=== PATIENT | female | born 1950 | race Caucasian/White ===

== ENCOUNTER 2023-02-25 09:53 | Outpatient (OUT) | payer MEDICARE, OTHER, SELFPAY ==
[2023-02-25 10:32] LABS: Basophils Absolute Auto 0.1 10^3/uL (0.0-0.1); Basophils Percent Auto 0.8 % (0.2-2.0); Eosinophils Absolute Auto 0.3 10^3/uL (0.0-0.7); Hematocrit 42.1 % (36.0-48.0); Hemoglobin 12.7 g/dL (12.0-16.0); Immature Granulocytes Abs Auto 0.02 10^3/uL (0.00-0.03); Immature Granulocytes Pct Auto 0.3 % (0.0-0.5); Lymphocytes Absolute Auto 2.3 10^3/uL (1.2-3.8); Lymphocytes Percent Auto 35.4 % (20.5-60.0); Mean Corpuscular HGB Conc 30.2 g/dL (29.9-35.2); Mean Corpuscular Hemoglobin 25.5 pg (26.7-34.0); Mean Corpuscular Volume 84.5 fL (81.0-99.0); Mean Platelet Volume 11.4 fL (9.5-13.5); Monocytes Absolute Auto 0.6 10^3/uL (0.3-0.8); Monocytes Percent Auto 9.3 % (1.7-12.0); Neutrophils Absolute Auto 3.1 10^3/uL (1.4-6.5); Neutrophils Percent Auto 49.2 % (43.0-75.0); Platelet Count 251 10^3/uL (150-450); Red Blood Count 4.98 10^6/uL (4.20-5.40); Red Cell Distribution Width 15.1 % (11.0-15.0); White Blood Count 6.4 10^3/uL (4.0-11.0)
[2023-02-25 11:15] LABS: Alanine Aminotransferase 22 U/L (14-59); Albumin Globulin Ratio 0.9; Albumin Level 3.5 g/dL (3.4-5.0); Alkaline Phosphatase 82 U/L (46-116); Anion Gap 10.2; Aspartate Amino Transferase 16 U/L (15-37); BUN Creatinine Ratio 13.9; Bilirubin Total 0.6 mg/dL (0.2-1.0); Calcium 8.6 mg/dL (8.5-10.1); Carbon Dioxide 31.9 mmol/L (21.0-32.0); Chloride 102 mmol/L (98-107); Chol HDL Ratio 3.2; Cholesterol 208 mg/dL (<=200); Estimated GFR (African America >60 (>=60); Estimated GFR (Non-African Ame >60 (>=60); Free T3 2.51 pg/mL (2.18-3.98); Globulin 3.7 g/dL; Glucose 104 mg/dL (74-106); HDL Cholesterol 65 mg/dL (40-60); Potassium 4.1 mmol/L (3.5-5.1); Sodium 140 mmol/L (136-145); Thyroid Stimulating Hormone 3.196 uIU/mL (0.358-3.740); Total Protein 7.2 g/dL (6.4-8.2); Triglycerides 79 mg/dL (<=150); Uric Acid 3.5 mg/dL (2.6-6.0); VLDL CHOLESTEROL 15.8 mg/dL
[2023-02-25 11:24] LABS: Estimated Average Glucose 123 mg/dL; Glycohemoglobin A1C 5.9 % (4.5-6.2)
[2023-02-26 14:09] LABS: Insulin 9.3 uIU/mL (2.6-24.9)
== END 2023-02-25 09:54 | disposition home or self-care (01) ==
LOC: LAB 09:59
PROVIDERS: PCP Family Medicine; Visit Provider Family Medicine
DX: R06.00 Dyspnea, unspecified (principal); I10 Essential (primary) hypertension; E55.9 Vitamin D deficiency, unspecified; S22.22XA Fracture of body of sternum, initial encounter for closed fracture; E78.5 Hyperlipidemia, unspecified; R73.09 Other abnormal glucose
CPT/HCPCS: 36415; 80053; 80061; 82306; 82607; 82746; 83036; 83525; 84436; 84443; 84481; 84550; 85025

== ENCOUNTER 2023-05-15 10:22 | Outpatient (OUT) | payer MEDICARE, OTHER, SELFPAY ==
--- NOTE | 2023-05-15 10:25 | MM_ITS ---
Patient Name: DARRYL ZAYAS MR#: [id number] : 1950 Exam Date: 05/15/2023 Ordering Doctor: DR VELMA WATKINS . RADIOLOGY REPORT PROCEDURE: MM TOMOSYNTHESIS SCREENING BI COMPARISON: MG MAMM SCREEN 3D ALLEN CAD, 05/14/2022. MG MAMM LT DIAG FU, 05/11/2021. MG MAMM SCREEN 3D ALLEN CAD, 04/26/2021. MG MAMM ALLEN SCRN W CAD DIG, 04/09/2013. INDICATIONS: screening Calculator Name NCI Breast Cancer Risk Assessment Tool 5 Year Breast Cancer Risk 3.50% Lifetime Breast Cancer Risk 8.00% Personal Breast Cancer No Personal Ovarian Cancer No Treatments None Family Cancers Mother with breast cancer at age 60; Aunt-maternal with liver cancer at age 67. LOCATION: [facility] BREAST COMPOSITION: Scattered areas fibroglandular density. FINDINGS: DIAGNOSTIC CATEGORY 2--BENIGN FINDING: RIGHT BREAST: No significant suspicious finding. Scattered benign-appearing calcifications are present. No significant change has occurred. LEFT BREAST: No significant suspicious finding. Scattered benign-appearing calcifications are present. Stable, chronic asymmetry within upper-outer quadrant, mid breast. No significant change has occurred. RECOMMENDATIONS: ROUTINE MAMMOGRAM AND CLINICAL EVALUATION IN 12 MONTHS. PLEASE NOTE: A NORMAL MAMMOGRAM DOES NOT EXCLUDE THE POSSIBILITY OF BREAST CANCER. A CLINICALLY SUSPICIOUS PALPABLE LUMP SHOULD BE BIOPSIED. Dictated by: Paul Prieto M.D. on 05/16/2023 at 07:45 Approved by: Paul Prieto M.D. on 05/16/2023 at 07:56
--- OUTSIDE RECORDS SUMMARY | 2023-05-15 10:27 | XMS_ITS | CCD ---
Author Name Unknown Address [address] [place] [address] Organization [facility] Care Team Providers Care Architectural Sales Consultant Name Role Phone HOY ., DR CARREON Admitting Unavailable HOY ., DR CARREON Attending Unavailable HOY ., DR CARREON Primary Care Unavailable HOY ., DR CARREON Consulting Unavailable HUNTER LAWRENCE Consulting Unavailable HOY ., DR CARREON Admitting Unavailable HOY ., DR CARREON Attending Unavailable HOY ., DR CARREON Primary Care Unavailable HOY ., DR CARREON Consulting Unavailable ZIEBER, DR PAUL Jarrett Consulting Unavailable HOY ., DR CARREON Admitting Unavailable HOY ., DR CARREON Attending Unavailable HOY ., DR CARREON Primary Care Unavailable HOY ., DR CARREON Consulting Unavailable NEFARIANNE MON Consulting Unavailable HOY ., DR CARREON Admitting Unavailable HOY ., DR CARREON Attending Unavailable HOY ., DR CARREON Primary Care Unavailable HOY ., DR CARREON Consulting Unavailable HOY ., DR CARREON Admitting Unavailable HOY ., DR CARREON Attending Unavailable HOY ., DR CARREON Primary Care Unavailable HOY ., DR CARREON Consulting Unavailable Allergies Allergy Classification Reported Allergen(s) Allergy Type Date of Onset Reaction(s) Facility (1 source) Aspirin Drug Allergy 4 [facility] (1 source) Codeine Drug Allergy 8 [facility] (1 source) Morphine Drug Allergy 9 [facility] (1 source) Propoxyphene Drug Allergy 3 [facility] (1 source) Sulfamethoxazole / Trimethoprim Drug Allergy 3 [facility] Problems Active Problems Problem Classification Problem Date Documented Date Episodic/Chronic Allergic reactions (1 source) Allergic bronchopulmonary aspergillosis; Translations: [ALLERG BRONCHOPULMNRY ASPERGILLOSIS] Onset: 02-10-2022 Chronic Chronic obstructive pulmonary disease and bronchiectasis (1 source) Bronchiectasis, uncomplicated; Translations: [BRONCHIECTASIS UNCOMPLICATED] Onset: 02-10-2022 Chronic Disorders of lipid metabolism (1 source) Hyperlipidemia, unspecified; Translations: [HYPERLIPIDEMIA UNSPECIFIED] Onset: 02-10-2022 Chronic Nutritional deficiencies (1 source) Vitamin D deficiency, unspecified; Translations: [VITAMIN D DEFICIENCY UNSPECIFIED] Onset: 02-10-2022 Chronic Other screening for suspected conditions (not mental disorders or infectious disease) (9 sources) Encounter for screening mammogram for malignant neoplasm of breast; Translations: [Encounter for screening for malignant neoplasm of rectum] Onset: 12-01-2021 Episodic Residual codes; unclassified (1 source) Family history of malignant neoplasm of breast; Translations: [FAMILY HX MALIG NEOPLASM OF BREAST] Onset: 05-18-2022 Episodic Residual codes; unclassified (1 source) Family history of malignant neoplasm of other organs or systems; Translations: [FAM HX MALIG NEOPLASM OTH ORGN/SYS] Onset: 05-18-2022 Episodic Past or Other Problems Problem Classification Problem Date Documented Da te Episodic/Chronic Deficiency and other anemia (1 source) Anemia, unspecified; Translations: [ANEMIA UNSPECIFIED] Onset: 02-10-2022 Episodic Diabetes mellitus without complication (1 source) Other abnormal glucose; Translations: [OTHER ABNORMAL GLUCOSE] Onset: 02-10-2022 Episodic Other infections; including parasitic (1 source) Unspecified infectious disease; Translations: [UNSPECIFIED INFECTIOUS DISEASE] Onset: 12-07-2021 Episodic Residual codes; unclassified (1 source) Insomnia, unspecified; Translations: [INSOMNIA UNSPECIFIED] Onset: 02-10-2022 Episodic Skin and subcutaneous tissue infections (4 sources) Cellulitis, unspecified; Translations: [CELLULITIS UNSPECIFIED] Onset: 11-29-2021 Episodic Superficial injury; contusion (4 sources) Contusion of right knee, initial encounter; Translations: [CONTUSION RIGHT KNEE INITIAL ENC] Onset: 02-07-2022 Episodic Results Test Name Value Interpretation Reference Range Facility MG MAMM SCREEN 3D ALLEN CADon 05-14-2022 MG MAMM SCREEN 3D ALLEN CAD Patient: DARRYL ZAYASAllison Exam Date: 05/14/2022 : 1950 Gender:F Ordering : DR VELMA WATKINS . Admission #: [id number] Family : Order #: [id number] CLICK HERE TO VIEW EXAM RADIOLOGY REPORT PROCEDURE: MAMMOGRAM SCREENING 3D BILATERAL CAD COMPARISON: MG MAMM LT DIAG FU, 05/11/2021. MG MAMM SCREEN 3D ALLEN CAD, 04/26/2021. MG MAMM SCREEN ALLEN W CAD, 04/25/2020. MG MAMM SCREEN ALLEN W CAD, 04/23/2019. INDICATIONS: Screening mammography Calculator Name NCI Breast Cancer Risk Assessment Tool 5 Year Breast Cancer Risk 3.50% Lifetime Breast Cancer Risk 8.50% Personal Breast Cancer No Personal Ovarian Cancer No Treatments None Family Cancers Mother with breast cancer at age 60; Aunt-maternal with liver cancer at age 67. LOCATION: [facility] BREAST COMPOSITION: Scattered areas fibroglandular density. FINDINGS: DIAGNOSTIC CATEGORY 2--BENIGN FINDING: RIGHT BREAST: No significant suspicious finding. Stable, chronic scattered asymmetries. No significant change has occurred. LEFT BREAST: No significant suspicious finding. Stable, chronic scattered asymmetries. No significant change has occurred. RECOMMENDATIONS: ROUTINE MAMMOGRAM AND CLINICAL EVALUATION IN 12 MONTHS. PLEASE NOTE: A NORMAL MAMMOGRAM DOES NOT EXCLUDE THE POSSIBILITY OF BREAST CANCER. A CLINICALLY SUSPICIOUS PALPABLE LUMP SHOULD BE BIOPSIED. Dictated by: Paul Prieto M.D. on 05/16/2022 at 13:10 Approved by: Paul Prieto M.D. on 05/16/2022 at 13:19 Normal [facility] INSULINon 02-08-2022 Insulin 6.6 uIU/mL Normal 2.6-24.9 [facility] Comment on above: Performed By: #### C BC #### [facility] [address] [address] [address] Lupe Evangelista CBC AUTO DIFFon 02-07-2022 BASO # 0.1 103/ul Normal 0.0-0.1 [facility] Comment on above: Performed By: #### C BC #### [facility] [address] [address] [address] Lupe Evangelista Basophils/100 WBC (Bld) 0.7 % Normal 0.2-2.0 [facility] Comment on above: Performed By: #### C BC #### [facility] [address] [place] [address] Dr. Lupe Evangelista EO # 0.4 103/ul Normal 0.0-0.7 [facility] Comment on above: Performed By: #### C BC #### [facility] [address] [place] [address] Dr. Lupe Evangelista Eosinophils/100 WBC (Bld) 5.4 % Normal 0.9-7.0 [facility] Comment on above: Performed By: #### C BC #### [facility] [address] [place] [address] Dr. Lupe Evangelista Erythrocyte distribution width (RBC) [Ratio] 15.9 % Critically high 11.0-15.0 [facility] Comment on above: Performed By: #### C BC #### [facility] [address] [place] [address] Dr. Lupe Evangelista Hematocrit (Bld) [Volume fraction] 39.8 % Normal 36.0-48.0 [facility] Comment on above: Performed By: #### C BC #### [facility] [address] [place] [address] Dr. Lupe Evangelista Hemoglobin (Bld) [Mass/Vol] 11.6 g/dL Critically low 12.0-16.0 [facility] Comment on above: Performed By: #### C BC #### [facility] [address] [place] [address] Dr. Lupe Evangelista IG # 0.02 10e3/ul Normal 0.00-0.03 [facility] Comment on above: Performed By: #### C BC #### [facility] [address] [place] [address] Dr. Lupe Evangelista IG % 0.2 % Normal 0.0-0.5 [facility] Comment on above: Performed By: #### C BC #### [facility] [address] [place] [address] Dr. Lupe Evangelista LYMPH # 2.9 103/ul Normal 1.2-3.8 [facility] Comment on above: Performed By: #### C BC #### [facility] [address] [place] [address] Dr. Lupe Evangelista Lymphocytes/100 WBC (Bld) 35.2 % Normal 20.5-60.0 [facility] Comment on above: Performed By: #### C BC #### [facility] [address] [place] [address] Dr. Lupe Evangelista MANUAL DIFF REQ NO Normal [facility] Comment on above: Performed By: #### C BC #### [facility] [address] [place] [address] Dr. Lupe Evangelista MCH (RBC) [Entitic mass] 23.4 pg Critically low 26.7-34.0 [facility] Comment on above: Performed By: #### C BC #### [facility] [address] [place] [address] Dr. Lupe Evangelista MCHC (RBC) [Mass/Vol] 29.1 g/dL Critically low 29.9-35.2 [facility] Comment on above: Performed By: #### C BC #### [facility] [address] [place] [address] Dr. Lupe Evangelista MCV (RBC) [Entitic vol] 80.4 fL Critically low 81.0-99.0 [facility] Comment on above: Performed By: #### C BC #### [facility] [address] [place] [address] Dr. Lupe Evangelista MONO # 0.8 103/ul Normal 0.3-0.8 [facility] Comment on above: Performed By: #### C BC #### [facility] [address] [place] [address] Dr. Lupe Evangelista Monocytes/100 WBC (Bld) 9.8 % Normal 1.7-12.0 [facility] Comment on above: Performed By: #### C BC #### [facility] [address] [place] [address] Dr. Lupe Evangelista NEUT # 4.0 103/ul Normal 1.4-6.5 [facility] Comment on above: Performed By: #### C BC #### [facility] [address] [place] [address] Dr. Lupe Evangelista Neutrophils/100 WBC (Bld) 48.7 % Normal 43.0-75.0 [facility] Comment on above: Performed By: #### C BC #### [facility] [address] [place] [address] Dr. Lupe Evangelista Platelet mean volume (Bld) [Entitic vol] 11.0 fL Normal 9.5-13.5 [facility] Comment on above: Performed By: #### C BC #### [facility] [address] [place] [address] Dr. Lupe Evangelista PLT 341 103/ul Normal 150-450 [facility] Comment on above: Performed By: #### C BC #### [facility] [address] [place] [address] Dr. Lupe Evangelista RBC 4.95 106/ul Normal 4.20-5.40 [facility] Comment on above: Performed By: #### C BC #### [facility] [address] [place] [address] Dr. Lupe Evangelista WBC 8.2 103/ul Normal 4.0-11.0 [facility] Comment on above: Performed By: #### C BC #### [facility] [address] [place] [address] Dr. Lupe Evangelista FREE THYROXINE INDEX T7on FTI 1.98 Normal 1.30-4.50 [facility] Comment on above: Performed By: #### C BC #### [facility] [address] [place] [address] Dr. Lupe Evangelista T3U 31.0 % Normal 30.0-39.0 [facility] Comment on above: Performed By: #### C BC #### [facility] [address] [place] [address] Dr. Lupe Evangelista T4 [Mass/Vol] 6.40 ug/dL Normal 4.80-13.90 [facility] Comment on above: Performed By: #### C BC #### [facility] [address] [place] [address] Dr. Lupe Evangelista GLYCOHEMOGLOBIN A1Con 2021 ADA RECOMMENDATION SEE BELOW Normal [facility] Comment on above: Result Comment: ADA RECOMMENDED LIMIT 4.0 - 6.0 ADA THERAPEUTIC TARGET < 7.0 ACTION SUGGESTED > 7.0 Performed By: #### C BC #### [facility] [address] [address] [address] Lupe Evangelista Glucose [Mass/Vol] 128 mg/dL Normal [facility] Comment on above: Performed By: #### C BC #### [facility] [address] [address] [address] Lupe Evangelista HbA1c (Bld) [Mass fraction] 6.1 % Normal 4.5-6.2 [facility] Comment on above: Performed By: #### C BC #### [facility] [address] [place] [address] Dr. Lupe Evangelista IRONon 02-07-2022 Iron [Mass/Vol] 44.0 ug/dL Critically low 50.0-170.0 [facility] Comment on above: Performed By: #### I DINO JACOBO #### [facility] [address] [place] [address] Dr. Lupe Evangelista LIPID PROFILEon 02-07-2022 CHOL-HDL RATIO NORM SEE BELOW Normal [facility] Comment on above: Result Comment: 3.3 - 4.4 LOW RISK 4.4 - 7.1 AVERAGE RISK 7.1 - 11.0 MODERATE RISK >11.0 HIGH RISK Performed By: #### C BC #### [facility] [address] [place] [address] Dr. Lupe Evangelista Cholesterol [Mass/Vol] 217 mg/dL Critically high <=200 [facility] Comment on above: Performed By: #### C BC #### [facility] [address] [place] [address] Dr. Lupe Evangelista Cholesterol in HDL [Mass/Vol] 60 mg/dL Normal 40-60 [facility] Comment on above: Performed By: #### C BC #### [facility] [address] [place] [address] Dr. Lupe Evangelista Cholesterol in LDL [Mass/Vol] 136.0 mg/dL Normal [facility] Comment on above: Performed By: #### C BC #### [facility] [address] [address] [address] Lupe Evangelista Cholesterol.total/Cho lesterol in HDL [Mass ratio] 3.6 {ratio} Normal [facility] Comment on above: Performed By: #### C BC #### [facility] [address] [address] [address] Lupe Evangelista HDL NORMAL > or = 60 mg/dl - LO W CARDIOVASCULAR RISK <40 mg/dl - HIGH CARDIOVASCULAR RISK Normal [facility] Comment on above: Performed By: #### C BC #### [facility] [address] [place] [address] Dr. Lupe Evangelista LDL CALC NORMAL SEE BELOW Normal [facility] Comment on above: Result Comment: <100 mg/dl OPTIMAL 100 - 129 mg/dl NEAR OR ABOVE OPTIMAL 130 - 159 mg/dl BORDERLINE HIGH 160 - 189 mg/dl HIGH >190 mg/dl VERY HIGH Performed By: #### C BC #### [facility] [address] [address] [address] Lupe Evangelista Triglyceride [Mass/Vol] 105 mg/dL Normal <=150 [facility] Comment on above: Performed By: #### C BC #### [facility] [address] [place] [address] Dr. Lupe Evangelista VLDL CALC 21.0 mg/dL Normal [facility] Comment on above: Performed By: #### C BC #### [facility] [address] [place] [address] Dr. Lupe Evangelista PROF 14(COMP METB)on 022 Albumin [Mass/Vol] 3.7 g/dL Normal 3.4-5.0 [facility] Comment on above: Performed By: #### C MP, LIPID, TSH, T7 #### [facility] [address] [address] [address] Lupe Evangelista Albumin/Globulin [Mass ratio] 1.0 {ratio} Normal [facility] Comment on above: Performed By: #### C MP, LIPID, TSH, T7 #### [facility] [address] [address] [address] Lupe Evangelista ALP [Catalytic activity/Vol] 86 U/L Normal 46-116 [facility] Comment on above: Performed By: #### C MP, LIPID, TSH, T7 #### [facility] [address] [place] [address] Dr. Lupe Evangelista ALT [Catalytic activity/Vol] 16 U/L Normal 14-59 [facility] Comment on above: Performed By: #### C MP, LIPID, TSH, T7 #### [facility] [address] [address] [address] Lupe Evangelista Anion gap [Moles/Vol] 7.0 mmol/L Normal [facility] Comment on above: Performed By: #### C MP, LIPID, TSH, T7 #### [facility] [address] [place] [address] Dr. Lupe Evangelista AST [Catalytic activity/Vol] 14 U/L Critically low 15-37 [facility] Comment on above: Performed By: #### C MP, LIPID, TSH, T7 #### [facility] [address] [place] [address] Dr. Lupe Evangelista Bilirubin [Mass/Vol] 0.4 mg/dL Normal 0.2-1.0 [facility] Comment on above: Performed By: #### C MP, LIPID, TSH, T7 #### [facility] [address] [place] [address] Dr. Lupe Evangelista Calcium [Mass/Vol] 8.9 mg/dL Normal 8.5-10.1 [facility] Comment on above: Performed By: #### C MP, LIPID, TSH, T7 #### [facility] [address] [place] [address] Dr. Lupe Evangelista Chloride [Moles/Vol] 102 mmol/L Normal 98-107 [facility] Comment on above: Performed By: #### C MP, LIPID, TSH, T7 #### [facility] [address] [place] [address] Dr. Lupe Evangelista CO2 [Moles/Vol] 34.3 mmol/L Critically high 21.0-32.0 [facility] Comment on above: Performed By: #### C MP, LIPID, TSH, T7 #### [facility] [address] [address] [address] Lupe Evangelista Creatinine [Mass/Vol] 0.73 mg/dL Normal 0.55-1.02 [facility] Comment on above: Performed By: #### C MP, LIPID, TSH, T7 #### [facility] [address] [address] [address] Lupe Evangelista EGFR-AF EQUATORIAL GUINEAN >60 Normal >=60 [facility] Comment on above: Performed By: #### C MP, LIPID, TSH, T7 #### [facility] [address] [place] [address] Dr. Lupe Evangelista EGFR-NON AF EQUATORIAL GUINEAN >60 Normal >=60 [facility] Comment on above: Performed By: #### C MP, LIPID, TSH, T7 #### [facility] [address] [place] [address] Dr. Lupe Evangelista Globulin (S) [Mass/Vol] 3.8 g/dL Normal [facility] Comment on above: Performed By: #### C MP, LIPID, TSH, T7 #### [facility] [address] [place] [address] Dr. Lupe Evangelista Glucose [Mass/Vol] 111 mg/dL Critically high 74-106 [facility] Comment on above: Performed By: #### C MP, LIPID, TSH, T7 #### [facility] [address] [address] [address] Lupe Evangelista Potassium [Moles/Vol] 4.3 mmol/L Normal 3.5-5.1 [facility] Comment on above: Performed By: #### C MP, LIPID, TSH, T7 #### [facility] [address] [address] [address] Lupe Evangelista Protein [Mass/Vol] 7.5 g/dL Normal 6.4-8.2 [facility] Comment on above: Performed By: #### C MP, LIPID, TSH, T7 #### [facility] [address] [address] [address] Lupe Evangelista Sodium [Moles/Vol] 139 mmol/L Normal 136-145 [facility] Comment on above: Performed By: #### C MP, LIPID, TSH, T7 #### [facility] [address] [place] [address] Dr. Lupe Evangelista Urea nitrogen [Mass/Vol] 11.0 mg/dL Normal 7.0-18.0 [facility] Comment on above: Performed By: #### C MP, LIPID, TSH, T7 #### [facility] [address] [place] [address] Dr. Lupe Evangelista Urea nitrogen/Creatinine [Mass ratio] 15.1 mg/mg Normal [facility] Comment on above: Performed By: #### C MP, LIPID, TSH, T7 #### [facility] [address] [place] [address] Dr. Lupe Evangelista TSHon 02-07-2022 TSH 2.224 uIU/mL Normal 0.358-3.740 [facility] Comment on above: Performed By: #### C BC #### [facility] [address] [place] [address] Dr. Lupe Evangelista VITAMIN D 25 OHon 02-07-2022 VIT D 25-OH 17.8 ng/mL Normal [facility] Comment on above: Performed By: #### I DONNELL VITAD #### [facility] [address] [place] [address] Dr. Lupe Evangelista VIT D RANGES SEE BELOW Normal [facility] Comment on above: Result Comment: <20 ng/mL Vit D deficient 20 - <30 ng/mL Vit D insufficient 30 - 100 ng/mL Vit D sufficient >100 ng/mL Potential Toxicity Performed By: #### I DONNELL VITAD #### [facility] [address] [place] [address] Dr. Lupe Evangelista XR CHEST 2 Von 02-07-2022 XR CHEST 2 V EXAM: XR CHEST 2 V HISTORY: Allergic bronchopulmonary aspergillosis . Follow-up study. COMPARISON: 03/09/2019 TECHNIQUE: Upright PA and lateral chest x-ray FINDINGS: The heart is not grossly enlarged and there is prominent elongation and suggested aneurysmal dilatation of the aorta. Opacity at the lung bases may be due to pleural and parenchymal scarring and are unchanged. The mid and upper lungs are clear. Diffuse osteopenia is noted with compression deformities in the thoracic spine. Surgical clips are seen in the upper abdomen. IMPRESSION: Opacity at the lung bases appear chronic in nature and may be related to pleural or parenchymal scarring. The upper lungs remain clear. The aorta is prominent in size. The overall appearance of the chest has not changed significantly. Further evaluation with a CT scan of the chest may be prudent at this time. Electronically authenticated by: ARIANNE BRAGA Date: 2022-02-07 17:56 Normal [facility] CBC AUTO DIFFon 12-01-2021 BASO # 0.1 103/ul Normal 0.0-0.1 [facility] Comment on above: Performed By: #### C BC #### [facility] [address] [place] [address] Dr. Lupe Evangelista Basophils/100 WBC (Bld) 0.8 % Normal 0.2-2.0 [facility] Comment on above: Performed By: #### C BC #### [facility] [address] [place] [address] Dr. Lupe Evangelista EO # 0.4 103/ul Normal 0.0-0.7 [facility] Comment on above: Performed By: #### C BC #### [facility] [address] [place] [address] Dr. Lupe Evangelista Eosinophils/100 WBC (Bld) 5.4 % Normal 0.9-7.0 [facility] Comment on above: Performed By: #### C BC #### [facility] [address] [place] [address] Dr. Lupe Evangelista Erythrocyte distribution width (RBC) [Ratio] 16.3 % Critically high 11.0-15.0 [facility] Comment on above: Performed By: #### C BC #### [facility] [address] [place] [address] Dr. Lupe Evangelista Hematocrit (Bld) [Volume fraction] 36.0 % Normal 36.0-48.0 [facility] Comment on above: Performed By: #### C BC #### [facility] [address] [place] [address] Dr. Lupe Evangelista Hemoglobin (Bld) [Mass/Vol] 10.4 g/dL Critically low 12.0-16.0 [facility] Comment on above: Performed By: #### C BC #### [facility] [address] [place] [address] Dr. Lupe Evangelista IG # 0.04 10e3/ul Critically high 0.00-0.03 [facility] Comment on above: Performed By: #### C BC #### [facility] [address] [place] [address] Dr. Lupe Evangelista IG % 0.6 % Critically high 0.0-0.5 [facility] Comment on above: Performed By: #### C BC #### [facility] [address] [place] [address] Dr. Lupe Evangelista LYMPH # 1.9 103/ul Normal 1.2-3.8 [facility] Comment on above: Performed By: #### C BC #### [facility] [address] [place] [address] Dr. Lupe Evangelista Lymphocytes/100 WBC (Bld) 29.1 % Normal 20.5-60.0 [facility] Comment on above: Performed By: #### C BC #### [facility] [address] [place] [address] Dr. Lupe Evangelista MANUAL DIFF REQ NO Normal [facility] Comment on above: Performed By: #### C BC #### [facility] Laboratory [address] [place] [address] Dr. Lupe Evangelista MCH (RBC) [Entitic mass] 24.9 pg Critically low 26.7-34.0 [facility] Comment on above: Performed By: #### C BC #### [facility] [address] [place] [address] Dr. Lupe Evangelista MCHC (RBC) [Mass/Vol] 28.9 g/dL Critically low 29.9-35.2 [facility] Comment on above: Performed By: #### C BC #### [facility] [address] [address] [address] Lupe Evangelista MCV (RBC) [Entitic vol] 86.1 fL Normal 81.0-99.0 [facility] Comment on above: Performed By: #### C BC #### [facility] [address] [address] [address] Lupe Evangelista MONO # 0.7 103/ul Normal 0.3-0.8 [facility] Comment on above: Performed By: #### C BC #### [facility] [address] [address] [address] Lupe Evangelista Monocytes/100 WBC (Bld) 10.7 % Normal 1.7-12.0 [facility] Comment on above: Performed By: #### C BC #### [facility] [address] [address] [address] Lupe Evangelista NEUT # 3.4 103/ul Normal 1.4-6.5 [facility] Comment on above: Performed By: #### C BC #### [facility] [address] [address] [address] Lupe Evangelista Neutrophils/100 WBC (Bld) 53.4 % Normal 43.0-75.0 [facility] Comment on above: Performed By: #### C BC #### [facility] [address] [address] [address] Lupe Evangelista Platelet mean volume (Bld) [Entitic vol] 10.6 fL Normal 9.5-13.5 [facility] Comment on above: Performed By: #### C BC #### [facility] [address] [address] [address] Lupe Evangelista PLT 320 103/ul Normal 150-450 [facility] Comment on above: Performed By: #### C BC #### [facility] [address] [address] [address] Lupe Evangelista RBC 4.18 106/ul Critically low 4.20-5.40 [facility] Comment on above: Performed By: #### C BC #### [facility] [address] [place] [address] Dr. Lupe Evangelista WBC 6.4 103/ul Normal 4.0-11.0 [facility] Comment on above: Performed By: #### C BC #### [facility] [address] [place] [address] Dr. Lupe Evangelista CRPon 12-01-2021 CRP 1.6 mg/dL Critically high <=1.0 [facility] Comment on above: Performed By: #### C RP #### [facility] [address] [place] [address] Dr. Lupe Evangelista CBC AUTO DIFFon 11-29-2021 BASO # 0.1 103/ul Normal 0.0-0.1 [facility] Comment on above: Performed By: #### C BC #### [facility] [address] [place] [address] Dr. Lupe Evangelista Basophils/100 WBC (Bld) 0.6 % Normal 0.2-2.0 [facility] Comment on above: Performed By: #### C BC #### [facility] [address] [place] [address] Dr. Lupe Evangelista EO # 0.4 103/ul Normal 0.0-0.7 [facility] Comment on above: Performed By: #### C BC #### [facility] [address] [place] [address] Dr. Lupe Evangelista Eosinophils/100 WBC (Bld) 5.4 % Normal 0.9-7.0 [facility] Comment on above: Performed By: #### C BC #### [facility] [address] [place] [address] Dr. Lupe Evangelista Erythrocyte distribution width (RBC) [Ratio] 16.5 % Critically high 11.0-15.0 [facility] Comment on above: Performed By: #### C BC #### [facility] [address] [place] [address] Dr. Lupe Evangelista Hematocrit (Bld) [Volume fraction] 36.1 % Normal 36.0-48.0 [facility] Comment on above: Performed By: #### C BC #### [facility] [address] [place] [address] Dr. Lupe Evangelista Hemoglobin (Bld) [Mass/Vol] 10.6 g/dL Critically low 12.0-16.0 [facility] Comment on above: Performed By: #### C BC #### [facility] [address] [place] [address] Dr. Lupe Evangelista IG # 0.03 10e3/ul Normal 0.00-0.03 [facility] Comment on above: Performed By: #### C BC #### [facility] [address] [place] [address] Dr. Lupe Evangelista IG % 0.4 % Normal 0.0-0.5 [facility] Comment on above: Performed By: #### C BC #### [facility] [address] [place] [address] Dr. Lupe Evangelista LYMPH # 2.3 103/ul Normal 1.2-3.8 [facility] Comment on above: Performed By: #### C BC #### [facility] [address] [place] [address] Dr. Lupe Evangelista Lymphocytes/100 WBC (Bld) 29.9 % Normal 20.5-60.0 [facility] Comment on above: Performed By: #### C BC #### [facility] [address] [place] [address] Dr. Lupe Evangelista MANUAL DIFF REQ NO Normal [facility] Comment on above: Performed By: #### C BC #### [facility] [address] [place] [address] Dr. Lupe Evangelista MCH (RBC) [Entitic mass] 25.4 pg Critically low 26.7-34.0 [facility] Comment on above: Performed By: #### C BC #### [facility] [address] [place] [address] Dr. Lupe Evangelista MCHC (RBC) [Mass/Vol] 29.4 g/dL Critically low 29.9-35.2 [facility] Comment on above: Performed By: #### C BC #### [facility] [address] [address] [address] Lupe Evangelista MCV (RBC) [Entitic vol] 86.4 fL Normal 81.0-99.0 [facility] Comment on above: Performed By: #### C BC #### [facility] [address] [address] [address] Lupe Evangelista MONO # 0.9 103/ul Critically high 0.3-0.8 [facility] Comment on above: Performed By: #### C BC #### [facility] [address] [address] [address] Lupe Evangelista Monocytes/100 WBC (Bld) 10.9 % Normal 1.7-12.0 [facility] Comment on above: Performed By: #### C BC #### [facility] [address] [place] [address] Dr. Lupe Evangelista NEUT # 4.1 103/ul Normal 1.4-6.5 [facility] Comment on above: Performed By: #### C BC #### [facility] [address] [address] [address] Lupe Evangelista Neutrophils/100 WBC (Bld) 52.8 % Normal 43.0-75.0 [facility] Comment on above: Performed By: #### C BC #### [facility] [address] [address] [address] Lupe Evangelista Platelet mean volume (Bld) [Entitic vol] 11.2 fL Normal 9.5-13.5 [facility] Comment on above: Performed By: #### C BC #### [facility] [address] [address] [address] Lupe Evangelista PLT 351 103/ul Normal 150-450 [facility] Comment on above: Performed By: #### C BC #### [facility] [address] [address] [address] Lupe Evangelista RBC 4.18 106/ul Critically low 4.20-5.40 [facility] Comment on above: Performed By: #### C BC #### [facility] [address] [place] [address] Dr. Lupe Evangelista WBC 7.8 103/ul Normal 4.0-11.0 [facility] Comment on above: Performed By: #### C BC #### [facility] [address] [place] [address] Dr. Lupe Evangelista CRPon 11-29-2021 CRP 1.7 mg/dL Critically high <=1.0 [facility] Comment on above: Performed By: #### C RP, CMP #### [facility] [address] [place] [address] Dr. Lupe Evangelista CULTURE BLOODon 11-29-2021 Microscopic examination of blood, culture Culture Observations: NO GROWTH AT 5 DAYS. Normal [facility] Comment on above: Performed By: #### C BC #### [facility] [address] [place] [address] Dr. Lupe Evangelista Microscopic examination of blood, culture Culture Observations: NO GROWTH AT 5 DAYS. Normal [facility] Comment on above: Performed By: #### C BC #### [facility] [address] [place] [address] Dr. Lupe Evangelista PROF 14(COMP METB)on 022 Albumin [Mass/Vol] 3.5 g/dL Normal 3.4-5.0 [facility] [place] Comment on above: Performed By: #### C RP, CMP #### [facility] [address] [place] [address] Dr. Lupe Evangelista Albumin/Globulin [Mass ratio] 0.9 {ratio} Normal [facility] Comment on above: Performed By: #### C RP, CMP #### [facility] [address] [place] [address] Dr. Lupe Evangelista ALP [Catalytic activity/Vol] 105 U/L Normal 46-116 [facility] Comment on above: Performed By: #### C RP, CMP #### [facility] [address] [place] [address] Dr. Lupe Evangelista ALT [Catalytic activity/Vol] 15 U/L Normal 14-59 [facility] Comment on above: Performed By: #### C RP, CMP #### [facility] [address] [address] [address] Lupe Evangelista Anion gap [Moles/Vol] 7.3 mmol/L Normal [facility] Comment on above: Performed By: #### C RP, CMP #### [facility] [address] [address] [address] Lupe Evangelista AST [Catalytic activity/Vol] 21 U/L Normal 15-37 [facility] Comment on above: Performed By: #### C RP, CMP #### [facility] [address] [address] [address] Lupe Evangelista Bilirubin [Mass/Vol] 0.4 mg/dL Normal 0.2-1.0 [facility] Comment on above: Performed By: #### C RP, CMP #### [facility] [address] [place] [address] Dr. Lupe Evangelista Calcium [Mass/Vol] 8.5 mg/dL Normal 8.5-10.1 [facility] [place] Comment on above: Performed By: #### C RP, CMP #### [facility] [address] [place] [address] Dr. Lupe Evangelista Chloride [Moles/Vol] 102 mmol/L Normal 98-107 [facility] Comment on above: Performed By: #### C RP, CMP #### [facility] [address] [place] [address] Dr. Lupe Evangelista CO2 [Moles/Vol] 31.9 mmol/L Normal 21.0-32.0 [facility] Comment on above: Performed By: #### C RP, CMP #### [facility] [address] [place] [address] Dr. Lupe Evangelista Creatinine [Mass/Vol] 0.76 mg/dL Normal 0.55-1.02 [facility] Comment on above: Performed By: #### C RP, CMP #### [facility] [address] [place] [address] Dr. Lupe Evangelista EGFR-AF EQUATORIAL GUINEAN >60 Normal >=60 [facility] Comment on above: Performed By: #### C RP, CMP #### [facility] [address] [address] [address] Lupe Evangelista EGFR-NON AF EQUATORIAL GUINEAN >60 Normal >=60 [facility] Comment on above: Performed By: #### C RP, CMP #### [facility] [address] [address] [address] Lupe Evangelista Globulin (S) [Mass/Vol] 3.9 g/dL Normal [facility] Comment on above: Performed By: #### C RP, CMP #### [facility] [address] [address] [address] Lupe Evangelista Glucose [Mass/Vol] 92 mg/dL Normal 74-106 [facility] Comment on above: Performed By: #### C RP, CMP #### [facility] [address] [address] [address] Lupe Evangelista Potassium [Moles/Vol] 4.2 mmol/L Normal 3.5-5.1 [facility] Comment on above: Performed By: #### C RP, CMP #### [facility] [address] [address] [address] Lupe Evangelista Protein [Mass/Vol] 7.4 g/dL Normal 6.4-8.2 [facility] Comment on above: Performed By: #### C RP, CMP #### [facility] [address] [address] [address] Lupe Evangelista Sodium [Moles/Vol] 137 mmol/L Normal 136-145 [facility] Comment on above: Performed By: #### C RP, CMP #### [facility] [address] [address] [address] Lupe Evangelista Urea nitrogen [Mass/Vol] 8.0 mg/dL Normal 7.0-18.0 [facility] Comment on above: Performed By: #### C RP, CMP #### [facility] [address] [address] [address] Lupe Evangelista Urea nitrogen/Creatinine [Mass ratio] 10.5 mg/mg Normal [facility] Comment on above: Performed By: #### C RP, CMP #### [facility] [address] [place], [place] [address] Dr. Lupe Evangelista [facility] SED [facility]ATE 27 mm/hr Normal <=30 [facility] Comment on above: Performed By: #### S EDR #### [facility] [address] [place], [place] [address] Dr. Lupe Evangelista XR KNEE RT 4V or >on 022 XR KNEE RT 4V or > EXAM: XR KNEE RT 4V or > HISTORY: . Contusion of right knee . COMPARISON: None. TECHNIQUE: 4 views FINDINGS: No fracture or dislocation of the knee is noted. There is slight narrowing of the knee joint. Early arthritic changes of the patellofemoral joint are noted. No suprapatellar effusion is noted. There appears to be soft tissue swelling anterior to the patella and tibia. No radiopaque foreign body is noted within the soft tissues. IMPRESSION: 1 early arthritic changes of the right knee. 2. No acute fracture. 3. Soft tissue swelling anteriorly. Electronically authenticated by: HUNTER LAWRENCE Date: 2021-11-15 21:55 Normal [facility] Encounters Encounter Date Encounter Type Care Provider Facility Start: 05-14-2022 End: 05-15-[address] VELMA WATKINS . Facility: Start: 02-07-2022 End: 02-08-[address] VELMA WATKINS . Facility: Start: 12-01-2021 End: 12-02-[address] VELMA WATKINS . Facility:[facility] Start: 11-29-2021 End: 11-30-[address] VELMA WATKINS . Facility: Start: 11-15-2021 End: 11-16-[address] VELMA WATKINS . Facility:[facility] Payers Date Payer Category Payer Medicare [id number] 1960 Unknown [id number] 1950 Unknown [id number] 2.16.84 [id number] 1950 Unknown [id number] [id number] [id number] 1950 Unknown [id number] 2.16.84 [id number] 1950 Unknown [id number] 2.16.84 [id number] 1950 Unknown [id number] 2.16.84 [id number] Summary Purpose Family History No Family History Records Found Advance Directives No Advanced Directives Records Found Additional Source Comments INFORMATION SOURCE (unrecogn ized section and content) DATE CREATED AUTHOR 05/19/2022 [facility] FOR RECORDS PERTAINING TO PATIENTS WHO ARE OR HAVE BEEN ENROLLED IN A CHEMICAL DEPENDENCY/SUBSTANCEABUSE PROGRAM, SOME INFORMATION MAY BE OMITTED. This clinical summary was aggregated from multiple sources. Caution should be exercised in using it in the provision of clinical care. This summary normalizes information from multiple sources, and as a consequence, information in this document may materially change the coding, format and clinical context of patient data. In addition, data may be omitted in some cases. CLINICAL DECISIONS SHOULD BE BASED ON THE PRIMARY CLINICAL RECORDS. [facility]. provides no warranty or guarantee of the accuracy or completeness of information in this document.
== END 2023-05-15 10:23 | disposition home or self-care (01) ==
LOC: MAMMO 10:22
PROVIDERS: PCP Family Medicine; Visit Provider Family Medicine
DX: Z12.31 Encounter for screening mammogram for malignant neoplasm of breast (principal); Z80.3 Family history of malignant neoplasm of breast; Z80.8 Family history of malignant neoplasm of other organs or systems
CPT/HCPCS: 77063; 77067

== ENCOUNTER 2023-08-14 13:26 | Outpatient (OUT) | payer MEDICARE, OTHER, SELFPAY | END 2023-08-14 13:27 | disposition home or self-care (01) | LOC: PST 13:26 | PROVIDERS: PCP Family Medicine; Visit Provider Surgery | DX: Z01.818 Encounter for other preprocedural examination (principal); D48.5 Neoplasm of uncertain behavior of skin ==

== ENCOUNTER 2023-09-18 14:01 | Day surgery (SDC) | payer MEDICARE, OTHER, SELFPAY ==
--- NOTE | 2023-09-18 | OP_ITS ---
OPERATION DATE: 09/18/2023 PREOPERATIVE DIAGNOSIS: Enlarging lesion of the right ear. POSTOPERATIVE DIAGNOSIS: Enlarging lesion of the right ear. PROCEDURE: Excisional biopsy enlarging lesion of the right ear, the anti- helix. Total size 1 cm. SURGEON: Galileo Cleary M.D. INDICATIONS AND CONSENT: Patient is a 73-year-old female with history of enlarging lesion of the right ear. It did have a scabbed area to it that came off, but still remains raised. There are no open areas or ulceration. It is painful at times. Indications, risks, benefits, alternatives of proceeding with excisional biopsy under local anesthesia were explained extensively to the patient, including risks of bleeding, infection, scarring, pain, recurrence or need for further surgery. All of her questions were answered. Informed consent was obtained. PROCEDURE: Patient brought to the procedure room, placed in the supine position. The area was prepped and draped in the usual sterile fashion. It was anesthetized with 0.5% Marcaine plain. It was excised in elliptical fashion down to subcutaneous tissue. Total length of the incision was 1 cm. It was sent off to Pathology. Incision was then closed with interrupted 5-0 nylon sutures. There was good hemostasis. A small amount of antibiotic ointment was applied. The patient was sent to recovery and then discharged to home in good condition, is to follow up in 7-10 days for suture removal. She is to call sooner with any problems or questions. She should take Tylenol or ibuprofen as needed for pain. CC: Jaime Crawford
[2023-09-18 14:05] VITALS: BP 173/86; PULSE 67; TEMP 36.2; O2SAT 98; BMI 24.1
--- OUTSIDE RECORDS SUMMARY | 2023-09-18 14:22 | XMS_ITS ---
Patient Summarization (C-CDA 2.1 CCD) Created on: September 18, 2023 DARRYL ZAYAS : 1950 Sex: Female Author Organization Sample organization Care Team Providers Care Manager Library Name Role Phone NAYY ., DR CARREON Admitting Unavailable HOY ., [...] Unavailable HOY ., DR CARREON Consulting Unavailable ARIANNE BRAGA Consulting Unavailable HOY ., DR CARREON Admitting Unavailable HOY ., DR CARREON Attending Unavailable HOY ., DR CARREON Primary Care Unavailable HOY ., DR CARREON Consulting Unavailable HOY ., DR CARREON Admitting Unavailable HOY ., DR CARREON Attending Unavailable HOY ., DR CARREON Primary Care Unavailable HOY ., DR CARREON Consulting Unavailable NayyAvinashVelma Primary Care Physician [phone] Galileo MONTE Attending Unavailable NayyAvinashVelma Referring Unavailable Allergies Allergy Classification Reported Allergen(s) Allergy Type Date of Onset Reaction(s) Facility (2 sources) Aspirin; Translations: [aspirin] Drug Allergy 4 [facility] Repository (2 sources) Codeine; Translations: [codeine] Drug Allergy 8 [facility] (2 sources) Morphine; Translations: [morphine] Drug Allergy 9 [facility] (2 sources) Propoxyphene; Translations: [Darvon] Drug Allergy 3 [facility] (1 source) Sulfamethoxazole / Trimethoprim Drug Allergy 3 [facility] (2 sources) Acetaminophen / HYDROcodone; Translations: [acetaminophen-hydro codone] Drug Allergy Dyspnea (finding) [facility] (1 source) Aspirin; Translations: [aspirin] Drug Allergy Dyspnea (finding) [facility] (1 source) Codeine; Translations: [codeine] Drug Allergy Dyspnea (finding) [facility] (1 source) Morphine; Translations: [morphine] Drug Allergy Dyspnea (finding) [facility] (1 source) Propoxyphene; Translations: [propoxyphene] Drug Allergy Dyspnea (finding) [facility] Encounters Encounter Date Encounter Type Care Provider Facility Start: 07-31-2023 End: 08-01-2023 ambulatory Galileo MONTE Facility:[facility] Start: 07-31-2023 End: 07-31-2023 Patient encounter procedure Galileo MONTE [facility] Start: 07-19-2023 ambulatory Galileo MONTE Facility:[facility] Start: 05-14-2022 End: 05-15-[address] VELMA MULLER . Facility:[facility] Start: 02-07-2022 End: 02-08-[address] VELMA MULLER . Facility:[facility] Start: 12-01-2021 End: 12-02-[address] VELMA MULLER . Facility:[facility] Start: 11-29-2021 End: 11-30-[address] VELMA MULLER . Facility:[facility] Start: 11-15-2021 End: 11-16-[address] VELMA MULLER . Facility:[facility] Immunizations Immunization Date Immunization Notes Care Provider Fa cility 12-07-2021 SARS-CoV-2 (COVID-19 ) [id number] Galileo MONTE [facility] 07-14-2021 SARS-CoV-2 mRNA (lxmguuyklge-fdmc-rkmlf se) vaccine Galileo MONTE [facility] 12-27-2020 SARS-CoV-2 (COVID-19 ) mRNA BNT-162b2 [employer]lin[employer] Galileo BomodaL [facility] 05-18-2020 SARS-CoV-2 (COVID-19 ) mRNA BNT-162b2 [employer] Galileo BomodaL [facility] Comment on above: Result Comment: 2023: [id number] 04-27-2020 SARS-CoV-2 (COVID-19 ) mRNA BNT-162b2 [employer]lin[employer] Galileo BomodaL [facility] Comment on above: Result Comment: 2023: [id number] Medications Current Medications Medication Drug Class(es) Dates Sig (Normalized) Sig (Original) albuterol 0.83 mg/ml inhalation solution (1 source) beta2-Adrenergic Agonist Start: 07-19-2023 take 2.5 mg by inhalation every six hours albuterol 0.083% Inh Marlene 3 mL 2.5 mg, 3 mL, NEB, q6hr Shortness of breath or wheezing, Refill(s) 0 Start Date: 07/19/23 Status: Ordered Breo Ellipta 200 mcg-25 mcg/inh inhalation powder (1 source) Start: 07-19-2023 take 1 puff(s) by inhalation once daily Breo Ellipta 200 mcg-25 mcg/inh inhalation powder 1 puff(s), Inhalation, Daily, Refill(s) 0 Start Date: 07/19/23 Status: Ordered colchicine 0.6 mg oral tablet (1 source) Start: 07-31-2023 take 1 tablet by mouth once daily colchicine 0.6 mg Tab 0.6 mg = 1 tab(s), Oral, Daily, Refills(s) 0 Start Date: 07/31/23 Status: Ordered lansoprazole 15 mg disintegrating oral tablet (1 source) Proton Pump Inhibitor Start: 07-19-2023 take 1 tablet by mouth once daily lansoprazole 15 mg Dis Tab 15 mg = 1 tab(s), Oral, Daily, Refills(s) 0 Start Date: 4/26/24 Status: Ordered oxyCODONE hydrochloride 5 mg oral tablet (1 source) Opioid Agonist Start: 07-19-2023 take 1 tablet by mouth once daily as needed for pain oxyCODONE 5 mg Tab 5 mg = 1 tab(s), Oral, Daily, PRN as needed for pain, Refills(s) 0 Start Date: 07/19/23 Status: Ordered Vitamin D2 2000 intl units oral capsule (1 source) Start: 07-19-2023 take 1 capsule by mouth once daily Vitamin D2 2000 intl units oral capsule 50 mcg = 1 cap(s), Oral, Daily, Refills(s) 0 Start Date: 07/19/23 Status: Ordered Payers Date Payer Category Payer Medicare [id number] 1960 Unknown [id number] 1950 Unknown [id number] 2.16.84 [id number] 1950 Unknown [id number] 2.16.84 [id number] 1950 Unknown [id number] 2.16.84 [id number] 1950 Unknown [id number] 2.16.84 [id number] 1950 Unknown [id number] 2.16.84 [id number] 1950 Unknown [id number] 2.16.8 [id number] Problems Active Problems Problem Classification Problem Date Documented Date Episodic/Chronic Allergic reactions (1 source) Allergic bronchopulmonary aspergillosis; Translations: [ALLERG BRONCHOPULMNRY ASPERGILLOSIS] Onset: 02-10-2022 Chronic Allergic reactions (1 source) Eczema 07-19-2023 Episodic Asthma (1 source) Asthma 07-19-2023 Chronic Chronic obstructive pulmonary disease and bronchiectasis (2 sources) Bronchiectasis, uncomplicated; Translations: [Chronic obstructive lung disease] Onset: 02-10-2022 07-19-2023 Chronic Disorders of lipid metabolism (1 source) Hyperlipidemia, unspecified; Translations: [HYPERLIPIDEMIA UNSPECIFIED] Onset: 02-10-2022 Chronic Esophageal disorders (1 source) Gastroesophageal reflux disease 07-19-2023 Chronic Essential hypertension (1 source) Hypertensive disorder 07-19-2023 Chronic Gout and other crystal arthropathies (1 source) Gout 07-19-2023 Chronic Neoplasms of unspecified nature or uncertain behavior (2 sources) Neoplasm of uncertain behavior of skin; Translations: [Neoplasm of uncertain behavior of skin] Onset: 07-31-2023 Episodic Nutritional deficiencies (2 sources) Vitamin D deficiency, unspecified; Translations: [Vitamin D deficiency] Onset: 02-10-2022 07-19-2023 Chronic Nutritional deficiencies (1 source) Vitamin B12 deficiency (non anemic) 07-19-2023 Episodic Osteoporosis (1 source) Osteoporosis 07-19-2023 Chronic Other screening for suspected conditions (not [...] MALIG NEOPLASM OTH ORGN/SYS] Onset: 05-18-2022 Episodic Residual codes; unclassified (1 source) Insomnia 07-19-2023 Episodic Past or Other Problems Problem Classification [...] RIGHT KNEE INITIAL ENC] Onset: 02-07-2022 Episodic Procedures Date Procedure Procedure Detail Performing Clinician Appendectomy Galileo CAMACHOL Cholecystectomy Galileo CAMACHOL Esophageal hiatus hernia repair Galileo CAMACHOL Extraction of cataract Prosper jonh MONTE History of operative procedure on hip Galileo CAMACHOL Lumpectomy of left breast Nidia CAMACHOMetropolist Repair of joint of right hip [facility] [employer] Results Test Name Value Interpretation Reference Range Facility Consent for Procedure/Surger yon 08-02-2023 Consent for Procedure/Surgery [id number]#1 .00TIFF [facility] Facesheeton 08-01-2023 Facesheet [id number]# 1.00TIFF [facility] Ambulatory Visit Summaryon 0 07-31-2023 Ambulatory Visit Summary DARRYL ZAYAS :1950 Visit Date:07/31/2023 Ambulatory Visit Instructions Your Care Team Attending Physician - Galileo MONTE MD Primary Care Physician - Velma Muller MD Referring Physician - Velma Muller MD This Is Your Medications List Contact prescribing physician if questions or concerns albuterol (albuterol 0.083% Inh Marlene 3 mL) colchicine (colchicine 0.6 mg Tab) ergocalciferol (Vitamin D2 2000 intl units oral capsule) fluticasone-vilantero l (Breo Ellipta 200 mcg-25 mcg/inh inhalation powder) lansoprazole (lansoprazole 15 mg Dis Tab) oxycodone (oxyCODONE 5 mg Tab) Procedures Performed Appendectomy, Arthroplasty of right hip, Cataract extraction, Cholecystectomy, History of hip surgery, Lumpectomy of left breast, Repair of diaphragmatic hiatal hernia. Discharge Vitals Heart Rate (Peripheral) 68 Respiratory Rate 16 Blood Pressure 120/62 Height 162.5 cm Height 64 in Weight 65.2 kg Weight 143.44 lb BMI 24.69 Medications What How Much When Instructions Unchanged albuterol (albuterol 0.083% Inh Marlene 3 mL) 3 Milliliter Nebulized inhalation (aerosol) Every 6 hours as needed for Shortness of breath or wheezing Contact prescribing physician if questions or concerns Unchanged colchicine (colchicine 0.6 mg Tab) 1 Tablets By Mouth Every day Contact prescribing physician if questions or concerns Unchanged ergocalciferol (Vitamin D2 2000 intl units oral capsule) 1 Capsules By Mouth Every day Contact prescribing physician if questions or concerns Unchanged fluticasone-vilantero l (Breo Ellipta 200 mcg-25 mcg/ inh inhalation powder) 1 Puffs Inhalation Every day Contact prescribing physician if questions or concerns Unchanged lansoprazole (lansoprazole 15 mg Dis Tab) 1 Tablets By Mouth Every day Contact prescribing physician if questions or concerns Unchanged oxycodone (oxyCODONE 5 mg Tab) 1 Tablets By Mouth Every day as needed for as needed for pain Contact prescribing physician if questions or concerns Allergies Darvon (SOB - Shortness of breath) Vicodin (SOB - Shortness of breath) aspirin (SOB - Shortness of breath) codeine (SOB - Shortness of breath) morphine (SOB - Shortness of breath) Problems Ongoing - Any problem that you are currently receiving treatment for. Asthma Chronic obstructive lung disease Eczema Gastroesophageal reflux disease Gout Hypertensive disorder Insomnia Osteoporosis Vitamin B12 deficiency (non anemic) Vitamin D deficiency Patient Survey You may receive a survey via text or e-mail asking about your office visit. Please share your experience with us by completing your survey. We appreciate your feedback and thank you for choosing us for your care. Normal [facility] MG MAMM SCREEN 3D ALLEN CADon 05-14-2022 MG MAMM SCREEN 3D ALLEN CAD Patient: DARRYL ZAYAS Exam Date: 05/14/2022 : 1950 Gender:F Ordering : DR VELMA MULLER . Admission #: [id number] Family : Order #: [id number] CLICK HERE TO VIEW EXAM RADIOLOGY REPORT [...] liver cancer at age 66. LOCATION: [facility] BREAST COMPOSITION: Scattered areas fibroglandular density. FINDINGS: [...] M.D. on 05/16/2022 at 13:19 Normal [facility] INSULINon 02-08-2022 Insulin 6.6 uIU/mL Normal 2.6-24.9 [facility] Comment on above: Performed By: #### C BC #### [facility] [address] [place] [address] Dr. Lupe Evangelista CBC AUTO DIFFon 02-07-2022 BASO # 0.1 103/ul Normal 0.0-0.1 [facility] Comment on above: Performed By: #### C BC #### [facility] [address] [place] [address] Dr. Lupe Evangelista Basophils/100 WBC (Bld) 0.7 % Normal 0.2-2.0 [facility] Comment on above: Performed By: #### C BC #### [facility] [address] [place] [address] Dr. Lupe Evangelista EO # 0.4 103/ul Normal 0.0-0.7 [facility] Comment on above: Performed By: #### C BC #### [facility] [address] [place] [address] Dr. Lupe Evangelista Eosinophils/100 WBC (Bld) 5.4 % Normal 0.9-7.0 [facility] Comment on above: Performed By: #### C BC #### [facility] [address] [place] [address] Dr. Lupe Evangelista Erythrocyte distribution width (RBC) [Ratio] 15.9 % Critically high 11.0-15.0 [facility] Comment on above: Performed By: #### C BC #### [facility] [address] [place] [address] Dr. Lupe Evangelista Hematocrit (Bld) [Volume fraction] 39.8 % Normal 36.0-48.0 [facility] Comment on above: Performed By: #### C BC #### [facility] [address] [place] [address] Dr. Lupe Evangelista Hemoglobin (Bld) [Mass/Vol] 11.6 g/dL Critically low 12.0-16.0 [facility] Comment on above: Performed By: #### C BC #### [facility] [address] [place] [address] Dr. Lupe Evangelista IG # 0.02 10e3/ul Normal 0.00-0.03 [facility] Comment on above: Performed By: #### C BC #### [facility] [address] [place] [address] Dr. Lupe Evangelista IG % 0.2 % Normal 0.0-0.5 [facility] Comment on above: Performed By: #### C BC #### [facility] [address] [place] [address] Dr. Lupe Evangelista LYMPH # 2.9 103/ul Normal 1.2-3.8 [facility] Comment on above: Performed By: #### C BC #### [facility] [address] [place] [address] Dr. Lupe Evangelista Lymphocytes/100 WBC (Bld) 35.2 % Normal 20.5-60.0 [facility] Comment on above: Performed By: #### C BC #### [facility] [address] [place] [address] Dr. Lupe Evangelista MANUAL DIFF REQ NO Normal [facility] Comment on above: Performed By: #### C BC #### [facility] [address] [place] [address] Dr. Lupe Evangelista MCH (RBC) [Entitic mass] 23.4 pg Critically low 26.7-34.0 [facility] Comment on above: Performed By: #### C BC #### [facility] [address] [place] [address] Dr. Lupe Evangelista MCHC (RBC) [Mass/Vol] 29.1 g/dL Critically low 29.9-35.2 [facility] Comment on above: Performed By: #### C BC #### [facility] [address] [place] [address] Dr. Lupe Evangelista MCV (RBC) [Entitic vol] 80.4 fL Critically low 81.0-99.0 [facility] Comment on above: Performed By: #### C BC #### [facility] [address] [place] [address] Dr. Lupe Evangelista MONO # 0.8 103/ul Normal 0.3-0.8 [facility] Comment on above: Performed By: #### C BC #### [facility] [address] [place] [address] Dr. Lupe Evangelista Monocytes/100 WBC (Bld) 9.8 % Normal 1.7-12.0 [facility] Comment on above: Performed By: #### C BC #### [facility] [address] [place] [address] Dr. Lupe Evangelista NEUT # 4.0 103/ul Normal 1.4-6.5 [facility] Comment on above: Performed By: #### C BC #### [facility] [address] [place] [address] Dr. Lupe Evangelista Neutrophils/100 WBC (Bld) 48.7 % Normal 43.0-75.0 [facility] Comment on above: Performed By: #### C BC #### [facility] [address] [place] [address] Dr. Lupe Evangelista Platelet mean volume (Bld) [Entitic vol] 11.0 fL Normal 9.5-13.5 [facility] Comment on above: Performed By: #### C BC #### [facility] [address] [place] [address] Dr. Lupe Evangelista PLT 341 103/ul Normal 150-450 [facility] Comment on above: Performed By: #### C BC #### [facility] [address] [place] [address] Dr. Lupe Evangelista RBC 4.95 106/ul Normal 4.20-5.40 [facility] Comment on above: Performed By: #### C BC #### [facility] [address] [place] [address] Dr. Lupe Evangelista WBC 8.2 103/ul Normal 4.0-11.0 [facility] Comment on above: Performed By: #### C BC #### [facility] [address] [place] [address] Dr. Lupe Evangelista FREE THYROXINE INDEX T7on FTI 1.98 Normal 1.30-4.50 [facility] Comment on above: Performed By: #### C BC #### [facility] [address] [place] [address] Dr. Lupe Evangelista T3U 31.0 % Normal 30.0-39.0 [facility] Comment on above: Performed By: #### C BC #### [facility] [address] [place] [address] Dr. Lupe Evangelista T4 [Mass/Vol] 6.40 ug/dL Normal 4.80-13.90 [facility] Comment on above: Performed By: #### C BC #### [facility] [address] [place] [address] Dr. Lupe Evangelista GLYCOHEMOGLOBIN A1Con 2021 ADA RECOMMENDATION SEE BELOW Normal [facility] Comment on above: Result Comment: ADA RECOMMENDED LIMIT 4.0 - 6.0 ADA THERAPEUTIC TARGET < 7.0 ACTION SUGGESTED > 7.0 Performed By: #### C BC #### [facility] [address] [place], [place] [id number] Dr. Lupe Evangelista Glucose [Mass/Vol] 128 mg/dL Normal [facility] Comment on above: Performed By: #### C BC #### [facility] [address] [address] [address] Lupe Evangelista HbA1c (Bld) [Mass fraction] 6.1 % Normal 4.5-6.2 [facility] Comment on above: Performed By: #### C BC #### [facility] [address] [address] [address] Lupe Evangelista IRONon 02-07-2022 Iron [Mass/Vol] 44.0 ug/dL Critically low 50.0-170.0 [facility] Comment on above: Performed By: #### I DINO JACOBO #### [facility] [address] [place] [address] Dr. Lupe Evangelista LIPID PROFILEon 02-07-2022 CHOL-HDL RATIO NORM SEE BELOW Normal [facility] Comment on above: Result Comment: 3.3 - 4.4 LOW RISK 4.4 - 7.1 AVERAGE RISK 7.1 - 11.0 MODERATE RISK >11.0 HIGH RISK Performed By: #### C BC #### [facility] [address] [place] [address] Dr. Lupe Evangelista Cholesterol [Mass/Vol] 217 mg/dL Critically high <=200 [facility] Comment on above: Performed By: #### C BC #### [facility] [address] [place] [address] Dr. Lupe Evangelista Cholesterol in HDL [Mass/Vol] 60 mg/dL Normal 40-60 [facility] Comment on above: Performed By: #### C BC #### [facility] [address] [address] [address] Lupe Evangelista Cholesterol in LDL [Mass/Vol] 136.0 mg/dL Normal [facility] Comment on above: Performed By: #### C BC #### [facility] [address] [place] [address] Dr. Lupe Evangelista Cholesterol.total/Cho lesterol in HDL [Mass ratio] 3.6 {ratio} Normal [facility] Comment on above: Performed By: #### C BC #### [facility] [address] [address] [address] Lupe Evangelista HDL NORMAL > or = 60 mg/dl - LO W CARDIOVASCULAR RISK <40 mg/dl - HIGH CARDIOVASCULAR RISK Normal [facility] Comment on above: Performed By: #### C BC #### [facility] [address] [place] [address] Dr. Lupe Evangelista LDL CALC NORMAL SEE BELOW Normal [facility] Comment on above: Result Comment: <100 mg/dl OPTIMAL 100 - 129 mg/dl NEAR OR ABOVE OPTIMAL 130 - 159 mg/dl BORDERLINE HIGH 160 - 189 mg/dl HIGH >190 mg/dl VERY HIGH Performed By: #### C BC #### [facility] [address] [place] [address] Dr. Lupe Evangelista Triglyceride [Mass/Vol] 105 mg/dL Normal <=150 [facility] Comment on above: Performed By: #### C BC #### [facility] [address] [place] [address] Dr. Lupe Evangelista VLDL CALC 21.0 mg/dL Normal [facility] Comment on above: Performed By: #### C BC #### [facility] [address] [place] [address] Dr. Lupe Evangelista PROF 14(COMP METB)on 022 Albumin [Mass/Vol] 3.7 g/dL Normal 3.4-5.0 [facility] Comment on above: Performed By: #### C MP, LIPID, TSH, T7 #### [facility] [address] [place] [address] Dr. Lupe Evangelista Albumin/Globulin [Mass ratio] 1.0 {ratio} Normal [facility] Comment on above: Performed By: #### C MP, LIPID, TSH, T7 #### [facility] [address] [place] [address] Dr. Lupe Evangelista ALP [Catalytic activity/Vol] 86 U/L Normal 46-116 [facility] Comment on above: Performed By: #### C MP, LIPID, TSH, T7 #### [facility] [address] [address] [address] Lupe Evangelista ALT [Catalytic activity/Vol] 16 U/L Normal 14-59 [facility] Comment on above: Performed By: #### C MP, LIPID, TSH, T7 #### [facility] [address] [address] [address] Lupe Evangelista Anion gap [Moles/Vol] 7.0 mmol/L Normal [facility] Comment on above: Performed By: #### C MP, LIPID, TSH, T7 #### [facility] [address] [address] [address] Lupe Evangelista AST [Catalytic activity/Vol] 14 U/L Critically low 15-37 [facility] Comment on above: Performed By: #### C MP, LIPID, TSH, T7 #### [facility] [address] [address] [address] Lupe Evangelista Bilirubin [Mass/Vol] 0.4 mg/dL Normal 0.2-1.0 [facility] Comment on above: Performed By: #### C MP, LIPID, TSH, T7 #### [facility] [address] [address] [address] Lupe Evangelista Calcium [Mass/Vol] 8.9 mg/dL Normal 8.5-10.1 [facility] Comment on above: Performed By: #### C MP, LIPID, TSH, T7 #### [facility] [address] [address] [address] Lupe Evangelista Chloride [Moles/Vol] 102 mmol/L Normal 98-107 [facility] Comment on above: Performed By: #### C MP, LIPID, TSH, T7 #### [facility] [address] [address] [address] Lupe Evangelista CO2 [Moles/Vol] 34.3 mmol/L Critically high 21.0-32.0 [facility] Comment on above: Performed By: #### C MP, LIPID, TSH, T7 #### [facility] [address] [address] [address] Lupe Evangelista Creatinine [Mass/Vol] 0.73 mg/dL Normal 0.55-1.02 [facility] Comment on above: Performed By: #### C MP, LIPID, TSH, T7 #### [facility] [address] [place] [address] Dr. Lupe Evangelista EGFR-AF BELGIAN >60 Normal >=60 [facility] Comment on above: Performed By: #### C MP, LIPID, TSH, T7 #### [facility] [address] [place] [address] Dr. Lupe Evangelista EGFR-NON AF BELGIAN >60 Normal >=60 [facility] Comment on above: Performed By: #### C MP, LIPID, TSH, T7 #### [facility] [address] [place] [address] Dr. Lupe Evangelista Globulin (S) [Mass/Vol] 3.8 g/dL Normal [facility] Comment on above: Performed By: #### C MP, LIPID, TSH, T7 #### [facility] [address] [place] [address] Dr. Lupe Evangelista Glucose [Mass/Vol] 111 mg/dL Critically high 74-106 [facility] Comment on above: Performed By: #### C MP, LIPID, TSH, T7 #### [facility] [address] [place] [address] Dr. Lupe Evangelista Potassium [Moles/Vol] 4.3 mmol/L Normal 3.5-5.1 [facility] Comment on above: Performed By: #### C MP, LIPID, TSH, T7 #### [facility] [address] [place] [address] Dr. Lupe Evangelista Protein [Mass/Vol] 7.5 g/dL Normal 6.4-8.2 [facility] Comment on above: Performed By: #### C MP, LIPID, TSH, T7 #### [facility] [address] [place] [address] Dr. Lupe Evangelista Sodium [Moles/Vol] 139 mmol/L Normal 136-145 [facility] Comment on above: Performed By: #### C MP, LIPID, TSH, T7 #### [facility] [address] [place] [address] Dr. Lupe Evangelista Urea nitrogen [Mass/Vol] 11.0 mg/dL Normal 7.0-18.0 [facility] Comment on above: Performed By: #### C MP, LIPID, TSH, T7 #### [facility] [address] [address] [address] Lupe Evangelista Urea nitrogen/Creatinine [Mass ratio] 15.1 mg/mg Normal [facility] Comment on above: Performed By: #### C MP, LIPID, TSH, T7 #### [facility] [address] [place] [address] Dr. Lupe Evangelista TSHon 02-07-2022 TSH 2.224 uIU/mL Normal 0.358-3.740 [facility] Comment on above: Performed By: #### C BC #### [facility] [address] [place] [address] Dr. Lupe Evangelista VITAMIN D 25 OHon 02-07-2022 VIT D 25-OH 17.8 ng/mL Normal [facility] Comment on above: Performed By: #### I DONNELL VITAD #### [facility] [address] [place] [address] Dr. Lupe Evangelista VIT D RANGES SEE BELOW Normal [facility] Comment on above: Result Comment: <20 ng/mL Vit D deficient 20 - <30 ng/mL Vit D insufficient 30 - 100 ng/mL Vit D sufficient >100 ng/mL Potential Toxicity Performed By: #### I DONNELL VITAD #### [facility] [address] [place] [address] Dr. Lupe Evangelista XR CHEST 2 Von [...] ARIANNE BRAGA Date: 2022-02-07 17:56 Normal [facility] CBC AUTO DIFFon 12-01-2021 BASO # 0.1 103/ul Normal 0.0-0.1 [facility] Comment on above: Performed By: #### C BC #### [facility] [address] [address] [address] Lupe Evangelista Basophils/100 WBC (Bld) 0.8 % Normal 0.2-2.0 [facility] Comment on above: Performed By: #### C BC #### [facility] [address] [place] [address] Dr. Lupe Evangelista EO # 0.4 103/ul Normal 0.0-0.7 [facility] Comment on above: Performed By: #### C BC #### [facility] [address] [address] [address] Lupe Evangelista Eosinophils/100 WBC (Bld) 5.4 % Normal 0.9-7.0 [facility] Comment on above: Performed By: #### C BC #### [facility] [address] [address] [address] Lupe Evangelista Erythrocyte distribution width (RBC) [Ratio] 16.3 % Critically high 11.0-15.0 [facility] Comment on above: Performed By: #### C BC #### [facility] [address] [place] [address] Dr. Lupe Evangelista Hematocrit (Bld) [Volume fraction] 36.0 % Normal 36.0-48.0 [facility] Comment on above: Performed By: #### C BC #### [facility] [address] [place] [address] Dr. Lupe Evangelista Hemoglobin (Bld) [Mass/Vol] 10.4 g/dL Critically low 12.0-16.0 [facility] Comment on above: Performed By: #### C BC #### [facility] [address] [place] [address] Dr. Lupe Evangelista IG # 0.04 10e3/ul Critically high 0.00-0.03 [facility] Comment on above: Performed By: #### C BC #### [facility] [address] [place] [address] Dr. Lupe Evangelista IG % 0.6 % Critically high 0.0-0.5 [facility] Comment on above: Performed By: #### C BC #### [facility] [address] [place] [address] Dr. Lupe Evangelista LYMPH # 1.9 103/ul Normal 1.2-3.8 [facility] Comment on above: Performed By: #### C BC #### [facility] [address] [place] [address] Dr. Lupe Evangelista Lymphocytes/100 WBC (Bld) 29.1 % Normal 20.5-60.0 [facility] Comment on above: Performed By: #### C BC #### [facility] [address] [place] [address] Dr. Lupe Evangelista MANUAL DIFF REQ NO Normal [facility] Comment on above: Performed By: #### C BC #### [facility] [address] [place] [address] Dr. Lupe Evangelista MCH (RBC) [Entitic mass] 24.9 pg Critically low 26.7-34.0 [facility] Comment on above: Performed By: #### C BC #### [facility] [address] [place] [address] Dr. Lupe Evangelista MCHC (RBC) [Mass/Vol] 28.9 g/dL Critically low 29.9-35.2 [facility] Comment on above: Performed By: #### C BC #### [facility] [address] [place] [address] Dr. Lupe Evangelista MCV (RBC) [Entitic vol] 86.1 fL Normal 81.0-99.0 [facility] Comment on above: Performed By: #### C BC #### [facility] [address] [place] [address] Dr. Lupe Evangelista MONO # 0.7 103/ul Normal 0.3-0.8 [facility] Comment on above: Performed By: #### C BC #### [facility] [address] [address] [address] Lupe Evangelista Monocytes/100 WBC (Bld) 10.7 % Normal 1.7-12.0 [facility] Comment on above: Performed By: #### C BC #### [facility] [address] [place] [address] Dr. Lupe Evangelista NEUT # 3.4 103/ul Normal 1.4-6.5 [facility] Comment on above: Performed By: #### C BC #### [facility] [address] [place] [address] Dr. Lupe Evangelista Neutrophils/100 WBC (Bld) 53.4 % Normal 43.0-75.0 [facility] Comment on above: Performed By: #### C BC #### [facility] [address] [place] [address] Dr. Lupe Evangelista Platelet mean volume (Bld) [Entitic vol] 10.6 fL Normal 9.5-13.5 [facility] Comment on above: Performed By: #### C BC #### [facility] [address] [place] [address] Dr. Lupe Evangelista PLT 320 103/ul Normal 150-450 [facility] Comment on above: Performed By: #### C BC #### [facility] [address] [place] [address] Dr. Lupe Evangelista RBC 4.18 106/ul Critically low 4.20-5.40 [facility] Comment on above: Performed By: #### C BC #### [facility] [address] [place] [address] Dr. Lupe Evangelista WBC 6.4 103/ul Normal 4.0-11.0 [facility] Comment on above: Performed By: #### C BC #### [facility] [address] [place] [address] Dr. Lupe Evangelista CRPon 12-01-2021 CRP 1.6 mg/dL Critically high <=1.0 [facility] Comment on above: Performed By: #### C RP #### [facility] [address] [place] [address] Dr. Lupe Evangelista CBC AUTO DIFFon 11-29-2021 BASO # 0.1 103/ul Normal 0.0-0.1 [facility] Comment on above: Performed By: #### C BC #### [facility] [address] [place] [address] Dr. Lupe Evangelista Basophils/100 WBC (Bld) 0.6 % Normal 0.2-2.0 [facility] Comment on above: Performed By: #### C BC #### [facility] [address] [place] [address] Dr. Lupe Evangelista EO # 0.4 103/ul Normal 0.0-0.7 [facility] Comment on above: Performed By: #### C BC #### [facility] [address] [place] [address] Dr. Lupe Evangelista Eosinophils/100 WBC (Bld) 5.4 % Normal 0.9-7.0 [facility] Comment on above: Performed By: #### C BC #### [facility] [address] [place] [address] Dr. Lupe Evangelista Erythrocyte distribution width (RBC) [Ratio] 16.5 % Critically high 11.0-15.0 [facility] Comment on above: Performed By: #### C BC #### [facility] [address] [place] [address] Dr. Lupe Evangelista Hematocrit (Bld) [Volume fraction] 36.1 % Normal 36.0-48.0 [facility] Comment on above: Performed By: #### C BC #### [facility] [address] [place] [address] Dr. Lupe Evangelista Hemoglobin (Bld) [Mass/Vol] 10.6 g/dL Critically low 12.0-16.0 [facility] Comment on above: Performed By: #### C BC #### [facility] [address] [place] [address] Dr. Lupe Evangelista IG # 0.03 10e3/ul Normal 0.00-0.03 [facility] Comment on above: Performed By: #### C BC #### [facility] [address] [place] [address] Dr. Lupe Evangelista IG % 0.4 % Normal 0.0-0.5 [facility] Comment on above: Performed By: #### C BC #### [facility] [address] [place] [address] Dr. Lupe Evangelista LYMPH # 2.3 103/ul Normal 1.2-3.8 [facility] Comment on above: Performed By: #### C BC #### [facility] [address] [place] [address] Dr. Lupe Evangelista Lymphocytes/100 WBC (Bld) 29.9 % Normal 20.5-60.0 [facility] Comment on above: Performed By: #### C BC #### [facility] [address] [place] [address] Dr. Lupe Evangelista MANUAL DIFF REQ NO Normal [facility] Comment on above: Performed By: #### C BC #### [facility] [address] [place] [address] Dr. Lupe Evangelista MCH (RBC) [Entitic mass] 25.4 pg Critically low 26.7-34.0 [facility] Comment on above: Performed By: #### C BC #### [facility] [address] [place] [address] Dr. Lupe Evangelista MCHC (RBC) [Mass/Vol] 29.4 g/dL Critically low 29.9-35.2 [facility] Comment on above: Performed By: #### C BC #### [facility] [address] [place] [address] Dr. Lupe Evangelista MCV (RBC) [Entitic vol] 86.4 fL Normal 81.0-99.0 [facility] Comment on above: Performed By: #### C BC #### [facility] [address] [place] [address] Dr. Lupe Evangelista MONO # 0.9 103/ul Critically high 0.3-0.8 [facility] Comment on above: Performed By: #### C BC #### [facility] [address] [place] [address] Dr. Lupe Evangelista Monocytes/100 WBC (Bld) 10.9 % Normal 1.7-12.0 [facility] Comment on above: Performed By: #### C BC #### [facility] [address] [place] [address] Dr. Lupe Evangelista NEUT # 4.1 103/ul Normal 1.4-6.5 [facility] Comment on above: Performed By: #### C BC #### [facility] [address] [place] [address] Dr. Lupe Evangelista Neutrophils/100 WBC (Bld) 52.8 % Normal 43.0-75.0 [facility] Comment on above: Performed By: #### C BC #### [facility] [address] [place] [address] Dr. Lupe Evangelista Platelet mean volume (Bld) [Entitic vol] 11.2 fL Normal 9.5-13.5 [facility] Comment on above: Performed By: #### C BC #### [facility] [address] [place] [address] Dr. Lupe Evangelista PLT 351 103/ul Normal 150-450 [facility] Comment on above: Performed By: #### C BC #### [facility] [address] [place] [address] Dr. Lupe Evangelista RBC 4.18 106/ul Critically low 4.20-5.40 [facility] Comment on above: Performed By: #### C BC #### [facility] [address] [place] [address] Dr. Lupe Evangelista WBC 7.8 103/ul Normal 4.0-11.0 [facility] Comment on above: Performed By: #### C BC #### [facility] [address] [place] [address] Dr. Lupe Evangelista CRPon 11-29-2021 CRP 1.7 mg/dL Critically high <=1.0 [facility] Comment on above: Performed By: #### C RP, CMP #### [facility] [address] [place] [address] Dr. Lupe Evangelista CULTURE BLOODon 11-29-2021 Microscopic examination of blood, culture Culture Observations: NO GROWTH AT 5 DAYS. Normal [facility] Comment on above: Performed By: #### C BC #### [facility] [address] [place] [address] Dr. Lupe Evangelista PROF 14(COMP METB)on 022 Albumin [Mass/Vol] 3.5 g/dL Normal 3.4-5.0 [facility] Comment on above: Performed By: #### C RP, CMP #### [facility] [address] [place] [address] Dr. Lupe Evangelista Albumin/Globulin [Mass ratio] 0.9 {ratio} Normal [facility] Comment on above: Performed By: #### C RP, CMP #### [facility] [address] [place] [address] Dr. Lupe Evangelista ALP [Catalytic activity/Vol] 105 U/L Normal 46-116 [facility] Comment on above: Performed By: #### C RP, CMP #### [facility] [address] [place] [address] Dr. Lupe Evangelista ALT [Catalytic activity/Vol] 15 U/L Normal 14-59 [facility] Comment on above: Performed By: #### C RP, CMP #### [facility] [address] [place] [address] Dr. Lupe Evangelista Anion gap [Moles/Vol] 7.3 mmol/L Normal [facility] Comment on above: Performed By: #### C RP, CMP #### [facility] [address] [place] [address] Dr. Lupe Evangelista AST [Catalytic activity/Vol] 21 U/L Normal 15-37 [facility] Comment on above: Performed By: #### C RP, CMP #### [facility] [address] [place] [address] Dr. Lupe Evangelista Bilirubin [Mass/Vol] 0.4 mg/dL Normal 0.2-1.0 [facility] Comment on above: Performed By: #### C RP, CMP #### [facility] [address] [place] [address] Dr. Lupe Evangelista Calcium [Mass/Vol] 8.5 mg/dL Normal 8.5-10.1 [facility] Comment on above: Performed By: #### C RP, CMP #### [facility] [address] [place] [address] Dr. Lupe Evangelista Chloride [Moles/Vol] 102 mmol/L Normal 98-107 [facility] Comment on above: Performed By: #### C RP, CMP #### [facility] [address] [place] [address] Dr. Lupe Evangelista CO2 [Moles/Vol] 31.9 mmol/L Normal 21.0-32.0 [facility] Comment on above: Performed By: #### C RP, CMP #### [facility] [address] [place] [address] Dr. Lupe Evangelista Creatinine [Mass/Vol] 0.76 mg/dL Normal 0.55-1.02 [facility] Comment on above: Performed By: #### C RP, CMP #### [facility] [address] [place] [address] Dr. Lupe Evangelista EGFR-AF BELGIAN >60 Normal >=60 [facility] Comment on above: Performed By: #### C RP, CMP #### [facility] [address] [place] [address] Dr. Lupe Evangelista EGFR-NON AF BELGIAN >60 Normal >=60 [facility] Comment on above: Performed By: #### C RP, CMP #### [facility] [address] [place] [address] Dr. Lupe Evangelista Globulin (S) [Mass/Vol] 3.9 g/dL Normal [facility] Comment on above: Performed By: #### C RP, CMP #### [facility] [address] [place] [address] Dr. Lupe Evangelista Glucose [Mass/Vol] 92 mg/dL Normal 74-106 [facility] Comment on above: Performed By: #### C RP, CMP #### [facility] [address] [address] [address] Lupe Evangelista Potassium [Moles/Vol] 4.2 mmol/L Normal 3.5-5.1 [facility] Comment on above: Performed By: #### C RP, CMP #### [facility] [address] [place] [address] Dr. Lupe Evangelista Protein [Mass/Vol] 7.4 g/dL Normal 6.4-8.2 [facility] Comment on above: Performed By: #### C RP, CMP #### [facility] [address] [place] [address] Dr. Lupe Evangelista Sodium [Moles/Vol] 137 mmol/L Normal 136-145 [facility] Comment on above: Performed By: #### C RP, CMP #### [facility] [address] [place] [address] Dr. Lupe Evangelista Urea nitrogen [Mass/Vol] 8.0 mg/dL Normal 7.0-18.0 [facility] Comment on above: Performed By: #### C RP, CMP #### [facility] [address] [place] [address] Dr. Lupe Evangelista Urea nitrogen/Creatinine [Mass ratio] 10.5 mg/mg Normal [facility] Comment on above: Performed By: #### C RP, CMP #### [facility] [address] [place] [address] Dr. Lupe Evangelista SED RATE [facility] 2021 SED RATE 27 mm/hr Normal <=30 [facility] Comment on above: Performed By: #### S EDR #### [facility] [address] [place] [address] Dr. Lupe Evangelista XR KNEE RT 4V [...] by: HUNTER LAWRENCE Date: 2021-11-15 21:55 Normal [facility] Social History Date Type Detail Facility Start: 07-31-2023 Tobacco smoking status Never s moked tobacco (finding) [facility] Tobacco smoking status Never [facility] Sex Assigned At Female [facility] Vital Signs Date Time Vital Sign Value Performing Clinician [place] 07-31-2023 14:30-0400 Blood Pressure Location [employer] [facility] 07-31-2023 14:30-0400 Diastolic blood pressure 62 mm[Hg] [employer] [facility] 07-31-2023 14:30-0400 Heart rate 68 /min [employer] [facility] 07-31-2023 14:30-0400 Respiratory rate 16 /min [employer] [facility] 07-31-2023 14:30-0400 Systolic blood pressure 120 mm[Hg] [employer] [facility] Functional Status Date Assessment Result Facility 07-31-2023 Functional Status N/A [facility] Clinical Note 07-31-2023 Note Date & Type Note Facility 07-31-2023 Note Chief Complaint consultation for skin lesion HPI Staff 73 year old female presents on consultation from Dr. Muller right ear skin lesion. Reports spouse noted lesion to ear approximately one month ago. Spouse verbalized this is changing but patient is unsure what has changed. Denies soreness, itching or drainage. 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 Review of Systems PHQ Score Initial Depression Screen Score: 0 SCORE ROS - Provider Constitutional: no fever, no sweats, no weight loss. Eyes: no glasses, no blurred vision, no visual loss. ENMT: no dentures, no hoarseness, no swallowing difficulties, no hearing loss, no ear infection(s), no nose bleeds. Cardiovascular: normal blood pressure, no chest pain, regular heartbeat, no heart murmur. Respiratory: no shortness of breath, no cough, no asthma, no wheezing. Gastrointestinal: no nausea, no vomiting, no diarrhea, no constipation, no blood in stool, no change in bowel habits, no abdominal pain, no hepatitis. Genitourinary: no kidney stones, no urine infection, no dysuria. Musculoskeletal: no pain, no weakness. Skin: yes changing moles, no rash, no skin lumps. Neurologic: no seizures, no epilepsy, no headache. Psychiatric: no emotional or psychiatric problem. Heme/Lymph: no bleeding problems, no anemia, no blood clots, no transfusions. Allergy/Immunologic: no swollen lymph nodes/glands, no IV drug abuse. Other: Additional ROS info: Except as noted in the above Review of Systems and in the History of Present Illness, all other systems have been reviewed and are negative or noncontributory. Physical Exam Vitals & Measurements HR: 68(Peripheral) RR: 16 BP: 120/62 HT: 64 in HT: 162.5 cm WT: 65.2 kg WT: 143.44 lb BMI: 24.69 HEENT: normal conjunctiva, sclera clear, no scleral icterus, EOM intact, PERRLA, oral mucosa moist without lesions. Neck: trachea midline, no mass, symmetric, no thyromegaly or nodules, no adenopathy Respiratory: lungs CTA, respirations non labored. Cardiovascular: regular rate and rhythm, no murmur, no pedal edema or varicosities. Musculoskeletal: normal gait, digits and nails without infection, nodes, cyanosis, clubbing. Skin: no rashes, no lesions, no ulcers, right ear with 1 cm oval raised, nonpigmented lesion with central scab/keratosis; no bleeding Psychiatric/Neuro: oriented to time, place, person, judgement normal, affect appropriate for age, insight intact, no focal deficits. Tests: , review of old records completed , Discussed surgical options, risks, and possible complications with patient. Assessment/Plan 1. 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 Medications albuterol 0.083% Inh Marlene 3 mL, 2.5 mg= 3 mL, NEB, q6hr, PRN Breo Ellipta 200 mcg-25 mcg/inh inhalation powder, 1 puff(s), Inhalation, Daily colchicine 0.6 mg Tab, 0.6 mg= 1 tab(s), Oral, Daily lansoprazole 15 mg Dis Tab, 15 mg= 1 tab(s), Oral, Daily oxyCODONE 5 mg Tab, 5 mg= 1 tab(s), Oral, Daily, PRN Vitamin D2 2000 intl units oral capsule, 50 mcg= 1 cap(s), Oral, Daily Allergies Darvon (SOB - Shortness of breath) Vicodin (SOB - Shortness of breath) aspirin (SOB - Shortness of breath) codeine (SOB - Shortness of breath) morphine (SOB - Shortness of breath) Social History Alcohol - Denies Alcohol Use, 07/31/2023 Substance Abuse - Denies Substance Abuse, 07/31/2023 Tobacco - Denies Tobacco Use, 07/31/2023 Never (less than 100 in lifetime) Tobacco Use:. Never Smokeless Tobacco Use:., 07/31/2023 Family History Dementia: Father. Heart disease: Father. Primary malignant neoplasm of female breast: Mother. Immunizations Vaccine Date Status Comments SARS-CoV-2 (COVID-19) [id number] 12/07/2021 Recorded SARSCoV2 mRNA(nrkrceyxv-cyiu-dhfsoa) vac 07/14/2021 Recorded SARS-CoV-2 (COVID-19) mRNA BNT-162b2 vax 12/27/2020 Recorded SARS-CoV-2 (COVID-19) mRNA BNT-162b2 vax 05/18/2020 Recorded 2023-07-19: [id number] SARS-CoV-2 (COVID-19) mRNA BNT-162b2 vax 04/27/2020 Recorded 2023-07-19: [id number] [facility] Comment on above: Result Comment: Elec tronically Signed By: MELL MONGE, Galile[employer] Roberst\Date and Time Signed: 07/31/23 15:12 EDT Evaluation + Plan note Note Date & Type Note Facility Evaluation + Plan note No data available for this section [facility] Discharge instructions Note Date & Type Note Facility Hospital Discharge instructions No data available for this section [facility] Progress note Note Date & Type Note Facility Progress note No data available for this section [facility] Summary Purpose Family History No Family History Records Found No data available for this section No Family History Records Found Advance Directives No Advanced Directives Records FoundNo Advanced Directives Records Found Additional Source Comments INFORMATION SOURCE (unrecogn ized section and content) DATE CREATED AUTHOR 05/19/2022 [facility] DATE CREATED AUTHOR AUTHOR'S ORGANIZ ATION 08/02/2023 [facility] Patient Care team informatio n (unrecognized section and content) Personnel Name: Velma Muller MD Address: Address: [address] [place] [address] FOR RECORDS PERTAINING TO PATIENTS WHO ARE [...] BE BASED ON THE PRIMARY CLINICAL RECORDS. [facility]. provides no warranty or guarantee of the accuracy or completeness of information in this document.
[2023-09-18 15:39] VITALS: BP 127/72; PULSE 85
[2023-09-18] MEDS: BUPIVACAINE HCL 0.5% PF 50 MG/10 ML VIAL INJ (15:42)
[2023-09-18 15:44] VITALS: O2SAT 96
[2023-09-18] MEDS: BACITRACIN OINTMENT 28.4 GM TUBE 1 APPLIC TOPICAL (15:53)
[2023-09-18 15:54] VITALS: PULSE 69; O2SAT 94
[2023-09-18 15:56] VITALS: BP 154/93
== END 2023-09-18 16:01 | disposition home or self-care (01) ==
PROVIDERS: PCP Family Medicine; Visit Provider Surgery
PROC: (CPT 11441; principal; 2023-09-18 13:20)
DX: L83 Acanthosis nigricans (principal); L57.0 Actinic keratosis; R52 Pain, unspecified; I10 Essential (primary) hypertension; J44.9 Chronic obstructive pulmonary disease, unspecified; K21.9 Gastro-esophageal reflux disease without esophagitis; Z90.49 Acquired absence of other specified parts of digestive tract; L08.9 Local infection of the skin and subcutaneous tissue, unspecified
CPT/HCPCS: 11441; 88305; J0665

== ENCOUNTER 2024-02-12 11:05 | Outpatient (OUT) | payer MEDICARE, OTHER, SELFPAY ==
--- OUTSIDE RECORDS SUMMARY | 2024-02-12 11:11 | XMS_ITS | CCD ---
Author Organization [facility] Care Team Providers Care Oxygen Tank Filler Name Role Phone NAYY ., DR CARREON [...] Unavailable HOY ., DR CARREON Consulting Unavailable NEFCYARIANNE Consulting Unavailable HOY ., DR CARREON Admitting Unavailable HOY ., DR CARREON Attending Unavailable HOY ., DR CARREON Primary Care Unavailable HOY ., DR CARREON Consulting Unavailable HOY ., DR CARREON Admitting Unavailable HOY ., DR CARREON Attending Unavailable HOY ., DR CARREON Primary Care Unavailable HOY ., DR CARREON Consulting Unavailable Nayy, Velma Primary Care Physician MD Galileo Cleary Attending Provider Galileo Cleary Attending Unavailable Nill, Galileo Jarrett Admitting Unavailable NILL, Galileo Jarrett Attending Unavailable NILL, Galileo Jarrett Attending Unavailable HoyVelma Referring Unavailable NILLGalileo Attending Unavailable Allergies Allergy Classification Reported Allergen(s) Allergy Type Date of Onset Reaction(s) Facility (3 sources) Aspirin; Translations: [aspirin] Drug Allergy 4 Difficulty Breathing [facility] (3 sources) Codeine; Translations: [codeine] Drug Allergy 8 Difficulty Breathing [facility] (3 sources) Morphine; Translations: [morphine] Drug Allergy 9 Difficulty Breathing [facility] (2 sources) Propoxyphene; Translations: [Darvon] Drug Allergy 3 [facility] (1 source) Sulfamethoxazole / Trimethoprim Drug Allergy 3 [facility] (3 sources) Acetaminophen / HYDROcodone; Translations: [acetaminophen-hydro codone] Drug Allergy Dyspnea (finding) [facility] (2 sources) Aspirin; Translations: [aspirin] Drug Allergy Dyspnea (finding) [facility] (2 sources) Codeine; Translations: [codeine] Drug Allergy Dyspnea (finding) [facility] (2 sources) Morphine; Translations: [morphine] Drug Allergy Dyspnea (finding) [facility] (3 sources) Propoxyphene; Translations: [propoxyphene] Drug Allergy 9 Dyspnea (finding) [facility] (2 sources) Sulfamethoxazole; Translations: [sulfamethoxazole] Drug Allergy 9 Difficulty Breathing [facility] (2 sources) Trimethoprim; Translations: [trimethoprim] Drug Allergy 9 Difficulty Breathing [facility] (1 source) Aspirin Drug Allergy 9 [facility] (1 source) Codeine Drug Allergy 9 [facility] (1 source) Morphine Drug Allergy 9 [facility] (1 source) Propoxyphene Drug Allergy 9 [facility] Medications Current Medications Medication Drug Class(es) Dates Sig (Normalized) Sig (Original) albuterol 0.83 mg/ml inhalation solution (3 sources) beta2-Adrenergic Agonist Start: 07-19-2023 take 2.5 mg by inhalation every six hours albuterol 0.083% Inh Marlene 3 mL 2.5 mg, 3 mL, NEB, q6hr Shortness of breath or wheezing, Refill(s) 0 Start Date: 07/19/23 Status: Ordered Start: 05-21-2018 End: 06-02-2018 Albuterol Sulfate Discontinu ed 2 PUFF Every 6 hours May 21, 2018 1:00am June 02, 2018 11:27am ascorbic acid 500 mg oral tablet (2 sources) Vitamin C Start: 05-26-2018 End: 06-02-2018 take 1 tablet by mouth once daily Ascorbic Acid (Vitamin C) (Vitamin C) 500 mg Tablet Active 500 MG PO Daily 30 June 02, 2018 12:00am Breo Ellipta 200 mcg-25 mcg/inh inhalation powder (2 sources) Start: 07-19-2023 take 1 puff(s) by inhalation once daily Breo Ellipta 200 mcg-25 mcg/inh inhalation powder 1 puff(s), Inhalation, Daily, Refill(s) 0 Start Date: 07/19/23 Status: Ordered cholecalciferol 0.025 mg oral tablet (2 sources) Vitamin D Start: 05-26-2018 End: 06-02-2018 take 2 tablets by mouth once daily Cholecalciferol (Vitamin D3) (Vitamin D3) 1,000 unit Tablet Active 2000 UNIT PO Daily 60 June 02, 2018 12:00am colchicine 0.6 mg oral tablet (4 sources) Start: 07-31-2023 take 1 tablet by mouth once daily colchicine 0.6 mg Tab 0.6 mg = 1 tab(s), Oral, Daily, Refills(s) 0 Start Date: 07/31/23 Status: Ordered Start: 05-26-2018 End: 07-02-2018 take 1 tablet by mouth once daily Colchicine (Colcrys) 0.6 mg Tablet Discontinued 0.6 MG PO DAILY@1530 30 June 02, 2018 12:00am July 02, 2018 12:16am Fluticasone Propion-Salmeterol (1 source) Corticosteroid, beta2-Adrenergic Agonist Start: 06-02-2018 take 1 puff(s) by inhalation twice daily Fluticasone Propion-Salmeterol (Advair Hfa) 115-21 mcg/actuation Hfa Aerosol Inhaler Active 2 PUFF INHALATION Twice daily 30 June 02, 2018 12:00am lansoprazole 15 mg disintegrating oral tablet (3 sources) Proton Pump Inhibitor Start: 07-19-2023 take 1 tablet by mouth once daily lansoprazole 15 mg Dis Tab 15 mg = 1 tab(s), Oral, Daily, Refills(s) 0 Start Date: 07/19/23 Status: Ordered Start: 05-21-2018 End: 06-02-2018 take 1 capsule by mouth once daily Lansoprazole (Prevacid) 15 mg Capsule,Delayed Release(Dr/Ec) Discontinued 15 MG PO Daily May 21, 2018 1:00am June 02, 2018 11:30am oxyCODONE hydrochloride 5 mg oral tablet (4 sources) Opioid Agonist Start: 07-19-2023 take 1 tablet by mouth once daily as needed for pain oxyCODONE 5 mg Tab 5 mg = 1 tab(s), Oral, Daily, PRN as needed for pain, Refills(s) 0 Start Date: 07/19/23 Status: Ordered Start: 06-03-2018 End: 06-08-2018 take 5 mg by mouth every four hours Oxycodone Discontinued 5 MG PO Every 4 hours 30 June 03, 2018 June 08, 2018 12:02am Start: 05-26-2018 End: 06-02-2018 take 5 mg by mouth every eight hours Oxycodone Discontinued 5 MG PO Every 8 hours May 26, 2018 1:00am June 02, 2018 11:30am salmon calcitonin 200 unt/actuat nasal spray (2 sources) Calcitonin Start: 05-26-2018 End: 06-02-2018 Calcitonin ([place]) Active 1 SPRAYS NASAL Daily 2.7 30 June 02, 2018 12:00am Vitamin D2 2000 intl units oral capsule (2 sources) Start: 07-19-2023 take 1 capsule by mouth once daily Vitamin D2 2000 intl units oral capsule 50 mcg = 1 cap(s), Oral, Daily, Refills(s) 0 Start Date: 07/19/23 Status: Ordered Completed/Discontinued Medications Medication Drug Class(es) Dates Sig (Normalized) Sig (Original) acetaminophen 325 mg oral tablet (1 source) Start: 05-26-2018 End: 06-02-2018 take 650 mg by mouth every six hours Acetaminophen Discontinued 650 MG PO Q6H May 26, 2018 1:00am June 02, 2018 11:27am amLODIPine 2.5 mg oral tablet (1 source) Dihydropyridine Calcium Channel Moises Start: 06-02-2018 End: 07-02-2018 take 2.5 mg by mouth once daily Amlodipine Discontinued 2.5 MG PO Daily 30 30 June 02, 2018 12:00am July 02, 2018 12:16am diclofenac sodium 0.01 mg/mg topical gel (1 source) Nonsteroidal Anti-inflammatory Drug Start: 05-26-2018 End: 06-02-2018 apply 2 g topically twice daily Diclofenac Sodium (Voltaren) 1 % Gel Discontinued 2 GM TOPICAL Twice daily 120 May 26, 2018 1:00am June 02, 2018 11:29am Apply to left wrist 30 actuat fluticasone furoate 0.1 mg/actuat / vilanterol 0.025 mg/actuat dry powder inhaler (1 source) Corticosteroid, beta2-Adrenergic Agonist Start: 05-21-2018 End: 06-02-2018 take 1 puff(s) by inhalation once daily Fluticasone Furoate-Vilanterol Discontinued 1 PUFF INHALATION Daily May 21, 2018 1:00am June 02, 2018 11:30am heparin sodium, porcine 5000 unt/ml injectable solution (1 source) Unfractionated Heparin, Anti-coagulant Start: 05-26-2018 End: 06-02-2018 inject 5000 [IU] by subcutaneous injection every twelve hours Heparin (Porcine) Discontinued 5000 UNIT SUBCUT Every 12 hours May 26, 2018 1:00am June 02, 2018 11:27am ibuprofen 800 mg oral tablet (1 source) Nonsteroidal Anti-inflammatory Drug Start: 05-26-2018 End: 06-02-2018 take 800 mg by mouth three times daily Ibuprofen Discontinued 800 MG PO Three times daily 0 May 26, 2018 1:00am June 02, 2018 11:30am omeprazole 20 mg delayed release oral capsule (1 source) Proton Pump Inhibitor Start: 06-02-2018 End: 07-02-2018 take 20 mg by mouth once daily Omeprazole Discontinued 20 MG PO Daily 30 June 02, 2018 12:00am July 02, 2018 12:16am 2 ml ondansetron 2 mg/ml injection (1 source) Serotonin-3 Receptor Antagonist Start: 05-26-2018 End: 06-02-2018 take 4 mg intravenously every six hours Ondansetron Hcl (Pf) Discontinued 4 MG IV-PUSH Q6H May 26, 2018 1:00am June 02, 2018 11:30am vitamin b12 0.5 mg oral tablet (1 source) Vitamin B12 Start: 05-26-2018 End: 06-02-2018 take 1 tablet by mouth once daily Cyanocobalamin (Vitamin B-12) (Vitamin B-12) 500 mcg Tablet Discontinued 500 MCG PO Daily May 26, 2018 1:00am June 02, 2018 11:27am zolpidem tartrate 5 mg oral tablet (1 source) gamma-Aminobutyric Acid-ergic Agonist Start: 06-02-2018 End: 06-12-2018 take 5 mg by mouth once daily at bedtime Zolpidem Discontinued 5 MG PO Daily at bedtime 10 June 02, 2018 12:00am June 12, 2018 12:02am Problems Active Problems Problem Classification Problem Date Documented Date Episodic/Chronic Administrative/socia l admission (1 source) Other reduced mobility; Translations: [Impaired mobility and activities of daily living] 03-06-2023 Episodic Allergic reactions (1 source) Allergic bronchopulmonary aspergillosis; Translations: [ALLERG BRONCHOPULMNRY ASPERGILLOSIS] Onset: 02-10-2022 Chronic Allergic reactions (2 sources) Eczema 07-19-2023 Episodic Asthma (2 sources) Asthma 07-19-2023 Chronic Chronic obstructive pulmonary disease and bronchiectasis (3 sources) Bronchiectasis, uncomplicated; Translations: [Chronic obstructive lung disease] Onset: 02-10-2022 07-19-2023 Chronic Disorders of lipid metabolism (1 source) Hyperlipidemia, unspecified; Translations: [HYPERLIPIDEMIA UNSPECIFIED] Onset: 02-10-2022 Chronic Esophageal disorders (2 sources) Gastroesophageal reflux disease 07-19-2023 Chronic Essential hypertension (2 sources) Hypertensive disorder 07-19-2023 Chronic Gout and other crystal arthropathies (3 sources) Gout; Translations: [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] 07-19-2023 Chronic Neoplasms of unspecified nature or uncertain behavior (3 sources) Neoplasm of uncertain behavior of skin; Translations: [Neoplasm of uncertain behavior of skin] Onset: 07-31-2023 Episodic Nonspecific chest pain (1 source) Pain of sternum; Translations: [Other chest pain] 03-06-2023 Episodic Nutritional deficiencies (4 sources) Vitamin D deficiency, unspecified; Translations: [Vitamin D deficiency] Onset: 02-10-2022 07-19-2023 Chronic Nutritional deficiencies (3 sources) Vitamin B12 deficiency (non anemic); Translations: [Cobalamin deficiency] 07-19-2023 Episodic Osteoporosis (2 sources) Osteoporosis 07-19-2023 Chronic Other connective tissue disease (1 source) Musculoskeletal pain; Translations: [Myalgia, other site] 03-06-2023 Episodic Other ear and sense organ disorders (1 source) Perichondritis; Translations: [Unspecified perichondritis of external ear, unspecified ear] Onset: 09-24-2023 Episodic Other ear and sense organ disorders (1 source) 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 Other fractures (1 source) Fracture of thoracic spine; Translations: [Closed fracture of thoracic spine at T1-T3 level] 03-06-2023 Episodic Other fractures (1 source) Fracture of sternum; Translations: [Unspecified fracture of sternum, initial encounter for closed fracture] 03-06-2023 Episodic Other injuries and conditions due to external causes (1 source) History of fall; Translations: [History of falling] 03-06-2023 Episodic Other lower respiratory disease (1 source) History of chronic obstructive airway disease; Translations: [Personal history of other diseases of the respiratory system] 03-06-2023 Episodic Other non-traumatic joint disorders (2 sources) Pain in wrist; Translations: [Pain in unspecified wrist] 03-06-2023 Episodic Other screening for suspected conditions (not mental [...] ORGN/SYS] Onset: 05-18-2022 Episodic Residual codes; unclassified (3 sources) Insomnia; Translations: [Insomnia, unspecified] 07-19-2023 Episodic Residual codes; unclassified (1 source) Patient encounter status; Translations: [Encounter for prophylactic measures, unspecified] 03-06-2023 Episodic Past or Other Problems Problem Classification [...] Test Name Value Interpretation Reference Range Facility Ambulatory Visit Summaryon 0 09-24-2023 Ambulatory Visit Summary Ambulatory Visit Summary ILANA MOORE :1950 Visit Date:09/24/2023 Ambulatory Visit Instructions Your Care Team Attending Physician - MELL MONGE, Galileo Jarrett Primary Care Physician - Velma Muller MD This Is Your Medications List albuterol (albuterol 0.083% Inh Marlene 3 mL) colchicine (colchicine 0.6 mg Tab) ergocalciferol (Vitamin D2 2000 intl units oral capsule) fluticasone-vilanterol (Breo Ellipta 200 mcg-25 mcg/inh inhalation powder) lansoprazole (lansoprazole 15 mg Dis Tab) oxycodone (oxyCODONE 5 mg Tab) Procedures Performed Excision of lesion of skin (09/18/2023), Appendectomy, Arthroplasty of right hip, Cataract extraction, Cholecystectomy, History of hip surgery, Lumpectomy of left breast, Repair of diaphragmatic hiatal hernia. Medications What How Much When Instructions Unchanged albuterol (albuterol 0.083% Inh Marlene 3 mL) 3 Milliliter Nebulized inhalation (aerosol) Every 6 hours as needed for Shortness of breath or wheezing Unchanged colchicine (colchicine 0.6 mg Tab) 1 Tablets By Mouth Every day Unchanged ergocalciferol (Vitamin D2 2000 intl units oral capsule) 1 Capsules By Mouth Every day Unchanged fluticasone-vilanterol (Breo Ellipta 200 mcg-25 mcg/ inh inhalation powder) 1 Puffs Inhalation Every day Unchanged lansoprazole (lansoprazole 15 mg Dis Tab) 1 Tablets By Mouth Every day Unchanged oxycodone (oxyCODONE 5 mg Tab) 1 Tablets By Mouth Every day as needed for as needed for pain Allergies Darvon (SOB - Shortness of breath) [...] you for choosing us for your care. Chelsea [facility] General Surgery Office/Clini c Noteon 09-24-2023 General Surgery Office/Clinic Note General Surgery Office/Clinic Note Chief Complaint post operative follow up HPI Staff 6 day post operative follow up post excisional biopsy right ear lesion. Denies discomfort, bleeding or drainage. Sutures intact. 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 Review of Systems ROS - Provider Constitutional: no fever, no [...] dysuria. Musculoskeletal: no pain, no weakness. Skin: no changing moles, no rash, no skin lumps. [...] and are negative or noncontributory. Physical Exam skin: incision healing well, no erythema or drainage, no hematoma. Assessment/Plan 1. 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 Follow-up No qualifying data available Problem List/Past Medical History Ongoing Asthma Chondrodermatitis nodularis helicis Chronic obstructive lung disease Eczema Gastroesophageal reflux disease Gout Hypertensive disorder Insomnia Neoplasm of uncertain behavior of skin of ear Osteoporosis Vitamin B12 deficiency (non anemic) Vitamin D deficiency Historical No qualifying data Procedure/Surgical History Excision of lesion of skin (09/18/2023), Appendectomy, Arthroplasty of right hip, Cataract extraction, [...] Immunizations Vaccine Date Status Comments SARS-CoV-2 (COVID-19) [id number] 12/07/2021 Recorded SARSCoV2 mRNA(fkaciyxgk-hvbt-xxsbd s) vac 07/14/2021 Recorded SARS-CoV-2 (COVID-19) mRNA BNT-162b2 vax 12/27/2020 Recorded SARS-CoV-2 (COVID-19) mRNA BNT-162b2 vax 05/18/2020 Recorded 2023-07-19: [id number] SARS-CoV-2 (COVID-19) mRNA BNT-162b2 vax 04/27/2020 Recorded 2023-07-19: TPV70 Normal [facility] Comment on above: Result Comment: Elec tronically Signed By: MELL MONGE, Galileo Agrawalbr\Date and Time Signed: 09/24/23 14:47 EDT Cruz 09-18-2023 L Specimen: [id number] Received: 09/19/23 Status: KISHAN Garnett Num: [id number] Spec Type: Surgical Subm Dr: Galileo Cleary MD FACS Tissues: A Soft Tissue/Surgical Margin-Other than Tumor,Mass,Lip or Angella (RT EAR) Procedures: HE/4, Gross/Micro L4 Age/ Patient Sex Location Account Attending Physician Ilana Moore 73/F [place] [id number] Galileo Cleary MD FACS SPEC NUM: [id number] RECD: 09/19/23 STATUS: INGRIDNicole GARNETT NUM: [id number] MARCO: 09/18/23-[address]: Galileo Cleary MD FACS ENTERED: 09/19/23-[address] [facility] [address]: Con Romero SPEC TYPE: Surgical DEPT: JESS ARIZA ORDERED: HE/4, Gross/Micro L4 ORDERED: HE/4, Gross/Micro L4 Pathological Diagnosis Skin, right ear, excisional biopsy: -Mild chronic ulceration with associated inflamed granulation tissue (moderate acute and chronic inflammation) in the dermis, and moderate reactive acanthosis of the epidermis with associated pseudoepitheliomatous hyperplasia, and overall may also suggest underlying chondrodermatitis nodularis helicis, in addition to the small adjacent foci of mild actinic keratosis also noticed -No evidence of malignancy, or any high-grade or significant squamous atypia Clinical Information Right ear neoplasm of uncertain behavior Gross Description Received in formalin labeled with the patient's name, date of and right ear lesion is a 0.6 x 0.5 x 0.2 cm portion of papular, scaly pale-mittal skin. The specimen is inked blue along its resection margin, bisected and entirely submitted in A1. Specimen: [id number] Received: 09/19/23 Status: KISHAN Tamir Num: [id number] Spec Type: Surgical Subm Dr: Galileo Cleary MD FACS Tissues: A Soft Tissue/Surgical Margin-Other than Tumor,Mass,Lip or Angella (RT EAR) Procedures: HE/Melissa, Gross/Micro L4 Patient: OscarIlana L [id number] (Continued) Specimen: [id number] Received: 09/19/23 (Continued) Signed (signature on file) Cookie Evangelista MD 09/23/23 1129 Specimen: [id number] Received: 09/19/23 Status: KISHAN Coxalisha Num: [id number] Spec Type: Surgical Subm Dr: Galileo Cleary MD FACS Tissues: A Soft Tissue/Surgical Margin-Other than Tumor,Mass,Lip or Angella (RT EAR) Procedures: CLAUDE/Melissa, Gross/Micro L4 Patient: Ilana Moore [id number] (Continued) Specimen: [id number] Received: 09/19/23 (Continued) CPT Codes 72082 Specimen: [id number] Received: 09/19/23 Status: KISHAN Garnett Num: [id number] Spec Type: Surgical Subm Dr: Galileo Cleary MD FACS Tissues: A Soft Tissue/Surgical Margin-Other than Tumor,Mass,Lip or Angella (RT EAR) Procedures: /Melissa, Gross/Micro L4 Patient: Ilana Moore [id number] (Continued) Signed (signature on file) Cookie Evangelista MD 09/23/23 1129 Normal [facility] Consent for Procedure/Surger yon 08-02-2023 Consent for Procedure/Surgery [id number] Normal [facility] Facesheeton 08-01-2023 Facesheet [id number] Chelsea [facility] Ambulatory Visit Summaryon 0 07-31-2023 Ambulatory Visit Summary ILANA MOORE :1950 Visit Date:07/31/2023 Ambulatory Visit Instructions Your Care Team Attending Physician - Galileo CLEARY MD Primary Care Physician - Velma Muller MD Referring Physician - Velma Muller MD This Is Your Medications List Contact prescribing physician if questions or concerns albuterol (albuterol 0.083% Inh Marlene 3 mL) colchicine (colchicine 0.6 mg Tab) ergocalciferol (Vitamin D2 2000 intl units oral capsule) fluticasone-vilanterol (Breo Ellipta 200 mcg-25 mcg/inh inhalation powder) [...] prescribing physician if questions or concerns Unchanged fluticasone-vilanterol (Breo Ellipta 200 mcg-25 mcg/ inh inhalation [...] for choosing us for your care. Normal [facility] MG MAMM SCREEN 3D ALLEN CADon 05-14-2022 MG MAMM SCREEN 3D ALLEN CAD Patient: ILANA MOORE Exam Date: 05/14/2022 : 1950 Gender:F Ordering : DR VELMA MULLER . Admission #: [id number] Family : Order #: [id number] CLICK HERE TO VIEW EXAM RADIOLOGY REPORT [...] liver cancer at age 66. LOCATION: [facility] BREAST COMPOSITION: Scattered areas fibroglandular density. FINDINGS: [...] M.D. on 05/16/2022 at 13:19 Normal [facility] INSULINon 02-08-2022 Insulin 6.6 uIU/mL Normal 2.6-24.9 [facility] Comment on above: Performed By: #### C BC #### [facility] [address] [place] [address] Dr. Lupe Evangelista CBC AUTO DIFFon 02-07-2022 BASO # 0.1 103/ul Normal 0.0-0.1 [facility] Comment on above: Performed By: #### C BC #### [facility] [address] [place] [address] Dr. Lupe Evangelista Basophils/100 WBC (Bld) 0.7 % Normal 0.2-2.0 [facility] Comment on above: Performed By: #### C BC #### [facility] [address] [place] [address] Dr. Lupe Evangelista EO # 0.4 103/ul Normal 0.0-0.7 [facility] Comment on above: Performed By: #### C BC #### [facility] [address] [place] [address] Dr. Lupe Evangelista Eosinophils/100 WBC (Bld) 5.4 % Normal 0.9-7.0 [facility] Comment on above: Performed By: #### C BC #### [facility] [address] [place] [address] Dr. Lupe Evangelista Erythrocyte distribution width (RBC) [Ratio] 15.9 % Critically high 11.0-15.0 [facility] Comment on above: Performed By: #### C BC #### [facility] [address] [place] [address] Dr. Lupe Evangelista Hematocrit (Bld) [Volume fraction] 39.8 % Normal 36.0-48.0 [facility] Comment on above: Performed By: #### C BC #### [facility] [address] [place] [address] Dr. Lupe Evangelista Hemoglobin (Bld) [Mass/Vol] 11.6 g/dL Critically low 12.0-16.0 [facility] Comment on above: Performed By: #### C BC #### [facility] [address] [address] [address] Lupe Evangelista IG # 0.02 10e3/ul Normal 0.00-0.03 [facility] Comment on above: Performed By: #### C BC #### [facility] [address] [address] [address] Lupe Evangelista IG % 0.2 % Normal 0.0-0.5 [facility] Comment on above: Performed By: #### C BC #### [facility] [address] [place] [address] Dr. Lupe Evangelista LYMPH # 2.9 103/ul Normal 1.2-3.8 [facility] Comment on above: Performed By: #### C BC #### [facility] [address] [place] [address] Dr. Lupe Evangelista Lymphocytes/100 WBC (Bld) 35.2 % Normal 20.5-60.0 [facility] Comment on above: Performed By: #### C BC #### [facility] [address] [place] [address] Dr. Lupe Evangelista MANUAL DIFF REQ NO Normal [facility] Comment on above: Performed By: #### C BC #### [facility] [address] [place] [address] Dr. Lupe Evangelista MCH (RBC) [Entitic mass] 23.4 pg Critically low 26.7-34.0 [facility] Comment on above: Performed By: #### C BC #### [facility] [address] [place] [address] Dr. Lupe Evangelista MCHC (RBC) [Mass/Vol] 29.1 g/dL Critically low 29.9-35.2 [facility] Comment on above: Performed By: #### C BC #### [facility] [address] [place] [address] Dr. Lupe Evangelista MCV (RBC) [Entitic vol] 80.4 fL Critically low 81.0-99.0 [facility] Comment on above: Performed By: #### C BC #### [facility] [address] [place] [address] Dr. Lupe Evangelista MONO # 0.8 103/ul Normal 0.3-0.8 [facility] Comment on above: Performed By: #### C BC #### [facility] [address] [place] [address] Dr. Lupe Evangelista Monocytes/100 WBC (Bld) 9.8 % Normal 1.7-12.0 [facility] Comment on above: Performed By: #### C BC #### [facility] [address] [place] [address] Dr. Lupe Evangelista NEUT # 4.0 103/ul Normal 1.4-6.5 [facility] Comment on above: Performed By: #### C BC #### [facility] [address] [place] [address] Dr. Lupe Evangelista Neutrophils/100 WBC (Bld) 48.7 % Normal 43.0-75.0 [facility] Comment on above: Performed By: #### C BC #### [facility] [address] [place] [address] Dr. Lupe Evangelista Platelet mean volume (Bld) [Entitic vol] 11.0 fL Normal 9.5-13.5 [facility] Comment on above: Performed By: #### C BC #### [facility] [address] [place] [address] Dr. Lupe Evangelista PLT 341 103/ul Normal 150-450 [facility] Comment on above: Performed By: #### C BC #### [facility] [address] [place] [address] Dr. Lupe Evangelista RBC 4.95 106/ul Normal 4.20-5.40 [facility] Comment on above: Performed By: #### C BC #### [facility] [address] [place] [address] Dr. Lupe Evangelista WBC 8.2 103/ul Normal 4.0-11.0 [facility] Comment on above: Performed By: #### C BC #### [facility] [address] [place] [address] Dr. Lupe Evangelista FREE THYROXINE INDEX T7on FTI 1.98 Normal 1.30-4.50 [facility] Comment on above: Performed By: #### C BC #### [facility] [address] [address] [address] Lupe Evangelista T3U 31.0 % Normal 30.0-39.0 [facility] Comment on above: Performed By: #### C BC #### [facility] [address] [address] [address] uLpe Evangelista T4 [Mass/Vol] 6.40 ug/dL Normal 4.80-13.90 [facility] Comment on above: Performed By: #### C BC #### [facility] [address] [place] [address] Dr. Lupe Evangelista GLYCOHEMOGLOBIN A1Con 2021 ADA RECOMMENDATION SEE BELOW Normal [facility] Comment on above: Result Comment: ADA RECOMMENDED LIMIT 4.0 - 6.0 ADA THERAPEUTIC TARGET < 7.0 ACTION SUGGESTED > 7.0 Performed By: #### C BC #### [facility] [address] [place] [address] Dr. Lupe Evangelista Glucose [Mass/Vol] 128 mg/dL Normal [facility] Comment on above: Performed By: #### C BC #### [facility] [address] [place] [address] Dr. Lupe Evangelista HbA1c (Bld) [Mass fraction] 6.1 % Normal 4.5-6.2 [facility] Comment on above: Performed By: #### C BC #### [facility] [address] [place] [address] Dr. Lupe Evangelista IRONon 02-07-2022 Iron [Mass/Vol] 44.0 ug/dL Critically low 50.0-170.0 [facility] Comment on above: Performed By: #### I DINO JACOBO #### [facility] [address] [place] [address] Dr. Lupe Evangelista LIPID PROFILEon 02-07-2022 CHOL-HDL RATIO NORM SEE BELOW Normal [facility] Comment on above: Result Comment: 3.3 - 4.4 LOW RISK 4.4 - 7.1 AVERAGE RISK 7.1 - 11.0 MODERATE RISK >11.0 HIGH RISK Performed By: #### C BC #### [facility] [address] [place] [address] Dr. Lupe Evangelista Cholesterol [Mass/Vol] 217 mg/dL Critically high <=200 [facility] Comment on above: Performed By: #### C BC #### [facility] [address] [place] [address] Dr. Lupe Evangelista Cholesterol in HDL [Mass/Vol] 60 mg/dL Normal 40-60 [facility] Comment on above: Performed By: #### C BC #### [facility] [address] [place] [address] Dr. Lupe Evangelista Cholesterol in LDL [Mass/Vol] 136.0 mg/dL Normal [facility] Comment on above: Performed By: #### C BC #### [facility] [address] [place] [address] Dr. Lupe Evangelista Cholesterol.total/C holesterol in HDL [Mass ratio] 3.6 {ratio} Normal [facility] Comment on above: Performed By: #### C BC #### [facility] [address] [place] [address] Dr. Lupe Evangelista HDL NORMAL > or = 60 mg/dl - LO W CARDIOVASCULAR RISK <40 mg/dl - HIGH CARDIOVASCULAR RISK Normal [facility] Comment on above: Performed By: #### C BC #### [facility] [address] [place] [address] Dr. Lupe Evangelista LDL CALC NORMAL SEE BELOW Normal [facility] Comment on above: Result Comment: <100 mg/dl OPTIMAL 100 - 129 mg/dl NEAR OR ABOVE OPTIMAL 130 - 159 mg/dl BORDERLINE HIGH 160 - 189 mg/dl HIGH >190 mg/dl VERY HIGH Performed By: #### C BC #### [facility] [address] [place] [address] Dr. Lupe Evangelista Triglyceride [Mass/Vol] 105 mg/dL Normal <=150 [facility] Comment on above: Performed By: #### C BC #### [facility] [address] [address] [address] Lupe Evangelista VLDL CALC 21.0 mg/dL Normal [facility] Comment on above: Performed By: #### C BC #### [facility] [address] [place] [address] Dr. Lupe Evangelista PROF 14(COMP METB)on 022 Albumin [Mass/Vol] 3.7 g/dL Normal 3.4-5.0 [facility] Comment on above: Performed By: #### C MP, LIPID, TSH, T7 #### [facility] [address] [place] [address] Dr. Lupe Evangelista Albumin/Globulin [Mass ratio] 1.0 {ratio} Normal [facility] Comment on above: Performed By: #### C MP, LIPID, TSH, T7 #### [facility] [address] [place] [address] Dr. Lupe Evangelista ALP [Catalytic activity/Vol] 86 U/L Normal 46-116 [facility] Comment on above: Performed By: #### C MP, LIPID, TSH, T7 #### [facility] [address] [place] [address] Dr. Lupe Evangelista ALT [Catalytic activity/Vol] 16 U/L Normal 14-59 [facility] Comment on above: Performed By: #### C MP, LIPID, TSH, T7 #### [facility] [address] [place] [address] Dr. Lupe Eavngelista Anion gap [Moles/Vol] 7.0 mmol/L Normal [facility] Comment on above: Performed By: #### C MP, LIPID, TSH, T7 #### [facility] [address] [place] [address] Dr. Lupe Evangelista AST [Catalytic activity/Vol] 14 U/L Critically low 15-37 [facility] Comment on above: Performed By: #### C MP, LIPID, TSH, T7 #### [facility] [address] [place] [address] Dr. Lupe Evangelista Bilirubin [Mass/Vol] 0.4 mg/dL Normal 0.2-1.0 [facility] Comment on above: Performed By: #### C MP, LIPID, TSH, T7 #### [facility] [address] [address] [address] Lupe Evangelista Calcium [Mass/Vol] 8.9 mg/dL Normal 8.5-10.1 [facility] Comment on above: Performed By: #### C MP, LIPID, TSH, T7 #### [facility] [address] [place] [address] Dr. Lupe Evangelista Chloride [Moles/Vol] 102 mmol/L Normal 98-107 [facility] Comment on above: Performed By: #### C MP, LIPID, TSH, T7 #### [facility] [address] [place] [address] Dr. Lupe Evangelista CO2 [Moles/Vol] 34.3 mmol/L Critically high 21.0-32.0 [facility] Comment on above: Performed By: #### C MP, LIPID, TSH, T7 #### [facility] [address] [place] [address] Dr. Lupe Evangelista Creatinine [Mass/Vol] 0.73 mg/dL Normal 0.55-1.02 [facility] Comment on above: Performed By: #### C MP, LIPID, TSH, T7 #### [facility] [address] [place] [address] Dr. Lupe Evangelista EGFR-AF CAMEROONIAN >60 Normal >=60 [facility] Comment on above: Performed By: #### C MP, LIPID, TSH, T7 #### [facility] [address] [place] [address] Dr. Lupe Evangelista EGFR-NON AF CAMEROONIAN >60 Normal >=60 [facility] Comment on above: Performed By: #### C MP, LIPID, TSH, T7 #### [facility] [address] [place] [address] Dr. Lupe Evangelista Globulin (S) [Mass/Vol] 3.8 g/dL Normal [facility] Comment on above: Performed By: #### C MP, LIPID, TSH, T7 #### [facility] [address] [place] [address] Dr. Lupe Evangelista Glucose [Mass/Vol] 111 mg/dL Critically high 74-106 T [facility] Comment on above: Performed By: #### C MP, LIPID, TSH, T7 #### [facility] [address] [address] [address] Lupe Evangelista Potassium [Moles/Vol] 4.3 mmol/L Normal 3.5-5.1 [facility] Comment on above: Performed By: #### C MP, LIPID, TSH, T7 #### [facility] [address] [address] [address] Lupe Evangelista Protein [Mass/Vol] 7.5 g/dL Normal 6.4-8.2 [facility] Comment on above: Performed By: #### C MP, LIPID, TSH, T7 #### [facility] [address] [place] [address] Dr. Lupe Evangelista Sodium [Moles/Vol] 139 mmol/L Normal 136-145 [facility] Comment on above: Performed By: #### C MP, LIPID, TSH, T7 #### [facility] [address] [place] [address] Dr. Lupe Evangelista Urea nitrogen [Mass/Vol] 11.0 mg/dL Normal 7.0-18.0 [facility] Comment on above: Performed By: #### C MP, LIPID, TSH, T7 #### [facility] [address] [place] [address] Dr. Lupe Evangelista Urea nitrogen/Creatinine [Mass ratio] 15.1 mg/mg Normal [facility] Comment on above: Performed By: #### C MP, LIPID, TSH, T7 #### [facility] [address] [place] [address] Dr. Lupe Evangelista TSHon 02-07-2022 TSH 2.224 uIU/mL Normal 0.358-3.740 [facility] Comment on above: Performed By: #### C BC #### [facility] [address] [place] [address] Dr. Lupe Evangelista VITAMIN D 25 OHon 02-07-2022 VIT D 25-OH 17.8 ng/mL Normal [facility] Comment on above: Performed By: #### I DONNELL VITAD #### [facility] [address] [address] [address] Lupe Evangelista VIT D RANGES SEE BELOW Normal [facility] Comment on above: Result Comment: <20 ng/mL Vit D deficient 20 - <30 ng/mL Vit D insufficient 30 - 100 ng/mL Vit D sufficient >100 ng/mL Potential Toxicity Performed By: #### I DONNELL VITAD #### [facility] [address] [address] [address] Lupe Evangelista XR CHEST 2 Von [...] ARIANNE BRAGA Date: 2022-02-07 17:56 Normal [facility] CBC AUTO DIFFon 12-01-2021 BASO # 0.1 103/ul Normal 0.0-0.1 [facility] Comment on above: Performed By: #### C BC #### [facility] [address] [place] [address] Dr. Lupe Evangelista Basophils/100 WBC (Bld) 0.8 % Normal 0.2-2.0 [facility] Comment on above: Performed By: #### C BC #### [facility] [address] [place] [address] Dr. Lupe Evangelista EO # 0.4 103/ul Normal 0.0-0.7 [facility] Comment on above: Performed By: #### C BC #### [facility] [address] [place] [address] Dr. Lupe Evangelista Eosinophils/100 WBC (Bld) 5.4 % Normal 0.9-7.0 [facility] Comment on above: Performed By: #### C BC #### [facility] [address] [place] [address] Dr. Lupe Evangelista Erythrocyte distribution width (RBC) [Ratio] 16.3 % Critically high 11.0-15.0 [facility] Comment on above: Performed By: #### C BC #### [facility] [address] [place] [address] Dr. Lupe Evangelista Hematocrit (Bld) [Volume fraction] 36.0 % Normal 36.0-48.0 [facility] Comment on above: Performed By: #### C BC #### [facility] [address] [place] [address] Dr. Lupe Evangelista Hemoglobin (Bld) [Mass/Vol] 10.4 g/dL Critically low 12.0-16.0 [facility] Comment on above: Performed By: #### C BC #### [facility] [address] [place] [address] Dr. Lupe Evangelista IG # 0.04 10e3/ul Critically high 0.00-0.03 [facility] Comment on above: Performed By: #### C BC #### [facility] [address] [place] [address] Dr. Lupe Evangelista IG % 0.6 % Critically high 0.0-0.5 [facility] Comment on above: Performed By: #### C BC #### [facility] [address] [place] [address] Dr. Lupe Evangelista LYMPH # 1.9 103/ul Normal 1.2-3.8 [facility] Comment on above: Performed By: #### C BC #### [facility] [address] [place] [address] Dr. Lupe Evangelista Lymphocytes/100 WBC (Bld) 29.1 % Normal 20.5-60.0 [facility] Comment on above: Performed By: #### C BC #### [facility] [address] [place] [address] Dr. Lupe Evangelista MANUAL DIFF REQ NO Normal [facility] Comment on above: Performed By: #### C BC #### [facility] [address] [place] [address] Dr. Lupe Evangelista MCH (RBC) [Entitic mass] 24.9 pg Critically low 26.7-34.0 [facility] Comment on above: Performed By: #### C BC #### [facility] [address] [place] [address] Dr. Lupe Evangelista MCHC (RBC) [Mass/Vol] 28.9 g/dL Critically low 29.9-35.2 [facility] Comment on above: Performed By: #### C BC #### [facility] [address] [place] [address] Dr. Lupe Evangelista MCV (RBC) [Entitic vol] 86.1 fL Normal 81.0-99.0 [facility] Comment on above: Performed By: #### C BC #### [facility] [address] [place] [address] Dr. Lupe Evangelista MONO # 0.7 103/ul Normal 0.3-0.8 [facility] Comment on above: Performed By: #### C BC #### [facility] [address] [place] [address] Dr. Lupe Evangelista Monocytes/100 WBC (Bld) 10.7 % Normal 1.7-12.0 [facility] Comment on above: Performed By: #### C BC #### [facility] [address] [place] [address] Dr. Lupe Evangelista NEUT # 3.4 103/ul Normal 1.4-6.5 [facility] Comment on above: Performed By: #### C BC #### [facility] [address] [place] [address] Dr. Lupe Evangelista Neutrophils/100 WBC (Bld) 53.4 % Normal 43.0-75.0 [facility] Comment on above: Performed By: #### C BC #### [facility] [address] [place] [address] Dr. Lupe Evangelista Platelet mean volume (Bld) [Entitic vol] 10.6 fL Normal 9.5-13.5 [facility] Comment on above: Performed By: #### C BC #### [facility] [address] [address] [address] Lupe Evangelista PLT 320 103/ul Normal 150-450 [facility] Comment on above: Performed By: #### C BC #### [facility] [address] [place] [address] Dr. Lupe Evangelista RBC 4.18 106/ul Critically low 4.20-5.40 [facility] Comment on above: Performed By: #### C BC #### [facility] [address] [place] [address] Dr. Lupe Evangelista WBC 6.4 103/ul Normal 4.0-11.0 [facility] Comment on above: Performed By: #### C BC #### [facility] [address] [place] [address] Dr. Lupe Evangelista CRPon 12-01-2021 CRP 1.6 mg/dL Critically high <=1.0 [facility] Comment on above: Performed By: #### C RP #### [facility] [address] [place] [address] Dr. Lupe Evangelista CBC AUTO DIFFon 11-29-2021 BASO # 0.1 103/ul Normal 0.0-0.1 [facility] Comment on above: Performed By: #### C BC #### [facility] [address] [place] [address] Dr. Lupe Evangelista Basophils/100 WBC (Bld) 0.6 % Normal 0.2-2.0 [facility] Comment on above: Performed By: #### C BC #### [facility] [address] [place] [address] Dr. Lupe Evangelista EO # 0.4 103/ul Normal 0.0-0.7 [facility] Comment on above: Performed By: #### C BC #### [facility] [address] [place] [address] Dr. Lupe Evangelista Eosinophils/100 WBC (Bld) 5.4 % Normal 0.9-7.0 [facility] Comment on above: Performed By: #### C BC #### [facility] [address] [place] [address] Dr. Lupe Evangelista Erythrocyte distribution width (RBC) [Ratio] 16.5 % Critically high 11.0-15.0 [facility] Comment on above: Performed By: #### C BC #### [facility] [address] [place] [address] Dr. Lupe Evangelista Hematocrit (Bld) [Volume fraction] 36.1 % Normal 36.0-48.0 [facility] Comment on above: Performed By: #### C BC #### [facility] [address] [place] [address] Dr. Lupe Evangelista Hemoglobin (Bld) [Mass/Vol] 10.6 g/dL Critically low 12.0-16.0 [facility] Comment on above: Performed By: #### C BC #### [facility] [address] [place] [address] Dr. Lupe Evangelista IG # 0.03 10e3/ul Normal 0.00-0.03 [facility] Comment on above: Performed By: #### C BC #### [facility] [address] [place] [address] Dr. Lupe Evangelista IG % 0.4 % Normal 0.0-0.5 [facility] Comment on above: Performed By: #### C BC #### [facility] [address] [place] [address] Dr. Lupe Evangelista LYMPH # 2.3 103/ul Normal 1.2-3.8 [facility] Comment on above: Performed By: #### C BC #### [facility] [address] [place] [address] Dr. Lupe Evangelista Lymphocytes/100 WBC (Bld) 29.9 % Normal 20.5-60.0 [facility] Comment on above: Performed By: #### C BC #### [facility] [address] [place] [address] Dr. Lupe Evangelista MANUAL DIFF REQ NO Normal [facility] Comment on above: Performed By: #### C BC #### [facility] [address] [place] [address] Dr. Lupe Evangelista MCH (RBC) [Entitic mass] 25.4 pg Critically low 26.7-34.0 [facility] Comment on above: Performed By: #### C BC #### [facility] [address] [place] [address] Dr. Lupe Evangelista MCHC (RBC) [Mass/Vol] 29.4 g/dL Critically low 29.9-35.2 [facility] Comment on above: Performed By: #### C BC #### [facility] [address] [place] [address] Dr. Lupe Evangelista MCV (RBC) [Entitic vol] 86.4 fL Normal 81.0-99.0 [facility] Comment on above: Performed By: #### C BC #### [facility] [address] [place] [address] Dr. Lupe Evangelista MONO # 0.9 103/ul Critically high 0.3-0.8 [facility] Comment on above: Performed By: #### C BC #### [facility] [address] [place] [address] Dr. Lupe Evangelista Monocytes/100 WBC (Bld) 10.9 % Normal 1.7-12.0 [facility] Comment on above: Performed By: #### C BC #### [facility] [address] [place] [address] Dr. Lupe Evangelista NEUT # 4.1 103/ul Normal 1.4-6.5 [facility] Comment on above: Performed By: #### C BC #### [facility] [address] [place] [address] Dr. Lupe Evangelista Neutrophils/100 WBC (Bld) 52.8 % Normal 43.0-75.0 [facility] Comment on above: Performed By: #### C BC #### [facility] [address] [place] [address] Dr. Lupe Evangelista Platelet mean volume (Bld) [Entitic vol] 11.2 fL Normal 9.5-13.5 [facility] Comment on above: Performed By: #### C BC #### [facility] [address] [place] [address] Dr. Lupe Evangelista PLT 351 103/ul Normal 150-450 [facility] Comment on above: Performed By: #### C BC #### [facility] [address] [address] [address] Lupe Evangelista RBC 4.18 106/ul Critically low 4.20-5.40 [facility] Comment on above: Performed By: #### C BC #### [facility] [address] [place] [address] Dr. Lupe Evangelista WBC 7.8 103/ul Normal 4.0-11.0 [facility] Comment on above: Performed By: #### C BC #### [facility] [address] [place] [address] Dr. Lupe Evangelista CRPon 11-29-2021 CRP 1.7 mg/dL Critically high <=1.0 [facility] Comment on above: Performed By: #### C RP, CMP #### [facility] [address] [place] [address] Dr. Lupe Evangelitsa CULTURE BLOODon 11-29-2021 Microscopic examination of blood, culture Culture Observations: NO GROWTH AT [address] [facility] Comment on above: Performed By: #### C BC #### [facility] [address] [place] [address] Dr. Lupe Evangelista Microscopic examination of blood, culture Culture Observations: NO GROWTH AT [address] [facility] Comment on above: Performed By: #### C BC #### [facility] [address] [place] [address] Dr. Lupe Evangelista PROF 14(COMP METB)on 022 Albumin [Mass/Vol] 3.5 g/dL Normal 3.4-5.0 [facility] Comment on above: Performed By: #### C RP, CMP #### [facility] [address] [place] [address] Dr. Lupe Evangelista Albumin/Globulin [Mass ratio] 0.9 {ratio} Normal [facility] Comment on above: Performed By: #### C RP, CMP #### [facility] [address] [address] [address] Lupe Evangelista ALP [Catalytic activity/Vol] 105 U/L Normal 46-116 [facility] Comment on above: Performed By: #### C RP, CMP #### [facility] [address] [place] [address] Dr. Lupe Evangelista ALT [Catalytic activity/Vol] 15 U/L Normal 14-59 [facility] Comment on above: Performed By: #### C RP, CMP #### [facility] [address] [place] [address] Dr. Lupe Evangelista Anion gap [Moles/Vol] 7.3 mmol/L Normal [facility] Comment on above: Performed By: #### C RP, CMP #### [facility] [address] [place] [address] Dr. Lupe Evangelista AST [Catalytic activity/Vol] 21 U/L Normal 15-37 [facility] Comment on above: Performed By: #### C RP, CMP #### [facility] [address] [place] [address] Dr. Lupe Evangelista Bilirubin [Mass/Vol] 0.4 mg/dL Normal 0.2-1.0 [facility] Comment on above: Performed By: #### C RP, CMP #### [facility] [address] [place] [address] Dr. Lupe Evangelista Calcium [Mass/Vol] 8.5 mg/dL Normal 8.5-10.1 [facility] Comment on above: Performed By: #### C RP, CMP #### [facility] [address] [place] [address] Dr. Lupe Evangelista Chloride [Moles/Vol] 102 mmol/L Normal 98-107 [facility] Comment on above: Performed By: #### C RP, CMP #### [facility] [address] [address] [address] Lupe Evangelista CO2 [Moles/Vol] 31.9 mmol/L Normal 21.0-32.0 [facility] Comment on above: Performed By: #### C RP, CMP #### [facility] [address] [place] [address] Dr. Lupe Evangelista Creatinine [Mass/Vol] 0.76 mg/dL Normal 0.55-1.02 [facility] Comment on above: Performed By: #### C RP, CMP #### [facility] [address] [place] [address] Dr. Lupe Evangelista EGFR-AF CAMEROONIAN >60 Normal >=60 [facility] Comment on above: Performed By: #### C RP, CMP #### [facility] [address] [place] [address] Dr. Lupe Evangelista EGFR-NON AF CAMEROONIAN >60 Normal >=60 [facility] Comment on above: Performed By: #### C RP, CMP #### [facility] [address] [place] [address] Dr. Lupe Evangelista Globulin (S) [Mass/Vol] 3.9 g/dL Normal [facility] Comment on above: Performed By: #### C RP, CMP #### [facility] [address] [place] [address] Dr. Lupe Evangelista Glucose [Mass/Vol] 92 mg/dL Normal 74-106 [facility] Comment on above: Performed By: #### C RP, CMP #### [facility] [address] [place] [address] Dr. Lupe Evangelista Potassium [Moles/Vol] 4.2 mmol/L Normal 3.5-5.1 [facility] Comment on above: Performed By: #### C RP, CMP #### [facility] [address] [place] [address] Dr. Lupe Evangelista Protein [Mass/Vol] 7.4 g/dL Normal 6.4-8.2 [facility] Comment on above: Performed By: #### C RP, CMP #### [facility] [address] [place] [address] Dr. Lupe Evangelista Sodium [Moles/Vol] 137 mmol/L Normal 136-145 [facility] Comment on above: Performed By: #### C RP, CMP #### [facility] [address] [address] [address] Lupe Evangelista Urea nitrogen [Mass/Vol] 8.0 mg/dL Normal 7.0-18.0 [facility] Comment on above: Performed By: #### C RP, CMP #### [facility] [address] [address] [address] Lupe Evangelista Urea nitrogen/Creatinine [Mass ratio] 10.5 mg/mg Normal [facility] Comment on above: Performed By: #### C RP, CMP #### [facility] [address] [place] [address] Dr. Lupe Evangelista SED RATE [facility] 2021 SED RATE 27 mm/hr Normal <=30 [facility] Comment on above: Performed By: #### S EDR #### [facility] [address] [place] [address] Dr. Lupe Evangelista XR KNEE RT 4V [...] by: HUNTER LAWRENCE Date: 2021-11-15 21:[address] [facility] Vital Signs Date Time Vital Sign Value Performing Clinician [place] 07-31-2023 14:30-0400 Blood Pressure Location Galileo Mcnamara [facility] General Surgery [place] 07-31-2023 14:30-0400 Diastolic blood pressure 62 mm[Hg] Galileo Mcnamara [facility] 07-31-2023 14:30-0400 Heart rate 68 /min Galileo CAMACHOL [facility] 07-31-2023 14:30-0400 Respiratory rate 16 /min Galileo CAMACHOL [facility] 07-31-2023 14:30-0400 Systolic blood pressure 120 mm[Hg] [facility] En[facility] Encounter Date Encounter Type Care Provider Facility Start: 09-24-2023 End: 09-24-2023 ambulatory Galileo R MELL Facility: [facility] Start: 09-24-2023 End: 09-24-2023 Patient encounter procedure [facility] Start: 09-18-2023 End: 09-18-2023 ambulatory Galileo Cleary [facility] Work Phone: Start: 09-18-2023 End: 09-18-2023 Departed Referred MD Galileo Cleary Work Phone: [facility] [place] [facility] Start: 09-18-2023 End: 09-18-2023 ambulatory Galileo CLEARY Facility:[id number] Start: 07-31-2023 End: 07-31-2023 ambulatory Galileo R NILRenu Facility: [facility] Start: 07-31-2023 End: 07-31-2023 Patient encounter [facility] Start: 07-19-2023 ambulatory Galileo CLEARY Facility:[facility]io Romero Start: 05-14-2022 End: 05-15-[address] VELMA MULLER . Facility: Start: 02-07-2022 End: 02-08-[address] VELMA MULLER . Facility:[facility] Start: 12-01-2021 End: 12-02-[address] VELMA MULLER . Facility:[facility] Start: 11-29-2021 End: 11-30-[address] VELMA MULLER . Facility:[facility] Start: 11-15-2021 End: 11-16-[address] VELMA MULLER . Facility: Procedures Date Procedure Procedure Detail Performing Clinician Start: 09-18-2023 Excision of lesion of skin Galileo NILL Comment on above: right ear Appendectomy Galileo NILL Cholecystectomy Galileo NILL Esophageal hiatus he rnia repair Galileo NILL Extraction of cataract Prosper jonh NILL History of operative procedure on hip Galileo NILL Lumpectomy of left breast Mi chael NILL Repair of joint of right hip Galileo NILL Immunizations Immunization Date Immunization Notes Care Provider Fa cility 12-07-2021 SARS-CoV-2 (COVID-19 ) [id number] Galileo NILL [facility] 07-14-2021 SARS-CoV-2 mRNA (qxrluznrpku-kyzm-tapcs se) vaccine Galileo NILL [facility] 12-27-2020 SARS-CoV-2 (COVID-19 ) mRNA BNT-162b2 vax Galileo NILL [facility] 05-18-2020 SARS-CoV-2 (COVID-19 ) mRNA BNT-162b2 vax Galileo NILL [facility] Comment on above: Result Comment: 2023: [id number] 04-27-2020 SARS-CoV-2 (COVID-19 ) mRNA BNT-162b2 vax Galileo CLEARY [facility] Comment on above: Result Comment: 2023: [id number] Payers Date Payer Category Payer Self-pay [id number] 1959 Medicare [id number] 1960 Unknown [id number] 1950 Unknown [id number] 1950 Unknown [id number] 1950 Unknown [id number] 1949 Unknown [id number] 1949 Unknown [id number] 1949 Unknown [id number] 1950 Unknown [id number] 1950 Unknown [id number] Unknown Regular Insurance [id number] Unknown [id number] Worker's Compensation [employer] [facility] [id number] Social History Date Type Detail Facility Start: 07-31-2023 Tobacco smoking status Never s moked tobacco (finding) [facility] status [facility] Sex Assigned At Female [facility] Start: 1950 Sex Assigned At Female F [facility] Functional Status Date Assessment Result Facility 07-31-2023 [facility] [place] Clinical Note 07-31-2023 Note Date & Type [...] plan excisional biopsy under local anesthesia at [facility], for definitive diagnosis and treatment; informed consent [...] Immunizations Vaccine Date Status Comments SARS-CoV-2 (COVID-19) [id number].[id number] 12/07/2021 Recorded SARSCoV2 mRNA(ylruxaboq-olsn-dlujes) vac 07/14/2021 Recorded SARS-CoV-2 (COVID-19) mRNA BNT-162b2 vax 12/27/2020 Recorded SARS-CoV-2 (COVID-19) mRNA BNT-162b2 vax 05/18/2020 Recorded 2023-07-19: [id number] SARS-CoV-2 (COVID-19) mRNA BNT-162b2 vax 04/27/2020 Recorded 2023-07-19: [id number] [facility] Comment on above: Result Comment: Elec tronically Signed By: MELL MONGE, Galileo Roberts\Date and Time Signed: 07/31/23 15:12 EDT Evaluation + Plan note Note Date & Type Note Facility Evaluation + Plan note No data available for this section [facility] Evaluation note Note Date & Type Note Facility [facility] Discharge instructions Note Date & Type Note Facility Hospital Discharge instructions No data available for this section [facility] Progress note Note Date & Type Note Facility Progress note No data available for this section [facility] Summary Purpose Family History No Family History Records Found No data available for this section No Family History Records Found No data available for this section No Family History Records Found Advance Directives No Advanced Directives Records Found Advance Directive Response Recorded Date/ Time Advance Directives No July 10, 018 6:52am Additional Source Comments INFORMATION SOURCE (unrecogn ized section and content) DATE CREATED AUTHOR 05/19/2022 [facility] DATE CREATED AUTHOR AUTHOR'S ORGANIZ ATION 09/24/2023 [facility] DATE CREATED AUTHOR AUTHOR'S ORGANIZ ATION 09/26/2023 [facility] Patient Care team informatio n (unrecognized section and content) Team Status: Inactive Member Role Status Dates Galileo Cleary MD FACS Attending Provider Active Start: September 18, 2023 End: September 18, 2023 Goals (unrecognized section and content) Goals may be documented in a n alternate section FOR RECORDS PERTAINING TO PATIENTS WHO ARE [...] BE BASED ON THE PRIMARY CLINICAL RECORDS. [employer] provides no warranty or guarantee of the accuracy or completeness of information in this document.
--- NOTE | 2024-02-12 11:26 | XR_ITS ---
The [address] [address] Patient Name: DARRYL ZAYAS MRN: [id number] date: 1950 Sex: F Assigned Patient Location: LAB Current Patient Location: MS Accession/Order Number: [id number] Exam Date: 02/12/2024 11:35 Report Date: 02/14/2024 06:53 At the request of: VELMA WATKINS Procedure: XR chest 2V EXAMINATION: XR chest 2V HISTORY: Chronic Obstructive Pulmonary Disease COMPARISON: XR chest 02/07/2022 FINDINGS: LUNGS: Hyperexpanded lungs compatible with COPD. Stable mild opacities within right lung base partially obscuring the diaphragm margin. Prominent pericardial fat pad within left lung base. VASCULATURE: No increased pulmonary vasculature. PLEURA: No pneumothorax, effusion, or pleural thickening. CARDIAC: No cardiomegaly or cardiac silhouette abnormality. MEDIASTINUM: No visible mass or adenopathy. BONES: No fracture or visible bone lesion. OTHER: Enlarged appearance of the aortic arch, approximately 5.3 cm. XR/XR chest 2V IMPRESSION: 1. Hyperexpanded lungs compatible with COPD. 2. Mild right basilar infiltrates versus atelectasis; slightly <seen on prior study. 3. 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 Electronically authenticated by: MARYBETH MORALES Date: 02/14/2024 06:53
[2024-02-12 11:28] LABS: Basophils Percent Auto 0.2 % (0.2-2.0); Eosinophils Percent Auto 0.2 % (0.9-7.0); Hematocrit 39.8 % (36.0-48.0); Hemoglobin 12.8 g/dL (12.0-16.0); Immature Granulocytes Abs Auto 0.19 10^3/uL (0.00-0.03); Immature Granulocytes Pct Auto 1.3 % (0.0-0.5); Lymphocytes Absolute Auto 2.2 10^3/uL (1.2-3.8); Lymphocytes Percent Auto 15.4 % (20.5-60.0); Mean Corpuscular HGB Conc 32.2 g/dL (29.9-35.2); Mean Corpuscular Hemoglobin 25.8 pg (26.7-34.0); Mean Corpuscular Volume 80.2 fL (81.0-99.0); Monocytes Absolute Auto 1.2 10^3/uL (0.3-0.8); Monocytes Percent Auto 8.1 % (1.7-12.0); Neutrophils Absolute Auto 10.7 10^3/uL (1.4-6.5); Neutrophils Percent Auto 74.8 % (43.0-75.0); Platelet Count 197 10^3/uL (150-450); Red Blood Count 4.96 10^6/uL (4.20-5.40); Red Cell Distribution Width 16.1 % (11.0-15.0); White Blood Count 14.3 10^3/uL (4.0-11.0)
[2024-02-12 11:59] LABS: Alanine Aminotransferase 23 U/L (14-59); Albumin Globulin Ratio 1.2; Albumin Level 3.5 g/dL (3.4-5.0); Alkaline Phosphatase 76 U/L (46-116); Anion Gap 16.8; Aspartate Amino Transferase 16 U/L (15-37); BUN Creatinine Ratio 13.7; Bilirubin Total 0.9 mg/dL (0.2-1.0); Calcium 8.5 mg/dL (8.5-10.1); Carbon Dioxide 26.3 mmol/L (21.0-32.0); Chloride 97 mmol/L (98-107); Estimated GFR (African America 15 (>=60 mL/min/1.73m^2); Estimated GFR (Non-African Ame 13 (>=60 mL/min/1.73m^2); Glucose 132 mg/dL (74-106); Magnesium 1.6 mg/dL (1.8-2.4); Potassium 3.1 mmol/L (3.5-5.1); Sodium 137 mmol/L (136-145); Thyroid Stimulating Hormone 3.746 uIU/mL (0.358-3.740); Total Protein 6.5 g/dL (6.4-8.2); Troponin I High Sensitivity 44.7 pg/mL (4.0-51.3)
== END 2024-02-12 11:06 | disposition home or self-care (01) ==
LOC: LAB 11:07
PROVIDERS: PCP Family Medicine; Visit Provider Family Medicine
DX: J44.9 Chronic obstructive pulmonary disease, unspecified (principal); M54.9 Dorsalgia, unspecified; R53.83 Other fatigue; D64.9 Anemia, unspecified; E03.9 Hypothyroidism, unspecified; I50.30 Unspecified diastolic (congestive) heart failure; I11.0 Hypertensive heart disease with heart failure
CPT/HCPCS: 36415; 71046; 80053; 83540; 83735; 83880; 84436; 84443; 84481; 84484; 85025

== ENCOUNTER 2024-02-13 10:37 | Inpatient (IN) | payer MEDICARE, OTHER, SELFPAY ==
[2024-02-13] VITALS (16 sets, daily range): BP systolic 108–185; BP diastolic 58–84; PULSE 69–97; TEMP 36.3–36.8; O2SAT 93–99; BMI 22.3; BMI 22.4
--- NOTE | 2024-02-13 10:41 | XR_ITS ---
The [address] [address] Patient Name: DARRYL ZAYAS MRN: [id number] date: 1950 Sex: F Assigned Patient Location: ER Current Patient Location: ER Accession/Order Number: [id number] Exam Date: 02/13/2024 11:25 Report Date: 02/13/2024 12:02 At the request of: FLORENCE ALFREDO Procedure: XR chest 1V EXAMINATION: XR chest 1V HISTORY: weak COMPARISON: XR chest 02/12/2024 FINDINGS: LUNGS: Opacities within right lung base obscuring the diaphragm margin. Chronic interstitial changes suggestive of COPD. VASCULATURE: No increased pulmonary vasculature. PLEURA: No pneumothorax, effusion, or pleural thickening. CARDIAC: Suspect mild cardiomegaly. MEDIASTINUM: No visible mass or adenopathy. BONES: No fracture or visible bone lesion. OTHER: Negative. XR/XR chest 1V IMPRESSION: 1. Opacities within right lung base obscuring the diaphragm; mild infiltrates versus atelectasis. Possible small pleural effusion. Electronically authenticated by: MARYBETH MORALES Date: 02/13/2024 12:02
--- NOTE | 2024-02-13 10:41 | ECG_ITS ---
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
--- NOTE | 2024-02-13 11:02 | CT_ITS ---
[address] [address] Patient Name: DARRYL ZAYAS MRN: [id number] date: 1950 Sex: F Assigned Patient Location: ER Current Patient Location: ER Accession/Order Number: [id number] Exam Date: 02/13/2024 11:36 Report Date: 02/13/2024 12:20 At the request of: FLORENCE ALFREDO Procedure: CT abdomen pelvis wo con EXAMINATION: CT abdomen pelvis wo con HISTORY: vomiting, pain COMPARISON: No relevant comparison available. TECHNIQUE: Axial, Coronal, and Sagittal images were obtained without and/or with IV contrast as indicated by examination type. Dose reduction techniques were achieved by using automated exposure control and/or adjustment of mA and/or kV according to patient size and/or use of iterative reconstruction technique. FINDINGS: LUNG BASES: Prominent bronchiectasis within right lung base. Trace amount of atelectasis or infiltrates. No pleural effusion. Prominent pericardial fat pad likely accounting for appearance on today's chest x-ray. LIVER: No enlargement, atrophy, suspicious density, or significant focal lesion. BILIARY: Cholecystectomy. Prominent dilation of the common bile duct and proximal intrahepatic ducts. Gentle tapering to the ampulla of Vater. No appreciable stones or mass. PANCREAS: Marked fatty replacement/atrophy. No abnormal dilation of the pancreatic duct. No mass or fluid collection. SPLEEN: No enlargement or focal lesion. ADRENALS: No mass or enlargement. KIDNEYS: No mass, obstruction, or calcification. BOWEL/MESENTERY: No visible mass, obstruction, or bowel wall thickening. Normal appendix. AORTA/VASCULAR: No aneurysm or dissection. RETROPERITONEUM: No mass or adenopathy. LYMPH NODES: No adenopathy. URINARY BLADDER: No visible focal wall thickening, lesion, or calculus. PELVIC ORGANS: 3.0 cm oval fluid collection within lower left pelvis, likely ovarian cyst. ABDOMINAL WALL: Remote left pubic rami fractures and healing. Prior left femoral neck repair. Right hip replacement. T12 moderate-marked compression fracture without increased trabecular density. BONES: No bony lesion or fracture. OTHER: Negative. CT/CT abdomen pelvis wo con IMPRESSION: 1. Prominent chronic bronchiectasis within right lung base. No convincing infiltrates or pleural effusion. 2. Abnormally dilated common bile duct and intrahepatic ducts, but no appreciable mass or stone to cause obstruction. No pancreatic mass or abnormal dilation of the pancreatic duct. 3. Lower left pelvis 3.0 cm cyst suspected to be an ovarian cyst. This is abnormal in a patient of this age. Consider nonemergent follow-up ultrasound evaluation. 4. Age-indeterminate moderate compression fracture of T12, but suspected to be chronic. Old healed fractures of the pelvis and bilateral hip repair. Electronically authenticated by: MARYBETH MORALES Date: 02/13/2024 12:20
--- NOTE | 2024-02-13 11:04 | ED_ITS ---
HPI HPI - General Adult General Chief complaint: Recheck/Abnormal Lab/Rx Stated complaint: GENERAL WEAKNESS Time Seen by Provider: 02/13/24 10:41 Source: patient Mode of arrival: Wheelchair Limitations: no limitations History of Present Illness HPI narrative: Patient presents to ED complaining of abnormal labs. She was sent over by Dr. Muller for recent blood work that came back abnormal. She had labs done yesterday and her BUN and creatinine were elevated as well as her BNP was elevated. Patient states she has had some issues recently where she cannot really eat or drink anything, she said even soup she will drink it down and then it comes right back up for the past 3 to 4 weeks. She says she does not really have abdominal pain she just cannot really keep any food down and she has had a decreased appetite. She is also been more short of breath with exertion and she is retaining fluid in her lower extremities. She has more swelling in the right lower extremity, but it is bilateral. Family is concerned because she has not really been able to eat or drink much. A year ago her creatinine was normal and yesterday her creatinine was 3.5. Patient denies any flank pain or UTI symptoms. She does still report that she is making urine. She is alert and oriented. Denies chest pain. She denies shortness of breath right now but states that that has been coming and going recently. Related Data Home Medications ?Medication ?Instructions ?Recorded ?Confirmed colchicine 0.6 mg capsule 0.6 mg PO DAILY 08/13/23 02/13/24 fluticasone furoate 200 1 inh inhalation DAILY 08/13/23 02/13/24 mcg-vilanterol 25 mcg/dose inhalation powder (Breo Ellipta) lansoprazole 15 mg capsule,delayed 15 mg PO DAILY 08/13/23 02/13/24 release oxycodone 5 mg tablet 5 mg PO DAILY PRN pain (scale 08/13/23 02/13/24 score 4-6) albuterol sulfate 2.5 mg/3 mL 2.5 mg inhalation Q6H PRN 09/17/23 02/13/24 (0.083 %) solution for nebulization shortness of breath or wheezing calcitonin (salmon) 200 1 spray intranasal DAILY 02/13/24 02/13/24 unit/actuation nasal spray Allergies Allergy/AdvReac Type Severity Reaction Status Date / Time acetaminophen (From Vicodin) AdvReac Severe shortness Verified 02/13/24 10:46 of breath aspirin AdvReac Severe shortness Verified 02/13/24 10:46 of breath codeine AdvReac Severe shortness Verified 02/13/24 10:46 of breath hydrocodone (From Vicodin) AdvReac Severe shortness Verified 02/13/24 10:46 of breath morphine AdvReac Severe shortness Verified 02/13/24 10:46 of breath propoxyphene (From Darvon) AdvReac Mild shortness Verified 02/13/24 10:46 of breath Opioid HPI Opioid Management Most Recent Opioid Data: No Data to Display Review of Systems ROS Status of ROS 10 or more systems reviewed and unremark able except as noted in history and below PFSH [facility] Medical History Vitamin D deficiency ?E55.9 - Vitamin D deficiency, unspecified (ICD-10) Vitamin B deficiency ?E53.9 - Vitamin B deficiency, unspecified (ICD-10) Osteoporosis ?M81.0 - Age-related osteoporosis without current pathological fracture (ICD- 10) Benign neoplasm of ear ?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.20 - Other benign neoplasm of skin of unspecified ear and external auricular canal (ICD-10) Insomnia ?G47.00 - Insomnia, unspecified (ICD-10) Gout ?M10.9 - Gout, unspecified (ICD-10) GERD (gastroesophageal reflux disease) ?K21.9 - Gastro-esophageal reflux disease without esophagitis (ICD-10) Eczema ?L30.9 - Dermatitis, unspecified (ICD-10) COPD (chronic obstructive pulmonary disease) ?J44.9 - Chronic obstructive pulmonary disease, unspecified (ICD-10) Asthma ?J45.909 - Unspecified asthma, uncomplicated (ICD-10) Surgical History History of bronchoscopy ?Z98.890 - Other specified postprocedural states (ICD-10) 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.2 - Acquired absence of lung [part of] (ICD-10) History of repair of hiatal hernia ?Z98.890 - Other specified postprocedural states (ICD-10) ?Z87.19 - Personal history of other diseases of the digestive system (ICD-10) History of lumpectomy of left breast ?Z98.890 - Other specified postprocedural states (ICD-10) History of hip surgery ?Z98.890 - Other specified postprocedural states (ICD-10) Hx of cholecystectomy ?Z90.49 - Acquired absence of other specified parts of digestive tract (ICD- 10) H/O cataract extraction ?Z98.49 - Cataract extraction status, unspecified eye (ICD-10) History of arthroplasty of right hip ?Z96.641 - Presence of right artificial hip joint (ICD-10) History of laparoscopic appendectomy ?Z90.49 - Acquired absence of other specified parts of digestive tract (ICD- 10) Family History Other Breast cancer Dementia Heart disease Social History Within the past year, how often did you have a drink containing alcohol: never Within the past year, how often did you have six or more drinks on one occasion: never Score interpretation: A score less than 3 is consistent with normal alcohol consumption. Smoking status: Never smoker Non-prescribed substance use: denies use Previous occupational history: [employer], [employer] Highest level of school completed/degree received: high school graduate Little interest or pleasure in doing things: not at all Feeling down, depressed, or hopeless: not at all Exam Narrative Exam Narrative: Time Seen: [] Vital Signs: [Per nurse's notes.] General: [Alert] Skin: [Warm, dry, no rash.] Head: [Normocephalic, atraumatic.] Neck: [Supple, trachea midline.] Eye: [Pupils are equal, round and reactive to light, extraocular movements are intact, normal conjunctiva.] Ears, nose, mouth and throat: oral mucosa moist. Cardiovascular: [Regular rate and rhythm, no murmur.] Respiratory: [Patient has crackles in bilateral bases, no respiratory distress Chest wall: [No tenderness, no deformity.] Gastrointestinal: [Soft, nontender, mildly distended on palpation, normal bowel sounds.] MSK: 5 out of 5 muscle strength x 4 extremities no calf pain or edema Lymphatics: [No lymphadenopathy.] Psychiatric: [Cooperative, appropriate mood & affect.] Neurological: [Alert and oriented to person, place, time, and situation, no focal neurological deficit observed.] Constitutional Vital Signs, click to edit/add: Last Vital Signs Temp 97.8 F 02/13/24 10:42 Pulse 71 02/13/24 12:15 Resp 18 02/13/24 12:15 BP 137/66 02/13/24 12:15 Pulse Ox 97 02/13/24 12:15 O2 Del Method Room Air 02/13/24 10:42 Course Vital Signs Vital signs: Vital Signs Temperature 97.8 F 02/13/24 10:42 Pulse Rate 89 02/13/24 10:42 Respiratory Rate 20 02/13/24 10:42 Blood Pressure 185/84 H 02/13/24 10:42 Pulse Oximetry 95 02/13/24 10:42 Oxygen Delivery Method Room Air 02/13/24 10:42 Temperature 97.8 F 02/13/24 10:42 Pulse Rate 71 02/13/24 12:15 Respiratory Rate 18 02/13/24 12:15 Blood Pressure 137/66 02/13/24 12:15 Pulse Oximetry 97 02/13/24 12:15 Oxygen Delivery Method Room Air 02/13/24 10:42 Medical Decision Making MDM Narrative Medical decision making narrative: Patient potassium came back low at 2.9. IV potassium was ordered since the pa tient states she has had a lot of vomiting and cannot really keep anything down. Patient's BNP and creatinine are actually slightly better than yesterday however still elevated. Patient does have dilated pancreatic duct but no discernible mass or stone. This may be accounting for some of her vomiting. Patient will be admitted to Dr. Muller. Dr. Muller is comfortable with care plan for admission. Patient is stable down here in ED. Differential Diagnosis Differential Diagnosis: Abdominal mass, bowel obstruction, WHITNEY, elevated BNP, heart failure Lab Data Lab results reviewed: Yes I reviewed the patient's lab results Labs: Lab Results 02/13/24 Range/Units 11:01 WBC 11.4 H (4.0-11.0) 10^3/uL RBC 4.89 (4.20-5.40) 10^6/uL Hgb 12.5 (12.0-16.0) g/dL Hct 38.8 (36.0-48.0) % MCV 79.3 L (81.0-99.0) fL MCH 25.6 L (26.7-34.0) pg MCHC 32.2 (29.9-35.2) g/dL RDW 16.5 H (11.0-15.0) % Plt Count 191 (150-450) 10^3/uL MPV 13.8 H (9.5-13.5) fL Neut % (Auto) 72.2 (43.0-75.0) % Lymph % (Auto) 17.3 L (20.5-60.0) % [place] % (Auto) 8.0 (1.7-12.0) % Eos % (Auto) 0.2 L (0.9-7.0) % Baso % (Auto) 0.4 (0.2-2.0) % Neut # (Auto) 8.2 H (1.4-6.5) 10^3/uL Lymph # (Auto) 2.0 (1.2-3.8) 10^3/uL [place] # (Auto) 0.9 H (0.3-0.8) 10^3/uL Eos # (Auto) 0.0 (0.0-0.7) 10^3/uL Baso # (Auto) 0.1 (0.0-0.1) 10^3/uL Abs Immat Gran (auto) 0.22 H (0.00-0.03) 10^3/uL Imm/Tot Granulo (auto) 1.9 H (0.0-0.5) % PT 11.4 (9.0-11.6) sec INR 1.08 Sodium 138 (136-145) mmol/L Potassium 2.9 L* (3.5-5.1) mmol/L Chloride 98 (98-107) mmol/L Carbon Dioxide 28.5 (21.0-32.0) mmol/L Anion Gap 14.4 BUN 48.0 H (7.0-18.0) mg/dL Creatinine 2.73 H (0.55-1.02) mg/dL Est GFR ( Amer) 21 L (>=60 mL/min/1.73m^2) Est GFR (Non-Af Amer) 17 L (>=60 mL/min/1.73m^2) BUN/Creatinine Ratio 17.6 Glucose 116 H (74-106) mg/dL Calcium 8.5 (8.5-10.1) mg/dL Total Bilirubin 0.8 (0.2-1.0) mg/dL AST 17 (15-37) U/L ALT 23 (14-59) U/L Alkaline Phosphatase 76 (46-116) U/L Troponin I High Sens 35.5 (4.0-51.3) pg/mL NT-Pro-B Natriuret Pep 831.0 (<=900.0) pg/mL Total Protein 6.4 (6.4-8.2) g/dL Albumin 3.3 L (3.4-5.0) g/dL Globulin 3.1 g/dL Albumin/Globulin Ratio 1.[address] scan - abdomen: Radiologist's impression: ITS Impressions Chest X-Ray 02/13/24 10:41 IMPRESSION: 1. Opacities within right lung base obscuring the diaphragm; mild infiltrates versus atelectasis. Possible small pleural effusion. Electronically authenticated by: MARYBETH MORALES Date: 02/13/2024 12:02 Abdomen/Pelvis CT 02/13/24 11:02 IMPRESSION: 1. Prominent chronic bronchiectasis within right lung base. No convincing infiltrates or pleural effusion. 2. Abnormally dilated common bile duct and intrahepatic ducts, but no appreciable mass or stone to cause obstruction. No pancreatic mass or abnormal dilation of the pancreatic duct. 3. Lower left pelvis 3.0 cm cyst suspected to be an ovarian cyst. This is abnormal in a patient of this age. Consider nonemergent follow-up ultrasound evaluation. 4. Age-indeterminate moderate compression fracture of T12, but suspected to be chronic. Old healed fractures of the pelvis and bilateral hip repair. Electronically authenticated by: MARYBETH MORALES Date: 02/13/2024 12:20 ECG Data Attestation: I personally reviewed and interpreted this ECG as follows: Interpretation: EKG INTERPRETATION Time: [] 1048 Rate: [] 85 Rhythm: _ [] Normal sinus rhythm ST segments: _ [] No acute ST elevation or depression T waves: _ [] Ectopy: _ [] P wave/ME interval: _ [] QRS interval: _ [] QT interval: _ [] Comparison: _ [] Comparison EKG date: [] Performed by: [self] Discharge Plan Discharge Chief Complaint: Recheck/Abnormal Lab/Rx Time of Disposition Decision: 12:58 Prescriptions / Home Meds: No Action calcitonin (salmon) 200 unit/actuation spray,non-aerosol 1 spray intranasal DAILY fluticasone furoate-vilanterol [Breo Ellipta] 200-25 mcg/dose blister with device 1 inh inhalation DAILY colchicine 0.6 mg capsule 0.6 mg PO DAILY lansoprazole 15 mg capsule,delayed release(DR/EC) 15 mg PO DAILY oxycodone 5 mg tablet 5 mg PO DAILY PRN (Reason: pain (scale score 4-6)) albuterol sulfate 2.5 mg /3 mL (0.083 %) solution for nebulization 2.5 mg inhalation Q6H PRN (Reason: shortness of breath or wheezing) Print Language: Rw[place]
[2024-02-13 11:13] LABS: Basophils Absolute Auto 0.1 10^3/uL (0.0-0.1); Basophils Percent Auto 0.4 % (0.2-2.0); Eosinophils Percent Auto 0.2 % (0.9-7.0); Hematocrit 38.8 % (36.0-48.0); Hemoglobin 12.5 g/dL (12.0-16.0); Immature Granulocytes Abs Auto 0.22 10^3/uL (0.00-0.03); Immature Granulocytes Pct Auto 1.9 % (0.0-0.5); Lymphocytes Percent Auto 17.3 % (20.5-60.0); Mean Corpuscular HGB Conc 32.2 g/dL (29.9-35.2); Mean Corpuscular Hemoglobin 25.6 pg (26.7-34.0); Mean Corpuscular Volume 79.3 fL (81.0-99.0); Mean Platelet Volume 13.8 fL (9.5-13.5); Monocytes Absolute Auto 0.9 10^3/uL (0.3-0.8); Neutrophils Absolute Auto 8.2 10^3/uL (1.4-6.5); Neutrophils Percent Auto 72.2 % (43.0-75.0); Platelet Count 191 10^3/uL (150-450); Red Blood Count 4.89 10^6/uL (4.20-5.40); Red Cell Distribution Width 16.5 % (11.0-15.0); White Blood Count 11.4 10^3/uL (4.0-11.0)
[2024-02-13] MEDS: 0.9 % SODIUM CHLORIDE 1,000 ML 75 ML IV (11:14)
[2024-02-13 11:23] LABS: INR 1.08; Prothrombin Time 11.4 sec (9.0-11.6)
[2024-02-13 12:10] LABS: Alanine Aminotransferase 23 U/L (14-59); Albumin Globulin Ratio 1.1; Albumin Level 3.3 g/dL (3.4-5.0); Alkaline Phosphatase 76 U/L (46-116); Anion Gap 14.4; Aspartate Amino Transferase 17 U/L (15-37); BUN Creatinine Ratio 17.6; Bilirubin Total 0.8 mg/dL (0.2-1.0); Calcium 8.5 mg/dL (8.5-10.1); Carbon Dioxide 28.5 mmol/L (21.0-32.0); Chloride 98 mmol/L (98-107); Estimated GFR (African America 21 (>=60 mL/min/1.73m^2); Estimated GFR (Non-African Ame 17 (>=60 mL/min/1.73m^2); Globulin 3.1 g/dL; Glucose 116 mg/dL (74-106); Sodium 138 mmol/L (136-145); Total Protein 6.4 g/dL (6.4-8.2); Troponin I High Sensitivity 35.5 pg/mL (4.0-51.3)
[2024-02-13 12:12] LABS: Potassium 2.9 mmol/L (3.5-5.1)
--- OUTSIDE RECORDS SUMMARY | 2024-02-13 12:35 | XMS_ITS | CCD ---
Author Organization [facility] Care Team Providers Care Blue Leather Setter Name Role Phone NAYY ., DR CARREON [...] Care Physician MD Galileo Cleary Attending Provider [phone] Galileo Cleary Attending Unavailable Nill, Galileo Jarrett Admitting Unavailable NILL, Galileo Jarrett Attending Unavailable NILL, Galileo Jarrett Attending Unavailable HoyVelma Referring Unavailable NILLGalileo Attending Unavailable Allergies Allergy Classification Reported Allergen(s) Allergy Type Date of Onset Reaction(s) Facility (3 sources) Aspirin; Translations: [aspirin] Drug Allergy 4 Difficulty Breathing [facility] Repository (3 sources) Codeine; Translations: [codeine] Drug Allergy 8 Difficulty Breathing [facility] Repository (3 sources) Morphine; Translations: [morphine] Drug Allergy 9 Difficulty Breathing [facility] Repository (2 sources) Propoxyphene; Translations: [Darvon] Drug Allergy 3 [facility] Repository (1 source) Sulfamethoxazole / Trimethoprim Drug Allergy 3 [facility] Repository (3 sources) Acetaminophen / HYDROcodone; Translations: [acetaminophen-hydro codone] Drug Allergy Dyspnea (finding) [facility] (2 sources) Aspirin; Translations: [aspirin] Drug Allergy Dyspnea (finding) [facility] (2 sources) Codeine; Translations: [codeine] Drug Allergy Dyspnea (finding) [facility] (2 sources) Morphine; Translations: [morphine] Drug Allergy Dyspnea (finding) [facility] (3 sources) Propoxyphene; Translations: [propoxyphene] Drug Allergy 9 Dyspnea (finding) [facility] (2 sources) Sulfamethoxazole; Translations: [sulfamethoxazole] Drug Allergy 9 Difficulty Breathing [facility] (2 sources) Trimethoprim; Translations: [trimethoprim] Drug Allergy 9 Difficulty Breathing [facility] (1 source) Aspirin Drug Allergy 9 [facility] Repository (1 source) Codeine Drug Allergy 9 [facility] Repository (1 source) Morphine Drug Allergy 9 [facility] Repository (1 source) Propoxyphene Drug Allergy 9 [facility] Repository Medications Current Medications Medication Drug Class(es) [...] sources) Calcitonin Start: 05-26-2018 End: 06-02-2018 Calcitonin ([place]) Active 1 SPRAYS NASAL Daily 2.7 30 [...] for choosing us for your care. Chelsea [facility] General Surgery Office/Clini c Noteon 09-24-2023 General [...] Immunizations Vaccine Date Status Comments SARS-CoV-2 (COVID-19) mRNAMUL.ORD![id number] 12/07/2021 Recorded SARSCoV2 mRNA(rtwqgnggw-bgou-unlqp s) vac 07/14/2021 Recorded SARS-CoV-2 (COVID-19) mRNA BNT-162b2 vax 12/27/2020 Recorded SARS-CoV-2 (COVID-19) mRNA BNT-162b2 vax 05/18/2020 Recorded 2023-07-19: TPV70 SARS-CoV-2 (COVID-19) mRNA BNT-162b2 vax 04/27/2020 Recorded 2023-07-19: TPV70 Normal [facility] Comment on above: Result Comment: Elec tronically Signed By: MELL MONGE, Galileo Agrawalbr\Date and Time Signed: 09/24/23 14:47 EDT Cruz 09-18-2023 L Specimen: [id number] Received: 09/19/23 Status: KISHAN Garnett Num: [id number] Spec Type: Surgical Subm Dr: Galileo Cleary MD FACS Tissues: A Soft Tissue/Surgical Margin-Other than Tumor,Mass,Lip or Angella (RT EAR) Procedures: HE/4, Gross/Micro L4 Age/ Patient Sex Location Account Attending Physician Ilana Moore 73/F LABELL [id number] Galileo Cleary MD FACS SPEC NUM: [id number] RECD: 09/19/23 STATUS: INGRIDNicole GARNETT NUM: [id number] MARCO: 09/18/23-[address]: Galileo Cleary MD FACS ENTERED: 09/19/23-[address] [facility] [address]: Con Romero SPEC TYPE: Surgical [...] bisected and entirely submitted in A1. Specimen: [id number] Received: 09/19/23 Status: KISHAN Tamir Num: [id number] Spec Type: Surgical Subm Dr: Galileo Cleary MD FACS Tissues: A Soft Tissue/Surgical Margin-Other than Tumor,Mass,Lip or Angella (RT EAR) Procedures: HE/Melissa, Gross/Micro L4 Patient: OscarIlana L [id number] (Continued) Specimen: [id number] Received: 09/19/23 (Continued) Signed (signature on file) Cookie Evangelista MD 09/23/23 1129 Specimen: [id number] Received: 09/19/23 Status: KISHAN Coxalisha Num: [id number] Spec Type: Surgical Subm Dr: Galileo Cleary MD FACS Tissues: A Soft Tissue/Surgical Margin-Other than Tumor,Mass,Lip or Angella (RT EAR) Procedures: CLAUDE/Melissa, Gross/Micro L4 Patient: Ilana Moore [id number] (Continued) Specimen: [id number] Received: 09/19/23 (Continued) CPT Codes 80662 Specimen: [id number] Received: 09/19/23 Status: KISHAN Garnett Num: [id number] Spec Type: Surgical Subm Dr: Galileo Cleary MD FACS Tissues: A Soft Tissue/Surgical Margin-Other than Tumor,Mass,Lip or Angella (RT EAR) Procedures: /Melissa, Gross/Micro L4 Patient: Ilnaa Moore [id number] (Continued) Signed (signature on file) Cookie Evangelista MD 09/23/23 1129 Normal [facility] Consent for Procedure/Surger yon 08-02-2023 Consent for Procedure/Surgery [id number]#1.00TIFF Normal [facility] Facesheeton 08-01-2023 Facesheet [id number]#1.00TIFF [facility] Ambulatory Visit Summaryon 0 07-31-2023 Ambulatory Visit [...] for choosing us for your care. Normal [facility] MG MAMM SCREEN 3D ALLEN CADon 05-14-2022 MG MAMM SCREEN 3D ALLEN CAD Patient: ILANA MOORE Exam Date: 05/14/2022 : 1950 Gender:F Ordering : DR VELMA MULLER . Admission #: [id number] Family : Order #: [id number] CLICK HERE TO VIEW EXAM RADIOLOGY REPORT [...] liver cancer at age 66. LOCATION: [facility] BREAST COMPOSITION: Scattered areas fibroglandular density. [...] M.D. on 05/16/2022 at 13:19 Normal [facility] INSULINon 02-08-2022 Insulin 6.6 uIU/mL Normal 2.6-24.9 [facility] Comment on above: Performed By: #### C BC #### [facility] [address] [place] [address] Dr. Lupe Evangelista CBC AUTO DIFFon 02-07-2022 BASO # 0.1 103/ul Normal 0.0-0.1 [facility] Comment on above: Performed By: #### C BC #### [facility] [address] [place] [address] Dr. Lupe Evangelista Basophils/100 WBC (Bld) 0.7 % Normal 0.2-2.0 [facility] Comment on above: Performed By: #### C BC #### [facility] [address] [place] [address] Dr. Lupe Evangelista EO # 0.4 103/ul Normal 0.0-0.7 [facility] Comment on above: Performed By: #### C BC #### [facility] [address] [place] [address] Dr. Lupe Evangelista Eosinophils/100 WBC (Bld) 5.4 % Normal 0.9-7.0 [facility] Comment on above: Performed By: #### C BC #### [facility] [address] [place] [address] Dr. Lupe Evangelista Erythrocyte distribution width (RBC) [Ratio] 15.9 % Critically high 11.0-15.0 [facility] Comment on above: Performed By: #### C BC #### [facility] [address] [place] [address] Dr. Lupe Evangelista Hematocrit (Bld) [Volume fraction] 39.8 % Normal 36.0-48.0 [facility] Comment on above: Performed By: #### C BC #### [facility] [address] [place] [address] Dr. Lupe Evangelista Hemoglobin (Bld) [Mass/Vol] 11.6 g/dL Critically low 12.0-16.0 [facility] Comment on above: Performed By: #### C BC #### [facility] [address] [address] [address] Lupe Evangelista IG # 0.02 10e3/ul Normal 0.00-0.03 [facility] Comment on above: Performed By: #### C BC #### [facility] [address] [address] [address] Lupe Evangelista IG % 0.2 % Normal 0.0-0.5 [facility] Comment on above: Performed By: #### C BC #### [facility] [address] [place] [address] Dr. Lupe Evangelista LYMPH # 2.9 103/ul Normal 1.2-3.8 [facility] Comment on above: Performed By: #### C BC #### [facility] [address] [place] [address] Dr. Lupe Evangelista Lymphocytes/100 WBC (Bld) 35.2 % Normal 20.5-60.0 [facility] Comment on above: Performed By: #### C BC #### [facility] [address] [place] [address] Dr. Lupe Evangelista MANUAL DIFF REQ NO Normal [facility] Comment on above: Performed By: #### C BC #### [facility] [address] [place] [address] Dr. Lupe Evangelista MCH (RBC) [Entitic mass] 23.4 pg Critically low 26.7-34.0 [facility] Comment on above: Performed By: #### C BC #### [facility] [address] [place] [address] Dr. Lupe Evangelista MCHC (RBC) [Mass/Vol] 29.1 g/dL Critically low 29.9-35.2 [facility] Comment on above: Performed By: #### C BC #### [facility] [address] [place] [address] Dr. Lupe Evangelista MCV (RBC) [Entitic vol] 80.4 fL Critically low 81.0-99.0 [facility] Comment on above: Performed By: #### C BC #### [facility] [address] [place] [address] Dr. Lupe Evangelista MONO # 0.8 103/ul Normal 0.3-0.8 [facility] Comment on above: Performed By: #### C BC #### [facility] [address] [place] [address] Dr. Lupe Evangelista Monocytes/100 WBC (Bld) 9.8 % Normal 1.7-12.0 [facility] Comment on above: Performed By: #### C BC #### [facility] [address] [place] [address] Dr. Lupe Evangelista NEUT # 4.0 103/ul Normal 1.4-6.5 [facility] Comment on above: Performed By: #### C BC #### [facility] [address] [place] [address] Dr. Lupe Evangelista Neutrophils/100 WBC (Bld) 48.7 % Normal 43.0-75.0 [facility] Comment on above: Performed By: #### C BC #### [facility] [address] [place] [address] Dr. Lupe Evangelista Platelet mean volume (Bld) [Entitic vol] 11.0 fL Normal 9.5-13.5 [facility] Comment on above: Performed By: #### C BC #### [facility] [address] [place] [address] Dr. Lupe Evangelista PLT 341 103/ul Normal 150-450 [facility] Comment on above: Performed By: #### C BC #### [facility] [address] [place] [address] Dr. Lupe Evangelista RBC 4.95 106/ul Normal 4.20-5.40 [facility] Comment on above: Performed By: #### C BC #### [facility] [address] [place] [address] Dr. Lupe Evangelista WBC 8.2 103/ul Normal 4.0-11.0 [facility] Comment on above: Performed By: #### C BC #### [facility] [address] [place] [address] Dr. Lupe Evangelista FREE THYROXINE INDEX T7on FTI 1.98 Normal 1.30-4.50 [facility] Comment on above: Performed By: #### C BC #### [facility] [address] [address] [address] Lupe Evangelista T3U 31.0 % Normal 30.0-39.0 [facility] Comment on above: Performed By: #### C BC #### [facility] [address] [address] [address] Lupe Evangelista T4 [Mass/Vol] 6.40 ug/dL Normal 4.80-13.90 [facility] Comment on above: Performed By: #### C BC #### [facility] [address] [place] [address] Dr. Lupe Evangelista GLYCOHEMOGLOBIN A1Con 2021 ADA RECOMMENDATION SEE BELOW Normal [facility] Comment on above: Result Comment: ADA RECOMMENDED LIMIT 4.0 - 6.0 ADA THERAPEUTIC TARGET < 7.0 ACTION SUGGESTED > 7.0 Performed By: #### C BC #### [facility] [address] [place] [address] Dr. Lupe Evangelista Glucose [Mass/Vol] 128 mg/dL Normal [facility] Comment on above: Performed By: #### C BC #### [facility] [address] [place] [address] Dr. Lupe Evangelista HbA1c (Bld) [Mass fraction] 6.1 % Normal 4.5-6.2 [facility] Comment on above: Performed By: #### C BC #### [facility] [address] [place] [address] Dr. Lupe Evangelista IRONon 02-07-2022 Iron [Mass/Vol] 44.0 ug/dL Critically low 50.0-170.0 [facility] Comment on above: Performed By: #### I DINO JACOBO #### [facility] [address] [place] [address] Dr. Lupe Evangelista LIPID PROFILEon 02-07-2022 CHOL-HDL RATIO NORM SEE BELOW Normal [facility] Comment on above: Result Comment: 3.3 - 4.4 LOW RISK 4.4 - 7.1 AVERAGE RISK 7.1 - 11.0 MODERATE RISK >11.0 HIGH RISK Performed By: #### C BC #### [facility] [address] [place] [address] Dr. Lupe Evangelista Cholesterol [Mass/Vol] 217 mg/dL Critically high <=200 [facility] Comment on above: Performed By: #### C BC #### [facility] [address] [place] [address] Dr. Lupe Evangelista Cholesterol in HDL [Mass/Vol] 60 mg/dL Normal 40-60 [facility] Comment on above: Performed By: #### C BC #### [facility] [address] [place] [address] Dr. Lupe Evangelista Cholesterol in LDL [Mass/Vol] 136.0 mg/dL Normal [facility] Comment on above: Performed By: #### C BC #### [facility] [address] [place] [address] Dr. Lupe Evangelista Cholesterol.total/C holesterol in HDL [Mass ratio] 3.6 {ratio} Normal [facility] Comment on above: Performed By: #### C BC #### [facility] [address] [place] [address] Dr. Lupe Evangelista HDL NORMAL > or = 60 mg/dl - LO W CARDIOVASCULAR RISK <40 mg/dl - HIGH CARDIOVASCULAR RISK Normal [facility] Comment on above: Performed By: #### C BC #### [facility] [address] [place] [address] Dr. Lupe Eavngelista LDL CALC NORMAL SEE BELOW Normal [facility] Comment on above: Result Comment: <100 mg/dl OPTIMAL 100 - 129 mg/dl NEAR OR ABOVE OPTIMAL 130 - 159 mg/dl BORDERLINE HIGH 160 - 189 mg/dl HIGH >190 mg/dl VERY HIGH Performed By: #### C BC #### [facility] [address] [place] [address] Dr. Lupe Evangelista Triglyceride [Mass/Vol] 105 mg/dL Normal <=150 [facility] Comment on above: Performed By: #### C BC #### [facility] [address] [address] [address] Lupe Evangelista VLDL CALC 21.0 mg/dL Normal [facility] Comment on above: Performed By: #### C BC #### [facility] [address] [place] [address] Dr. Lupe Evangelista PROF 14(COMP METB)on 022 Albumin [Mass/Vol] 3.7 g/dL Normal 3.4-5.0 [facility] Comment on above: Performed By: #### C MP, LIPID, TSH, T7 #### [facility] [address] [place] [address] Dr. Lupe Evangelista Albumin/Globulin [Mass ratio] 1.0 {ratio} Normal [facility] Comment on above: Performed By: #### C MP, LIPID, TSH, T7 #### [facility] [address] [place] [address] Dr. Lupe Evangelista ALP [Catalytic activity/Vol] 86 U/L Normal 46-116 [facility] Comment on above: Performed By: #### C MP, LIPID, TSH, T7 #### [facility] [address] [place] [address] Dr. Lupe Evangelista ALT [Catalytic activity/Vol] 16 U/L Normal 14-59 [facility] Comment on above: Performed By: #### C MP, LIPID, TSH, T7 #### [facility] [address] [place] [address] Dr. Lupe Evangelista Anion gap [Moles/Vol] 7.0 mmol/L Normal [facility] Comment on above: Performed By: #### C MP, LIPID, TSH, T7 #### [facility] [address] [place] [address] Dr. Lupe Evangelista AST [Catalytic activity/Vol] 14 U/L Critically low 15-37 [facility] Comment on above: Performed By: #### C MP, LIPID, TSH, T7 #### [facility] [address] [place] [address] Dr. Lupe Evangelista Bilirubin [Mass/Vol] 0.4 mg/dL Normal 0.2-1.0 [facility] Comment on above: Performed By: #### C MP, LIPID, TSH, T7 #### [facility] [address] [address] [address] Lupe Evangelista Calcium [Mass/Vol] 8.9 mg/dL Normal 8.5-10.1 [facility] Comment on above: Performed By: #### C MP, LIPID, TSH, T7 #### [facility] [address] [place] [address] Dr. Lupe Evangelista Chloride [Moles/Vol] 102 mmol/L Normal 98-107 [facility] Comment on above: Performed By: #### C MP, LIPID, TSH, T7 #### [facility] [address] [place] [address] Dr. Lupe Evangelista CO2 [Moles/Vol] 34.3 mmol/L Critically high 21.0-32.0 [facility] Comment on above: Performed By: #### C MP, LIPID, TSH, T7 #### [facility] [address] [place] [address] Dr. Lupe Evangelista Creatinine [Mass/Vol] 0.73 mg/dL Normal 0.55-1.02 [facility] Comment on above: Performed By: #### C MP, LIPID, TSH, T7 #### [facility] [address] [place] [address] Dr. Lupe Evangelista EGFR-AF SWAZI >60 Normal >=60 [facility] Comment on above: Performed By: #### C MP, LIPID, TSH, T7 #### [facility] [address] [place] [address] Dr. Lupe Evangelista EGFR-NON AF SWAZI >60 Normal >=60 [facility] Comment on above: Performed By: #### C MP, LIPID, TSH, T7 #### [facility] [address] [place] [address] Dr. Lupe Evangelista Globulin (S) [Mass/Vol] 3.8 g/dL Normal [facility] Comment on above: Performed By: #### C MP, LIPID, TSH, T7 #### [facility] [address] [place] [address] Dr. Lupe Evangelista Glucose [Mass/Vol] 111 mg/dL Critically high 74-106 [facility] Comment on above: Performed By: #### C MP, LIPID, TSH, T7 #### [facility] [address] [address] [address] Lupe Evangelista Potassium [Moles/Vol] 4.3 mmol/L Normal 3.5-5.1 [facility] Comment on above: Performed By: #### C MP, LIPID, TSH, T7 #### [facility] [address] [address] [address] Lupe Evangelista Protein [Mass/Vol] 7.5 g/dL Normal 6.4-8.2 [facility] Comment on above: Performed By: #### C MP, LIPID, TSH, T7 #### [facility] [address] [place] [address] Dr. Lupe Evangelista Sodium [Moles/Vol] 139 mmol/L Normal 136-145 [facility] Comment on above: Performed By: #### C MP, LIPID, TSH, T7 #### [facility] [address] [place] [address] Dr. Lupe Evangelista Urea nitrogen [Mass/Vol] 11.0 mg/dL Normal 7.0-18.0 [facility] Comment on above: Performed By: #### C MP, LIPID, TSH, T7 #### [facility] [address] [place] [address] Dr. Lupe Evangelista Urea nitrogen/Creatinine [Mass ratio] 15.1 mg/mg Normal [facility] Comment on above: Performed By: #### C MP, LIPID, TSH, T7 #### [facility] [address] [place] [address] Dr. Lupe Evangelista TSHon 02-07-2022 TSH 2.224 uIU/mL Normal 0.358-3.740 [facility] Comment on above: Performed By: #### C BC #### [facility] [address] [place] [address] Dr. Lupe Evangelista VITAMIN D 25 OHon 02-07-2022 VIT D 25-OH 17.8 ng/mL Normal [facility] Comment on above: Performed By: #### I DONNELL VITAD #### [facility] [address] [address] [address] Lupe Evangelista VIT D RANGES SEE BELOW Normal [facility] Comment on above: Result Comment: <20 ng/mL Vit D deficient 20 - <30 ng/mL Vit D insufficient 30 - 100 ng/mL Vit D sufficient >100 ng/mL Potential Toxicity Performed By: #### I DONNELL VITAD #### [facility] [address] [address] [address] Lupe Evangelista XR CHEST 2 Von [...] ARIANNE BRAGA Date: 2022-02-07 17:56 Normal [facility] CBC AUTO DIFFon 12-01-2021 BASO # 0.1 103/ul Normal 0.0-0.1 [facility] Comment on above: Performed By: #### C BC #### [facility] [address] [place] [address] Dr. Lupe Evangelista Basophils/100 WBC (Bld) 0.8 % Normal 0.2-2.0 [facility] Comment on above: Performed By: #### C BC #### [facility] [address] [place] [address] Dr. Lupe Evangelista EO # 0.4 103/ul Normal 0.0-0.7 [facility] Comment on above: Performed By: #### C BC #### [facility] [address] [place] [address] Dr. Lupe Evangelista Eosinophils/100 WBC (Bld) 5.4 % Normal 0.9-7.0 [facility] Comment on above: Performed By: #### C BC #### [facility] [address] [place] [address] Dr. Lupe Evangelista Erythrocyte distribution width (RBC) [Ratio] 16.3 % Critically high 11.0-15.0 [facility] Comment on above: Performed By: #### C BC #### [facility] [address] [place] [address] Dr. Lupe Evangelista Hematocrit (Bld) [Volume fraction] 36.0 % Normal 36.0-48.0 [facility] Comment on above: Performed By: #### C BC #### [facility] [address] [place] [address] Dr. Lupe Evangelista Hemoglobin (Bld) [Mass/Vol] 10.4 g/dL Critically low 12.0-16.0 [facility] Comment on above: Performed By: #### C BC #### [facility] [address] [place] [address] Dr. Lupe Evangelista IG # 0.04 10e3/ul Critically high 0.00-0.03 [facility] Comment on above: Performed By: #### C BC #### [facility] [address] [place] [address] Dr. Lupe Evangelista IG % 0.6 % Critically high 0.0-0.5 [facility] Comment on above: Performed By: #### C BC #### [facility] [address] [place] [address] Dr. Lupe Evangelista LYMPH # 1.9 103/ul Normal 1.2-3.8 [facility] Comment on above: Performed By: #### C BC #### [facility] [address] [place] [address] Dr. Lupe Evangelista Lymphocytes/100 WBC (Bld) 29.1 % Normal 20.5-60.0 [facility] Comment on above: Performed By: #### C BC #### [facility] [address] [place] [address] Dr. Lupe Evangelista MANUAL DIFF REQ NO Normal [facility] [facility] Comment on above: Performed By: #### C BC #### [facility] [address] [place] [address] Dr. Lupe Evangelista MCH (RBC) [Entitic mass] 24.9 pg Critically low 26.7-34.0 [facility] Comment on above: Performed By: #### C BC #### [facility] [address] [place] [address] Dr. Lupe Evangelista MCHC (RBC) [Mass/Vol] 28.9 g/dL Critically low 29.9-35.2 [facility] Comment on above: Performed By: #### C BC #### [facility] [address] [place] [address] Dr. Lupe Evangelista MCV (RBC) [Entitic vol] 86.1 fL Normal 81.0-99.0 [facility] Comment on above: Performed By: #### C BC #### [facility] [address] [place] [address] Dr. Lupe Evangelista MONO # 0.7 103/ul Normal 0.3-0.8 [facility] Comment on above: Performed By: #### C BC #### [facility] [address] [place] [address] Dr. Lupe Evangelista Monocytes/100 WBC (Bld) 10.7 % Normal 1.7-12.0 [facility] Comment on above: Performed By: #### C BC #### [facility] [address] [place] [address] Dr. Lupe Evangelista NEUT # 3.4 103/ul Normal 1.4-6.5 [facility] Comment on above: Performed By: #### C BC #### [facility] [address] [place] [address] Dr. Lupe Evangelista Neutrophils/100 WBC (Bld) 53.4 % Normal 43.0-75.0 [facility] Comment on above: Performed By: #### C BC #### [facility] [address] [place] [address] Dr. Lupe Evangelista Platelet mean volume (Bld) [Entitic vol] 10.6 fL Normal 9.5-13.5 [facility] Comment on above: Performed By: #### C BC #### [facility] [address] [address] [address] Lupe Evangelista PLT 320 103/ul Normal 150-450 [facility] Comment on above: Performed By: #### C BC #### [facility] [address] [place] [address] Dr. Lupe Evangelista RBC 4.18 106/ul Critically low 4.20-5.40 [facility] Comment on above: Performed By: #### C BC #### [facility] [address] [place] [address] Dr. Lupe Evangelista WBC 6.4 103/ul Normal 4.0-11.0 [facility] Comment on above: Performed By: #### C BC #### [facility] [address] [place] [address] Dr. Lupe Evangelista CRPon 12-01-2021 CRP 1.6 mg/dL Critically high <=1.0 [facility] Comment on above: Performed By: #### C RP #### [facility] [address] [place] [address] Dr. Lupe Evangelista CBC AUTO DIFFon 11-29-2021 BASO # 0.1 103/ul Normal 0.0-0.1 [facility] Comment on above: Performed By: #### C BC #### [facility] [address] [place] [address] Dr. Lupe Evangelista Basophils/100 WBC (Bld) 0.6 % Normal 0.2-2.0 [facility] Comment on above: Performed By: #### C BC #### [facility] [address] [place] [address] Dr. Lupe Evangelista EO # 0.4 103/ul Normal 0.0-0.7 [facility] Comment on above: Performed By: #### C BC #### [facility] [address] [place] [address] Dr. Lupe Evangelista Eosinophils/100 WBC (Bld) 5.4 % Normal 0.9-7.0 [facility] Comment on above: Performed By: #### C BC #### [facility] [address] [place] [address] Dr. Lupe Evangelista Erythrocyte distribution width (RBC) [Ratio] 16.5 % Critically high 11.0-15.0 [facility] Comment on above: Performed By: #### C BC #### [facility] [address] [place] [address] Dr. Lupe Evangelista Hematocrit (Bld) [Volume fraction] 36.1 % Normal 36.0-48.0 [facility] Comment on above: Performed By: #### C BC #### [facility] [address] [place] [address] Dr. Lupe Evangelista Hemoglobin (Bld) [Mass/Vol] 10.6 g/dL Critically low 12.0-16.0 [facility] Comment on above: Performed By: #### C BC #### [facility] [address] [place] [address] Dr. Lupe Evangelista IG # 0.03 10e3/ul Normal 0.00-0.03 [facility] Comment on above: Performed By: #### C BC #### [facility] [address] [place] [address] Dr. Lupe Evangelista IG % 0.4 % Normal 0.0-0.5 [facility] Comment on above: Performed By: #### C BC #### [facility] [address] [place] [address] Dr. Lupe Evangelista LYMPH # 2.3 103/ul Normal 1.2-3.8 [facility] Comment on above: Performed By: #### C BC #### [facility] [address] [place] [address] Dr. Lupe Evangelista Lymphocytes/100 WBC (Bld) 29.9 % Normal 20.5-60.0 [facility] Comment on above: Performed By: #### C BC #### [facility] [address] [place] [address] Dr. Lupe Evangelista MANUAL DIFF REQ NO Normal [facility] Comment on above: Performed By: #### C BC #### [facility] [address] [place] [address] Dr. Lupe Evangelista MCH (RBC) [Entitic mass] 25.4 pg Critically low 26.7-34.0 [facility] Comment on above: Performed By: #### C BC #### [facility] [address] [place] [address] Dr. Lupe Evangelista MCHC (RBC) [Mass/Vol] 29.4 g/dL Critically low 29.9-35.2 [facility] Comment on above: Performed By: #### C BC #### [facility] [address] [place] [address] Dr. Lupe Evangelista MCV (RBC) [Entitic vol] 86.4 fL Normal 81.0-99.0 [facility] Comment on above: Performed By: #### C BC #### [facility] [address] [place] [address] Dr. Lupe Evangelista MONO # 0.9 103/ul Critically high 0.3-0.8 [facility] Comment on above: Performed By: #### C BC #### [facility] [address] [place] [address] Dr. Lupe Evangelista Monocytes/100 WBC (Bld) 10.9 % Normal 1.7-12.0 [facility] Comment on above: Performed By: #### C BC #### [facility] [address] [place] [address] Dr. Lupe Evangelista NEUT # 4.1 103/ul Normal 1.4-6.5 [facility] Comment on above: Performed By: #### C BC #### [facility] [address] [place] [address] Dr. Lupe Evangelista Neutrophils/100 WBC (Bld) 52.8 % Normal 43.0-75.0 [facility] Comment on above: Performed By: #### C BC #### [facility] [address] [place] [address] Dr. Lupe Evangelista Platelet mean volume (Bld) [Entitic vol] 11.2 fL Normal 9.5-13.5 [facility] Comment on above: Performed By: #### C BC #### [facility] [address] [place] [address] Dr. Lupe Evangelista PLT 351 103/ul Normal 150-450 [facility] Comment on above: Performed By: #### C BC #### [facility] [address] [address] [address] Lupe Evangelista RBC 4.18 106/ul Critically low 4.20-5.40 [facility] Comment on above: Performed By: #### C BC #### [facility] [address] [place] [address] Dr. Lupe Evangelista WBC 7.8 103/ul Normal 4.0-11.0 [facility] Comment on above: Performed By: #### C BC #### [facility] [address] [place] [address] Dr. Lupe Evangelista CRPon 11-29-2021 CRP 1.7 mg/dL Critically high <=1.0 [facility] Comment on above: Performed By: #### C RP, CMP #### [facility] [address] [place] [address] Dr. Lupe Evangelista CULTURE BLOODon 11-29-2021 Microscopic examination of blood, culture Culture Observations: NO GROWTH AT 5 DAYS. Normal [facility] Comment on above: Performed By: #### C BC #### [facility] [address] [place] [address] Dr. Lupe Evangelista Microscopic examination of blood, culture Culture Observations: NO GROWTH AT 5 DAYS. Normal [facility] Comment on above: Performed By: #### C BC #### [facility] [address] [place] [address] Dr. Lupe Evangelista PROF 14(COMP METB)on 022 Albumin [Mass/Vol] 3.5 g/dL Normal 3.4-5.0 [facility] Comment on above: Performed By: #### C RP, CMP #### [facility] [address] [place] [address] Dr. Lupe Evangelista Albumin/Globulin [Mass ratio] 0.9 {ratio} Normal [facility] Comment on above: Performed By: #### C RP, CMP #### [facility] [address] [address] [address] Lupe Evangelista ALP [Catalytic activity/Vol] 105 U/L Normal 46-116 [facility] Comment on above: Performed By: #### C RP, CMP #### [facility] [address] [place] [address] Dr. Lupe Evangelista ALT [Catalytic activity/Vol] 15 U/L Normal 14-59 [facility] Comment on above: Performed By: #### C RP, CMP #### [facility] [address] [place] [address] Dr. Lupe Evangelista Anion gap [Moles/Vol] 7.3 mmol/L Normal [facility] Comment on above: Performed By: #### C RP, CMP #### [facility] [address] [place] [address] Dr. Lupe Evangelista AST [Catalytic activity/Vol] 21 U/L Normal 15-37 [facility] Comment on above: Performed By: #### C RP, CMP #### [facility] [address] [place] [address] Dr. Lupe Evangelista Bilirubin [Mass/Vol] 0.4 mg/dL Normal 0.2-1.0 [facility] Comment on above: Performed By: #### C RP, CMP #### [facility] [address] [place] [address] Dr. Lupe Evangelista Calcium [Mass/Vol] 8.5 mg/dL Normal 8.5-10.1 [facility] Comment on above: Performed By: #### C RP, CMP #### [facility] [address] [place] [address] Dr. Lupe Evangelista Chloride [Moles/Vol] 102 mmol/L Normal 98-107 [facility] Comment on above: Performed By: #### C RP, CMP #### [facility] [address] [address] [address] Lupe Evangelista CO2 [Moles/Vol] 31.9 mmol/L Normal 21.0-32.0 [facility] Comment on above: Performed By: #### C RP, CMP #### [facility] [address] [place] [address] Dr. Lupe Evangelista Creatinine [Mass/Vol] 0.76 mg/dL Normal 0.55-1.02 [facility] Comment on above: Performed By: #### C RP, CMP #### [facility] [address] [place] [address] Dr. Lupe Evangelista EGFR-AF SWAZI >60 Normal >=60 [facility] Comment on above: Performed By: #### C RP, CMP #### [facility] [address] [place] [address] Dr. Lupe Evangelista EGFR-NON AF SWAZI >60 Normal >=60 [facility] Comment on above: Performed By: #### C RP, CMP #### [facility] [address] [place] [address] Dr. Lupe Evangelista Globulin (S) [Mass/Vol] 3.9 g/dL Normal [facility] Comment on above: Performed By: #### C RP, CMP #### [facility] [address] [place] [address] Dr. Lupe Evangelista Glucose [Mass/Vol] 92 mg/dL Normal 74-106 [facility] Comment on above: Performed By: #### C RP, CMP #### [facility] [address] [place] [address] Dr. Lupe Evangelista Potassium [Moles/Vol] 4.2 mmol/L Normal 3.5-5.1 [facility] Comment on above: Performed By: #### C RP, CMP #### [facility] [address] [place] [address] Dr. Lupe Evangelista Protein [Mass/Vol] 7.4 g/dL Normal 6.4-8.2 [facility] Comment on above: Performed By: #### C RP, CMP #### [facility] [address] [place] [address] Dr. Lupe Evangelista Sodium [Moles/Vol] 137 mmol/L Normal 136-145 [facility] Comment on above: Performed By: #### C RP, CMP #### [facility] [address] [address] [address] Lupe Evangelista Urea nitrogen [Mass/Vol] 8.0 mg/dL Normal 7.0-18.0 [facility] Comment on above: Performed By: #### C RP, CMP #### [facility] [address] [address] [address] Lupe Evangelista Urea nitrogen/Creatinine [Mass ratio] 10.5 mg/mg Normal [facility] Comment on above: Performed By: #### C RP, CMP #### [facility] [address] [place] [address] Dr. Lupe Evangelista SED RATE [facility] 2021 SED RATE 27 mm/hr Normal <=30 [facility] Comment on above: Performed By: #### S EDR #### [facility] [address] [place] [address] Dr. Lupe Evangelista XR KNEE RT 4V [...] by: HUNTER LAWRENCE Date: 2021-11-15 21:55 Normal [facility] Vital Signs Date Time Vital Sign Value Performing Clinician [place] 07-31-2023 14:30-0400 Blood Pressure Location Galileo Mcnamara [facility] 07-31-2023 14:30-0400 Diastolic blood pressure 62 mm[Hg] Galileo Mcnamara [facility] 07-31-2023 14:30-0400 Heart rate 68 /min Galileo CAMACHOL [facility] 07-31-2023 14:30-0400 Respiratory rate 16 /min Galileo CAMACHOL [facility] 07-31-2023 14:30-0400 Systolic blood pressure 120 mm[Hg] [facility] Encounter Date Encounter Type Care Provider Facility Start: 09-24-2023 End: 09-24-2023 ambulatory Galileo R MELL Facility: [facility] Start: 09-24-2023 End: 09-24-2023 Patient encounter procedure [facility] Start: 09-18-2023 End: 09-18-2023 ambulatory Galileo Cleary [facility] Work Phone: Start: 09-18-2023 End: 09-18-2023 Departed Referred MD Galileo Cleary Work Phone: [facility] Start: 09-18-2023 End: 09-18-2023 ambulatory Galileo CLEARY Facility:[id number] Start: 07-31-2023 End: 07-31-2023 ambulatory Galileo R NILRenu Facility: [facility] Start: 07-31-2023 End: 07-31-2023 Patient encounter procedure Galileo CAMACHOL [facility] Start: 07-19-2023 ambulatory Galileo CLEARY Facility:Fabricio Romero [...] Provider Fa cility 12-07-2021 SARS-CoV-2 (COVID-19 ) mRNAMUL.[id number] Galileo NILL [facility] 07-14-2021 SARS-CoV-2 mRNA (xpmrqforefi-ybpn-qalvw se) vaccine Galileo NILL [facility] 12-27-2020 SARS-CoV-2 (COVID-19 ) mRNA BNT-162b2 vax Galileo NILL [facility] 05-18-2020 SARS-CoV-2 (COVID-19 ) mRNA BNT-162b2 vax Galileo NILL [facility] Comment on above: Result Comment: 2023: [id number] 04-27-2020 SARS-CoV-2 (COVID-19 ) mRNA BNT-162b2 vax Galileo CLEARY [facility] Comment on above: Result Comment: 2023: [id number] Payers Date Payer Category Payer Self-pay [id number] Medicare [id number] 1960 Unknown [id number] 1950 Unknown [id number] 1949 Unknown [id number] 1949 Unknown [id number] 1949 Unknown [id number] 1949 Unknown [id number] 1949 Unknown [id number] 1949 Unknown [id number] 1949 Unknown [id number] Unknown Regular Insurance [id number] Unknown [id number] Worker's Compensation [employer] [facility] [id number] Social History Date Type Detail Facility Start: 07-31-2023 Tobacco smoking status Never s moked tobacco (finding) [facility] Tobacco [facility] At Female [facility] Start: 1950 Sex Assigned At Female [facility] Functional Status Date Assessment Result Facility 07-31-2023 [facility] Clinical Note 07-31-2023 Note Date & Type [...] plan excisional biopsy under local anesthesia at [facility], for definitive diagnosis and treatment; informed [...] Immunizations Vaccine Date Status Comments SARS-CoV-2 (COVID-19) mRNAMUL.[id number] 12/07/2021 Recorded SARSCoV2 mRNA(orplugheh-gnow-fqrtov) vac 07/14/2021 Recorded SARS-CoV-2 (COVID-19) mRNA BNT-162b2 vax 12/27/2020 Recorded SARS-CoV-2 (COVID-19) mRNA BNT-162b2 vax 05/18/2020 Recorded 2023-07-19: [id number] SARS-CoV-2 (COVID-19) mRNA BNT-162b2 vax 04/27/2020 Recorded 2023-07-19: [id number] [facility] Comment on above: Result Comment: Elec tronically Signed By: MELL MONGE, Galileo Roberts\Date and Time Signed: 07/31/23 15:12 EDT Evaluation + Plan note Note Date & Type Note Facility Evaluation + Plan note No data available for this section [facility] Evaluation note Note Date & Type Note Facility Evaluation note No [facility] Phone: Hospital Discharge instructions Note Date & Type Note Facility Hospital Discharge instructions No data available for this section [facility] Progress note Note Date & Type Note Facility Progress note No data available for this section [facility] Summary Purpose Family History No Family History [...] CREATED AUTHOR AUTHOR'S ORGANIZ ATION 09/24/2023 [facility] DATE CREATED AUTHOR AUTHOR'S ORGANIZ ATION 09/26/2023 [facility] Patient Care team informatio n (unrecognized [...] BE BASED ON THE PRIMARY CLINICAL RECORDS. [employer] provides no warranty or guarantee of the accuracy or completeness of information in this document.
[2024-02-13] MEDS: POTASSIUM CHLORIDE 40 MEQ in 0.9 % SODIUM CHLORIDE 250 ML 67.5 MEQ IV (13:04)
[2024-02-13 13:28] LABS: Lactate/Lactic Acid 1.4 mmol/L (0.4-2.0)
--- NOTE | 2024-02-13 14:37 | SWNOTE1 ---
Important Message from Medicare reviewed and discussed with patient. Pt. verbalized understanding and signed the form. Original given to patient and copy placed in patient?s chart.
--- NOTE | 2024-02-13 14:37 | SWNOTE1 ---
SW met with pt to discuss dc needs. Pt's son and daughter in room during assessment as well. Pt lives at home with her . Pt just returned on Saturday from visiting family in [place]. She did admit to having a fall 2 days ago, but stated the doctor was aware of her falling and hitting head. Her daughter did get her a walker and has been recommending she use it at home. Pt lives in 2 story home, but her and stay on the first floor. There is a bathroom down there and she has been sleeping in a recliner. Pt's does the driving or her daughter takes her to [employer], store, etc. Pt stated she spoke with Dr. Muller yesterday about outpt therapy. SW to check to see if it was ordered yet. Pt's plan is to return home and do outpt therapy. SW and family encouraged pt to stay active while at home. Pt voices that she does walk laps in her home (daughter and son feel otherwise), but she was in agreement to stay active and wants to do outpt therapy. SW to follow up with doctor in regards to outpt. Family did ask about test results. Advised that SW is not aware of any test results but will follow up with nursing.
[2024-02-13] MEDS: DEXAMETHASONE SOD PHOS 10 MG/ML VIAL IV (15:37)
[2024-02-13] MEDS: ONDANSETRON PF 4 MG/2 ML VIAL IV (15:44)
--- NOTE | 2024-02-13 16:03 | SWNOTE1 ---
SW reviewed therapy notes and outpt PT is recommended.
[2024-02-13] MEDS: IPRATROPIUM/ALBUTEROL SULFATE 3 ML AMPUL.NEB IH ×2 (16:38→22:15)
[2024-02-13] MEDS: LEVOFLOXACIN IN DEXTROSE 5 % 750 MG/150 ML PREMIX 100 MG IV (17:32)
[2024-02-13] MEDS: PANTOPRAZOLE SODIUM 40 MG VIAL IV (17:32)
--- NOTE | 2024-02-13 18:16 | P.HP_ITS ---
HPI H&P: HPI History of Present Illness Chief complaint: GENERAL WEAKNESS, WHITNEY, VOMITING, ELEVATED BNP Narrative: Patient seen and evaluated in the office yesterday, increasing cough and weakness. Obtain labs that came back late in the day show acute renal failure with a creatinine greater than 3 baseline creatinine of 0.79, white blood cell count also significantly elevated. With acute changes recommend patient present to the emergency room. Also had elevated BNP but I suspect this is more on the basis of the renal failure as this was a true heart failure. Negative troponin. In the ER today her creatinine is actually somewhat better at 2.73 but that still represents 345.6% above baseline. CT scan and x-ray consistent with acute bronchiectasis. With the leukocytosis she is admitted for workup and treatment of the acute renal failure as well as the acute treatment of bronchiectasis Opioid HPI Opioid Management Most Recent Pain and Opioid Data: Last Pain Scale 2 02/13/24 15:17 02/13/24 Last Pain Intensity 2 02/13/24 15:17 02/13/24 Last Pain Assessment 02/13/24 17:00 Last ORT Total Score 0 02/13/24 13:52 02/13/24 Last ORT Risk Category Low Risk 02/13/24 13:52 02/13/24 Review of Systems ROS Status of ROS 10 or more systems reviewed and unremark able except as noted in history and below [facility] Medical History Vitamin D deficiency ?E55.9 - Vitamin D deficiency, unspecified (ICD-10) Vitamin B deficiency ?E53.9 - Vitamin B deficiency, unspecified (ICD-10) Osteoporosis ?M81.0 - Age-related osteoporosis without current pathological fracture (ICD- 10) Benign neoplasm of ear ?D23.20 - Other benign neoplasm of skin of unspecified ear and external auricular canal (ICD-10) Insomnia ?G47.00 - Insomnia, unspecified (ICD-10) Gout ?M10.9 - Gout, unspecified (ICD-10) GERD (gastroesophageal reflux disease) ?K21.9 - Gastro-esophageal reflux disease without esophagitis (ICD-10) Eczema ?L30.9 - Dermatitis, unspecified (ICD-10) COPD (chronic obstructive pulmonary disease) ?J44.9 - Chronic obstructive pulmonary disease, unspecified (ICD-10) Asthma ?J45.909 - Unspecified asthma, uncomplicated (ICD-10) Surgical History History of bronchoscopy ?Z98.890 - Other specified postprocedural states (ICD-10) 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.2 - Acquired absence of lung [part of] (ICD-10) History of repair of hiatal hernia ?Z98.890 - Other specified postprocedural states (ICD-10) ?Z87.19 - Personal history of other diseases of the digestive system (ICD-10) History of lumpectomy of left breast ?Z98.890 - Other specified postprocedural states (ICD-10) History of hip surgery ?Z98.890 - Other specified postprocedural states (ICD-10) Hx of cholecystectomy ?Z90.49 - Acquired absence of other specified parts of digestive tract (ICD- 10) H/O cataract extraction ?Z98.49 - Cataract extraction status, unspecified eye (ICD-10) History of arthroplasty of right hip ?Z96.641 - Presence of right artificial hip joint (ICD-10) History of laparoscopic appendectomy ?Z90.49 - Acquired absence of other specified parts of digestive tract (ICD- 10) Family History Other Breast cancer Dementia Heart disease Social History Within the past year, how often did you have a drink containing alcohol: never Within the past year, how often did you have six or more drinks on one occasion: never Score interpretation: A score less than 3 is consistent with normal alcohol consumption. 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 Highest level of school completed/degree received: high school graduate Little interest or pleasure in doing things: not at all Feeling down, depressed, or hopeless: not at all Meds Home Medications and Allergies Home Medications ?Medication ?Instructions ?Recorded ?Confirmed ?Type colchicine 0.6 mg capsule 0.6 mg PO DAILY 08/13/23 02/13/24 History fluticasone furoate 200 1 inh inhalation DAILY 08/13/23 02/13/24 History mcg-vilanterol 25 mcg/dose inhalation powder (Breo Ellipta) lansoprazole 15 mg capsule,delayed 15 mg PO DAILY 08/13/23 02/13/24 History release oxycodone 5 mg tablet 5 mg PO DAILY PRN pain (scale 08/13/23 02/13/24 History score 4-6) albuterol sulfate 2.5 mg/3 mL 2.5 mg inhalation Q6H PRN 09/17/23 02/13/24 History (0.083 %) solution for nebulization shortness of breath or wheezing calcitonin (salmon) 200 1 spray intranasal DAILY 02/13/24 02/13/24 History unit/actuation nasal spray Allergies Allergy/AdvReac Type Severity Reaction Status Date / Time acetaminophen (From Vicodin) AdvReac Severe shortness Verified 02/13/24 10:46 of breath aspirin AdvReac Severe shortness Verified 02/13/24 10:46 of breath codeine AdvReac Severe shortness Verified 02/13/24 10:46 of breath hydrocodone (From Vicodin) AdvReac Severe shortness Verified 02/13/24 10:46 of breath morphine AdvReac Severe shortness Verified 02/13/24 10:46 of breath propoxyphene (From Darvon) AdvReac Mild shortness Verified 02/13/24 10:46 of breath Exam Constitutional Vital Signs, click to edit/add: Last Vital Signs Temp 97.4 F L 02/13/24 17:00 Pulse 85 02/13/24 18:00 Resp 15 02/13/24 17:00 BP 112/70 02/13/24 17:00 Pulse Ox 94 L 02/13/24 17:00 O2 Del Method Room Air 02/13/24 17:00 Documenting provider has reviewed patient's vital signs: yes Common normals: apparent distress (Mild conversational dyspnea that does appear, sl better than in the office ) Respiratory Common normals: abnormal respiratory effort (Mild conversational dyspnea) Effort & inspection: able to speak in complete sentences Auscultation: rhonchi and egophony Cardio Common normals: regular rate and regular rhythm GI Common normals: Normal to inspection, nondistended, normoactive bowel sounds present Results Labs Labs: Short CBC 02/13/24 Range/Units 11:01 WBC 11.4 H (4.0-11.0) 10^3/uL Hgb 12.5 (12.0-16.0) g/dL Hct 38.8 (36.0-48.0) % Plt Count 191 (150-450) 10^3/uL BMP 02/13/24 11:01 Sodium 138 Potassium 2.9 L* Chloride 98 Carbon Dioxide 28.5 BUN 48.0 H Creatinine 2.73 H Glucose 116 H Calcium 8.5 Liver Function 02/13/24 Range/Units 11:01 Total Bilirubin 0.8 (0.2-1.0) mg/dL AST 17 (15-37) U/L ALT 23 (14-59) U/L Alkaline Phosphatase 76 (46-116) U/L Albumin 3.3 L (3.4-5.0) g/dL Assessment and Plan Assessment and Plan (1) Vomiting: (2) Elevated brain natriuretic peptide (BNP) level: (3) Acute renal failure: (4) GERD (gastroesophageal reflux disease): (5) COPD (chronic obstructive pulmonary disease): (6) Asthma: Plan Admission findings: Patient with shortness of breath and weakness consistent with her acute exacerbation of her bronchiectasis and comfortably acute renal failure with a creatinine that is 100 345.6% above baseline. Acute renal failure (baseline creatinine of 0.79, admission creatinine of 2.73 which is 345.6% above baseline)-slow hydration secondary to elevated BNP although I still suspect this is not related to heart failure based on chest x- ray no peripheral edema as opposed to the acute renal failure. Still need to progress slowly. Likely take 2 to 3 days of hydration so as not to put her in heart failure of which she has a history Acute bronchiectasis with leukocytosis with a left shift consistent with a bacterial process-steroids, antibiotics, aerosol treatments and vest therapy, try to obtain sputum culture she has a history of pulmonary fungal infection as well. She could possibly benefit from bronchoscopy, but had complications with last bronchoscopy and was told to never have on again the loss is a major emergency Uncontrolled hypertension likely secondary to the above-continue with home medications and follow closely with as needed hydralazine Common bile duct dilation-no stone seen. May need MRCP, will see if eating improves with increased dose of IV Protonix Low back pain secondary to T12 compression fracture secondary to osteoporosis appears old Ovarian cyst-unusual for her age-will follow-up as an outpatient Hypokalemia-supplement IV and repeat labs in a.m. GERD-increasing dose of the Protonix to twice daily will see if that benefits her overall pain. Admission status: Acute bronchiectasis and patient with acute renal failure with baseline creatinine of 0.79, admission creatinine of 2.73 which is 345.6% above baseline, elevated BNP and history of heart failure so unable to give aggressive fluid management, medically necessary treatment will span 2 midnights. Inpatient status.
[2024-02-13] MEDS: MAGNESIUM OXIDE 400 MG TABLET PO (21:32)
[2024-02-13] MEDS: BUDESONIDE 0.5 MG/2 ML AMPULE NEB IH (22:15)
[2024-02-14] VITALS (22 sets, daily range): BP systolic 119–146; BP diastolic 60–73; PULSE 78–95; TEMP 36.4–36.8; O2SAT 93–97
[2024-02-14] MEDS: 0.9 % SODIUM CHLORIDE 1,000 ML 75 ML IV ×2 (02:43→19:25)
[2024-02-14] MEDS: IPRATROPIUM/ALBUTEROL SULFATE 3 ML AMPUL.NEB IH ×4 (04:40→22:33)
[2024-02-14 06:12] LABS: Basophils Percent Auto 0.4 % (0.2-2.0); Hemoglobin 10.7 g/dL (12.0-16.0); Immature Granulocytes Abs Auto 0.44 10^3/uL (0.00-0.03); Immature Granulocytes Pct Auto 4.6 % (0.0-0.5); Lymphocytes Absolute Auto 0.7 10^3/uL (1.2-3.8); Mean Corpuscular HGB Conc 32.4 g/dL (29.9-35.2); Mean Corpuscular Hemoglobin 25.8 pg (26.7-34.0); Mean Corpuscular Volume 79.7 fL (81.0-99.0); Monocytes Absolute Auto 0.5 10^3/uL (0.3-0.8); Monocytes Percent Auto 4.8 % (1.7-12.0); Neutrophils Percent Auto 83.2 % (43.0-75.0); Platelet Count 158 10^3/uL (150-450); Red Blood Count 4.14 10^6/uL (4.20-5.40); Red Cell Distribution Width 16.8 % (11.0-15.0); White Blood Count 9.6 10^3/uL (4.0-11.0)
[2024-02-14 06:32] LABS: Alanine Aminotransferase 19 U/L (14-59); Albumin Globulin Ratio 1.1; Albumin Level 2.7 g/dL (3.4-5.0); Alkaline Phosphatase 55 U/L (46-116); Anion Gap 13.7; Aspartate Amino Transferase 14 U/L (15-37); BUN Creatinine Ratio 18.4; Bilirubin Total 0.7 mg/dL (0.2-1.0); Carbon Dioxide 23.7 mmol/L (21.0-32.0); Chloride 106 mmol/L (98-107); Estimated GFR (African America 34 (>=60 mL/min/1.73m^2); Estimated GFR (Non-African Ame 28 (>=60 mL/min/1.73m^2); Globulin 2.4 g/dL; Glucose 170 mg/dL (74-106); Magnesium 1.4 mg/dL (1.8-2.4); Potassium 3.4 mmol/L (3.5-5.1); Sodium 140 mmol/L (136-145); Total Protein 5.1 g/dL (6.4-8.2)
--- NOTE | 2024-02-14 08:05 | P.PN_ITS ---
Progress Note: Subjective Subjective Interval history: Significant cough persisting. Nausea is improved. Exam Constitutional Vital Signs, click to edit/add: Last Vital Signs Temp 98.0 F 02/14/24 07:52 Pulse 87 02/14/24 07:52 Resp 14 02/14/24 07:52 BP 128/72 02/14/24 07:52 Pulse Ox 94 L 02/14/24 07:52 O2 Del Method Room Air 02/14/24 07:52 Documenting provider has reviewed patient's vital signs: yes Common normals: apparent distress (Mild conversational dyspnea that does appear, sl better than in the office ) Respiratory Common normals: abnormal respiratory effort (Mild conversational dyspnea) Effort & inspection: able to speak in complete sentences Auscultation: rhonchi (Unchanged) and egophony (Unchanged) Cardio Common normals: regular rate and regular rhythm GI Common normals: Normal to inspection, nondistended, normoactive bowel sounds present and soft to palpation; tender Palpation: tender Details: epigastric Progress Note: Objective Labs Labs: Short CBC 02/13/24 02/14/24 Range/Units 11:01 05:32 WBC 11.4 H 9.6 (4.0-11.0) 10^3/uL Hgb 12.5 10.7 L (12.0-16.0) g/dL Hct 38.8 33.0 L (36.0-48.0) % Plt Count 191 158 (150-450) 10^3/uL BMP 02/13/24 02/14/24 11:01 05:32 Sodium 138 140 Potassium 2.9 L* 3.4 L Chloride 98 106 Carbon Dioxide 28.5 23.7 BUN 48.0 H 33.0 H Creatinine 2.73 H 1.79 H Glucose 116 H 170 H Calcium 8.5 8.0 L Liver Function 02/13/24 02/14/24 Range/Units 11:01 05:32 Total Bilirubin 0.8 0.7 (0.2-1.0) mg/dL AST 17 14 L (15-37) U/L ALT 23 19 (14-59) U/L Alkaline Phosphatase 76 55 (46-116) U/L Albumin 3.3 L 2.7 L (3.4-5.0) g/dL Progress Note: A&P Assessment and Plan (1) Vomiting: (2) Elevated brain natriuretic peptide (BNP) level: (3) Acute renal failure: (4) GERD (gastroesophageal reflux disease): (5) COPD (chronic obstructive pulmonary disease): (6) Asthma: Plan Admission findings: Patient with shortness of breath and weakness consistent with her acute exacerbation of her bronchiectasis and comfortably acute renal failure with a creatinine that is 100 345.6% above baseline. Acute renal failure (baseline creatinine of 0.79, admission creatinine of 2.73 which is 345.6% above baseline)-slow hydration secondary to elevated BNP although I still suspect this is not related to heart failure based on chest x- ray no peripheral edema as a true heart failure. Still need to slow IV hydration secondary to the history of heart failure in the past. Creatinine is improved but still greater than 200% above baseline L Acute bronchiectasis with leukocytosis with a left shift consistent with a bacterial process-steroids, antibiotics, aerosol treatments and vest therapy, try to obtain sputum culture she has a history of pulmonary fungal infection as well. Overall somewhat improved. Continue with current treatment plan Uncontrolled hypertension likely secondary to the above-improved Common bile duct dilation-no stone seen. Abdominal pain improving Low back pain secondary to T12 compression fracture secondary to osteoporosis appears old-maintain current treatment plan Ovarian cyst-unusual for her age-will follow-up as an outpatient Hypokalemia-supplement IV and repeat labs in a.m.-improved today, oral agents to supplement EMEA-continue supplementation Anemia-possibly acute blood loss anemia, her baseline is 12, she is down to 10 today, check occult blood GERD-increasing dose of the Protonix to twice daily will see if that benefits her overall pain. Admission status: Acute bronchiectasis and patient with acute renal failure with baseline creatinine of 0.79, admission creatinine of 2.73 which is 345.6% above baseline, elevated BNP and history of heart failure so unable to give aggressive fluid management, medically necessary treatment will span 2 midnights. Inpatient status.
[2024-02-14] MEDS: DEXAMETHASONE SOD PHOS 10 MG/ML VIAL IV (09:57)
[2024-02-14] MEDS: COLCHICINE 0.6 MG TABLET PO (09:57)
[2024-02-14] MEDS: MAGNESIUM OXIDE 400 MG TABLET PO ×2 (09:58→21:28)
[2024-02-14] MEDS: PANTOPRAZOLE SODIUM 40 MG VIAL IV ×2 (09:58→21:28)
[2024-02-14] MEDS: POTASSIUM CHLORIDE 10 MEQ ER TABLET PO ×2 (09:58→21:28)
[2024-02-14] MEDS: MAGNESIUM SULFATE IN WATER 4 GM/100 ML PIGGYBACK IV (10:00)
[2024-02-14] MEDS: ONDANSETRON PF 4 MG/2 ML VIAL IV (10:08)
[2024-02-14] MEDS: BUDESONIDE 0.5 MG/2 ML AMPULE NEB IH ×2 (11:04→22:33)
[2024-02-14 11:08] LABS: Internal Control Within Normal Limits; Occult Blood Negative
--- NOTE | 2024-02-14 11:13 | RESP.RT ---
patient states chest vest is painful & wanted to do the PEP instead
--- NOTE | 2024-02-14 11:56 | PT.DAILY ---
Physical Therapy Daily Note PT Daily Note/Assess Start: 02/13/24 15:16 Freq: Status: Active Protocol: Document 02/14/24 11:53 CONSTANCE (Rec: 02/14/24 11:56 CONSTANCE [id number]) Physical Therapy Daily Note/Assessment Time In/Time Out Time In 11:40 Time Out 11:50 Pain In Pain N/A Pain Out Pain N/A Subjective Subjective Pt sitting in BS chair upon arrival. Reports she just ordered lunch but agrees to a walk and needs to use restroom . Therapeutic Activity Time Therapeutic Activity Minutes (minutes) 9 Therapeutic Activity Units 1 Therapeutic Activity Treatment Chair Transfer Ability Moderate Assist Therapeutic Activity Comments Sit>stand ModA from low bedside chair. Vc need to scoot to edge and push from armrest. Pt amb with RW 90' CGA and assist for IV pole. Pt enters restroom. Able to pull pants down then descend to toilet using grab bar - SBA. Completes pericare without assistance. Sit>stand ModA. Pts lunch arrives while using restroom. Pt static stand at sink to wash hands without LOB amb 20' to BS chair. Call light in reach and needs met. Total Physical Therapy Time Total Therapy Minutes 9 Total Physical Therapy Units 1 Summary Daily Note Summary Improved gait endurance. no LOB with static or dynamic standing today
--- NOTE | 2024-02-14 12:10 | SWNOTE1 ---
ARDIANA reached out to Dr. Muller about pt getting outpt therapy. Doctor in agreement. ADRIANA sent order for doctor to sign.
--- NOTE | 2024-02-14 14:09 | SWNOTE1 ---
SW received the signed order for outpt therapy from doctor. SW faxed the order to outpt rehab services. SW provided pt with the order and advised her to call outpt services if she does not hear anything by Saturday or Saturday. Pt voiced understanding. SW provided her with number for outpt therapy.
[2024-02-14] MEDS: LEVOFLOXACIN IN DEXTROSE 5 % 750 MG/150 ML PREMIX 100 MG IV (16:57)
--- NOTE | 2024-02-14 17:07 | RESP.RT ---
chest vest not done due to it being painful to patient
--- NOTE | 2024-02-14 19:25 | NUTR.NU ---
Pt was admitted to [facility] w/dx AKF, WHITNEY, and N/V (now resolved). Renal function appears to be improving per labs; will monitor need for Renal diet. Pt currently has regular diet order w/fair PO intakes. She refuses Ensure d/t dislike. BLE edema continues. Provided diet education including handouts: Planning healthy meals and reducing sodium. Recommend small, frequent meals and snacks throughout the day to reduce GI distress. Encouraged pt to reach out to Dietitian with questions or concerns. Will continue to follow PRN.
[2024-02-14 20:03] LABS: Bilirubin Urine NEGATIVE (NEGATIVE); Blood Urine NEGATIVE (NEGATIVE); Clarity Urine CLEAR (CLEAR); Color Urine LT. YELLOW (YELLOW); Glucose Urine UA 250 mg/dL (NEGATIVE); Ketones Urine NEGATIVE (NEGATIVE); Leukocyte Esterase Urine NEGATIVE (NEGATIVE); Nitrite Urine NEGATIVE (NEGATIVE); Protein Urine NEGATIVE (NEG/TRACE); Urobilinogen Urine 0.2 EU/dL (0.2-1.0); pH Urine 5.5 (5.0-9.0)
[2024-02-14 20:08] LABS: Urine Microscopic Indicated NO
[2024-02-15] VITALS (8 sets, daily range): BP systolic 121–137; BP diastolic 69–72; PULSE 75–88; TEMP 36.6–36.7; O2SAT 96
[2024-02-15 06:04] LABS: Hematocrit 29.3 % (36.0-48.0); Hemoglobin 9.5 g/dL (12.0-16.0); Mean Corpuscular HGB Conc 32.4 g/dL (29.9-35.2); Mean Corpuscular Volume 80.3 fL (81.0-99.0); Mean Platelet Volume 13.8 fL (9.5-13.5); Platelet Count 150 10^3/uL (150-450); Red Blood Count 3.65 10^6/uL (4.20-5.40); Red Cell Distribution Width 17.2 % (11.0-15.0); White Blood Count 10.2 10^3/uL (4.0-11.0)
[2024-02-15 06:23] LABS: Alanine Aminotransferase 20 U/L (14-59); Albumin Level 2.2 g/dL (3.4-5.0); Alkaline Phosphatase 70 U/L (46-116); Anion Gap 12.1; Aspartate Amino Transferase 13 U/L (15-37); BUN Creatinine Ratio 15.7; Bilirubin Total 0.4 mg/dL (0.2-1.0); Calcium 7.9 mg/dL (8.5-10.1); Carbon Dioxide 24.8 mmol/L (21.0-32.0); Chloride 109 mmol/L (98-107); Estimated GFR (African America 53 (>=60 mL/min/1.73m^2); Estimated GFR (Non-African Ame 43 (>=60 mL/min/1.73m^2); Globulin 2.3 g/dL; Glucose 137 mg/dL (74-106); Magnesium 2.3 mg/dL (1.8-2.4); Potassium 3.9 mmol/L (3.5-5.1); Sodium 142 mmol/L (136-145); Total Protein 4.5 g/dL (6.4-8.2)
[2024-02-15 06:45] LABS: Band Neutrophils Absolute 0.1 10^3/uL (0.0-0.3); Lymphocytes Absolute Manual 1.12 10^3/uL (1.20-3.80); Monocytes Absolute Manual 1.22 10^3/uL (0.30-0.80); Segmented Neut Absolute Manual 7.75 10^3/uL (1.4-6.5)
--- NOTE | 2024-02-15 07:50 | P.DS_ITS ---
DS: Providers Provider Date of admission: 02/13/24 13:25 Primary care physician: Zack Muller MD Consults: 02/13/24 Consult to Dietitian Routine Reason for consultation: Loss of appetite and unintentional weightloss Has provider been notified: No 02/13/24 12:45 Occupational Therapy Eval and Treat Routine Reason for consultation: Only if needed for Rehab Has provider been notified: No Physical Therapy Eval and Treat Routine Reason for consultation: Eval and Treat Has provider been notified: No DS: Diagnosis Discharge Diagnosis (1) Vomiting: (2) Elevated brain natriuretic peptide (BNP) level: (3) Acute renal failure: (4) GERD (gastroesophageal reflux disease): (5) COPD (chronic obstructive pulmonary disease): (6) Asthma: Plan Admission findings: Patient with shortness of breath and weakness consistent with her acute exacerbation of her bronchiectasis and comfortably acute renal failure with a creatinine that is 100 345.6% above baseline. Acute renal failure (baseline creatinine of 0.79, admission creatinine of 2.73 which is 345.6% above baseline)-slow hydration secondary to elevated BNP although I still suspect this is not related to heart failure based on chest x- ray no peripheral edema as a true heart failure. Still need to slow IV hydration secondary to the history of heart failure in the past. Creatinine is improved but still greater than 200% above baseline Acute bronchiectasis with leukocytosis with a left shift consistent with a bacterial process-steroids, antibiotics, aerosol treatments and vest therapy, try to obtain sputum culture she has a history of pulmonary fungal infection as well. Overall somewhat improved. Continue with current treatment plan Uncontrolled hypertension likely secondary to the above-improved Common bile duct dilation-no stone seen. Abdominal pain improving Low back pain secondary to T12 compression fracture secondary to osteoporosis appears old-maintain current treatment plan Ovarian cyst-unusual for her age-will follow-up as an outpatient Hypokalemia-supplement IV and repeat labs in a.m.-improved today, oral agents to supplement EMEA-continue supplementation Anemia-possibly acute blood loss anemia, her baseline is 12, she is down to 10 today, check occult blood GERD-increasing dose of the Protonix to twice daily will see if that benefits her overall pain. Admission status: Acute bronchiectasis and patient with acute renal failure with baseline creatinine of 0.79, admission creatinine of 2.73 which is 345.6% above baseline, elevated BNP and history of heart failure so unable to give aggressive fluid management, medically necessary treatment will span 2 midnights. Inpatient status. ? DS: Summary Hospital Course Hospital Course: Seen and evaluated in the office with nausea vomiting. Labwork obtained as an outpatient showed elevated BNP but also significantly elevated creatinine that was almost 400% above baseline. Patient was referred to ER for admission. In ER creatinine was still over 300% above baseline, because of her history of heart failure and the elevated BNP although she showed no overt signs of heart failure, she was given slow IV hydration. She also was found to have acute exacerbation of her chronic bronchiectasis. She was treated with IV antibiotics, IV steroids. Still trying to obtain sputum culture. She is able to eat this morning. With the creatinine 50% still above baseline but patient feel improved and able to tolerate diet will be discharged to home in improving condition. Medications see list. Follow-up with me in the office in 2 days. Time Spent with Patient Time attestation: Total time spent providing and/or coordinating discharge services: Exam Constitutional Vital Signs, click to edit/add: Last Vital Signs Temp 98.1 F 02/15/24 05:31 Pulse 77 02/15/24 06:00 Resp 18 02/15/24 05:31 BP 121/69 02/15/24 05:31 Pulse Ox 96 02/15/24 05:31 O2 Del Method Room Air 02/15/24 05:31 Documenting provider has reviewed patient's vital signs: yes Common normals: apparent distress (Mild conversational dyspnea that does appear, sl better than in the office ) Respiratory Common normals: abnormal respiratory effort (Mild conversational dyspnea) Effort & inspection: able to speak in complete sentences Auscultation: rhonchi (Unchanged) and egophony (Unchanged) Cardio Common normals: regular rate and regular rhythm GI Common normals: Normal to inspection, nondistended, normoactive bowel sounds present and soft to palpation; tender Palpation: tender Details: epigastric DS: Data Data Completed and Pending Labs on day of discharge: Labs from last 24 hours 02/15/24 02/14/24 02/14/24 05:44 19:30 10:43 WBC 10.2 RBC 3.65 L Hgb 9.5 L Hct 29.3 L MCV 80.3 L MCH 26.0 L MCHC 32.4 RDW 17.2 H Plt Count 150 MPV 13.8 H Seg Neuts % (Manual) 76.0 H Band Neutrophils % 1.0 Lymphocytes % (Manual) 11.0 L Monocytes % (Manual) 12.0 Eosinophils % (Manual) 0.0 L Basophils % (Manual) 0.0 L Neutrophils # (Manual) 7.75 H Band Neutrophils # 0.1 Lymphocytes # (Manual) 1.12 L Monocytes # (Manual) 1.22 H Eosinophils # (Manual) 0.00 Basophils # (Manual) 0.00 Sodium 142 Potassium 3.9 Chloride 109 H Carbon Dioxide 24.8 Anion Gap 12.1 BUN 19.0 H Creatinine 1.21 H Est GFR ( Amer) 53 L Est GFR (Non-Af Amer) 43 L BUN/Creatinine Ratio 15.7 Glucose 137 H Calcium 7.9 L Magnesium 2.3 Total Bilirubin 0.4 AST 13 L ALT 20 Alkaline Phosphatase 70 Total Protein 4.5 L Albumin 2.2 L Globulin 2.3 Albumin/Globulin Ratio 1.0 Urine Color Lt. yellow Urine Clarity Clear Urine pH 5.5 Ur Specific Hammond 1.020 Urine Protein Negative Urine Glucose (UA) 250 A Urine Ketones Negative Urine Occult Blood Negative Urine Nitrite Negative Urine Bilirubin Negative Urine Urobilinogen 0.2 Ur Leukocyte Esterase Negative Stool Occult Blood Negative Discharge Plan Discharge Disposition: Home, Self-Care Condition: Fair Discharge Medications: New prednisone 10 mg tablet 50 mg PO DAILY Qty: 47 0RF Rx Instructions: 5/day for 3 days. 4/day for 3 days, 3/day for 3 days, 2/day for 3 days, 1/day for 3 days, 1/2 /day for 4 days ciprofloxacin HCl [Cipro] 500 mg tablet 500 mg PO BID Qty: 14 0RF pantoprazole [Protonix] 40 mg tablet,delayed release (DR/EC) 40 mg PO BID Qty: 60 11RF Continued calcitonin (salmon) 200 unit/actuation spray,non-aerosol 1 spray intranasal DAILY fluticasone furoate-vilanterol [Breo Ellipta] 200-25 mcg/dose blister with device 1 inh inhalation DAILY colchicine 0.6 mg capsule 0.6 mg PO DAILY oxycodone 5 mg tablet 5 mg PO DAILY PRN (Reason: pain (scale score 4-6)) albuterol sulfate 2.5 mg /3 mL (0.083 %) solution for nebulization 2.5 mg inhalation Q6H PRN (Reason: shortness of breath or wheezing) Discontinued lansoprazole 15 mg capsule,delayed release(DR/EC) 15 mg PO DAILY Print Language: Israeli Forms: Portal Instructions
[2024-02-15] MEDS: COLCHICINE 0.6 MG TABLET PO (09:29)
[2024-02-15] MEDS: POTASSIUM CHLORIDE 10 MEQ ER TABLET PO (09:29)
[2024-02-15] MEDS: MAGNESIUM OXIDE 400 MG TABLET PO (09:29)
[2024-02-15] MEDS: PANTOPRAZOLE SODIUM 40 MG VIAL IV (09:32)
[2024-02-15] MEDS: DEXAMETHASONE SOD PHOS 10 MG/ML VIAL IV (09:32)
--- NOTE | 2024-02-17 13:39 | CM.DCFOLLOWU ---
Person spoke with:patient How are you feeling?well, legs are swollen, but goes to PCP today How is your pain?none Did you understand your discharge instructions?yes Do you have any questions about your discharge instructions?no Were you given any prescriptions at discharge?yes Were you able to get your prescriptions filled?yes Do you understand how to take your medications as ordered?yes Do you have any questions about your follow up appointment and do you plan to keep your follow up appointment? no questions, has follow up today with PCP Is there anything else that you would like to discuss?no Questions/Comments/Concerns/Other:none
== END 2024-02-15 10:46 | disposition home or self-care (01) | DRG 683 ==
LOC: ER 13:01 → MS 13:31
PROVIDERS: Admitting Provider Family Medicine; Emergency Provider Emergency Medicine; PCP Family Medicine; Visit Provider Family Medicine
DX: N17.9 Acute kidney failure, unspecified (principal); J47.1 Bronchiectasis with (acute) exacerbation; M80.08XA Age-related osteoporosis with current pathological fracture, vertebra(e), initial encounter for fracture; E87.6 Hypokalemia; K21.9 Gastro-esophageal reflux disease without esophagitis; N83.202 Unspecified ovarian cyst, left side; R53.83 Other fatigue; D64.9 Anemia, unspecified; E03.9 Hypothyroidism, unspecified; J45.909 Unspecified asthma, uncomplicated; R53.1 Weakness; I11.0 Hypertensive heart disease with heart failure; D72.829 Elevated white blood cell count, unspecified; I50.9 Heart failure, unspecified; Z98.890 Other specified postprocedural states; E44.0 Moderate protein-calorie malnutrition; Z68.22 Body mass index [BMI] 22.0-22.9, adult; Z90.2 Acquired absence of lung [part of]; Z90.49 Acquired absence of other specified parts of digestive tract; Z96.641 Presence of right artificial hip joint
CPT/HCPCS: 36415; 71045; 71046; 74176; 80053; 81003; 83540; 83605; 83690; 83735; 83880; 84436; 84443; 84481; 84484; 85007; 85025; 85027; 85610; 93005; 94640; 94667; 94668; 94761; 96365; 97161; 97165; 97530; 97535; 99285; G0328; J1100; J1956; J2405; J3475; J3480

== ENCOUNTER 2024-02-24 10:07 | Outpatient (OUT) | payer MEDICARE, OTHER, SELFPAY ==
--- NOTE | 2024-02-24 | US_ITS ---
The [address] [address] Patient Name: DARRYL ZAYAS MRN: [id number] date: 1950 Sex: F Assigned Patient Location: [facility] Current Patient Location: Accession/Order Number: [id number] Exam Date: 02/24/2024 11:30 Report Date: 02/25/2024 04:46 At the request of: VELMA WATKINS Procedure: US venous doppler LE BI EXAMINATION: US venous doppler LE BI HISTORY: EDEMA COMPARISON: No relevant comparison available. FINDINGS: REGION: Bilateral lower extremities THROMBI: None. COMPRESSIBILITY: Normal compressibility. FLOW: Normal waveform and antegrade flow between 5 and 20 cm/s. OTHER: Subcutaneous edema. US/US venous doppler LE BI IMPRESSION: 1. No deep vein thrombus within the right or left lower extremity. 2. Evaluation of calf veins is slightly limited due to prominent subcutaneous edema. Electronically authenticated by: MARYBETH MORALES Date: 02/25/2024 04:46
--- OUTSIDE RECORDS SUMMARY | 2024-02-24 10:26 | XMS_ITS | CCD ---
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 Name Role Phone NAYY ., DR CARREON [...] Care Physician MD Galileo Cleary Attending Provider [phone] Galileo Cleary Attending Unavailable Nill, Galileo Jarrett Admitting Unavailable NILL, Galileo Jarrett Attending Unavailable NILL, Galileo Jarrett Attending Unavailable HoyVelma Referring Unavailable NILLGalileo Attending Unavailable Allergies Allergy Classification Reported Allergen(s) Allergy Type Date of Onset Reaction(s) Facility (3 sources) Aspirin; Translations: [aspirin] Drug Allergy 4 Difficulty Breathing [facility] Repository (3 sources) Codeine; Translations: [codeine] Drug Allergy 8 Difficulty Breathing [facility] Repository (3 sources) Morphine; Translations: [morphine] Drug Allergy 9 Difficulty Breathing [facility] Repository (2 sources) Propoxyphene; Translations: [Darvon] Drug Allergy 3 [facility] Repository (1 source) Sulfamethoxazole / Trimethoprim Drug Allergy 3 [facility] (3 sources) Acetaminophen / HYDROcodone; Translations: [acetaminophen-hydro codone] Drug Allergy Dyspnea (finding) [facility] (2 sources) Aspirin; Translations: [aspirin] Drug Allergy Dyspnea (finding) [facility] (2 sources) Codeine; Translations: [codeine] Drug Allergy Dyspnea (finding) [facility] (2 sources) Morphine; Translations: [morphine] Drug Allergy Dyspnea (finding) [facility] (3 sources) Propoxyphene; Translations: [propoxyphene] Drug Allergy 9 Dyspnea (finding) [facility] (2 sources) Sulfamethoxazole; Translations: [sulfamethoxazole] Drug Allergy 9 Difficulty Breathing [facility] (2 sources) Trimethoprim; Translations: [trimethoprim] Drug Allergy 9 Difficulty Breathing [facility] (1 source) Aspirin Drug Allergy 9 [facility] (1 source) Codeine Drug Allergy 9 [facility] (1 source) Morphine Drug Allergy 9 [facility] (1 source) Propoxyphene Drug Allergy 9 [facility] Medications Current Medications Medication Drug [...] sources) Calcitonin Start: 05-26-2018 End: 06-02-2018 Calcitonin (Tobyhanna) Active 1 SPRAYS NASAL Daily 2.7 30 [...] for choosing us for your care. [facility] General Surgery Office/Clini c Noteon 09-24-2023 General [...] Immunizations Vaccine Date Status Comments SARS-CoV-2 (COVID-19) mRNAMUL.[id number] 12/07/2021 Recorded SARSCoV2 mRNA(ckxciriji-kapg-inwmq s) vac 07/14/2021 Recorded SARS-CoV-2 (COVID-19) mRNA BNT-162b2 vax 12/27/2020 Recorded SARS-CoV-2 (COVID-19) mRNA BNT-162b2 vax 05/18/2020 Recorded 2023-07-19: TPV70 SARS-CoV-2 (COVID-19) mRNA BNT-162b2 vax 04/27/2020 Recorded 2023-07-19: TPV70 [facility] Comment on above: Result Comment: Elec tronically Signed By: MELL MONGE, Galileo Agrawalbr\Date and Time Signed: 09/24/23 14:47 EDT Cruz 09-18-2023 L Specimen: [id number] Received: 09/19/23 Status: KISHAN Garnett Num: [id number] Spec Type: Surgical Subm Dr: Galileo Cleary MD FACS Tissues: A Soft Tissue/Surgical Margin-Other than Tumor,Mass,Lip or Angella (RT EAR) Procedures: HE/4, Gross/Micro L4 Age/ Patient Sex Location Account Attending Physician Ilana Moore 73/F [place] [id number] Galileo Cleary MD FACS SPEC NUM: [id number] RECD: 09/19/23 STATUS: INGRIDNicole GARNETT NUM: [id number] MARCO: 09/18/23-[address]: Galileo Cleary MD FACS ENTERED: 09/19/23-12[address] [facility] DR: Con Romero SPEC TYPE: Surgical DEPT: [...] bisected and entirely submitted in A1. Specimen: [id number] Received: 09/19/23 Status: KISHAN Tamir Num: [id number] Spec Type: Surgical Subm Dr: Galileo Cleary MD FACS Tissues: A Soft Tissue/Surgical Margin-Other than Tumor,Mass,Lip or Angella (RT EAR) Procedures: HE/Melissa, Gross/Micro L4 Patient: OscarIlana L [id number] (Continued) Specimen: [id number] Received: 09/19/23 (Continued) Signed (signature on file) Cookie Evangelista MD 09/23/23 1129 Specimen: [id number] Received: 09/19/23 Status: KISHAN Coxalisha Num: [id number] Spec Type: Surgical Subm Dr: Galileo Cleary MD FACS Tissues: A Soft Tissue/Surgical Margin-Other than Tumor,Mass,Lip or Angella (RT EAR) Procedures: CLAUDE/Melissa, Gross/Micro L4 Patient: Ilana Moore [id number] (Continued) Specimen: [id number] Received: 09/19/23 (Continued) CPT Codes 52440 Specimen: [id number] Received: 09/19/23 Status: KISHAN Garnett Num: [id number] Spec Type: Surgical Subm Dr: Galileo Cleary MD FACS Tissues: A Soft Tissue/Surgical Margin-Other than Tumor,Mass,Lip or Angella (RT EAR) Procedures: /Melissa, Gross/Micro L4 Patient: Ilana Moore [id number] (Continued) Signed (signature on file) Cookie Evangelista MD 09/23/23 1129 Normal [facility] Consent for Procedure/Surger yon 08-02-2023 Consent for Procedure/Surgery [id number]#1.00TIFF [facility] Facesheeton 08-01-2023 Facesheet [id number] [facility] Ambulatory Visit Summaryon 0 07-31-2023 Ambulatory [...] for choosing us for your care. [facility] MG MAMM SCREEN 3D ALLEN CADon 05-14-2022 MG MAMM SCREEN 3D ALLEN CAD Patient: ILANA MOORE Exam Date: 05/14/2022 : 1950 Gender:F Ordering : DR VELMA MULLER . Admission #: [id number] Family : Order #: [id number] CLICK HERE TO VIEW EXAM RADIOLOGY REPORT [...] liver cancer at age 66. LOCATION: [facility] BREAST COMPOSITION: Scattered areas fibroglandular [...] M.D. on 05/16/2022 at 13:19 Normal [facility] INSULINon 02-08-2022 Insulin 6.6 uIU/mL Normal 2.6-24.9 [facility] Comment on above: Performed By: #### C BC #### [facility] [address] [place] [address] Dr. Lupe Evangelista CBC AUTO DIFFon 02-07-2022 BASO # 0.1 103/ul Normal 0.0-0.1 [facility] Comment on above: Performed By: #### C BC #### [facility] [address] [place] [address] Dr. Lupe Evangelista Basophils/100 WBC (Bld) 0.7 % Normal 0.2-2.0 [facility] Comment on above: Performed By: #### C BC #### [facility] [address] [place] [address] Dr. Lupe Evangelista EO # 0.4 103/ul Normal 0.0-0.7 [facility] Comment on above: Performed By: #### C BC #### [facility] [address] [place] [address] Dr. Lupe Evangelista Eosinophils/100 WBC (Bld) 5.4 % Normal 0.9-7.0 [facility] Comment on above: Performed By: #### C BC #### [facility] [address] [place] [address] Dr. Lupe Evangelista Erythrocyte distribution width (RBC) [Ratio] 15.9 % Critically high 11.0-15.0 [facility] Comment on above: Performed By: #### C BC #### [facility] [address] [place] [address] Dr. Lupe Evangelista Hematocrit (Bld) [Volume fraction] 39.8 % Normal 36.0-48.0 [facility] Comment on above: Performed By: #### C BC #### [facility] [address] [place] [address] Dr. Lupe Evangelista Hemoglobin (Bld) [Mass/Vol] 11.6 g/dL Critically low 12.0-16.0 [facility] Comment on above: Performed By: #### C BC #### [facility] [address] [address] [address] Lupe Evangelista IG # 0.02 10e3/ul Normal 0.00-0.03 [facility] Comment on above: Performed By: #### C BC #### [facility] [address] [address] [address] Lupe Evangelista IG % 0.2 % Normal 0.0-0.5 [facility] Comment on above: Performed By: #### C BC #### [facility] [address] [place] [address] Dr. Lupe Evangelista LYMPH # 2.9 103/ul Normal 1.2-3.8 [facility] Comment on above: Performed By: #### C BC #### [facility] [address] [place] [address] Dr. Lupe Evangelista Lymphocytes/100 WBC (Bld) 35.2 % Normal 20.5-60.0 [facility] Comment on above: Performed By: #### C BC #### [facility] [address] [place] [address] Dr. Lupe Evangelista MANUAL DIFF REQ NO Normal [facility] Comment on above: Performed By: #### C BC #### [facility] [address] [place] [address] Dr. Lupe Evangelista MCH (RBC) [Entitic mass] 23.4 pg Critically low 26.7-34.0 [facility] Comment on above: Performed By: #### C BC #### [facility] [address] [place] [address] Dr. Lupe Evangelista MCHC (RBC) [Mass/Vol] 29.1 g/dL Critically low 29.9-35.2 [facility] Comment on above: Performed By: #### C BC #### [facility] [address] [place] [address] Dr. Lupe Evangelista MCV (RBC) [Entitic vol] 80.4 fL Critically low 81.0-99.0 [facility] Comment on above: Performed By: #### C BC #### [facility] [address] [place] [address] Dr. Lupe Evangelista MONO # 0.8 103/ul Normal 0.3-0.8 [facility] Comment on above: Performed By: #### C BC #### [facility] [address] [place] [address] Dr. Lupe Evangelista Monocytes/100 WBC (Bld) 9.8 % Normal 1.7-12.0 [facility] Comment on above: Performed By: #### C BC #### [facility] [address] [place] [address] Dr. Lupe Evangelista NEUT # 4.0 103/ul Normal 1.4-6.5 [facility] Comment on above: Performed By: #### C BC #### [facility] [address] [place] [address] Dr. Lupe Evangelista Neutrophils/100 WBC (Bld) 48.7 % Normal 43.0-75.0 [facility] Comment on above: Performed By: #### C BC #### [facility] [address] [place] [address] Dr. Lupe Evangelista Platelet mean volume (Bld) [Entitic vol] 11.0 fL Normal 9.5-13.5 [facility] Comment on above: Performed By: #### C BC #### [facility] [address] [place] [address] Dr. Lupe Evangelista PLT 341 103/ul Normal 150-450 [facility] Comment on above: Performed By: #### C BC #### [facility] [address] [place] [address] Dr. Lupe Evangelista RBC 4.95 106/ul Normal 4.20-5.40 [facility] Comment on above: Performed By: #### C BC #### [facility] [address] [place] [address] Dr. Lupe Evangelista WBC 8.2 103/ul Normal 4.0-11.0 [facility] Comment on above: Performed By: #### C BC #### [facility] [address] [place] [address] Dr. Lupe Evangelista FREE THYROXINE INDEX T7on FTI 1.98 Normal 1.30-4.50 [facility] Comment on above: Performed By: #### C BC #### [facility] [address] [address] [address] Lupe Evangelista T3U 31.0 % Normal 30.0-39.0 [facility] Comment on above: Performed By: #### C BC #### [facility] [address] [address] [address] Lupe Evangelista T4 [Mass/Vol] 6.40 ug/dL Normal 4.80-13.90 [facility] Comment on above: Performed By: #### C BC #### [facility] [address] [place] [address] Dr. Lupe Evangelista GLYCOHEMOGLOBIN A1Con 2021 ADA RECOMMENDATION SEE BELOW Normal [facility] Comment on above: Result Comment: ADA RECOMMENDED LIMIT 4.0 - 6.0 ADA THERAPEUTIC TARGET < 7.0 ACTION SUGGESTED > 7.0 Performed By: #### C BC #### [facility] [address] [place] [address] Dr. Lupe Evangelista Glucose [Mass/Vol] 128 mg/dL Normal [facility] Comment on above: Performed By: #### C BC #### [facility] [address] [place] [address] Dr. Lupe Evangelista HbA1c (Bld) [Mass fraction] 6.1 % Normal 4.5-6.2 [facility] Comment on above: Performed By: #### C BC #### [facility] [address] [place] [address] Dr. Lupe Evangelista IRONon 02-07-2022 Iron [Mass/Vol] 44.0 ug/dL Critically low 50.0-170.0 [facility] Comment on above: Performed By: #### I DINO JACOBO #### [facility] [address] [place] [address] Dr. Lupe Evangelista LIPID PROFILEon 02-07-2022 CHOL-HDL RATIO NORM SEE BELOW Normal [facility] Comment on above: Result Comment: 3.3 - 4.4 LOW RISK 4.4 - 7.1 AVERAGE RISK 7.1 - 11.0 MODERATE RISK >11.0 HIGH RISK Performed By: #### C BC #### [facility] [address] [place] [address] Dr. Lupe Evangelista Cholesterol [Mass/Vol] 217 mg/dL Critically high <=200 [facility] Comment on above: Performed By: #### C BC #### [facility] [address] [place] [address] Dr. Lupe Evangelista Cholesterol in HDL [Mass/Vol] 60 mg/dL Normal 40-60 [facility] Comment on above: Performed By: #### C BC #### [facility] [address] [place] [address] Dr. Lupe Evangelista Cholesterol in LDL [Mass/Vol] 136.0 mg/dL Normal [facility] Comment on above: Performed By: #### C BC #### [facility] [address] [place] [address] Dr. Lupe Evangelista Cholesterol.total/C holesterol in HDL [Mass ratio] 3.6 {ratio} Normal [facility] Comment on above: Performed By: #### C BC #### [facility] [address] [place] [address] Dr. Lupe Evangelista HDL NORMAL > or = 60 mg/dl - LO W CARDIOVASCULAR RISK <40 mg/dl - HIGH CARDIOVASCULAR RISK Normal [facility] Comment on above: Performed By: #### C BC #### [facility] [address] [place] [address] Dr. Lupe Evangelista LDL CALC NORMAL SEE BELOW Normal [facility] Comment on above: Result Comment: <100 mg/dl OPTIMAL 100 - 129 mg/dl NEAR OR ABOVE OPTIMAL 130 - 159 mg/dl BORDERLINE HIGH 160 - 189 mg/dl HIGH >190 mg/dl VERY HIGH Performed By: #### C BC #### [facility] [address] [place] [address] Dr. Lupe Evangelista Triglyceride [Mass/Vol] 105 mg/dL Normal <=150 [facility] Comment on above: Performed By: #### C BC #### [facility] [address] [address] [address] Lupe Evangelista VLDL CALC 21.0 mg/dL Normal [facility] Comment on above: Performed By: #### C BC #### [facility] [address] [place] [address] Dr. Lupe Evangelista PROF 14(COMP METB)on 022 Albumin [Mass/Vol] 3.7 g/dL Normal 3.4-5.0 [facility] Comment on above: Performed By: #### C MP, LIPID, TSH, T7 #### [facility] [address] [place] [address] Dr. Lupe Evangelista Albumin/Globulin [Mass ratio] 1.0 {ratio} Normal [facility] Comment on above: Performed By: #### C MP, LIPID, TSH, T7 #### [facility] [address] [place] [address] Dr. Lupe Evangelista ALP [Catalytic activity/Vol] 86 U/L Normal 46-116 [facility] Comment on above: Performed By: #### C MP, LIPID, TSH, T7 #### [facility] [address] [place] [address] Dr. Lupe Evangelista ALT [Catalytic activity/Vol] 16 U/L Normal 14-59 [facility] Comment on above: Performed By: #### C MP, LIPID, TSH, T7 #### [facility] [address] [place] [address] Dr. Lupe Evangelista Anion gap [Moles/Vol] 7.0 mmol/L Normal [facility] Comment on above: Performed By: #### C MP, LIPID, TSH, T7 #### [facility] [address] [place] [address] Dr. Lupe Evangelista AST [Catalytic activity/Vol] 14 U/L Critically low 15-37 [facility] Comment on above: Performed By: #### C MP, LIPID, TSH, T7 #### [facility] [address] [place] [address] Dr. Lupe Evangelista Bilirubin [Mass/Vol] 0.4 mg/dL Normal 0.2-1.0 [facility] Comment on above: Performed By: #### C MP, LIPID, TSH, T7 #### [facility] [address] [address] [address] Lupe Evangelista Calcium [Mass/Vol] 8.9 mg/dL Normal 8.5-10.1 [facility] Comment on above: Performed By: #### C MP, LIPID, TSH, T7 #### [facility] [address] [place] [address] Dr. Lupe Evangelista Chloride [Moles/Vol] 102 mmol/L Normal 98-107 [facility] Comment on above: Performed By: #### C MP, LIPID, TSH, T7 #### [facility] [address] [place] [address] Dr. Lupe Evangelista CO2 [Moles/Vol] 34.3 mmol/L Critically high 21.0-32.0 [facility] Comment on above: Performed By: #### C MP, LIPID, TSH, T7 #### [facility] [address] [place] [address] Dr. Lupe Evangelista Creatinine [Mass/Vol] 0.73 mg/dL Normal 0.55-1.02 [facility] Comment on above: Performed By: #### C MP, LIPID, TSH, T7 #### [facility] [address] [place] [address] Dr. Lupe Evangelista EGFR-AF SYRIAN >60 Normal >=60 [facility] Comment on above: Performed By: #### C MP, LIPID, TSH, T7 #### [facility] [address] [place] [address] Dr. Lupe Evangelista EGFR-NON AF SYRIAN >60 Normal >=60 [facility] Comment on above: Performed By: #### C MP, LIPID, TSH, T7 #### [facility] [address] [place] [address] Dr. Lupe Evangelista Globulin (S) [Mass/Vol] 3.8 g/dL Normal [facility] Comment on above: Performed By: #### C MP, LIPID, TSH, T7 #### [facility] [address] [place] [address] Dr. Lupe Evangelista Glucose [Mass/Vol] 111 mg/dL Critically high 74-106 [facility] Comment on above: Performed By: #### C MP, LIPID, TSH, T7 #### [facility] [address] [address] [address] Lupe Evangelista Potassium [Moles/Vol] 4.3 mmol/L Normal 3.5-5.1 [facility] Comment on above: Performed By: #### C MP, LIPID, TSH, T7 #### [facility] [address] [address] [address] Lupe Evangelista Protein [Mass/Vol] 7.5 g/dL Normal 6.4-8.2 [facility] Comment on above: Performed By: #### C MP, LIPID, TSH, T7 #### [facility] [address] [place] [address] Dr. Lupe Evangelista Sodium [Moles/Vol] 139 mmol/L Normal 136-145 [facility] Comment on above: Performed By: #### C MP, LIPID, TSH, T7 #### [facility] [address] [place] [address] Dr. Lupe Evangelista Urea nitrogen [Mass/Vol] 11.0 mg/dL Normal 7.0-18.0 [facility] Comment on above: Performed By: #### C MP, LIPID, TSH, T7 #### [facility] [address] [place] [address] Dr. Lupe Evangelista Urea nitrogen/Creatinine [Mass ratio] 15.1 mg/mg Normal [facility] Comment on above: Performed By: #### C MP, LIPID, TSH, T7 #### [facility] [address] [place] [address] Dr. Lupe Evangelista TSHon 02-07-2022 TSH 2.224 uIU/mL Normal 0.358-3.740 [facility] Comment on above: Performed By: #### C BC #### [facility] [address] [place] [address] Dr. Lupe Evangelista VITAMIN D 25 OHon 02-07-2022 VIT D 25-OH 17.8 ng/mL Normal [facility] Comment on above: Performed By: #### I DONNELL VITAD #### [facility] [address] [address] [address] Lupe Evangelista VIT D RANGES SEE BELOW Normal [facility] Comment on above: Result Comment: <20 ng/mL Vit D deficient 20 - <30 ng/mL Vit D insufficient 30 - 100 ng/mL Vit D sufficient >100 ng/mL Potential Toxicity Performed By: #### I DONNELL VITAD #### [facility] [address] [address] [address] Lupe Evangelista XR CHEST 2 Von [...] ARIANNE BRAGA Date: 2022-02-07 17:56 Normal [facility] CBC AUTO DIFFon 12-01-2021 BASO # 0.1 103/ul Normal 0.0-0.1 [facility] Comment on above: Performed By: #### C BC #### [facility] [address] [place] [address] Dr. Lupe Evangelista Basophils/100 WBC (Bld) 0.8 % Normal 0.2-2.0 [facility] Comment on above: Performed By: #### C BC #### [facility] [address] [place] [address] Dr. Lupe Evangelista EO # 0.4 103/ul Normal 0.0-0.7 [facility] Comment on above: Performed By: #### C BC #### [facility] [address] [place] [address] Dr. Lupe Evangelista Eosinophils/100 WBC (Bld) 5.4 % Normal 0.9-7.0 [facility] Comment on above: Performed By: #### C BC #### [facility] [address] [place] [address] Dr. Lupe Evangelista Erythrocyte distribution width (RBC) [Ratio] 16.3 % Critically high 11.0-15.0 [facility] Comment on above: Performed By: #### C BC #### [facility] [address] [place] [address] Dr. Lupe Evangelista Hematocrit (Bld) [Volume fraction] 36.0 % Normal 36.0-48.0 [facility] Comment on above: Performed By: #### C BC #### [facility] [facility] [address] [place] [address] Dr. Lupe Evangelista Hemoglobin (Bld) [Mass/Vol] 10.4 g/dL Critically low 12.0-16.0 [facility] Comment on above: Performed By: #### C BC #### [facility] [address] [place] [address] Dr. Lupe Evangelista IG # 0.04 10e3/ul Critically high 0.00-0.03 [facility] Comment on above: Performed By: #### C BC #### [facility] [address] [place] [address] Dr. Lupe Evangelista IG % 0.6 % Critically high 0.0-0.5 [facility] Comment on above: Performed By: #### C BC #### [facility] [address] [place] [address] Dr. Lupe Evangelista LYMPH # 1.9 103/ul Normal 1.2-3.8 [facility] Comment on above: Performed By: #### C BC #### [facility] [address] [place] [address] Dr. Lupe Evangelista Lymphocytes/100 WBC (Bld) 29.1 % Normal 20.5-60.0 [facility] Comment on above: Performed By: #### C BC #### [facility] [address] [place] [address] Dr. Lupe Evangelista MANUAL DIFF REQ NO Normal [facility] Comment on above: Performed By: #### C BC #### [facility] [address] [place] [address] Dr. Lupe Evangelista MCH (RBC) [Entitic mass] 24.9 pg Critically low 26.7-34.0 [facility] Comment on above: Performed By: #### C BC #### [facility] [address] [place] [address] Dr. Lupe Evangelista MCHC (RBC) [Mass/Vol] 28.9 g/dL Critically low 29.9-35.2 [facility] Comment on above: Performed By: #### C BC #### [facility] [address] [place] [address] Dr. Lupe Evangelista MCV (RBC) [Entitic vol] 86.1 fL Normal 81.0-99.0 [facility] Comment on above: Performed By: #### C BC #### [facility] [address] [place] [address] Dr. Lupe Evangelista MONO # 0.7 103/ul Normal 0.3-0.8 [facility] Comment on above: Performed By: #### C BC #### [facility] [address] [place] [address] Dr. Lupe Evangelista Monocytes/100 WBC (Bld) 10.7 % Normal 1.7-12.0 [facility] Comment on above: Performed By: #### C BC #### [facility] [address] [place] [address] Dr. Lupe Evangelista NEUT # 3.4 103/ul Normal 1.4-6.5 [facility] Comment on above: Performed By: #### C BC #### [facility] [address] [place] [address] Dr. Lupe Evangelista Neutrophils/100 WBC (Bld) 53.4 % Normal 43.0-75.0 [facility] Comment on above: Performed By: #### C BC #### [facility] [address] [place] [address] Dr. Lupe Evangelista Platelet mean volume (Bld) [Entitic vol] 10.6 fL Normal 9.5-13.5 [facility] Comment on above: Performed By: #### C BC #### [facility] [address] [address] [address] Lupe Evangelista PLT 320 103/ul Normal 150-450 [facility] Comment on above: Performed By: #### C BC #### [facility] [address] [place] [address] Dr. Lupe Evangelista RBC 4.18 106/ul Critically low 4.20-5.40 [facility] Comment on above: Performed By: #### C BC #### [facility] [address] [place] [address] Dr. Lupe Evangelista WBC 6.4 103/ul Normal 4.0-11.0 [facility] Comment on above: Performed By: #### C BC #### [facility] [address] [place] [address] Dr. Lupe Evangelista CRPon 12-01-2021 CRP 1.6 mg/dL Critically high <=1.0 [facility] Comment on above: Performed By: #### C RP #### [facility] [address] [place] [address] Dr. Lupe Evangelista CBC AUTO DIFFon 11-29-2021 BASO # 0.1 103/ul Normal 0.0-0.1 [facility] Comment on above: Performed By: #### C BC #### [facility] [address] [place] [address] Dr. Lupe Evangelista Basophils/100 WBC (Bld) 0.6 % Normal 0.2-2.0 [facility] Comment on above: Performed By: #### C BC #### [facility] [address] [place] [address] Dr. Lupe Evangelista EO # 0.4 103/ul Normal 0.0-0.7 [facility] Comment on above: Performed By: #### C BC #### [facility] [address] [place] [address] Dr. Lupe Evangelista Eosinophils/100 WBC (Bld) 5.4 % Normal 0.9-7.0 [facility] Comment on above: Performed By: #### C BC #### [facility] [address] [place] [address] Dr. Lupe Evangelista Erythrocyte distribution width (RBC) [Ratio] 16.5 % Critically high 11.0-15.0 [facility] Comment on above: Performed By: #### C BC #### [facility] [address] [place] [address] Dr. Lupe Evangelista Hematocrit (Bld) [Volume fraction] 36.1 % Normal 36.0-48.0 [facility] Comment on above: Performed By: #### C BC #### [facility] [address] [place] [address] Dr. Lupe Evangelista Hemoglobin (Bld) [Mass/Vol] 10.6 g/dL Critically low 12.0-16.0 [facility] Comment on above: Performed By: #### C BC #### [facility] [address] [place] [address] Dr. Lupe Evangelista IG # 0.03 10e3/ul Normal 0.00-0.03 [facility] Comment on above: Performed By: #### C BC #### [facility] [address] [place] [address] Dr. Lupe Evangelista IG % 0.4 % Normal 0.0-0.5 [facility] Comment on above: Performed By: #### C BC #### [facility] [address] [place] [address] Dr. Lupe Evangelista LYMPH # 2.3 103/ul Normal 1.2-3.8 [facility] Comment on above: Performed By: #### C BC #### [facility] [address] [place] [address] Dr. Lupe Evangelista Lymphocytes/100 WBC (Bld) 29.9 % Normal 20.5-60.0 [facility] Comment on above: Performed By: #### C BC #### [facility] [address] [place] [address] Dr. Lupe Evangelista MANUAL DIFF REQ NO Normal [facility] Comment on above: Performed By: #### C BC #### [facility] [address] [place] [address] Dr. Lupe Evangelista MCH (RBC) [Entitic mass] 25.4 pg Critically low 26.7-34.0 [facility] Comment on above: Performed By: #### C BC #### [facility] [address] [place] [address] Dr. Lupe Evangelista MCHC (RBC) [Mass/Vol] 29.4 g/dL Critically low 29.9-35.2 [facility] Comment on above: Performed By: #### C BC #### [facility] [address] [place] [address] Dr. Lupe Evangelista MCV (RBC) [Entitic vol] 86.4 fL Normal 81.0-99.0 [facility] Comment on above: Performed By: #### C BC #### [facility] [address] [place] [address] Dr. Lupe Evangelista MONO # 0.9 103/ul Critically high 0.3-0.8 [facility] Comment on above: Performed By: #### C BC #### [facility] [address] [place] [address] Dr. Lupe Evangelista Monocytes/100 WBC (Bld) 10.9 % Normal 1.7-12.0 [facility] Comment on above: Performed By: #### C BC #### [facility] [address] [place] [address] Dr. Lupe Evangelista NEUT # 4.1 103/ul Normal 1.4-6.5 [facility] Comment on above: Performed By: #### C BC #### [facility] [address] [place] [address] Dr. Lupe Evangelista Neutrophils/100 WBC (Bld) 52.8 % Normal 43.0-75.0 [facility] Comment on above: Performed By: #### C BC #### [facility] [address] [place] [address] Dr. Lupe Evangelista Platelet mean volume (Bld) [Entitic vol] 11.2 fL Normal 9.5-13.5 [facility] Comment on above: Performed By: #### C BC #### [facility] [address] [place] [address] Dr. Lupe Evangelista PLT 351 103/ul Normal 150-450 [facility] Comment on above: Performed By: #### C BC #### [facility] [address] [address] [address] Lupe Evangelista RBC 4.18 106/ul Critically low 4.20-5.40 [facility] Comment on above: Performed By: #### C BC #### [facility] [address] [place] [address] Dr. Lupe Evangelista WBC 7.8 103/ul Normal 4.0-11.0 [facility] Comment on above: Performed By: #### C BC #### [facility] [address] [place] [address] Dr. Lupe Evangelista CRPon 11-29-2021 CRP 1.7 mg/dL Critically high <=1.0 [facility] Comment on above: Performed By: #### C RP, CMP #### [facility] [address] [place] [address] Dr. Lupe Evangelista CULTURE BLOODon 11-29-2021 Microscopic examination of blood, culture Culture Observations: NO GROWTH AT 5 DAYS. Normal [facility] Comment on above: Performed By: #### C BC #### [facility] [address] [place] [address] Dr. Lupe Evangelista Microscopic examination of blood, culture Culture Observations: NO GROWTH AT 5 DAYS. Normal [facility] Comment on above: Performed By: #### C BC #### [facility] [address] [place] [address] Dr. Lupe Evangelista PROF 14(COMP METB)on 022 Albumin [Mass/Vol] 3.5 g/dL Normal 3.4-5.0 [facility] Comment on above: Performed By: #### C RP, CMP #### [facility] [address] [place] [address] Dr. Lupe Evangelista Albumin/Globulin [Mass ratio] 0.9 {ratio} Normal [facility] Comment on above: Performed By: #### C RP, CMP #### [facility] [address] [address] [address] Lupe Evangelista ALP [Catalytic activity/Vol] 105 U/L Normal 46-116 [facility] Comment on above: Performed By: #### C RP, CMP #### [facility] [address] [place] [address] Dr. Lupe Evangelista ALT [Catalytic activity/Vol] 15 U/L Normal 14-59 [facility] Comment on above: Performed By: #### C RP, CMP #### [facility] [address] [place] [address] Dr. Lupe Evangelista Anion gap [Moles/Vol] 7.3 mmol/L Normal [facility] Comment on above: Performed By: #### C RP, CMP #### [facility] [address] [place] [address] Dr. Lupe Evangelista AST [Catalytic activity/Vol] 21 U/L Normal 15-37 [facility] Comment on above: Performed By: #### C RP, CMP #### [facility] [address] [place] [address] Dr. Lupe Evangelista Bilirubin [Mass/Vol] 0.4 mg/dL Normal 0.2-1.0 [facility] Comment on above: Performed By: #### C RP, CMP #### [facility] [address] [place] [address] Dr. Lupe Evangelista Calcium [Mass/Vol] 8.5 mg/dL Normal 8.5-10.1 [facility] Comment on above: Performed By: #### C RP, CMP #### [facility] [address] [place] [address] Dr. Lupe Evangelista Chloride [Moles/Vol] 102 mmol/L Normal 98-107 [facility] Comment on above: Performed By: #### C RP, CMP #### [facility] [address] [address] [address] Lupe Evangelista CO2 [Moles/Vol] 31.9 mmol/L Normal 21.0-32.0 [facility] Comment on above: Performed By: #### C RP, CMP #### [facility] [address] [place] [address] Dr. Lupe Evangelista Creatinine [Mass/Vol] 0.76 mg/dL Normal 0.55-1.02 [facility] Comment on above: Performed By: #### C RP, CMP #### [facility] [address] [place] [address] Dr. Lupe Evangelista EGFR-AF SYRIAN >60 Normal >=60 [facility] Comment on above: Performed By: #### C RP, CMP #### [facility] [address] [place] [address] Dr. Lupe Evangelista EGFR-NON AF SYRIAN >60 Normal >=60 [facility] Comment on above: Performed By: #### C RP, CMP #### [facility] [address] [place] [address] Dr. Lupe Evangelista Globulin (S) [Mass/Vol] 3.9 g/dL Normal [facility] Comment on above: Performed By: #### C RP, CMP #### [facility] [address] [place] [address] Dr. Lupe Evangelista Glucose [Mass/Vol] 92 mg/dL Normal 74-106 [facility] Comment on above: Performed By: #### C RP, CMP #### [facility] [address] [place] [address] Dr. Lupe Evangelista Potassium [Moles/Vol] 4.2 mmol/L Normal 3.5-5.1 [facility] Comment on above: Performed By: #### C RP, CMP #### [facility] [address] [place] [address] Dr. Lupe Evangelista Protein [Mass/Vol] 7.4 g/dL Normal 6.4-8.2 [facility] Comment on above: Performed By: #### C RP, CMP #### [facility] [address] [place] [address] Dr. Lupe Evangelista Sodium [Moles/Vol] 137 mmol/L Normal 136-145 [facility] Comment on above: Performed By: #### C RP, CMP #### [facility] [address] [address] [address] Lupe Evangelista Urea nitrogen [Mass/Vol] 8.0 mg/dL Normal 7.0-18.0 [facility] Comment on above: Performed By: #### C RP, CMP #### [facility] [address] [address] [address] Lupe Evangelista Urea nitrogen/Creatinine [Mass ratio] 10.5 mg/mg Normal [facility] Comment on above: Performed By: #### C RP, CMP #### [facility] [address] [place] [address] Dr. Lupe Evangelista SED RATE [facility] 2021 SED RATE 27 mm/hr Normal <=30 [facility] Comment on above: Performed By: #### S EDR #### [facility] [address] [place] [address] Dr. Lupe Evangelista XR KNEE RT 4V [...] by: HUNTER LAWRENCE Date: 2021-11-15 21:55 Normal [facility] Vital Signs Date Time Vital Sign Value Performing Clinician [place] 07-31-2023 14:30-0400 Blood Pressure Location Galileo Mcnamara [facility] [place] 07-31-2023 14:30-0400 Diastolic blood pressure 62 mm[Hg] Galileo Mcnamara [facility] 07-31-2023 14:30-0400 Heart rate 68 /min Galileo CAMACHOL [facility] 07-31-2023 14:30-0400 Respiratory rate 16 /min Galileo CAMACHOL [facility] 07-31-2023 14:30-0400 Systolic blood pressure 120 mm[Hg] [facility] En[facility] Encounter Date Encounter Type Care Provider Facility Start: 09-24-2023 End: 09-24-2023 ambulatory Galileo R MELL Facility: [facility] Start: 09-24-2023 End: 09-24-2023 Patient encounter procedure [facility] Start: 09-18-2023 End: 09-18-2023 ambulatory Galileo Cleary [facility] Work Phone: Start: 09-18-2023 End: 09-18-2023 Departed Referred MD Galileo Cleary Work Phone: [facility] [place] [facility] Start: 09-18-2023 End: 09-18-2023 ambulatory Galileo CLEARY Facility:[id number] Start: 07-31-2023 End: 07-31-2023 ambulatory Galileo R NILRenu Facility: [facility] Start: 07-31-2023 End: 07-31-2023 Patient encounter procedure [facility] Start: 07-19-2023 ambulatory Galileo CLEARY Facility:Fabricio [...] Provider Fa cility 12-07-2021 SARS-CoV-2 (COVID-19 ) mRNAMUL.[id number] Galileo NILL [facility] 07-14-2021 SARS-CoV-2 mRNA (twfzugaoyqv-xstf-gxubk se) vaccine Galileo NILL [facility] 12-27-2020 SARS-CoV-2 (COVID-19 ) mRNA BNT-162b2 vax Galileo NILL [facility] 05-18-2020 SARS-CoV-2 (COVID-19 ) mRNA BNT-162b2 vax Galileo NILL [facility] Comment on above: Result Comment: 2023: [id number] 04-27-2020 SARS-CoV-2 (COVID-19 ) mRNA BNT-162b2 vax Galileo CLEARY [facility] Comment on above: Result Comment: 2023: [id number] Payers Date Payer Category Payer Self-pay [id number] 1960 Medicare [id number] 1960 Unknown [id number] 1950 Unknown [id number] 1950 Unknown [id number] 1950 Unknown [id number] 1950 Unknown [id number] 1949 Unknown [id number] 1949 Unknown [id number] 1950 Unknown [id number] 1950 Unknown [id number] Unknown Regular Insurance [id number] Unknown [id number] Worker's Compensation [employer] [facility] [id number] Social History Date Type Detail Facility Start: 07-31-2023 Tobacco smoking status Never s moked tobacco (finding) [facility] Sex [facility]igned At Female [facility] Start: 1950 Sex Assigned At Female F [facility] Functional Status Date Assessment Result Facility 07-31-2023 [facility] [place] Clinical Note 07-31-2023 Note Date & Type [...] plan excisional biopsy under local anesthesia at [facility], for definitive diagnosis and treatment; informed [...] Immunizations Vaccine Date Status Comments SARS-CoV-2 (COVID-19) mRNAMUL.[id number] 12/07/2021 Recorded SARSCoV2 mRNA(jrezplaol-xxid-dtecnz) vac 07/14/2021 Recorded SARS-CoV-2 (COVID-19) mRNA BNT-162b2 vax 12/27/2020 Recorded SARS-CoV-2 (COVID-19) mRNA BNT-162b2 vax 05/18/2020 Recorded 2023-07-19: [id number] SARS-CoV-2 (COVID-19) mRNA BNT-162b2 vax 04/27/2020 Recorded 2023-07-19: [id number] [facility] Comment on above: Result Comment: Elec tronically Signed By: MELL MONGE, Galileo Roberts\Date and Time Signed: 07/31/23 15:12 EDT Evaluation + Plan note Note Date & Type Note Facility Evaluation + Plan note No data available for this section [facility] Evaluation note Note Date & Type Note Facility [facility] Discharge instructions Note Date & Type Note Facility Hospital Discharge instructions No data available for this section [facility] Progress note Note Date & Type Note Facility Progress note No data available for this section [facility] Summary Purpose Family History No Family History [...] CREATED AUTHOR AUTHOR'S ORGANIZ ATION 09/24/2023 [facility] DATE CREATED AUTHOR AUTHOR'S ORGANIZ ATION 09/26/2023 [facility] Patient Care team informatio n (unrecognized [...] BE BASED ON THE PRIMARY CLINICAL RECORDS. [employer] provides no warranty or guarantee of the accuracy or completeness of information in this document.
== END 2024-02-24 10:08 | disposition home or self-care (01) ==
LOC: RAD 10:08
PROVIDERS: PCP Family Medicine; Visit Provider Family Medicine
DX: R60.0 Localized edema (principal); M79.661 Pain in right lower leg
CPT/HCPCS: 93970

== ENCOUNTER 2024-02-24 15:10 | Outpatient (RCR) | payer MEDICARE, OTHER, SELFPAY | END 2024-02-25 11:53 | disposition home or self-care (01) | LOC: PT 15:10 | PROVIDERS: PCP Family Medicine; Visit Provider Family Medicine | DX: R53.1 Weakness (principal) | CPT/HCPCS: 97110; 97162 ==

== ENCOUNTER 2024-02-28 10:04 | Inpatient (IN) | payer MEDICARE, OTHER, SELFPAY ==
[2024-02-28] VITALS (18 sets, daily range): BP systolic 90–160; BP diastolic 53–93; PULSE 78–117; TEMP 36.4–36.8; O2SAT 93–98; BMI 24.8; BMI 22.7
--- NOTE | 2024-02-28 10:24 | XR_ITS ---
The [address] [address] Patient Name: DARRYL ZAYAS MRN: [id number] date: 1950 Sex: F Assigned Patient Location: ER Current Patient Location: ER Accession/Order Number: [id number] Exam Date: 02/28/2024 10:46 Report Date: 02/28/2024 11:21 At the request of: JANE MCKINLEY Procedure: XR chest 1V EXAMINATION: XR chest 1V HISTORY: Peripheral edema COMPARISON: XR chest 02/13/2024 FINDINGS: LUNGS: Opacities within the right lung base obscuring the diaphragm margin and costophrenic angle. VASCULATURE: No increased pulmonary vasculature. PLEURA: No pneumothorax, effusion, or pleural thickening. CARDIAC: No cardiomegaly or cardiac silhouette abnormality. MEDIASTINUM: No visible mass or adenopathy. BONES: No fracture or visible bone lesion. OTHER: Negative. XR/XR chest 1V IMPRESSION: 1. Mild opacities obscuring the right lung base; similar to prior study. Suspect mild atelectasis/infiltrates or possibly a small pleural effusion. Electronically authenticated by: MARYBETH MORALES Date: 02/28/2024 11:21
--- NOTE | 2024-02-28 10:24 | ECG_ITS ---
[facility] Test Date: 2024-02-28 Pat Name: DARRYL ZAYAS Department: Room: - Gender: Female [employer]: : 1950 Requested By: VELMA WATKINS Order Number: [id number] Reading MD: VELMA WATKINS Measurements Intervals Hosmer Rate: 88 P: 49 WV: 200 QRS: 11 QRSD: 86 T: 66 QT: 340 QTc: 386 Interpretive Statements 1100 Sinus rhythm 4068 Poor Baseline Nonspecific Twave abnormality 9130 borderline ECG Compared to ECG 02/13/2024 10:48:33 T-wave abnormality no longer present Electronically Signed On 02-29-2024 6:28:32 EST by VELMA WATKINS
--- NOTE | 2024-02-28 10:28 | ED_ITS ---
HPI HPI - General Adult General Chief complaint: Extremity Problem, Nontraumatic Stated complaint: FEET ARE SWOLLEN Time Seen by Provider: 02/28/24 10:08 Source: patient and family Mode of arrival: Wheelchair Limitations: physical limitation History of Present Illness HPI narrative: 74-year-old female presents for foot and lower leg swelling. She has been having this for a few weeks and saw her doctor yesterday. Attempts been made at outpatient management with various diuretics but it is not helping. She is not complaining to me of shortness of breath or chest pain. She tells me she had a negative venous Doppler earlier this week. She was seen by her doctor yesterday who told her to go to the emergency department but she did not come until today. Related Data Home Medications ?Medication ?Instructions ?Recorded ?Confirmed colchicine 0.6 mg capsule 0.6 mg PO DAILY 08/13/23 02/28/24 fluticasone furoate 200 1 inh inhalation DAILY 08/13/23 02/28/24 mcg-vilanterol 25 mcg/dose inhalation powder (Breo Ellipta) oxycodone 5 mg tablet 5 mg PO DAILY PRN pain (scale 08/13/23 02/28/24 score 4-6) albuterol sulfate 2.5 mg/3 mL 2.5 mg inhalation Q6H PRN 09/17/23 02/28/24 (0.083 %) solution for nebulization shortness of breath or wheezing calcitonin (salmon) 200 1 spray intranasal DAILY 02/13/24 02/28/24 unit/actuation nasal spray albuterol sulfate 90 mcg/actuation 2 inh inhalation Q4H PRN shortness 02/28/24 02/28/24 aerosol inhaler (Ventolin HFA) of breath or wheezing bumetanide 1 mg tablet 1 mg PO DAILY 02/28/24 02/28/24 furosemide 40 mg tablet mg 02/28/24 spironolactone 50 mg tablet 50 mg PO DAILY 02/28/24 02/28/24 tramadol 50 mg tablet 50 mg PO Q8H PRN pain 02/28/24 02/28/24 Previous Rx's ?Medication ?Instructions ?Recorded pantoprazole 40 mg tablet,delayed 40 mg PO BID #60 tabs 02/15/24 release (Protonix) Allergies Allergy/AdvReac Type Severity Reaction Status Date / Time acetaminophen (From Vicodin) AdvReac Severe shortness Verified 02/13/24 10:46 of breath aspirin AdvReac Severe shortness Verified 02/13/24 10:46 of breath codeine AdvReac Severe shortness Verified 02/13/24 10:46 of breath hydrocodone (From Vicodin) AdvReac Severe shortness Verified 02/13/24 10:46 of breath morphine AdvReac Severe shortness Verified 02/13/24 10:46 of breath propoxyphene (From Darvon) AdvReac Mild shortness Verified 02/13/24 10:46 of breath Opioid HPI Opioid Management Most Recent Opioid Data: Last Pain Scale 0 02/15/24 07:43 02/15/24 Last Pain Intensity 2 02/13/24 15:17 02/13/24 Last ORT Total Score 0 02/13/24 13:52 02/13/24 Last ORT Risk Category Low Risk 02/13/24 13:52 02/13/24 Review of Systems ROS Narrative A ten point review of systems is negative except as noted above. PFSH PFSH Medical History Vitamin D deficiency ?E55.9 - Vitamin D deficiency, unspecified (ICD-10) Vitamin B deficiency ?E53.9 - Vitamin B deficiency, unspecified (ICD-10) Osteoporosis ?M81.0 - Age-related osteoporosis without current pathological fracture (ICD- 10) Benign neoplasm of ear ?D23.20 - Other benign neoplasm of skin of unspecified ear and external auricular canal (ICD-10) Insomnia ?G47.00 - Insomnia, unspecified (ICD-10) Gout ?M10.9 - Gout, unspecified (ICD-10) GERD (gastroesophageal reflux disease) ?K21.9 - Gastro-esophageal reflux disease without esophagitis (ICD-10) Eczema ?L30.9 - Dermatitis, unspecified (ICD-10) COPD (chronic obstructive pulmonary disease) ?J44.9 - Chronic obstructive pulmonary disease, unspecified (ICD-10) Asthma ?J45.909 - Unspecified asthma, uncomplicated (ICD-10) Surgical History History of bronchoscopy ?Z98.890 - Other specified postprocedural states (ICD-10) 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.2 - Acquired absence of lung [part of] (ICD-10) History of repair of hiatal hernia ?Z98.890 - Other specified postprocedural states (ICD-10) ?Z87.19 - Personal history of other diseases of the digestive system (ICD-10) History of lumpectomy of left breast ?Z98.890 - Other specified postprocedural states (ICD-10) History of hip surgery ?Z98.890 - Other specified postprocedural states (ICD-10) Hx of cholecystectomy ?Z90.49 - Acquired absence of other specified parts of digestive tract (ICD- 10) H/O cataract extraction ?Z98.49 - Cataract extraction status, unspecified eye (ICD-10) History of arthroplasty of right hip ?Z96.641 - Presence of right artificial hip joint (ICD-10) History of laparoscopic appendectomy ?Z90.49 - Acquired absence of other specified parts of digestive tract (ICD- 10) Family History Other Breast cancer Dementia Heart disease Social History Within the past year, how often did you have a drink containing alcohol: never Within the past year, how often did you have six or more drinks on one occasion: never Score interpretation: A score less than 3 is consistent with normal alcohol consumption. Smoking status: Never smoker Non-prescribed substance use: denies use Previous occupational history: [employer], [employer] Highest level of school completed/degree received: high school graduate Little interest or pleasure in doing things: not at all Feeling down, depressed, or hopeless: not at all Exam Narrative Exam Narrative: Nurses note and vital signs reviewed and patient is not hypoxic. General: The patient appears well and in no apparent distress. Patient is resting comfortably on cart. Skin: Warm, dry, no pallor noted. There is no rash noted. Head: Normocephalic, atraumatic Eye: Normal conjunctiva, no drainage Ears, Nose, Mouth, and Throat: oral mucosa is moist. Nares patent. Cardiovascular: Regular Rate and Rhythm Respiratory: Patient is in no distress, no accessory muscle use, lungs are clear to auscultation, no wheezing, rales or rhonchi Back: non-tender GI: Soft and nontender Musculoskeletal: Quite significant bilateral foot edema is present extending into the distal part of the lower legs. She has some loss of skin on the distal dorsum of her left foot in particular. No purulent drainage. Neurological: A&O, normal speech Psychiatric: Cooperative Constitutional Vital Signs, click to edit/add: Last Vital Signs Temp 97.7 F 02/28/24 10:14 Pulse 94 H 02/28/24 10:14 Resp 18 02/28/24 10:14 BP 147/93 H 02/28/24 10:14 Pulse Ox 96 02/28/24 10:14 O2 Del Method Room Air 02/28/24 10:14 Course Vital Signs Vital signs: Vital Signs Temperature 97.7 F 02/28/24 10:14 Pulse Rate 94 H 02/28/24 10:14 Respiratory Rate 18 02/28/24 10:14 Blood Pressure 147/93 H 02/28/24 10:14 Pulse Oximetry 96 02/28/24 10:14 Oxygen Delivery Method Room Air 02/28/24 10:14 Temperature 97.7 F 02/28/24 10:14 Pulse Rate 94 H 02/28/24 10:14 Respiratory Rate 18 02/28/24 10:14 Blood Pressure 147/93 H 02/28/24 10:14 Pulse Oximetry 96 02/28/24 10:14 Oxygen Delivery Method Room Air 02/28/24 10:14 Medical Decision Making [facility] Narrative Medical decision making narrative: The patient has significant peripheral edema. She had a negative lower extremity Doppler a few days ago and I do not feel that this needs to be repeated. Kidney function is at her baseline. I have spoken to Dr. Muller and the patient will be admitted and the plan is to place her on a Bumex drip. Findings are discussed with the patient. Differential Diagnosis Differential Diagnosis: Peripheral edema, heart failure Lab Data Lab results reviewed: Yes I reviewed the patient's lab results Labs: Lab Results 02/28/24 Range/Units 10:33 WBC 15.8 H (4.0-11.0) 10^3/uL RBC 4.92 (4.20-5.40) 10^6/uL Hgb 12.7 (12.0-16.0) g/dL Hct 39.7 (36.0-48.0) % MCV 80.7 L (81.0-99.0) fL MCH 25.8 L (26.7-34.0) pg MCHC 32.0 (29.9-35.2) g/dL RDW 17.3 H (11.0-15.0) % Plt Count 238 (150-450) 10^3/uL MPV 13.1 (9.5-13.5) fL Neut % (Auto) 69.8 (43.0-75.0) % Lymph % (Auto) 16.6 L (20.5-60.0) % [place] % (Auto) 6.7 (1.7-12.0) % Eos % (Auto) 0.1 L (0.9-7.0) % Baso % (Auto) 0.1 L (0.2-2.0) % Neut # (Auto) 11.0 H (1.4-6.5) 10^3/uL Lymph # (Auto) 2.6 (1.2-3.8) 10^3/uL [place] # (Auto) 1.1 H (0.3-0.8) 10^3/uL Eos # (Auto) 0.0 (0.0-0.7) 10^3/uL Baso # (Auto) 0.0 (0.0-0.1) 10^3/uL Abs Immat Gran (auto) 1.06 H (0.00-0.03) 10^3/uL Imm/Tot Granulo (auto) 6.7 H (0.0-0.5) % D-Dimer 0.88 H* (<=0.59) mg/L FEU Sodium 136 (136-145) mmol/L Potassium 3.7 (3.5-5.1) mmol/L Chloride 96 L (98-107) mmol/L Carbon Dioxide 27.8 (21.0-32.0) mmol/L Anion Gap 15.9 BUN 33.0 H (7.0-18.0) mg/dL Creatinine 1.56 H (0.55-1.02) mg/dL Est GFR ( Amer) 39 L (>=60 mL/min/1.73m^2) Est GFR (Non-Af Amer) 32 L (>=60 mL/min/1.73m^2) BUN/Creatinine Ratio 21.2 Glucose 164 H (74-106) mg/dL Calcium 8.7 (8.5-10.1) mg/dL Troponin I High Sens 44.5 (4.0-51.3) pg/mL Imaging Data Chest x-ray: Radiologist's impression: ITS Impressions Chest X-Ray 02/28/24 10:24 IMPRESSION: 1. Mild opacities obscuring the right lung base; similar to prior study. Suspect mild atelectasis/infiltrates or possibly a small pleural effusion. Electronically authenticated by: MARYBETH MORALES Date: 02/28/2024 11:21 ECG Data Attestation: I personally reviewed and interpreted this ECG as follows: (EKG on my interpretation shows sinus rhythm with rate of 88 no acute change) Discharge Plan Discharge Chief Complaint: Extremity Problem, Nontraumatic Clinical Impression: Edema, peripheral Patient Disposition: Admitted as Observation Time of Disposition Decision: 11:36 Condition: Fair
[2024-02-28 10:59] LABS: Basophils Percent Auto 0.1 % (0.2-2.0); Eosinophils Percent Auto 0.1 % (0.9-7.0); Hematocrit 39.7 % (36.0-48.0); Hemoglobin 12.7 g/dL (12.0-16.0); Immature Granulocytes Abs Auto 1.06 10^3/uL (0.00-0.03); Immature Granulocytes Pct Auto 6.7 % (0.0-0.5); Lymphocytes Absolute Auto 2.6 10^3/uL (1.2-3.8); Lymphocytes Percent Auto 16.6 % (20.5-60.0); Mean Corpuscular Hemoglobin 25.8 pg (26.7-34.0); Mean Corpuscular Volume 80.7 fL (81.0-99.0); Mean Platelet Volume 13.1 fL (9.5-13.5); Monocytes Absolute Auto 1.1 10^3/uL (0.3-0.8); Monocytes Percent Auto 6.7 % (1.7-12.0); Neutrophils Percent Auto 69.8 % (43.0-75.0); Platelet Count 238 10^3/uL (150-450); Red Blood Count 4.92 10^6/uL (4.20-5.40); Red Cell Distribution Width 17.3 % (11.0-15.0); White Blood Count 15.8 10^3/uL (4.0-11.0)
[2024-02-28 11:00] LABS: Anion Gap 15.9; BUN Creatinine Ratio 21.2; Calcium 8.7 mg/dL (8.5-10.1); Carbon Dioxide 27.8 mmol/L (21.0-32.0); Chloride 96 mmol/L (98-107); Estimated GFR (African America 39 (>=60 mL/min/1.73m^2); Estimated GFR (Non-African Ame 32 (>=60 mL/min/1.73m^2); Glucose 164 mg/dL (74-106); Potassium 3.7 mmol/L (3.5-5.1); Sodium 136 mmol/L (136-145)
[2024-02-28 11:10] LABS: Troponin I High Sensitivity 44.5 pg/mL (4.0-51.3)
[2024-02-28 11:16] LABS: D Dimer 0.88 mg/L FEU (<=0.59)
--- NOTE | 2024-02-28 13:01 | P.HP_ITS ---
HPI H&P: HPI History of Present Illness Chief complaint: FEET ARE SWOLLEN EDEMA PERIPHERAL Narrative: Patient was seen in the office earlier in the week with significant edema in her lower extremities, repeat evaluation yesterday as edema was worse, ultrasound of legs done as an outpatient was negative for DVT. This is likely just fluid mobilization from her last hospitalization. Patient unable to ambulate today secondary to pain and swelling. Patient will be admitted for workup and treatment of same. Only other significant finding on admission is an elevated white blood cell count Opioid HPI Opioid Management Most Recent Pain and Opioid Data: Last Pain Scale 0 02/15/24 07:43 02/15/24 Last Pain Intensity 2 02/13/24 15:17 02/13/24 Last ORT Total Score 0 02/28/24 12:41 02/28/24 Last ORT Risk Category Low Risk 02/28/24 12:41 02/28/24 Review of Systems ROS0 Status of ROS 10 or more systems reviewed and unremark able except as noted in history and below [facility] Medical History Acute renal failure ?N17.9 - Acute kidney failure, unspecified (ICD-10) Vomiting ?R11.10 - Vomiting, unspecified (ICD-10) 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) Elevated brain natriuretic peptide (BNP) level ?R79.89 - Other specified abnormal findings of blood chemistry (ICD-10) WHITNEY (acute kidney injury) ?N17.9 - Acute kidney failure, unspecified (ICD-10) Vitamin D deficiency ?E55.9 - Vitamin D deficiency, unspecified (ICD-10) Vitamin B deficiency ?E53.9 - Vitamin B deficiency, unspecified (ICD-10) Osteoporosis ?M81.0 - Age-related osteoporosis without current pathological fracture (ICD- 10) Benign neoplasm of ear ?D23.20 - Other benign neoplasm of skin of unspecified ear and external auricular canal (ICD-10) Insomnia ?G47.00 - Insomnia, unspecified (ICD-10) Gout ?M10.9 - Gout, unspecified (ICD-10) GERD (gastroesophageal reflux disease) ?K21.9 - Gastro-esophageal reflux disease without esophagitis (ICD-10) Eczema ?L30.9 - Dermatitis, unspecified (ICD-10) COPD (chronic obstructive pulmonary disease) ?J44.9 - Chronic obstructive pulmonary disease, unspecified (ICD-10) Asthma ?J45.909 - Unspecified asthma, uncomplicated (ICD-10) Surgical History (Updated 02/28/24 @ 11:48 by Lizzeth Vivar RN) Hx of cardiac cath ?Z98.890 - Other specified postprocedural states (ICD-10) History of bronchoscopy ?Z98.890 - Other specified postprocedural states (ICD-10) 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.2 - Acquired absence of lung [part of] (ICD-10) History of repair of hiatal hernia ?Z98.890 - Other specified postprocedural states (ICD-10) ?Z87.19 - Personal history of other diseases of the digestive system (ICD-10) History of lumpectomy of left breast ?Z98.890 - Other specified postprocedural states (ICD-10) History of hip surgery ?Z98.890 - Other specified postprocedural states (ICD-10) Hx of cholecystectomy ?Z90.49 - Acquired absence of other specified parts of digestive tract (ICD- 10) H/O cataract extraction ?Z98.49 - Cataract extraction status, unspecified eye (ICD-10) History of arthroplasty of right hip ?Z96.641 - Presence of right artificial hip joint (ICD-10) History of laparoscopic appendectomy ?Z90.49 - Acquired absence of other specified parts of digestive tract (ICD- 10) Family History (Updated 02/28/24 @ 11:48 by Lizzeth Vivar RN) Other Breast cancer Dementia Heart disease Stroke Social History Within the past year, how often did you have a drink containing alcohol: never Within the past year, how often did you have six or more drinks on one occasion: never Score interpretation: A score less than 3 is consistent with normal alcohol consumption. 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, [employer] Highest level of school completed/degree received: high school graduate Little interest or pleasure in doing things: not at all Feeling down, depressed, or hopeless: not at all Meds Home Medications and Allergies Home Medications ?Medication ?Instructions ?Recorded ?Confirmed ?Type colchicine 0.6 mg capsule 0.6 mg PO DAILY 08/13/23 02/28/24 History fluticasone furoate 200 1 inh inhalation DAILY 08/13/23 02/28/24 History mcg-vilanterol 25 mcg/dose inhalation powder (Breo Ellipta) oxycodone 5 mg tablet 5 mg PO DAILY PRN pain (scale 08/13/23 02/28/24 History score 4-6) albuterol sulfate 2.5 mg/3 mL 2.5 mg inhalation Q6H PRN 09/17/23 02/28/24 History (0.083 %) solution for nebulization shortness of breath or wheezing calcitonin (salmon) 200 1 spray intranasal DAILY 02/13/24 02/28/24 History unit/actuation nasal spray pantoprazole 40 mg tablet,delayed 40 mg PO BID #60 tabs 02/15/24 02/28/24 Rx release (Protonix) albuterol sulfate 90 mcg/actuation 2 inh inhalation Q4H PRN shortness 02/28/24 02/28/24 History aerosol inhaler (Ventolin HFA) of breath or wheezing bumetanide 1 mg tablet 1 mg PO DAILY 02/28/24 02/28/24 History furosemide 40 mg tablet mg 02/28/24 History spironolactone 50 mg tablet 50 mg PO DAILY 02/28/24 02/28/24 History tramadol 50 mg tablet 50 mg PO Q8H PRN pain 02/28/24 02/28/24 History Allergies Allergy/AdvReac Type Severity Reaction Status Date / Time acetaminophen (From Vicodin) AdvReac Severe shortness Verified 02/13/24 10:46 of breath aspirin AdvReac Severe shortness Verified 02/13/24 10:46 of breath codeine AdvReac Severe shortness Verified 02/13/24 10:46 of breath hydrocodone (From Vicodin) AdvReac Severe shortness Verified 02/13/24 10:46 of breath morphine AdvReac Severe shortness Verified 02/13/24 10:46 of breath propoxyphene (From Darvon) AdvReac Mild shortness Verified 02/13/24 10:46 of breath Exam Constitutional Vital Signs, click to edit/add: Last Vital Signs Temp 97.6 F 02/28/24 12:41 Pulse 84 02/28/24 12:41 Resp 16 02/28/24 12:41 BP 160/89 H 02/28/24 12:41 Pulse Ox 96 02/28/24 12:41 O2 Del Method Room Air 02/28/24 12:41 Documenting provider has reviewed patient's vital signs: yes Common normals: no apparent distress Chest Common normals: inspection of chest normal Respiratory Common normals: normal respiratory effort, no retractions and no use of accessory muscles; not clear to ascultation bilaterally (Chronic bronchiectasis sounds in the right lower lobe) Cardio Common normals: regular rate and regular rhythm Extremity Common normals: abnormal to inspection (4+ edema bilateral lower extremities, with blister ration) Results Labs Labs: Short CBC 02/28/24 Range/Units 10:33 WBC 15.8 H (4.0-11.0) 10^3/uL Hgb 12.7 (12.0-16.0) g/dL Hct 39.7 (36.0-48.0) % Plt Count 238 (150-450) 10^3/uL BMP 02/28/24 10:33 Sodium 136 Potassium 3.7 Chloride 96 L Carbon Dioxide 27.8 BUN 33.0 H Creatinine 1.56 H Glucose 164 H Calcium 8.7 Assessment and Plan Assessment and Plan (1) Edema, peripheral: (2) COPD (chronic obstructive pulmonary disease): (3) Asthma: Plan Admissions findings: Tachycardia, respiratory distress, leukocytosis secondary to bilateral lower extremity edema likely secondary to fluid overload, no signs of heart failure, some possible cellulitis with leukocytosis Fluid overload-severe peripheral edema-Bumex drip Cellulitis-IV antibiotics, serial labs, consult to wound Chronic bronchiectasis-routine home medicines Hypertension-continue with home medications GERD-continue with home medicatio status-patient will be placed in observation status, plan is for aggressive diuresis overnight, if improved tomorrow possible discharge to home tomorrow, feeling that she will need nsurther IV diuretics and medically necessary treatment will then span 2 midnights. Sheryl change patient to inpatient status at that time
--- NOTE | 2024-02-28 13:55 | W.PM.WC ---
Wound Consult Note Assessment and Plan (1) Edema, peripheral: (2) COPD (chronic obstructive pulmonary disease): (3) Asthma: Plan Consult: Bilateral lower leg/foot blisters Patient with open blisters to bilateral feet. See wound assessment below. Recommendations: Adaptic/calcium alginate to bilateral foot open blisters. Cover with gauze/kerlix/dieudonne wrap. Change daily Elevate legs Float heels off bed Orders in chart. Photos to be taken by staff nurse at next change. Please call [phone] with any changes, questions or concerns. Thomas Rios RN, CWON Wound Assessment Patient Status Premedicated Prior to Dressing Change: No Wound Left Dorsal Foot: Wound Type: Blister (open blister to left dorsal foot. ) Is This a Chronic Wound: No Length: 7.3 Width: 6 Depth: 0.1 Wound Bed Appearance: Beefy Red (partial thickness, no granulation, no slough) Surrounding Tissue Appearance: Edematous and Edematous-pitting Surrounding Tissue Temperature: cool Drainage Description: Serous Drainage Amount: Large Drainage Odor: No Odor Dressing Status: Changed Wound Topical Solution/Irrigant: warm water Primary Dressing: xeroform/calcium alginate Secondary Dressing: Gauze Roll/Wrap (dieudonne wrap over top gauze for light compression) Dressing Change Patient Tolerance: Tolerated Well Right Lateral Foot: Wound Type: Blister (scattered open, draining blisters) Is This a Chronic Wound: No Length: 15.3 Width: 3.1 Wound Margins Description: scattered area of weeping skin/blisters Surrounding Tissue Temperature: cool Drainage Description: Serous Drainage Amount: Moderate Drainage Odor: No Odor Wound Topical Solution/Irrigant: warm water Primary Dressing: xeroform/calcium alginate Secondary Dressinx4s, kerlix, dieudonne wrap Were photos of the wound(s) taken and uploaded to the chart?: No Dressing Change Patient Tolerance: Tolerated Well
[2024-02-28] MEDS: BUMETANIDE 10 MG in 0.9 % SODIUM CHLORIDE 160 ML IV (14:01)
[2024-02-28] MEDS: JUVEN PACKET 1 PACKET PO (14:12)
[2024-02-28] MEDS: CEFTRIAXONE 1,000 MG in 0.9 % SODIUM CHLORIDE 50 ML 100 MG IV (14:12)
[2024-02-28] MEDS: ENSURE HP 237 ML LIQUID PO ×2 (14:12→20:17)
[2024-02-28 14:34] LABS: Bilirubin Urine NEGATIVE (NEGATIVE); Blood Urine NEGATIVE (NEGATIVE); Clarity Urine CLEAR (CLEAR); Color Urine LT. YELLOW (YELLOW); Glucose Urine UA NEGATIVE (NEGATIVE); Ketones Urine NEGATIVE (NEGATIVE); Leukocyte Esterase Urine SMALL (NEGATIVE); Nitrite Urine NEGATIVE (NEGATIVE); Protein Urine NEGATIVE (NEG/TRACE); Specific Gravity Urine >=1.030 (1.005-1.025); Urobilinogen Urine 0.2 EU/dL (0.2-1.0)
[2024-02-28 14:52] LABS: Bacteria Urine SMALL #/HPF (NONE SEEN); RBC Urine NONE SEEN #/HPF (0-2)
[2024-02-28 14:53] LABS: Mucus Urine NONE SEEN (NONE SEEN); Squamous Epithelial Cell Urine FEW #/LPF (NONE/RARE)
[2024-02-28 14:54] LABS: Cast Seen? SEEN #/LPF (NONE SEEN)
[2024-02-28 14:55] LABS: Hyaline Casts Urine MODERATE
[2024-02-28] MEDS: ALBUTEROL SULFATE 2.5 MG/3 ML VIAL NEB IH ×2 (15:26→20:25)
[2024-02-28] MEDS: OMEPRAZOLE 40 MG CAPSULE.DR PO (15:39)
--- NOTE | 2024-02-28 15:59 | SWNOTE1 ---
Medicare Outpatient Observation Notice reviewed and discussed with patient. Pt. verbalized understanding and signed the form. Original given to patient and copy placed in patient?s chart.
--- NOTE | 2024-02-28 16:04 | SWNOTE1 ---
SW had a call from therapy and recommendations of HH. SW spoke with pt and she voiced she had been doing well at home, but her feet became swollen and she had some sores on bottom of feet. Pt was doing outpt therapy, but at this time is agreeable to HH so she does not have to go out and can have a nurse for HH as well. Pt lives at home with her and has a walker if needed. Pt stays on the first floor. Pt does not have a preference on companies at this time. Referral sent to [facility]. Referral included face sheet, ED note, H&P, provider notes, case management report, wound consult, , and PT/OT notes.
[2024-02-28] MEDS: TRAMADOL HCL 50 MG TABLET PO (19:21)
[2024-02-28] MEDS: BUDESONIDE 0.5 MG/2 ML AMPULE NEB IH (20:24)
[2024-02-28] MEDS: OXYCODONE HCL 5 MG TABLET PO (21:45)
[2024-02-29] VITALS (9 sets, daily range): BP systolic 95–133; BP diastolic 63–78; PULSE 80–100; TEMP 36.6–36.9; O2SAT 94–96
[2024-02-29] MEDS: TRAMADOL HCL 50 MG TABLET PO ×2 (03:51→21:54)
[2024-02-29 06:55] LABS: Anion Gap 10.6; BUN Creatinine Ratio 26.7; Calcium 8.5 mg/dL (8.5-10.1); Chloride 100 mmol/L (98-107); Estimated GFR (African America 46 (>=60 mL/min/1.73m^2); Estimated GFR (Non-African Ame 38 (>=60 mL/min/1.73m^2); Glucose 119 mg/dL (74-106); Potassium 3.6 mmol/L (3.5-5.1); Sodium 143 mmol/L (136-145)
[2024-02-29 07:43] LABS: Hematocrit 41.2 % (36.0-48.0); Hemoglobin 13.1 g/dL (12.0-16.0); Mean Corpuscular HGB Conc 31.8 g/dL (29.9-35.2); Mean Corpuscular Hemoglobin 25.6 pg (26.7-34.0); Mean Corpuscular Volume 80.5 fL (81.0-99.0); Mean Platelet Volume 12.6 fL (9.5-13.5); Platelet Count 224 10^3/uL (150-450); Red Blood Count 5.12 10^6/uL (4.20-5.40); Red Cell Distribution Width 17.8 % (11.0-15.0); White Blood Count 15.1 10^3/uL (4.0-11.0)
[2024-02-29 08:06] LABS: Anisocytosis 1+; Band Neutrophils Absolute 0.2 10^3/uL (0.0-0.3); Lymphocytes Absolute Manual 3.17 10^3/uL (1.20-3.80); Monocytes Absolute Manual 1.51 10^3/uL (0.30-0.80); Myelocytes Absolute Manual 0.15; Segmented Neut Absolute Manual 10.11 10^3/uL (1.4-6.5)
[2024-02-29] MEDS: OMEPRAZOLE 40 MG CAPSULE.DR PO ×2 (09:09→15:51)
[2024-02-29] MEDS: COLCHICINE 0.6 MG TABLET PO (09:09)
[2024-02-29] MEDS: JUVEN PACKET 1 PACKET PO (09:10)
[2024-02-29] MEDS: ENSURE HP 237 ML LIQUID PO (09:10)
[2024-02-29] MEDS: SPIRONOLACTONE 25 MG TABLET 50 MG PO (09:10)
[2024-02-29] MEDS: CALCITONIN,SALMON,SYNTHETIC 30 SPRAY/3.7 ML BOTTLE NS (09:10)
[2024-02-29] MEDS: CEFTRIAXONE 1,000 MG in 0.9 % SODIUM CHLORIDE 50 ML 100 MG IV (09:10)
--- NOTE | 2024-02-29 10:26 | P.PN_ITS ---
Progress Note: Subjective Subjective Interval history: Patient still has significant pain and pressure in her lower extremities. Bumex drip was then that being held last night. And not reinstituted despite improvement in blood pressure. Exam Constitutional Vital Signs, click to edit/add: Last Vital Signs Temp 98.1 F 02/29/24 08:45 Pulse 80 02/29/24 08:45 Resp 16 02/29/24 08:45 BP 95/63 02/29/24 08:45 Pulse Ox 95 02/29/24 08:45 O2 Del Method Room Air 02/29/24 08:45 Documenting provider has reviewed patient's vital signs: yes Common normals: no apparent distress Chest Common normals: inspection of chest normal Respiratory Common normals: normal respiratory effort, no retractions and no use of accessory muscles; not clear to ascultation bilaterally (Chronic bronchiectasis sounds in the right lower lobe) Cardio Common normals: regular rate and regular rhythm Extremity Common normals: abnormal to inspection (3+ edema bilateral lower extremities, with blister ration) Progress Note: Objective Labs Labs: Short CBC 02/28/24 02/29/24 Range/Units 10:33 05:54 WBC 15.8 H 15.1 H (4.0-11.0) 10^3/uL Hgb 12.7 13.1 (12.0-16.0) g/dL Hct 39.7 41.2 (36.0-48.0) % Plt Count 238 224 (150-450) 10^3/uL BMP 02/28/24 02/29/24 10:33 05:54 Sodium 136 143 Potassium 3.7 3.6 Chloride 96 L 100 Carbon Dioxide 27.8 36.0 H BUN 33.0 H 36.0 H Creatinine 1.56 H 1.35 H Glucose 164 H 119 H Calcium 8.7 8.5 Urine 02/28/24 Range/Units 13:00 Urine Color Lt. yellow (YELLOW) Urine Clarity Clear (CLEAR) Urine pH 5.0 (5.0-9.0) Ur Specific [place] >=1.030 A (1.005-1.025) Urine Protein Negative (NEG/TRACE) mg/dL Urine Glucose (UA) Negative (NEGATIVE) mg/dL Progress Note: A&P Assessment and Plan (1) Edema, peripheral: (2) COPD (chronic obstructive pulmonary disease): (3) Asthma: Plan Admissions findings: Tachycardia, respiratory distress, leukocytosis secondary to bilateral lower extremity edema likely secondary to fluid overload, no signs of heart failure, some possible cellulitis with leukocytosis Fluid overload-severe peripheral edema-Bumex drip -reinstitute today. Will only hold if blood pressure goes less than 90 systolic or patient symptomatic Leukocytosis with Cellulitis-IV antibiotics, serial labs, consult to wound- continue with current treatment plan, white blood cell count is still elevated Acute UTI on urinalysis-culture pending. Chronic bronchiectasis-routine home medicines Chronic kidney disease stage III-creatinine slightly better despite diuretics yesterday. Continue to monitor Hypertension-continue with home medications GERD-continue with home medicatio status-patient will be placed in observation status, plan is for aggressive diuresis overnight, if improved tomorrow possible discharge to home tomorrow, feeling that she will need nsurther IV diuretics and medically necessary treatment will then span 2 midnights. Patient failed initial observational time. Medically necessary treatment will span 2 midnights. Inpatient status.
[2024-02-29] MEDS: ALBUTEROL SULFATE 2.5 MG/3 ML VIAL NEB IH ×3 (11:02→21:59)
[2024-02-29] MEDS: BUDESONIDE 0.5 MG/2 ML AMPULE NEB IH ×2 (11:02→21:59)
--- NOTE | 2024-02-29 11:27 | PT.DAILY ---
Physical Therapy Daily Note PT Daily Note/Assess Start: 02/28/24 15:06 Freq: Status: Active Protocol: Document 02/29/24 11:17 [id number] (Rec: 02/29/24 11:27 [id number]) Physical Therapy Daily Note/Assessment Time In/Time Out Time In 09:28 Time Out 09:53 Pain In Pain Level 6 Pain Out Pain Level 6 Subjective Subjective Patient states her legs and feet are painful. Patient agreeable to participate with PT. States she will do the best she is able to. Therapeutic Activity Time Therapeutic Activity 25 Minutes (minutes) Therapeutic Activity 2 Units Therapeutic Activity Treatment Bed Mobility Ability Contact Guard Assist Chair Transfer Contact Guard Assist,Minimum Assist Ability Therapeutic Activity Patient requires MAX A to diane non-slip socks to ALLEN Comments feet. Does verbalizes increase discomfort with touch to feet. Bed mobility: supine to R side log rolling, VC's for use of UE and the use of handrail for support. Patient is able to slowly move ALLEN LE to EOB without A. Patient is MIN A to help scoot to EOB. Sitting balance good without UE support. Transfer: STS to 2WW, CGA to MIN A +1 w/ use of 1 hand on bed. VC's for safe hand placement. Patient ambulated ~16 feet x 1 with 2WW and gait belt. Step length and height decreased, pace is slow. Patient returned to EOB and performed STS x1 with use of R hand on bed. Patient transferred into bed with MIN A +1 for R LE management to place on bed due to weakness/pain. Bed rails up and CBWR. Nursing notified of patient placement and acknowledged information. Total Physical Therapy Time Total Therapy 25 Minutes Total Physical 2 Therapy Units Summary Daily Note Summary Patient demonstrates improved bed mobility this date with ability to move LE to EOB. Pain is limiting at times, requires MIN A to place R LE into bed when transferring back into bed. Patient would benefit from potential HH to address functional deficits and then OP PT.
[2024-02-29] MEDS: BUMETANIDE 10 MG in 0.9 % SODIUM CHLORIDE 160 ML IV (12:03)
[2024-02-29] MEDS: OXYCODONE HCL 5 MG TABLET PO ×2 (14:02→20:17)
[2024-03-01] VITALS (7 sets, daily range): BP systolic 111–138; BP diastolic 75–83; PULSE 87–110; TEMP 36.3–36.8; O2SAT 94–98
[2024-03-01] MEDS: OXYCODONE HCL 5 MG TABLET PO ×3 (06:12→23:01)
[2024-03-01] MEDS: OMEPRAZOLE 40 MG CAPSULE.DR PO (06:12)
[2024-03-01 06:27] LABS: Hemoglobin 12.8 g/dL (12.0-16.0); Mean Corpuscular Hemoglobin 25.7 pg (26.7-34.0); Mean Corpuscular Volume 80.2 fL (81.0-99.0); Mean Platelet Volume 12.3 fL (9.5-13.5); Platelet Count 215 10^3/uL (150-450); Red Blood Count 4.99 10^6/uL (4.20-5.40); White Blood Count 14.7 10^3/uL (4.0-11.0)
[2024-03-01 06:37] LABS: Anion Gap 11.3; BUN Creatinine Ratio 27.5; Calcium 8.1 mg/dL (8.5-10.1); Carbon Dioxide 36.1 mmol/L (21.0-32.0); Chloride 97 mmol/L (98-107); Estimated GFR (African America 48 (>=60 mL/min/1.73m^2); Estimated GFR (Non-African Ame 40 (>=60 mL/min/1.73m^2); Glucose 138 mg/dL (74-106); Potassium 3.4 mmol/L (3.5-5.1); Sodium 141 mmol/L (136-145)
[2024-03-01 07:05] LABS: Anisocytosis 1+; Band Neutrophils Absolute 0.4 10^3/uL (0.0-0.3); Eosinophils Absolute Manual 0.14 10^3/uL (0.00-0.70); Lymphocytes Absolute Manual 2.94 10^3/uL (1.20-3.80); Metamyelocytes Absolute Manual 0.14; Monocytes Absolute Manual 1.32 10^3/uL (0.30-0.80)
[2024-03-01] MEDS: CEFTRIAXONE 1,000 MG in 0.9 % SODIUM CHLORIDE 50 ML 100 MG IV (08:57)
[2024-03-01] MEDS: ENSURE HP 237 ML LIQUID PO ×2 (08:58→20:57)
[2024-03-01] MEDS: CALCITONIN,SALMON,SYNTHETIC 30 SPRAY/3.7 ML BOTTLE NS (08:58)
[2024-03-01] MEDS: SPIRONOLACTONE 25 MG TABLET 50 MG PO (08:58)
[2024-03-01] MEDS: COLCHICINE 0.6 MG TABLET PO (08:58)
--- NOTE | 2024-03-01 09:08 | P.DS_ITS ---
DS: Providers Provider Date of admission: 02/28/24 12:21 Primary care physician: Zack Muller MD Consults: 02/28/24 12:52 Consult to Pharmacy Routine Consulting Provider: Reason for consultation: Please [place] me when Med Rec is Updated Has provider been notified: No Occupational Therapy Eval and Treat Routine Reason for consultation: Only if needed for Rehab Has provider been notified: No Physical Therapy Eval and Treat Routine Reason for consultation: Eval and Treat Has provider been notified: No DS: Diagnosis Discharge Diagnosis (1) Edema, peripheral: (2) COPD (chronic obstructive pulmonary disease): (3) Asthma: Plan Admissions findings: Tachycardia, respiratory distress, leukocytosis secondary to bilateral lower extremity edema likely secondary to fluid overload, no signs of heart failure, some possible cellulitis with leukocytosis Fluid overload-severe peripheral edema-Bumex drip -reinstitute today. Will only hold if blood pressure goes less than 90 systolic or patient symptomatic Leukocytosis with Cellulitis-IV antibiotics, serial labs, consult to wound- continue with current treatment plan, white blood cell count is still elevated Acute UTI on urinalysis-culture pending. Chronic bronchiectasis-routine home medicines Chronic kidney disease stage III-creatinine slightly better despite diuretics y . Continue to monitor Hypertension-continue with home medications GERD-continue with home medicatio status-patient will be placed in observation status, plan is for aggressive diuresis overnight, if improved tomorrow possible discharge to home tomorrow, feeling that she will need nsurther IV diuretics and medically necessary treatment will then span 2 midnights. Patient failed initial observational time. Medically necessary treatment will span 2 midnights. Inpatient status. ? DS: Summary Hospital Course Hospital Course: Patient was seen and evaluated in the office 3 times prior to admission, fluid overload from previous admission. Significant dehydration on that admission and then now the fluid is mobilized and settled in her feet. We tried oral medications without success. She was admitted for fluid overload. Cellulitis of her foot as well. As well as acute UTI. She received 2 doses of IV Bumex over 10 at 20 hours each. Swelling persisted yesterday, excellent diuresis between yesterday and today however. Blood pressure stabilized, white blood cell count is improving, at this point she has no edema in her feet. Much improved from admission. At this point she be discharged to home in improving condition. Medications see list. Follow-up with me in the office tomorrow. Time Spent with Patient Time attestation: Total time spent providing and/or coordinating discharge services: Exam Constitutional Vital Signs, click to edit/add: Last Vital Signs Temp 98.2 F 03/01/24 00:32 Pulse 87 03/01/24 06:15 Resp 18 03/01/24 06:15 BP 138/83 03/01/24 06:15 Pulse Ox 94 L 03/01/24 06:15 O2 Del Method Room Air 03/01/24 06:15 Documenting provider has reviewed patient's vital signs: yes Common normals: no apparent distress Chest Common normals: inspection of chest normal Respiratory Common normals: normal respiratory effort, no retractions and no use of accessory muscles; not clear to ascultation bilaterally (Chronic bronchiectasis sounds in the right lower lobe) Cardio Common normals: regular rate and regular rhythm Extremity Common normals: abnormal to inspection (no edema bilateral lower extremities, wound from ruptured blister) DS: Data Data Completed and Pending Labs on day of discharge: Labs from last 24 hours 03/01/24 06:03 WBC 14.7 H RBC 4.99 Hgb 12.8 Hct 40.0 MCV 80.2 L MCH 25.7 L MCHC 32.0 RDW 18.0 H Plt Count 215 MPV 12.3 Seg Neuts % (Manual) 66.0 Band Neutrophils % 3.0 Lymphocytes % (Manual) 20.0 L Monocytes % (Manual) 9.0 Eosinophils % (Manual) 1.0 Basophils % (Manual) 0.0 L Metamyelocytes % 1.0 Neutrophils # (Manual) 9.70 H Band Neutrophils # 0.4 H Lymphocytes # (Manual) 2.94 Monocytes # (Manual) 1.32 H Eosinophils # (Manual) 0.14 Basophils # (Manual) 0.00 Metamyelocytes # 0.14 Anisocytosis 1+ Sodium 141 Potassium 3.4 L Chloride 97 L Carbon Dioxide 36.1 H Anion Gap 11.3 BUN 36.0 H Creatinine 1.31 H Est GFR ( Amer) 48 L Est GFR (Non-Af Amer) 40 L BUN/Creatinine Ratio 27.5 Glucose 138 H Calcium 8.1 L Discharge Plan Discharge Disposition: Home, Self-Care Condition: Fair Discharge Medications: New cefdinir 300 mg capsule 600 mg PO DAILY Qty: 20 0RF Continued calcitonin (salmon) 200 unit/actuation spray,non-aerosol 1 spray intranasal DAILY pantoprazole [Protonix] 40 mg tablet,delayed release (DR/EC) 40 mg PO BID Qty: 60 11RF fluticasone furoate-vilanterol [Breo Ellipta] 200-25 mcg/dose blister with device 1 inh inhalation DAILY colchicine 0.6 mg capsule 0.6 mg PO DAILY oxycodone 5 mg tablet 5 mg PO DAILY PRN (Reason: pain (scale score 4-6)) albuterol sulfate 2.5 mg /3 mL (0.083 %) solution for nebulization 2.5 mg inhalation Q6H PRN (Reason: shortness of breath or wheezing) albuterol sulfate [Ventolin HFA] 90 mcg/actuation HFA aerosol inhaler 2 inh INHALATION Q4H PRN (Reason: shortness of breath or wheezing) bumetanide 1 mg tablet 1 mg PO DAILY tramadol 50 mg tablet 50 mg PO Q8H PRN (Reason: pain) Discontinued furosemide 40 mg tablet 40 mg PO .qd spironolactone 50 mg tablet 50 mg PO DAILY Print Language: Canadian Forms: Portal Instructions
[2024-03-01] MEDS: BUMETANIDE 1 MG/4 ML VIAL IVP (09:49)
[2024-03-01] MEDS: BUDESONIDE 0.5 MG/2 ML AMPULE NEB IH ×2 (10:25→20:22)
[2024-03-01] MEDS: ALBUTEROL SULFATE 2.5 MG/3 ML VIAL NEB IH ×3 (10:25→20:22)
[2024-03-01] MEDS: JUVEN PACKET 1 PACKET PO (20:57)
[2024-03-01] MEDS: TRAMADOL HCL 50 MG TABLET PO (20:57)
[2024-03-02 01:00] VITALS: BP 125/79; PULSE 96; TEMP 36.7; O2SAT 95
[2024-03-02 05:58] LABS: Anion Gap 6.4; BUN Creatinine Ratio 28.3; Calcium 8.5 mg/dL (8.5-10.1); Chloride 99 mmol/L (98-107); Estimated GFR (African America 50 (>=60 mL/min/1.73m^2); Estimated GFR (Non-African Ame 41 (>=60 mL/min/1.73m^2); Glucose 138 mg/dL (74-106); Potassium 3.4 mmol/L (3.5-5.1); Sodium 139 mmol/L (136-145)
[2024-03-02 06:10] LABS: Hematocrit 37.9 % (36.0-48.0); Hemoglobin 12.2 g/dL (12.0-16.0); Mean Corpuscular HGB Conc 32.2 g/dL (29.9-35.2); Mean Corpuscular Hemoglobin 26.1 pg (26.7-34.0); Mean Platelet Volume 12.7 fL (9.5-13.5); Platelet Count 194 10^3/uL (150-450); Red Blood Count 4.68 10^6/uL (4.20-5.40); Red Cell Distribution Width 17.8 % (11.0-15.0); White Blood Count 14.1 10^3/uL (4.0-11.0)
[2024-03-02 06:29] LABS: Band Neutrophils Absolute 0.4 10^3/uL (0.0-0.3); Lymphocytes Absolute Manual 2.39 10^3/uL (1.20-3.80); Metamyelocytes Absolute Manual 0.28; Monocytes Absolute Manual 0.42 10^3/uL (0.30-0.80); Segmented Neut Absolute Manual 10.57 10^3/uL (1.4-6.5)
[2024-03-02 06:30] LABS: Anisocytosis 2+; Ovalocytes 2+
--- NOTE | 2024-03-02 06:57 | P.DS_ITS ---
DS: Providers Provider Date of admission: 02/29/24 12:30 Primary care physician: Zack Muller MD Consults: 02/28/24 12:52 Consult to Pharmacy Routine Consulting Provider: Reason for consultation: Please [place] me when Med Rec is Updated Has provider been notified: No Occupational Therapy Eval and Treat Routine Reason for consultation: Only if needed for Rehab Has provider been notified: No Physical Therapy Eval and Treat Routine Reason for consultation: Eval and Treat Has provider been notified: No DS: Diagnosis Discharge Diagnosis (1) Edema, peripheral: (2) COPD (chronic obstructive pulmonary disease): (3) Asthma: Plan Admissions findings: Tachycardia, respiratory distress, leukocytosis secondary to bilateral lower extremity edema likely secondary to fluid overload, no signs of heart failure, some possible cellulitis with leukocytosis Fluid overload-severe peripheral edema-resolved at the time of discharge Leukocytosis with Cellulitis-improving at the time of discharge Acute UTI on urinalysis-culture pending. Chronic bronchiectasis-routine home medicines Chronic kidney disease stage III-creatinine slightly better despite diuretics yesterday. Continue to monitor Hypertension-continue with home medications GERD-continue with home medicatio status-patient will be placed in observation status, plan is for aggressive diuresis overnight, if improved tomorrow possible discharge to home tomorrow, feeling that she will need nsurther IV diuretics and medically necessary treatment will then span 2 midnights. Patient failed initial observational time. Medically necessary treatment will span 2 midnights . Inpatient status. DS: Summary Hospital Course Hospital Course: Patient was seen and evaluated in the office 3 times prior to admission, fluid overload from previous admission. Significant dehydration on that admission and then now the fluid is mobilized and settled in her feet. We tried oral medications without success. She was admitted for fluid overload. Cellulitis of her foot as well. As well as acute UTI. She received 2 doses of IV Bumex over 10 at 20 hours each. Swelling persisted yesterday, excellent diuresis between yesterday and today however. Blood pressure stabilized, white blood cell count is improving, at this point she has no edema in her feet. She is improved today, she was better yesterday but still with significant weakness and near syncopal episodes on 3 occasions with ambulating. Likely secondary to fluid shifting. She does feel much better this morning. Plan is to have her ambulate after breakfast, if walking safely discharged home in improving condition. Medications see list. See me in the office later this week. Status at Discharge Overall status at discharge: patient is back to baseline Time Spent with Patient Time attestation: Total time spent providing and/or coordinating discharge services: Time spent: greater than 30 minutes Exam Constitutional Vital Signs, click to edit/add: Last Vital Signs Temp 98.0 F 03/02/24 01:00 Pulse 96 H 03/02/24 01:00 Resp 18 03/02/24 01:00 BP 125/79 03/02/24 01:00 Pulse Ox 95 03/02/24 01:00 O2 Del Method Room Air 03/02/24 01:00 Documenting provider has reviewed patient's vital signs: yes Common normals: no apparent distress HENWY Common normals: normocephalic and head/scalp atraumatic Chest Common normals: inspection of chest normal Respiratory Common normals: normal respiratory effort, no retractions and no use of access ory muscles; not clear to ascultation bilaterally (Chronic bronchiectasis sounds in the right lower lobe unchanged) Cardio Common normals: regular rate, regular rhythm and no murmurs Extremity Common normals: abnormal to inspection (no edema bilateral lower extremities, wound from ruptured blister) DS: Data Data Completed and Pending Labs on day of discharge: Labs from last 24 hours 03/02/24 03/01/24 05:10 06:03 WBC 14.1 H RBC 4.68 Hgb 12.2 Hct 37.9 MCV 81.0 MCH 26.1 L MCHC 32.2 RDW 17.8 H Plt Count 194 MPV 12.7 Seg Neuts % (Manual) 75.0 66.0 Band Neutrophils % 3.0 3.0 Lymphocytes % (Manual) 17.0 L 20.0 L Monocytes % (Manual) 3.0 9.0 Eosinophils % (Manual) 0.0 L 1.0 Basophils % (Manual) 0.0 L 0.0 L Metamyelocytes % 2.0 1.0 Neutrophils # (Manual) 10.57 H 9.70 H Band Neutrophils # 0.4 H 0.4 H Lymphocytes # (Manual) 2.39 2.94 Monocytes # (Manual) 0.42 1.32 H Eosinophils # (Manual) 0.00 0.14 Basophils # (Manual) 0.00 0.00 Metamyelocytes # 0.28 0.14 Anisocytosis 2+ 1+ Ovalocytes 2+ Sodium 139 Potassium 3.4 L Chloride 99 Carbon Dioxide 37.0 H Anion Gap 6.4 BUN 36.0 H Creatinine 1.27 H Est GFR ( Amer) 50 L Est GFR (Non-Af Amer) 41 L BUN/Creatinine Ratio 28.3 Glucose 138 H Calcium 8.5 Discharge Plan Discharge Disposition: Home Health Service Discharge Medications: New cefdinir 300 mg capsule 600 mg PO DAILY Qty: 20 0RF Continued calcitonin (salmon) 200 unit/actuation spray,non-aerosol 1 spray intranasal DAILY pantoprazole [Protonix] 40 mg tablet,delayed release (DR/EC) 40 mg PO BID Qty: 60 11RF fluticasone furoate-vilanterol [Breo Ellipta] 200-25 mcg/dose blister with device 1 inh inhalation DAILY colchicine 0.6 mg capsule 0.6 mg PO DAILY oxycodone 5 mg tablet 5 mg PO DAILY PRN (Reason: pain (scale score 4-6)) albuterol sulfate 2.5 mg /3 mL (0.083 %) solution for nebulization 2.5 mg inhalation Q6H PRN (Reason: shortness of breath or wheezing) albuterol sulfate [Ventolin HFA] 90 mcg/actuation HFA aerosol inhaler 2 inh INHALATION Q4H PRN (Reason: shortness of breath or wheezing) bumetanide 1 mg tablet 1 mg PO DAILY tramadol 50 mg tablet 50 mg PO Q8H PRN (Reason: pain) Discontinued furosemide 40 mg tablet 40 mg PO .qd spironolactone 50 mg tablet 50 mg PO DAILY Activity: ambulate only with your walker Diet: advance to your usual diet Print Language: Montenegrin Patient Instructions: Cefdinir (By mouth) (Omnicef), Edema (GEN) Forms: Portal Instructions Follow Up Appointments: Call Dr Muller office on Saturday to make follow up appointment. [phone]
--- NOTE | 2024-03-02 08:24 | CM.NOTE ---
Rounds made with Dr. Muller, pt will discharge to home today. Pt was set up last discharge for outpatient PT, will discuss with pt about HH services prior to discharge.
[2024-03-02 08:41] VITALS: BP 112/75; PULSE 90; TEMP 36.5; O2SAT 95
[2024-03-02] MEDS: CALCITONIN,SALMON,SYNTHETIC 30 SPRAY/3.7 ML BOTTLE NS (08:46)
[2024-03-02] MEDS: COLCHICINE 0.6 MG TABLET PO (08:46)
[2024-03-02] MEDS: POTASSIUM CHLORIDE 10 MEQ ER TABLET PO (08:46)
[2024-03-02] MEDS: SPIRONOLACTONE 25 MG TABLET 50 MG PO (08:46)
[2024-03-02] MEDS: OMEPRAZOLE 40 MG CAPSULE.DR PO (08:46)
--- NOTE | 2024-03-02 09:09 | SWNOTE1 ---
[facility] is able to accept pt.
--- NOTE | 2024-03-02 09:56 | CM.NOTE ---
Important Message From Medicare discussed with pt, pt verbalizes understanding and signs paper. Original given to pt and copy placed in pt's chart.
--- NOTE | 2024-03-02 10:02 | SWNOTE1 ---
Pt is discharging today. SW sent dc med rec, dc summary, CRF, and physician notes from the weekend to [facility].
--- NOTE | 2024-03-02 10:30 | PT.DAILY ---
Physical Therapy Daily Note PT Daily Note/Assess Start: 02/28/24 15:06 Freq: Status: Active Protocol: Document 03/02/24 10:26 CONSTANCE (Rec: 03/02/24 10:30 CONSTANCE [id number]) Physical Therapy Daily Note/Assessment Time In/Time Out Time In 10:10 Time Out 10:24 Pain In Pain N/A Pain Out Pain N/A Subjective Subjective Pt supine upon arrival. Agrees to PT. Planned dc today - home with home health care. Therapeutic Activity Time Therapeutic Activity 10 Minutes (minutes) Therapeutic Activity 1 Units Therapeutic Activity Treatment Bed Mobility Ability Standby Assistance Chair Transfer Minimum Assist Ability Therapeutic Activity Supine>sit SBA with increased time needed to advance LE Comments 's. Using handrail pt is able to advance upper body without any outside assistance. Pt sits EOB unsupported without LOB. Good static seated balance. Pt performs sit>stand with Swetha to RW. Pt amb 100' with RW, SBA with slow kiya. Needs to use restroom. Descends to toilet using grab bar. Sit>stand using grab bar SBA - able to perform pericare herself. Pt then amb 5' with RW to sink to wash hands. Then to BS chair. Pt remains in BS chair - denies any further needs at this time. remains in BS chair with present awaiting DC. Total Physical Therapy Time Total Therapy 10 Minutes Total Physical 1 Therapy Units Summary Daily Note Summary Improved gait endurance. COnt to need Swetha for sit> stand transfer from low surface. Planned dc with [facility].
== END 2024-03-02 11:17 | disposition home health service (06) | DRG 641 ==
LOC: ER 11:36 → MS 12:27
PROVIDERS: Admitting Provider Family Medicine; Emergency Provider Emergency Medicine; PCP Family Medicine; Visit Provider Family Medicine
DX: E87.70 Fluid overload, unspecified (principal); N39.0 Urinary tract infection, site not specified; L03.116 Cellulitis of left lower limb; L03.115 Cellulitis of right lower limb; R60.0 Localized edema; R00.0 Tachycardia, unspecified; R06.03 Acute respiratory distress; J47.9 Bronchiectasis, uncomplicated; N18.30 Chronic kidney disease, stage 3 unspecified; I12.9 Hypertensive chronic kidney disease with stage 1 through stage 4 chronic kidney disease, or unspecified chronic kidney disease; K21.9 Gastro-esophageal reflux disease without esophagitis; S90.822A Blister (nonthermal), left foot, initial encounter; S90.821A Blister (nonthermal), right foot, initial encounter; D72.829 Elevated white blood cell count, unspecified; R55 Syncope and collapse; Z90.49 Acquired absence of other specified parts of digestive tract; Z96.641 Presence of right artificial hip joint
CPT/HCPCS: 36415; 71045; 80048; 81001; 83880; 84484; 85007; 85025; 85027; 85378; 93005; 94640; 94667; 94668; 94761; 97161; 97165; 97530; 99285; G0378; J0696

== ENCOUNTER 2024-03-11 12:30 | Inpatient (IN) | payer MEDICARE, OTHER, SELFPAY ==
[2024-03-11] VITALS (28 sets, daily range): BP systolic 106–148; BP diastolic 66–106; PULSE 58–117; TEMP 36.4–37.1; O2SAT 93–100; BMI 21.8; BMI 22.0
--- NOTE | 2024-03-11 12:54 | ECG_ITS ---
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
--- NOTE | 2024-03-11 12:54 | XR_ITS ---
The [address] [address] Patient Name: DARRYL ZAYAS MRN: [id number] date: 1950 Sex: F Assigned Patient Location: ER Current Patient Location: ER Accession/Order Number: [id number] Exam Date: 03/11/2024 13:45 Report Date: 03/11/2024 14:03 At the request of: FLORENCE ALFREDO Procedure: XR chest 1V EXAMINATION: XR chest 1V HISTORY: weak COMPARISON: XR chest 02/28/2024 FINDINGS: LUNGS: Mild opacities within right lung base obscuring the diaphragm margin and lateral costophrenic angle. Suspect prominent kyphoscoliosis. Hyperexpanded lungs from COPD. Left lung base opacity likely represents a prominent pericardial fat pad. VASCULATURE: No increased pulmonary vasculature. PLEURA: No pneumothorax, effusion, or pleural thickening. CARDIAC: No cardiomegaly or cardiac silhouette abnormality. MEDIASTINUM: No visible mass or adenopathy. BONES: No fracture or visible bone lesion. OTHER: Negative. XR/XR chest 1V IMPRESSION: 1. Limited examination due to patient positioning. 2. Chronic changes of COPD. 3. Mild acute infiltrates versus atelectasis within right lung base and likely small right pleural effusion. Electronically authenticated by: MARYBETH MORALES Date: 03/11/2024 14:03
--- NOTE | 2024-03-11 12:58 | ED_ITS ---
HPI - Weakness General Chief complaint: Weakness Stated complaint: SWOLLEN LEGS Time Seen by Provider: 03/11/24 12:32 Source: patient Mode of arrival: Wheelchair History of Present Illness HPI Narrative: Patient presents to ED complaining of weakness and swelling. She had a home health nurse come over today who evaluated her and was concerned about her swelling as well as her blood sugar being elevated. They contacted her doctor who is Dr. Muller and he instructed them to send her to the emergency room. Patient was recently in the hospital for swelling and not feeling well. She said her legs did get better while she was in the hospital and they have been wrapping them however the swelling has now increased again. The states her medication is still at the pharmacy and they have been unable to restart her home medication. The swelling has increased and she is feeling more weak than her normal. They said they checked her blood sugar and it was 220. She said she is not a diabetic. She said she was on steroids when she was in the hospital but has not been on them in about a week. Patient states her legs are painful due to the swelling. She denies any chest pain or abdominal pain. Related Data Home Medications ?Medication ?Instructions ?Recorded ?Confirmed colchicine 0.6 mg capsule 0.6 mg PO DAILY 08/13/23 03/11/24 fluticasone furoate 200 1 inh inhalation DAILY 08/13/23 03/11/24 mcg-vilanterol 25 mcg/dose inhalation powder (Breo Ellipta) oxycodone 5 mg tablet 5 mg PO DAILY PRN pain (scale 08/13/23 03/11/24 score 4-6) albuterol sulfate 2.5 mg/3 mL 2.5 mg inhalation Q6H PRN 09/17/23 03/11/24 (0.083 %) solution for nebulization shortness of breath or wheezing calcitonin (salmon) 200 1 spray intranasal DAILY 02/13/24 03/11/24 unit/actuation nasal spray albuterol sulfate 90 mcg/actuation 2 inh inhalation Q4H PRN shortness 02/28/24 03/11/24 aerosol inhaler (Ventolin HFA) of breath or wheezing bumetanide 1 mg tablet 1 mg PO DAILY 02/28/24 03/11/24 tramadol 50 mg tablet 50 mg PO Q8H PRN pain 02/28/24 03/11/24 Previous Rx's ?Medication ?Instructions ?Recorded pantoprazole 40 mg tablet,delayed 40 mg PO BID #60 tabs 02/15/24 release (Protonix) Allergies Allergy/AdvReac Type Severity Reaction Status Date / Time aspirin AdvReac Severe shortness Verified 03/11/24 12:41 of breath codeine AdvReac Severe shortness Verified 03/11/24 12:41 of breath morphine AdvReac Severe shortness Verified 03/11/24 12:41 of breath propoxyphene (From Darvon) AdvReac Mild shortness Verified 03/11/24 12:41 of breath Review of Systems ROS Status of ROS 10 or more systems reviewed and unremark able except as noted in history and below [facility] Medical History (Updated 03/11/24 @ 16:26 by Neda Bills DO) Edema, peripheral ?R60.0 - Localized edema (ICD-10) Acute renal failure ?N17.9 - Acute kidney failure, unspecified (ICD-10) Vomiting ?R11.10 - Vomiting, unspecified (ICD-10) 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) Elevated brain natriuretic peptide (BNP) level ?R79.89 - Other specified abnormal findings of blood chemistry (ICD-10) WHITNEY (acute kidney injury) ?N17.9 - Acute kidney failure, unspecified (ICD-10) Vitamin D deficiency ?E55.9 - Vitamin D deficiency, unspecified (ICD-10) Vitamin B deficiency ?E53.9 - Vitamin B deficiency, unspecified (ICD-10) Osteoporosis ?M81.0 - Age-related osteoporosis without current pathological fracture (ICD- 10) Benign neoplasm of ear ?D23.20 - Other benign neoplasm of skin of unspecified ear and external auricular canal (ICD-10) Insomnia ?G47.00 - Insomnia, unspecified (ICD-10) Gout ?M10.9 - Gout, unspecified (ICD-10) GERD (gastroesophageal reflux disease) ?K21.9 - Gastro-esophageal reflux disease without esophagitis (ICD-10) Eczema ?L30.9 - Dermatitis, unspecified (ICD-10) COPD (chronic obstructive pulmonary disease) ?J44.9 - Chronic obstructive pulmonary disease, unspecified (ICD-10) Asthma ?J45.909 - Unspecified asthma, uncomplicated (ICD-10) Surgical History (Updated 02/28/24 @ 11:48 by Lizzeth Vivar, LILLY) Hx of cardiac cath ?Z98.890 - Other specified postprocedural states (ICD-10) History of bronchoscopy ?Z98.890 - Other specified postprocedural states (ICD-10) 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.2 - Acquired absence of lung [part of] (ICD-10) History of repair of hiatal hernia ?Z98.890 - Other specified postprocedural states (ICD-10) ?Z87.19 - Personal history of other diseases of the digestive system (ICD-10) History of lumpectomy of left breast ?Z98.890 - Other specified postprocedural states (ICD-10) History of hip surgery ?Z98.890 - Other specified postprocedural states (ICD-10) Hx of cholecystectomy ?Z90.49 - Acquired absence of other specified parts of digestive tract (ICD- 10) H/O cataract extraction ?Z98.49 - Cataract extraction status, unspecified eye (ICD-10) History of arthroplasty of right hip ?Z96.641 - Presence of right artificial hip joint (ICD-10) History of laparoscopic appendectomy ?Z90.49 - Acquired absence of other specified parts of digestive tract (ICD- 10) Family History (Updated 02/28/24 @ 11:48 by Lizzeth Vivar, LILLY) Other Breast cancer Dementia Heart disease Stroke Social History Within the past year, how often did you have a drink containing alcohol: never Within the past year, how often did you have six or more drinks on one occasion: never Score interpretation: A score less than 3 is consistent with normal alcohol consumption. 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 Cardiovascular: Sinus tachycardia, no murmur.] Respiratory: Diminished breath sounds bilateral bases, respirations are non- labored, breath sounds are equal.] Chest wall: [No tenderness, no deformity.] Gastrointestinal: [Soft, nontender, non distended, normal bowel sounds.] MSK: 5 out of 5 muscle strength x 4 extremities patient has 4+ edema bilateral lower extremities with generalized tenderness in the lower extremities. She does have normal distal pulses and sensation and motor Psychiatric: [Cooperative, appropriate mood & affect.] Neurological: [Alert and oriented to person, place, time, and situation, no focal neurological deficit observed.] Constitutional Vital Signs, click to edit/add: Last Vital Signs Temp 98.7 F 03/11/24 12:41 Pulse 94 H 03/11/24 15:30 Resp 17 03/11/24 15:30 BP 107/87 03/11/24 15:30 Pulse Ox 100 03/11/24 14:10 O2 Del Method Room Air 03/11/24 12:41 Course Vital Signs Vital signs: Vital Signs Temperature 98.7 F 03/11/24 12:41 Pulse Rate 58 L 03/11/24 12:41 Respiratory Rate 18 03/11/24 12:41 Blood Pressure 148/82 H 03/11/24 12:41 Pulse Oximetry 100 03/11/24 12:41 Oxygen Delivery Method Room Air 03/11/24 12:41 Temperature 98.7 F 03/11/24 12:41 Pulse Rate 94 H 03/11/24 15:30 Respiratory Rate 17 03/11/24 15:30 Blood Pressure 107/87 03/11/24 15:30 Pulse Oximetry 100 03/11/24 14:10 Oxygen Delivery Method Room Air 03/11/24 12:41 MDM - Weakness MDM Narrative Medical decision making narrative: Patient will be admitted to the hospital for further care. Patient has an elevated white blood cell count at 21. She also has an elevated BNP and peripheral edema. She will need diuresis. I spoke to Dr. Muller who will admit the patient as long as her troponin on the second check does not elevate. Troponin actually went down slightly on the second lab draw. Patient is chronically elevated on her troponin. Patient will be mated here for care. COVID is negative. UA does not show any infection. Chest x-ray clear. Unknown source of infection or reason for the elevated white blood cell count. Patient is, care plan for admission Differential Diagnosis Differential diagnosis: Likely hypoglycemia, sepsis, dehydration and other (Viral syndrome, CHF, NSTEMI, hyperglycemia) Medical Records Attestation: I reviewed the patient's medical records. Lab Data Attestation: I reviewed the patient's lab results. Labs: Lab Results 03/11/24 03/11/24 03/11/24 Range/Units 13:05 14:20 14:25 WBC 21.7 H (4.0-11.0) 10^3/uL RBC 4.71 (4.20-5.40) 10^6/uL Hgb 12.3 (12.0-16.0) g/dL Hct 38.6 (36.0-48.0) % MCV 82.0 (81.0-99.0) fL MCH 26.1 L (26.7-34.0) pg MCHC 31.9 (29.9-35.2) g/dL RDW 18.5 H (11.0-15.0) % Plt Count 261 (150-450) 10^3/uL MPV 12.4 (9.5-13.5) fL Seg Neuts % (Manual) 75.0 (43.0-75.0) Band Neutrophils % 6.0 H (0-5) % Lymphocytes % (Manual) 6.0 L (20.5-60.0) % Monocytes % (Manual) 7.0 (1.7-12.0) % Eosinophils % (Manual) 0.0 L (0.9-7.0) % Basophils % (Manual) 0.0 L (0.2-2.0) % Metamyelocytes % 5.0 Myelocytes % 1.0 Neutrophils # (Manual) 16.27 H (1.4-6.5) 10^3/uL Band Neutrophils # 1.3 H (0.0-0.3) 10^3/uL Lymphocytes # (Manual) 1.30 (1.20-3.80) 10^3/uL Monocytes # (Manual) 1.51 H (0.30-0.80) 10^3/uL Eosinophils # (Manual) 0.00 (0.00-0.70) 10^3/uL Basophils # (Manual) 0.00 (0.00-0.10) 10^3/uL Metamyelocytes # 1.08 Myelocytes # 0.21 PT 11.0 (9.0-11.6) sec INR 1.04 Sodium 131 L (136-145) mmol/L Potassium 4.7 (3.5-5.1) mmol/L Chloride 96 L (98-107) mmol/L Carbon Dioxide 27.2 (21.0-32.0) mmol/L Anion Gap 12.5 BUN 50.0 H (7.0-18.0) mg/dL Creatinine 2.31 H (0.55-1.02) mg/dL Est GFR ( Amer) 25 L (>=60 mL/min/1.73m^2) Est GFR (Non-Af Amer) 21 L (>=60 mL/min/1.73m^2) BUN/Creatinine Ratio 21.6 Glucose 144 H (74-106) mg/dL Lactate 1.9 (0.4-2.0) mmol/L Calcium 9.1 (8.5-10.1) mg/dL Total Bilirubin 1.0 (0.2-1.0) mg/dL AST 21 (15-37) U/L ALT 47 (14-59) U/L Alkaline Phosphatase 83 (46-116) U/L Troponin I High Sens 56.5 H* (4.0-51.3) pg/mL NT-Pro-B Natriuret Pep 1719.0 (<=1800.0) pg/mL Total Protein 6.3 L (6.4-8.2) g/dL Albumin 3.2 L (3.4-5.0) g/dL Globulin 3.1 g/dL Albumin/Globulin Ratio 1.0 Urine Color Yellow (YELLOW) Urine Clarity Sl cloudy (CLEAR) Urine pH 5.5 (5.0-9.0) Ur Specific [place] >=1.030 A (1.005-1.025) Urine Protein Trace (NEG/TRACE) mg/dL Urine Glucose (UA) Negative (NEGATIVE) mg/dL Urine Ketones Negative (NEGATIVE) mg/dL Urine Occult Blood Negative (NEGATIVE) Urine Nitrite Negative (NEGATIVE) Urine Bilirubin Small A (NEGATIVE) Urine Urobilinogen 0.2 (0.2-1.0) EU/dL Ur Leukocyte Esterase Negative (NEGATIVE) SARS-CoV-2 Ag (CV2AG) Negative (NEGATIVE) 03/11/24 Range/Units 15:34 WBC (4.0-11.0) 10^3/uL RBC (4.20-5.40) 10^6/uL Hgb (12.0-16.0) g/dL Hct (36.0-48.0) % MCV (81.0-99.0) fL MCH (26.7-34.0) pg MCHC (29.9-35.2) g/dL RDW (11.0-15.0) % Plt Count (150-450) 10^3/uL MPV (9.5-13.5) fL Seg Neuts % (Manual) (43.0-75.0) Band Neutrophils % (0-5) % Lymphocytes % (Manual) (20.5-60.0) % Monocytes % (Manual) (1.7-12.0) % Eosinophils % (Manual) (0.9-7.0) % Basophils % (Manual) (0.2-2.0) % Metamyelocytes % Myelocytes % Neutrophils # (Manual) (1.4-6.5) 10^3/uL Band Neutrophils # (0.0-0.3) 10^3/uL Lymphocytes # (Manual) (1.20-3.80) 10^3/uL Monocytes # (Manual) (0.30-0.80) 10^3/uL Eosinophils # (Manual) (0.00-0.70) 10^3/uL Basophils # (Manual) (0.00-0.10) 10^3/uL Metamyelocytes # Myelocytes # PT (9.0-11.6) sec INR Sodium (136-145) mmol/L Potassium (3.5-5.1) mmol/L Chloride (98-107) mmol/L Carbon Dioxide (21.0-32.0) mmol/L Anion Gap BUN (7.0-18.0) mg/dL Creatinine (0.55-1.02) mg/dL Est GFR ( Amer) (>=60 mL/min/1.73m^2) Est GFR (Non-Af Amer) (>=60 mL/min/1.73m^2) BUN/Creatinine Ratio Glucose (74-106) mg/dL Lactate (0.4-2.0) mmol/L Calcium (8.5-10.1) mg/dL Total Bilirubin (0.2-1.0) mg/dL AST (15-37) U/L ALT (14-59) U/L Alkaline Phosphatase (46-116) U/L Troponin I High Sens 53.6 H* (4.0-51.3) pg/mL NT-Pro-B Natriuret Pep (<=1800.0) pg/mL Total Protein (6.4-8.2) g/dL Albumin (3.4-5.0) g/dL Globulin g/dL Albumin/Globulin Ratio Urine Color (YELLOW) Urine Clarity (CLEAR) Urine pH (5.0-9.0) Ur Specific [place] (1.005-1.025) Urine Protein (NEG/TRACE) mg/dL Urine Glucose (UA) (NEGATIVE) mg/dL Urine Ketones (NEGATIVE) mg/dL Urine Occult Blood (NEGATIVE) Urine Nitrite (NEGATIVE) Urine Bilirubin (NEGATIVE) Urine Urobilinogen (0.2-1.0) EU/dL Ur Leukocyte Esterase (NEGATIVE) SARS-CoV-2 Ag (CV2AG) (NEGATIVE) ECG Data Attestation: I personally reviewed and interpreted this ECG as follows: Interpretation: EKG INTERPRETATION Time: [] 1251 Rate: [] 100 Rhythm: _ [] Sinus tachycardia ST segments: _ [] No acute ST elevation or depression T waves: _ [] Ectopy: _ [] P wave/AL interval: _ [] QRS interval: _ [] QT interval: _ [] Comparison: _ [] Comparison EKG date: [] Performed by: [self] Discharge Plan Discharge Chief Complaint: Weakness Clinical Impression: CHF (congestive heart failure), Edema, Weakness Patient Disposition: Admitted As Inpatient Time of Disposition Decision: 16:26 Condition: Fair Prescriptions / Home Meds: No Action calcitonin (salmon) 200 unit/actuation spray,non-aerosol 1 spray intranasal DAILY pantoprazole [Protonix] 40 mg tablet,delayed release (DR/EC) 40 mg PO BID Qty: 60 11RF fluticasone furoate-vilanterol [Breo Ellipta] 200-25 mcg/dose blister with device 1 inh inhalation DAILY colchicine 0.6 mg capsule 0.6 mg PO DAILY oxycodone 5 mg tablet 5 mg PO DAILY PRN (Reason: pain (scale score 4-6)) albuterol sulfate 2.5 mg /3 mL (0.083 %) solution for nebulization 2.5 mg inhalation Q6H PRN (Reason: shortness of breath or wheezing) albuterol sulfate [Ventolin HFA] 90 mcg/actuation HFA aerosol inhaler 2 inh INHALATION Q4H PRN (Reason: shortness of breath or wheezing) bumetanide 1 mg tablet 1 mg PO DAILY tramadol 50 mg tablet 50 mg PO Q8H PRN (Reason: pain) Print Language: Martiniquais Referrals: Zack Muller MD [Primary Care Provider] - 1 week
[2024-03-11 13:22] LABS: Hematocrit 38.6 % (36.0-48.0); Hemoglobin 12.3 g/dL (12.0-16.0); Mean Corpuscular HGB Conc 31.9 g/dL (29.9-35.2); Mean Corpuscular Hemoglobin 26.1 pg (26.7-34.0); Mean Platelet Volume 12.4 fL (9.5-13.5); Platelet Count 261 10^3/uL (150-450); Red Blood Count 4.71 10^6/uL (4.20-5.40); Red Cell Distribution Width 18.5 % (11.0-15.0); White Blood Count 21.7 10^3/uL (4.0-11.0)
[2024-03-11 13:33] LABS: INR 1.04
[2024-03-11 13:35] LABS: Alanine Aminotransferase 47 U/L (14-59); Albumin Level 3.2 g/dL (3.4-5.0); Alkaline Phosphatase 83 U/L (46-116); Anion Gap 12.5; Aspartate Amino Transferase 21 U/L (15-37); BUN Creatinine Ratio 21.6; Calcium 9.1 mg/dL (8.5-10.1); Carbon Dioxide 27.2 mmol/L (21.0-32.0); Chloride 96 mmol/L (98-107); Estimated GFR (African America 25 (>=60 mL/min/1.73m^2); Estimated GFR (Non-African Ame 21 (>=60 mL/min/1.73m^2); Globulin 3.1 g/dL; Glucose 144 mg/dL (74-106); Potassium 4.7 mmol/L (3.5-5.1); Sodium 131 mmol/L (136-145); Total Protein 6.3 g/dL (6.4-8.2)
[2024-03-11 13:37] LABS: Lactate/Lactic Acid 1.9 mmol/L (0.4-2.0)
[2024-03-11 13:46] LABS: Troponin I High Sensitivity 56.5 pg/mL (4.0-51.3)
[2024-03-11 13:48] LABS: Band Neutrophils Absolute 1.3 10^3/uL (0.0-0.3); Segmented Neut Absolute Manual 16.27 10^3/uL (1.4-6.5)
[2024-03-11 13:49] LABS: Metamyelocytes Absolute Manual 1.08; Monocytes Absolute Manual 1.51 10^3/uL (0.30-0.80); Myelocytes Absolute Manual 0.21
[2024-03-11 14:44] LABS: Bilirubin Urine SMALL (NEGATIVE); Blood Urine NEGATIVE (NEGATIVE); Clarity Urine SL CLOUDY (CLEAR); Color Urine YELLOW (YELLOW); Glucose Urine UA NEGATIVE (NEGATIVE); Ketones Urine NEGATIVE (NEGATIVE); Leukocyte Esterase Urine NEGATIVE (NEGATIVE); Nitrite Urine NEGATIVE (NEGATIVE); Protein Urine TRACE mg/dL (NEG/TRACE); Specific Gravity Urine >=1.030 (1.005-1.025); Urobilinogen Urine 0.2 EU/dL (0.2-1.0); pH Urine 5.5 (5.0-9.0)
[2024-03-11 14:47] LABS: Urine Microscopic Indicated NO
[2024-03-11 14:52] LABS: Internal Control Within Normal Limits; SARS-CoV-2 Ag NEGATIVE (NEGATIVE)
[2024-03-11 16:00] LABS: Troponin I High Sensitivity 53.6 pg/mL (4.0-51.3)
--- OUTSIDE RECORDS SUMMARY | 2024-03-11 17:09 | XMS_ITS | CCD ---
Author Organization [facility] Care Team Providers Care Traveling Secretary Name Role Phone NAYY ., DR CARREON [...] Consulting Unavailable Nayy, Velma Primary Care Physician [phone] MD Galileo Cleary Attending Provider [phone] Galileo Cleary Attending Unavailable Nill, Galileo Jarrett Admitting Unavailable NILL, Galileo Jarrett Attending Unavailable NILL, Galileo Jarrett Attending Unavailable HoyVelma Referring Unavailable NILLGalileo Attending Unavailable Allergies Allergy Classification Reported Allergen(s) Allergy Type Date of Onset Reaction(s) Facility (3 sources) Aspirin; Translations: [aspirin] Drug Allergy [address] [facility] Repository (3 sources) Codeine; Translations: [codeine] Drug Allergy [address] [facility] Repository (3 sources) Morphine; Translations: [morphine] Drug Allergy [address] [facility] Repository (2 sources) Propoxyphene; Translations: [Darvon] Drug Allergy [address] [facility] Repository (1 source) Sulfamethoxazole / Trimethoprim Drug Allergy [address] [facility] Repository (3 sources) Acetaminophen / HYDROcodone; Translations: [acetaminophen-hydro codone] Drug Allergy Dyspnea (finding) [facility] (2 sources) Aspirin; Translations: [aspirin] Drug Allergy Dyspnea (finding) [facility] (2 sources) Codeine; Translations: [codeine] Drug Allergy Dyspnea (finding) [facility] (2 sources) Morphine; Translations: [morphine] Drug Allergy Dyspnea (finding) [facility] (3 sources) Propoxyphene; Translations: [propoxyphene] Drug Allergy 9 Dyspnea (finding) [facility] (2 sources) Sulfamethoxazole; Translations: [sulfamethoxazole] Drug Allergy 9 Difficulty Breathing [facility] (2 sources) Trimethoprim; Translations: [trimethoprim] Drug Allergy 9 Difficulty Breathing [facility] (1 source) Aspirin Drug Allergy 9 [facility] (1 source) Codeine Drug Allergy 9 [facility] (1 source) Morphine Drug Allergy 9 [facility] (1 source) Propoxyphene Drug Allergy 9 [facility] Repository Medications Current Medications Medication Drug [...] sources) Calcitonin Start: 05-26-2018 End: 06-02-2018 Calcitonin ([place]) Active 1 SPRAYS NASAL Daily 2.7 30 [...] for choosing us for your care. Chelsea [facility] General Surgery Office/Clini c Noteon [...] Immunizations Vaccine Date Status Comments SARS-CoV-2 (COVID-19) mRNAMUL.ORD![id number] 12/07/2021 Recorded SARSCoV2 mRNA(wbcseikjp-mmwx-ockbc s) vac 07/14/2021 Recorded SARS-CoV-2 (COVID-19) mRNA BNT-162b2 vax 12/27/2020 Recorded SARS-CoV-2 (COVID-19) mRNA BNT-162b2 vax 05/18/2020 Recorded 2023-07-19: TPV70 SARS-CoV-2 (COVID-19) mRNA BNT-162b2 vax 04/27/2020 Recorded 2023-07-19: TPV70 Normal [facility] Comment on above: Result Comment: Elec tronically Signed By: MELL MONGE, Galileo Agrawalbr\Date and Time Signed: 09/24/23 14:47 EDT Cruz 09-18-2023 L Specimen: [id number] Received: 09/19/23 Status: KISHAN Garnett Num: [id number] Spec Type: Surgical Subm Dr: Galileo Cleary MD FACS Tissues: A Soft Tissue/Surgical Margin-Other than Tumor,Mass,Lip or Angella (RT EAR) Procedures: HE/4, Gross/Micro L4 Age/ Patient Sex Location Account Attending Physician Ilana Moore 73/F [place] [id number] Galileo Cleary MD FACS SPEC NUM: [id number] RECD: 09/19/23 STATUS: INGRIDNicole GARNETT NUM: [id number] MARCO: 09/18/23-[address]: Galileo Cleary MD FACS ENTERED: 09/19/23-[address] [facility] [address]: Con Romero SPEC TYPE: Surgical [...] bisected and entirely submitted in A1. Specimen: [id number] Received: 09/19/23 Status: KISHAN Tamir Num: [id number] Spec Type: Surgical Subm Dr: Galileo Cleary MD FACS Tissues: A Soft Tissue/Surgical Margin-Other than Tumor,Mass,Lip or Angella (RT EAR) Procedures: HE/Melissa, Gross/Micro L4 Patient: OscarIlana L [id number] (Continued) Specimen: [id number] Received: 09/19/23 (Continued) Signed (signature on file) Cookie Evangelista MD 09/23/23 1129 Specimen: [id number] Received: 09/19/23 Status: KISHAN Coxalisha Num: [id number] Spec Type: Surgical Subm Dr: Galileo Cleary MD FACS Tissues: A Soft Tissue/Surgical Margin-Other than Tumor,Mass,Lip or Angella (RT EAR) Procedures: CLAUDE/Melissa, Gross/Micro L4 Patient: Ilana Moore [id number] (Continued) Specimen: [id number] Received: 09/19/23 (Continued) CPT Codes 87184 Specimen: [id number] Received: 09/19/23 Status: KISHAN Garnett Num: [id number] Spec Type: Surgical Subm Dr: Galileo Cleary MD FACS Tissues: A Soft Tissue/Surgical Margin-Other than Tumor,Mass,Lip or Angella (RT EAR) Procedures: /Melissa, Gross/Micro L4 Patient: Ilana Moore [id number] (Continued) Signed (signature on file) Cookie Evangelista MD 09/23/23 1129 Normal [facility] Consent for Procedure/Surger yon 08-02-2023 Consent for Procedure/Surgery [id number] Normal [facility] Facesheeton 08-01-2023 Facesheet [id number] Chelsea [facility] Ambulatory Visit Summaryon 0 07-31-2023 Ambulatory [...] for choosing us for your care. Normal [facility] MG MAMM SCREEN 3D ALLEN CADon 05-14-2022 MG MAMM SCREEN 3D ALLEN CAD Patient: ILANA MOORE Exam Date: 05/14/2022 : 1950 Gender:F Ordering : DR VELMA MULLER . Admission #: [id number] Family : Order #: [id number] CLICK HERE TO VIEW EXAM RADIOLOGY REPORT [...] liver cancer at age 66. LOCATION: [facility] BREAST COMPOSITION: Scattered areas fibroglandular density. FINDINGS: [...] M.D. on 05/16/2022 at 13:[address] [facility] INSULINon 02-08-2022 Insulin 6.6 uIU/mL Normal 2.6-24.[address] [facility] Comment on above: Performed By: #### C BC #### [facility] [address] [place] [address] Dr. Lupe Evangelista CBC AUTO DIFFon 02-07-2022 BASO # 0.1 103/ul Normal 0.0-0.1 [facility] Comment on above: Performed By: #### C BC #### [facility] [address] [place] [address] Dr. Lupe Evangelista Basophils/100 WBC (Bld) 0.7 % Normal 0.2-2.0 [facility] Comment on above: Performed By: #### C BC #### [facility] [address] [place] [address] Dr. Lupe Evangelista EO # 0.4 103/ul Normal 0.0-0.7 [facility] Comment on above: Performed By: #### C BC #### [facility] [address] [place] [address] Dr. Lupe Evangelista Eosinophils/100 WBC (Bld) 5.4 % Normal 0.9-7.0 [facility] Comment on above: Performed By: #### C BC #### [facility] [address] [place] [address] Dr. Lupe Evangelista Erythrocyte distribution width (RBC) [Ratio] 15.9 % Critically high 11.0-15.0 [facility] Comment on above: Performed By: #### C BC #### [facility] [address] [place] [address] Dr. Lupe Evangelista Hematocrit (Bld) [Volume fraction] 39.8 % Normal 36.0-48.[address] [facility] Comment on above: Performed By: #### C BC #### [facility] [address] [place] [address] Dr. Lupe Evangelista Hemoglobin (Bld) [Mass/Vol] 11.6 g/dL Critically low 12.0-16.[address] [facility] Comment on above: Performed By: #### C BC #### [facility] [address] [address] [address] Lupe Evangelista IG # 0.02 10e3/ul Normal 0.00-0.03 [facility] Comment on above: Performed By: #### C BC #### [facility] [address] [address] [address] Lupe Evangelista IG % 0.2 % Normal 0.0-0.5 [facility] Comment on above: Performed By: #### C BC #### [facility] [address] [place] [address] Dr. Lupe Evangelista LYMPH # 2.9 103/ul Normal 1.2-3.8 [facility] Comment on above: Performed By: #### C BC #### [facility] [address] [place] [address] Dr. Lupe Evangelista Lymphocytes/100 WBC (Bld) 35.2 % Normal 20.5-60.0 [facility] Comment on above: Performed By: #### C BC #### [facility] [address] [place] [address] Dr. Lupe Evangelista MANUAL DIFF REQ NO Normal [facility] Comment on above: Performed By: #### C BC #### [facility] [address] [place] [address] Dr. Lupe Evangelista MCH (RBC) [Entitic mass] 23.4 pg Critically low 26.7-34.0 [facility] Comment on above: Performed By: #### C BC #### [facility] [address] [place] [address] Dr. Lupe Evangelista MCHC (RBC) [Mass/Vol] 29.1 g/dL Critically low 29.9-35.2 [facility] Comment on above: Performed By: #### C BC #### [facility] [address] [place] [address] Dr. Lupe Evangelista MCV (RBC) [Entitic vol] 80.4 fL Critically low 81.0-99.0 [facility] Comment on above: Performed By: #### C BC #### [facility] [address] [place] [address] Dr. Lupe Evangelista MONO # 0.8 103/ul Normal 0.3-0.[address] [facility] Comment on above: Performed By: #### C BC #### [facility] [address] [place] [address] Dr. Lupe Evangelista Monocytes/100 WBC (Bld) 9.8 % Normal 1.7-12.[address] [facility] Comment on above: Performed By: #### C BC #### [facility] [address] [place] [address] Dr. Lupe Evangelista NEUT # 4.0 103/ul Normal 1.4-6.[address] [facility] Comment on above: Performed By: #### C BC #### [facility] [address] [place] [address] Dr. Lupe Evangelista Neutrophils/100 WBC (Bld) 48.7 % Normal 43.0-75.0 [facility] Comment on above: Performed By: #### C BC #### [facility] [address] [place] [address] Dr. Lupe Evangelista Platelet mean volume (Bld) [Entitic vol] 11.0 fL Normal 9.5-13.[address] [facility] Comment on above: Performed By: #### C BC #### [facility] [address] [place] [address] Dr. Lupe Evangelista PLT 341 103/ul Normal 150-[address] [facility] Comment on above: Performed By: #### C BC #### [facility] [address] [place] [address] Dr. Lupe Evangelista RBC 4.95 106/ul Normal 4.20-5.[address] [facility] Comment on above: Performed By: #### C BC #### [facility] [address] [place] [address] Dr. Lupe Evangelista WBC 8.2 103/ul Normal 4.0-11.[address] [facility] Comment on above: Performed By: #### C BC #### [facility] [address] [place] [address] Dr. Lupe Evangelista FREE THYROXINE INDEX T7on FTI 1.98 Normal 1.30-4.50 [facility] Comment on above: Performed By: #### C BC #### [facility] [address] [address] [address] Lupe Evangelista T3U 31.0 % Normal 30.0-39.0 [facility] Comment on above: Performed By: #### C BC #### [facility] [address] [address] [address] Lupe Evangelista T4 [Mass/Vol] 6.40 ug/dL Normal 4.80-13.90 [facility] Comment on above: Performed By: #### C BC #### [facility] [address] [place] [address] Dr. Lupe Evangelista GLYCOHEMOGLOBIN A1Con 2021 ADA RECOMMENDATION SEE BELOW Normal [facility] Comment on above: Result Comment: ADA RECOMMENDED LIMIT 4.0 - 6.0 ADA THERAPEUTIC TARGET < 7.0 ACTION SUGGESTED > 7.0 Performed By: #### C BC #### [facility] [address] [place] [address] Dr. Lupe Evangelista Glucose [Mass/Vol] 128 mg/dL Normal [facility] Comment on above: Performed By: #### C BC #### [facility] [address] [place] [address] Dr. Lupe Evangelista HbA1c (Bld) [Mass fraction] 6.1 % Normal 4.5-6.2 [facility] Comment on above: Performed By: #### C BC #### [facility] [address] [place] [address] Dr. Lupe Evangelista IRONon 02-07-2022 Iron [Mass/Vol] 44.0 ug/dL Critically low 50.0-170.0 [facility] Comment on above: Performed By: #### I DINO JACOBO #### [facility] [address] [place] [address] Dr. Lupe Evangelista LIPID PROFILEon 02-07-2022 CHOL-HDL RATIO NORM SEE BELOW Normal [facility] Comment on above: Result Comment: 3.3 - 4.4 LOW RISK 4.4 - 7.1 AVERAGE RISK 7.1 - 11.0 MODERATE RISK >11.0 HIGH RISK Performed By: #### C BC #### [facility] [address] [place] [address] Dr. Lupe Evangelista Cholesterol [Mass/Vol] 217 mg/dL Critically high <=200 [facility] Comment on above: Performed By: #### C BC #### [facility] [address] [place] [address] Dr. Lupe Evangelista Cholesterol in HDL [Mass/Vol] 60 mg/dL Normal 40-60 [facility] Comment on above: Performed By: #### C BC #### [facility] [address] [place] [address] Dr. Lupe Evangelista Cholesterol in LDL [Mass/Vol] 136.0 mg/dL Normal [facility] Comment on above: Performed By: #### C BC #### [facility] [address] [place] [address] Dr. Lupe Evangelista Cholesterol.total/C holesterol in HDL [Mass ratio] 3.6 {ratio} Normal [facility] Comment on above: Performed By: #### C BC #### [facility] [address] [place] [address] Dr. Lupe Evangelista HDL NORMAL > or = 60 mg/dl - LO W CARDIOVASCULAR RISK <40 mg/dl - HIGH CARDIOVASCULAR RISK Normal [facility] Comment on above: Performed By: #### C BC #### [facility] [address] [place] [address] Dr. Lupe Evangelista LDL CALC NORMAL SEE BELOW Normal [facility] Comment on above: Result Comment: <100 mg/dl OPTIMAL 100 - 129 mg/dl NEAR OR ABOVE OPTIMAL 130 - 159 mg/dl BORDERLINE HIGH 160 - 189 mg/dl HIGH >190 mg/dl VERY HIGH Performed By: #### C BC #### [facility] [address] [place] [address] Dr. Lupe Evangelista Triglyceride [Mass/Vol] 105 mg/dL Normal <=150 [facility] Comment on above: Performed By: #### C BC #### [facility] [address] [address] [address] Lupe Evangelista VLDL CALC 21.0 mg/dL Normal [facility] Comment on above: Performed By: #### C BC #### [facility] [address] [place] [address] Dr. Lupe Evangelista PROF 14(COMP METB)on 022 Albumin [Mass/Vol] 3.7 g/dL Normal 3.4-5.0 [facility] Comment on above: Performed By: #### C MP, LIPID, TSH, T7 #### [facility] [address] [place] [address] Dr. Lupe Evangelista Albumin/Globulin [Mass ratio] 1.0 {ratio} Normal [facility] Comment on above: Performed By: #### C MP, LIPID, TSH, T7 #### [facility] [address] [place] [address] Dr. Lupe Evangelista ALP [Catalytic activity/Vol] 86 U/L Normal 46-116 [facility] Comment on above: Performed By: #### C MP, LIPID, TSH, T7 #### [facility] [address] [place] [address] Dr. Lupe Evangelista ALT [Catalytic activity/Vol] 16 U/L Normal 14-59 [facility] Comment on above: Performed By: #### C MP, LIPID, TSH, T7 #### [facility] [address] [place] [address] Dr. Lupe Evangelista Anion gap [Moles/Vol] 7.0 mmol/L Normal [facility] Comment on above: Performed By: #### C MP, LIPID, TSH, T7 #### [facility] [address] [place] [address] Dr. Lupe Evangelista AST [Catalytic activity/Vol] 14 U/L Critically low 15-37 [facility] Comment on above: Performed By: #### C MP, LIPID, TSH, T7 #### [facility] [address] [place] [address] Dr. Lupe Evangelista Bilirubin [Mass/Vol] 0.4 mg/dL Normal 0.2-1.0 [facility] Comment on above: Performed By: #### C MP, LIPID, TSH, T7 #### [facility] [address] [address] [address] Lupe Evangelista Calcium [Mass/Vol] 8.9 mg/dL Normal 8.5-10.1 [facility] Comment on above: Performed By: #### C MP, LIPID, TSH, T7 #### [facility] [address] [place] [address] Dr. Lupe Evangelista Chloride [Moles/Vol] 102 mmol/L Normal 98-107 [facility] Comment on above: Performed By: #### C MP, LIPID, TSH, T7 #### [facility] [address] [place] [address] Dr. Lupe Evangelista CO2 [Moles/Vol] 34.3 mmol/L Critically high 21.0-32.0 [facility] Comment on above: Performed By: #### C MP, LIPID, TSH, T7 #### [facility] [address] [place] [address] Dr. Lupe Evangelista Creatinine [Mass/Vol] 0.73 mg/dL Normal 0.55-1.02 [facility] Comment on above: Performed By: #### C MP, LIPID, TSH, T7 #### [facility] [address] [place] [address] Dr. Lupe Evangelista EGFR-AF GUAMANIAN >60 Normal >=60 [facility] Comment on above: Performed By: #### C MP, LIPID, TSH, T7 #### [facility] [address] [place] [address] Dr. Lupe Evangelista EGFR-NON AF GUAMANIAN >60 Normal >=60 [facility] Comment on above: Performed By: #### C MP, LIPID, TSH, T7 #### [facility] [address] [place] [address] Dr. Lupe Evangelista Globulin (S) [Mass/Vol] 3.8 g/dL Normal [facility] Comment on above: Performed By: #### C MP, LIPID, TSH, T7 #### [facility] [address] [place] [address] Dr. Lupe Evangelista Glucose [Mass/Vol] 111 mg/dL Critically high 74-[address] [facility] Comment on above: Performed By: #### C MP, LIPID, TSH, T7 #### [facility] [address] [address] [address] Lupe Evangelista Potassium [Moles/Vol] 4.3 mmol/L Normal 3.5-5.1 [facility] Comment on above: Performed By: #### C MP, LIPID, TSH, T7 #### [facility] [address] [address] [address] Lupe Evangelista Protein [Mass/Vol] 7.5 g/dL Normal 6.4-8.2 [facility] Comment on above: Performed By: #### C MP, LIPID, TSH, T7 #### [facility] [address] [place] [address] Dr. Lupe Evangelista Sodium [Moles/Vol] 139 mmol/L Normal 136-145 [facility] Comment on above: Performed By: #### C MP, LIPID, TSH, T7 #### [facility] [address] [place] [address] Dr. Lupe Evangelista Urea nitrogen [Mass/Vol] 11.0 mg/dL Normal 7.0-18.0 [facility] Comment on above: Performed By: #### C MP, LIPID, TSH, T7 #### [facility] [address] [place] [address] Dr. Lupe Evangelista Urea nitrogen/Creatinine [Mass ratio] 15.1 mg/mg Normal [facility] Comment on above: Performed By: #### C MP, LIPID, TSH, T7 #### [facility] [address] [place] [address] Dr. Lupe Evangelista TSHon 02-07-2022 TSH 2.224 uIU/mL Normal 0.358-3.740 [facility] Comment on above: Performed By: #### C BC #### [facility] [address] [place] [address] Dr. Lupe Evangelista VITAMIN D 25 OHon 02-07-2022 VIT D 25-OH 17.8 ng/mL Normal [facility] Comment on above: Performed By: #### I DONNELL VITAD #### [facility] [address] [address] [address] Lupe Evangelista VIT D RANGES SEE BELOW Normal [facility] Comment on above: Result Comment: <20 ng/mL Vit D deficient 20 - <30 ng/mL Vit D insufficient 30 - 100 ng/mL Vit D sufficient >100 ng/mL Potential Toxicity Performed By: #### I DONNELL VITAD #### [facility] [address] [address] [address] Lupe Evangelista XR CHEST 2 Von [...] ARIANNE BRAGA Date: 2022-02-07 17:[address] [facility] CBC AUTO DIFFon 12-01-2021 BASO # 0.1 103/ul Normal 0.0-0.1 [facility] Comment on above: Performed By: #### C BC #### [facility] [address] [place] [address] Dr. Lupe Evangelista Basophils/100 WBC (Bld) 0.8 % Normal 0.2-2.0 [facility] Comment on above: Performed By: #### C BC #### [facility] [address] [place] [address] Dr. Lupe Evangelista EO # 0.4 103/ul Normal 0.0-0.7 [facility] Comment on above: Performed By: #### C BC #### [facility] [address] [place] [address] Dr. Lupe Evangelista Eosinophils/100 WBC (Bld) 5.4 % Normal 0.9-7.0 [facility] Comment on above: Performed By: #### C BC #### [facility] [address] [place] [address] Dr. Lupe Evangelista Erythrocyte distribution width (RBC) [Ratio] 16.3 % Critically high 11.0-15.0 [facility] Comment on above: Performed By: #### C BC #### [facility] [address] [place] [address] Dr. Lupe Evangelista Hematocrit (Bld) [Volume fraction] 36.0 % Normal 36.0-48.0 [facility] Comment on above: Performed By: #### C BC #### [facility] [address] [place] [address] Dr. Lupe Evangelista Hemoglobin (Bld) [Mass/Vol] 10.4 g/dL Critically low 12.0-16.0 [facility] Comment on above: Performed By: #### C BC #### [facility] [address] [place] [address] Dr. Lupe Evangelista IG # 0.04 10e3/ul Critically high 0.00-0.03 [facility] Comment on above: Performed By: #### C BC #### [facility] [address] [place] [address] Dr. Lupe Evangelista IG % 0.6 % Critically high 0.0-0.5 [facility] Comment on above: Performed By: #### C BC #### [facility] [address] [place] [address] Dr. Lupe Evangelista LYMPH # 1.9 103/ul Normal 1.2-3.8 [facility] Comment on above: Performed By: #### C BC #### [facility] [address] [place] [address] Dr. Lupe Evangelista Lymphocytes/100 WBC (Bld) 29.1 % Normal 20.5-60.0 [facility] Comment on above: Performed By: #### C BC #### [facility] [address] [place] [address] Dr. Lupe Evangelista MANUAL DIFF REQ NO Normal [facility] Comment on above: Performed By: #### C BC #### [facility] [address] [place] [address] Dr. Lupe Evangelista MCH (RBC) [Entitic mass] 24.9 pg Critically low 26.7-34.0 [facility] Comment on above: Performed By: #### C BC #### [facility] [address] [place] [address] Dr. Lupe Evangelista MCHC (RBC) [Mass/Vol] 28.9 g/dL Critically low 29.9-35.2 [facility] Comment on above: Performed By: #### C BC #### [facility] [address] [place] [address] Dr. Lupe Evangelista MCV (RBC) [Entitic vol] 86.1 fL Normal 81.0-99.0 [facility] Comment on above: Performed By: #### C BC #### [facility] [address] [place] [address] Dr. Lupe Evangelista MONO # 0.7 103/ul Normal 0.3-0.8 [facility] Comment on above: Performed By: #### C BC #### [facility] [address] [place] [address] Dr. Lupe Evangelista Monocytes/100 WBC (Bld) 10.7 % Normal 1.7-12.0 [facility] Comment on above: Performed By: #### C BC #### [facility] [address] [place] [address] Dr. Lupe Evangelista NEUT # 3.4 103/ul Normal 1.4-6.[address] [facility] Comment on above: Performed By: #### C BC #### [facility] [address] [place] [address] Dr. Lupe Evangelista Neutrophils/100 WBC (Bld) 53.4 % Normal 43.0-75.0 [facility] Comment on above: Performed By: #### C BC #### [facility] [address] [place] [address] Dr. Lupe Evangelista Platelet mean volume (Bld) [Entitic vol] 10.6 fL Normal 9.5-13.5 [facility] Comment on above: Performed By: #### C BC #### [facility] [address] [address] [address] Lupe Evangelista PLT 320 103/ul Normal 150-[address] [facility] Comment on above: Performed By: #### C BC #### [facility] [address] [place] [address] Dr. Lupe Evangelista RBC 4.18 106/ul Critically low 4.20-5.40 [facility] Comment on above: Performed By: #### C BC #### [facility] [address] [place] [address] Dr. Lupe Evangelista WBC 6.4 103/ul Normal 4.0-11.[address] [facility] Comment on above: Performed By: #### C BC #### [facility] [address] [place] [address] Dr. Lupe Evangelista CRPon 12-01-2021 CRP 1.6 mg/dL Critically high <=1.0 [facility] Comment on above: Performed By: #### C RP #### [facility] [address] [place] [address] Dr. Lupe Evangelista CBC AUTO DIFFon 11-29-2021 BASO # 0.1 103/ul Normal 0.0-0.[address] [facility] Comment on above: Performed By: #### C BC #### [facility] [address] [place] [address] Dr. Lupe Evangelista Basophils/100 WBC (Bld) 0.6 % Normal 0.2-2.[address] [facility] Comment on above: Performed By: #### C BC #### [facility] [address] [place] [address] Dr. Lupe Evangelista EO # 0.4 103/ul Normal 0.0-0.[address] [facility] Comment on above: Performed By: #### C BC #### [facility] [address] [place] [address] Dr. Lupe Evangelista Eosinophils/100 WBC (Bld) 5.4 % Normal 0.9-7.0 [facility] Comment on above: Performed By: #### C BC #### [facility] [address] [place] [address] Dr. Lupe Evangelista Erythrocyte distribution width (RBC) [Ratio] 16.5 % Critically high 11.0-15.[address] [facility] Comment on above: Performed By: #### C BC #### [facility] [address] [place] [address] Dr. Lupe Evangelista Hematocrit (Bld) [Volume fraction] 36.1 % Normal 36.0-48.0 [facility] Comment on above: Performed By: #### C BC #### [facility] [address] [place] [address] Dr. Lupe Evangelista Hemoglobin (Bld) [Mass/Vol] 10.6 g/dL Critically low 12.0-16.0 [facility] Comment on above: Performed By: #### C BC #### [facility] [address] [place] [address] Dr. Lupe Evangelista IG # 0.03 10e3/ul Normal 0.00-0.03 [facility] Comment on above: Performed By: #### C BC #### [facility] [address] [place] [address] Dr. Lupe Evangelista IG % 0.4 % Normal 0.0-0.[address] [facility] Comment on above: Performed By: #### C BC #### [facility] [address] [place] [address] Dr. Lupe Evangelista LYMPH # 2.3 103/ul Normal 1.2-3.[address] [facility] Comment on above: Performed By: #### C BC #### [facility] [address] [place] [address] Dr. Lupe Evangelista Lymphocytes/100 WBC (Bld) 29.9 % Normal 20.5-60.[address] [facility] Comment on above: Performed By: #### C BC #### [facility] [address] [place] [address] Dr. Lupe Evangelista MANUAL DIFF REQ NO Normal [facility] Comment on above: Performed By: #### C BC #### [facility] [address] [place] [address] Dr. Lupe Evangelista MCH (RBC) [Entitic mass] 25.4 pg Critically low 26.7-34.0 [facility] Comment on above: Performed By: #### C BC #### [facility] [address] [place] [address] Dr. Lupe Evangelista MCHC (RBC) [Mass/Vol] 29.4 g/dL Critically low 29.9-35.[address] [facility] Comment on above: Performed By: #### C BC #### [facility] [address] [place] [address] Dr. Lupe Evangelista MCV (RBC) [Entitic vol] 86.4 fL Normal 81.0-99.0 [facility] Comment on above: Performed By: #### C BC #### [facility] [address] [place] [address] Dr. Lupe Evangelista MONO # 0.9 103/ul Critically high 0.3-0.8 [facility] Comment on above: Performed By: #### C BC #### [facility] [address] [place] [address] Dr. Lupe Evangelista Monocytes/100 WBC (Bld) 10.9 % Normal 1.7-12.[address] [facility] Comment on above: Performed By: #### C BC #### [facility] [address] [place] [address] Dr. Lupe Evangelista NEUT # 4.1 103/ul Normal 1.4-6.[address] [facility] Comment on above: Performed By: #### C BC #### [facility] [address] [place] [address] Dr. Lupe Evangelista Neutrophils/100 WBC (Bld) 52.8 % Normal 43.0-75.[address] [facility] Comment on above: Performed By: #### C BC #### [facility] [address] [place] [address] Dr. Lupe Evangelista Platelet mean volume (Bld) [Entitic vol] 11.2 fL Normal 9.5-13.5 [facility] Comment on above: Performed By: #### C BC #### [facility] [address] [place] [address] Dr. Lupe Evangelista PLT 351 103/ul Normal 150-[address] [facility] Comment on above: Performed By: #### C BC #### [facility] [address] [address] [address] Lupe Evangelista RBC 4.18 106/ul Critically low 4.20-5.40 [facility] Comment on above: Performed By: #### C BC #### [facility] [address] [place] [address] Dr. Lupe Evangelista WBC 7.8 103/ul Normal 4.0-11.0 [facility] Comment on above: Performed By: #### C BC #### [facility] [address] [place] [address] Dr. Lupe Evangelista CRPon 11-29-2021 CRP 1.7 mg/dL Critically high <=1.0 [facility] Comment on above: Performed By: #### C RP, CMP #### [facility] [address] [place] [address] Dr. Lupe Evangelista CULTURE BLOODon 11-29-2021 Microscopic examination of blood, culture Culture Observations: NO GROWTH AT 5 DAYS. Normal [facility] Comment on above: Performed By: #### C BC #### [facility] [address] [place] [address] Dr. Lupe Evangelista Microscopic examination of blood, culture Culture Observations: NO GROWTH AT 5 DAYS. Normal [facility] Comment on above: Performed By: #### C BC #### [facility] [address] [place] [address] Dr. Lupe Evangelista PROF 14(COMP METB)on 022 Albumin [Mass/Vol] 3.5 g/dL Normal 3.4-5.0 [facility] Comment on above: Performed By: #### C RP, CMP #### [facility] [address] [place] [address] Dr. Lupe Evangelista Albumin/Globulin [Mass ratio] 0.9 {ratio} Normal [facility] Comment on above: Performed By: #### C RP, CMP #### [facility] [address] [address] [address] Lupe Evangelista ALP [Catalytic activity/Vol] 105 U/L Normal 46-116 [facility] Comment on above: Performed By: #### C RP, CMP #### [facility] [address] [place] [address] Dr. Lupe Evangelista ALT [Catalytic activity/Vol] 15 U/L Normal 14-59 [facility] Comment on above: Performed By: #### C RP, CMP #### [facility] [address] [place] [address] Dr. Lupe Evangelista Anion gap [Moles/Vol] 7.3 mmol/L Normal [facility] Comment on above: Performed By: #### C RP, CMP #### [facility] [address] [place] [address] Dr. Lupe Evangelista AST [Catalytic activity/Vol] 21 U/L Normal 15-37 [facility] Comment on above: Performed By: #### C RP, CMP #### [facility] [address] [place] [address] Dr. Lupe Evangelista Bilirubin [Mass/Vol] 0.4 mg/dL Normal 0.2-1.0 [facility] Comment on above: Performed By: #### C RP, CMP #### [facility] [address] [place] [address] Dr. Lupe Evangelista Calcium [Mass/Vol] 8.5 mg/dL Normal 8.5-10.1 [facility] Comment on above: Performed By: #### C RP, CMP #### [facility] [address] [place] [address] Dr. Lupe Evangelista Chloride [Moles/Vol] 102 mmol/L Normal 98-[address] [facility] Comment on above: Performed By: #### C RP, CMP #### [facility] [address] [address] [address] Lupe Evangelista CO2 [Moles/Vol] 31.9 mmol/L Normal 21.0-32.0 [facility] Comment on above: Performed By: #### C RP, CMP #### [facility] [address] [place] [address] Dr. Lupe Evangelista Creatinine [Mass/Vol] 0.76 mg/dL Normal 0.55-1.[address] [facility] Comment on above: Performed By: #### C RP, CMP #### [facility] [address] [place] [address] Dr. Lupe Evangelista EGFR-AF GUAMANIAN >60 Normal >=60 [facility] Comment on above: Performed By: #### C RP, CMP #### [facility] [address] [place] [address] Dr. Lupe Evangelista EGFR-NON AF GUAMANIAN >60 Normal >=[address] [facility] Comment on above: Performed By: #### C RP, CMP #### [facility] [address] [place] [address] Dr. Lupe Evangelista Globulin (S) [Mass/Vol] 3.9 g/dL Normal [facility] Comment on above: Performed By: #### C RP, CMP #### [facility] [address] [place] [address] Dr. Lupe Evangelista Glucose [Mass/Vol] 92 mg/dL Normal 74-106 [facility] Comment on above: Performed By: #### C RP, CMP #### [facility] [address] [place] [address] Dr. Lupe Evangelista Potassium [Moles/Vol] 4.2 mmol/L Normal 3.5-5.[address] [facility] Comment on above: Performed By: #### C RP, CMP #### [facility] [address] [place] [address] Dr. Lupe Evangelista Protein [Mass/Vol] 7.4 g/dL Normal 6.4-8.2 [facility] Comment on above: Performed By: #### C RP, CMP #### [facility] [address] [place] [address] Dr. Lupe Evangelista Sodium [Moles/Vol] 137 mmol/L Normal 136-145 [facility] Comment on above: Performed By: #### C RP, CMP #### [facility] [address] [address] [address] Lupe Evangelista Urea nitrogen [Mass/Vol] 8.0 mg/dL Normal 7.0-18.0 [facility] Comment on above: Performed By: #### C RP, CMP #### [facility] [address] [address] [address] Lupe Evangelista Urea nitrogen/Creatinine [Mass ratio] 10.5 mg/mg Normal [facility] Comment on above: Performed By: #### C RP, CMP #### [facility] [address] [place] [address] Dr. Lupe Evangelista SED RATE [facility] 2021 SED RATE 27 mm/hr Normal <=30 [facility] Comment on above: Performed By: #### S EDR #### [facility] [address] [place] [address] Dr. Lupe Evangelista XR KNEE RT 4V [...] by: HUNTER LAWRENCE Date: 2021-11-15 21:55 Normal [facility] Vital Signs Date Time Vital Sign Value Performing Clinician [place] 07-31-2023 14:30-0400 Blood Pressure Location Galileo Mcnamara [facility] [place] 07-31-2023 14:30-0400 Diastolic blood pressure 62 mm[Hg] Galileo Mcnamara [facility] 07-31-2023 14:30-0400 Heart rate 68 /min Galileo CAMACHOL [facility] 07-31-2023 14:30-0400 Respiratory rate 16 /min Galileo CAMACHOL [facility] 07-31-2023 14:30-0400 Systolic blood pressure 120 mm[Hg] [facility] Encounter Date Encounter Type Care Provider Facility Start: 09-24-2023 End: 09-24-2023 ambulatory Galileo R MELL Facility: [facility] Start: 09-24-2023 End: 09-24-2023 Patient encounter procedure [facility] Start: 09-18-2023 End: 09-18-2023 ambulatory Galileo Cleary [facility] Work Phone: Start: 09-18-2023 End: 09-18-2023 Departed Referred MD Galileo Cleary Work Phone: [facility] [place] [facility] Start: 09-18-2023 End: 09-18-2023 ambulatory Galileo CLEARY Facility:[id number] Start: 07-31-2023 End: 07-31-2023 ambulatory Galileo R NILRenu Facility: [facility] Start: 07-31-2023 End: 07-31-2023 Patient encounter [facility] Start: 07-19-2023 ambulatory Galileo CLEARY Facility:Fabricio [...] Provider Fa cility 12-07-2021 SARS-CoV-2 (COVID-19 ) [id number].[id number] Galileo NILL [facility] 07-14-2021 SARS-CoV-2 mRNA (megyervaibm-dsjs-bnetb se) vaccine Galileo NILL [facility] 12-27-2020 SARS-CoV-2 (COVID-19 ) mRNA BNT-162b2 vax Galileo NILL [facility] 05-18-2020 SARS-CoV-2 (COVID-19 ) mRNA BNT-162b2 vax Galileo NILL [facility] Comment on above: Result Comment: 2023: [id number] 04-27-2020 SARS-CoV-2 (COVID-19 ) mRNA BNT-162b2 vax Galileo CLEARY [facility] Comment on above: Result Comment: 2023: [id number] Payers Date Payer Category Payer Self-pay [id number] 1960 Medicare [id number] 1960 Unknown [id number] 1950 Unknown [id number] 1950 Unknown [id number] 1949 Unknown [id number] 1949 Unknown [id number] 1949 Unknown [id number] 1949 Unknown [id number] 1949 Unknown [id number] 1949 Unknown [id number] Unknown Regular Insurance [id number] Unknown [id number] Worker's Compensation [employer] [facility] [id number] Social History Date Type Detail Facility Start: 07-31-2023 Tobacco smoking status Never s moked tobacco (finding) [facility] At Female [facility] Start: 1950 Sex Assigned At Female F [facility] Functional Status Date Assessment Result Facility 07-31-2023 [facility] [place] Clinical Note 07-31-2023 Note Date & Type [...] plan excisional biopsy under local anesthesia at [facility], for definitive diagnosis and treatment; informed [...] Immunizations Vaccine Date Status Comments SARS-CoV-2 (COVID-19) [id number].[id number] 12/07/2021 Recorded SARSCoV2 mRNA(hylgkybhz-nifs-swjrkp) vac 07/14/2021 Recorded SARS-CoV-2 (COVID-19) mRNA BNT-162b2 vax 12/27/2020 Recorded SARS-CoV-2 (COVID-19) mRNA BNT-162b2 vax 05/18/2020 Recorded 2023-07-19: [id number] SARS-CoV-2 (COVID-19) mRNA BNT-162b2 vax 04/27/2020 Recorded 2023-07-19: [id number] [facility] Comment on above: Result Comment: Elec tronically Signed By: MELL MONGE, Galileo Roberts\Date and Time Signed: 07/31/23 15:12 EDT Evaluation + Plan note Note Date & Type Note Facility Evaluation + Plan note No data available for this section [facility] Evaluation note Note Date & Type Note Facility [facility] Hospital Discharge instructions Note Date & Type Note Facility Hospital Discharge instructions No data available for this section [facility] Progress note Note Date & Type Note Facility Progress note No data available for this section [facility] Summary Purpose Family History No Family [...] CREATED AUTHOR AUTHOR'S ORGANIZ ATION 09/24/2023 [facility] DATE CREATED AUTHOR AUTHOR'S ORGANIZ ATION 09/26/2023 [facility] Patient Care team informatio n (unrecognized [...] BE BASED ON THE PRIMARY CLINICAL RECORDS. [employer] provides no warranty or guarantee of the accuracy or completeness of information in this document.
--- NOTE | 2024-03-11 17:14 | PHOTOS ---
left foot and lower leg
--- NOTE | 2024-03-11 17:26 | P.HP_ITS ---
HPI H&P: HPI History of Present Illness Chief complaint: EDEMA, CHF, LEUKOCYTOSIS, WEEKNESS, Narrative: Received a phone call from the home health nurse, patient with increasing weakness and some peripheral edema. Recommend with increasing weakness she present to the emergency room for evaluation. In the emergency room found to have significant respiratory distress, tachycardia, leukocytosis with bandemia, hyponatremia and acute renal failure secondary to sepsis --repeat lactate, if lactate positive would meet criteria for severe sepsis. Unable to give aggressive fluid resuscitation secondary to her history of acute combined congestive heart failure which was recently treated When I saw patient up on the medical surgical floor, resting comfortably in bed, having some pain with nurse doing dressing changes Opioid HPI Opioid Management Most Recent Pain and Opioid Data: Last Pain Scale 6 03/11/24 17:41 03/11/24 Last Pain Intensity 6 02/29/24 11:17 02/29/24 Last Pain Assessment 03/11/24 17:41 Last ED Pain Assessment 03/11/24 13:20 Last ORT Total Score 0 03/11/24 17:08 03/11/24 Last ORT Risk Category Low Risk 03/11/24 17:08 03/11/24 Review of Systems ROS Status of ROS 10 or more systems reviewed and unremark able except as noted in history and below [facility] Medical History (Updated 03/11/24 @ 16:26 by Neda Bills DO) Edema, peripheral ?R60.0 - Localized edema (ICD-10) Acute renal failure ?N17.9 - Acute kidney failure, unspecified (ICD-10) Vomiting ?R11.10 - Vomiting, unspecified (ICD-10) 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) Elevated brain natriuretic peptide (BNP) level ?R79.89 - Other specified abnormal findings of blood chemistry (ICD-10) WHITNEY (acute kidney injury) ?N17.9 - Acute kidney failure, unspecified (ICD-10) Vitamin D deficiency ?E55.9 - Vitamin D deficiency, unspecified (ICD-10) Vitamin B deficiency ?E53.9 - Vitamin B deficiency, unspecified (ICD-10) Osteoporosis ?M81.0 - Age-related osteoporosis without current pathological fracture (ICD- 10) Benign neoplasm of ear ?D23.20 - Other benign neoplasm of skin of unspecified ear and external auricular canal (ICD-10) Insomnia ?G47.00 - Insomnia, unspecified (ICD-10) Gout ?M10.9 - Gout, unspecified (ICD-10) GERD (gastroesophageal reflux disease) ?K21.9 - Gastro-esophageal reflux disease without esophagitis (ICD-10) Eczema ?L30.9 - Dermatitis, unspecified (ICD-10) COPD (chronic obstructive pulmonary disease) ?J44.9 - Chronic obstructive pulmonary disease, unspecified (ICD-10) Asthma ?J45.909 - Unspecified asthma, uncomplicated (ICD-10) Surgical History (Updated 02/28/24 @ 11:48 by Lizzeth Vivar RN) Hx of cardiac cath ?Z98.890 - Other specified postprocedural states (ICD-10) History of bronchoscopy ?Z98.890 - Other specified postprocedural states (ICD-10) 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.2 - Acquired absence of lung [part of] (ICD-10) History of repair of hiatal hernia ?Z98.890 - Other specified postprocedural states (ICD-10) ?Z87.19 - Personal history of other diseases of the digestive system (ICD-10) History of lumpectomy of left breast ?Z98.890 - Other specified postprocedural states (ICD-10) History of hip surgery ?Z98.890 - Other specified postprocedural states (ICD-10) Hx of cholecystectomy ?Z90.49 - Acquired absence of other specified parts of digestive tract (ICD- 10) H/O cataract extraction ?Z98.49 - Cataract extraction status, unspecified eye (ICD-10) History of arthroplasty of right hip ?Z96.641 - Presence of right artificial hip joint (ICD-10) History of laparoscopic appendectomy ?Z90.49 - Acquired absence of other specified parts of digestive tract (ICD- 10) Family History (Updated 02/28/24 @ 11:48 by Lizzeth Vivar RN) Other Breast cancer Dementia Heart disease Stroke Social History Within the past year, how often did you have a drink containing alcohol: never Within the past year, how often did you have six or more drinks on one occasion: never Score interpretation: A score less than 3 is consistent with normal alcohol consumption. 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 Highest level of school completed/degree received: high school graduate Little interest or pleasure in doing things: not at all Feeling down, depressed, or hopeless: not at all Meds Home Medications and Allergies Home Medications ?Medication ?Instructions ?Recorded ?Confirmed ?Type colchicine 0.6 mg capsule 0.6 mg PO DAILY 08/13/23 03/11/24 History fluticasone furoate 200 1 inh inhalation DAILY 08/13/23 03/11/24 History mcg-vilanterol 25 mcg/dose inhalation powder (Breo Ellipta) oxycodone 5 mg tablet 5 mg PO DAILY PRN pain (scale 08/13/23 03/11/24 History score 4-6) albuterol sulfate 2.5 mg/3 mL 2.5 mg inhalation Q6H PRN 09/17/23 03/11/24 History (0.083 %) solution for nebulization shortness of breath or wheezing calcitonin (salmon) 200 1 spray intranasal DAILY 02/13/24 03/11/24 History unit/actuation nasal spray pantoprazole 40 mg tablet,delayed 40 mg PO BID #60 tabs 02/15/24 03/11/24 Rx release (Protonix) albuterol sulfate 90 mcg/actuation 2 inh inhalation Q4H PRN shortness 02/28/24 03/11/24 History aerosol inhaler (Ventolin HFA) of breath or wheezing bumetanide 1 mg tablet 1 mg PO DAILY 02/28/24 03/11/24 History tramadol 50 mg tablet 50 mg PO Q8H PRN pain 02/28/24 03/11/24 History Allergies Allergy/AdvReac Type Severity Reaction Status Date / Time aspirin AdvReac Severe shortness Verified 03/11/24 12:41 of breath codeine AdvReac Severe shortness Verified 03/11/24 12:41 of breath morphine AdvReac Severe shortness Verified 03/11/24 12:41 of breath propoxyphene (From Darvon) AdvReac Mild shortness Verified 03/11/24 12:41 of breath Exam Constitutional Vital Signs, click to edit/add: Last Vital Signs Temp 98.7 F 12/18/24 12:41 Pulse 94 H 03/11/24 15:30 Resp 17 03/11/24 15:30 BP 107/87 03/11/24 15:30 Pulse Ox 100 03/11/24 14:10 O2 Del Method Room Air 03/11/24 12:41 Documenting provider has reviewed patient's vital signs: yes Common normals: no apparent distress Respiratory Common normals: normal respiratory effort Effort & inspection: tachypneic (Minimal) Auscultation: rhonchi; no rales Cardio Common normals: regular rate, regular rhythm and no murmurs Extremity Common normals: abnormal to inspection (Erythema outside the area of the blister, tender to touch, mild edema) Results Labs Labs: Short CBC 03/11/24 Range/Units 13:05 WBC 21.7 H (4.0-11.0) 10^3/uL Hgb 12.3 (12.0-16.0) g/dL Hct 38.6 (36.0-48.0) % Plt Count 261 (150-450) 10^3/uL BMP 03/11/24 13:05 Sodium 131 L Potassium 4.7 Chloride 96 L Carbon Dioxide 27.2 BUN 50.0 H Creatinine 2.31 H Glucose 144 H Calcium 9.1 Liver Function 03/11/24 Range/Units 13:05 Total Bilirubin 1.0 (0.2-1.0) mg/dL AST 21 (15-37) U/L ALT 47 (14-59) U/L Alkaline Phosphatase 83 (46-116) U/L Albumin 3.2 L (3.4-5.0) g/dL Urine 03/11/24 Range/Units 14:25 Urine Color Yellow (YELLOW) Urine Clarity Sl cloudy (CLEAR) Urine pH 5.5 (5.0-9.0) Ur Specific Thornton >=1.030 A (1.005-1.025) Urine Protein Trace (NEG/TRACE) mg/dL Urine Glucose (UA) Negative (NEGATIVE) mg/dL Assessment and Plan Assessment and Plan (1) Weakness: (2) Edema: (3) CHF (congestive heart failure): (4) Acute renal failure: (5) Edema, peripheral: Plan Admission findings: Sinus tachycardia, respiratory distress, leukocytosis with bandemia, hyponatremia with acute kidney injury (baseline creatinine established at last visit of 1.27, admission creatinine of 2.31, this is 181.9% above baseline, with decreased urine output over the last 6 hours, though put her at stage I acute kidney injury), this is likely secondary to infection of her lower extremities. Blood culture urine culture pending Sepsis with bandemia based on criteria as outlined above-IV antibiotics, with recent hospitalization need to be concerned about nosocomial so we will do Zosyn and linezolid for MRSA coverage. With acute kidney injury we will hold off on vancomycin. Consult to wound. Leukocytosis with bandemia-repeat labs in a.m., blood culture pending, urinalysis unremarkable, try treating sputum culture but lung exam is consistent with her history of bronchiectasis Acute kidney injury is stage I-as outlined above, gentle hydration secondary to her history of acute combined congestive heart failure Bronchiectasis-try vest therapy as well as aerosol treatments. Try to obtain sputum culture. GERD-continue with home medications Admission status: Failed outpatient treatment of cellulitis of lower extremities-requiring IV antibiotics, now with significant leukocytosis and bandemia, acute kidney injury as outlined above with need for slow hydration secondary to acute combined congestive heart failure. Medically necessary treatment for all of these things will span 2 midnights. Inpatient status. Urinary Catheter Management Urinary Catheter Management Straight: Cath placed during this visit: yes Urethral indwelling: No Insertion date: 03/11/24 Insertion time: 14:30
[2024-03-11] MEDS: ACETAMINOPHEN 500 MG TABLET 1000 MG PO (18:05)
[2024-03-11] MEDS: 0.9 % SODIUM CHLORIDE 1,000 ML 60 ML IV (18:05)
[2024-03-11] MEDS: TRAMADOL HCL 50 MG TABLET PO (19:18)
[2024-03-11] MEDS: LINEZOLID IN DEXTROSE 5% 600 MG/300 ML PIGGYBACK 300 MG IV (19:19)
[2024-03-11 19:37] LABS: Free T3 2.64 pg/mL (2.18-3.98); Magnesium 2.3 mg/dL (1.8-2.4); Thyroid Stimulating Hormone 7.186 uIU/mL (0.358-3.740)
[2024-03-11 20:17] LABS: Lactate/Lactic Acid 1.8 mmol/L (0.4-2.0)
[2024-03-11] MEDS: OMEPRAZOLE 40 MG CAPSULE.DR PO (21:11)
[2024-03-11] MEDS: PROSTAT 15 GM PROTEIN/100 CAL 30 ML LIQUID PACKET PO (21:11)
[2024-03-11] MEDS: JUVEN PACKET 1 PACKET PO (21:12)
[2024-03-11] MEDS: ENSURE HP 237 ML LIQUID PO (21:12)
[2024-03-11] MEDS: PIPERACILLIN SODIUM/TAZOBACTAM 3.375 GM in 0.9 % SODIUM CHLORIDE 50 ML IV (21:16)
--- NOTE | 2024-03-11 21:49 | PC.NURSE ---
soft loose stool
[2024-03-11] MEDS: OXYCODONE HCL 5 MG TABLET PO (22:25)
[2024-03-11] MEDS: BUDESONIDE 0.5 MG/2 ML AMPULE NEB IH (23:12)
[2024-03-11] MEDS: IPRATROPIUM/ALBUTEROL SULFATE 3 ML AMPUL.NEB IH (23:12)
--- NOTE | 2024-03-11 23:57 | RESP.RT ---
PATIENT REFUSED VEST. SAID IT HURTS AND SHE DIDN'T WANT IT IN THE ROOM. PATIENT AGREED TO DO PEP THERAPY
[2024-03-12] VITALS (9 sets, daily range): BP systolic 113–134; BP diastolic 65–84; PULSE 85–118; TEMP 36.3–36.8; O2SAT 94–98
[2024-03-12] MEDS: ACETAMINOPHEN 500 MG TABLET 1000 MG PO (00:30)
[2024-03-12] MEDS: OXYCODONE HCL 5 MG TABLET 10 MG PO ×3 (01:10→22:48)
[2024-03-12] MEDS: TRAMADOL HCL 50 MG TABLET PO ×2 (04:33→19:36)
[2024-03-12] MEDS: PIPERACILLIN SODIUM/TAZOBACTAM 3.375 GM in 0.9 % SODIUM CHLORIDE 50 ML IV ×2 (04:34→21:04)
[2024-03-12 06:02] LABS: Hematocrit 31.3 % (36.0-48.0); Hemoglobin 10.2 g/dL (12.0-16.0); Mean Corpuscular HGB Conc 32.6 g/dL (29.9-35.2); Mean Corpuscular Hemoglobin 26.4 pg (26.7-34.0); Mean Corpuscular Volume 81.1 fL (81.0-99.0); Platelet Count 225 10^3/uL (150-450); Red Blood Count 3.86 10^6/uL (4.20-5.40); Red Cell Distribution Width 18.7 % (11.0-15.0); White Blood Count 17.5 10^3/uL (4.0-11.0)
[2024-03-12 06:30] LABS: Alanine Aminotransferase 34 U/L (14-59); Albumin Globulin Ratio 0.9; Albumin Level 2.2 g/dL (3.4-5.0); Alkaline Phosphatase 61 U/L (46-116); Anion Gap 7.7; Aspartate Amino Transferase 21 U/L (15-37); BUN Creatinine Ratio 24.6; Bilirubin Total 0.9 mg/dL (0.2-1.0); Carbon Dioxide 29.6 mmol/L (21.0-32.0); Chloride 101 mmol/L (98-107); Estimated GFR (African America 33 (>=60 mL/min/1.73m^2); Estimated GFR (Non-African Ame 28 (>=60 mL/min/1.73m^2); Globulin 2.5 g/dL; Glucose 126 mg/dL (74-106); Potassium 4.3 mmol/L (3.5-5.1); Sodium 134 mmol/L (136-145); Total Protein 4.7 g/dL (6.4-8.2); Troponin I High Sensitivity 46.5 pg/mL (4.0-51.3)
[2024-03-12 06:47] LABS: Band Neutrophils Absolute 0.5 10^3/uL (0.0-0.3); Monocytes Absolute Manual 0.87 10^3/uL (0.30-0.80)
[2024-03-12 06:50] LABS: Hypochromasia 1+
[2024-03-12 06:51] LABS: Ovalocytes 1+
[2024-03-12 06:52] LABS: Anisocytosis 1+
--- NOTE | 2024-03-12 08:11 | P.PN_ITS ---
Progress Note: Subjective Subjective Interval history: Creased pain persisting, somewhat better on her pain scores overall but still feels pain with ambulation. Cellulitis is likely source of her infection. As her persisting nonproductive cough from her bronchiectasis, no increasing shortness of breath and a goal to lay flat Exam Constitutional Vital Signs, click to edit/add: Last Vital Signs Temp 97.6 F 03/12/24 04:00 Pulse 86 03/12/24 04:00 Resp 18 03/12/24 04:00 BP 113/70 03/12/24 04:00 Pulse Ox 97 03/12/24 04:00 O2 Del Method Room Air 03/12/24 04:00 Documenting provider has reviewed patient's vital signs: yes Common normals: no apparent distress Chest Common normals: inspection of chest normal Respiratory Common normals: normal respiratory effort and no retractions; not clear to ascultation bilaterally Auscultation: rhonchi Cardio Common normals: no JVD, regular rate, regular rhythm and no murmurs Extremity Common normals: abnormal to inspection (Feels like some of the swelling is coming back, dressings in place) Progress Note: Objective Labs Labs: Short CBC 03/11/24 03/12/24 Range/Units 13:05 05:47 WBC 21.7 H 17.5 H (4.0-11.0) 10^3/uL Hgb 12.3 10.2 L (12.0-16.0) g/dL Hct 38.6 31.3 L (36.0-48.0) % Plt Count 261 225 (150-450) 10^3/uL BMP 03/11/24 03/12/24 13:05 05:47 Sodium 131 L 134 L Potassium 4.7 4.3 Chloride 96 L 101 Carbon Dioxide 27.2 29.6 BUN 50.0 H 44.0 H Creatinine 2.31 H 1.79 H Glucose 144 H 126 H Calcium 9.1 8.0 L Liver Function 03/11/24 03/12/24 Range/Units 13:05 05:47 Total Bilirubin 1.0 0.9 (0.2-1.0) mg/dL AST 21 21 (15-37) U/L ALT 47 34 (14-59) U/L Alkaline Phosphatase 83 61 (46-116) U/L Albumin 3.2 L 2.2 L (3.4-5.0) g/dL Urine /18/24 Range/Units 14:25 Urine Color Yellow (YELLOW) Urine Clarity Sl cloudy (CLEAR) Urine pH 5.5 (5.0-9.0) Ur Specific Phen[place] >=1.030 A (1.005-1.025) Urine Protein Trace (NEG/TRACE) mg/dL Urine Glucose (UA) Negative (NEGATIVE) mg/dL Progress Note: A&P Assessment and Plan (1) Weakness: (2) Edema: (3) CHF (congestive heart failure): (4) Acute renal failure: (5) Edema, peripheral: Plan Admission findings: Sinus tachycardia, respiratory distress, leukocytosis with bandemia, hyponatremia with acute kidney injury (baseline creatinine established at last visit of 1.27, admission creatinine of 2.31, this is 181.9% above baseline, with decreased urine output over the last 6 hours, though put her at stage I acute kidney injury), this is likely secondary to infection of her lower extremities. Blood culture, pending, trying to obtain sputum Sepsis with bandemia based on criteria as outlined above-still with significant leukocytosis and left shift, bandemia is improved, so maintain current antibiotics Leukocytosis with bandemia-as above Acute kidney injury is stage I-decreased IV fluid resuscitation, creatinine is better but not to baseline, edema is starting to come back, maintain wraps, will reevaluate dressing change later today Bronchiectasis-try vest therapy as well as aerosol treatments. Try to obtain sputum culture. GERD-continue with home medications Hypothyroidism-will start patient on Synthroid, TSH has been increasing last 2 months Admission status: Failed outpatient treatment of cellulitis of lower extremities-requiring IV antibiotics, now with significant leukocytosis and bandemia, acute kidney injury as outlined above with need for slow hydration secondary to acute combined congestive heart failure. Medically necessary treatment for all of these things will span 2 midnights. Inpatient status. Urinary Catheter Management Urinary Catheter Management Straight: Cath placed during this visit: yes Urethral indwelling: No Insertion date: 03/11/24 Insertion time: 14:30 ? Urinary Catheter Management Urinary Catheter Management Straight: Cath placed during this visit: yes Urethral indwelling: No Insertion date: 03/11/24 Insertion time: 14:30
[2024-03-12] MEDS: COLCHICINE 0.6 MG TABLET PO (08:12)
[2024-03-12] MEDS: LINEZOLID IN DEXTROSE 5% 600 MG/300 ML PIGGYBACK 300 MG IV ×2 (08:12→19:36)
[2024-03-12] MEDS: PROSTAT 15 GM PROTEIN/100 CAL 30 ML LIQUID PACKET PO (08:12)
[2024-03-12] MEDS: ENSURE HP 237 ML LIQUID PO ×2 (08:12→21:03)
[2024-03-12] MEDS: JUVEN PACKET 1 PACKET PO (08:12)
[2024-03-12] MEDS: BUMETANIDE 1 MG TABLET 0.5 MG PO (08:13)
[2024-03-12] MEDS: CALCITONIN,SALMON,SYNTHETIC 30 SPRAY/3.7 ML BOTTLE NS (08:13)
[2024-03-12] MEDS: OMEPRAZOLE 40 MG CAPSULE.DR PO ×2 (08:13→21:03)
--- NOTE | 2024-03-12 09:20 | SWNOTE1 ---
Pt is current with [facility].
--- NOTE | 2024-03-12 09:57 | CM.NOTE ---
Important Message From Medicare discussed with pt, pt verbalizes understanding and signs paper. Original given to pt and copy placed on pt's chart
--- NOTE | 2024-03-12 10:01 | SWNOTE1 ---
SW spoke to case management and pt is still current with [facility]. Pt had voiced that physical therapy from the [employer] has not been in yet, but nursing has. SW to call [facility]. SW spoke to [facility] and they could see nursing was in 3x, but PT had not been in. The coordinator apologized and will make sure physical therapy is out to see pt yariel after discharge. SW to let pt know. Pt also voiced to case management that she is going home no matter what and she does not want to go to rehab even if recommended. ADRIANA sent demographic sheet, ED note, H&P, and progress note to [facility].
[2024-03-12] MEDS: BUDESONIDE 0.5 MG/2 ML AMPULE NEB IH ×2 (11:10→22:38)
[2024-03-12] MEDS: IPRATROPIUM/ALBUTEROL SULFATE 3 ML AMPUL.NEB IH ×2 (11:10→22:38)
[2024-03-12] MEDS: 0.9 % SODIUM CHLORIDE 1,000 ML 40 ML IV (16:24)
--- NOTE | 2024-03-12 19:12 | PC.NURSE ---
soft loose stool
--- NOTE | 2024-03-12 23:14 | PC.NURSE ---
soft loose stool
[2024-03-13 04:00] VITALS: BP 121/72; PULSE 89; TEMP 36.8; O2SAT 95
[2024-03-13] MEDS: PIPERACILLIN SODIUM/TAZOBACTAM 3.375 GM in 0.9 % SODIUM CHLORIDE 50 ML IV ×3 (05:42→21:47)
[2024-03-13] MEDS: LEVOTHYROXINE SODIUM 75 MCG TABLET PO (05:42)
[2024-03-13] MEDS: TRAMADOL HCL 50 MG TABLET PO (05:43)
[2024-03-13 06:04] LABS: Hematocrit 33.4 % (36.0-48.0); Hemoglobin 10.7 g/dL (12.0-16.0); Mean Corpuscular Hemoglobin 26.2 pg (26.7-34.0); Mean Corpuscular Volume 81.9 fL (81.0-99.0); Mean Platelet Volume 12.5 fL (9.5-13.5); Platelet Count 228 10^3/uL (150-450); Red Blood Count 4.08 10^6/uL (4.20-5.40); White Blood Count 16.5 10^3/uL (4.0-11.0)
--- NOTE | 2024-03-13 06:07 | PC.NURSE ---
soft loose stool
[2024-03-13 06:21] LABS: Band Neutrophils Absolute 0.8 10^3/uL (0.0-0.3); Lymphocytes Absolute Manual 1.15 10^3/uL (1.20-3.80); Monocytes Absolute Manual 0.99 10^3/uL (0.30-0.80)
[2024-03-13 06:22] LABS: Metamyelocytes Absolute Manual 0.33
[2024-03-13 06:32] LABS: Alanine Aminotransferase 27 U/L (14-59); Albumin Globulin Ratio 0.8; Albumin Level 1.9 g/dL (3.4-5.0); Alkaline Phosphatase 61 U/L (46-116); Anion Gap 7.7; Aspartate Amino Transferase 16 U/L (15-37); BUN Creatinine Ratio 25.6; Bilirubin Total 0.6 mg/dL (0.2-1.0); Calcium 7.9 mg/dL (8.5-10.1); Carbon Dioxide 28.2 mmol/L (21.0-32.0); Chloride 103 mmol/L (98-107); Estimated GFR (African America 47 (>=60 mL/min/1.73m^2); Estimated GFR (Non-African Ame 39 (>=60 mL/min/1.73m^2); Globulin 2.5 g/dL; Glucose 120 mg/dL (74-106); Potassium 3.9 mmol/L (3.5-5.1); Sodium 135 mmol/L (136-145); Total Protein 4.4 g/dL (6.4-8.2); Troponin I High Sensitivity 37.6 pg/mL (4.0-51.3)
--- NOTE | 2024-03-13 08:19 | P.PN_ITS ---
Progress Note: Subjective Subjective Interval history: Still with significant pain with ambulation. Sounds like she needed an assist yesterday with ambulation. White blood cell count still elevated today. Patient anxious to go home so not certain her answers will be perfectly correct Exam Constitutional Vital Signs, click to edit/add: Last Vital Signs Temp 98.2 F 03/13/24 04:00 Pulse 89 03/13/24 04:00 Resp 18 03/13/24 04:00 BP 121/72 03/13/24 04:00 Pulse Ox 95 03/13/24 04:00 O2 Del Method Room Air 03/13/24 04:00 Documenting provider has reviewed patient's vital signs: yes Common normals: no apparent distress Chest Common normals: inspection of chest normal Respiratory Common normals: normal respiratory effort and no retractions; not clear to ascultation bilaterally Auscultation: rhonchi Cardio Common normals: no JVD, regular rate, regular rhythm and no murmurs Extremity Common normals: abnormal to inspection (Dressings in place, pictures from yesterday showed edema controlled) Progress Note: Objective Labs Labs: Short CBC 03/13/24 Range/Units 05:40 WBC 16.5 H (4.0-11.0) 10^3/uL Hgb 10.7 L (12.0-16.0) g/dL Hct 33.4 L (36.0-48.0) % Plt Count 228 (150-450) 10^3/uL BMP 03/13/24 05:40 Sodium 135 L Potassium 3.9 Chloride 103 Carbon Dioxide 28.2 BUN 34.0 H Creatinine 1.33 H Glucose 120 H Calcium 7.9 L Liver Function 03/13/24 Range/Units 05:40 Total Bilirubin 0.6 (0.2-1.0) mg/dL AST 16 (15-37) U/L ALT 27 (14-59) U/L Alkaline Phosphatase 61 (46-116) U/L Albumin 1.9 L (3.4-5.0) g/dL Progress Note: A&P Assessment and Plan (1) Weakness: (2) Edema: (3) CHF (congestive heart failure): (4) Acute renal failure: (5) Edema, peripheral: Plan Admission findings: Sinus tachycardia, respiratory distress, leukocytosis with bandemia, hyponatremia with acute kidney injury (baseline creatinine established at last visit of 1.27, admission creatinine of 2.31, this is 181.9% above baseline, with decreased urine output over the last 6 hours, though put her at stage I acute kidney injury), this is likely secondary to infection of her lower extremities. Blood culture, pending, trying to obtain sputum Sepsis with bandemia based on criteria as outlined above-leuk cytosis slowly improving, bandemia has resolved, continue with current antibiotics Leukocytosis with bandemia-as above Acute kidney injury is stage I-resolved today, back at baseline, continue low- dose Bumex and saline lock Bronchiectasis-try vest therapy as well as aerosol treatments. Try to obtain sputum culture.-Still unable GERD-continue with home medications Hypothyroidism-will start patient on Synthroid, TSH has been increasing last 2 months Admission status: Failed outpatient treatment of cellulitis of lower extremities-requiring IV antibiotics, now with significant leukocytosis and bandemia, acute kidney injury as outlined above with need for slow hydration secondary to acute combined congestive heart failure. Medically necessary treatment for all of these things will span 2 midnights. Inpatient status. Likely needs 2 more days of IV antibiotics his white blood count is slowly improving Urinary Catheter Management Urinary Catheter Management Straight: Cath placed during this visit: yes Urethral indwelling: No Insertion date: 03/11/24 Insertion time: 14:30 ? Urinary Catheter Management Urinary Catheter Management Straight: Cath placed during this visit: yes Urethral indwelling: No Insertion date: 03/11/24 Insertion time: 14:30
[2024-03-13 08:20] VITALS: BP 126/72; PULSE 88; TEMP 36.6; O2SAT 95
[2024-03-13] MEDS: COLCHICINE 0.6 MG TABLET PO (08:23)
[2024-03-13] MEDS: OMEPRAZOLE 40 MG CAPSULE.DR PO ×2 (08:23→20:16)
[2024-03-13] MEDS: OXYCODONE HCL 5 MG TABLET 10 MG PO ×3 (08:23→20:16)
[2024-03-13] MEDS: BUMETANIDE 1 MG TABLET 0.5 MG PO (08:23)
[2024-03-13] MEDS: ENSURE HP 237 ML LIQUID PO (08:23)
[2024-03-13] MEDS: LINEZOLID IN DEXTROSE 5% 600 MG/300 ML PIGGYBACK 300 MG IV ×2 (08:24→20:20)
[2024-03-13] MEDS: CALCITONIN,SALMON,SYNTHETIC 30 SPRAY/3.7 ML BOTTLE NS (08:28)
[2024-03-13] MEDS: BUDESONIDE 0.5 MG/2 ML AMPULE NEB IH ×2 (10:23→22:02)
[2024-03-13] MEDS: IPRATROPIUM/ALBUTEROL SULFATE 3 ML AMPUL.NEB IH ×3 (10:23→22:02)
--- NOTE | 2024-03-13 10:25 | PT.DAILY ---
Physical Therapy Daily Note PT Daily Note/Assess Start: 03/13/24 10:21 Freq: Status: Active Protocol: Document 03/13/24 10:21 CONSTANCE (Rec: 03/13/24 10:25 CONSTANCE [id number]) Physical Therapy Daily Note/Assessment Time In/Time Out Time In 10:00 Time Out 10:15 Pain In Pain N/A Pain Out Pain N/A Subjective Subjective Pt standing in front of commode upon arrival with nursing. Agrees to PT. Therapeutic Exercise Time Therapeutic Exercise 5 Minutes (minutes) Therapeutic Exercise 0 Units Therapeutic Exercise Treatment Therapeutic Exercise Seated bilat LE strengthening ex complete 10x ea while Treatment sitting unsupported at EOB. Therapeutic Activity Time Therapeutic Activity 8 Minutes (minutes) Therapeutic Activity 1 Units Therapeutic Activity Treatment Chair Transfer Standby Assistance Ability Therapeutic Activity Sit>stand from EOB SBA to RW. Pt amb 36' in room with Comments RW, CGA for safety. Short step length with decreased kiya. Pt to BS chair upon completion with call light in reach and needs met. pt reports feeling nauseous/ stomach rolling. Declines any further activity at this time. Family enters room as I am departing. Total Physical Therapy Time Total Therapy 13 Minutes Total Physical 1 Therapy Units Summary Daily Note Summary Improved transfer ability from EOB to RW. Pt demonstrates short step length. Encouraged pt to amb to restroom vs commode next time as she was able to walk lap in room.
[2024-03-13 10:40] VITALS: PULSE 96; O2SAT 95
--- NOTE | 2024-03-13 10:41 | SWNOTE1 ---
SW received message from Dr. Muller and pt is now agreeable to go to rehab. SW to talk to pt. SW met with pt and in room. Pts voiced that he has been helping her more at home and that she really needs to go to therapy to get stronger. He voiced for her safety. Pt expressed that if it wasn't for [facility] she would go. SW explained that many facilities allow them to sign out for the day and return by midnight the same day. Pt would like SW to check about this. Pt's stated they would like the [facility]. SW to call SW called and spoke to Thomas at [facility], she stated that is fine and many people do that, they just need a heads up. SW let pt and know. Pt stated she is not happy about this, but is agreeable. SW explained Medicare rules to pt and and let them know it is possible pt could go tomorrow if medically stable. They voiced understanding. Referral sent to [facility]. Referral included face sheet, ED note, H&P, provider notes, case management report, wound consult, nursing notes, diagnostic imaging, med list, and PT/OT notes.
--- NOTE | 2024-03-13 11:51 | SWNOTE1 ---
[facility] is able to accept at discharge. SW let pt and know. Pt's asked about transport. SW advised over the weekend transport is limited, always have the option of paying out of pocket for ambulance. Pt's voiced he can transport her over in private vehicle. SW let him know that nursing here and at [facility] will assist in getting her in and out of car. SW updated nurse. Plan is for [facility] skilled once medically stable.
--- NOTE | 2024-03-13 11:53 | SWNOTE1 ---
SW completed HENS online.
--- NOTE | 2024-03-13 13:39 | SWNOTE1 ---
ADRIANA had technical issues with HENS. ADRIANA CALLED [facility] and spoke with Norm. She advised that ADRIANA will have to contact the state and provided ADRIANA with email. ADRIANA sent an email to the state in regards to the HENS update SW not being able to complete a HENS, waiting to hear back. ADRIANA notified Thomas patel [place] who notified Urvashi the social insurance specialist.
[2024-03-13 15:35] VITALS: BMI 21.3
[2024-03-13 16:40] VITALS: PULSE 91; O2SAT 95
[2024-03-13 16:57] VITALS: BP 125/79; PULSE 92; TEMP 36.5; O2SAT 97
[2024-03-13 22:02] VITALS: PULSE 94; O2SAT 95
[2024-03-14] VITALS: BP 123/70; PULSE 101; TEMP 36.6; O2SAT 94
[2024-03-14] MEDS: OXYCODONE HCL 5 MG TABLET 10 MG PO ×2 (03:35→11:00)
[2024-03-14 04:00] VITALS: BP 143/68; PULSE 93; TEMP 36.5; O2SAT 93
[2024-03-14] MEDS: LEVOTHYROXINE SODIUM 75 MCG TABLET PO (06:02)
[2024-03-14] MEDS: PIPERACILLIN SODIUM/TAZOBACTAM 3.375 GM in 0.9 % SODIUM CHLORIDE 50 ML IV (06:19)
[2024-03-14 06:20] LABS: Hematocrit 35.1 % (36.0-48.0); Hemoglobin 11.3 g/dL (12.0-16.0); Mean Corpuscular HGB Conc 32.2 g/dL (29.9-35.2); Mean Corpuscular Hemoglobin 26.3 pg (26.7-34.0); Mean Corpuscular Volume 81.6 fL (81.0-99.0); Mean Platelet Volume 11.9 fL (9.5-13.5); Platelet Count 274 10^3/uL (150-450); Red Cell Distribution Width 19.2 % (11.0-15.0); White Blood Count 18.8 10^3/uL (4.0-11.0)
[2024-03-14 07:15] LABS: Band Neutrophils Absolute 0.4 10^3/uL (0.0-0.3); Lymphocytes Absolute Manual 3.57 10^3/uL (1.20-3.80); Monocytes Absolute Manual 0.94 10^3/uL (0.30-0.80); Poikilocytosis 1+; Segmented Neut Absolute Manual 13.91 10^3/uL (1.4-6.5)
[2024-03-14 07:16] LABS: Ovalocytes 1+; Tear Drop Cells 1+
[2024-03-14 08:23] LABS: Alanine Aminotransferase 26 U/L (14-59); Albumin Globulin Ratio 0.8; Albumin Level 1.9 g/dL (3.4-5.0); Alkaline Phosphatase 74 U/L (46-116); Anion Gap 11.7; Aspartate Amino Transferase 21 U/L (15-37); BUN Creatinine Ratio 17.7; Bilirubin Total 0.4 mg/dL (0.2-1.0); Calcium 7.8 mg/dL (8.5-10.1); Carbon Dioxide 27.2 mmol/L (21.0-32.0); Chloride 100 mmol/L (98-107); Estimated GFR (African America 51 (>=60 mL/min/1.73m^2); Estimated GFR (Non-African Ame 42 (>=60 mL/min/1.73m^2); Globulin 2.4 g/dL; Glucose 117 mg/dL (74-106); Potassium 3.9 mmol/L (3.5-5.1); Sodium 135 mmol/L (136-145); Total Protein 4.3 g/dL (6.4-8.2); Troponin I High Sensitivity 33.2 pg/mL (4.0-51.3)
--- NOTE | 2024-03-14 08:56 | P.DS_ITS ---
DS: Providers Provider Date of admission: 03/11/24 16:54 Primary care physician: Zack Muller MD Consults: 03/11/24 17:27 Consult to Pharmacy Routine Consulting Provider: Reason for consultation: Please [place] me when Med Rec is Updated Has provider been notified: No Occupational Therapy Eval and Treat Routine Reason for consultation: Only if needed for Rehab Has provider been notified: No Physical Therapy Eval and Treat Routine Reason for consultation: Eval and Treat Has provider been notified: No DS: Diagnosis Discharge Diagnosis (1) Weakness: (2) Edema: (3) CHF (congestive heart failure): (4) Acute renal failure: (5) Edema, peripheral: Plan Admission findings: Sinus tachycardia, respiratory distress, leukocytosis with bandemia, hyponatremia with acute kidney injury (baseline creatinine established at last visit of 1.27, admission creatinine of 2.31, this is 181.9% above baseline, with decreased urine output over the last 6 hours, though put her at stage I acute kidney injury), this is likely secondary to infection of her lower extremities. Blood culture, pending, trying to obtain sputum Sepsis with bandemia based on criteria as outlined above-leuk cytosis slowly improving, bandemia has resolved, continue with current antibiotics Leukocytosis with bandemia-as above Acute kidney injury is stage I-resolved today, back at baseline, continue low- dose Bumex and saline lock Bronchiectasis-try vest therapy as well as aerosol treatments. Try to obtain sputum culture.-Still unable GERD-continue with home medications Hypothyroidism-will start patient on Synthroid, TSH has been increasing last 2 months Admission status: Failed outpatient treatment of cellulitis of lower extremities-requiring IV antibiotics, now with significant leukocytosis and bandemia, acute kidney injury as outlined above with need for slow hydration secondary to acute combined congestive heart failure. Medically necessary treatment for all of these things will span 2 midnights. Inpatient status. Likely needs 2 more days of IV antibiotics his white blood count is slowly improving Urinary Catheter Management Urinary Catheter Management Straight: Cath placed during this visit: yes Urethral indwelling: No Insertion date: 03/11/24 Insertion time: 14:30 ? Urinary Catheter Management Urinary Catheter Management Straight: Cath placed during this visit: yes Urethral indwelling: No Insertion date: 03/11/24 Insertion time: 14:30 ? DS: Summary Hospital Course Hospital Course: Patient was seen and evaluated in the office with increasing erythema bilateral lower extremities, treated as an outpatient for cellulitis. Saw wound and they felt the cellulitis had progressed and the family felt her edema was coming back, so referred to ER, on my evaluation she did have some edema but not consistent with fluid overload. She still is more dry with elevated specific gravity and elevated BUN and creatinine. She was given gentle hydration, held Bumex for 2 days, restarted Bumex yesterday, edema is maintaining with wraps, white blood cell count is still elevated but erythema legs is improving. At this point her best plan would be to get into rehab soon as possible to get stronger, she will need continued antibiotics. Prescriptions are written. I will follow patient at rehab. She will see me after discharge from rehab as well. Time Spent with Patient Time attestation: Total time spent providing and/or coordinating discharge services: Exam Constitutional Vital Signs, click to edit/add: Last Vital Signs Temp 97.7 F 03/14/24 04:00 Pulse 93 H 03/14/24 04:00 Resp 18 03/14/24 04:00 BP 143/68 H 03/14/24 04:00 Pulse Ox 93 L 03/14/24 04:00 O2 Del Method Room Air 03/14/24 04:00 Documenting provider has reviewed patient's vital signs: yes Common normals: no apparent distress Chest Common normals: inspection of chest normal Respiratory Common normals: normal respiratory effort and no retractions; not clear to ascultation bilaterally Auscultation: rhonchi Cardio Common normals: no JVD, regular rate, regular rhythm and no murmurs Extremity Common normals: abnormal to inspection (Dressings in place, pictures from yesterday showed edema controlled) DS: Data Data Completed and Pending Labs on day of discharge: Labs from last 24 hours 03/14/24 06:05 WBC 18.8 H RBC 4.30 Hgb 11.3 L Hct 35.1 L MCV 81.6 MCH 26.3 L MCHC 32.2 RDW 19.2 H Plt Count 274 MPV 11.9 Seg Neuts % (Manual) 74.0 Band Neutrophils % 2.0 Lymphocytes % (Manual) 19.0 L Monocytes % (Manual) 5.0 Eosinophils % (Manual) 0.0 L Basophils % (Manual) 0.0 L Neutrophils # (Manual) 13.91 H Band Neutrophils # 0.4 H Lymphocytes # (Manual) 3.57 Monocytes # (Manual) 0.94 H Eosinophils # (Manual) 0.00 Basophils # (Manual) 0.00 Poikilocytosis 1+ Tear Drop Cells 1+ Ovalocytes 1+ Sodium 135 L Potassium 3.9 Chloride 100 Carbon Dioxide 27.2 Anion Gap 11.7 BUN 22.0 H Creatinine 1.24 H Est GFR ( Amer) 51 L Est GFR (Non-Af Amer) 42 L BUN/Creatinine Ratio 17.7 Glucose 117 H Calcium 7.8 L Total Bilirubin 0.4 AST 21 ALT 26 Alkaline Phosphatase 74 Troponin I High Sens 33.2 NT-Pro-B Natriuret Pep 801.0 Total Protein 4.3 L Albumin 1.9 L Globulin 2.4 Albumin/Globulin Ratio 0.8 Discharge Plan Discharge Disposition: Xfer SNF Condition: Fair Discharge Medications: New oxycodone 5 mg Tablet 10 mg PO Q6H MDD 8 tabs PRN (Reason: Pain Scale 7-10) Qty: 240 0RF doxycycline monohydrate 100 mg capsule 100 mg PO BID 14 Days Qty: 28 0RF cefdinir 300 mg capsule 600 mg PO DAILY Qty: 28 0RF Continued calcitonin (salmon) 200 unit/actuation spray,non-aerosol 1 spray intranasal DAILY pantoprazole [Protonix] 40 mg tablet,delayed release (DR/EC) 40 mg PO BID Qty: 60 11RF fluticasone furoate-vilanterol [Breo Ellipta] 200-25 mcg/dose blister with device 1 inh inhalation DAILY colchicine 0.6 mg capsule 0.6 mg PO DAILY albuterol sulfate 2.5 mg /3 mL (0.083 %) solution for nebulization 2.5 mg inhalation Q6H PRN (Reason: shortness of breath or wheezing) albuterol sulfate [Ventolin HFA] 90 mcg/actuation HFA aerosol inhaler 2 inh INHALATION Q4H PRN (Reason: shortness of breath or wheezing) bumetanide 1 mg tablet 1 mg PO DAILY Discontinued oxycodone 5 mg tablet 5 mg PO DAILY PRN (Reason: pain (scale score 4-6)) tramadol 50 mg tablet 50 mg PO Q8H PRN (Reason: pain) Print Language: Tamazight Registered Nurse Practitioner/Citizen Participation Specialist Instructions: James skilled Forms: Portal Instructions
[2024-03-14] MEDS: ONDANSETRON PF 4 MG/2 ML VIAL IV (09:23)
[2024-03-14] MEDS: OMEPRAZOLE 40 MG CAPSULE.DR PO (09:23)
[2024-03-14] MEDS: BUMETANIDE 1 MG TABLET 0.5 MG PO (09:23)
[2024-03-14 09:24] VITALS: BP 144/85; PULSE 93; TEMP 36.4; O2SAT 96
[2024-03-14] MEDS: TRAMADOL HCL 50 MG TABLET PO (09:24)
[2024-03-14] MEDS: ACETAMINOPHEN 500 MG TABLET 1000 MG PO (09:24)
[2024-03-14] MEDS: COLCHICINE 0.6 MG TABLET PO (09:24)
[2024-03-14] MEDS: CALCITONIN,SALMON,SYNTHETIC 30 SPRAY/3.7 ML BOTTLE NS (09:24)
[2024-03-14] MEDS: LINEZOLID IN DEXTROSE 5% 600 MG/300 ML PIGGYBACK 300 MG IV (09:26)
--- NOTE | 2024-03-14 10:02 | PT.DAILY ---
Physical Therapy Daily Note PT Daily Note/Assess Start: 03/13/24 10:21 Freq: Status: Active Protocol: Document 03/14/24 09:47 [id number] (Rec: 03/14/24 10:02 [id number]) Physical Therapy Daily Note/Assessment Time In/Time Out Time In 08:47 Time Out 09:06 Pain In Pain Level 8 Pain Out Pain Level 8 Subjective Subjective Patient received in bed, reports pain to ALLEN LE at 8/10 . Patient agreeable to participate with PT and requests to use toilet. Therapeutic Activity Time Therapeutic Activity 19 Minutes (minutes) Therapeutic Activity 1 Units Therapeutic Activity Treatment Bed Mobility Ability Contact Guard Assist Therapeutic Activity Bed mobility: supine to R sit w/ use of R bed rail is Comments CGA +1. Patient able to sit EOB without UE support, kyphotic posture. Donned gait belt for safety. Transfer: sit to stand to 2WW CGA to MIN A +1. Patient ambulated ~12 feet with 2WW to bathroom with decreased step length and height. Patient required MAX A +1 to draw down pants and MIN A +1 to lower to commode and with use of L hand on hand rail and R hand on toilet seat. Patient states she has stool in her brief. Patient requires MOD to MAX A+1 to for pawan-care. Patient C/O of fatigue, nausea and requests to return to bed immediately. Patient ambulated ~12 feet with 2WW to bed. Stand to sit EOB MIN A+1 with poor control on descent to bed. Patient sat EOC for ~2 minutes with basin, but unproductive. Bed mobility: sit to supine is CGA+1 for upper body and MIN A+1 for ALLEN LE management. Call olguin placed beside patient. Total Physical Therapy Time Total Therapy 19 Minutes Total Physical 1 Therapy Units Summary Daily Note Summary Patient demonstrates ability to ambulate to bathroom with 2WW vs BSC this date. Patient with functional weakness the ADL's and mobility. Would benefit from SNF to address functional issues.
== END 2024-03-14 11:40 | DRG 871 ==
LOC: ER 16:26 → MS 17:02
PROVIDERS: Admitting Provider Family Medicine; Emergency Provider Emergency Medicine; PCP Family Medicine; Visit Provider Family Medicine
DX: A41.9 Sepsis, unspecified organism (principal); I50.41 Acute combined systolic (congestive) and diastolic (congestive) heart failure; L03.116 Cellulitis of left lower limb; L03.115 Cellulitis of right lower limb; N17.9 Acute kidney failure, unspecified; E87.1 Hypo-osmolality and hyponatremia; E03.9 Hypothyroidism, unspecified; J47.9 Bronchiectasis, uncomplicated; K21.9 Gastro-esophageal reflux disease without esophagitis; R06.03 Acute respiratory distress; Z96.641 Presence of right artificial hip joint; Z90.49 Acquired absence of other specified parts of digestive tract; Z79.51 Long term (current) use of inhaled steroids; Z79.899 Other long term (current) drug therapy; Z88.5 Allergy status to narcotic agent; Z88.6 Allergy status to analgesic agent
CPT/HCPCS: 36410; 36415; 71045; 80053; 81003; 83605; 83735; 83880; 84436; 84443; 84481; 84484; 85007; 85027; 85610; 87040; 87045; 87046; 87070; 87427; 87811; 93005; 94640; 94667; 94668; 94761; 97110; 97161; 97165; 97530; 99285; C1887; J2020; J2405; J2543

== ENCOUNTER 2024-07-28 10:10 | Outpatient (OUT) | payer MEDICARE, OTHER, SELFPAY ==
[2024-07-28 11:01] LABS: Basophils Absolute Auto 0.1 10^3/uL (0.0-0.1); Basophils Percent Auto 0.8 % (0.2-2.0); Eosinophils Absolute Auto 0.2 10^3/uL (0.0-0.7); Eosinophils Percent Auto 2.6 % (0.9-7.0); Hematocrit 39.5 % (36.0-48.0); Hemoglobin 11.9 g/dL (12.0-16.0); Immature Granulocytes Abs Auto 0.04 10^3/uL (0.00-0.03); Immature Granulocytes Pct Auto 0.5 % (0.0-0.5); Lymphocytes Absolute Auto 3.2 10^3/uL (1.2-3.8); Lymphocytes Percent Auto 42.4 % (20.5-60.0); Mean Corpuscular HGB Conc 30.1 g/dL (29.9-35.2); Mean Corpuscular Volume 89.6 fL (81.0-99.0); Mean Platelet Volume 11.2 fL (9.5-13.5); Monocytes Absolute Auto 0.6 10^3/uL (0.3-0.8); Monocytes Percent Auto 8.3 % (1.7-12.0); Neutrophils Absolute Auto 3.5 10^3/uL (1.4-6.5); Neutrophils Percent Auto 45.4 % (43.0-75.0); Platelet Count 300 10^3/uL (150-450); Red Blood Count 4.41 10^6/uL (4.20-5.40); Red Cell Distribution Width 13.6 % (11.0-15.0); White Blood Count 7.6 10^3/uL (4.0-11.0)
[2024-07-28 12:05] LABS: Alanine Aminotransferase 12 U/L (14-59); Albumin Globulin Ratio 0.9; Albumin Level 3.1 g/dL (3.4-5.0); Alkaline Phosphatase 59 U/L (46-116); Anion Gap 8.9; Aspartate Amino Transferase 10 U/L (15-37); BUN Creatinine Ratio 14.7; Bilirubin Total 0.5 mg/dL (0.2-1.0); Calcium 8.8 mg/dL (8.5-10.1); Chloride 104 mmol/L (98-107); Chol HDL Ratio 3.3; Cholesterol 193 mg/dL (<=200); Estimated GFR (African America >60 (>=60 mL/min/1.73m^2); Estimated GFR (Non-African Ame >60 (>=60 mL/min/1.73m^2); Free T3 2.38 pg/mL (2.18-3.98); Globulin 3.4 g/dL; Glucose 94 mg/dL (74-106); HDL Cholesterol 59 mg/dL (40-60); LDL Cholesterol Calculated 118.6 mg/dL; Potassium 3.9 mmol/L (3.5-5.1); Sodium 143 mmol/L (136-145); Thyroid Stimulating Hormone 2.721 uIU/mL (0.358-3.740); Total Protein 6.5 g/dL (6.4-8.2); Triglycerides 77 mg/dL (<=150); Uric Acid 3.9 mg/dL (2.6-6.0); VLDL CHOLESTEROL 15.4 mg/dL
[2024-07-28 12:50] LABS: Estimated Average Glucose 128 mg/dL; Glycohemoglobin A1C 6.1 % (4.5-6.2)
== END 2024-07-28 10:11 | disposition home or self-care (01) ==
LOC: LAB 10:13
PROVIDERS: PCP Family Medicine; Visit Provider Family Medicine
DX: E78.5 Hyperlipidemia, unspecified (principal); S32.020S Wedge compression fracture of second lumbar vertebra, sequela; J45.909 Unspecified asthma, uncomplicated; B44.81 Allergic bronchopulmonary aspergillosis; N18.30 Chronic kidney disease, stage 3 unspecified; R73.09 Other abnormal glucose; I50.30 Unspecified diastolic (congestive) heart failure; I11.0 Hypertensive heart disease with heart failure
CPT/HCPCS: 36415; 80053; 80061; 83036; 83880; 84436; 84443; 84481; 84550; 85025

== ENCOUNTER 2024-08-03 10:47 | Outpatient (OUT) | payer MEDICARE, OTHER, SELFPAY ==
--- NOTE | 2024-08-03 10:49 | MM_ITS ---
Patient Name: DARRYL ZAYAS MR#: [id number] : 1950 Exam Date: 08/03/2024 Ordering Doctor: DR VELMA WATKINS . RADIOLOGY REPORT PROCEDURE: MM TOMOSYNTHESIS SCREENING BI COMPARISON: MM TOMOSYNTHESIS SCREENING BI, 05/15/2023. MG MAMM SCREEN 3D ALLEN CAD, 05/14/2022. MG MAMM ALLEN SCRN W CAD DIG, 04/09/2013. INDICATIONS: Screening Calculator Name NCI Breast Cancer Risk Assessment Tool 5 Year Breast Cancer Risk 3.50% Lifetime Breast Cancer Risk 7.50% Personal Breast Cancer No Personal Ovarian Cancer No Treatments None Family Cancers Mother with breast cancer at age 60; Aunt-maternal with liver cancer at age 67. LOCATION: [facility] BREAST COMPOSITION: There are scattered areas of fibroglandular density. FINDINGS: DIAGNOSTIC CATEGORY 1--NEGATIVE. RIGHT BREAST: No significant suspicious finding. LEFT BREAST: No significant suspicious finding. RECOMMENDATIONS: ROUTINE MAMMOGRAM AND CLINICAL EVALUATION IN 12 MONTHS. PLEASE NOTE: A NORMAL MAMMOGRAM DOES NOT EXCLUDE THE POSSIBILITY OF BREAST CANCER. A CLINICALLY SUSPICIOUS PALPABLE LUMP SHOULD BE BIOPSIED. Dictated by: Slava Fry DO on 08/03/2024 at 15:50 Approved by: Slava Fry DO on 08/03/2024 at 15:52
--- OUTSIDE RECORDS SUMMARY | 2024-08-03 11:08 | XMS_ITS | CCD ---
Author Organization [facility] Care Team Providers Care Wire Bound Box Machine Helper Name Role Phone NAYY ., DR CARREON [...] Physician MD Galileo Cleary Attending Provider Galileo CLEARY Attending Unavailable NILL, Galileo Jarrett Attending Unavailable NayyVelma Referring Unavailable NILLGalileo Attending Unavailable Nill, Galileo Jarrett Attending Unavailable Nill, Galileo Jarrett Admitting Unavailable Allergies Allergy Classification Reported Allergen(s) Allergy Type Date of Onset Reaction(s) Facility (3 sources) Aspirin; Translations: [aspirin] Drug Allergy 4 Difficulty Breathing [facility] Repository (3 sources) Codeine; Translations: [codeine] Drug Allergy 8 Difficulty Breathing [facility] Repository (3 sources) Morphine; Translations: [morphine] Drug Allergy 9 Difficulty Breathing [facility] Repository (2 sources) Propoxyphene; Translations: [Darvon] Drug Allergy 3 [facility]ository (1 source) Sulfamethoxazole / Trimethoprim Drug Allergy 3 [facility]ository (3 sources) Acetaminophen / HYDROcodone; Translations: [acetaminophen-hydro codone] Drug Allergy Dyspnea (finding) [facility] (2 sources) Aspirin; Translations: [aspirin] Drug Allergy Dyspnea (finding) [facility] (2 sources) Codeine; Translations: [codeine] Drug Allergy Dyspnea (finding) [facility] (2 sources) Morphine; Translations: [morphine] Drug Allergy Dyspnea (finding) [facility] (3 sources) Propoxyphene; Translations: [propoxyphene] Drug Allergy 9 Dyspnea (finding) [facility] (2 sources) Sulfamethoxazole; Translations: [sulfamethoxazole] Drug Allergy 9 Difficulty Breathing [facility] (2 sources) Trimethoprim; Translations: [trimethoprim] Drug Allergy 9 Difficulty Breathing [facility] (1 source) Aspirin Drug Allergy 9 [facility] (1 source) Codeine Drug Allergy 9 [facility] (1 source) Morphine Drug Allergy 9 [facility] (1 source) Propoxyphene Drug Allergy 9 [facility] Repository Medications Current Medications Medication [...] sources) Calcitonin Start: 05-26-2018 End: 06-02-2018 Calcitonin (Cherokee) Active 1 SPRAYS NASAL Daily 2.7 30 [...] for choosing us for your care. [place] [facility] General Surgery Office/Clini c [...] Immunizations Vaccine Date Status Comments SARS-CoV-2 (COVID-19) mRNAMUL.ORD![id number] 12/07/2021 Recorded SARSCoV2 mRNA(yafvzjmuw-uklw-foqpi s) vac 07/14/2021 Recorded SARS-CoV-2 (COVID-19) mRNA BNT-162b2 vax 12/27/2020 Recorded SARS-CoV-2 (COVID-19) mRNA BNT-162b2 vax 05/18/2020 Recorded 2023-07-19: TPV70 SARS-CoV-2 (COVID-19) mRNA BNT-162b2 vax 04/27/2020 Recorded 2023-07-19: TPV70 Normal [facility] Comment on above: Result Comment: Elec tronically Signed By: MELL MONGE, Galileo Agrawalbr\Date and Time Signed: 09/24/23 14:47 EDT Cruz 09-18-2023 L Specimen: [id number] Received: 09/19/23 Status: KISHAN Garnett Num: [id number] Spec Type: Surgical Subm Dr: Galileo Cleary MD FACS Tissues: A Soft Tissue/Surgical Margin-Other than Tumor,Mass,Lip or Angella (RT EAR) Procedures: HE/4, Gross/Micro L4 Age/ Patient Sex Location Account Attending Physician Ilana Moore 73/F [place] [id number] Galileo Cleary MD FACS SPEC NUM: [id number] RECD: 09/19/23 STATUS: INGRIDNicole GARNETT NUM: [id number] MARCO: 09/18/23-[address]: Galileo Cleary MD FACS ENTERED: 09/19/23-[address] [facility] [address]: Con Romero SPEC TYPE: Surgical [...] bisected and entirely submitted in A1. Specimen: [id number] Received: 09/19/23 Status: KISHAN Tamir Num: [id number] Spec Type: Surgical Subm Dr: Galileo Cleary MD FACS Tissues: A Soft Tissue/Surgical Margin-Other than Tumor,Mass,Lip or Angella (RT EAR) Procedures: HE/Melissa, Gross/Micro L4 Patient: OscarIlana L [id number] (Continued) Specimen: [id number] Received: 09/19/23 (Continued) Signed (signature on file) Cookie Evangelista MD 09/23/23 1129 Specimen: [id number] Received: 09/19/23 Status: KISHAN Coxalisha Num: [id number] Spec Type: Surgical Subm Dr: Galileo Cleary MD FACS Tissues: A Soft Tissue/Surgical Margin-Other than Tumor,Mass,Lip or Angella (RT EAR) Procedures: CLAUDE/Melissa, Gross/Micro L4 Patient: Ilana Moore [id number] (Continued) Specimen: [id number] Received: 09/19/23 (Continued) CPT Codes 43408 Specimen: [id number] Received: 09/19/23 Status: KISHAN Garnett Num: [id number] Spec Type: Surgical Subm Dr: Galileo Cleary MD FACS Tissues: A Soft Tissue/Surgical Margin-Other than Tumor,Mass,Lip or Angella (RT EAR) Procedures: /Melissa, Gross/Micro L4 Patient: Ilana Moore [id number] (Continued) Signed (signature on file) Cookie Evangelista MD 09/23/23 1129 Normal [facility] Consent for Procedure/Surger yon 08-02-2023 Consent for Procedure/Surgery [id number]#1.00TIFF Normal [facility] Facesheeton 08-01-2023 Facesheet [id number]#1.00TIFF [place] [facility] Ambulatory Visit Summaryon 0 07-31-2023 Ambulatory Visit [...] for choosing us for your care. Normal [facility] MG MAMM SCREEN 3D ALLEN CADon 05-14-2022 MG MAMM SCREEN 3D ALLEN CAD Patient: ILANA MOORE Exam Date: 05/14/2022 : 1950 Gender:F Ordering : DR VELMA MULLER . Admission #: [id number] Family : Order #: [id number] CLICK HERE TO VIEW EXAM RADIOLOGY REPORT [...] liver cancer at age 66. LOCATION: [facility] BREAST COMPOSITION: Scattered areas fibroglandular density. [...] M.D. on 05/16/2022 at 13:19 Normal [facility] INSULINon 02-08-2022 Insulin 6.6 uIU/mL Normal 2.6-24.9 [facility] Comment on above: Performed By: #### C BC #### [facility] [address] [place] [address] Dr. Lupe Evangelista CBC AUTO DIFFon 02-07-2022 BASO # 0.1 103/ul Normal 0.0-0.1 [facility] Comment on above: Performed By: #### C BC #### [facility] [address] [place] [address] Dr. Lupe Evangelista Basophils/100 WBC (Bld) 0.7 % Normal 0.2-2.0 [facility] Comment on above: Performed By: #### C BC #### [facility] [address] [place] [address] Dr. Lupe Evangelista EO # 0.4 103/ul Normal 0.0-0.7 [facility] Comment on above: Performed By: #### C BC #### [facility] [address] [place] [address] Dr. Lupe Evangelista Eosinophils/100 WBC (Bld) 5.4 % Normal 0.9-7.0 [facility] Comment on above: Performed By: #### C BC #### [facility] [address] [place] [address] Dr. Lupe Evangelista Erythrocyte distribution width (RBC) [Ratio] 15.9 % Critically high 11.0-15.0 [facility] Comment on above: Performed By: #### C BC #### [facility] [address] [place] [address] Dr. Lupe Evangelista Hematocrit (Bld) [Volume fraction] 39.8 % Normal 36.0-48.0 [facility] Comment on above: Performed By: #### C BC #### [facility] [address] [place] [address] Dr. Lupe Evangelista Hemoglobin (Bld) [Mass/Vol] 11.6 g/dL Critically low 12.0-16.0 [facility] Comment on above: Performed By: #### C BC #### [facility] [address] [address] [address] Lupe Evangelista IG # 0.02 10e3/ul Normal 0.00-0.03 [facility] Comment on above: Performed By: #### C BC #### [facility] [address] [address] [address] Lupe Evangelista IG % 0.2 % Normal 0.0-0.5 [facility] Comment on above: Performed By: #### C BC #### [facility] [address] [place] [address] Dr. Lupe Evangelista LYMPH # 2.9 103/ul Normal 1.2-3.8 [facility] Comment on above: Performed By: #### C BC #### [facility] [address] [place] [address] Dr. Lupe Evangelista Lymphocytes/100 WBC (Bld) 35.2 % Normal 20.5-60.0 [facility] Comment on above: Performed By: #### C BC #### [facility] [address] [place] [address] Dr. Lupe Evangelista MANUAL DIFF REQ NO Normal [facility] Comment on above: Performed By: #### C BC #### [facility] [address] [place] [address] Dr. Lupe Evangelista MCH (RBC) [Entitic mass] 23.4 pg Critically low 26.7-34.0 [facility] Comment on above: Performed By: #### C BC #### [facility] [address] [place] [address] Dr. Lupe Evangelista MCHC (RBC) [Mass/Vol] 29.1 g/dL Critically low 29.9-35.2 [facility] Comment on above: Performed By: #### C BC #### [facility] [address] [place] [address] Dr. Lupe Evangelista MCV (RBC) [Entitic vol] 80.4 fL Critically low 81.0-99.0 [facility] Comment on above: Performed By: #### C BC #### [facility] [address] [place] [address] Dr. Lupe Evangelista MONO # 0.8 103/ul Normal 0.3-0.8 [facility] Comment on above: Performed By: #### C BC #### [facility] [address] [place] [address] Dr. Lupe Evangelista Monocytes/100 WBC (Bld) 9.8 % Normal 1.7-12.0 [facility] Comment on above: Performed By: #### C BC #### [facility] [address] [place] [address] Dr. Lupe Evangelista NEUT # 4.0 103/ul Normal 1.4-6.5 [facility] Comment on above: Performed By: #### C BC #### [facility] [address] [place] [address] Dr. Lupe Evangelista Neutrophils/100 WBC (Bld) 48.7 % Normal 43.0-75.0 [facility] Comment on above: Performed By: #### C BC #### [facility] [address] [place] [address] Dr. Lupe Evangelista Platelet mean volume (Bld) [Entitic vol] 11.0 fL Normal 9.5-13.5 [facility] Comment on above: Performed By: #### C BC #### [facility] [address] [place] [address] Dr. Lupe Evangelista PLT 341 103/ul Normal 150-450 [facility] Comment on above: Performed By: #### C BC #### [facility] [address] [place] [address] Dr. Lupe Evangelista RBC 4.95 106/ul Normal 4.20-5.40 [facility] Comment on above: Performed By: #### C BC #### [facility] [address] [place] [address] Dr. Lupe Evangelista WBC 8.2 103/ul Normal 4.0-11.0 [facility] Comment on above: Performed By: #### C BC #### [facility] [address] [place] [address] Dr. Lupe Evangelista FREE THYROXINE INDEX T7on FTI 1.98 Normal 1.30-4.50 [facility] Comment on above: Performed By: #### C BC #### [facility] [address] [address] [address] Lupe Evangelista T3U 31.0 % Normal 30.0-39.0 [facility] Comment on above: Performed By: #### C BC #### [facility] [address] [address] [address] Lupe Evangelista T4 [Mass/Vol] 6.40 ug/dL Normal 4.80-13.90 [facility] Comment on above: Performed By: #### C BC #### [facility] [address] [place] [address] Dr. Lupe Evangelista GLYCOHEMOGLOBIN A1Con 2021 ADA RECOMMENDATION SEE BELOW Normal [facility] Comment on above: Result Comment: ADA RECOMMENDED LIMIT 4.0 - 6.0 ADA THERAPEUTIC TARGET < 7.0 ACTION SUGGESTED > 7.0 Performed By: #### C BC #### [facility] [address] [place] [address] Dr. Lupe Evangelista Glucose [Mass/Vol] 128 mg/dL Normal [facility] Comment on above: Performed By: #### C BC #### [facility] [address] [place] [address] Dr. Lupe Evangelista HbA1c (Bld) [Mass fraction] 6.1 % Normal 4.5-6.2 [facility] Comment on above: Performed By: #### C BC #### [facility] [address] [place] [address] Dr. Lupe Evangelista IRONon 02-07-2022 Iron [Mass/Vol] 44.0 ug/dL Critically low 50.0-170.0 [facility] Comment on above: Performed By: #### I DINO JACOBO #### [facility] [address] [place] [address] Dr. Lupe Evangelista LIPID PROFILEon 02-07-2022 CHOL-HDL RATIO NORM SEE BELOW Normal [facility] Comment on above: Result Comment: 3.3 - 4.4 LOW RISK 4.4 - 7.1 AVERAGE RISK 7.1 - 11.0 MODERATE RISK >11.0 HIGH RISK Performed By: #### C BC #### [facility] [address] [place] [address] Dr. Lupe Evangelista Cholesterol [Mass/Vol] 217 mg/dL Critically high <=200 [facility] Comment on above: Performed By: #### C BC #### [facility] [address] [place] [address] Dr. Lupe Evangelista Cholesterol in HDL [Mass/Vol] 60 mg/dL Normal 40-60 [facility] Comment on above: Performed By: #### C BC #### [facility] [address] [place] [address] Dr. Lupe Evangelista Cholesterol in LDL [Mass/Vol] 136.0 mg/dL Normal [facility] Comment on above: Performed By: #### C BC #### [facility] [address] [place] [address] Dr. Lupe Evangelista Cholesterol.total/C holesterol in HDL [Mass ratio] 3.6 {ratio} Normal [facility] Comment on above: Performed By: #### C BC #### [facility] [address] [place] [address] Dr. Lupe Evangelista HDL NORMAL > or = 60 mg/dl - LO W CARDIOVASCULAR RISK <40 mg/dl - HIGH CARDIOVASCULAR RISK Normal [facility] Comment on above: Performed By: #### C BC #### [facility] [address] [place] [address] Dr. Lupe Evangelista LDL CALC NORMAL SEE BELOW Normal [facility] Comment on above: Result Comment: <100 mg/dl OPTIMAL 100 - 129 mg/dl NEAR OR ABOVE OPTIMAL 130 - 159 mg/dl BORDERLINE HIGH 160 - 189 mg/dl HIGH >190 mg/dl VERY HIGH Performed By: #### C BC #### [facility] [address] [place] [address] Dr. Lupe Evangelista Triglyceride [Mass/Vol] 105 mg/dL Normal <=150 [facility] Comment on above: Performed By: #### C BC #### [facility] [address] [address] [address] Lupe Evangelista VLDL CALC 21.0 mg/dL Normal [facility] Comment on above: Performed By: #### C BC #### [facility] [address] [place] [address] Dr. Lupe Evangelista PROF 14(COMP METB)on 022 Albumin [Mass/Vol] 3.7 g/dL Normal 3.4-5.0 [facility] Comment on above: Performed By: #### C MP, LIPID, TSH, T7 #### [facility] [address] [place] [address] Dr. Lupe Evangelista Albumin/Globulin [Mass ratio] 1.0 {ratio} Normal [facility] Comment on above: Performed By: #### C MP, LIPID, TSH, T7 #### [facility] [address] [place] [address] Dr. Lupe Evangelista ALP [Catalytic activity/Vol] 86 U/L Normal 46-116 [facility] Comment on above: Performed By: #### C MP, LIPID, TSH, T7 #### [facility] [address] [place] [address] Dr. Lupe Evangelista ALT [Catalytic activity/Vol] 16 U/L Normal 14-59 [facility] Comment on above: Performed By: #### C MP, LIPID, TSH, T7 #### [facility] [address] [place] [address] Dr. Lupe Evangelista Anion gap [Moles/Vol] 7.0 mmol/L Normal [facility] Comment on above: Performed By: #### C MP, LIPID, TSH, T7 #### [facility] [address] [place] [address] Dr. Lupe Evangelista AST [Catalytic activity/Vol] 14 U/L Critically low 15-37 [facility] Comment on above: Performed By: #### C MP, LIPID, TSH, T7 #### [facility] [address] [place] [address] Dr. Lupe Evangelista Bilirubin [Mass/Vol] 0.4 mg/dL Normal 0.2-1.0 [facility] Comment on above: Performed By: #### C MP, LIPID, TSH, T7 #### [facility] [address] [address] [address] Lupe Evangelista Calcium [Mass/Vol] 8.9 mg/dL Normal 8.5-10.1 [facility] Comment on above: Performed By: #### C MP, LIPID, TSH, T7 #### [facility] [address] [place] [address] Dr. Lupe Evangelista Chloride [Moles/Vol] 102 mmol/L Normal 98-107 [facility] Comment on above: Performed By: #### C MP, LIPID, TSH, T7 #### [facility] [address] [place] [address] Dr. Lupe Evangelista CO2 [Moles/Vol] 34.3 mmol/L Critically high 21.0-32.0 [facility] Comment on above: Performed By: #### C MP, LIPID, TSH, T7 #### [facility] [address] [place] [address] Dr. Lupe Evangelista Creatinine [Mass/Vol] 0.73 mg/dL Normal 0.55-1.02 [facility] Comment on above: Performed By: #### C MP, LIPID, TSH, T7 #### [facility] [address] [place] [address] Dr. Lupe Evangelsita EGFR-AF SENEGALESE >60 Normal >=60 [facility] Comment on above: Performed By: #### C MP, LIPID, TSH, T7 #### [facility] [address] [place] [address] Dr. Lupe Evangelista EGFR-NON AF SENEGALESE >60 Normal >=60 [facility] Comment on above: Performed By: #### C MP, LIPID, TSH, T7 #### [facility] [address] [place] [address] Dr. Lupe Evangelista Globulin (S) [Mass/Vol] 3.8 g/dL Normal [facility] Comment on above: Performed By: #### C MP, LIPID, TSH, T7 #### [facility] [address] [place] [address] Dr. Lupe Evangelista Glucose [Mass/Vol] 111 mg/dL Critically high 74-106 [facility] Comment on above: Performed By: #### C MP, LIPID, TSH, T7 #### [facility] [address] [address] [address] Lupe Evangelista Potassium [Moles/Vol] 4.3 mmol/L Normal 3.5-5.1 [facility] Comment on above: Performed By: #### C MP, LIPID, TSH, T7 #### [facility] [address] [address] [address] Lupe Evangelista Protein [Mass/Vol] 7.5 g/dL Normal 6.4-8.2 [facility] Comment on above: Performed By: #### C MP, LIPID, TSH, T7 #### [facility] [address] [place] [address] Dr. Lupe Evangelista Sodium [Moles/Vol] 139 mmol/L Normal 136-145 [facility] Comment on above: Performed By: #### C MP, LIPID, TSH, T7 #### [facility] [address] [place] [address] Dr. Lupe Evangelista Urea nitrogen [Mass/Vol] 11.0 mg/dL Normal 7.0-18.0 [facility] Comment on above: Performed By: #### C MP, LIPID, TSH, T7 #### [facility] [address] [place] [address] Dr. Lupe Evangelista Urea nitrogen/Creatinine [Mass ratio] 15.1 mg/mg Normal [facility] Comment on above: Performed By: #### C MP, LIPID, TSH, T7 #### [facility] [address] [place] [address] Dr. Lupe Evangelista TSHon 02-07-2022 TSH 2.224 uIU/mL Normal 0.358-3.740 [facility] Comment on above: Performed By: #### C BC #### [facility] [address] [place] [address] Dr. Lupe Evangelista VITAMIN D 25 OHon 02-07-2022 VIT D 25-OH 17.8 ng/mL Normal [facility] Comment on above: Performed By: #### I DONNELL VITAD #### [facility] [address] [address] [address] Lupe Evangelista VIT D RANGES SEE BELOW Normal [facility] Comment on above: Result Comment: <20 ng/mL Vit D deficient 20 - <30 ng/mL Vit D insufficient 30 - 100 ng/mL Vit D sufficient >100 ng/mL Potential Toxicity Performed By: #### I DONNELL VITAD #### [facility] [address] [address] [address] Lupe Evangelista XR CHEST 2 Von [...] ARIANNE BRAGA Date: 2022-02-07 17:56 Normal [facility] CBC AUTO DIFFon 12-01-2021 BASO # 0.1 103/ul Normal 0.0-0.1 [facility] Comment on above: Performed By: #### C BC #### [facility] [address] [place] [address] Dr. Lupe Evangelista Basophils/100 WBC (Bld) 0.8 % Normal 0.2-2.0 [facility] Comment on above: Performed By: #### C BC #### [facility] [address] [place] [address] Dr. Lupe Evangelista EO # 0.4 103/ul Normal 0.0-0.7 [facility] Comment on above: Performed By: #### C BC #### [facility] [address] [place] [address] Dr. Lupe Evangelista Eosinophils/100 WBC (Bld) 5.4 % Normal 0.9-7.0 [facility] Comment on above: Performed By: #### C BC #### [facility] [address] [place] [address] Dr. Lupe Evangelista Erythrocyte distribution width (RBC) [Ratio] 16.3 % Critically high 11.0-15.0 [facility] Comment on above: Performed By: #### C BC #### [facility] [address] [place] [address] Dr. Lupe Evangelista Hematocrit (Bld) [Volume fraction] 36.0 % Normal 36.0-48.0 [facility] Comment on above: Performed By: #### C BC #### [facility] [address] [place] [address] Dr. Lupe Evangelista Hemoglobin (Bld) [Mass/Vol] 10.4 g/dL Critically low 12.0-16.0 [facility] Comment on above: Performed By: #### C BC #### [facility] [address] [place] [address] Dr. Lupe Evangelista IG # 0.04 10e3/ul Critically high 0.00-0.03 [facility] Comment on above: Performed By: #### C BC #### [facility] [address] [place] [address] Dr. Lupe Evangelista IG % 0.6 % Critically high 0.0-0.5 [facility] Comment on above: Performed By: #### C BC #### [facility] [address] [place] [address] Dr. Lupe Evangelista LYMPH # 1.9 103/ul Normal 1.2-3.8 [facility] Comment on above: Performed By: #### C BC #### [facility] [address] [place] [address] Dr. Lupe Evangelista Lymphocytes/100 WBC (Bld) 29.1 % Normal 20.5-60.0 [facility] Comment on above: Performed By: #### C BC #### [facility] [address] [place] [address] Dr. Lupe Evangelista MANUAL DIFF REQ NO Normal [facility] Comment on above: Performed By: #### C BC #### [facility] [address] [place] [address] Dr. Lupe Evangelista MCH (RBC) [Entitic mass] 24.9 pg Critically low 26.7-34.0 [facility] Comment on above: Performed By: #### C BC #### [facility] [address] [place] [address] Dr. Lupe Evangelista MCHC (RBC) [Mass/Vol] 28.9 g/dL Critically low 29.9-35.2 [facility] Comment on above: Performed By: #### C BC #### [facility] [address] [place] [address] Dr. Lupe Evangelista MCV (RBC) [Entitic vol] 86.1 fL Normal 81.0-99.0 [facility] Comment on above: Performed By: #### C BC #### [facility] [address] [place] [address] Dr. Lupe Evangelista MONO # 0.7 103/ul Normal 0.3-0.8 [facility] Comment on above: Performed By: #### C BC #### [facility] [address] [place] [address] Dr. Lupe Evangelista Monocytes/100 WBC (Bld) 10.7 % Normal 1.7-12.0 [facility] Comment on above: Performed By: #### C BC #### [facility] [address] [place] [address] Dr. Lupe Evangelista NEUT # 3.4 103/ul Normal 1.4-6.5 [facility] Comment on above: Performed By: #### C BC #### [facility] [address] [place] [address] Dr. Lupe Evangelista Neutrophils/100 WBC (Bld) 53.4 % Normal 43.0-75.0 [facility] Comment on above: Performed By: #### C BC #### [facility] [address] [place] [address] Dr. Lupe Evangelista Platelet mean volume (Bld) [Entitic vol] 10.6 fL Normal 9.5-13.5 [facility] Comment on above: Performed By: #### C BC #### [facility] [address] [address] Dr. Lupe Evangelista PLT 320 103/ul Normal 150-450 [facility] Comment on above: Performed By: #### C BC #### [facility] [address] [place] [address] Dr. Lupe Evangelista RBC 4.18 106/ul Critically low 4.20-5.40 [facility] Comment on above: Performed By: #### C BC #### [facility] [address] [place] [address] Dr. Lupe Evangelista WBC 6.4 103/ul Normal 4.0-11.0 [facility] Comment on above: Performed By: #### C BC #### [facility] [address] [place] [address] Dr. Lupe Evangelista CRPon 12-01-2021 CRP 1.6 mg/dL Critically high <=1.0 [facility] Comment on above: Performed By: #### C RP #### [facility] [address] [place] [address] Dr. Lupe Evangelista CBC AUTO DIFFon 11-29-2021 BASO # 0.1 103/ul Normal 0.0-0.1 [facility] Comment on above: Performed By: #### C BC #### [facility] [address] [place] [address] Dr. Lupe Evangelista Basophils/100 WBC (Bld) 0.6 % Normal 0.2-2.0 [facility] Comment on above: Performed By: #### C BC #### [facility] [address] [place] [address] Dr. Lupe Evangelista EO # 0.4 103/ul Normal 0.0-0.7 [facility] Comment on above: Performed By: #### C BC #### [facility] [address] [place] [address] Dr. Lupe Evangelista Eosinophils/100 WBC (Bld) 5.4 % Normal 0.9-7.0 [facility] Comment on above: Performed By: #### C BC #### [facility] [address] [place] [address] Dr. Lupe Evangelista Erythrocyte distribution width (RBC) [Ratio] 16.5 % Critically high 11.0-15.0 [facility] Comment on above: Performed By: #### C BC #### [facility] [address] [place] [address] Dr. Lupe Evangelista Hematocrit (Bld) [Volume fraction] 36.1 % Normal 36.0-48.0 [facility] Comment on above: Performed By: #### C BC #### [facility] [address] [place] [address] Dr. Lupe Evangelista Hemoglobin (Bld) [Mass/Vol] 10.6 g/dL Critically low 12.0-16.0 [facility] Comment on above: Performed By: #### C BC #### [facility] [address] [place] [address] Dr. Lupe Evangelista IG # 0.03 10e3/ul Normal 0.00-0.03 [facility] Comment on above: Performed By: #### C BC #### [facility] [address] [place] [address] Dr. Lupe Evangelista IG % 0.4 % Normal 0.0-0.5 [facility] Comment on above: Performed By: #### C BC #### [facility] [address] [place] [address] Dr. Lupe Evangelista LYMPH # 2.3 103/ul Normal 1.2-3.8 [facility] Comment on above: Performed By: #### C BC #### [facility] [address] [place] [address] Dr. Lupe Evangelista Lymphocytes/100 WBC (Bld) 29.9 % Normal 20.5-60.0 [facility] Comment on above: Performed By: #### C BC #### [facility] [address] [place] [address] Dr. Lupe Evangelista MANUAL DIFF REQ NO Normal [facility] Comment on above: Performed By: #### C BC #### [facility] [address] [place] [address] Dr. Lupe Evangelista MCH (RBC) [Entitic mass] 25.4 pg Critically low 26.7-34.0 [facility] Comment on above: Performed By: #### C BC #### [facility] [address] [place] [address] Dr. Lupe Evangelista MCHC (RBC) [Mass/Vol] 29.4 g/dL Critically low 29.9-35.2 [facility] Comment on above: Performed By: #### C BC #### [facility] [address] [place] [address] Dr. Lupe Evangelista MCV (RBC) [Entitic vol] 86.4 fL Normal 81.0-99.0 [facility] Comment on above: Performed By: #### C BC #### [facility] [address] [place] [address] Dr. Lupe Evangelista MONO # 0.9 103/ul Critically high 0.3-0.8 [facility] Comment on above: Performed By: #### C BC #### [facility] [address] [place] [address] Dr. Lupe Evangelista Monocytes/100 WBC (Bld) 10.9 % Normal 1.7-12.0 [facility] Comment on above: Performed By: #### C BC #### [facility] [address] [place] [address] Dr. Lupe Evangelista NEUT # 4.1 103/ul Normal 1.4-6.5 [facility] Comment on above: Performed By: #### C BC #### [facility] [address] [place] [address] Dr. Lupe Evangelista Neutrophils/100 WBC (Bld) 52.8 % Normal 43.0-75.0 [facility] Comment on above: Performed By: #### C BC #### [facility] [address] [place] [address] Dr. Lupe Evangelista Platelet mean volume (Bld) [Entitic vol] 11.2 fL Normal 9.5-13.5 [facility] Comment on above: Performed By: #### C BC #### [facility] [address] [place] [address] Dr. Lupe Evangelista PLT 351 103/ul Normal 150-450 [facility] Comment on above: Performed By: #### C BC #### [facility] [address] [address] [address] Lupe Evangelista RBC 4.18 106/ul Critically low 4.20-5.40 [facility] Comment on above: Performed By: #### C BC #### [facility] [address] [place] [address] Dr. Lupe Evangelista WBC 7.8 103/ul Normal 4.0-11.0 [facility] Comment on above: Performed By: #### C BC #### [facility] [address] [place] [address] Dr. Lupe Evangelista CRPon 11-29-2021 CRP 1.7 mg/dL Critically high <=1.0 [facility] Comment on above: Performed By: #### C RP, CMP #### [facility] [address] [place] [address] Dr. Lupe Evangelista CULTURE BLOODon 11-29-2021 Microscopic examination of blood, culture Culture Observations: NO GROWTH AT 5 DAYS. Normal [facility] Comment on above: Performed By: #### C BC #### [facility] [address] [place] [address] Dr. Lupe Evangelista Microscopic examination of blood, culture Culture Observations: NO GROWTH AT 5 DAYS. Normal [facility] Comment on above: Performed By: #### C BC #### [facility] [address] [place] [address] Dr. Lupe Evangelista PROF 14(COMP METB)on 022 Albumin [Mass/Vol] 3.5 g/dL Normal 3.4-5.0 [facility] Comment on above: Performed By: #### C RP, CMP #### [facility] [address] [place] [address] Dr. Lupe Evangelista Albumin/Globulin [Mass ratio] 0.9 {ratio} Normal [facility] Comment on above: Performed By: #### C RP, CMP #### [facility] [address] [address] [address] Lupe Evangelista ALP [Catalytic activity/Vol] 105 U/L Normal 46-116 [facility] Comment on above: Performed By: #### C RP, CMP #### [facility] [address] [place] [address] Dr. Lupe Evangelista ALT [Catalytic activity/Vol] 15 U/L Normal 14-59 [facility] Comment on above: Performed By: #### C RP, CMP #### [facility] [address] [place] [address] Dr. Lupe Evangelista Anion gap [Moles/Vol] 7.3 mmol/L Normal [facility] Comment on above: Performed By: #### C RP, CMP #### [facility] [address] [place] [address] Dr. Lupe Evangelista AST [Catalytic activity/Vol] 21 U/L Normal 15-37 [facility] Comment on above: Performed By: #### C RP, CMP #### [facility] [address] [place] [address] Dr. Lupe Evangelista Bilirubin [Mass/Vol] 0.4 mg/dL Normal 0.2-1.0 [facility] Comment on above: Performed By: #### C RP, CMP #### [facility] [address] [place] [address] Dr. Lupe Evangelista Calcium [Mass/Vol] 8.5 mg/dL Normal 8.5-10.1 [facility] Comment on above: Performed By: #### C RP, CMP #### [facility] [address] [place] [address] Dr. Lupe vEangelista Chloride [Moles/Vol] 102 mmol/L Normal 98-107 [facility] Comment on above: Performed By: #### C RP, CMP #### [facility] [address] [address] [address] Lupe Evangelista CO2 [Moles/Vol] 31.9 mmol/L Normal 21.0-32.0 [facility] Comment on above: Performed By: #### C RP, CMP #### [facility] [address] [place] [address] Dr. Lupe Evangelista Creatinine [Mass/Vol] 0.76 mg/dL Normal 0.55-1.02 [facility] Comment on above: Performed By: #### C RP, CMP #### [facility] [address] [place] [address] Dr. Lupe Evangelista EGFR-AF SENEGALESE >60 Normal >=60 [facility] Comment on above: Performed By: #### C RP, CMP #### [facility] [address] [place] [address] Dr. Lupe Evangelista EGFR-NON AF SENEGALESE >60 Normal >=60 [facility] Comment on above: Performed By: #### C RP, CMP #### [facility] [address] [place] [address] Dr. Lupe Evangelista Globulin (S) [Mass/Vol] 3.9 g/dL Normal [facility] Comment on above: Performed By: #### C RP, CMP #### [facility] [address] [place] [address] Dr. Lpue Evangelista Glucose [Mass/Vol] 92 mg/dL Normal 74-106 [facility] Comment on above: Performed By: #### C RP, CMP #### [facility] [address] [place] [address] Dr. Lupe Evangelista Potassium [Moles/Vol] 4.2 mmol/L Normal 3.5-5.1 [facility] Comment on above: Performed By: #### C RP, CMP #### [facility] [address] [place] [address] Dr. Lupe Evangelista Protein [Mass/Vol] 7.4 g/dL Normal 6.4-8.2 [facility] Comment on above: Performed By: #### C RP, CMP #### [facility] [address] [place] [address] Dr. Lupe Evangelitsa Sodium [Moles/Vol] 137 mmol/L Normal 136-145 [facility] Comment on above: Performed By: #### C RP, CMP #### [facility] [address] [address] [address] Lupe Evangelista Urea nitrogen [Mass/Vol] 8.0 mg/dL Normal 7.0-18.0 [facility] Comment on above: Performed By: #### C RP, CMP #### [facility] [address] [address] [address] Lupe Evangelista Urea nitrogen/Creatinine [Mass ratio] 10.5 mg/mg Normal [facility] Comment on above: Performed By: #### C RP, CMP #### [facility] [address] [place] [address] Dr. Lupe Evangelista SED RATE [facility] 2021 SED RATE 27 mm/hr Normal <=30 [facility] Comment on above: Performed By: #### S EDR #### [facility] [address] [place] [address] Dr. Lupe Evangelista XR KNEE RT 4V [...] Soft tissue swelling anteriorly. Electronically authenticated by: HNUTER LAWRENCE Date: 2021-11-15 21:55 Normal [facility] Vital Signs Date Time Vital Sign Value Performing Clinician [place] 07-31-2023 14:30-0400 Blood Pressure Location Galileo Mcnamara [facility] [place] 07-31-2023 14:30-0400 Diastolic blood pressure 62 mm[Hg] Galileo Mcnamara [facility] 07-31-2023 14:30-0400 Heart rate 68 /min Galileo CAMACHOL [facility] 07-31-2023 14:30-0400 Respiratory rate 16 /min Galileo CAMACHOL [facility] 07-31-2023 14:30-0400 Systolic blood pressure 120 mm[Hg] [facility] En[facility] Date Encounter Type Care Provider Facility Start: 09-24-2023 End: 09-24-2023 ambulatory Galileo R MELL Facility: [facility] Start: 09-24-2023 End: 09-24-2023 Patient encounter procedure [facility] Start: 09-18-2023 End: 09-18-2023 ambulatory Galileo Cleary [facility] Work Phone: Start: 09-18-2023 End: 09-18-2023 Departed Referred MD Galileo Cleary Work Phone: [facility] Start: 09-18-2023 End: 09-18-2023 ambulatory Galileo CLEARY Facility:[id number] Start: 07-31-2023 End: 07-31-2023 ambulatory Galileo R NILRenu Facility: [facility] Start: 07-31-2023 End: 07-31-2023 Patient encounter [facility] Start: 07-19-2023 ambulatory Galileo CLEARY Facility:Fabricio Romero [...] Provider Fa cility 12-07-2021 SARS-CoV-2 (COVID-19 ) mRNAMUL.[id number] Galileo NILL [facility] 07-14-2021 SARS-CoV-2 mRNA (krweftrsanu-axth-wtknf se) vaccine Galileo NILL [facility] 12-27-2020 SARS-CoV-2 (COVID-19 ) mRNA BNT-162b2 vax Galileo NILL [facility] 05-18-2020 SARS-CoV-2 (COVID-19 ) mRNA BNT-162b2 vax Galileo NILL [facility] Comment on above: Result Comment: 2023: [id number] 04-27-2020 SARS-CoV-2 (COVID-19 ) mRNA BNT-162b2 vax Galileo CLEARY [facility] Comment on above: Result Comment: 2023: [id number] Payers Date Payer Category Payer Self-pay [id number] Medicare [id number] 1960 Unknown [id number] 1950 Unknown [id number] 1950 Unknown [id number] 1949 Unknown [id number] 1949 Unknown [id number] 1949 Unknown [id number] 1949 Unknown [id number] 1949 Unknown [id number] 1949 Unknown [id number] Unknown Regular Insurance [id number] Unknown [id number] Worker's Compensation [employer] [facility] [id number] Social History Date Type Detail Facility Start: 07-31-2023 Tobacco smoking status Never s moked tobacco (finding) [facility] Start: 1950 Sex Assigned At Female F [facility] Functional Status Date Assessment Result Facility 07-31[facility]23 [facility] [place] Clinical [facility] 07-31-2023 Note Date & Type [...] plan excisional biopsy under local anesthesia at [facility], for definitive diagnosis and treatment; informed [...] Immunizations Vaccine Date Status Comments SARS-CoV-2 (COVID-19) mRNAMUL.[id number] 12/07/2021 Recorded SARSCoV2 mRNA(oxwxqnqdl-cjpv-zfzzaz) vac 07/14/2021 Recorded SARS-CoV-2 (COVID-19) mRNA BNT-162b2 vax 12/27/2020 Recorded SARS-CoV-2 (COVID-19) mRNA BNT-162b2 vax 05/18/2020 Recorded 2023-07-19: [id number] SARS-CoV-2 (COVID-19) mRNA BNT-162b2 vax 04/27/2020 Recorded 2023-07-19: [id number] [facility] Comment on above: Result Comment: Elec tronically Signed By: MELL MONGE, Galileo Roberts\Date and Time Signed: 07/31/23 15:12 EDT Evaluation + Plan note Note Date & Type Note Facility Evaluation + Plan note No data available for this section [facility] Evaluation note Note Date & Type Note Facility [facility] Discharge instructions Note Date & Type Note Facility Hospital Discharge instructions No data available for this section [facility] Progress note Note Date & Type Note Facility Progress note No data available for this section [facility] Summary Purpose Family History No Family History Records Found No data available for this section No data available for this section No Family History Records FoundNo Family History Records Found Advance Directives No Advanced Directives Records Found Advance Directive Response Recorded Date/ Time Advance Directives No July 10, 018 6:52am Additional Source Comments INFORMATION SOURCE (unrecogn ized section and content) DATE CREATED AUTHOR 05/19/2022 [facility] DATE CREATED AUTHOR AUTHOR'S ORGANIZ ATION 09/26/2023 [facility] DATE CREATED AUTHOR AUTHOR'S ORGANIZ ATION 03/18/2024 [facility] Patient Care team informatio n (unrecognized section [...] BE BASED ON THE PRIMARY CLINICAL RECORDS. [employer] provides no warranty or guarantee of the accuracy or completeness of information in this document.
== END 2024-08-03 10:48 | disposition home or self-care (01) ==
LOC: MAMMO 10:47
PROVIDERS: PCP Family Medicine; Visit Provider Family Medicine
DX: Z12.31 Encounter for screening mammogram for malignant neoplasm of breast (principal); Z80.3 Family history of malignant neoplasm of breast; Z80.8 Family history of malignant neoplasm of other organs or systems
CPT/HCPCS: 77063; 77067

== ENCOUNTER 2025-01-03 12:38 | Inpatient (IN) | payer MEDICARE, OTHER, SELFPAY ==
[2025-01-03] VITALS (30 sets, daily range): BP systolic 105–138; BP diastolic 60–86; PULSE 77–155; TEMP 36.4–36.7; O2SAT 94–97; BMI 15.4; BMI 21.3
--- OUTSIDE RECORDS SUMMARY | 2025-01-03 12:55 | XMS_ITS | CCD ---
Author Organization [facility] Care Team Providers Care Lumber Tallier Name Role Phone NAYY ., DR CARREON [...] [aspirin] Drug Allergy 4 Difficulty Breathing [facility] Repository (3 sources) Codeine; Translations: [codeine] Drug Allergy 8 Difficulty Breathing [facility] Repository (3 sources) Morphine; Translations: [morphine] Drug Allergy 9 Difficulty Breathing [facility] Repository (2 sources) Propoxyphene; Translations: [Darvon] Drug Allergy 3 [facility] Repository (1 source) Sulfamethoxazole / Trimethoprim Drug Allergy 3 [facility] Repository (3 sources) Acetaminophen / HYDROcodone; Translations: [acetaminophen-hydro codone] Drug Allergy Dyspnea (finding) [facility] (2 sources) Aspirin; Translations: [aspirin] Drug Allergy Dyspnea (finding) [facility] (2 sources) Codeine; Translations: [codeine] Drug Allergy Dyspnea (finding) [facility] (2 sources) Morphine; Translations: [morphine] Drug Allergy Dyspnea (finding) [facility] (3 sources) Propoxyphene; Translations: [propoxyphene] Drug Allergy 9 Dyspnea (finding) [facility] (2 sources) Sulfamethoxazole; Translations: [sulfamethoxazole] Drug Allergy 9 Difficulty Breathing [facility] (2 sources) Trimethoprim; Translations: [trimethoprim] Drug Allergy 9 Difficulty Breathing [facility] (1 source) Aspirin Drug Allergy 9 [facility] Repository (1 source) Codeine Drug Allergy 9 [facility] Repository (1 source) Morphine Drug Allergy 9 [facility] Repository (1 source) Propoxyphene Drug Allergy 9 [facility] Repository Medications Current Medications Medication Drug [...] sources) Calcitonin Start: 05-26-2018 End: 06-02-2018 Calcitonin ([place]) Active 1 SPRAYS NASAL Daily 2.7 [...] oral tablet (1 source) Dihydropyridine Calcium [employer] [facility] Start: 06-02-2018 End: 07-02-2018 take 2.5 mg [...] for choosing us for your care. [facility] General Surgery Office/Clini c Noteon 09-24-2023 [...] Immunizations Vaccine Date Status Comments SARS-CoV-2 (COVID-19) mRNAMUL.[id number] 12/07/2021 Recorded SARSCoV2 mRNA(wxpehrktz-ummd-srdda s) vac 07/14/2021 Recorded SARS-CoV-2 (COVID-19) mRNA BNT-162b2 vax 12/27/2020 Recorded SARS-CoV-2 (COVID-19) mRNA BNT-162b2 vax 05/18/2020 Recorded 2023-07-19: TPV70 SARS-CoV-2 (COVID-19) mRNA BNT-162b2 vax 04/27/2020 Recorded 2023-07-19: TPV70 Normal [facility] Comment on above: Result Comment: Elec tronically Signed By: MELL MONGE, Galileo Agrawalbr\Date and Time Signed: 09/24/23 14:47 EDT Cruz 09-18-2023 L Specimen: [id number] Received: 09/19/23 Status: KISHAN Garnett Num: [id number] Spec Type: Surgical Subm Dr: Galileo Cleary MD FACS Tissues: A Soft Tissue/Surgical Margin-Other than Tumor,Mass,Lip or Angella (RT EAR) Procedures: HE/4, Gross/Micro L4 Age/ Patient Sex Location Account Attending Physician Ilana Moore 73/F [place] [id number] Galileo Cleary MD FACS SPEC NUM: [id number] RECD: 09/19/23 STATUS: INGRIDNicole GARNETT NUM: [id number] MARCO: 09/18/23-[address]: Galileo Cleary MD FACS ENTERED: 09/19/23-[address] [facility] [address]: Con Romero SPEC TYPE: Surgical [...] bisected and entirely submitted in A1. Specimen: [id number] Received: 09/19/23 Status: KISHAN Tamir Num: [id number] Spec Type: Surgical Subm Dr: Galileo Cleary MD FACS Tissues: A Soft Tissue/Surgical Margin-Other than Tumor,Mass,Lip or Angella (RT EAR) Procedures: HE/Melissa, Gross/Micro L4 Patient: OscarIlana L [id number] (Continued) Specimen: [id number] Received: 09/19/23 (Continued) Signed (signature on file) Cookie Evangelista MD 09/23/23 1129 Specimen: [id number] Received: 09/19/23 Status: KISHAN Coxalisha Num: [id number] Spec Type: Surgical Subm Dr: Galileo Cleary MD FACS Tissues: A Soft Tissue/Surgical Margin-Other than Tumor,Mass,Lip or Angella (RT EAR) Procedures: CLAUDE/Melissa, Gross/Micro L4 Patient: Ilana Moore [id number] (Continued) Specimen: [id number] Received: 09/19/23 (Continued) CPT Codes 64917 Specimen: [id number] Received: 09/19/23 Status: KISHAN Garnett Num: [id number] Spec Type: Surgical Subm Dr: Galileo Cleary MD FACS Tissues: A Soft Tissue/Surgical Margin-Other than Tumor,Mass,Lip or Angella (RT EAR) Procedures: /Melissa, Gross/Micro L4 Patient: Ilana Moore [id number] (Continued) Signed (signature on file) Cookie Evangelista MD 09/23/23 1129 Normal [facility] Consent for Procedure/Surger yon 08-02-2023 Consent for Procedure/Surgery [id number] Normal [facility] Facesheeton 08-01-2023 Facesheet [id number] [facility] Ambulatory Visit Summaryon 0 07-31-2023 Ambulatory Visit Summary ILANA MOORE :1950 Visit Date:07/31/2023 Ambulatory Visit Instructions Your Care Team Attending Physician - Gallieo CLEARY MD Primary Care Physician - Velma [...] for choosing us for your care. Normal [facility] MG MAMM SCREEN 3D ALLEN CADon 05-14-2022 MG MAMM SCREEN 3D ALLEN CAD Patient: ILANA MOORE Exam Date: 05/14/2022 : 1950 Gender:F Ordering : DR VELMA MULLER . Admission #: [id number] Family : Order #: [id number] CLICK HERE TO VIEW EXAM RADIOLOGY REPORT [...] liver cancer at age 66. LOCATION: [facility] BREAST COMPOSITION: Scattered areas fibroglandular density. [...] M.D. on 05/16/2022 at 13:19 Normal [facility] INSULINon 02-08-2022 Insulin 6.6 uIU/mL Normal 2.6-24.9 [facility] Comment on above: Performed By: #### C BC #### [facility] [address] [place] [address] Dr. Lupe Evangelista CBC AUTO DIFFon 02-07-2022 BASO # 0.1 103/ul Normal 0.0-0.1 [facility] Comment on above: Performed By: #### C BC #### [facility] [address] [place] [address] Dr. Lupe Evangelista Basophils/100 WBC (Bld) 0.7 % Normal 0.2-2.0 [facility] Comment on above: Performed By: #### C BC #### [facility] [address] [place] [address] Dr. Lupe Evangelista EO # 0.4 103/ul Normal 0.0-0.7 [facility] Comment on above: Performed By: #### C BC #### [facility] [address] [place] [address] Dr. Lupe Evangelista Eosinophils/100 WBC (Bld) 5.4 % Normal 0.9-7.0 [facility] Comment on above: Performed By: #### C BC #### [facility] [address] [place] [address] Dr. Lupe Evangelista Erythrocyte distribution width (RBC) [Ratio] 15.9 % Critically high 11.0-15.0 [facility] Comment on above: Performed By: #### C BC #### [facility] [address] [place] [address] Dr. Lupe Evangelista Hematocrit (Bld) [Volume fraction] 39.8 % Normal 36.0-48.0 [facility] Comment on above: Performed By: #### C BC #### [facility] [address] [place] [address] Dr. Lupe Evangelista Hemoglobin (Bld) [Mass/Vol] 11.6 g/dL Critically low 12.0-16.0 [facility] Comment on above: Performed By: #### C BC #### [facility] [address] [address] [address] Lupe Evangelista IG # 0.02 10e3/ul Normal 0.00-0.03 [facility] Comment on above: Performed By: #### C BC #### [facility] [address] [address] [address] Lupe Evangelista IG % 0.2 % Normal 0.0-0.5 [facility] Comment on above: Performed By: #### C BC #### [facility] [address] [place] [address] Dr. Lupe Evangelista LYMPH # 2.9 103/ul Normal 1.2-3.8 [facility] Comment on above: Performed By: #### C BC #### [facility] [address] [place] [address] Dr. Lupe Evangelista Lymphocytes/100 WBC (Bld) 35.2 % Normal 20.5-60.0 [facility] Comment on above: Performed By: #### C BC #### [facility] [address] [place] [address] Dr. Lupe Evangelista MANUAL DIFF REQ NO Normal [facility] Comment on above: Performed By: #### C BC #### [facility] [address] [place] [address] Dr. Lupe Evangelista MCH (RBC) [Entitic mass] 23.4 pg Critically low 26.7-34.0 [facility] Comment on above: Performed By: #### C BC #### [facility] [address] [place] [address] Dr. Lupe Evangelista MCHC (RBC) [Mass/Vol] 29.1 g/dL Critically low 29.9-35.2 [facility] Comment on above: Performed By: #### C BC #### [facility] [address] [place] [address] Dr. Lupe Evangelista MCV (RBC) [Entitic vol] 80.4 fL Critically low 81.0-99.0 [facility] Comment on above: Performed By: #### C BC #### [facility] [address] [place] [address] Dr. Lupe Evangelista MONO # 0.8 103/ul Normal 0.3-0.8 [facility] Comment on above: Performed By: #### C BC #### [facility] [address] [place] [address] Dr. Lupe Evangelista Monocytes/100 WBC (Bld) 9.8 % Normal 1.7-12.0 [facility] Comment on above: Performed By: #### C BC #### [facility] [address] [place] [address] Dr. Lupe Evangelista NEUT # 4.0 103/ul Normal 1.4-6.5 [facility] Comment on above: Performed By: #### C BC #### [facility] [address] [place] [address] Dr. Lupe Evangelista Neutrophils/100 WBC (Bld) 48.7 % Normal 43.0-75.0 [facility] Comment on above: Performed By: #### C BC #### [facility] [address] [place] [address] Dr. Lupe Evangelista Platelet mean volume (Bld) [Entitic vol] 11.0 fL Normal 9.5-13.5 [facility] Comment on above: Performed By: #### C BC #### [facility] [address] [place] [address] Dr. Lupe Evangelista PLT 341 103/ul Normal 150-450 [facility] Comment on above: Performed By: #### C BC #### [facility] [address] [place] [address] Dr. Lupe Evangelista RBC 4.95 106/ul Normal 4.20-5.40 [facility] Comment on above: Performed By: #### C BC #### [facility] [address] [place] [address] Dr. Lupe Evangelista WBC 8.2 103/ul Normal 4.0-11.0 [facility] Comment on above: Performed By: #### C BC #### [facility] [address] [place] [address] Dr. Lupe Evangelista FREE THYROXINE INDEX T7on FTI 1.98 Normal 1.30-4.50 [facility] Comment on above: Performed By: #### C BC #### [facility] [address] [address] [address] Lupe Evangelista T3U 31.0 % Normal 30.0-39.0 [facility] Comment on above: Performed By: #### C BC #### [facility] [address] [address] [address] Lupe Evangelista T4 [Mass/Vol] 6.40 ug/dL Normal 4.80-13.90 [facility] Comment on above: Performed By: #### C BC #### [facility] [address] [place] [address] Dr. Lupe Evangelista GLYCOHEMOGLOBIN A1Con 2021 ADA RECOMMENDATION SEE BELOW Normal [facility] Comment on above: Result Comment: ADA RECOMMENDED LIMIT 4.0 - 6.0 ADA THERAPEUTIC TARGET < 7.0 ACTION SUGGESTED > 7.0 Performed By: #### C BC #### [facility] [address] [place] [address] Dr. Lupe Evangelista Glucose [Mass/Vol] 128 mg/dL Normal [facility] Comment on above: Performed By: #### C BC #### [facility] [address] [place] [address] Dr. Lupe Evangelista HbA1c (Bld) [Mass fraction] 6.1 % Normal 4.5-6.2 [facility] Comment on above: Performed By: #### C BC #### [facility] [address] [place] [address] Dr. Lupe Evangelista IRONon 02-07-2022 Iron [Mass/Vol] 44.0 ug/dL Critically low 50.0-170.0 [facility] Comment on above: Performed By: #### I DINO JACOBO #### [facility] [address] [place] [address] Dr. Lupe Evangelista LIPID PROFILEon 02-07-2022 CHOL-HDL RATIO NORM SEE BELOW Normal [facility] Comment on above: Result Comment: 3.3 - 4.4 LOW RISK 4.4 - 7.1 AVERAGE RISK 7.1 - 11.0 MODERATE RISK >11.0 HIGH RISK Performed By: #### C BC #### [facility] [address] [place] [address] Dr. Lupe Evangelista Cholesterol [Mass/Vol] 217 mg/dL Critically high <=200 [facility] Comment on above: Performed By: #### C BC #### [facility] [address] [place] [address] Dr. Lupe Evangelista Cholesterol in HDL [Mass/Vol] 60 mg/dL Normal 40-60 [facility] Comment on above: Performed By: #### C BC #### [facility] [address] [place] [address] Dr. Lupe Evangelista Cholesterol in LDL [Mass/Vol] 136.0 mg/dL Normal [facility] Comment on above: Performed By: #### C BC #### [facility] [address] [place] [address] Dr. Lupe Evangelista Cholesterol.total/C holesterol in HDL [Mass ratio] 3.6 {ratio} Normal [facility] Comment on above: Performed By: #### C BC #### [facility] [address] [place] [address] Dr. Lupe Evangelista HDL NORMAL > or = 60 mg/dl - LO W CARDIOVASCULAR RISK <40 mg/dl - HIGH CARDIOVASCULAR RISK Normal [facility] Comment on above: Performed By: #### C BC #### [facility] [address] [place] [address] Dr. Lupe Evangelista LDL CALC NORMAL SEE BELOW Normal [facility] Comment on above: Result Comment: <100 mg/dl OPTIMAL 100 - 129 mg/dl NEAR OR ABOVE OPTIMAL 130 - 159 mg/dl BORDERLINE HIGH 160 - 189 mg/dl HIGH >190 mg/dl VERY HIGH Performed By: #### C BC #### [facility] [address] [place] [address] Dr. Lupe Evangelista Triglyceride [Mass/Vol] 105 mg/dL Normal <=150 [facility] Comment on above: Performed By: #### C BC #### [facility] [address] [address] [address] Lupe Evangelista VLDL CALC 21.0 mg/dL Normal [facility] Comment on above: Performed By: #### C BC #### [facility] [address] [place] [address] Dr. Lupe Evangelista PROF 14(COMP METB)on 022 Albumin [Mass/Vol] 3.7 g/dL Normal 3.4-5.0 [facility] Comment on above: Performed By: #### C MP, LIPID, TSH, T7 #### [facility] [address] [place] [address] Dr. Lupe Evangelista Albumin/Globulin [Mass ratio] 1.0 {ratio} Normal [facility] Comment on above: Performed By: #### C MP, LIPID, TSH, T7 #### [facility] [address] [place] [address] Dr. Lupe Evangelista ALP [Catalytic activity/Vol] 86 U/L Normal 46-116 [facility] Comment on above: Performed By: #### C MP, LIPID, TSH, T7 #### [facility] [address] [place] [address] Dr. Lupe Evangelista ALT [Catalytic activity/Vol] 16 U/L Normal 14-59 [facility] Comment on above: Performed By: #### C MP, LIPID, TSH, T7 #### [facility] [address] [place] [address] Dr. Lupe Evangelista Anion gap [Moles/Vol] 7.0 mmol/L Normal [facility] Comment on above: Performed By: #### C MP, LIPID, TSH, T7 #### [facility] [address] [place] [address] Dr. Lupe Evangelista AST [Catalytic activity/Vol] 14 U/L Critically low 15-37 [facility] Comment on above: Performed By: #### C MP, LIPID, TSH, T7 #### [facility] [address] [place] [address] Dr. Lupe Evangelista Bilirubin [Mass/Vol] 0.4 mg/dL Normal 0.2-1.0 [facility] Comment on above: Performed By: #### C MP, LIPID, TSH, T7 #### [facility] [address] [address] [address] Lupe Evangelista Calcium [Mass/Vol] 8.9 mg/dL Normal 8.5-10.1 [facility] Comment on above: Performed By: #### C MP, LIPID, TSH, T7 #### [facility] [address] [place] [address] Dr. Lupe Evangelista Chloride [Moles/Vol] 102 mmol/L Normal 98-107 [facility] Comment on above: Performed By: #### C MP, LIPID, TSH, T7 #### [facility] [address] [place] [address] Dr. Lupe Evangelista CO2 [Moles/Vol] 34.3 mmol/L Critically high 21.0-32.0 [facility] Comment on above: Performed By: #### C MP, LIPID, TSH, T7 #### [facility] [address] [place] [address] Dr. Lupe Evangelista Creatinine [Mass/Vol] 0.73 mg/dL Normal 0.55-1.02 [facility] Comment on above: Performed By: #### C MP, LIPID, TSH, T7 #### [facility] [address] [place] [address] Dr. Lupe Evangelista EGFR-AF COLOMBIAN >60 Normal >=60 [facility] Comment on above: Performed By: #### C MP, LIPID, TSH, T7 #### [facility] [address] [place] [address] Dr. Lupe Evangelista EGFR-NON AF COLOMBIAN >60 Normal >=60 [facility] Comment on above: Performed By: #### C MP, LIPID, TSH, T7 #### [facility] [address] [place] [address] Dr. Lupe Evangelista Globulin (S) [Mass/Vol] 3.8 g/dL Normal [facility] Comment on above: Performed By: #### C MP, LIPID, TSH, T7 #### [facility] [address] [place] [address] Dr. Lupe Evangelista Glucose [Mass/Vol] 111 mg/dL Critically high 74-106 [facility] Comment on above: Performed By: #### C MP, LIPID, TSH, T7 #### [facility] [address] [address] [address] Lupe Evangelista Potassium [Moles/Vol] 4.3 mmol/L Normal 3.5-5.1 [facility] Comment on above: Performed By: #### C MP, LIPID, TSH, T7 #### [facility] [address] [address] [address] Lupe Evangelista Protein [Mass/Vol] 7.5 g/dL Normal 6.4-8.2 [facility] Comment on above: Performed By: #### C MP, LIPID, TSH, T7 #### [facility] [address] [place] [address] Dr. Lupe Evangelista Sodium [Moles/Vol] 139 mmol/L Normal 136-145 [facility] Comment on above: Performed By: #### C MP, LIPID, TSH, T7 #### [facility] [address] [place] [address] Dr. Lupe Evangelista Urea nitrogen [Mass/Vol] 11.0 mg/dL Normal 7.0-18.0 [facility] Comment on above: Performed By: #### C MP, LIPID, TSH, T7 #### [facility] [address] [place] [address] Dr. Lupe Evangelista Urea nitrogen/Creatinine [Mass ratio] 15.1 mg/mg Normal [facility] Comment on above: Performed By: #### C MP, LIPID, TSH, T7 #### [facility] [address] [place] [address] Dr. Lupe Evangelista TSHon 02-07-2022 TSH 2.224 uIU/mL Normal 0.358-3.[address] [facility] Comment on above: Performed By: #### C BC #### [facility] [address] [place] [address] Dr. Lupe Evangelista VITAMIN D 25 OHon 02-07-2022 VIT D 25-OH 17.8 ng/mL Normal [facility] Comment on above: Performed By: #### I DONNELL VITAD #### [facility] [address] [address] [address] Lupe Evangelista VIT D RANGES SEE BELOW Normal [facility] Comment on above: Result Comment: <20 ng/mL Vit D deficient 20 - <30 ng/mL Vit D insufficient 30 - 100 ng/mL Vit D sufficient >100 ng/mL Potential Toxicity Performed By: #### I DONNELL VITAD #### [facility] [address] [address] [address] Lupe Evangelista XR CHEST 2 Von [...] ARIANNE BRAGA Date: 2022-02-07 17:56 Normal [facility] CBC AUTO DIFFon 12-01-2021 BASO # 0.1 103/ul Normal 0.0-0.1 [facility] Comment on above: Performed By: #### C BC #### [facility] [address] [place] [address] Dr. Lupe Evangelista Basophils/100 WBC (Bld) 0.8 % Normal 0.2-2.0 [facility] Comment on above: Performed By: #### C BC #### [facility] [address] [place] [address] Dr. Lupe Evangelista EO # 0.4 103/ul Normal 0.0-0.7 [facility] Comment on above: Performed By: #### C BC #### [facility] [address] [place] [address] Dr. Lupe Evangelista Eosinophils/100 WBC (Bld) 5.4 % Normal 0.9-7.0 [facility] Comment on above: Performed By: #### C BC #### [facility] [address] [place] [address] Dr. Lupe Evangelista Erythrocyte distribution width (RBC) [Ratio] 16.3 % Critically high 11.0-15.0 [facility] Comment on above: Performed By: #### C BC #### [facility] Laboratory [address] [place] [address] Dr. Lupe Evangelista Hematocrit (Bld) [Volume fraction] 36.0 % Normal 36.0-48.0 [facility] Comment on above: Performed By: #### C BC #### [facility] [address] [place] [address] Dr. Lupe Evangelista Hemoglobin (Bld) [Mass/Vol] 10.4 g/dL Critically low 12.0-16.0 [facility] Comment on above: Performed By: #### C BC #### [facility] [address] [place] [address] Dr. Lupe Evangelista IG # 0.04 10e3/ul Critically high 0.00-0.03 [facility] Comment on above: Performed By: #### C BC #### [facility] [address] [place] [address] Dr. Lupe Evangelista IG % 0.6 % Critically high 0.0-0.5 [facility] Comment on above: Performed By: #### C BC #### [facility] [address] [place] [address] Dr. Lupe Evangelista LYMPH # 1.9 103/ul Normal 1.2-3.8 [facility] Comment on above: Performed By: #### C BC #### [facility] [address] [place] [address] Dr. Lupe Evangelista Lymphocytes/100 WBC (Bld) 29.1 % Normal 20.5-60.0 [facility] Comment on above: Performed By: #### C BC #### [facility] [address] [place] [address] Dr. Lupe Evangelista MANUAL DIFF REQ NO Normal [facility] Comment on above: Performed By: #### C BC #### [facility] [address] [place] [address] Dr. Lupe Evangelista MCH (RBC) [Entitic mass] 24.9 pg Critically low 26.7-34.0 [facility] Comment on above: Performed By: #### C BC #### [facility] [address] [place] [address] Dr. Lupe Evangelista MCHC (RBC) [Mass/Vol] 28.9 g/dL Critically low 29.9-35.2 [facility] Comment on above: Performed By: #### C BC #### [facility] [address] [place] [address] Dr. Lupe Evangelista MCV (RBC) [Entitic vol] 86.1 fL Normal 81.0-99.0 [facility] Comment on above: Performed By: #### C BC #### [facility] [address] [place] [address] Dr. Lupe Evangelista MONO # 0.7 103/ul Normal 0.3-0.8 [facility] Comment on above: Performed By: #### C BC #### [facility] [address] [place] [address] Dr. Lupe Evangelista Monocytes/100 WBC (Bld) 10.7 % Normal 1.7-12.0 [facility] Comment on above: Performed By: #### C BC #### [facility] [address] [place] [address] Dr. Lupe Evangelista NEUT # 3.4 103/ul Normal 1.4-6.5 [facility] Comment on above: Performed By: #### C BC #### [facility] [address] [place] [address] Dr. Lupe Evangelista Neutrophils/100 WBC (Bld) 53.4 % Normal 43.0-75.0 [facility] Comment on above: Performed By: #### C BC #### [facility] [address] [place] [address] Dr. Lupe Evangelista Platelet mean volume (Bld) [Entitic vol] 10.6 fL Normal 9.5-13.5 [facility] Comment on above: Performed By: #### C BC #### [facility] Laboratory [address] [address] [address] Lupe Evangelista PLT 320 103/ul Normal 150-450 [facility] Comment on above: Performed By: #### C BC #### [facility] [address] [place] [address] Dr. uLpe Evangelista RBC 4.18 106/ul Critically low 4.20-5.40 [facility] Comment on above: Performed By: #### C BC #### [facility] [address] [place] [address] Dr. Lupe Evangelista WBC 6.4 103/ul Normal 4.0-11.0 [facility] Comment on above: Performed By: #### C BC #### [facility] [address] [place] [address] Dr. Lupe Evangelista CRPon 12-01-2021 CRP 1.6 mg/dL Critically high <=1.0 [facility] Comment on above: Performed By: #### C RP #### [facility] [address] [place] [address] Dr. Lupe Evangelista CBC AUTO DIFFon 11-29-2021 BASO # 0.1 103/ul Normal 0.0-0.1 [facility] Comment on above: Performed By: #### C BC #### [facility] [address] [place] [address] Dr. Lupe Evangelista Basophils/100 WBC (Bld) 0.6 % Normal 0.2-2.0 [facility] Comment on above: Performed By: #### C BC #### [facility] [address] [place] [address] Dr. Lupe Evangelista EO # 0.4 103/ul Normal 0.0-0.7 [facility] Comment on above: Performed By: #### C BC #### [facility] [address] [place] [address] Dr. Lupe Evangelista Eosinophils/100 WBC (Bld) 5.4 % Normal 0.9-7.0 [facility] Comment on above: Performed By: #### C BC #### [facility] [address] [place] [address] Dr. Lupe Evangelista Erythrocyte distribution width (RBC) [Ratio] 16.5 % Critically high 11.0-15.0 [facility] Comment on above: Performed By: #### C BC #### [facility] [address] [place] [address] Dr. Lupe Evangelista Hematocrit (Bld) [Volume fraction] 36.1 % Normal 36.0-48.0 [facility] Comment on above: Performed By: #### C BC #### [facility] [address] [place] [address] Dr. Lupe Evangelista Hemoglobin (Bld) [Mass/Vol] 10.6 g/dL Critically low 12.0-16.0 [facility] Comment on above: Performed By: #### C BC #### [facility] [address] [place] [address] Dr. Lupe Evangelista IG # 0.03 10e3/ul Normal 0.00-0.03 [facility] Comment on above: Performed By: #### C BC #### [facility] [address] [place] [address] Dr. Lupe Evangelista IG % 0.4 % Normal 0.0-0.5 [facility] Comment on above: Performed By: #### C BC #### [facility] [address] [place] [address] Dr. Lupe Evangelista LYMPH # 2.3 103/ul Normal 1.2-3.8 [facility] Comment on above: Performed By: #### C BC #### [facility] [address] [place] [address] Dr. Lupe Evangelista Lymphocytes/100 WBC (Bld) 29.9 % Normal 20.5-60.0 [facility] Comment on above: Performed By: #### C BC #### [facility] [address] [place] [address] Dr. Lupe Evangelista MANUAL DIFF REQ NO Normal [facility] Comment on above: Performed By: #### C BC #### [facility] [address] [place] [address] Dr. Lupe Evangelista MCH (RBC) [Entitic mass] 25.4 pg Critically low 26.7-34.0 [facility] Comment on above: Performed By: #### C BC #### [facility] [address] [place] [address] Dr. Lupe Evangelista MCHC (RBC) [Mass/Vol] 29.4 g/dL Critically low 29.9-35.2 [facility] Comment on above: Performed By: #### C BC #### [facility] [address] [place] [address] Dr. Lupe Evangelista MCV (RBC) [Entitic vol] 86.4 fL Normal 81.0-99.0 [facility] Comment on above: Performed By: #### C BC #### [facility] [address] [place] [address] Dr. Lupe Evangelista MONO # 0.9 103/ul Critically high 0.3-0.8 [facility] Comment on above: Performed By: #### C BC #### [facility] [address] [place] [address] Dr. Lupe Evangelista Monocytes/100 WBC (Bld) 10.9 % Normal 1.7-12.0 [facility] Comment on above: Performed By: #### C BC #### [facility] [address] [place] [address] Dr. Lupe Evangelista NEUT # 4.1 103/ul Normal 1.4-6.5 [facility] Comment on above: Performed By: #### C BC #### [facility] [address] [place] [address] Dr. Lupe Evangelista Neutrophils/100 WBC (Bld) 52.8 % Normal 43.0-75.0 [facility] Comment on above: Performed By: #### C BC #### [facility] [address] [place] [address] Dr. Lupe Evangelista Platelet mean volume (Bld) [Entitic vol] 11.2 fL Normal 9.5-13.5 [facility] Comment on above: Performed By: #### C BC #### [facility] [address] [place] [address] Dr. Lupe Evangelista PLT 351 103/ul Normal 150-450 [facility] Comment on above: Performed By: #### C BC #### [facility] [address] [address] [address] Lupe Evangelista RBC 4.18 106/ul Critically low 4.20-5.40 [facility] Comment on above: Performed By: #### C BC #### [facility] [address] [place] [address] Dr. Lupe Evangelista WBC 7.8 103/ul Normal 4.0-11.0 [facility] Comment on above: Performed By: #### C BC #### [facility] [address] [place] [address] Dr. Lupe Evangelista CRPon 11-29-2021 CRP 1.7 mg/dL Critically high <=1.0 [facility] Comment on above: Performed By: #### C RP, CMP #### [facility] [address] [place] [address] Dr. Lupe Evangelista CULTURE BLOODon 11-29-2021 Microscopic examination of blood, culture Culture Observations: NO GROWTH AT 5 DAYS. Normal [facility] Comment on above: Performed By: #### C BC #### [facility] [address] [place] [address] Dr. Lupe Evangelista Microscopic examination of blood, culture Culture Observations: NO GROWTH AT 5 DAYS. Normal [facility] Comment on above: Performed By: #### C BC #### [facility] [address] [place] [address] Dr. Lupe Evangelista PROF 14(COMP METB)on 022 Albumin [Mass/Vol] 3.5 g/dL Normal 3.4-5.0 [facility] Comment on above: Performed By: #### C RP, CMP #### [facility] [address] [place] [address] Dr. Lupe Evangelista Albumin/Globulin [Mass ratio] 0.9 {ratio} Normal [facility] Comment on above: Performed By: #### C RP, CMP #### [facility] [address] [address] [address] Lupe Evangelista ALP [Catalytic activity/Vol] 105 U/L Normal 46-116 [facility] Comment on above: Performed By: #### C RP, CMP #### [facility] [address] [place] [address] Dr. Lupe Evangelista ALT [Catalytic activity/Vol] 15 U/L Normal 14-59 [facility] Comment on above: Performed By: #### C RP, CMP #### [facility] [address] [place] [address] Dr. Lupe Evangelista Anion gap [Moles/Vol] 7.3 mmol/L Normal [facility] Comment on above: Performed By: #### C RP, CMP #### [facility] [address] [place] [address] Dr. Lupe Evangelista AST [Catalytic activity/Vol] 21 U/L Normal 15-37 [facility] Comment on above: Performed By: #### C RP, CMP #### [facility] [address] [place] [address] Dr. Lupe Evangelista Bilirubin [Mass/Vol] 0.4 mg/dL Normal 0.2-1.0 [facility] Comment on above: Performed By: #### C RP, CMP #### [facility] [address] [place] [address] Dr. Lupe Evangelista Calcium [Mass/Vol] 8.5 mg/dL Normal 8.5-10.1 [facility] Comment on above: Performed By: #### C RP, CMP #### [facility] [address] [place] [address] Dr. Lupe Evangelista Chloride [Moles/Vol] 102 mmol/L Normal 98-107 [facility] Comment on above: Performed By: #### C RP, CMP #### [facility] [address] [address] [address] Lupe Evangelista CO2 [Moles/Vol] 31.9 mmol/L Normal 21.0-32.0 [facility] Comment on above: Performed By: #### C RP, CMP #### [facility] [address] [place] [address] Dr. Lupe Evangelista Creatinine [Mass/Vol] 0.76 mg/dL Normal 0.55-1.02 [facility] Comment on above: Performed By: #### C RP, CMP #### [facility] [address] [place] [address] Dr. Lupe Evangelista EGFR-AF COLOMBIAN >60 Normal >=60 [facility] Comment on above: Performed By: #### C RP, CMP #### [facility] [address] [place] [address] Dr. Lupe Evangelista EGFR-NON AF COLOMBIAN >60 Normal >=60 [facility] Comment on above: Performed By: #### C RP, CMP #### [facility] [address] [place] [address] Dr. Lupe Evangelista Globulin (S) [Mass/Vol] 3.9 g/dL Normal [facility] Comment on above: Performed By: #### C RP, CMP #### [facility] [address] [place] [address] Dr. Lupe Evangelista Glucose [Mass/Vol] 92 mg/dL Normal 74-106 [facility] Comment on above: Performed By: #### C RP, CMP #### [facility] [address] [place] [address] Dr. Lupe Evangelista Potassium [Moles/Vol] 4.2 mmol/L Normal 3.5-5.1 [facility] Comment on above: Performed By: #### C RP, CMP #### [facility] [address] [place] [address] Dr. Lupe Evangelista Protein [Mass/Vol] 7.4 g/dL Normal 6.4-8.2 [facility] Comment on above: Performed By: #### C RP, CMP #### [facility] [address] [place] [address] Dr. Lupe Evangelista Sodium [Moles/Vol] 137 mmol/L Normal 136-145 [facility] Comment on above: Performed By: #### C RP, CMP #### [facility] [address] [address] [address] Lupe Evangelista Urea nitrogen [Mass/Vol] 8.0 mg/dL Normal 7.0-18.0 [facility] Comment on above: Performed By: #### C RP, CMP #### [facility] [address] [address] [address] Lupe Evangelista Urea nitrogen/Creatinine [Mass ratio] 10.5 mg/mg Normal [facility] Comment on above: Performed By: #### C RP, CMP #### [facility] [address] [place] [address] Dr. Lupe Evangelista SED RATE [facility] 2021 SED RATE 27 mm/hr Normal <=30 [facility] Comment on above: Performed By: #### S EDR #### [facility] [address] [place] [address] Dr. Lupe Evangelista XR KNEE RT 4V [...] LAWRENCE Date: 2021-11-15 21:55 Normal [facility] Vital Signs Date Time Vital Sign Value Performing Clinician [place] 07-31-2023 14:30-0400 Blood Pressure Location Galileo Mcnamara [facility] 07-31-2023 14:30-0400 Diastolic blood pressure 62 mm[Hg] Galileo Mcnamara [facility] 07-31-2023 14:30-0400 Heart rate 68 /min Galileo CAMACHOL [facility] 07-31-2023 14:30-0400 Respiratory rate 16 /min Galileo CAMACHOL [facility] 07-31-2023 14:30-0400 Systolic blood pressure 120 mm[Hg] [facility]OL [facility] En[facility] Encounter Date Encounter Type Care Provider Facility Start: 09-24-2023 End: 09-24-2023 ambulatory Galileo R MELL Facility: [facility] Start: 09-24-2023 End: 09-24-2023 Patient encounter procedure Galileo CAMACHOL [facility] Start: 09-18-2023 End: 09-18-2023 ambulatory Galileo Cleary [facility] Work Phone: Start: 09-18-2023 End: 09-18-2023 Departed Referred MD Galileo Cleary Work Phone: [facility] Start: 09-18-2023 End: 09-18-2023 ambulatory Galileo CLEARY Facility:[id number] Start: 07-31-2023 End: 07-31-2023 ambulatory Galileo R NILRenu Facility: [facility] Start: 07-31-2023 End: 07-31-2023 [facility] Start: 07-19-2023 ambulatory Galileo CLEARY Facility:Fabricio [...] Provider Fa cility 12-07-2021 SARS-CoV-2 (COVID-19 ) [id number] Galileo NILL [facility] 07-14-2021 SARS-CoV-2 mRNA (iwmfhkpchbg-uqaq-sbpum se) vaccine Galileo NILL [facility] 12-27-2020 SARS-CoV-2 (COVID-19 ) mRNA BNT-162b2 vax Galileo NILL [facility] 05-18-2020 SARS-CoV-2 (COVID-19 ) mRNA BNT-162b2 vax Galileo NILL [facility] Comment on above: Result Comment: 2023: [id number] 04-27-2020 SARS-CoV-2 (COVID-19 ) mRNA BNT-162b2 vax Galileo CLEARY [facility] Comment on above: Result Comment: 2023: [id number] Payers Date Payer Category Payer Self-pay [id number] 1960 Medicare [id number] 1960 Unknown [id number] 1950 Unknown [id number] 1950 Unknown [id number] 1950 Unknown [id number] 1949 Unknown [id number] 1949 Unknown [id number] 1949 Unknown [id number] 1950 Unknown [id number] 1950 Unknown [id number] Unknown Regular Insurance [id number] Unknown [id number] Worker's Compensation [employer] [facility] [id number] Social History Date Type Detail Facility Start: 07-31-2023 Tobacco smoking status Never s moked tobacco (finding) [facility] Female [facility] Start: 1950 Sex Assigned At Female F [facility] Functional Status Date Assessment Result Facility 07-31-2023 [facility] Clinical Note 07-31-2023 Note Date & Type [...] plan excisional biopsy under local anesthesia at [facility], for definitive diagnosis and treatment; informed consent [...] Immunizations Vaccine Date Status Comments SARS-CoV-2 (COVID-19) [id number].[id number] 12/07/2021 Recorded SARSCoV2 mRNA(drivvbyaz-twuq-zatxpf) vac 07/14/2021 Recorded SARS-CoV-2 (COVID-19) mRNA BNT-162b2 vax 12/27/2020 Recorded SARS-CoV-2 (COVID-19) mRNA BNT-162b2 vax 05/18/2020 Recorded 2023-07-19: [id number] SARS-CoV-2 (COVID-19) mRNA BNT-162b2 vax 04/27/2020 Recorded 2023-07-19: [id number] [facility] Comment on above: Result Comment: Elec tronically Signed By: MELL MONGE, Galileo Roberts\Date and Time Signed: 07/31/23 15:12 EDT Evaluation + Plan note Note Date & Type Note Facility Evaluation + Plan note No data available for this section [facility] Evaluation note Note Date & Type Note Facility [facility] note [facility] Discharge instructions Note Date & Type Note Facility Hospital Discharge instructions No data available for this section [facility] Progress note Note Date & Type Note Facility Progress note No data available for this section [facility] Summary Purpose Family History No [...] CREATED AUTHOR AUTHOR'S ORGANIZ ATION 09/26/2023 [facility] DATE CREATED AUTHOR AUTHOR'S ORGANIZ ATION 03/18/2024 [facility] Patient Care team informatio [...] BE BASED ON THE PRIMARY CLINICAL RECORDS. [employer] provides no warranty or guarantee of the accuracy or completeness of information in this document.
--- NOTE | 2025-01-03 13:01 | ECG_ITS ---
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 Measurements Intervals [place] Rate: 146 P: -[id number] TN: -[id number] QRS: 58 QRSD: 78 T: 43 QT: 290 QTc: 374 Interpretive Statements [id number] Atrial fibrillation with rapid ventricular response [id number] depression, probably digitalis effect 9150 abnormal ECG Compared to ECG 03/11/2024 12:51:24 ST (T wave) deviation now present Sinus tachycardia no longer present Myocardial infarct finding no longer present Electronically Signed On 01-03-2025 14:32:53 EDT by CARRIE BRADY M.D.
--- NOTE | 2025-01-03 13:01 | XR_ITS ---
The [address] [address] Patient Name: DARRYL ZAYAS MRN: [id number] date: 1950 Sex: F Assigned Patient Location: ER Current Patient Location: ER Accession/Order Number: [id number] Exam Date: 01/03/2025 13:30 Report Date: 01/03/2025 14:00 At the request of: JANE MCKINLEY MD Procedure: XR chest 1V PA CHEST: CLINICAL HISTORY: SOB COMPARISON: 03/11/2024 Enlarged cardiomediastinal silhouette. Similar appearance of the mediastinal contours. Hazy bibasilar opacities trace blunting costophrenic angles. XR/XR chest 1V IMPRESSION: STABLE CHRONIC FINDINGS INCLUDING CARDIOMEGALY AND LIKELY UNDERLYING EMPHYSEMA. TRACE BLUNTING BOTH COSTOPHRENIC ANGLES WITH LIKELY MILD BIBASILAR ATELECTASIS. Impression dictated by: Jignesh Jaime M.D. 01/03/2025 2:00 PM Dictation Location: [place] [address] Electronically authenticated by: [id number] Y Date: 01/03/2025 14:00
--- NOTE | 2025-01-03 13:04 | ED.GENADUL1 ---
HPI HPI - General Adult General Chief complaint: Weakness Stated complaint: CHEST CONGESTION, URINARY ISSUES Time Seen by Provider: 01/03/25 12:57 Source: patient and family Mode of arrival: Wheelchair Limitations: no limitations History of Present Illness HPI narrative: 74-year-old female presents from home for generalized weakness. She has been urinating frequently and has not had a good appetite for few days. She does not have palpitations or chest pain. No syncope. She has no personal history of atrial fibrillation. Related Data Home Medications ?Medication ?Instructions ?Recorded ?Confirmed fluticasone furoate 200 1 inh inhalation DAILY 08/13/23 01/03/25 mcg-vilanterol 25 mcg/dose inhalation powder (Breo Ellipta) albuterol sulfate 2.5 mg/3 mL 2.5 mg inhalation Q6H PRN 09/17/23 01/03/25 (0.083 %) solution for nebulization shortness of breath or wheezing calcitonin (salmon) 200 1 spray intranasal DAILY 02/13/24 01/03/25 unit/actuation nasal spray albuterol sulfate 90 mcg/actuation 2 inh inhalation Q4H PRN shortness 02/28/24 01/03/25 aerosol inhaler (Ventolin HFA) of breath or wheezing voriconazole 200 mg tablet 200 mg PO Q12H 01/03/25 01/03/25 Allergies Allergy/AdvReac Type Severity Reaction Status Date / Time aspirin AdvReac Severe shortness Verified 01/03/25 12:57 of breath codeine AdvReac Severe shortness Verified 01/03/25 12:57 of breath morphine AdvReac Severe shortness Verified 01/03/25 12:57 of breath propoxyphene (From Darvon) AdvReac Mild shortness Verified 01/03/25 12:57 of breath Opioid HPI Opioid Management Most Recent Opioid Data: Last Pain Scale 7 03/14/24, 11:00 Last Pain Intensity 8 03/14/24, 09:47 Last ORT Total Score 0 03/11/24, 17:08 Last ORT Risk Category Low Risk 03/11/24, 17:08 Review of Systems ROS Narrative A ten point review of systems is negative except as noted above. 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) Elevated brain natriuretic peptide (BNP) level ?R79.89 - Other specified abnormal findings of blood chemistry (ICD-10) WHITNEY (acute kidney injury) ?N17.9 - Acute kidney failure, unspecified (ICD-10) Vitamin D deficiency ?E55.9 - Vitamin D deficiency, unspecified (ICD-10) Vitamin B deficiency ?E53.9 - Vitamin B deficiency, unspecified (ICD-10) Osteoporosis ?M81.0 - Age-related osteoporosis without current pathological fracture (ICD-10) Benign neoplasm of ear ?D23.20 - Other benign neoplasm of skin of unspecified ear and external auricular canal (ICD-10) Insomnia ?G47.00 - Insomnia, unspecified (ICD-10) Gout ?M10.9 - Gout, unspecified (ICD-10) GERD (gastroesophageal reflux disease) ?K21.9 - Gastro-esophageal reflux disease without esophagitis (ICD-10) Eczema ?L30.9 - Dermatitis, unspecified (ICD-10) COPD (chronic obstructive pulmonary disease) ?J44.9 - Chronic obstructive pulmonary disease, unspecified (ICD-10) Asthma ?J45.909 - Unspecified asthma, uncomplicated (ICD-10) Surgical History (Updated 02/28/24 @ 11:48 by Lizzeth Vivar RN) Hx of cardiac cath ?Z98.890 - Other specified postprocedural states (ICD-10) History of bronchoscopy ?Z98.890 - Other specified postprocedural states (ICD-10) 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.2 - Acquired absence of lung [part of] (ICD-10) History of repair of hiatal hernia ?Z98.890 - Other specified postprocedural states (ICD-10) ?Z87.19 - Personal history of other diseases of the digestive system (ICD-10) History of lumpectomy of left breast ?Z98.890 - Other specified postprocedural states (ICD-10) History of hip surgery ?Z98.890 - Other specified postprocedural states (ICD-10) Hx of cholecystectomy ?Z90.49 - Acquired absence of other specified parts of digestive tract (ICD-10) H/O cataract extraction ?Z98.49 - Cataract extraction status, unspecified eye (ICD-10) History of arthroplasty of right hip ?Z96.641 - Presence of right artificial hip joint (ICD-10) History of laparoscopic appendectomy ?Z90.49 - Acquired absence of other specified parts of digestive tract (ICD-10) Family History (Updated 02/28/24 @ 11:48 by Lizzeth Vivar RN) Other Breast cancer Dementia Heart disease Stroke Social History Within the past year, how often did you have a drink containing alcohol: never Within the past year, how often did you have six or more drinks on one occasion: never Score interpretation: A score less than 3 is consistent with normal alcohol consumption. 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 Highest level of school completed/degree received: high school graduate Little interest or pleasure in doing things: not at all Feeling down, depressed, or hopeless: not at all Exam Narrative Exam Narrative: Nurses note and vital signs reviewed and patient is not hypoxic. General:The patient appears in no acute respiratory distress. She appears fatigued. Skin:Warm, dry, no pallor noted.There is no rash noted. Head:Normocephalic, atraumatic Eye: Normal conjunctiva, no drainage Ears, Nose, Mouth, and Throat: oral mucosa is moist. Nares patent. Cardiovascular: Irregularly irregular and tachycardic Respiratory: Clear to auscultation with equal breath sounds Back:non-tender GI: Soft and nontender Musculoskeletal: The patient has no evidence of calf tenderness, no pitting edema, symmetrical pulses noted bilaterally Neurological: Awake and alert, normal speech Psychiatric:Cooperative Constitutional Vital Signs, click to edit/add: Last Vital Signs Temp 98.1 F 01/03/25 12:41 Pulse 95 H 01/03/25 15:40 Resp 27 H 01/03/25 15:40 BP 121/77 01/03/25 15:30 Pulse Ox 96 01/03/25 12:41 O2 Del Method Room Air 01/03/25 12:41 Course Vital Signs Vital signs: Vital Signs Temperature 98.1 F 01/03/25 12:41 Pulse Rate 155 H 01/03/25 12:41 Respiratory Rate 20 01/03/25 12:41 Blood Pressure 133/86 01/03/25 12:41 Pulse Oximetry 96 01/03/25 12:41 Oxygen Delivery Method Room Air 01/03/25 12:41 Temperature 98.1 F 01/03/25 12:41 Pulse Rate 95 H 01/03/25 15:40 Respiratory Rate 27 H 01/03/25 15:40 Blood Pressure 121/77 01/03/25 15:30 Pulse Oximetry 96 01/03/25 12:41 Oxygen Delivery Method Room Air 01/03/25 12:41 Medical Decision Making MDM Narrative Medical decision making narrative: The patient presents with new onset atrial fibrillation with RVR. WBC is 19,000 and blood cultures were ordered. She does not seem to have any infectious type symptoms. Chest x-ray does not show infiltrate and urinalysis is negative. She was given to 10 mg boluses of IV Cardizem and then placed on a Cardizem drip at 5 mg/h. Her heart rate has come down to the low 100s and she is being admitted. Treatment diagnosis and disposition were discussed with the patient and her . Differential Diagnosis Differential Diagnosis: Atrial fibrillation, NSTEMI, dehydration, acute kidney injury Medical Records Medical records reviewed: Yes I reviewed the patient's medical records Medical records narrative: Only previous EKG showed sinus rhythm in February of last year. Lab Data Lab results reviewed: Yes I reviewed the patient's lab results Labs: Lab Results 01/03/25 01/03/25 01/03/25 Range/Units 12:58 13:25 14:07 WBC 19.8 H (4.0-11.0) 10^3/uL RBC 5.35 (4.20-5.40) 10^6/uL Hgb 14.0 (12.0-16.0) g/dL Hct 44.6 (36.0-48.0) % MCV 83.4 (81.0-99.0) fL MCH 26.2 L (26.7-34.0) pg MCHC 31.4 (29.9-35.2) g/dL RDW 15.2 H (11.0-15.0) % Plt Count 304 (150-450) 10^3/uL MPV 13.0 (9.5-13.5) fL Seg Neuts % (Manual) 72.0 (43.0-75.0) Lymphocytes % (Manual) 20.0 L (20.5-60.0) % Monocytes % (Manual) 8.0 (1.7-12.0) % Eosinophils % (Manual) 0.0 L (0.9-7.0) % Basophils % (Manual) 0.0 L (0.2-2.0) % Neutrophils # (Manual) 14.25 H (1.4-6.5) 10^3/uL Lymphocytes # (Manual) 3.96 H (1.20-3.80) 10^3/uL Monocytes # (Manual) 1.58 H (0.30-0.80) 10^3/uL Eosinophils # (Manual) 0.00 (0.00-0.70) 10^3/uL Basophils # (Manual) 0.00 (0.00-0.10) 10^3/uL Sodium 138 (136-145) mmol/L Potassium 3.7 (3.5-5.1) mmol/L Chloride 96 L (98-107) mmol/L Carbon Dioxide 28.6 (21.0-32.0) mmol/L Anion Gap 17.1 BUN 17.0 (7.0-18.0) mg/dL Creatinine 0.98 (0.55-1.02) mg/dL Est GFR ( Amer) >60 (>=60 mL/min/1.73m^2) Est GFR (Non-Af Amer) 55 L (>=60 mL/min/1.73m^2) BUN/Creatinine Ratio 17.3 Glucose 150 H (74-106) mg/dL Calcium 9.3 (8.5-10.1) mg/dL Troponin I High Sens 34.3 36.6 (4.0-51.3) pg/mL Urine Color (YELLOW) Urine Clarity (CLEAR) Urine pH (5.0-9.0) Ur Specific Hancock (1.005-1.025) Urine Protein (NEG/TRACE) mg/dL Urine Glucose (UA) (NEGATIVE) mg/dL Urine Ketones (NEGATIVE) mg/dL Urine Occult Blood (NEGATIVE) Urine Nitrite (NEGATIVE) Urine Bilirubin (NEGATIVE) Urine Urobilinogen (0.2-1.0) EU/dL Ur Leukocyte Esterase (NEGATIVE) Urine RBC (0-2) #/HPF Urine WBC (NONE SEEN) #/HPF Ur Squamous Epith Cells (NONE/RARE) #/LPF Urine Crystals (None Seen) #/HPF Urine Bacteria (NONE SEEN) #/HPF Urine Casts (NONE SEEN) #/LPF Hyaline Casts Urine Mucus (NONE SEEN) Ur Culture Indicated? 01/03/25 Range/Units 15:17 WBC (4.0-11.0) 10^3/uL RBC (4.20-5.40) 10^6/uL Hgb (12.0-16.0) g/dL Hct (36.0-48.0) % MCV (81.0-99.0) fL MCH (26.7-34.0) pg MCHC (29.9-35.2) g/dL RDW (11.0-15.0) % Plt Count (150-450) 10^3/uL MPV (9.5-13.5) fL Seg Neuts % (Manual) (43.0-75.0) Lymphocytes % (Manual) (20.5-60.0) % Monocytes % (Manual) (1.7-12.0) % Eosinophils % (Manual) (0.9-7.0) % Basophils % (Manual) (0.2-2.0) % Neutrophils # (Manual) (1.4-6.5) 10^3/uL Lymphocytes # (Manual) (1.20-3.80) 10^3/uL Monocytes # (Manual) (0.30-0.80) 10^3/uL Eosinophils # (Manual) (0.00-0.70) 10^3/uL Basophils # (Manual) (0.00-0.10) 10^3/uL Sodium (136-145) mmol/L Potassium (3.5-5.1) mmol/L Chloride (98-107) mmol/L Carbon Dioxide (21.0-32.0) mmol/L Anion Gap BUN (7.0-18.0) mg/dL Creatinine (0.55-1.02) mg/dL Est GFR ( Amer) (>=60 mL/min/1.73m^2) Est GFR (Non-Af Amer) (>=60 mL/min/1.73m^2) BUN/Creatinine Ratio Glucose (74-106) mg/dL Calcium (8.5-10.1) mg/dL Troponin I High Sens (4.0-51.3) pg/mL Urine Color Yellow (YELLOW) Urine Clarity Clear (CLEAR) Urine pH 5.5 (5.0-9.0) Ur Specific Hancock >=1.030 A (1.005-1.025) Urine Protein 30 A (NEG/TRACE) mg/dL Urine Glucose (UA) Negative (NEGATIVE) mg/dL Urine Ketones >=80 A (NEGATIVE) mg/dL Urine Occult Blood Small A (NEGATIVE) Urine Nitrite Negative (NEGATIVE) Urine Bilirubin Moderate A (NEGATIVE) Urine Urobilinogen 1.0 (0.2-1.0) EU/dL Ur Leukocyte Esterase Negative (NEGATIVE) Urine RBC 2-5 A (0-2) #/HPF Urine WBC 0-2 A (NONE SEEN) #/HPF Ur Squamous Epith Cells Few A (NONE/RARE) #/LPF Urine Crystals None seen (None Seen) #/HPF Urine Bacteria Trace A (NONE SEEN) #/HPF Urine Casts Seen A (NONE SEEN) #/LPF Hyaline Casts Rare Urine Mucus Small A (NONE SEEN) Ur Culture Indicated? No Imaging Data Chest x-ray: Radiologist's impression: ITS Impressions Chest X-Ray 01/03/25 13:01 IMPRESSION: STABLE CHRONIC FINDINGS INCLUDING CARDIOMEGALY AND LIKELY UNDERLYING EMPHYSEMA. TRACE BLUNTING BOTH COSTOPHRENIC ANGLES WITH LIKELY MILD BIBASILAR ATELECTASIS. Impression dictated by: Jignesh Jaime M.D. 01/03/2025 2:00 PM Dictation Location: [place] [id number] Electronically authenticated by: [id number] Y Date: 01/03/2025 14:00 ECG Data Attestation: I personally reviewed and interpreted this ECG as follows: (EKG on my interpretation shows atrial fibrillation with RVR, rate 146) Critical Care Time Critical Care Time Critical Care Time: Yes Total Critical Care Time: 40 Attestation: Due to the high probability of sudden and clinically significant deterioration in the patient's condition he/she required the highest level of my preparedness to intervene urgently I provided critical care time including documentation time, medication orders and management, reevaluation, vital sign assessment, ordering and reviewing of lab tests, ordering and reviewing of x-ray studies, and admission orders. Aggregate critical care time is 40 minutes including only time during which I was engaged in work directly related to his/her care and did not include time spent treating other patients simultaneously. Discharge Plan Discharge Chief Complaint: Weakness Clinical Impression: Atrial fibrillation with rapid ventricular response Patient Disposition: Admitted As Inpatient Time of Disposition Decision: 15:53 Condition: Fair
[2025-01-03 13:10] LABS: Hematocrit 44.6 % (36.0-48.0); Hemoglobin 14.0 g/dL (12.0-16.0); Mean Corpuscular HGB Conc 31.4 g/dL (29.9-35.2); Mean Corpuscular Hemoglobin 26.2 pg (26.7-34.0); Mean Corpuscular Volume 83.4 fL (81.0-99.0); Platelet Count 304 10^3/uL (150-450); Red Blood Count 5.35 10^6/uL (4.20-5.40); White Blood Count 19.8 10^3/uL (4.0-11.0)
[2025-01-03] MEDS: DILTIAZEM HCL 25 MG/5 ML VIAL 10 MG IV ×2 (13:13→13:59)
[2025-01-03 13:32] LABS: Basophils Abs Manual 0.00 10^3/uL (0.00-0.10); Basophils Percent Manual 0.0 % (0.2-2.0); Eosinophils Absolute Manual 0.00 10^3/uL (0.00-0.70); Eosinophils Percent Manual 0.0 % (0.9-7.0); Lymphocytes Absolute Manual 3.96 10^3/uL (1.20-3.80); Lymphocytes Percent Manual 20.0 % (20.5-60.0); Monocytes Absolute Manual 1.58 10^3/uL (0.30-0.80); Monocytes Percent Manual 8.0 % (1.7-12.0); Segmented Neut Absolute Manual 14.25 10^3/uL (1.4-6.5); Segmented Neutrophils % Manual 72.0 (43.0-75.0)
[2025-01-03 13:38] LABS: Anion Gap 17.1; Blood Urea Nitrogen 17.0 mg/dL (7.0-18.0); Calcium 9.3 mg/dL (8.5-10.1); Carbon Dioxide 28.6 mmol/L (21.0-32.0); Chloride 96 mmol/L (98-107); Estimated GFR (African America >60 (>=60 mL/min/1.73m^2); Estimated GFR (Non-African Ame 55 (>=60 mL/min/1.73m^2); Glucose 150 mg/dL (74-106); Potassium 3.7 mmol/L (3.5-5.1); Sodium 138 mmol/L (136-145)
[2025-01-03 15:30] LABS: Glucose Urine UA NEGATIVE (NEGATIVE)
[2025-01-03 15:36] LABS: Crystals Seen? None Seen #/HPF (None Seen); Urine Culture Indicated NO
[2025-01-03 15:37] LABS: Cast Seen? SEEN #/LPF (NONE SEEN)
--- OUTSIDE RECORDS SUMMARY | 2025-01-03 16:34 | XMS_ITS | CCD ---
Author Organization [facility] Care Team Providers Care Mandrel Press Hand Name Role Phone NAYY ., DR CARREON [...] Care Physician MD Galileo Cleary Attending Provider [phone] Galileo CLEARY Attending Unavailable NILL, Galileo Jarrett Attending Unavailable NayyVelma Referring Unavailable NILLGalileo Attending Unavailable Nill, Galileo Jarrett Attending Unavailable Nill, Galileo Jarrett Admitting Unavailable Allergies Allergy Classification Reported Allergen(s) Allergy Type Date of Onset Reaction(s) Facility (3 sources) Aspirin; Translations: [aspirin] Drug Allergy 4 Difficulty Breathing [facility] Repository (3 sources) Codeine; Translations: [codeine] Drug Allergy 8 Difficulty Breathing [facility] (3 sources) Morphine; Translations: [morphine] Drug Allergy 9 Difficulty Breathing [facility] (2 sources) Propoxyphene; Translations: [Darvon] Drug Allergy 3 [facility] (1 source) Sulfamethoxazole / Trimethoprim Drug Allergy 3 [facility] (3 sources) Acetaminophen / HYDROcodone; Translations: [acetaminophen-hydro codone] Drug Allergy Dyspnea (finding) [facility] (2 sources) Aspirin; Translations: [aspirin] Drug Allergy Dyspnea (finding) [facility] (2 sources) Codeine; Translations: [codeine] Drug Allergy Dyspnea (finding) [facility] (2 sources) Morphine; Translations: [morphine] Drug Allergy Dyspnea (finding) [facility] (3 sources) Propoxyphene; Translations: [propoxyphene] Drug Allergy 9 Dyspnea (finding) [facility] (2 sources) Sulfamethoxazole; Translations: [sulfamethoxazole] Drug Allergy 9 Difficulty Breathing [facility] (2 sources) Trimethoprim; Translations: [trimethoprim] Drug Allergy 9 Difficulty Breathing [facility] (1 source) Aspirin Drug Allergy 9 [facility] (1 source) Codeine Drug Allergy 9 [facility] (1 source) Morphine Drug Allergy 9 [facility] (1 source) Propoxyphene Drug Allergy 9 [facility] Rep[facility] Medications Current Medications Medication Drug Class(es) [...] sources) Calcitonin Start: 05-26-2018 End: 06-02-2018 Calcitonin ([place]) Active 1 SPRAYS NASAL Daily 2.7 30 [...] us for your care. Chelsea [facility] General Surgery Office/Clini c Noteon 09-24-2023 [...] Immunizations Vaccine Date Status Comments SARS-CoV-2 (COVID-19) mRNAMUL.ORD![id number] 12/07/2021 Recorded SARSCoV2 mRNA(arszrliez-srih-eqlgr s) vac 07/14/2021 Recorded SARS-CoV-2 (COVID-19) mRNA BNT-162b2 vax 12/27/2020 Recorded SARS-CoV-2 (COVID-19) mRNA BNT-162b2 vax 05/18/2020 Recorded 2023-07-19: TPV70 SARS-CoV-2 (COVID-19) mRNA BNT-162b2 vax 04/27/2020 Recorded 2023-07-19: TPV70 Normal [facility] Comment on above: Result Comment: Elec tronically Signed By: MELL MONGE, Galileo Agrawalbr\Date and Time Signed: 09/24/23 14:47 EDT Cruz 09-18-2023 L Specimen: [id number] Received: 09/19/23 Status: KISHAN Garnett Num: [id number] Spec Type: Surgical Subm Dr: Galileo Cleary MD FACS Tissues: A Soft Tissue/Surgical Margin-Other than Tumor,Mass,Lip or Angella (RT EAR) Procedures: HE/4, Gross/Micro L4 Age/ Patient Sex Location Account Attending Physician Ilana Moore 73/F [place] [id number] Galileo Cleary MD FACS SPEC NUM: [id number] RECD: 09/19/23 STATUS: INGRIDNicole GARNETT NUM: [id number] MARCO: 09/18/23-[address]: Galileo Cleary MD FACS ENTERED: 09/19/23-[address] [facility] [address]: Con Romero SPEC TYPE: Surgical [...] bisected and entirely submitted in A1. Specimen: [id number] Received: 09/19/23 Status: KISHAN Tamir Num: [id number] Spec Type: Surgical Subm Dr: Galileo Cleary MD FACS Tissues: A Soft Tissue/Surgical Margin-Other than Tumor,Mass,Lip or Angella (RT EAR) Procedures: HE/Melissa, Gross/Micro L4 Patient: OscarIlana L [id number] (Continued) Specimen: [id number] Received: 09/19/23 (Continued) Signed (signature on file) Cookie Evangelista MD 09/23/23 1129 Specimen: [id number] Received: 09/19/23 Status: KISHAN Coxalisha Num: [id number] Spec Type: Surgical Subm Dr: Galileo Cleary MD FACS Tissues: A Soft Tissue/Surgical Margin-Other than Tumor,Mass,Lip or Angella (RT EAR) Procedures: CLAUDE/Melissa, Gross/Micro L4 Patient: Ilana Moore [id number] (Continued) Specimen: [id number] Received: 09/19/23 (Continued) CPT Codes 81162 Specimen: [id number] Received: 09/19/23 Status: KISHAN Garnett Num: [id number] Spec Type: Surgical Subm Dr: Galileo Cleary MD FACS Tissues: A Soft Tissue/Surgical Margin-Other than Tumor,Mass,Lip or Angella (RT EAR) Procedures: /Melissa, Gross/Micro L4 Patient: Ilana Moore [id number] (Continued) Signed (signature on file) Cookie Evangelista MD 09/23/23 1129 Normal [facility] Consent for Procedure/Surger yon 08-02-2023 Consent for Procedure/Surgery [id number]#1.00TIFF Normal [facility] Facesheeton 08-01-2023 Facesheet [id number] Chelsea Elliott [facility] Ambulatory Visit Summaryon 0 07-31-2023 Ambulatory [...] us for your care. Normal [facility] MG MAMM SCREEN 3D ALLEN CADon 05-14-2022 MG MAMM SCREEN 3D ALLEN CAD Patient: ILANA MOORE Exam Date: 05/14/2022 : 1950 Gender:F Ordering : DR VELMA MULLER . Admission #: [id number] Family : Order #: [id number] CLICK HERE TO VIEW EXAM RADIOLOGY REPORT [...] liver cancer at age 66. LOCATION: [facility] BREAST COMPOSITION: Scattered areas fibroglandular density. [...] M.D. on 05/16/2022 at 13:19 Normal [facility] INSULINon 02-08-2022 Insulin 6.6 uIU/mL Normal 2.6-24.9 [facility] Comment on above: Performed By: #### C BC #### [facility] [address] [place] [address] Dr. Lupe Evangelista CBC AUTO DIFFon 02-07-2022 BASO # 0.1 103/ul Normal 0.0-0.1 [facility] Comment on above: Performed By: #### C BC #### [facility] [address] [place] [address] Dr. Lupe Evangelista Basophils/100 WBC (Bld) 0.7 % Normal 0.2-2.0 [facility] Comment on above: Performed By: #### C BC #### [facility] [address] [place] [address] Dr. Lupe Evangelista EO # 0.4 103/ul Normal 0.0-0.7 [facility] Comment on above: Performed By: #### C BC #### [facility] [address] [place] [address] Dr. Lupe Evangelista Eosinophils/100 WBC (Bld) 5.4 % Normal 0.9-7.0 [facility] Comment on above: Performed By: #### C BC #### [facility] [address] [place] [address] Dr. Lupe Evangelista Erythrocyte distribution width (RBC) [Ratio] 15.9 % Critically high 11.0-15.0 [facility] Comment on above: Performed By: #### C BC #### [facility] [address] [place] [address] Dr. Lupe Evangelista Hematocrit (Bld) [Volume fraction] 39.8 % Normal 36.0-48.0 [facility] Comment on above: Performed By: #### C BC #### [facility] [address] [place] [address] Dr. Lupe Evangelista Hemoglobin (Bld) [Mass/Vol] 11.6 g/dL Critically low 12.0-16.0 [facility] Comment on above: Performed By: #### C BC #### [facility] [address] [address] [address] Lupe Evangelista IG # 0.02 10e3/ul Normal 0.00-0.03 [facility] Comment on above: Performed By: #### C BC #### [facility] [address] [address] [address] Lupe Evangelista IG % 0.2 % Normal 0.0-0.5 [facility] Comment on above: Performed By: #### C BC #### [facility] [address] [place] [address] Dr. Lupe Evangelista LYMPH # 2.9 103/ul Normal 1.2-3.8 [facility] Comment on above: Performed By: #### C BC #### [facility] [address] [place] [address] Dr. Lupe Evangelista Lymphocytes/100 WBC (Bld) 35.2 % Normal 20.5-60.0 [facility] Comment on above: Performed By: #### C BC #### [facility] [address] [place] [address] Dr. Lupe Evangelista MANUAL DIFF REQ NO Normal [facility] Comment on above: Performed By: #### C BC #### [facility] [address] [place] [address] Dr. Lupe Evangelista MCH (RBC) [Entitic mass] 23.4 pg Critically low 26.7-34.0 [facility] Comment on above: Performed By: #### C BC #### [facility] [address] [place] [address] Dr. Lupe Evangelista MCHC (RBC) [Mass/Vol] 29.1 g/dL Critically low 29.9-35.2 [facility] Comment on above: Performed By: #### C BC #### [facility] [address] [place] [address] Dr. Lupe Evangelista MCV (RBC) [Entitic vol] 80.4 fL Critically low 81.0-99.0 [facility] Comment on above: Performed By: #### C BC #### [facility] [address] [place] [address] Dr. Lupe Evangelista MONO # 0.8 103/ul Normal 0.3-0.8 [facility] Comment on above: Performed By: #### C BC #### [facility] [address] [place] [address] Dr. Lupe Evangelista Monocytes/100 WBC (Bld) 9.8 % Normal 1.7-12.0 [facility] Comment on above: Performed By: #### C BC #### [facility] [address] [place] [address] Dr. Lupe Evangelista NEUT # 4.0 103/ul Normal 1.4-6.5 [facility] Comment on above: Performed By: #### C BC #### [facility] [address] [place] [address] Dr. Lupe Evangelista Neutrophils/100 WBC (Bld) 48.7 % Normal 43.0-75.0 [facility] Comment on above: Performed By: #### C BC #### [facility] [address] [place] [address] Dr. Lupe Evangelista Platelet mean volume (Bld) [Entitic vol] 11.0 fL Normal 9.5-13.5 [facility] Comment on above: Performed By: #### C BC #### [facility] [address] [place] [address] Dr. Lupe Evangelista PLT 341 103/ul Normal 150-450 [facility] Comment on above: Performed By: #### C BC #### [facility] [address] [place] [address] Dr. Lupe Evangelista RBC 4.95 106/ul Normal 4.20-5.40 [facility] Comment on above: Performed By: #### C BC #### [facility] [address] [place] [address] Dr. Lupe Evangelista WBC 8.2 103/ul Normal 4.0-11.0 [facility] Comment on above: Performed By: #### C BC #### [facility] [address] [place] [address] Dr. Lupe Evangelista FREE THYROXINE INDEX T7on FTI 1.98 Normal 1.30-4.50 [facility] Comment on above: Performed By: #### C BC #### [facility] [address] [address] [address] Lupe Evangelista T3U 31.0 % Normal 30.0-39.0 [facility] Comment on above: Performed By: #### C BC #### [facility] [address] [address] [address] Lupe Evangelista T4 [Mass/Vol] 6.40 ug/dL Normal 4.80-13.90 [facility] Comment on above: Performed By: #### C BC #### [facility] [address] [place] [address] Dr. Lupe Evangelista GLYCOHEMOGLOBIN A1Con 2021 ADA RECOMMENDATION SEE BELOW Normal [facility] Comment on above: Result Comment: ADA RECOMMENDED LIMIT 4.0 - 6.0 ADA THERAPEUTIC TARGET < 7.0 ACTION SUGGESTED > 7.0 Performed By: #### C BC #### [facility] [address] [place] [address] Dr. Lupe Evangelista Glucose [Mass/Vol] 128 mg/dL Normal [facility] Comment on above: Performed By: #### C BC #### [facility] [address] [place] [address] Dr. Lupe Evangelista HbA1c (Bld) [Mass fraction] 6.1 % Normal 4.5-6.2 [facility] Comment on above: Performed By: #### C BC #### [facility] [address] [place] [address] Dr. Lupe Evangelista IRONon 02-07-2022 Iron [Mass/Vol] 44.0 ug/dL Critically low 50.0-170.0 [facility] Comment on above: Performed By: #### I DINO JACOBO #### [facility] [address] [place] [address] Dr. Lupe Evangelista LIPID PROFILEon 02-07-2022 CHOL-HDL RATIO NORM SEE BELOW Normal [facility] Comment on above: Result Comment: 3.3 - 4.4 LOW RISK 4.4 - 7.1 AVERAGE RISK 7.1 - 11.0 MODERATE RISK >11.0 HIGH RISK Performed By: #### C BC #### [facility] [address] [place] [address] Dr. Lupe Evangelista Cholesterol [Mass/Vol] 217 mg/dL Critically high <=200 [facility] Comment on above: Performed By: #### C BC #### [facility] [address] [place] [address] Dr. Lupe Evangelista Cholesterol in HDL [Mass/Vol] 60 mg/dL Normal 40-60 [facility] Comment on above: Performed By: #### C BC #### [facility] [address] [place] [address] Dr. Lupe Evangelista Cholesterol in LDL [Mass/Vol] 136.0 mg/dL Normal [facility] Comment on above: Performed By: #### C BC #### [facility] [address] [place] [address] Dr. Lupe Evangelista Cholesterol.total/C holesterol in HDL [Mass ratio] 3.6 {ratio} Normal [facility] Comment on above: Performed By: #### C BC #### [facility] [address] [place] [address] Dr. Lupe Evangelista HDL NORMAL > or = 60 mg/dl - LO W CARDIOVASCULAR RISK <40 mg/dl - HIGH CARDIOVASCULAR RISK Normal [facility] Comment on above: Performed By: #### C BC #### [facility] [address] [place] [address] Dr. Lupe Evangelista LDL CALC NORMAL SEE BELOW Normal [facility] Comment on above: Result Comment: <100 mg/dl OPTIMAL 100 - 129 mg/dl NEAR OR ABOVE OPTIMAL 130 - 159 mg/dl BORDERLINE HIGH 160 - 189 mg/dl HIGH >190 mg/dl VERY HIGH Performed By: #### C BC #### [facility] [address] [place] [address] Dr. Lupe Evangelista Triglyceride [Mass/Vol] 105 mg/dL Normal <=150 [facility] Comment on above: Performed By: #### C BC #### [facility] [address] [address] [address] Lupe Evangelista VLDL CALC 21.0 mg/dL Normal [facility] Comment on above: Performed By: #### C BC #### [facility] [address] [place] [address] Dr. Lupe Evangelista PROF 14(COMP METB)on 022 Albumin [Mass/Vol] 3.7 g/dL Normal 3.4-5.0 [facility] Comment on above: Performed By: #### C MP, LIPID, TSH, T7 #### [facility] [address] [place] [address] Dr. Lupe Evangelista Albumin/Globulin [Mass ratio] 1.0 {ratio} Normal [facility] Comment on above: Performed By: #### C MP, LIPID, TSH, T7 #### [facility] [address] [place] [address] Dr. Lupe Evangelista ALP [Catalytic activity/Vol] 86 U/L Normal 46-116 [facility] Comment on above: Performed By: #### C MP, LIPID, TSH, T7 #### [facility] [address] [place] [address] Dr. Lupe Evangelista ALT [Catalytic activity/Vol] 16 U/L Normal 14-59 [facility] Comment on above: Performed By: #### C MP, LIPID, TSH, T7 #### [facility] [address] [place] [address] Dr. Lupe Evangelista Anion gap [Moles/Vol] 7.0 mmol/L Normal [facility] Comment on above: Performed By: #### C MP, LIPID, TSH, T7 #### [facility] [address] [place] [address] Dr. Lupe Evangelista AST [Catalytic activity/Vol] 14 U/L Critically low 15-37 [facility] Comment on above: Performed By: #### C MP, LIPID, TSH, T7 #### [facility] [address] [place] [address] Dr. Lupe Evangelista Bilirubin [Mass/Vol] 0.4 mg/dL Normal 0.2-1.0 [facility] Comment on above: Performed By: #### C MP, LIPID, TSH, T7 #### [facility] [address] [address] [address] Lupe Evangelista Calcium [Mass/Vol] 8.9 mg/dL Normal 8.5-10.1 [facility] Comment on above: Performed By: #### C MP, LIPID, TSH, T7 #### [facility] [address] [place] [address] Dr. Lupe Evangelista Chloride [Moles/Vol] 102 mmol/L Normal 98-107 [facility] Comment on above: Performed By: #### C MP, LIPID, TSH, T7 #### [facility] [address] [place] [address] Dr. Lupe Evangelista CO2 [Moles/Vol] 34.3 mmol/L Critically high 21.0-32.0 [facility] Comment on above: Performed By: #### C MP, LIPID, TSH, T7 #### [facility] [address] [place] [address] Dr. Lupe Evangelista Creatinine [Mass/Vol] 0.73 mg/dL Normal 0.55-1.02 [facility] Comment on above: Performed By: #### C MP, LIPID, TSH, T7 #### [facility] [address] [place] [address] Dr. Lupe Evangelista EGFR-AF GREEK >60 Normal >=60 [facility] Comment on above: Performed By: #### C MP, LIPID, TSH, T7 #### [facility] [address] [place] [address] Dr. Lupe Evangelista EGFR-NON AF GREEK >60 Normal >=60 [facility] Comment on above: Performed By: #### C MP, LIPID, TSH, T7 #### [facility] [address] [place] [address] Dr. Lupe Evangelista Globulin (S) [Mass/Vol] 3.8 g/dL Normal [facility] Comment on above: Performed By: #### C MP, LIPID, TSH, T7 #### [facility] [address] [place] [address] Dr. Lupe Evangelista Glucose [Mass/Vol] 111 mg/dL Critically high 74-106 [facility] Comment on above: Performed By: #### C MP, LIPID, TSH, T7 #### [facility] [address] [address] [address] Lupe Evangelista Potassium [Moles/Vol] 4.3 mmol/L Normal 3.5-5.1 [facility] Comment on above: Performed By: #### C MP, LIPID, TSH, T7 #### [facility] [address] [address] [address] Lupe Evangelista Protein [Mass/Vol] 7.5 g/dL Normal 6.4-8.2 [facility] Comment on above: Performed By: #### C MP, LIPID, TSH, T7 #### [facility] [address] [place] [address] Dr. Lupe Evangelista Sodium [Moles/Vol] 139 mmol/L Normal 136-145 [facility] Comment on above: Performed By: #### C MP, LIPID, TSH, T7 #### [facility] [address] [place] [address] Dr. Lupe Evangelista Urea nitrogen [Mass/Vol] 11.0 mg/dL Normal 7.0-18.0 [facility] Comment on above: Performed By: #### C MP, LIPID, TSH, T7 #### [facility] [address] [place] [address] Dr. Lupe Evangelista Urea nitrogen/Creatinine [Mass ratio] 15.1 mg/mg Normal [facility] Comment on above: Performed By: #### C MP, LIPID, TSH, T7 #### [facility] [address] [place] [address] Dr. Lupe Evangelista TSHon 02-07-2022 TSH 2.224 uIU/mL Normal 0.358-3.740 [facility] Comment on above: Performed By: #### C BC #### [facility] [address] [place] [address] Dr. Lupe Evangelista VITAMIN D 25 OHon 02-07-2022 VIT D 25-OH 17.8 ng/mL Normal [facility] Comment on above: Performed By: #### I DONNELL VITAD #### [facility] [address] [address] [address] Lupe Evangelista VIT D RANGES SEE BELOW Normal [facility] Comment on above: Result Comment: <20 ng/mL Vit D deficient 20 - <30 ng/mL Vit D insufficient 30 - 100 ng/mL Vit D sufficient >100 ng/mL Potential Toxicity Performed By: #### I DONNELL VITAD #### [facility] [address] [address] [address] Lupe Evangelista XR CHEST 2 Von [...] ARIANNE BRAGA Date: 2022-02-07 17:56 Normal [facility] CBC AUTO DIFFon 12-01-2021 BASO # 0.1 103/ul Normal 0.0-0.1 [facility] Comment on above: Performed By: #### C BC #### [facility] [address] [place] [address] Dr. Lupe Evangelista Basophils/100 WBC (Bld) 0.8 % Normal 0.2-2.0 [facility] Comment on above: Performed By: #### C BC #### [facility] [address] [place] [address] Dr. Lupe Evangelista EO # 0.4 103/ul Normal 0.0-0.7 [facility] Comment on above: Performed By: #### C BC #### [facility] [address] [place] [address] Dr. Lupe Evangelista Eosinophils/100 WBC (Bld) 5.4 % Normal 0.9-7.0 [facility] Comment on above: Performed By: #### C BC #### [facility] [address] [place] [address] Dr. Lupe Evangelista Erythrocyte distribution width (RBC) [Ratio] 16.3 % Critically high 11.0-15.0 [facility] Comment on above: Performed By: #### C BC #### [facility] [address] [place] [address] Dr. Lupe Evangelista Hematocrit (Bld) [Volume fraction] 36.0 % Normal 36.0-48.0 [facility] Comment on above: Performed By: #### C BC #### [facility] [address] [place] [address] Dr. Lupe Evangelista Hemoglobin (Bld) [Mass/Vol] 10.4 g/dL Critically low 12.0-16.0 [facility] Comment on above: Performed By: #### C BC #### [facility] [address] [place] [address] Dr. Lupe Evangelista IG # 0.04 10e3/ul Critically high 0.00-0.03 [facility] Comment on above: Performed By: #### C BC #### [facility] [address] [place] [address] Dr. Lupe Evangelista IG % 0.6 % Critically high 0.0-0.5 [facility] Comment on above: Performed By: #### C BC #### [facility] [address] [place] [address] Dr. Lupe Evangelista LYMPH # 1.9 103/ul Normal 1.2-3.8 [facility] Comment on above: Performed By: #### C BC #### [facility] [address] [place] [address] Dr. Lupe Evangelista Lymphocytes/100 WBC (Bld) 29.1 % Normal 20.5-60.0 [facility] Comment on above: Performed By: #### C BC #### [facility] [address] [place] [address] Dr. Lupe Evangelista MANUAL DIFF REQ NO Normal [facility] Comment on above: Performed By: #### C BC #### [facility] [address] [place] [address] Dr. Lupe Evangelista MCH (RBC) [Entitic mass] 24.9 pg Critically low 26.7-34.0 [facility] Comment on above: Performed By: #### C BC #### [facility] [address] [place] [address] Dr. Lupe Evangelista MCHC (RBC) [Mass/Vol] 28.9 g/dL Critically low 29.9-35.2 [facility] Comment on above: Performed By: #### C BC #### [facility] [address] [place] [address] Dr. Lupe Evangelista MCV (RBC) [Entitic vol] 86.1 fL Normal 81.0-99.0 [facility] Comment on above: Performed By: #### C BC #### [facility] [address] [place] [address] Dr. Lupe Evangelista MONO # 0.7 103/ul Normal 0.3-0.8 [facility] Comment on above: Performed By: #### C BC #### [facility] [address] [place] [address] Dr. Lupe Evangelista Monocytes/100 WBC (Bld) 10.7 % Normal 1.7-12.0 [facility] Comment on above: Performed By: #### C BC #### [facility] [address] [place] [address] Dr. Lupe Evangelista NEUT # 3.4 103/ul Normal 1.4-6.5 [facility] Comment on above: Performed By: #### C BC #### [facility] [address] [place] [address] Dr. Lupe Evangelista Neutrophils/100 WBC (Bld) 53.4 % Normal 43.0-75.0 [facility] Comment on above: Performed By: #### C BC #### [facility] [address] [place] [address] Dr. Lupe Evangelista Platelet mean volume (Bld) [Entitic vol] 10.6 fL Normal 9.5-13.5 [facility] Comment on above: Performed By: #### C BC #### [facility] [address] [address] [address] Lupe Evangelista PLT 320 103/ul Normal 150-450 [facility] Comment on above: Performed By: #### C BC #### [facility] [address] [place] [address] Dr. Lupe Evangelista RBC 4.18 106/ul Critically low 4.20-5.40 [facility] Comment on above: Performed By: #### C BC #### [facility] [address] [place] [address] Dr. Lupe Evangelista WBC 6.4 103/ul Normal 4.0-11.0 [facility] Comment on above: Performed By: #### C BC #### [facility] [address] [place] [address] Dr. Lupe Evangelista CRPon 12-01-2021 CRP 1.6 mg/dL Critically high <=1.0 [facility] Comment on above: Performed By: #### C RP #### [facility] [address] [place] [address] Dr. Lupe Evangelista CBC AUTO DIFFon 11-29-2021 BASO # 0.1 103/ul Normal 0.0-0.1 [facility] Comment on above: Performed By: #### C BC #### [facility] [address] [place] [address] Dr. Lupe Evangelista Basophils/100 WBC (Bld) 0.6 % Normal 0.2-2.0 [facility] Comment on above: Performed By: #### C BC #### [facility] [address] [place] [address] Dr. Lupe Evangelista EO # 0.4 103/ul Normal 0.0-0.7 [facility] Comment on above: Performed By: #### C BC #### [facility] [address] [place] [address] Dr. Lupe Evangelista Eosinophils/100 WBC (Bld) 5.4 % Normal 0.9-7.0 [facility] Comment on above: Performed By: #### C BC #### [facility] [address] [place] [address] Dr. Lupe Evangelista Erythrocyte distribution width (RBC) [Ratio] 16.5 % Critically high 11.0-15.0 [facility] Comment on above: Performed By: #### C BC #### [facility] [address] [place] [address] Dr. Lupe Evangelista Hematocrit (Bld) [Volume fraction] 36.1 % Normal 36.0-48.0 [facility] Comment on above: Performed By: #### C BC #### [facility] [address] [place] [address] Dr. Lupe Evangelista Hemoglobin (Bld) [Mass/Vol] 10.6 g/dL Critically low 12.0-16.0 [facility] Comment on above: Performed By: #### C BC #### [facility] [address] [place] [address] Dr. Lupe Evangelista IG # 0.03 10e3/ul Normal 0.00-0.03 [facility] Comment on above: Performed By: #### C BC #### [facility] [address] [place] [address] Dr. Lupe Evangelista IG % 0.4 % Normal 0.0-0.5 [facility] Comment on above: Performed By: #### C BC #### [facility] [address] [place] [address] Dr. Lupe Evangelista LYMPH # 2.3 103/ul Normal 1.2-3.8 [facility] Comment on above: Performed By: #### C BC #### [facility] [address] [place] [address] Dr. Lupe Evangelista Lymphocytes/100 WBC (Bld) 29.9 % Normal 20.5-60.0 [facility] Comment on above: Performed By: #### C BC #### [facility] [address] [place] [address] Dr. Lupe Evangelista MANUAL DIFF REQ NO Normal [facility] Comment on above: Performed By: #### C BC #### [facility] [address] [place] [address] Dr. Lupe Evangelista MCH (RBC) [Entitic mass] 25.4 pg Critically low 26.7-34.0 [facility] Comment on above: Performed By: #### C BC #### [facility] [address] [place] [address] Dr. Lupe Evangelista MCHC (RBC) [Mass/Vol] 29.4 g/dL Critically low 29.9-35.2 [facility] Comment on above: Performed By: #### C BC #### [facility] [address] [place] [address] Dr. Lupe Evangelista MCV (RBC) [Entitic vol] 86.4 fL Normal 81.0-99.0 [facility] Comment on above: Performed By: #### C BC #### [facility] [address] [place] [address] Dr. Lupe Evangelista MONO # 0.9 103/ul Critically high 0.3-0.8 [facility] Comment on above: Performed By: #### C BC #### [facility] [address] [place] [address] Dr. Lupe Evangelista Monocytes/100 WBC (Bld) 10.9 % Normal 1.7-12.0 [facility] Comment on above: Performed By: #### C BC #### [facility] [address] [place] [address] Dr. Lupe Evangelista NEUT # 4.1 103/ul Normal 1.4-6.5 [facility] Comment on above: Performed By: #### C BC #### [facility] [address] [place] [address] Dr. Lupe Evangelista Neutrophils/100 WBC (Bld) 52.8 % Normal 43.0-75.0 [facility] Comment on above: Performed By: #### C BC #### [facility] [address] [place] [address] Dr. Lupe Evangelista Platelet mean volume (Bld) [Entitic vol] 11.2 fL Normal 9.5-13.5 [facility] Comment on above: Performed By: #### C BC #### [facility] [address] [place] [address] Dr. Lupe Evangelista PLT 351 103/ul Normal 150-450 [facility] Comment on above: Performed By: #### C BC #### [facility] [address] [address] [address] Lupe Evangelista RBC 4.18 106/ul Critically low 4.20-5.40 [facility] Comment on above: Performed By: #### C BC #### [facility] [address] [place] [address] Dr. Lupe Evangelista WBC 7.8 103/ul Normal 4.0-11.0 [facility] Comment on above: Performed By: #### C BC #### [facility] [address] [place] [address] Dr. Lupe Evangelista CRPon 11-29-2021 CRP 1.7 mg/dL Critically high <=1.0 [facility] Comment on above: Performed By: #### C RP, CMP #### [facility] [address] [place] [address] Dr. Lupe Evangelista CULTURE BLOODon 11-29-2021 Microscopic examination of blood, culture Culture Observations: NO GROWTH AT 5 DAYS. Normal [facility] Comment on above: Performed By: #### C BC #### [facility] [address] [place] [address] Dr. uLpe Evangelista Microscopic examination of blood, culture Culture Observations: NO GROWTH AT 5 DAYS. Normal [facility] Comment on above: Performed By: #### C BC #### [facility] [address] [place] [address] Dr. Lupe Evangelista PROF 14(COMP METB)on 022 Albumin [Mass/Vol] 3.5 g/dL Normal 3.4-5.0 [facility] Comment on above: Performed By: #### C RP, CMP #### [facility] [address] [place] [address] Dr. Lupe Evangelista Albumin/Globulin [Mass ratio] 0.9 {ratio} Normal [facility] Comment on above: Performed By: #### C RP, CMP #### [facility] [address] [address] [address] Lupe Evangelista ALP [Catalytic activity/Vol] 105 U/L Normal 46-116 [facility] Comment on above: Performed By: #### C RP, CMP #### [facility] [address] [place] [address] Dr. Lupe Evangelista ALT [Catalytic activity/Vol] 15 U/L Normal 14-59 [facility] Comment on above: Performed By: #### C RP, CMP #### [facility] [address] [place] [address] Dr. Lupe Evangelista Anion gap [Moles/Vol] 7.3 mmol/L Normal [facility] Comment on above: Performed By: #### C RP, CMP #### [facility] [address] [place] [address] Dr. Lupe Evangelista AST [Catalytic activity/Vol] 21 U/L Normal 15-37 [facility] Comment on above: Performed By: #### C RP, CMP #### [facility] [address] [place] [address] Dr. Lupe Evangelista Bilirubin [Mass/Vol] 0.4 mg/dL Normal 0.2-1.0 [facility] Comment on above: Performed By: #### C RP, CMP #### [facility] [address] [place] [address] Dr. Lupe Evangelista Calcium [Mass/Vol] 8.5 mg/dL Normal 8.5-10.1 [facility] Comment on above: Performed By: #### C RP, CMP #### [facility] [address] [place] [address] Dr. Lupe Evangelista Chloride [Moles/Vol] 102 mmol/L Normal 98-107 [facility] Comment on above: Performed By: #### C RP, CMP #### [facility] [address] [address] [address] Lupe Evangelista CO2 [Moles/Vol] 31.9 mmol/L Normal 21.0-32.0 [facility] Comment on above: Performed By: #### C RP, CMP #### [facility] [address] [place] [address] Dr. Lupe Evangelista Creatinine [Mass/Vol] 0.76 mg/dL Normal 0.55-1.02 [facility] Comment on above: Performed By: #### C RP, CMP #### [facility] [address] [place] [address] Dr. Lupe Evangelista EGFR-AF GREEK >60 Normal >=60 [facility] Comment on above: Performed By: #### C RP, CMP #### [facility] [address] [place] [address] Dr. Lupe Evangelista EGFR-NON AF GREEK >60 Normal >=60 [facility] Comment on above: Performed By: #### C RP, CMP #### [facility] [address] [place] [address] Dr. Lupe Evangelista Globulin (S) [Mass/Vol] 3.9 g/dL Normal [facility] Comment on above: Performed By: #### C RP, CMP #### [facility] [address] [place] [address] Dr. Lupe Evangelista Glucose [Mass/Vol] 92 mg/dL Normal 74-106 [facility] Comment on above: Performed By: #### C RP, CMP #### [facility] [address] [place] [address] Dr. Lupe Evangelista Potassium [Moles/Vol] 4.2 mmol/L Normal 3.5-5.1 [facility] Comment on above: Performed By: #### C RP, CMP #### [facility] [address] [place] [address] Dr. Lupe Evangelista Protein [Mass/Vol] 7.4 g/dL Normal 6.4-8.2 [facility] Comment on above: Performed By: #### C RP, CMP #### [facility] [address] [place] [address] Dr. Lupe Evangelista Sodium [Moles/Vol] 137 mmol/L Normal 136-145 [facility] Comment on above: Performed By: #### C RP, CMP #### [facility] [address] [address] [address] Lupe Evangelista Urea nitrogen [Mass/Vol] 8.0 mg/dL Normal 7.0-18.0 [facility] Comment on above: Performed By: #### C RP, CMP #### [facility] [address] [address] [address] uLpe Evangelista Urea nitrogen/Creatinine [Mass ratio] 10.5 mg/mg Normal [facility] Comment on above: Performed By: #### C RP, CMP #### [facility] [address] [place] [address] Dr. Lupe Evangelista SED RATE [facility] 2021 SED RATE 27 mm/hr Normal <=30 [facility] Comment on above: Performed By: #### S EDR #### [facility] [address] [place] [address] Dr. Lupe Evangelista XR KNEE RT 4V [...] by: HUNTER LAWRENCE Date: 2021-11-15 21:55 Normal [facility] Vital Signs Date Time Vital Sign Value Performing Clinician [place] 07-31-2023 14:30-0400 Blood Pressure Location Galileo Mcnamara [facility] [place] 07-31-2023 14:30-0400 Diastolic blood pressure 62 mm[Hg] Galileo Mcnamara [facility] 07-31-2023 14:30-0400 Heart rate 68 /min Galileo CAMACHOL [facility] 07-31-2023 14:30-0400 Respiratory rate 16 /min Galileo CAMACHOL [facility] 07-31-2023 14:30-0400 Systolic blood pressure 120 mm[Hg] [facility] En[facility] Encounter Date Encounter Type Care Provider Facility Start: 09-24-2023 End: 09-24-2023 ambulatory Galileo R MELL Facility: [facility] Start: 09-24-2023 End: 09-24-2023 Patient encounter procedure [facility] Start: 09-18-2023 End: 09-18-2023 ambulatory Galileo Cleary [facility] Work Phone: Start: 09-18-2023 End: 09-18-2023 Departed Referred MD Galileo Cleary Work Phone: [facility] [place] [facility] Start: 09-18-2023 End: 09-18-2023 ambulatory Galileo CLEARY Facility:[id number] Start: 07-31-2023 End: 07-31-2023 ambulatory Galileo R NILRenu Facility: [facility] Start: 07-31-2023 End: 07-31-2023 Patient encounter [facility] Start: 07-19-2023 ambulatory Galileo CLEARY Facility:Fabricio Romero [...] Provider Fa cility 12-07-2021 SARS-CoV-2 (COVID-19 ) [id number] Galileo NILL [facility] 07-14-2021 SARS-CoV-2 mRNA (qmjkxlrkfno-atiy-yyglq se) vaccine Galileo NILL [facility] 12-27-2020 SARS-CoV-2 (COVID-19 ) mRNA BNT-162b2 vax Galileo NILL [facility] 05-18-2020 SARS-CoV-2 (COVID-19 ) mRNA BNT-162b2 vax Galileo NILL [facility] Comment on above: Result Comment: 2023: [id number] 04-27-2020 SARS-CoV-2 (COVID-19 ) mRNA BNT-162b2 vax Galileo CLEARY [facility] Comment on above: Result Comment: 2023: [id number] Payers Date Payer Category Payer Self-pay [id number] 1960 Medicare [id number] 1960 Unknown [id number] 1950 Unknown [id number] 1950 Unknown [id number] 1950 Unknown [id number] 1949 Unknown [id number] 1949 Unknown [id number] 1949 Unknown [id number] 1950 Unknown [id number] 1950 Unknown [id number] Unknown Regular Insurance [id number] Unknown [id number] Worker's Compensation [employer] [facility] [id number] Social History Date Type Detail Facility Start: 07-31-2023 Tobacco smoking status Never s moked tobacco (finding) [facility] Tobacco [facility] status [facility]igned At Female [facility] Start: 1950 Sex Assigned At Female [facility] Functional Status Date Assessment Result Facility 07-31-2023 [facility] [place] Clinical Note 07-31-2023 Note Date & Type [...] plan excisional biopsy under local anesthesia at [facility], for definitive diagnosis and treatment; [...] Immunizations Vaccine Date Status Comments SARS-CoV-2 (COVID-19) [id number] 12/07/2021 Recorded SARSCoV2 mRNA(dnzlwcnje-quot-cgfaml) vac 07/14/2021 Recorded SARS-CoV-2 (COVID-19) mRNA BNT-162b2 vax 12/27/2020 Recorded SARS-CoV-2 (COVID-19) mRNA BNT-162b2 vax 05/18/2020 Recorded 2023-07-19: [id number] SARS-CoV-2 (COVID-19) mRNA BNT-162b2 vax 04/27/2020 Recorded 2023-07-19: [id number] [facility] Comment on above: Result Comment: Elec tronically Signed By: MELL MONGE, Galileo Roberts\Date and Time Signed: 07/31/23 15:12 EDT Evaluation + Plan note Note Date & Type Note Facility Evaluation + Plan note No data available for this section [facility] Evaluation note Note Date & Type Note Facility Evaluation note [facility] Discharge instructions Note Date & Type Note Facility Hospital Discharge instructions No data available for this section [facility] Progress note Note Date & Type Note Facility Progress note No data available for this section [facility] Summary Purpose Family History No [...] CREATED AUTHOR AUTHOR'S ORGANIZ ATION 09/26/2023 Earl Calhoun [facility] DATE CREATED AUTHOR AUTHOR'S ORGANIZ ATION 03/18/2024 [facility] Patient Care team informatio n [...] BE BASED ON THE PRIMARY CLINICAL RECORDS. [employer] provides no warranty or guarantee of the accuracy or completeness of information in this document.
--- NOTE | 2025-01-03 17:20 | ECG_ITS ---
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 Measurements Intervals Alexander Rate: 85 P: 50 ME: 132 QRS: 42 QRSD: 82 T: 60 QT: 348 QTc: 390 Interpretive Statements 1100 Sinus rhythm 9110 normal ECG Compared to ECG 01/03/2025 13:20:11 Atrial fibrillation no longer present Electronically Signed On 01-03-2025 19:37:46 EDT by CARRIE BRADY M.D.
--- NOTE | 2025-01-03 17:24 | ECG_ITS ---
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 Measurements Intervals Theodore Rate: 104 P: -88943 OR: -64970 QRS: 56 QRSD: 80 T: 56 QT: 316 QTc: 376 Interpretive Statements 34997 Atrial fibrillation with rapid ventricular response 9140 abnormal rhythm ECG Compared to ECG 01/03/2025 12:53:03 ST (T wave) deviation no longer present Electronically Signed On 01-03-2025 19:37:13 EDT by CARRIE BRADY M.D.
[2025-01-03] MEDS: POTASSIUM CHLORIDE 10 MEQ ER TABLET 20 MEQ PO (18:00)
[2025-01-03] MEDS: RIVAROXABAN 10 MG TABLET 20 MG PO (18:00)
[2025-01-03] MEDS: METOPROLOL TARTRATE 25 MG TABLET PO (18:00)
[2025-01-04] VITALS (22 sets, daily range): BP systolic 126–151; BP diastolic 61–73; PULSE 66–90; TEMP 36.6–38.2; O2SAT 94–98
[2025-01-04 06:02] LABS: Hematocrit 40.3 % (36.0-48.0); Hemoglobin 12.7 g/dL (12.0-16.0); Immature Granulocytes Abs Auto 0.22 10^3/uL (0.00-0.03); Immature Granulocytes Pct Auto 1.1 % (0.0-0.5); Lymphocytes Absolute Auto 2.0 10^3/uL (1.2-3.8); Mean Corpuscular HGB Conc 31.5 g/dL (29.9-35.2); Mean Corpuscular Hemoglobin 26.1 pg (26.7-34.0); Mean Corpuscular Volume 82.9 fL (81.0-99.0); Platelet Count 307 10^3/uL (150-450); Red Blood Count 4.86 10^6/uL (4.20-5.40); White Blood Count 20.5 10^3/uL (4.0-11.0)
[2025-01-04] MEDS: ACETAMINOPHEN 325 MG TABLET 650 MG PO ×3 (06:15→18:05)
[2025-01-04 06:21] LABS: Alanine Aminotransferase 18 U/L (14-59); Albumin Globulin Ratio 0.5; Albumin Level 2.5 g/dL (3.4-5.0); Alkaline Phosphatase 81 U/L (46-116); Anion Gap 15.8; Aspartate Amino Transferase 15 U/L (15-37); Blood Urea Nitrogen 31.0 mg/dL (7.0-18.0); Calcium 8.8 mg/dL (8.5-10.1); Carbon Dioxide 25.3 mmol/L (21.0-32.0); Chloride 98 mmol/L (98-107); Cholesterol 182 mg/dL (<=200); Estimated GFR (African America >60 (>=60 mL/min/1.73m^2); Estimated GFR (Non-African Ame >60 (>=60 mL/min/1.73m^2); Globulin 5.0 g/dL; Glucose 112 mg/dL (74-106); HDL Cholesterol 53 mg/dL (40-60); Magnesium 2.2 mg/dL (1.8-2.4); Potassium 4.1 mmol/L (3.5-5.1); Sodium 135 mmol/L (136-145); Total Protein 7.5 g/dL (6.4-8.2); Triglycerides 102 mg/dL (<=150); VLDL CHOLESTEROL 20.4 mg/dL
--- NOTE | 2025-01-04 07:00 | CA_ITS ---
Patient Name: DARRYL ZAYAS MR#: [id number] : 1950 Exam Date: 01/04/2025 Ordering Doctor: GUERITA ANGUIANO ECHOCARDIOGRAM REPORT PROCEDURE: CA ECHO DOPPLER COMPLETE INDICATIONS: A fib COMPARISON: None. DESCRIPTION: COMPLETE ECHOCARDIOGRAM Real-time transthoracic echocardiography with 2D, M-mode, spectral and color flow Doppler performed. QUALITY: Technical quality was adequate. LEFT VENTRICLE: Normal chamber size. Mild concentric left ventricular hypertrophy. Global left ventricular systolic function is normal. LV EF: Estimated left ventricular ejection fraction is 60%. DIASTOLIC: Diastolic function is indeterminate. ATRIAL SEPTUM: LEFT ATRIUM: Normal chamber size. RIGHT ATRIUM: Normal chamber size. RIGHT VENTRICLE: Normal chamber size. Normal right ventricular systolic function. TRICUSPID VALVE: Normal mobility and thickness. No stenosis with mild regurgitation. Mild pulmonary hypertension. RVSP 37 mmHg. MITRAL VALVE: Mildly thickened with normal mobility. No evidence of mitral valve stenosis. Mild mitral annular calcification. Trivial mitral regurgitation. AORTIC VALVE: Normal trileaflet appearance. Thickened aortic valve. Normal leaflet mobility. No evidence of aortic valve stenosis. No aortic regurgitation. AORTIC ROOT: Normal diameter and appearance, measuring 2.8 cm. PULMONIC VALVE: Normal thickness and mobility. No stenosis. Trivial regurgitation. PERICARDIUM: No evidence of pericardial effusion. IVC: Collapses with inspiration. Normal size. PLEURA: CONCLUSION: 1. Mild concentric left ventricular hypertrophy with normal systolic function. Estimated LVEF is 60%. 2. Normal right ventricular size and systolic function. 3. Mild tricuspid regurgitation. 4. Mildly elevated right-sided pressures. Adult Echocardiography Procedure Report Left Ventricle LVEDD (3.7 - 5.6 cm): 4.05 cm LVESD (2.2 - 4.0 cm): 2.56 cm LVIVS thickness (0.6 - 1.2 cm): 1.28 cm LVPW thickness (0.5 - 1.0 cm): 1.06 cm e': 0.06 m/s E - e': 8.88 LVOT Max Gradient: 4.54 mm[Hg] LVOT Area (cm2): 1.07 m/s Peak Velocity (LVOT): 1.07 m/s Mean Velocity (LVOT): 0.69 m/s LVOT Diameter 1.74 cm Left Ventricular Ejection Fraction: 60 % Left Atrium LA Volume Index (2D A2C): 27.80 ml/m2 Left Atrium Systolic Dimension: 2.75 cm Mitral Valve MV E to A Ratio: 0.80 Mitral Valve A-Wave Peak Velocity: 0.68 m/s Mitral Valve E-Wave Peak Velocity: 0.54 m/s Right Ventricle RV Internal Diastolic Dimension: 3.62 cm Aorta AO Root Diam: 2.83 cm Aortic Valve AoV Area (Peak Brandt): 1.82 cm2, 1.82 cm2 AoV Area (VTI): 2.17 cm2, 2.17 cm2 Peak Velocity(Antegrade Flow): 1.39 m/s Peak Gradient(Antegrade Flow): 7.70 mm[Hg] Mean Velocity(Antegrade Flow): 0.88 m/s Mean Gradient(Antegrade Flow): 3.79 mm[Hg] Velocity Time Integral: 23.34 cm Tricuspid Valve Peak Velocity (Regurgitant Flow): 2.93 m/s, 2.84 m/s Pulmonic Valve Peak Velocity: 0.88 m/s Peak Gradient: 2.79 mm[Hg], 3.42 mm[Hg] Right Atrium Right Atrium Systolic Pressure: 36.29 ml, 36.29 ml Dictated by: Cristóbal López M.D. on 01/04/2025 at 16:03 Approved by: Cristóbal López M.D. on 01/04/2025 at 16:06
--- NOTE | 2025-01-04 08:00 | ECG_ITS ---
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 Measurements Intervals [place] Rate: 85 P: 47 OR: 132 QRS: 22 QRSD: 84 T: 54 QT: 344 QTc: 387 Interpretive Statements 1100 Sinus rhythm 9110 normal ECG Compared to ECG 01/03/2025 17:02:01 No significant changes Electronically Signed On 01-04-2025 6:10:33 EDT by CARRIE BRADY M.D.
[2025-01-04] MEDS: METOPROLOL TARTRATE 25 MG TABLET PO ×2 (08:28→21:45)
--- NOTE | 2025-01-04 10:34 | SWNOTE1 ---
Important Message from Medicare reviewed and discussed with patient's . Pt's verbalized understanding and signed the form. Original given to patient's and copy placed in patient?s chart.
--- NOTE | 2025-01-04 10:36 | SWNOTE1 ---
SW met with pt's in room. Pt was sleeping during conversation. Pt's is hard of hearing. Pt does have a walker and cane at home that she does use if needed. He voiced she has been a little weaker this past week, but no fall, per . Pt does not have any services coming in at this time. At this time pt's is waiting to speak with physician. SW to follow as needed during hospital stay.
--- NOTE | 2025-01-04 11:00 | CM.NOTE ---
Rounds made with Dr. Reinoso, pt will have cardiac echo and cardiology consult today. Possible discharge to home today, PT and OT will evaluate pt for discharge planning. Pt will need to f/u with PCP and cardiology.
[2025-01-04 12:48] LABS: SARS-CoV-2 Ag NEGATIVE (NEGATIVE)
[2025-01-04 12:50] LABS: Thyroid Stimulating Hormone 1.176 uIU/mL (0.358-3.740)
--- NOTE | 2025-01-04 12:54 | P.HP_ITS ---
HPI H&P: HPI History of Present Illness Chief complaint: Afib RVR Narrative: Patient is a 74 year old female with medical hx as listed in PMH presented to ER 01/03/25 due to generalized weakness and fatigue noticed by her . Patient denies nausea, vomiting, diarrhea or constipation. denies cough, fevers or chills at home. She does have weight loss due to poor oral intake as reported per her . denies any chest pain or palpitations. She presented here with Afib with RVR as noted on arrival here. She was given cardizem bolus followed by cardizem drip 5 mg/hr. HR was coming down and rate was improving. Decision was made to admit her for further evaluation and management. During hospital course, patient remained hemodynamically stable, converted to normal sinus rhythm, off Cardizem drip today, has been started on metoprolol by my colleague hospitalist. Also been started on Xarelto by my colleague hospitalist for AC. She seems AOx3 today, at bedside, reports she was tired at home more than usual. she denies any active complaints today. Quality: Safe Use of Opioids Is the patient undergoing opioid medication assisted treatment that includes methadone, buprenorphine, and/or naltrexone: No Opioid HPI Opioid Management Most Recent Pain and Opioid Data: Last Pain Scale 8 Today, 11:59 Last Pain Intensity 8 03/14/24, 09:47 Last Pain Assessment 01/03/25, 18:00 Last MAR Pain Assessment Today, 06:15 Last ORT Total Score 0 01/03/25, 16:44 Last ORT Risk Category Low Risk 01/03/25, 16:44 Review of Systems ROS Status of ROS 10 or more systems reviewed and unremark able except as noted in history and below [facility] Medical History Weakness ?R53.1 - Weakness (ICD-10) Edema ?R60.9 - Edema, unspecified (ICD-10) CHF (congestive heart failure) ?I50.9 - Heart failure, unspecified (ICD-10) Edema, peripheral ?R60.0 - Localized edema (ICD-10) Acute renal failure ?N17.9 - Acute kidney failure, unspecified (ICD-10) Vomiting ?R11.10 - Vomiting, unspecified (ICD-10) 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) Elevated brain natriuretic peptide (BNP) level ?R79.89 - Other specified abnormal findings of blood chemistry (ICD-10) WHITNEY (acute kidney injury) ?N17.9 - Acute kidney failure, unspecified (ICD-10) Vitamin D deficiency ?E55.9 - Vitamin D deficiency, unspecified (ICD-10) Vitamin B deficiency ?E53.9 - Vitamin B deficiency, unspecified (ICD-10) Osteoporosis ?M81.0 - Age-related osteoporosis without current pathological fracture (ICD- 10) Benign neoplasm of ear ?D23.20 - Other benign neoplasm of skin of unspecified ear and external auricular canal (ICD-10) Insomnia ?G47.00 - Insomnia, unspecified (ICD-10) Gout ?M10.9 - Gout, unspecified (ICD-10) GERD (gastroesophageal reflux disease) ?K21.9 - Gastro-esophageal reflux disease without esophagitis (ICD-10) Eczema ?L30.9 - Dermatitis, unspecified (ICD-10) COPD (chronic obstructive pulmonary disease) ?J44.9 - Chronic obstructive pulmonary disease, unspecified (ICD-10) Asthma ?J45.909 - Unspecified asthma, uncomplicated (ICD-10) Surgical History Hx of cardiac cath ?Z98.890 - Other specified postprocedural states (ICD-10) History of bronchoscopy ?Z98.890 - Other specified postprocedural states (ICD-10) 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.2 - Acquired absence of lung [part of] (ICD-10) History of repair of hiatal hernia ?Z98.890 - Other specified postprocedural states (ICD-10) ?Z87.19 - Personal history of other diseases of the digestive system (ICD-10) History of lumpectomy of left breast ?Z98.890 - Other specified postprocedural states (ICD-10) History of hip surgery ?Z98.890 - Other specified postprocedural states (ICD-10) Hx of cholecystectomy ?Z90.49 - Acquired absence of other specified parts of digestive tract (ICD- 10) H/O cataract extraction ?Z98.49 - Cataract extraction status, unspecified eye (ICD-10) History of arthroplasty of right hip ?Z96.641 - Presence of right artificial hip joint (ICD-10) History of laparoscopic appendectomy ?Z90.49 - Acquired absence of other specified parts of digestive tract (ICD- 10) Family History Other Breast cancer Dementia Heart disease Stroke Social History Within the past year, how often did you have a drink containing alcohol: never Within the past year, how often did you have six or more drinks on one occasion: never Score interpretation: A score less than 3 is consistent with normal alcohol consumption. Smoking status: Never smoker Non-prescribed substance use: denies use Previous occupational history: [employer], [place] Highest level of school completed/degree received: high school graduate Little interest or pleasure in doing things: not at all Feeling down, depressed, or hopeless: not at all Meds Home Medications and Allergies Home Medications ?Medication ?Instructions ?Recorded ?Confirmed ?Type fluticasone furoate 200 1 inh inhalation DAILY 08/1201/03/25 History mcg-vilanterol 25 mcg/dose inhalation powder (Breo Ellipta) albuterol sulfate 2.5 mg/3 mL 2.5 mg inhalation Q6H NC N 09/17/23 01/03/25 History (0.083 %) solution for nebulization shortness of breat h or wheezing calcitonin (salmon) 200 1 spray intranasal DAILY 01/03/25 History unit/actuation nasal spray albuterol sulfate 90 mcg/actuation 2 inh inhalation Q4 H PRN shortness 02/28/24 01/03/25 History aerosol inhaler (Ventolin HFA) of breath or wheezing voriconazole 200 mg tablet 200 mg PO Q12H 01/03/2503/18 History colchicine 0.6 mg capsule 0.6 mg PO .QD 01/04/2501/04 History Allergies Allergy/AdvReac Type Severity Reaction Status Date / Time aspirin AdvReac Severe shortness Verified 01/03/25 12:57 of breath codeine AdvReac Severe shortness Verified 01/03/25 12:57 of breath morphine AdvReac Severe shortness Verified 01/03/25 12:57 of breath propoxyphene (From Darvon) AdvReac Mild shortness Verified 01/03/25 12:57 of breath Exam Narrative Exam Narrative: General:The patient appears in no acute respiratory distress. more comfortable today. Skin:Warm, dry, no pallor noted.There is no rash noted. Head:Normocephalic, atraumatic Eye: Normal conjunctiva, no drainage Ears, Nose, Mouth, and Throat: oral mucosa is moist. Nares patent. Cardiovascular: normal rate and rhythm Respiratory: Clear to auscultation with equal breath sounds Back:non-tender GI: Soft and nontender Musculoskeletal: The patient has no evidence of calf tenderness, no pitting edema, symmetrical pulses noted bilaterally Neurological: Awake and alert, normal speech Psychiatric:Cooperative Constitutional Vital Signs, click to edit/add: Last Vital Signs Temp 97.8 F 01/04/25 11:18 Pulse 73 01/04/25 11:58 Resp 20 01/04/25 11:18 BP 126/61 01/04/25 11:18 Pulse Ox 97 01/04/25 11:18 O2 Del Method Room Air 01/04/25 11:18 Results Labs Labs: Short CBC 01/03/25 01/04/25 Range/Units 12:58 05:49 WBC 19.8 H 20.5 H (4.0-11.0) 10^3/uL Hgb 14.0 12.7 (12.0-16.0) g/dL Hct 44.6 40.3 (36.0-48.0) % Plt Count 304 307 (150-450) 10^3/uL BMP 01/03/25 01/04/25 13:25 05:49 Sodium 138 135 L Potassium 3.7 4.1 Chloride 96 L 98 Carbon Dioxide 28.6 25.3 BUN 17.0 31.0 H Creatinine 0.98 0.91 Glucose 150 H 112 H Calcium 9.3 8.8 Liver Function 01/04/25 Range/Units 05:49 Total Bilirubin 0.7 (0.2-1.0) mg/dL AST 15 (15-37) U/L ALT 18 (14-59) U/L Alkaline Phosphatase 81 (46-116) U/L Albumin 2.5 L (3.4-5.0) g/dL Urine 01/03/25 Range/Units 15:17 Urine Color Yellow (YELLOW) Urine Clarity Clear (CLEAR) Urine pH 5.5 (5.0-9.0) Ur Specific [place] >=1.030 A (1.005-1.025) Urine Protein 30 A (NEG/TRACE) mg/dL Urine Glucose (UA) Negative (NEGATIVE) mg/dL ECG Attestation: I personally reviewed and interpreted this ECG as follows: (Normal sinus rhythm, no obvious acute ischemic changes ) Assessment and Plan Assessment and Plan (1) Atrial fibrillation with rapid ventricular response: (2) New onset a-fib: Plan New onset Afib with RVR -Required Cardizem bolus followed by drip, converted to NSR. started on Metoprolol for rate control 25 mg BID. -Started on Xarelto 20 mg daily for AC -Echo ordered -Cardiology consulted Leukocytosis UTI -Seems she has had chronic elevated WBC in the past as well. -She did have fever 100.7F on admission, afebrile today. denies any active complaints today -UA mildly positive for infection, pt started on IV Rocephin here -Pending urine and blood cultures -We checked her Flu/RSV/Covid> negative Cachexia/frailty/intentional weight loss due to poor oral intake -Will defer further work up and screening for malignancy to outpatient settings. Pt states she declined colonoscopies in the past, does not seem interested at this time. Asthma: controlled with home inhaler Trelegy DVT ppx: Xarelto Discussed with patient and her at bedside, all questions answered
--- OUTSIDE RECORDS SUMMARY | 2025-01-04 16:19 | XMS_ITS | Clinical Summary ---
Author Organization [facility] Address [address] [place] [id number] Care Team Providers Care Whale Fisherman Name Role Phone Zack Muller MD Primary Care Provider [phone] Allergies Active Allergy Reactions Criticality Noted Date Comments Aspirin Shortness of Breath 11/20/2010 Codeine And Related Dyspnea 09/11/2010 Propoxyphene N-Apap Shortness of Breath 011 Propoxyphene Compound Shortness of Breath 09/11 Morphine Dyspnea 09/11/2010 Medications Voriconazole (VFEND PO)Indications:N eoplasm of unspecified nature of bone, soft tissue, and skin take 3 Tabs by mouth daily. Active montelukast (SINGULAIR) 10 MG PO TABSIndications: Neoplasm of unspecified nature of bone, soft tissue, and skin take 10 mg by mouth daily. Active fluticasone-salm eterol (ADVAIR DISKUS) 500-50 MCG/DOSE IN AEPBIndications: Neoplasm of unspecified nature of bone, soft tissue, and skin take 1 Puff by inhalation every 12 hours. Active raloxifene (EVISTA) 60 MG PO TABSIndications: Neoplasm of unspecified nature of bone, soft tissue, and skin take 60 mg by mouth daily. Active lansoprazole (PREVACID) 30 MG PO cap DRIndications:Ne oplasm of unspecified nature of bone, soft tissue, and skin take 30 mg by mouth daily. Active tiotropium (SPIRIVA HANDIHALER) 18 MCG IN inhalation capsuleIndicatio ns:Neoplasm of unspecified nature of bone, soft tissue, and skin take 18 mcg by inhalation daily. Active albuterol 90 MCG/ACT IN AERSIndications: Neoplasm of unspecified nature of bone, soft tissue, and skin take 1 Puff by inhalation every 6 hours as needed. Active naproxen (NAPROSYN) 500 MG PO TABSIndications: Pathologic fracture of neck of femur take 1 Tab by mouth 2 times daily with meals. 60 Tab 1 1 Active Glucos-Chondroit -Hyaluron-D3 (TRIGOSAMINE MAX ST PO) take by mouth. Activ e hydrocodone-acet aminophen (VICODIN) 5-500 MG PO TABS take 1-2 Tabs by mouth every 8 hours as needed. 60 Tab 0 1 Active Active Problems Problem Noted Date Diagnosed Date Left knee pain 11/20/2010 Aftercare for healing pathologic fracture of hip 11/17/2010 Overview (11/17/2010): Left Biopsy and [facility] left femoral neck fracture (733.14) 09/20/2010 Resolved Problems Problem Noted Date Diagnosed Date Resolved Date Pathologic fracture 09/28/2010 09/29/19 11 Chronic intractable pain 09/18/2010 Neoplasm of unspecified natu re of bone, soft tissue, and skin 09/05/2010 11/17/2010 Overview (09/05/2010): Left femoral head / neck lesion. Family History Medical History Relation Name Comments Heart Disease - Other Father 85 yrs Other - Specify Father 85 yrs dementia Breast Cancer Mother 59 yrs Relation Name Status Comments Daughter Alive Father 85 yrs Mother 59 yrs Son Alive Social History Tobacco Use Types Packs/Day Years Used Date Smoking Tobacco: Never Alcohol Use Standard Drinks/Week Comments No 0 (1 standard drink = 0.6 oz pur e alcohol) Comments No Sex and Gender Information Value Date Recorded Sex Assigned at Not on file Legal Sex Female 6:50 PM EST Gender Identity Not on file Sexual Orientation Not on file Last Filed Vital Signs Vital Sign Reading Time Taken Comments Blood Pressure 164/69 12/18/2010 10:37 AM EDT Pulse 79 12/18/2010 10:37 AM EDT Temperature 36.8 C (98.2 F) 12/18/2010 10:37 AM EDT Respiratory Rate 16 12/18/2010 10:37 AM EDT Oxygen Saturation 99% 12/18/2010 10:37 AM EDT Inhaled Oxygen Concentration - - Weight 73 kg (160 lb 14.4 oz) 12/18/2010 10:37 A M EDT Height 160 cm (5' 3 ) 09/11/2010 1:42 PM EDT Body Mass Index 28.5 09/11/2010 1:42 PM EDT Plan of Treatment Health Maintenance Due Date Last Done Comments DEXA SCAN DISCUSSION 1949 HEPATITIS C VIRUS SCREENING 1949 TETANUS 1949 TDAP (ADULT) 02/23/1968 CERVICAL CANCER SCREENING DISCUSSION 1970 LIPID SCREENING 1989 MAMMOGRAM SCREENING DISCUSSION 1989 COLORECTAL CANCER SCREENING DISCUSSION 1994 PNEUMOCOCCAL VACCINE SERIES (1 of 1 - PCV) 1999 ZOSTER (SHINGLES) VACCINE (1 of 2) 1999 RSV VACCINE (1 - 1-dose 75+ series) 02/23/2024 COVID-19 VACCINE ( - 2023-2 5 season) 2024 INFLUENZA VACCINE (#1) 2024 HEP B VACCINE Aged Out No longer elig ible based on patient's age to complete this topic Care Teams Whale Fisherman Relationship Specialty Start Date End Date Zack Muller MD PCP - General 09/11/10
--- OUTSIDE RECORDS SUMMARY | 2025-01-04 16:19 | XMS_ITS | Patient Health Record ---
Author Organization [facility] in [place] Address [address] [place] [address] Care Team Providers Care Product Management Analyst Name Role Phone Avinash Muller Primary Care Provider [phone] Marilynn Bueno Unavailable [phone] Allergies Allergen (clinical drug ingredient) Drug/Non Drug Allergy documented on EMR Reaction Allergy Type Onset Date Status Darvon Unknown Drug Allergy Active Vicodin Unknown Drug Allergy Active aspirin Aspirin Unknown Drug Allergy Active codeine Codeine Unknown Drug Allergy Active morphine Morphine Unknown Drug Allergy Active Results Component Value Reference Range Notes COVID-19, Flu A+B IH Reviewed date:02/12/2024 12:25:15 PM Interpretation: Performing Lab: Notes/Report: COVID neg FLU A neg FLU B neg Control present BNP Reviewed date:07/28/2024 12:51:29 PM Interpretation: Performing Lab: Notes/Report: [facility] , NT Pro B Type Natriuretic Pept 437.0 <=1800.0 pg/mL Performing Lab: see note ML - [facility] LB CBC AUTO DIFF Reviewed date:02/12/2024 12:25:15 PM Interpretation: Performing Lab: Notes/Report: [facility] , White Blood Count 14.3 4.0-11.0 10 3/uL Red Blood Count 4.96 4.20-5.40 10 6/uL Hemoglobin 12.8 12.0-16.0 g/dL Hematocrit 39.8 36.0-48.0 % Mean Corpuscular Volume 80.2 81.0-99.0 fL Mean Corpuscular Hemoglobin 25.8 26.7-34.0 pg Mean Corpuscular HGB Conc 32.2 29.9-35.2 g/dL Red Cell Distribution Width 16.1 11.0-15.0 % Platelet Count 197 150-450 10 3/uL Neutrophils Percent Auto 74.8 43.0-75.0 % Lymphocytes Percent Auto 15.4 20.5-60.0 % Monocytes Percent Auto 8.1 1.7-12.0 % Eosinophils Percent Auto 0.2 0.9-7.0 % Basophils Percent Auto 0.2 0.2-2.0 % Immature Granulocytes Pct Auto 1.3 0.0-0.5 % Neutrophils Absolute Auto 10.7 1.4-6.5 10 3/uL Lymphocytes Absolute Auto 2.2 1.2-3.8 10 3/uL Monocytes Absolute Auto 1.2 0.3-0.8 10 3/uL Eosinophils Absolute Auto 0.0 0.0-0.7 10 3/uL Basophils Absolute Auto 0.0 0.0-0.1 10 3/uL Immature Granulocytes Abs Auto 0.19 0.00-0.03 10 3/uL Performing Lab: see note ML - [facility] LB IRON Reviewed date:02/12/2024 08:26:46 PM Interpretation: Performing Lab: Notes/Report: [facility] , Iron 97.0 50.0-170.0 ug/dL Performing Lab: see note ML - [facility] LB BNP Reviewed date:02/13/2024 01:32:17 PM Interpretation: Performing Lab: Notes/Report: [facility] , NT Pro B Type Natriuretic Pept 831.0 <=900.0 pg/mL Performing Lab: see note ML - [facility] LB CBC AUTO DIFF Reviewed date:02/13/2024 01:32:17 PM Interpretation: Performing Lab: Notes/Report: [facility] , White Blood Count 11.4 4.0-11.0 10 3/uL Red Blood Count 4.89 4.20-5.40 10 6/uL Hemoglobin 12.5 12.0-16.0 g/dL Hematocrit 38.8 36.0-48.0 % Mean Corpuscular Volume 79.3 81.0-99.0 fL Mean Corpuscular Hemoglobin 25.6 26.7-34.0 pg Mean Corpuscular HGB Conc 32.2 29.9-35.2 g/dL Red Cell Distribution Width 16.5 11.0-15.0 % Platelet Count 191 150-450 10 3/uL Mean Platelet Volume 13.8 9.5-13.5 fL Neutrophils Percent Auto 72.2 43.0-75.0 % Lymphocytes Percent Auto 17.3 20.5-60.0 % Monocytes Percent Auto 8.0 1.7-12.0 % Eosinophils Percent Auto 0.2 0.9-7.0 % Basophils Percent Auto 0.4 0.2-2.0 % Immature Granulocytes Pct Auto 1.9 0.0-0.5 % Neutrophils Absolute Auto 8.2 1.4-6.5 10 3/uL Lymphocytes Absolute Auto 2.0 1.2-3.8 10 3/uL Monocytes Absolute Auto 0.9 0.3-0.8 10 3/uL Eosinophils Absolute Auto 0.0 0.0-0.7 10 3/uL Basophils Absolute Auto 0.1 0.0-0.1 10 3/uL Immature Granulocytes Abs Auto 0.22 0.00-0.03 10 3/uL Performing Lab: see note ML - [facility] LB LIPASE Reviewed date:02/13/2024 01:32:17 PM Interpretation: Performing Lab: Notes/Report: [facility] , Lipase 12.0 16.0-77.0 U/L Performing Lab: see note ML - [facility] LB PROF 14(COMP METB) Reviewed date:02/13/2024 01:32:17 PM Interpretation: Performing Lab: Notes/Report: [facility] , Sodium 138 136-145 mmol/L Potassium 2.9 3.5-5.1 mmol/L RESULTS NEDA BELLE D.O. Chloride 98 98-107 mmol/L Carbon Dioxide 28.5 21.0-32.0 mmol/L Anion Gap 14.4 Glucose 116 74-106 mg/dL Blood Urea Nitrogen 48.0 7.0-18.0 mg/dL Creatinine 2.73 0.55-1.02 mg/dL Estimated GFR ( Lety 21 >=60 mL/min/1.73m 2 Estimated GFR (Non- Nadira 17 >=60 mL/min/1.73m 2 BUN Creatinine Ratio 17.6 Calcium 8.5 8.5-10.1 mg/dL Bilirubin Total 0.8 0.2-1.0 mg/dL Aspartate Amino Transferase 17 15-37 U/L Alanine Aminotransferase 23 14-59 U/L Alkaline Phosphatase 76 46-116 U/L Total Protein 6.4 6.4-8.2 g/dL Albumin Level 3.3 3.4-5.0 g/dL Globulin 3.1 Albumin Globulin Ratio 1.1 Performing Lab: see note ML - [facility] LB Troponin I High Sensitivity Reviewed date:02/13/2024 01:32:17 PM Interpretation: Performing Lab: Notes/Report: [facility] , Troponin I High Sensitivity 35.5 4.0-51.3 pg/m L CUT-OFF POINTS HAVE BEEN ESTABLISHED BASED ON THE FOURTH UNIVERSAL DEFINITION OF MYOCARDIAL INFARCTION. THE UPPER REFERENCE LIMIT (URL) OF TROPONIN, DEFINED THE 99TH PERCENTILE OF cTnI DISTRIBUTION IN A REFERENCE POPULATION, HAS BEEN CONFIRMED THE DECISION THRESHOLD FOR ND DIAGNOSIS. 99TH PERCENTILE = 51.4 PG/ML NOTE: HIGH-SENSITIVITY TROPONIN ASSAY IS NOT INTENDED TO BE USED IN ISOLATION BUT SHOULD BE INTERPRETED IN CONJUNCTION WITH OTHER DIAGNOSTIC AND CLINICAL INFORMATION. Performing Lab: see note ML - [facility] LB CT abdomen pelvis wo con Reviewed date:02/13/2024 01:32:17 PM Interpretation: Performing Lab: Notes/Report: Source Facility: [place] [address] CT Scan Report Signed Patient: ILANA MOORE MR#: [id number] : 1950 Acct:[id number] Age/Sex: 73 / F ADM Date: Loc: ER Attending Dr: Ordering Physician: Neda Bills D.O. Date of Service: 02/13/24 Procedure(s): CT abdomen pelvis wo con Accession Number(s): [id number] cc: Velma Muller M.D. [place] [address] Patient Name: ILANA MOORE MRN: [facility]:[id number] date: 1950 Sex: F Assigned Patient Location: ER Current Patient Location: ER Accession/Order Number: [id number] Exam Date: 02/13/2024 11:36 Report Date: 02/13/2024 12:20 At the request of: NEDA BILLS Procedure: CT abdomen pelvis wo con EXAMINATION: CT abdomen pelvis wo con HISTORY: vomiting, pain COMPARISON: No relevant comparison available. TECHNIQUE: Axial, Coronal, and Sagittal images were obtained without and/or with IV contrast as indicated by examination type. Dose reduction techniques were achieved by using automated exposure control and/or adjustment of mA and/or kV according to patient size and/or use of iterative reconstruction technique. FINDINGS: LUNG BASES: Prominent bronchiectasis within right lung base. Trace amount of atelectasis or infiltrates. No pleural effusion. Prominent pericardial fat pad likely accounting for appearance on today's chest x-ray. LIVER: No enlargement, atrophy, suspicious density, or significant focal lesion. BILIARY: Cholecystectomy. Prominent dilation of the common bile duct and proximal intrahepatic ducts. Gentle tapering to the ampulla of Vater. No appreciable stones or mass. PANCREAS: Marked fatty replacement/atrophy. No abnormal dilation of the pancreatic duct. No mass or fluid collection. SPLEEN: No enlargement or focal lesion. ADRENALS: No mass or enlargement. KIDNEYS: No mass, obstruction, or calcification. BOWEL/MESENTERY: No visible mass, obstruction, or bowel wall thickening. Normal appendix. AORTA/VASCULAR: No aneurysm or dissection. RETROPERITONEUM: No mass or adenopathy. LYMPH NODES: No adenopathy. URINARY BLADDER: No visible focal wall thickening, lesion, or calculus. PELVIC ORGANS: 3.0 cm oval fluid collection within lower left pelvis, likely ovarian cyst. ABDOMINAL WALL: Remote left pubic rami fractures and healing. Prior left femoral neck repair. Right hip replacement. T12 moderate-marked compression fracture without increased trabecular density. BONES: No bony lesion or fracture. OTHER: Negative. CT/CT abdomen pelvis wo con IMPRESSION: 1. Prominent chronic bronchiectasis within right lung base. No convincing infiltrates or pleural effusion. 2. Abnormally dilated common bile duct and intrahepatic ducts, but no appreciable mass or stone to cause obstruction. No pancreatic mass or abnormal dilation of the pancreatic duct. 3. Lower left pelvis 3.0 cm cyst suspected to be an ovarian cyst. This is abnormal in a patient of this age. Consider nonemergent follow-up ultrasound evaluation. 4. Age-indeterminate moderate compression fracture of T12, but suspected to be chronic. Old healed fractures of the pelvis and bilateral hip repair. Electronically authenticated by: PAUL PRIETO Date: 02/13/2024 12:20 Dictated By: Paul Prieto M.D. Signed By: 02/13/24 1223 DD/ 1220 TD/TT: Candlemaking Laborer: XR chest 1V Reviewed date:02/13/2024 01:32:17 PM Interpretation: Performing Lab: Notes/Report: Source Facility: [place] [address] XRay Report Signed Patient: ILANA MOORE MR#: [id number] : 1950 Acct:[id number] Age/Sex: 73 / F ADM Date: Loc: ER Attending Dr: Ordering Physician: Neda Bills D.O. Date of Service: 02/13/24 Procedure(s): XR chest 1V Accession Number(s): [id number] cc: Velma Muller M.D.; Neda Bills D.O. [place] [address] Patient Name: ILANA MOORE MRN: [facility]:[id number] date: 1950 Sex: F Assigned Patient Location: ER Current Patient Location: ER Accession/Order Number: [id number] Exam Date: 02/13/2024 11:25 Report Date: 02/13/2024 12:02 At the request of: NEDA BILLS Procedure: XR chest 1V EXAMINATION: XR chest 1V HISTORY: weak COMPARISON: XR chest 02/12/2024 FINDINGS: LUNGS: Opacities within right lung base obscuring the diaphragm margin. Chronic interstitial changes suggestive of COPD. VASCULATURE: No increased pulmonary vasculature. PLEURA: No pneumothorax, effusion, or pleural thickening. CARDIAC: Suspect mild cardiomegaly. MEDIASTINUM: No visible mass or adenopathy. BONES: No fracture or visible bone lesion. OTHER: Negative. XR/XR chest 1V IMPRESSION: 1. Opacities within right lung base obscuring the diaphragm; mild infiltrates versus atelectasis. Possible small pleural effusion. Electronically authenticated by: PAUL PRIETO Date: 02/13/2024 12:02 Dictated By: Paul Prieto M.D. Signed By: 02/13/241203 DD/ 01 TD/TT: Candlemaking Laborer: CBC AUTO DIFF Reviewed date:02/15/2024 09:20:04 AM Interpretation: Performing Lab: Notes/Report: [facility] , White Blood Count 9.6 4.0-11.0 10 3/uL Red Blood Count 4.14 4.20-5.40 10 6/uL Hemoglobin 10.7 12.0-16.0 g/dL Hematocrit 33.0 36.0-48.0 % Mean Corpuscular Volume 79.7 81.0-99.0 fL Mean Corpuscular Hemoglobin 25.8 26.7-34.0 pg Mean Corpuscular HGB Conc 32.4 29.9-35.2 g/dL Red Cell Distribution Width 16.8 11.0-15.0 % Platelet Count 158 150-450 10 3/uL Neutrophils Percent Auto 83.2 43.0-75.0 % Lymphocytes Percent Auto 7.0 20.5-60.0 % Monocytes Percent Auto 4.8 1.7-12.0 % Eosinophils Percent Auto 0.0 0.9-7.0 % Basophils Percent Auto 0.4 0.2-2.0 % Immature Granulocytes Pct Auto 4.6 0.0-0.5 % Neutrophils Absolute Auto 8.0 1.4-6.5 10 3/uL Lymphocytes Absolute Auto 0.7 1.2-3.8 10 3/uL Monocytes Absolute Auto 0.5 0.3-0.8 10 3/uL Eosinophils Absolute Auto 0.0 0.0-0.7 10 3/uL Basophils Absolute Auto 0.0 0.0-0.1 10 3/uL Immature Granulocytes Abs Auto 0.44 0.00-0.03 10 3/uL Performing Lab: see note ML - [facility] LB MAGNESIUM Reviewed date:02/15/2024 09:20:04 AM Interpretation: Performing Lab: Notes/Report: [facility] , Magnesium 1.4 1.8-2.4 mg/dL Performing Lab: see note ML - [facility] LB PROF 14(COMP METB) Reviewed date:02/15/2024 09:20:04 AM Interpretation: Performing Lab: Notes/Report: [facility] , Sodium 140 136-145 mmol/L Potassium 3.4 3.5-5.1 mmol/L Chloride 106 98-107 mmol/L Carbon Dioxide 23.7 21.0-32.0 mmol/L Anion Gap 13.7 Glucose 170 74-106 mg/dL Blood Urea Nitrogen 33.0 7.0-18.0 mg/dL Creatinine 1.79 0.55-1.02 mg/dL Estimated GFR ( Lety 34 >=60 mL/min/1.73m 2 Estimated GFR (Non- Nadira 28 >=60 mL/min/1.73m 2 BUN Creatinine Ratio 18.4 Calcium 8.0 8.5-10.1 mg/dL Bilirubin Total 0.7 0.2-1.0 mg/dL Aspartate Amino Transferase 14 15-37 U/L Alanine Aminotransferase 19 14-59 U/L Alkaline Phosphatase 55 46-116 U/L Total Protein 5.1 6.4-8.2 g/dL Albumin Level 2.7 3.4-5.0 g/dL Globulin 2.4 Albumin Globulin Ratio 1.1 Performing Lab: see note ML - [facility] LB UA (CLEAN or CATCH) BILINGUAL CUSTOMER SERVICE or M ICRO IF IND. Reviewed date:02/15/2024 09:20:04 AM Interpretation: Performing Lab: Notes/Report: [facility] , Color Urine LT. YELLOW YELLOW Clarity Urine CLEAR CLEAR Specific Orient Urine 1.020 1.005-1.025 pH Urine 5.5 5.0-9.0 Protein Urine NEGATIVE NEG/TRACE mg/dL Glucose Urine UA 250 NEGATIVE mg/dL Bilirubin Urine NEGATIVE NEGATIVE Ketones Urine NEGATIVE NEGATIVE mg/dL Blood Urine NEGATIVE NEGATIVE Nitrite Urine NEGATIVE NEGATIVE Urobilinogen Urine 0.2 0.2-1.0 EU/dL Leukocyte Esterase Urine NEGATIVE NEGATIVE Urine Microscopic Indicated NO Performing Lab: see note ML - [facility] LB Occult Blood* Reviewed date:02/15/2024 09:20:04 AM Interpretation: Performing Lab: Notes/Report: [facility] , Occult Blood Negative Performing Lab: see note ML - [facility] LB XR chest 2V Reviewed date:02/15/2024 09:20:04 AM Interpretation: Performing Lab: Notes/Report: Source Facility: [address] [address] XRay Report Signed Patient: ILANA MOORE MR#: [id number] : 1950 Acct:[id number] Age/Sex: 73 / F ADM Date: 02/12/24 Loc: LAB Attending Dr: Velma Muller M.D. Ordering Physician: Velma Muller M.D. Date of Service: 02/12/24 Procedure(s): XR chest 2V Accession Number(s): [id number] cc: Velma Muller M.D. [place] [address] Patient Name: ILANA MOORE MRN: [id number]:[id number] date: 1950 Sex: F Assigned Patient Location: LAB Current Patient Location: MS Accession/Order Number: [id number] Exam Date: 02/12/2024 11:35 Report Date: 02/14/2024 06:53 At the request of: VELMA MULLER Procedure: XR chest 2V EXAMINATION: XR chest 2V HISTORY: Chronic Obstructive Pulmonary Disease COMPARISON: XR chest 02/07/2022 FINDINGS: LUNGS: Hyperexpanded lungs compatible with COPD. Stable mild opacities within right lung base partially obscuring the diaphragm margin. Prominent pericardial fat pad within left lung base. VASCULATURE: No increased pulmonary vasculature. PLEURA: No pneumothorax, effusion, or pleural thickening. CARDIAC: No cardiomegaly or cardiac silhouette abnormality. MEDIASTINUM: No visible mass or adenopathy. BONES: No fracture or visible bone lesion. OTHER: Enlarged appearance of the aortic arch, approximately 5.3 cm. XR/XR chest 2V IMPRESSION: 1. Hyperexpanded lungs compatible with COPD. 2. Mild right basilar infiltrates versus atelectasis; slightly <seen on prior study. 3. 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 Electronically authenticated by: PAUL PRIETO Date: 02/14/2024 06:53 Dictated By: Paul Prieto M.D. Signed By: 02/14/24 0655 DD/ 0653 TD/TT: Candlemaking Laborer: BNP Reviewed date:03/01/2024 06:07:27 PM Interpretation: Performing Lab: Notes/Report: [facility] , NT Pro B Type Natriuretic Pept 892.0 <=1800.0 pg/mL Performing Lab: see note - [facility] LB CBC AUTO DIFF Reviewed date:03/01/2024 06:07:27 PM Interpretation: Performing Lab: Notes/Report: [facility] , White Blood Count 15.8 4.0-11.0 10 3/uL Red Blood Count 4.92 4.20-5.40 10 6/uL Hemoglobin 12.7 12.0-16.0 g/dL Hematocrit 39.7 36.0-48.0 % Mean Corpuscular Volume 80.7 81.0-99.0 fL Mean Corpuscular Hemoglobin 25.8 26.7-34.0 pg Mean Corpuscular HGB Conc 32.0 29.9-35.2 g/dL Red Cell Distribution Width 17.3 11.0-15.0 % Platelet Count 238 150-450 10 3/uL Mean Platelet Volume 13.1 9.5-13.5 fL Neutrophils Percent Auto 69.8 43.0-75.0 % Lymphocytes Percent Auto 16.6 20.5-60.0 % Monocytes Percent Auto 6.7 1.7-12.0 % Eosinophils Percent Auto 0.1 0.9-7.0 % Basophils Percent Auto 0.1 0.2-2.0 % Immature Granulocytes Pct Auto 6.7 0.0-0.5 % Neutrophils Absolute Auto 11.0 1.4-6.5 10 3/uL Lymphocytes Absolute Auto 2.6 1.2-3.8 10 3/uL Monocytes Absolute Auto 1.1 0.3-0.8 10 3/uL Eosinophils Absolute Auto 0.0 0.0-0.7 10 3/uL Basophils Absolute Auto 0.0 0.0-0.1 10 3/uL Immature Granulocytes Abs Auto 1.06 0.00-0.03 10 3/uL Performing Lab: see note ML - [facility] LB D-DIMER Reviewed date:03/01/2024 06:07:27 PM Interpretation: Performing Lab: Notes/Report: [facility] , D Dimer 0.88 <=0.59 mg/L FEU RESULTS CALLED TO HUNTER MADISON RN IN ER BY Val Au at 1112 Increases in D-Dimer concentration observed with thromboembolic events can be variable due to localization, size, and age of the thrombus. Therefore, a thromboembolic event cannot be diagnosed with certainty on the basis of the reference range. D-Dimers may also be elevated for a variety of disorders including advanced age, , coronary disease, cancer, liver disease, infection, inflammation, hematoma, DIC, trauma, post-surgery, diabetes, thrombolytic or anticoagulant therapy, stress, and generalized hospitalization. Performing Lab: see note ML - [facility] LB PROF CHEM 8 (BRIGITTE FLAHERTY) Reviewed date:03/01/2024 06:07:27 PM Interpretation: Performing Lab: Notes/Report: [facility] , Sodium 136 136-145 mmol/L Potassium 3.7 3.5-5.1 mmol/L Chloride 96 98-107 mmol/L Carbon Dioxide 27.8 21.0-32.0 mmol/L Anion Gap 15.9 Glucose 164 74-106 mg/dL Blood Urea Nitrogen 33.0 7.0-18.0 mg/dL Creatinine 1.56 0.55-1.02 mg/dL Estimated GFR ( Lety 39 >=60 mL/min/1.73m 2 Estimated GFR (Non- Nadira 32 >=60 mL/min/1.73m 2 BUN Creatinine Ratio 21.2 Calcium 8.7 8.5-10.1 mg/dL Performing Lab: see note - [facility] LB UA RANDOM W or MICROSCOPIC Reviewed date:03/01/2024 06:07:27 PM Interpretation: Performing Lab: Notes/Report: [facility] , Color Urine LT. YELLOW YELLOW Clarity Urine CLEAR CLEAR Specific Orient Urine >=1.030 1.005-1.025 pH Urine 5.0 5.0-9.0 Protein Urine NEGATIVE NEG/TRACE mg/dL Glucose Urine UA NEGATIVE NEGATIVE mg/dL Bilirubin Urine NEGATIVE NEGATIVE Ketones Urine NEGATIVE NEGATIVE mg/dL Blood Urine NEGATIVE NEGATIVE Nitrite Urine NEGATIVE NEGATIVE Urobilinogen Urine 0.2 0.2-1.0 EU/dL Leukocyte Esterase Urine SMALL NEGATIVE WBC Urine 10-20 NONE SEEN #/HPF RBC Urine NONE SEEN 0-2 #/HPF Bacteria Urine SMALL NONE SEEN #/HPF Mucus Urine NONE SEEN NONE SEEN Squamous Epithelial Cell Urine FEW NONE/RARE #/LPF Cast Seen? SEEN NONE SEEN #/LPF Hyaline Casts Urine MODERATE Performing Lab: see note ML - [facility] LB ECG 12 lead Reviewed date:03/01/2024 06:07:27 PM Interpretation: Performing Lab: Notes/Report: Source Facility: [place] [address] Electrocardiograph Report Signed Patient: ILANA MOORE MR#: [id number] : 1950 Acct:[id number] Age/Sex: 74 / F ADM Date: 02/28/24 Loc: [place] 214-[address]: Velma Muller M.D. Ordering Physician: Jane Mckinley M.D. 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 Signed By: 02/29/24 0628 DD/ 1028 TD/TT: Candlemaking Laborer: TERRY chest 1V Reviewed date:03/01/2024 06:07:27 PM Interpretation: Performing Lab: Notes/Report: Source Facility: [place] [address] XRay Report Signed Patient: ILANA MOORE MR#: [id number] : 1950 Acct:[id number] Age/Sex: 74 / F ADM Date: 02/28/24 Loc: ER Attending Dr: Ordering Physician: Jane Mckinley M.D. Date of Service: 02/28/24 Procedure(s): XR chest 1V Accession Number(s): [id number] cc: Velma Muller M.D.; Jane Mckinley M.D. [address] [address] Patient Name: ILANA MOORE MRN: [id number] date: 1950 Sex: F Assigned Patient Location: ER Current Patient Location: ER Accession/Order Number: [id number] Exam Date: 02/28/2024 10:46 Report Date: 02/28/2024 11:21 At the request of: JANE MCKINLEY Procedure: XR chest 1V EXAMINATION: XR chest 1V HISTORY: Peripheral edema COMPARISON: XR chest 02/13/2024 FINDINGS: LUNGS: Opacities within the right lung base obscuring the diaphragm margin and costophrenic angle. VASCULATURE: No increased pulmonary vasculature. PLEURA: No pneumothorax, effusion, or pleural thickening. CARDIAC: No cardiomegaly or cardiac silhouette abnormality. MEDIASTINUM: No visible mass or adenopathy. BONES: No fracture or visible bone lesion. OTHER: Negative. XR/XR chest 1V IMPRESSION: 1. Mild opacities obscuring the right lung base; similar to prior study. Suspect mild atelectasis/infiltrates or possibly a small pleural effusion. Electronically authenticated by: PAUL PRIETO Date: 02/28/2024 11:21 Dictated By: Paul Prieto M.D. Signed By: 02/28/24 1124 DD/ 1121 TD/TT: Candlemaking Laborer: CBC AUTO DIFF Reviewed date:03/01/2024 06:07:27 PM Interpretation: Performing Lab: Notes/Report: [facility] , White Blood Count 15.1 4.0-11.0 10 3/uL Red Blood Count 5.12 4.20-5.40 10 6/uL Hemoglobin 13.1 12.0-16.0 g/dL Hematocrit 41.2 36.0-48.0 % Mean Corpuscular Volume 80.5 81.0-99.0 fL Mean Corpuscular Hemoglobin 25.6 26.7-34.0 pg Mean Corpuscular HGB Conc 31.8 29.9-35.2 g/dL Red Cell Distribution Width 17.8 11.0-15.0 % Platelet Count 224 150-450 10 3/uL Mean Platelet Volume 12.6 9.5-13.5 fL Performing Lab: see note - [facility] LB PROF CHEM 8 (BAS METB) Reviewed date:03/01/2024 06:07:27 PM Interpretation: Performing Lab: Notes/Report: [facility] , Sodium 143 136-145 mmol/L Potassium 3.6 3.5-5.1 mmol/L Chloride 100 98-107 mmol/L Carbon Dioxide 36.0 21.0-32.0 mmol/L Anion Gap 10.6 Glucose 119 74-106 mg/dL Blood Urea Nitrogen 36.0 7.0-18.0 mg/dL Creatinine 1.35 0.55-1.02 mg/dL Estimated GFR ( Lety 46 >=60 mL/min/1.73m 2 Estimated GFR (Non- Nadira 38 >=60 mL/min/1.73m 2 BUN Creatinine Ratio 26.7 Calcium 8.5 8.5-10.1 mg/dL Performing Lab: see note - [facility] LB Manual Differential Reviewed date:03/01/2024 06:07:27 PM Interpretation: Performing Lab: Notes/Report: [facility] , Segmented Neutrophils % Manual 67.0 43.0-75.0 Band Neutrophils % 1.0 0-5 % Lymphocytes Percent Manual 21.0 20.5-60.0 % Monocytes Percent Manual 10.0 1.7-12.0 % Eosinophils Percent Manual 0.0 0.9-7.0 % Basophils Percent Manual 0.0 0.2-2.0 % Myelocytes % Manual 1.0 Segmented Neut Absolute Manual 10.11 1.4-6.5 10 3/uL Band Neutrophils Absolute 0.2 0.0-0.3 10 3/uL Lymphocytes Absolute Manual 3.17 1.20-3.80 10 3/uL Monocytes Absolute Manual 1.51 0.30-0.80 10 3/ uL Eosinophils Absolute Manual 0.00 0.00-0.70 10 3/uL Basophils Abs Manual 0.00 0.00-0.10 10 3/uL Myelocytes Absolute Manual 0.15 Anisocytosis 1+ Performing Lab: see note ML - [facility] LB CBC AUTO DIFF Reviewed date:03/01/2024 06:07:27 PM Interpretation: Performing Lab: Notes/Report: [facility] , White Blood Count 14.7 4.0-11.0 10 3/uL Red Blood Count 4.99 4.20-5.40 10 6/uL Hemoglobin 12.8 12.0-16.0 g/dL Hematocrit 40.0 36.0-48.0 % Mean Corpuscular Volume 80.2 81.0-99.0 fL Mean Corpuscular Hemoglobin 25.7 26.7-34.0 pg Mean Corpuscular HGB Conc 32.0 29.9-35.2 g/dL Red Cell Distribution Width 18.0 11.0-15.0 % Platelet Count 215 150-450 10 3/uL Mean Platelet Volume 12.3 9.5-13.5 fL Performing Lab: see note - [facility] LB PROF CHEM 8 (BAS METB) Reviewed date:03/01/2024 06:07:27 PM Interpretation: Performing Lab: Notes/Report: [facility] , Sodium 141 136-145 mmol/L Potassium 3.4 3.5-5.1 mmol/L Chloride 97 98-107 mmol/L Carbon Dioxide 36.1 21.0-32.0 mmol/L Anion Gap 11.3 Glucose 138 74-106 mg/dL Blood Urea Nitrogen 36.0 7.0-18.0 mg/dL Creatinine 1.31 0.55-1.02 mg/dL Estimated GFR ( Lety 48 >=60 mL/min/1.73m 2 Estimated GFR (Non- Nadira 40 >=60 mL/min/1.73m 2 BUN Creatinine Ratio 27.5 Calcium 8.1 8.5-10.1 mg/dL Performing Lab: see note ML - [facility] LB Manual Differential Reviewed date:03/01/2024 06:07:27 PM Interpretation: Performing Lab: Notes/Report: [facility] , Segmented Neutrophils % Manual 66.0 43.0-75.0 Band Neutrophils % 3.0 0-5 % Lymphocytes Percent Manual 20.0 20.5-60.0 % Monocytes Percent Manual 9.0 1.7-12.0 % Eosinophils Percent Manual 1.0 0.9-7.0 % Basophils Percent Manual 0.0 0.2-2.0 % Metamyelocytes % 1.0 Segmented Neut Absolute Manual 9.70 1.4-6.5 10 3/uL Band Neutrophils Absolute 0.4 0.0-0.3 10 3/uL Lymphocytes Absolute Manual 2.94 1.20-3.80 10 3/uL Monocytes Absolute Manual 1.32 0.30-0.80 10 3/ uL Eosinophils Absolute Manual 0.14 0.00-0.70 10 3/uL Basophils Abs Manual 0.00 0.00-0.10 10 3/uL Metamyelocytes Absolute Manual 0.14 Anisocytosis 1+ Performing Lab: see note ML - [facility] LB CBC AUTO DIFF Reviewed date:03/02/2024 10:14:06 AM Interpretation: Performing Lab: Notes/Report: [facility] , White Blood Count 14.1 4.0-11.0 10 3/uL Red Blood Count 4.68 4.20-5.40 10 6/uL Hemoglobin 12.2 12.0-16.0 g/dL Hematocrit 37.9 36.0-48.0 % Mean Corpuscular Volume 81.0 81.0-99.0 fL Mean Corpuscular Hemoglobin 26.1 26.7-34.0 pg Mean Corpuscular HGB Conc 32.2 29.9-35.2 g/dL Red Cell Distribution Width 17.8 11.0-15.0 % Platelet Count 194 150-450 10 3/uL Mean Platelet Volume 12.7 9.5-13.5 fL Performing Lab: see note - [facility] LB PROF CHEM 8 (BAS METB) Reviewed date:03/02/2024 10:14:06 AM Interpretation: Performing Lab: Notes/Report: [facility] , Sodium 139 136-145 mmol/L Potassium 3.4 3.5-5.1 mmol/L Chloride 99 98-107 mmol/L Carbon Dioxide 37.0 21.0-32.0 mmol/L Anion Gap 6.4 Glucose 138 74-106 mg/dL Blood Urea Nitrogen 36.0 7.0-18.0 mg/dL Creatinine 1.27 0.55-1.02 mg/dL Estimated GFR ( Lety 50 >=60 mL/min/1.73m 2 Estimated GFR (Non- Nadira 41 >=60 mL/min/1.73m 2 BUN Creatinine Ratio 28.3 Calcium 8.5 8.5-10.1 mg/dL Performing Lab: see note ML - [facility] LB Manual Differential Reviewed date:03/02/2024 10:14:06 AM Interpretation: Performing Lab: Notes/Report: [facility] , Segmented Neutrophils % Manual 75.0 43.0-75.0 Band Neutrophils % 3.0 0-5 % Lymphocytes Percent Manual 17.0 20.5-60.0 % Monocytes Percent Manual 3.0 1.7-12.0 % Eosinophils Percent Manual 0.0 0.9-7.0 % Basophils Percent Manual 0.0 0.2-2.0 % Metamyelocytes % 2.0 Segmented Neut Absolute Manual 10.57 1.4-6.5 10 3/uL Band Neutrophils Absolute 0.4 0.0-0.3 10 3/uL Lymphocytes Absolute Manual 2.39 1.20-3.80 10 3/uL Monocytes Absolute Manual 0.42 0.30-0.80 10 3/ uL Eosinophils Absolute Manual 0.00 0.00-0.70 10 3/uL Basophils Abs Manual 0.00 0.00-0.10 10 3/uL Metamyelocytes Absolute Manual 0.28 Anisocytosis 2+ Ovalocytes 2+ Performing Lab: see note ML - [facility] LB CBC AUTO DIFF Reviewed date:03/11/2024 03:53:35 PM Interpretation: Performing Lab: Notes/Report: [facility] , White Blood Count 21.7 4.0-11.0 10 3/uL Red Blood Count 4.71 4.20-5.40 10 6/uL Hemoglobin 12.3 12.0-16.0 g/dL Hematocrit 38.6 36.0-48.0 % Mean Corpuscular Volume 82.0 81.0-99.0 fL Mean Corpuscular Hemoglobin 26.1 26.7-34.0 pg Mean Corpuscular HGB Conc 31.9 29.9-35.2 g/dL Red Cell Distribution Width 18.5 11.0-15.0 % Platelet Count 261 150-450 10 3/uL Mean Platelet Volume 12.4 9.5-13.5 fL Performing Lab: see note ML - [facility] LB UA (CLEAN or CATCH) BILINGUAL CUSTOMER SERVICE or M ICRO IF IND. Reviewed date:03/11/2024 03:53:35 PM Interpretation: Performing Lab: Notes/Report: [facility] , Color Urine YELLOW YELLOW Clarity Urine SL CLOUDY CLEAR Specific Orient Urine >=1.030 1.005-1.025 pH Urine 5.5 5.0-9.0 Protein Urine TRACE NEG/TRACE mg/dL Glucose Urine UA NEGATIVE NEGATIVE mg/dL Bilirubin Urine SMALL NEGATIVE Ketones Urine NEGATIVE NEGATIVE mg/dL Blood Urine NEGATIVE NEGATIVE Nitrite Urine NEGATIVE NEGATIVE Urobilinogen Urine 0.2 0.2-1.0 EU/dL Leukocyte Esterase Urine NEGATIVE NEGATIVE Urine Microscopic Indicated NO Performing Lab: see note ML - [facility] LB Blood Culture 1 Reviewed date:03/19/2024 05:50:10 PM Interpretation: Performing Lab: Notes/Report: [facility] , Blood Culture 1 See Below For Report Blood Culture 1 NG5D NO GROWTH AT 5 DAYS. Performing Lab: see note - [facility] LB Blood Culture 2 Reviewed date:03/19/2024 05:50:10 PM Interpretation: Performing Lab: Notes/Report: LT HAND [facility] , Blood Culture 2 See Below For Report Blood Culture 2 NG5D NO GROWTH AT 5 DAYS. Performing Lab: see note - [facility] LB XR chest 1V Reviewed date:03/11/2024 03:53:36 PM Interpretation: Performing Lab: Notes/Report: Source Facility: [facility] [place] [address] [place] [address] XRay Report Signed Patient: ILANA MOORE MR#: [id number] : 1950 Acct:[id number] Age/Sex: 74 / F ADM Date: 03/11/24 Loc: ER Attending Dr: Ordering Physician: Neda Bills D.O. Date of Service: 03/11/24 Procedure(s): XR chest 1V Accession Number(s): [id number] cc: Velma Muller M.D.; Neda Bills D.O. [address] [address] Patient Name: ILANA MOORE MRN: [facility]:[id number] date: 1950 Sex: F Assigned Patient Location: ER Current Patient Location: ER Accession/Order Number: [id number] Exam Date: 03/11/2024 13:45 Report Date: 03/11/2024 14:03 At the request of: NEDA BILLS Procedure: XR chest 1V EXAMINATION: XR chest 1V HISTORY: weak COMPARISON: XR chest 02/28/2024 FINDINGS: LUNGS: Mild opacities within right lung base obscuring the diaphragm margin and lateral costophrenic angle. Suspect prominent kyphoscoliosis. Hyperexpanded lungs from COPD. Left lung base opacity likely represents a prominent pericardial fat pad. VASCULATURE: No increased pulmonary vasculature. PLEURA: No pneumothorax, effusion, or pleural thickening. CARDIAC: No cardiomegaly or cardiac silhouette abnormality. MEDIASTINUM: No visible mass or adenopathy. BONES: No fracture or visible bone lesion. OTHER: Negative. XR/XR chest 1V IMPRESSION: 1. Limited examination due to patient positioning. 2. Chronic changes of COPD. 3. Mild acute infiltrates versus atelectasis within right lung base and likely small right pleural effusion. Electronically authenticated by: PAUL PRIETO Date: 03/11/2024 14:03 Dictated By: Paul Prieto M.D. Signed By: 03/11/24 1406 DD/ 1403 TD/TT: Candlemaking Laborer: LACTATE or LACTIC ACID Reviewed date:03/12/2024 02:48:32 PM Interpretation: Performing Lab: Notes/Report: [facility] , Lactate/Lactic Acid 1.8 0.4-2.0 mmol/L Performing Lab: see note ML - [facility] LB BNP Reviewed date:03/12/2024 02:48:32 PM Interpretation: Performing Lab: Notes/Report: [facility] , NT Pro B Type Natriuretic Pept 1213.0 <=1800.0 pg/mL Performing Lab: see note - [facility] LB CBC AUTO DIFF Reviewed date:03/12/2024 02:48:32 PM Interpretation: Performing Lab: Notes/Report: [facility] , White Blood Count 17.5 4.0-11.0 10 3/uL Red Blood Count 3.86 4.20-5.40 10 6/uL Hemoglobin 10.2 12.0-16.0 g/dL Hematocrit 31.3 36.0-48.0 % Mean Corpuscular Volume 81.1 81.0-99.0 fL Mean Corpuscular Hemoglobin 26.4 26.7-34.0 pg Mean Corpuscular HGB Conc 32.6 29.9-35.2 g/dL Red Cell Distribution Width 18.7 11.0-15.0 % Platelet Count 225 150-450 10 3/uL Mean Platelet Volume 12.0 9.5-13.5 fL Performing Lab: see note ML - [facility] LB PROF 14(COMP METB) Reviewed date:03/12/2024 02:48:32 PM Interpretation: Performing Lab: Notes/Report: [facility] , Sodium 134 136-145 mmol/L Potassium 4.3 3.5-5.1 mmol/L Chloride 101 98-107 mmol/L Carbon Dioxide 29.6 21.0-32.0 mmol/L Anion Gap 7.7 Glucose 126 74-106 mg/dL Blood Urea Nitrogen 44.0 7.0-18.0 mg/dL Creatinine 1.79 0.55-1.02 mg/dL Estimated GFR ( Lety 33 >=60 mL/min/1.73m 2 Estimated GFR (Non- Nadira 28 >=60 mL/min/1.73m 2 BUN Creatinine Ratio 24.6 Calcium 8.0 8.5-10.1 mg/dL Bilirubin Total 0.9 0.2-1.0 mg/dL Aspartate Amino Transferase 21 15-37 U/L Alanine Aminotransferase 34 14-59 U/L Alkaline Phosphatase 61 46-116 U/L Total Protein 4.7 6.4-8.2 g/dL Albumin Level 2.2 3.4-5.0 g/dL Globulin 2.5 Albumin Globulin Ratio 0.9 Performing Lab: see note ML - [facility] LB Manual Differential Reviewed date:03/12/2024 02:48:32 PM Interpretation: Performing Lab: Notes/Report: [facility] , Segmented Neutrophils % Manual 88.0 43.0-75.0 Band Neutrophils % 3.0 0-5 % Lymphocytes Percent Manual 4.0 20.5-60.0 % Monocytes Percent Manual 5.0 1.7-12.0 % Eosinophils Percent Manual 0.0 0.9-7.0 % Basophils Percent Manual 0.0 0.2-2.0 % Segmented Neut Absolute Manual 15.40 1.4-6.5 10 3/uL Band Neutrophils Absolute 0.5 0.0-0.3 10 3/uL Lymphocytes Absolute Manual 0.70 1.20-3.80 10 3/uL Monocytes Absolute Manual 0.87 0.30-0.80 10 3/ uL Eosinophils Absolute Manual 0.00 0.00-0.70 10 3/uL Basophils Abs Manual 0.00 0.00-0.10 10 3/uL Hypochromasia 1+ Anisocytosis 1+ Ovalocytes 1+ Performing Lab: see note ML - [facility] LB Troponin I High Sensitivity Reviewed date:03/12/2024 02:48:32 PM Interpretation: Performing Lab: Notes/Report: [facility] , Troponin I High Sensitivity 46.5 4.0-51.3 pg/m L CUT-OFF POINTS HAVE BEEN ESTABLISHED BASED ON THE FOURTH UNIVERSAL DEFINITION OF MYOCARDIAL INFARCTION. THE UPPER REFERENCE LIMIT (URL) OF TROPONIN, DEFINED THE 99TH PERCENTILE OF cTnI DISTRIBUTION IN A REFERENCE POPULATION, HAS BEEN CONFIRMED THE DECISION THRESHOLD FOR ND DIAGNOSIS. 99TH PERCENTILE = 51.4 PG/ML NOTE: HIGH-SENSITIVITY TROPONIN ASSAY IS NOT INTENDED TO BE USED IN ISOLATION BUT SHOULD BE INTERPRETED IN CONJUNCTION WITH OTHER DIAGNOSTIC AND CLINICAL INFORMATION. Performing Lab: see note ML - [facility] LB BNP Reviewed date:03/15/2024 02:11:23 PM Interpretation: Performing Lab: Notes/Report: [facility] , NT Pro B Type Natriuretic Pept 801.0 <=1800.0 pg/mL Performing Lab: see note ML - [facility] LB CBC AUTO DIFF Reviewed date:03/15/2024 02:11:23 PM Interpretation: Performing Lab: Notes/Report: [facility] , White Blood Count 18.8 4.0-11.0 10 3/uL Red Blood Count 4.30 4.20-5.40 10 6/uL Hemoglobin 11.3 12.0-16.0 g/dL Hematocrit 35.1 36.0-48.0 % Mean Corpuscular Volume 81.6 81.0-99.0 fL Mean Corpuscular Hemoglobin 26.3 26.7-34.0 pg Mean Corpuscular HGB Conc 32.2 29.9-35.2 g/dL Red Cell Distribution Width 19.2 11.0-15.0 % Platelet Count 274 150-450 10 3/uL Mean Platelet Volume 11.9 9.5-13.5 fL Performing Lab: see note ML - [facility] LB PROF 14(COMP METB) Reviewed date:03/15/2024 02:11:23 PM Interpretation: Performing Lab: Notes/Report: [facility] , Sodium 135 136-145 mmol/L Potassium 3.9 3.5-5.1 mmol/L Chloride 100 98-107 mmol/L Carbon Dioxide 27.2 21.0-32.0 mmol/L Anion Gap 11.7 Glucose 117 74-106 mg/dL Blood Urea Nitrogen 22.0 7.0-18.0 mg/dL Creatinine 1.24 0.55-1.02 mg/dL Estimated GFR ( Lety 51 >=60 mL/min/1.73m 2 Estimated GFR (Non- Nadira 42 >=60 mL/min/1.73m 2 BUN Creatinine Ratio 17.7 Calcium 7.8 8.5-10.1 mg/dL Bilirubin Total 0.4 0.2-1.0 mg/dL Aspartate Amino Transferase 21 15-37 U/L Alanine Aminotransferase 26 14-59 U/L Alkaline Phosphatase 74 46-116 U/L Total Protein 4.3 6.4-8.2 g/dL Albumin Level 1.9 3.4-5.0 g/dL Globulin 2.4 Albumin Globulin Ratio 0.8 Performing Lab: see note ML - [facility] LB Manual Differential Reviewed date:03/15/2024 02:11:23 PM Interpretation: Performing Lab: Notes/Report: [facility] , Segmented Neutrophils % Manual 74.0 43.0-75.0 Band Neutrophils % 2.0 0-5 % Lymphocytes Percent Manual 19.0 20.5-60.0 % Monocytes Percent Manual 5.0 1.7-12.0 % Eosinophils Percent Manual 0.0 0.9-7.0 % Basophils Percent Manual 0.0 0.2-2.0 % Segmented Neut Absolute Manual 13.91 1.4-6.5 10 3/uL Band Neutrophils Absolute 0.4 0.0-0.3 10 3/uL Lymphocytes Absolute Manual 3.57 1.20-3.80 10 3/uL Monocytes Absolute Manual 0.94 0.30-0.80 10 3/ uL Eosinophils Absolute Manual 0.00 0.00-0.70 10 3/uL Basophils Abs Manual 0.00 0.00-0.10 10 3/uL Poikilocytosis 1+ Tear Drop Cells 1+ Ovalocytes 1+ Performing Lab: see note ML - [facility] LB Troponin I High Sensitivity Reviewed date:03/15/2024 02:11:23 PM Interpretation: Performing Lab: Notes/Report: [facility] , Troponin I High Sensitivity 33.2 4.0-51.3 pg/m L CUT-OFF POINTS HAVE BEEN ESTABLISHED BASED ON THE FOURTH UNIVERSAL DEFINITION OF MYOCARDIAL INFARCTION. THE UPPER REFERENCE LIMIT (URL) OF TROPONIN, DEFINED THE 99TH PERCENTILE OF cTnI DISTRIBUTION IN A REFERENCE POPULATION, HAS BEEN CONFIRMED THE DECISION THRESHOLD FOR ND DIAGNOSIS. 99TH PERCENTILE = 51.4 PG/ML NOTE: HIGH-SENSITIVITY TROPONIN ASSAY IS NOT INTENDED TO BE USED IN ISOLATION BUT SHOULD BE INTERPRETED IN CONJUNCTION WITH OTHER DIAGNOSTIC AND CLINICAL INFORMATION. Performing Lab: see note ML - [facility] LB CBC AUTO DIFF Reviewed date:07/28/2024 12:51:29 PM Interpretation: Performing Lab: Notes/Report: [facility] , White Blood Count 7.6 4.0-11.0 10 3/uL Red Blood Count 4.41 4.20-5.40 10 6/uL Hemoglobin 11.9 12.0-16.0 g/dL Hematocrit 39.5 36.0-48.0 % Mean Corpuscular Volume 89.6 81.0-99.0 fL Mean Corpuscular Hemoglobin 27.0 26.7-34.0 pg Mean Corpuscular HGB Conc 30.1 29.9-35.2 g/dL Red Cell Distribution Width 13.6 11.0-15.0 % Platelet Count 300 150-450 10 3/uL Mean Platelet Volume 11.2 9.5-13.5 fL Neutrophils Percent Auto 45.4 43.0-75.0 % Lymphocytes Percent Auto 42.4 20.5-60.0 % Monocytes Percent Auto 8.3 1.7-12.0 % Eosinophils Percent Auto 2.6 0.9-7.0 % Basophils Percent Auto 0.8 0.2-2.0 % Immature Granulocytes Pct Auto 0.5 0.0-0.5 % Neutrophils Absolute Auto 3.5 1.4-6.5 10 3/uL Lymphocytes Absolute Auto 3.2 1.2-3.8 10 3/uL Monocytes Absolute Auto 0.6 0.3-0.8 10 3/uL Eosinophils Absolute Auto 0.2 0.0-0.7 10 3/uL Basophils Absolute Auto 0.1 0.0-0.1 10 3/uL Immature Granulocytes Abs Auto 0.04 0.00-0.03 10 3/uL Performing Lab: see note ML - [facility] FREE T3 Reviewed date:07/28/2024 12:51:29 PM Interpretation: Performing Lab: Notes/Report: [facility] , Free T3 2.38 2.18-3.98 pg/mL Performing Lab: see note ML - [facility] LB LIPID PROFILE Reviewed date:07/28/2024 12:51:29 PM Interpretation: Performing Lab: Notes/Report: [facility] , Triglycerides 77 <=150 mg/dL Cholesterol 193 <=200 mg/dL HDL Cholesterol 59 40-60 mg/dL > or =60 mg/dl - LOW CARDIOVASCULAR RISK <40 mg/dl - HIGH CARDIOVASCULAR RISK LDL Cholesterol Calculated 118.6 <100 mg/dl OPTIMAL 100-129 mg/dl NEAR OR ABOVE OPTIMAL 130-159 mg/dl BORDERLINE HIGH 160-189 mg/dl HIGH >190 mg/dl VERY HIGH VLDL CHOLESTEROL 15.4 Chol HDL Ratio 3.3 3.3 - 4.4 LOW RISK 4.4 - 7.1 AVERAGE RISK 7.1 - 11.0 MODERATE RISK >11.0 HIGH RISK Performing Lab: see note ML - [facility] LB PROF 14(COMP METB) Reviewed date:07/28/2024 12:51:29 PM Interpretation: Performing Lab: Notes/Report: [facility] , Sodium 143 136-145 mmol/L Potassium 3.9 3.5-5.1 mmol/L Chloride 104 98-107 mmol/L Carbon Dioxide 34.0 21.0-32.0 mmol/L Anion Gap 8.9 Glucose 94 74-106 mg/dL Blood Urea Nitrogen 11.0 7.0-18.0 mg/dL Creatinine 0.75 0.55-1.02 mg/dL Estimated GFR ( Lety >60 >=60 mL/min/1.73m 2 Estimated GFR (Non- Nadira >60 >=60 mL/min/1.73m 2 BUN Creatinine Ratio 14.7 Calcium 8.8 8.5-10.1 mg/dL Bilirubin Total 0.5 0.2-1.0 mg/dL Aspartate Amino Transferase 10 15-37 U/L Alanine Aminotransferase 12 14-59 U/L Alkaline Phosphatase 59 46-116 U/L Total Protein 6.5 6.4-8.2 g/dL Albumin Level 3.1 3.4-5.0 g/dL Globulin 3.4 Albumin Globulin Ratio 0.9 Performing Lab: see note ML - [facility] LB T4 Reviewed date:07/28/2024 12:51:29 PM Interpretation: Performing Lab: Notes/Report: [facility] , T4 Thyroxine 7.30 4.80-13.90 ug/dL Performing Lab: see note ML - [facility] LB TSH Reviewed date:07/28/2024 12:51:29 PM Interpretation: Performing Lab: Notes/Report: [facility] , Thyroid Stimulating Hormone 2.721 0.358-3.740 u IU/mL Performing Lab: see note ML - [facility] LB URIC ACID SERUM Reviewed date:07/28/2024 12:51:29 PM Interpretation: Performing Lab: Notes/Report: [facility] , Uric Acid 3.9 2.6-6.0 mg/dL Performing Lab: see note ML - [facility] LB MM tomosynthesis screening B I Reviewed date:08/03/2024 08:40:05 PM Interpretation: Performing Lab: Notes/Report: Source Facility: [facility] [place] [id number] Mammography Report Signed Patient: ILANA MOORE MR#: [id number] : 1950 Acct:[id number] Age/Sex: 74 / F ADM Date: 08/03/24 Loc: MAMMO Attending Dr: Velma Muller M.D. Ordering Physician: Velma Muller M.D. Results: Date of Service: 08/03/24 Follow Up: Procedure(s): MM tomosynthesis screening BI Accession Number(s): [id number] cc: Velma Muller M.D. Patient Name: ILANA MOORE MR#: [id number] : 1950 Exam Date: 08/03/2024 Ordering Doctor: DR VELMA MULLER . RADIOLOGY REPORT PROCEDURE: MM TOMOSYNTHESIS SCREENING BI COMPARISON: MM TOMOSYNTHESIS SCREENING BI, 05/15/2023. MG MAMM SCREEN 3D ALLEN CAD, 05/14/2022. MG MAMM ALLEN SCRN W CAD DIG, 04/09/2013. INDICATIONS: Screening Calculator Name NCI Breast Cancer Risk Assessment Tool 5 Year Breast Cancer Risk 3.50% Lifetime Breast Cancer Risk 7.50% Personal Breast Cancer No Personal Ovarian Cancer No Treatments None Family Cancers Mother with breast cancer at age 60; Aunt-maternal with liver cancer at age 67. LOCATION: [facility] BREAST COMPOSITION: There are scattered areas of fibroglandular density. FINDINGS: DIAGNOSTIC CATEGORY 1--NEGATIVE. RIGHT BREAST: No significant suspicious finding. LEFT BREAST: No significant suspicious finding. RECOMMENDATIONS: ROUTINE MAMMOGRAM AND CLINICAL EVALUATION IN 12 MONTHS. PLEASE NOTE: A NORMAL MAMMOGRAM DOES NOT EXCLUDE THE POSSIBILITY OF BREAST CANCER. A CLINICALLY SUSPICIOUS PALPABLE LUMP SHOULD BE BIOPSIED. Dictated by: Slava Fry DO on 08/03/2024 at 15:50 Approved by: Slava Fry DO on 08/03/2024 at 15:52 Dictated By: Slava Fry M.D. Signed By: 08/03/24 1553 DD/ 1552 TD/TT: Candlemaking Laborer: RENETTA CHU Reviewed date:01/03/2025 08:32:50 PM Interpretation: Performing Lab: Notes/Report: [facility] , White Blood Count 19.8 4.0-11.0 10 3/uL Red Blood Count 5.35 4.20-5.40 10 6/uL Hemoglobin 14.0 12.0-16.0 g/dL Hematocrit 44.6 36.0-48.0 % Mean Corpuscular Volume 83.4 81.0-99.0 fL Mean Corpuscular Hemoglobin 26.2 26.7-34.0 pg Mean Corpuscular HGB Conc 31.4 29.9-35.2 g/dL Red Cell Distribution Width 15.2 11.0-15.0 % Platelet Count 304 150-450 10 3/uL Mean Platelet Volume 13.0 9.5-13.5 fL Performing Lab: see note - [facility] LB PROF CHEM 8 (BAS METB) Reviewed date:01/03/2025 08:32:50 PM Interpretation: Performing Lab: Notes/Report: [facility] , Sodium 138 136-145 mmol/L Potassium 3.7 3.5-5.1 mmol/L Chloride 96 98-107 mmol/L Carbon Dioxide 28.6 21.0-32.0 mmol/L Anion Gap 17.1 Glucose 150 74-106 mg/dL Blood Urea Nitrogen 17.0 7.0-18.0 mg/dL Creatinine 0.98 0.55-1.02 mg/dL Estimated GFR ( Lety >60 >=60 mL/min/1.73m 2 Estimated GFR (Non- Nadira 55 >=60 mL/min/1.73m 2 BUN Creatinine Ratio 17.3 Calcium 9.3 8.5-10.1 mg/dL Performing Lab: see note ML - [facility] LB UA RANDOM W or MICROSCOPIC Reviewed date:01/03/2025 08:32:50 PM Interpretation: Performing Lab: Notes/Report: [facility] , Color Urine YELLOW YELLOW Clarity Urine CLEAR CLEAR Specific Orient Urine >=1.030 1.005-1.025 pH Urine 5.5 5.0-9.0 Protein Urine 30 NEG/TRACE mg/dL Glucose Urine UA NEGATIVE NEGATIVE mg/dL Bilirubin Urine MODERATE NEGATIVE Ketones Urine >=80 NEGATIVE mg/dL Blood Urine SMALL NEGATIVE Nitrite Urine NEGATIVE NEGATIVE Urobilinogen Urine 1.0 0.2-1.0 EU/dL Leukocyte Esterase Urine NEGATIVE NEGATIVE WBC Urine 0-2 NONE SEEN #/HPF RBC Urine 2-5 0-2 #/HPF Bacteria Urine TRACE NONE SEEN #/HPF Mucus Urine SMALL NONE SEEN Squamous Epithelial Cell Urine FEW NONE/RARE #/LPF Crystals Seen? None Seen None Seen #/HPF Cast Seen? SEEN NONE SEEN #/LPF Hyaline Casts Urine RARE Urine Culture Indicated NO Performing Lab: see note ML - [facility] Manual Differential Reviewed date:01/03/2025 08:32:50 PM Interpretation: Performing Lab: Notes/Report: [facility] , Segmented Neutrophils % Manual 72.0 43.0-75.0 Lymphocytes Percent Manual 20.0 20.5-60.0 % Monocytes Percent Manual 8.0 1.7-12.0 % Eosinophils Percent Manual 0.0 0.9-7.0 % Basophils Percent Manual 0.0 0.2-2.0 % Segmented Neut Absolute Manual 14.25 1.4-6.5 10 3/uL Lymphocytes Absolute Manual 3.96 1.20-3.80 10 3/uL Monocytes Absolute Manual 1.58 0.30-0.80 10 3/ uL Eosinophils Absolute Manual 0.00 0.00-0.70 10 3/uL Basophils Abs Manual 0.00 0.00-0.10 10 3/uL Performing Lab: see note ML - [facility] Troponin I High Sensitivity Reviewed date:01/03/2025 08:32:50 PM Interpretation: Performing Lab: Notes/Report: [facility] , Troponin I High Sensitivity 34.3 4.0-51.3 pg/m L CUT-OFF POINTS HAVE BEEN ESTABLISHED BASED ON THE FOURTH UNIVERSAL DEFINITION OF MYOCARDIAL INFARCTION. THE UPPER REFERENCE LIMIT (URL) OF TROPONIN, DEFINED THE 99TH PERCENTILE OF cTnI DISTRIBUTION IN A REFERENCE POPULATION, HAS BEEN CONFIRMED THE DECISION THRESHOLD FOR ND DIAGNOSIS. 99TH PERCENTILE = 51.4 PG/ML NOTE: HIGH-SENSITIVITY TROPONIN ASSAY IS NOT INTENDED TO BE USED IN ISOLATION BUT SHOULD BE INTERPRETED IN CONJUNCTION WITH OTHER DIAGNOSTIC AND CLINICAL INFORMATION. Performing Lab: see note ML - [facility] Urine Culture - [facility] [place] Reviewed date:01/03/2025 08:32:51 PM Interpretation: Performing Lab: Notes/Report: [facility] , Urine Culture - [facility] [place] See Below For Report Urine Culture - [facility] [place] PEND Pending - Specimen sent to [facility]^Pending - Specimen sent to [facility] Performing Lab: see note ML - [facility] LB ECG 12 lead Reviewed date:01/03/2025 08:32:51 PM Interpretation: Performing Lab: Notes/Report: Source Facility: [place] [address] [place] [address] Electrocardiograph Report Signed Patient: ILANA MOORE MR#: [id number] : 1950 Acct:[id number] Age/Sex: 74 / F ADM Date: 01/03/25 Loc: ER Attending Dr: Ordering Physician: Jane Mckinley M.D. 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 Measurements Intervals [place] Rate: 146 P: -20033 IL: -04390 QRS: 58 QRSD: 78 T: 43 QT: 290 QTc: 374 Interpretive Statements 96683 Atrial fibrillation with rapid ventricular response [address] depression, probably digitalis effect 9150 abnormal ECG Compared to ECG 03/11/2024 12:51:24 ST (T wave) deviation now present Sinus tachycardia no longer present Myocardial infarct finding no longer present Electronically Signed On 01-03-2025 14:32:53 EDT by CARRIE BRADY M.D. Dictated By: CARRIE BRADY Signed By: 01/03/25 1433 DD/ 1253 TD/TT: Candlemaking Laborer: TERRY bryant 1V Reviewed date:01/03/2025 08:32:51 PM Interpretation: Performing Lab: Notes/Report: Source Facility: [facility]-[address] [place] [address] [place] [address] XRay Report Signed Patient: ILANA MOORE MR#: [id number] : 1950 Acct:[id number] Age/Sex: 74 / F ADM Date: 01/03/25 Loc: ER Attending Dr: Ordering Physician: Jane Mckinley M.D. Date of Service: 01/03/25 Procedure(s): XR chest 1V Accession Number(s): [id number] cc: Velma Muller M.D.; Jane Mckinley M.D. The [address] [address] Patient Name: ILANA MOORE MRN: [id number] date: 1950 Sex: F Assigned Patient Location: ER Current Patient Location: ER Accession/Order Number: [id number] Exam Date: 01/03/2025 13:30 Report Date: 01/03/2025 14:00 At the request of: JANE MCKINLEY MD Procedure: XR chest 1V PA CHEST: CLINICAL HISTORY: SOB COMPARISON: 03/11/2024 Enlarged cardiomediastinal silhouette. Similar appearance of the mediastinal contours. Hazy bibasilar opacities trace blunting costophrenic angles. XR/XR chest 1V IMPRESSION: STABLE CHRONIC FINDINGS INCLUDING CARDIOMEGALY AND LIKELY UNDERLYING EMPHYSEMA. TRACE BLUNTING BOTH COSTOPHRENIC ANGLES WITH LIKELY MILD BIBASILAR ATELECTASIS. Impression dictated by: Jignesh Jaime M.D. 01/03/2025 2:00 PM Dictation Location: [place] [address] Electronically authenticated by: [id number] Y Date: 01/03/2025 14:00 Dictated By: Jignesh Jaime M.D. Signed By: 01/03/25 1403 DD/ 99 TD/TT: Candlemaking Laborer: Troponin I High Sensitivity Reviewed date:01/03/2025 08:32:50 PM Interpretation: Performing Lab: Notes/Report: [facility] , Troponin I High Sensitivity 36.6 4.0-51.3 pg/m L CUT-OFF POINTS HAVE BEEN ESTABLISHED BASED ON THE FOURTH UNIVERSAL DEFINITION OF MYOCARDIAL INFARCTION. THE UPPER REFERENCE LIMIT (URL) OF TROPONIN, DEFINED THE 99TH PERCENTILE OF cTnI DISTRIBUTION IN A REFERENCE POPULATION, HAS BEEN CONFIRMED THE DECISION THRESHOLD FOR ND DIAGNOSIS. 99TH PERCENTILE = 51.4 PG/ML NOTE: HIGH-SENSITIVITY TROPONIN ASSAY IS NOT INTENDED TO BE USED IN ISOLATION BUT SHOULD BE INTERPRETED IN CONJUNCTION WITH OTHER DIAGNOSTIC AND CLINICAL INFORMATION. Performing Lab: see note ML - [facility] LB ECG 12 lead Reviewed date:01/03/2025 08:32:50 PM Interpretation: Performing Lab: Notes/Report: Source Facility: [place] [address] Electrocardiograph Report Signed Patient: ILANA MOORE MR#: [id number] : 1950 Acct:[id number] Age/Sex: 74 / F ADM Date: 01/03/25 Loc: [place] [address]: LUIS FELIPE DIAZ M.D. Ordering Physician: Selvin Anguiano M.D. 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 Measurements Intervals [place] Rate: 104 P: -41494 IL: -52451 QRS: 56 QRSD: 80 T: 56 QT: 316 QTc: 376 Interpretive Statements 66994 Atrial fibrillation with rapid ventricular response 9140 abnormal rhythm ECG Compared to ECG 01/03/2025 12:53:03 ST (T wave) deviation no longer present Electronically Signed On 01-03-2025 19:37:13 EDT by CARRIE BRADY M.D. Dictated By: CARRIE BRADY Signed By: 01/03/251936 DD/ 1320 TD/TT: Candlemaking Laborer: ECG 12 lead Reviewed date:01/03/2025 08:32:50 PM Interpretation: Performing Lab: Notes/Report: Source Facility: [facility] [place] [address] [place] [address] Electrocardiograph Report Signed Patient: ILANA MOORE MR#: [id number] : 1950 Acct:[id number] Age/Sex: 74 / F ADM Date: 01/03/25 Loc: [place] 221- Attending Dr: LUIS FELIPE DIAZ M.D. Ordering Physician: Selvin Anguiano M.D. 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 Measurements Intervals [place] Rate: 85 P: 50 IL: 132 QRS: 42 QRSD: 82 T: 60 QT: 348 QTc: 390 Interpretive Statements 1100 Sinus rhythm 9110 normal ECG Compared to ECG 01/03/2025 13:20:11 Atrial fibrillation no longer present Electronically Signed On 01-03-2025 19:37:46 EDT by CARRIE BRADY M.D. Dictated By: CARRIE BRADY Signed By: 01/03/251937 DD/ 01 TD/TT: Candlemaking Laborer: CBC AUTO DIFF Reviewed date:01/04/2025 12:38:26 PM Interpretation: Performing Lab: Notes/Report: [facility] , White Blood Count 20.5 4.0-11.0 10 3/uL Red Blood Count 4.86 4.20-5.40 10 6/uL Hemoglobin 12.7 12.0-16.0 g/dL Hematocrit 40.3 36.0-48.0 % Mean Corpuscular Volume 82.9 81.0-99.0 fL Mean Corpuscular Hemoglobin 26.1 26.7-34.0 pg Mean Corpuscular HGB Conc 31.5 29.9-35.2 g/dL Red Cell Distribution Width 15.3 11.0-15.0 % Platelet Count 307 150-450 10 3/uL Mean Platelet Volume 12.0 9.5-13.5 fL Neutrophils Percent Auto 79.4 43.0-75.0 % Lymphocytes Percent Auto 9.6 20.5-60.0 % Monocytes Percent Auto 9.5 1.7-12.0 % Eosinophils Percent Auto 0.0 0.9-7.0 % Basophils Percent Auto 0.4 0.2-2.0 % Immature Granulocytes Pct Auto 1.1 0.0-0.5 % Neutrophils Absolute Auto 16.3 1.4-6.5 10 3/uL Lymphocytes Absolute Auto 2.0 1.2-3.8 10 3/uL Monocytes Absolute Auto 1.9 0.3-0.8 10 3/uL Eosinophils Absolute Auto 0.0 0.0-0.7 10 3/uL Basophils Absolute Auto 0.1 0.0-0.1 10 3/uL Immature Granulocytes Abs Auto 0.22 0.00-0.03 10 3/uL Performing Lab: see note ML - [facility] LB INFLUENZA A AND B AG Reviewed date:01/04/2025 12:57:36 PM Interpretation: Performing Lab: Notes/Report: [facility] , Influenza Virus A Antigen Negative Negative for Flu A protein antigen. Infection due to Flu A cannot be ruled out. Flu A antigen in the sample may be below the detection limit of the test. Influenza Virus B Antigen Negative Negative for Flu B protein antigen. Infection due to Flu B cannot be ruled out. Flu B antigen in the sample may be below the detection limit of the test. Performing Lab: see note ML - The [facility] LB LIPID PROFILE Reviewed date:01/04/2025 12:38:27 PM Interpretation: Performing Lab: Notes/Report: [facility] , Triglycerides 102 <=150 mg/dL Cholesterol 182 <=200 mg/dL HDL Cholesterol 53 40-60 mg/dL > or =60 mg/dl - LOW CARDIOVASCULAR RISK <40 mg/dl - HIGH CARDIOVASCULAR RISK LDL Cholesterol Calculated 108.6 <100 mg/dl OPTIMAL 100-129 mg/dl NEAR OR ABOVE OPTIMAL 130-159 mg/dl BORDERLINE HIGH 160-189 mg/dl HIGH >190 mg/dl VERY HIGH VLDL CHOLESTEROL 20.4 Chol HDL Ratio 3.4 3.3 - 4.4 LOW RISK 4.4 - 7.1 AVERAGE RISK 7.1 - 11.0 MODERATE RISK >11.0 HIGH RISK Performing Lab: see note ML - [facility] LB MAGNESIUM Reviewed date:01/04/2025 12:38:27 PM Interpretation: Performing Lab: Notes/Report: [facility] , Magnesium 2.2 1.8-2.4 mg/dL Performing Lab: see note - [facility] PROF 14(COMP METB) Reviewed date:01/04/2025 12:38:27 PM Interpretation: Performing Lab: Notes/Report: [facility] , Sodium 135 136-145 mmol/L Potassium 4.1 3.5-5.1 mmol/L Chloride 98 98-107 mmol/L Carbon Dioxide 25.3 21.0-32.0 mmol/L Anion Gap 15.8 Glucose 112 74-106 mg/dL Blood Urea Nitrogen 31.0 7.0-18.0 mg/dL Creatinine 0.91 0.55-1.02 mg/dL Estimated GFR ( Lety >60 >=60 mL/min/1.73m 2 Estimated GFR (Non- Nadira >60 >=60 mL/min/1.73m 2 BUN Creatinine Ratio 34.1 Calcium 8.8 8.5-10.1 mg/dL Bilirubin Total 0.7 0.2-1.0 mg/dL Aspartate Amino Transferase 15 15-37 U/L Alanine Aminotransferase 18 14-59 U/L Alkaline Phosphatase 81 46-116 U/L Total Protein 7.5 6.4-8.2 g/dL Albumin Level 2.5 3.4-5.0 g/dL Globulin 5.0 Albumin Globulin Ratio 0.5 Performing Lab: see note ML - The [facility] LB RSV Reviewed date:01/04/2025 12:57:36 PM Interpretation: Performing Lab: Notes/Report: [facility] , Respiratory Syncytial Virus Not Detected NOT DETECTE Performing Lab: see note - [facility] LB TSH Reviewed date:01/04/2025 02:03:11 PM Interpretation: Performing Lab: Notes/Report: Comment add on to morning labs [facility] , Thyroid Stimulating Hormone 1.176 0.358-3.740 u IU/mL Performing Lab: see note ML - The [facility] LB SARS-CoV-2 Ag* Reviewed date:01/04/2025 12:57:36 PM Interpretation: Performing Lab: Notes/Report: [facility] , SARS-CoV-2 Ag NEGATIVE NEGATIVE This test has not been FDA cleared or approved, but has been authorized by the FDA under an Emergency Use Authorization (EUA) for use by authorized laboratories certified under CLIA that meet the requirements to perform moderate or high complexity testing. This test has been authorized only for the detection of proteins from SARS-CoV-2, not for any other viruses or pathogens. The emergency use of this test is authorized for the duration of the declaration that circumstances exist justifying the authorization of emergency use of in vitro diagnostic tests for detection and/or diagnosis of Covid-19 under section 564(b)(1) of the Act, 21 U.S.C. 360bbb-3(b)(1), unless the declaration is terminated or authorization is revoked sooner. Performing Lab: see note ML - The [facility] CA echo doppler complete (No t yet reviewed by provider) Interpretation: Performing Lab: Notes/Report: Source Facility: [facility]-[address] [place] [address] [place] [address] Cardiology Report Signed Patient: ILANA MOORE MR#: [id number] : 1950 Acct:[id number] Age/Sex: 74 / F ADM Date: 01/03/25 Loc: [place] 221-[address]: LUIS FELIPE DIAZ M.D. Ordering Physician: Selvin Anguiano M.D. Date of Service: 01/04/25 Procedure(s): CA echo doppler complete Accession Number(s): [id number] cc: Velma Muller M.D.; Selvin Anguiano M.D. Patient Name: ILANA MOORE MR#: [id number] : 1950 Exam Date: 01/04/2025 Ordering Doctor: SELVIN ANGUIANO ECHOCARDIOGRAM REPORT PROCEDURE: CA ECHO DOPPLER COMPLETE INDICATIONS: A fib COMPARISON: None. DESCRIPTION: COMPLETE ECHOCARDIOGRAM Real-time transthoracic echocardiography with 2D, M-mode, spectral and color flow Doppler performed. QUALITY: Technical quality was adequate. LEFT VENTRICLE: Normal chamber size. Mild concentric left ventricular hypertrophy. Global left ventricular systolic function is normal. LV EF: Estimated left ventricular ejection fraction is 60%. DIASTOLIC: Diastolic function is indeterminate. ATRIAL SEPTUM: LEFT ATRIUM: Normal chamber size. RIGHT ATRIUM: Normal chamber size. RIGHT VENTRICLE: Normal chamber size. Normal right ventricular systolic function. TRICUSPID VALVE: Normal mobility and thickness. No stenosis with mild regurgitation. Mild pulmonary hypertension. RVSP 37 mmHg. MITRAL VALVE: Mildly thickened with normal mobility. No evidence of mitral valve stenosis. Mild mitral annular calcification. Trivial mitral regurgitation. AORTIC VALVE: Normal trileaflet appearance. Thickened aortic valve. Normal leaflet mobility. No evidence of aortic valve stenosis. No aortic regurgitation. AORTIC ROOT: Normal diameter and appearance, measuring 2.8 cm. PULMONIC VALVE: Normal thickness and mobility. No stenosis. Trivial regurgitation. PERICARDIUM: No evidence of pericardial effusion. IVC: Collapses with inspiration. Normal size. PLEURA: CONCLUSION: 1. Mild concentric left ventricular hypertrophy with normal systolic function. Estimated LVEF is 60%. 2. Normal right ventricular size and systolic function. 3. Mild tricuspid regurgitation. 4. Mildly elevated right-sided pressures. Adult Echocardiography Procedure Report Left Ventricle LVEDD (3.7 - 5.6 cm): 4.05 cm LVESD (2.2 - 4.0 cm): 2.56 cm LVIVS thickness (0.6 - 1.2 cm): 1.28 cm LVPW thickness (0.5 - 1.0 cm): 1.06 cm e': 0.06 m/s E - e': 8.88 LVOT Max Gradient: 4.54 mm[Hg] LVOT Area (cm2): 1.07 m/s Peak Velocity (LVOT): 1.07 m/s Mean Velocity (LVOT): 0.69 m/s LVOT Diameter 1.74 cm Left Ventricular Ejection Fraction: 60 % Left Atrium LA Volume Index (2D A2C): 27.80 ml/m2 Left Atrium Systolic Dimension: 2.75 cm Mitral Valve MV E to A Ratio: 0.80 Mitral Valve A-Wave Peak Velocity: 0.68 m/s Mitral Valve E-Wave Peak Velocity: 0.54 m/s Right Ventricle RV Internal Diastolic Dimension: 3.62 cm Aorta AO Root Diam: 2.83 cm Aortic Valve AoV Area (Peak Brandt): 1.82 cm2, 1.82 cm2 AoV Area (VTI): 2.17 cm2, 2.17 cm2 Peak Velocity(Antegrade Flow): 1.39 m/s Peak Gradient(Antegrade Flow): 7.70 mm[Hg] Mean Velocity(Antegrade Flow): 0.88 m/s Mean Gradient(Antegrade Flow): 3.79 mm[Hg] Velocity Time Integral: 23.34 cm Tricuspid Valve Peak Velocity (Regurgitant Flow): 2.93 m/s, 2.84 m/s Pulmonic Valve Peak Velocity: 0.88 m/s Peak Gradient: 2.79 mm[Hg], 3.42 mm[Hg] Right Atrium Right Atrium Systolic Pressure: 36.29 ml, 36.29 ml Dictated by: Carrie Brady M.D. on 01/04/2025 at 16:03 Approved by: Carrie Brady M.D. on 01/04/2025 at 16:06 Dictated By: CARRIE BRADY Signed By: 01/04/25 1608 DD/ 1607 TD/TT: Candlemaking Laborer: ECG 12 lead Reviewed date:01/04/2025 12:38:27 PM Interpretation: Performing Lab: Notes/Report: Source Facility: [place] [address] [place] [address] Electrocardiograph Report Signed Patient: ILANA MOORE MR#: [id number] : 1950 Acct:[id number] Age/Sex: 74 / F ADM Date: 01/03/25 Loc: [place] 221- Attending Dr: LUIS FELIPE DIAZ M.D. Ordering Physician: Selvin Anguiano M.D. 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 Measurements Intervals [place] Rate: 85 P: 47 IL: 132 QRS: 22 QRSD: 84 T: 54 QT: 344 QTc: 387 Interpretive Statements 1100 Sinus rhythm 9110 normal ECG Compared to ECG 01/03/2025 17:02:01 No significant changes Electronically Signed On 01-04-2025 6:10:33 EDT by CARRIE BRADY M.D. Dictated By: CARRIE BRADY Signed By: 01/04/25 0611 DD/ 0447 TD/TT: Candlemaking Laborer: GLYCOHEMOGLOBIN A1C Reviewed date:07/28/2024 12:55:06 PM Interpretation: Performing Lab: Notes/Report: [facility] , Glycohemoglobin A1C 6.1 4.5-6.2 % ADA RECOMMENDED LIMIT 4.0 - 6.0 ADA THERAPEUTIC TARGET < 7.0 ACTION SUGGESTED > 7.0 Estimated Average Glucose 128 Performing Lab: see note ML - The [facility] LB Troponin I High Sensitivity Reviewed date:03/13/2024 12:55:27 PM Interpretation: Performing Lab: Notes/Report: [facility] , Troponin I High Sensitivity 37.6 4.0-51.3 pg/m L CUT-OFF POINTS HAVE BEEN ESTABLISHED BASED ON THE FOURTH UNIVERSAL DEFINITION OF MYOCARDIAL INFARCTION. THE UPPER REFERENCE LIMIT (URL) OF TROPONIN, DEFINED THE 99TH PERCENTILE OF cTnI DISTRIBUTION IN A REFERENCE POPULATION, HAS BEEN CONFIRMED THE DECISION THRESHOLD FOR ND DIAGNOSIS. 99TH PERCENTILE = 51.4 PG/ML NOTE: HIGH-SENSITIVITY TROPONIN ASSAY IS NOT INTENDED TO BE USED IN ISOLATION BUT SHOULD BE INTERPRETED IN CONJUNCTION WITH OTHER DIAGNOSTIC AND CLINICAL INFORMATION. Performing Lab: see note ML - The [facility] LB Manual Differential Reviewed date:03/13/2024 12:55:27 PM Interpretation: Performing Lab: Notes/Report: [facility] , Segmented Neutrophils % Manual 80.0 43.0-75.0 Band Neutrophils % 5.0 0-5 % Lymphocytes Percent Manual 7.0 20.5-60.0 % Monocytes Percent Manual 6.0 1.7-12.0 % Eosinophils Percent Manual 0.0 0.9-7.0 % Basophils Percent Manual 0.0 0.2-2.0 % Metamyelocytes % 2.0 Segmented Neut Absolute Manual 13.20 1.4-6.5 10 3/uL Band Neutrophils Absolute 0.8 0.0-0.3 10 3/uL Lymphocytes Absolute Manual 1.15 1.20-3.80 10 3/uL Monocytes Absolute Manual 0.99 0.30-0.80 10 3/ uL Eosinophils Absolute Manual 0.00 0.00-0.70 10 3/uL Basophils Abs Manual 0.00 0.00-0.10 10 3/uL Metamyelocytes Absolute Manual 0.33 Performing Lab: see note ML - [facility] LB PROF 14(COMP METB) Reviewed date:03/13/2024 12:55:27 PM Interpretation: Performing Lab: Notes/Report: [facility] , Sodium 135 136-145 mmol/L Potassium 3.9 3.5-5.1 mmol/L Chloride 103 98-107 mmol/L Carbon Dioxide 28.2 21.0-32.0 mmol/L Anion Gap 7.7 Glucose 120 74-106 mg/dL Blood Urea Nitrogen 34.0 7.0-18.0 mg/dL Creatinine 1.33 0.55-1.02 mg/dL Estimated GFR ( Lety 47 >=60 mL/min/1.73m 2 Estimated GFR (Non- Nadira 39 >=60 mL/min/1.73m 2 BUN Creatinine Ratio 25.6 Calcium 7.9 8.5-10.1 mg/dL Bilirubin Total 0.6 0.2-1.0 mg/dL Aspartate Amino Transferase 16 15-37 U/L Alanine Aminotransferase 27 14-59 U/L Alkaline Phosphatase 61 46-116 U/L Total Protein 4.4 6.4-8.2 g/dL Albumin Level 1.9 3.4-5.0 g/dL Globulin 2.5 Albumin Globulin Ratio 0.8 Performing Lab: see note ML - The [facility] LB CBC AUTO DIFF Reviewed date:03/13/2024 12:55:27 PM Interpretation: Performing Lab: Notes/Report: [facility] , White Blood Count 16.5 4.0-11.0 10 3/uL Red Blood Count 4.08 4.20-5.40 10 6/uL Hemoglobin 10.7 12.0-16.0 g/dL Hematocrit 33.4 36.0-48.0 % Mean Corpuscular Volume 81.9 81.0-99.0 fL Mean Corpuscular Hemoglobin 26.2 26.7-34.0 pg Mean Corpuscular HGB Conc 32.0 29.9-35.2 g/dL Red Cell Distribution Width 19.0 11.0-15.0 % Platelet Count 228 150-450 10 3/uL Mean Platelet Volume 12.5 9.5-13.5 fL Performing Lab: see note ML - The [facility] LB BNP Reviewed date:03/13/2024 12:55:27 PM Interpretation: Performing Lab: Notes/Report: [facility] , NT Pro B Type Natriuretic Pept 749.0 <=1800.0 pg/mL Performing Lab: see note ML - The [facility] LB Troponin I High Sensitivity Reviewed date:03/11/2024 04:04:25 PM Interpretation: Performing Lab: Notes/Report: [facility] , Troponin I High Sensitivity 53.6 4.0-51.3 pg/m L RESULTS CALLED TO ROMY ARROYO AT 1600 CUT-OFF POINTS HAVE BEEN ESTABLISHED BASED ON THE FOURTH UNIVERSAL DEFINITION OF MYOCARDIAL INFARCTION. THE UPPER REFERENCE LIMIT (URL) OF TROPONIN, DEFINED THE 99TH PERCENTILE OF cTnI DISTRIBUTION IN A REFERENCE POPULATION, HAS BEEN CONFIRMED THE DECISION THRESHOLD FOR ND DIAGNOSIS. 99TH PERCENTILE = 51.4 PG/ML NOTE: HIGH-SENSITIVITY TROPONIN ASSAY IS NOT INTENDED TO BE USED IN ISOLATION BUT SHOULD BE INTERPRETED IN CONJUNCTION WITH OTHER DIAGNOSTIC AND CLINICAL INFORMATION. Performing Lab: see note ML - The [facility] LB ECG 12 lead Reviewed date:03/12/2024 02:48:32 PM Interpretation: Performing Lab: Notes/Report: Source Facility: [facility]-[address] [place] [address] [place] [address] Electrocardiograph Report Signed with Jenny Patient: ILANA MOORE MR#: [id number] : 1950 Acct:[id number] Age/Sex: 74 / F ADM Date: 03/11/24 Loc: [place] 203-[address]: Velma Muller M.D. Ordering Physician: Rice, Neda D.O. 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 Signed By: 03/11/242032 DD/ 50 TD/TT: Candlemaking Laborer: SARS-CoV-2 Ag* Reviewed date:03/11/2024 03:53:36 PM Interpretation: Performing Lab: Notes/Report: [facility] , SARS-CoV-2 Ag NEGATIVE NEGATIVE This test has not been FDA cleared or approved, but has been authorized by the FDA under an Emergency Use Authorization (EUA) for use by authorized laboratories certified under CLIA that meet the requirements to perform moderate or high complexity testing. This test has been authorized only for the detection of proteins from SARS-CoV-2, not for any other viruses or pathogens. The emergency use of this test is authorized for the duration of the declaration that circumstances exist justifying the authorization of emergency use of in vitro diagnostic tests for detection and/or diagnosis of Covid-19 under section 564(b)(1) of the Act, 21 U.S.C. 360bbb-3(b)(1), unless the declaration is terminated or authorization is revoked sooner. Performing Lab: see note ML - The [facility] LB Troponin I High Sensitivity Reviewed date:03/11/2024 03:53:35 PM Interpretation: Performing Lab: Notes/Report: [facility] , Troponin I High Sensitivity 56.5 4.0-51.3 pg/m L RESULTS CALLED TO ROMY ARROYO AT 1345 CUT-OFF POINTS HAVE BEEN ESTABLISHED BASED ON THE FOURTH UNIVERSAL DEFINITION OF MYOCARDIAL INFARCTION. THE UPPER REFERENCE LIMIT (URL) OF TROPONIN, DEFINED THE 99TH PERCENTILE OF cTnI DISTRIBUTION IN A REFERENCE POPULATION, HAS BEEN CONFIRMED THE DECISION THRESHOLD FOR ND DIAGNOSIS. 99TH PERCENTILE = 51.4 PG/ML NOTE: HIGH-SENSITIVITY TROPONIN ASSAY IS NOT INTENDED TO BE USED IN ISOLATION BUT SHOULD BE INTERPRETED IN CONJUNCTION WITH OTHER DIAGNOSTIC AND CLINICAL INFORMATION. Performing Lab: see note ML - The [facility] LB Manual Differential Reviewed date:03/11/2024 03:53:35 PM Interpretation: Performing Lab: Notes/Report: [facility] , Segmented Neutrophils % Manual 75.0 43.0-75.0 Band Neutrophils % 6.0 0-5 % Lymphocytes Percent Manual 6.0 20.5-60.0 % Monocytes Percent Manual 7.0 1.7-12.0 % Eosinophils Percent Manual 0.0 0.9-7.0 % Basophils Percent Manual 0.0 0.2-2.0 % Metamyelocytes % 5.0 Myelocytes % Manual 1.0 Segmented Neut Absolute Manual 16.27 1.4-6.5 10 3/uL Band Neutrophils Absolute 1.3 0.0-0.3 10 3/uL Lymphocytes Absolute Manual 1.30 1.20-3.80 10 3/uL Monocytes Absolute Manual 1.51 0.30-0.80 10 3/ uL Eosinophils Absolute Manual 0.00 0.00-0.70 10 3/uL Basophils Abs Manual 0.00 0.00-0.10 10 3/uL Metamyelocytes Absolute Manual 1.08 Myelocytes Absolute Manual 0.21 Performing Lab: see note ML - [facility] LB Prothrombin Time INR Reviewed date:03/11/2024 03:53:35 PM Interpretation: Performing Lab: Notes/Report: [facility] , Prothrombin Time 11.0 9.0-11.6 sec INR 1.04 DESIRED INR: 2.0-3.0 CONDITIONS NOT LISTED BELOW 2.5-3.5 FOR PROSTHETIC HEART VALVE REPLACEMENT 2.5-3.5 RECURRENT THROMBOSIS Performing Lab: see note - [facility] TSH Reviewed date:03/12/2024 02:48:32 PM Interpretation: Performing Lab: Notes/Report: [facility] , Thyroid Stimulating Hormone 7.186 0.358-3.740 u IU/mL Performing Lab: see note - [facility] T4 Reviewed date:03/12/2024 02:48:32 PM Interpretation: Performing Lab: Notes/Report: [facility] , T4 Thyroxine 9.00 4.80-13.90 ug/dL Performing Lab: see note - [facility] PROF 14(COMP METB) Reviewed date:03/11/2024 03:53:35 PM Interpretation: Performing Lab: Notes/Report: [facility] , Sodium 131 136-145 mmol/L Potassium 4.7 3.5-5.1 mmol/L Chloride 96 98-107 mmol/L Carbon Dioxide 27.2 21.0-32.0 mmol/L Anion Gap 12.5 Glucose 144 74-106 mg/dL Blood Urea Nitrogen 50.0 7.0-18.0 mg/dL Creatinine 2.31 0.55-1.02 mg/dL Estimated GFR ( Lety 25 >=60 mL/min/1.73m 2 Estimated GFR (Non- Nadira 21 >=60 mL/min/1.73m 2 BUN Creatinine Ratio 21.6 Calcium 9.1 8.5-10.1 mg/dL Bilirubin Total 1.0 0.2-1.0 mg/dL Aspartate Amino Transferase 21 15-37 U/L Alanine Aminotransferase 47 14-59 U/L Alkaline Phosphatase 83 46-116 U/L Total Protein 6.3 6.4-8.2 g/dL Albumin Level 3.2 3.4-5.0 g/dL Globulin 3.1 Albumin Globulin Ratio 1.0 Performing Lab: see note ML - [facility] LB MAGNESIUM Reviewed date:03/12/2024 02:48:32 PM Interpretation: Performing Lab: Notes/Report: [facility] , Magnesium 2.3 1.8-2.4 mg/dL Performing Lab: see note ML - [facility] LB LACTATE or LACTIC ACID Reviewed date:03/11/2024 03:53:35 PM Interpretation: Performing Lab: Notes/Report: [facility] , Lactate/Lactic Acid 1.9 0.4-2.0 mmol/L Performing Lab: see note ML - [facility] FREE T3 Reviewed date:03/12/2024 02:48:32 PM Interpretation: Performing Lab: Notes/Report: [facility] , Free T3 2.64 2.18-3.98 pg/mL Performing Lab: see note ML - [facility] BNP Reviewed date:03/11/2024 03:53:35 PM Interpretation: Performing Lab: Notes/Report: [facility] , NT Pro B Type Natriuretic Pept 1719.0 <=1800.0 pg/mL Performing Lab: see note ML - [facility] LB Troponin I High Sensitivity Reviewed date:03/01/2024 06:07:27 PM Interpretation: Performing Lab: Notes/Report: [facility] , Troponin I High Sensitivity 44.5 4.0-51.3 pg/m L CUT-OFF POINTS HAVE BEEN ESTABLISHED BASED ON THE FOURTH UNIVERSAL DEFINITION OF MYOCARDIAL INFARCTION. THE UPPER REFERENCE LIMIT (URL) OF TROPONIN, DEFINED THE 99TH PERCENTILE OF cTnI DISTRIBUTION IN A REFERENCE POPULATION, HAS BEEN CONFIRMED THE DECISION THRESHOLD FOR ND DIAGNOSIS. 99TH PERCENTILE = 51.4 PG/ML NOTE: HIGH-SENSITIVITY TROPONIN ASSAY IS NOT INTENDED TO BE USED IN ISOLATION BUT SHOULD BE INTERPRETED IN CONJUNCTION WITH OTHER DIAGNOSTIC AND CLINICAL INFORMATION. Performing Lab: see note ML - [facility] US venous doppler LE BI Reviewed date:02/25/2024 08:30:00 PM Interpretation: Performing Lab: Notes/Report: Source Facility: [facility] [address] [address] Ultrasound Report Signed Patient: ILANA MOORE MR#: [id number] : 1950 Acct:[id number] Age/Sex: 74 / F ADM Date: 02/24/24 Loc: [facility] Attending Dr: Velma Muller M.D. Ordering Physician: Velma Muller M.D. Date of Service: 02/24/24 Procedure(s): US venous doppler LE BI Accession Number(s): [id number] cc: Velma Muller M.D. [place] [address] Patient Name: ILANA MOORE MRN: [id number] date: 1950 Sex: F Assigned Patient Location: [facility] Current Patient Location: Accession/Order Number: [id number] Exam Date: 02/24/2024 11:30 Report Date: 02/25/2024 04:46 At the request of: VELMA MULLER Procedure: US venous doppler LE BI EXAMINATION: US venous doppler LE BI HISTORY: EDEMA COMPARISON: No relevant comparison available. FINDINGS: REGION: Bilateral lower extremities THROMBI: None. COMPRESSIBILITY: Normal compressibility. FLOW: Normal waveform and antegrade flow between 5 and 20 cm/s. OTHER: Subcutaneous edema. US/US venous doppler LE BI IMPRESSION: 1. No deep vein thrombus within the right or left lower extremity. 2. Evaluation of calf veins is slightly limited due to prominent subcutaneous edema. Electronically authenticated by: PAUL PRIETO Date: 02/25/2024 04:46 Dictated By: Paul Prieto M.D. Signed By: 02/25/24448 DD/ 5 TD/TT: Candlemaking Laborer: Manual Differential Reviewed date:02/17/2024 02:06:27 PM Interpretation: Performing Lab: Notes/Report: [facility] , Segmented Neutrophils % Manual 76.0 43.0-75.0 Band Neutrophils % 1.0 0-5 % Lymphocytes Percent Manual 11.0 20.5-60.0 % Monocytes Percent Manual 12.0 1.7-12.0 % Eosinophils Percent Manual 0.0 0.9-7.0 % Basophils Percent Manual 0.0 0.2-2.0 % Segmented Neut Absolute Manual 7.75 1.4-6.5 10 3/uL Band Neutrophils Absolute 0.1 0.0-0.3 10 3/uL Lymphocytes Absolute Manual 1.12 1.20-3.80 10 3/uL Monocytes Absolute Manual 1.22 0.30-0.80 10 3/ uL Eosinophils Absolute Manual 0.00 0.00-0.70 10 3/uL Basophils Abs Manual 0.00 0.00-0.10 10 3/uL Performing Lab: see note ML - [facility] LB PROF 14(COMP METB) Reviewed date:02/17/2024 02:06:27 PM Interpretation: Performing Lab: Notes/Report: [facility] , Sodium 142 136-145 mmol/L Potassium 3.9 3.5-5.1 mmol/L Chloride 109 98-107 mmol/L Carbon Dioxide 24.8 21.0-32.0 mmol/L Anion Gap 12.1 Glucose 137 74-106 mg/dL Blood Urea Nitrogen 19.0 7.0-18.0 mg/dL Creatinine 1.21 0.55-1.02 mg/dL Estimated GFR ( Lety 53 >=60 mL/min/1.73m 2 Estimated GFR (Non- Nadira 43 >=60 mL/min/1.73m 2 BUN Creatinine Ratio 15.7 Calcium 7.9 8.5-10.1 mg/dL Bilirubin Total 0.4 0.2-1.0 mg/dL Aspartate Amino Transferase 13 15-37 U/L Alanine Aminotransferase 20 14-59 U/L Alkaline Phosphatase 70 46-116 U/L Total Protein 4.5 6.4-8.2 g/dL Albumin Level 2.2 3.4-5.0 g/dL Globulin 2.3 Albumin Globulin Ratio 1.0 Performing Lab: see note ML - [facility] LB MAGNESIUM Reviewed date:02/17/2024 02:06:27 PM Interpretation: Performing Lab: Notes/Report: [facility] , Magnesium 2.3 1.8-2.4 mg/dL Performing Lab: see note - [facility] LB CBC AUTO DIFF Reviewed date:02/17/2024 02:06:27 PM Interpretation: Performing Lab: Notes/Report: [facility] , White Blood Count 10.2 4.0-11.0 10 3/uL Red Blood Count 3.65 4.20-5.40 10 6/uL Hemoglobin 9.5 12.0-16.0 g/dL Hematocrit 29.3 36.0-48.0 % Mean Corpuscular Volume 80.3 81.0-99.0 fL Mean Corpuscular Hemoglobin 26.0 26.7-34.0 pg Mean Corpuscular HGB Conc 32.4 29.9-35.2 g/dL Red Cell Distribution Width 17.2 11.0-15.0 % Platelet Count 150 150-450 10 3/uL Mean Platelet Volume 13.8 9.5-13.5 fL Performing Lab: see note ML - [facility] LB ECG 12 lead Reviewed date:02/15/2024 09:20:04 AM Interpretation: Performing Lab: Notes/Report: Source Facility: [facility] [place] [address] [place] [address] Electrocardiograph Report Signed Patient: ILANA MOORE MR#: [id number] : 1950 Acct:[id number] Age/Sex: 73 / F ADM Date: 02/13/24 Loc: [place] 219-[address]: Velma Muller M.D. Ordering Physician: Neda Bills D.O. Date of Service: 02/13/24 Procedure(s): ECG 12 lead Accession Number(s): [id number] cc: [facility] Test Date: 2024-02-13 Pat Name: ILANA MOORE Department: Room: - Gender: Female [employer]: : 1950 Requested By: VELMA MULLER Order Number: [id number] Reading MD: VELMA MULLER Measurements Intervals [place] Rate: 85 P: 69 IL: 156 QRS: 23 QRSD: 90 T: 32 QT: 352 QTc: 394 Interpretive Statements 1100 Sinus rhythm Non-Specific T wave inversion in III 9150 abnormal ECG Compared to ECG 03/09/2019 14:08:02 ST (T wave) deviation now present Possible ischemia now present Electronically Signed On 02-14-2024 7:05:07 EST by VELMA MULLER Dictated By: Velma Muller M.D. Signed By: 02/14/24 0705 DD/ 1048 TD/TT: Candlemaking Laborer: Prothrombin Time INR Reviewed date:02/13/2024 01:32:17 PM Interpretation: Performing Lab: Notes/Report: [facility] , Prothrombin Time 11.4 9.0-11.6 sec INR 1.08 DESIRED INR: 2.0-3.0 CONDITIONS NOT LISTED BELOW 2.5-3.5 FOR PROSTHETIC HEART VALVE REPLACEMENT 2.5-3.5 RECURRENT THROMBOSIS Performing Lab: see note ML - [facility] LB LACTATE or LACTIC ACID Reviewed date:02/13/2024 01:33:23 PM Interpretation: Performing Lab: Notes/Report: [facility] , Lactate/Lactic Acid 1.4 0.4-2.0 mmol/L Performing Lab: see note ML - [facility] LB Troponin I High Sensitivity Reviewed date:02/12/2024 08:26:46 PM Interpretation: Performing Lab: Notes/Report: [facility] , Troponin I High Sensitivity 44.7 4.0-51.3 pg/m L CUT-OFF POINTS HAVE BEEN ESTABLISHED BASED ON THE FOURTH UNIVERSAL DEFINITION OF MYOCARDIAL INFARCTION. THE UPPER REFERENCE LIMIT (URL) OF TROPONIN, DEFINED THE 99TH PERCENTILE OF cTnI DISTRIBUTION IN A REFERENCE POPULATION, HAS BEEN CONFIRMED THE DECISION THRESHOLD FOR ND DIAGNOSIS. 99TH PERCENTILE = 51.4 PG/ML NOTE: HIGH-SENSITIVITY TROPONIN ASSAY IS NOT INTENDED TO BE USED IN ISOLATION BUT SHOULD BE INTERPRETED IN CONJUNCTION WITH OTHER DIAGNOSTIC AND CLINICAL INFORMATION. Performing Lab: see note ML - The [facility] LB TSH Reviewed date:02/12/2024 08:26:46 PM Interpretation: Performing Lab: Notes/Report: [facility] , Thyroid Stimulating Hormone 3.746 0.358-3.740 u IU/mL Performing Lab: see note ML - [facility] LB T4 Reviewed date:02/12/2024 08:26:46 PM Interpretation: Performing Lab: Notes/Report: [facility] , T4 Thyroxine 7.30 4.80-13.90 ug/dL Performing Lab: see note ML - [facility] PROF 14(COMP METB) Reviewed date:02/12/2024 08:26:46 PM Interpretation: Performing Lab: Notes/Report: [facility] , Sodium 137 136-145 mmol/L Potassium 3.1 3.5-5.1 mmol/L Chloride 97 98-107 mmol/L Carbon Dioxide 26.3 21.0-32.0 mmol/L Anion Gap 16.8 Glucose 132 74-106 mg/dL Blood Urea Nitrogen 48.0 7.0-18.0 mg/dL Creatinine 3.50 0.55-1.02 mg/dL Estimated GFR ( Lety 15 >=60 mL/min/1.73m 2 Estimated GFR (Non- Nadira 13 >=60 mL/min/1.73m 2 BUN Creatinine Ratio 13.7 Calcium 8.5 8.5-10.1 mg/dL Bilirubin Total 0.9 0.2-1.0 mg/dL Aspartate Amino Transferase 16 15-37 U/L Alanine Aminotransferase 23 14-59 U/L Alkaline Phosphatase 76 46-116 U/L Total Protein 6.5 6.4-8.2 g/dL Albumin Level 3.5 3.4-5.0 g/dL Globulin 3.0 Albumin Globulin Ratio 1.2 Performing Lab: see note - [facility] FREE T3 Reviewed date:02/12/2024 08:26:46 PM Interpretation: Performing Lab: Notes/Report: [facility] , Free T3 1.90 2.18-3.98 pg/mL Performing Lab: see note ML - [facility] LB MAGNESIUM Reviewed date:02/12/2024 08:26:46 PM Interpretation: Performing Lab: Notes/Report: [facility] , Magnesium 1.6 1.8-2.4 mg/dL Performing Lab: see note - [facility] LB BNP Reviewed date:02/12/2024 08:26:46 PM Interpretation: Performing Lab: Notes/Report: [facility] , NT Pro B Type Natriuretic Pept 1942.0 <=900.0 pg/mL RESULTS CALLED TO LEMUEL SOLITARIO LPN AT OFFICE BY Val Au at 1358 Performing Lab: see note - [facility] LB Reason For Referral No Information Medications Medication SIG (Take, Route, Frequency, Duration) Notes Start Date End Date Status Voriconazole 200 MG 1 tablet 1 hour befo re or 1 hour after meals Orally every 12 hrs; Duration: 30 days 12/03/2024 Active Lyrica 25 MG 1 capsule Orally Onc e a day 06/12/2024 Active Albuterol Sulfate (2.5 MG/3ML) 0.083% 3 mL as needed Inhalation every 6 hrs Active oxyCODONE HCl 5 MG 1 tablet as needed O rally every 6 hrs; Duration: 30 days 01/01/2025 Active Aldactone 25 MG 1 tablet Orally; Duration: 30 day(s) 06/12/2024 Active oxyCODONE-Acetaminophen 5-325 MG 1 tablet as needed Orally every 6 hrs; Duration: 30 days 04/27/2024 Active Calcitonin ([place]) 200 UNIT/ACT USE 1 SPRAY IN ONE NOSTRIL DAILY THEN ALTERNATE BETWEEN NOSTRILS DIRECTED; Duration: 30 Active Colchicine 0.6 MG 1 capsule Orally Q d ay; Duration: 30 days 07/13/2024 Active Breo Ellipta 200-25 MCG/ACT 1 puff Inhal ation Once a day; Duration: 30 days 04/01/2023 Active Pantoprazole Sodium 40 MG 1 tablet 1/2 t o 1 hour before morning meal Orally Once a day Active Bumetanide 1 MG 1 tablet Orally Once a day; Duration: 30 days 02/24/2024 Active traMADol HCl 50 MG 1-2 tablet as needed Orally qid; Duration: 7 days 02/24/2024 Active Triamcinolone Acetonide 0.1 % 1 application Externally Twice a day; Duration: 30 08/29/2022 Active Ventolin HFA 108 (90 Base) MCG/ACT 2 puff as needed Inhalation every 4 hrs 10/15/2023 Active Ferrous Sulfate 325 (65 Fe) MG 1 tablet Orally BID; Duration: 90 days Active Vitamin D3 50 MCG (2000 UT) 1 capsule Or ally Once a day OTC Active Futuro Firm Compression Hose - 8-10 mm compression - any brand 06/12/2024 Active Hyoscyamine Sulfate 0.125 MG 1-2 tabs SL SL every 4 hrs PRN abd pain 03/06/2024 Active Immunizations Vaccine Route Administration Date Status Comme nts Abrysvo Unknown 01/05/2023 Administered ComirGroupSpaces Syringe Pre-Filled 30 mcg/0.3 mL Unknown 01/05/2023 Administered Flu, Fluad (77734) 65 yrs+, single-dose syringe ([id number]) IM Intramuscular 01/22/2023 Administered Flu, Flucelvax (36479) 6 mos and older, single-dose syringe ([id number]) IM Intramuscular 03/06/2024 Administered Pneumococcal (Prevnar 13) Unknown 10/14/2017 Administer ed SARS-COV-2 (COVID 19 Pfizer 30mcg/0.3mL) Unknown 04/27/2020 Administered SARS-COV-2 (COVID 19 Pfizer 30mcg/0.3mL) Unknown 05/18/2020 Administered SARS-COV-2 (COVID 19 Pfizer 30mcg/0.3mL) Unknown 12/27/2020 Administered SARS-COV-2 (COVID 19 Pfizer 30mcg/0.3mL), robert sucrose Unknown 07/14/2021 Administered SARS-COV-2 (COVID 19) bivalent 30 mcg/0.3 ml dose Unknown 12/07/2021 Administered Social History Tobacco Use: Social History Observation Description Date Details (start date - stop date) Never Smoker NA - NA Tobacco Use/Smoking Question Answer Notes Patient is a nonsmoker Alcohol Screen (Audit-C) Question Answer Notes Did you have a drink containing alcohol in the p ast year? No Points 0 Interpretation Negative AUDIT-C (Standard) Question Answer Notes Did you have a drink containing alcohol in the p ast year? 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) Active confirmed Problem Bandemia (853640857) Bandemia (D72.825) Active confirmed Problem Closed fracture of sternum (25064307) Fracture of body of sternum, initial encounter for closed fracture (S22.22XA) Active confirmed Problem Late effect of fracture of spine AND/OR trunk without spinal cord lesion (1162698) Wedge compression fracture of second lumbar vertebra, sequela (S32.020S) Active confirmed Problem Contusion of right knee (67028178089138892) Contusion of right knee, initial encounter (S80.01XA) Active confirmed Problem Chest pain (91075662) Chest pain (R07.9) Active confirmed Problem Chronic obstructive pulmonary disease (19671320) Chronic obstructive pulmonary disease (J44.9) Active confirmed Problem Hypertension (46755753) Hypertension (I10) Active confirmed Problem Congestive heart failure (05427806) CHF (congestive heart failure) (I50.9) Active confirmed Problem Asthma (974971468) Asthma (J45.909) Active conf irmed Problem Gastroesophageal reflux disease (004238059) GERD (gastroesophageal reflux disease) (K21.9) Active confirmed Problem Hypertension (44297457) HTN (hypertension) (I10) Active confirmed Problem Edema (60190545) Edema (R60.9) Active confirmed Problem Dyspnea (509491106) Dyspnea (R06.00) Active con firmed Problem Insomnia (651259922) Insomnia (G47.00) Active confirmed Problem Eczema (25440881) Eczema (L30.9) Active confirm ed Problem Hip pain (30829843) Hip pain (M25.559) Active c onfirmed Problem Vitamin D deficiency (75454871) Vitamin D deficiency (E55.9) Active confirmed Problem Back pain (497746872) Back pain (M54.9) Active confirmed Problem Bronchitis (78978384) Bronchitis (J40) Active confirmed Problem Arthralgia (78781875) Arthralgia (M25.50) Active confirmed Problem Neuropathy (189077260) Neuropathy (G62.9) Active confirmed Problem Acute exacerbation of chronic obstructive airways disease (169857940) COPD exacerbation (J44.1) Active confirmed Problem Osteoporosis (66832926) Osteoporosis (M81.0) Active confirmed Problem Cellulitis (002552470) Cellulitis (L03.90) Active confirmed Problem Bronchiectasis (89154734) Bronchiectasis (J47.9) Active confirmed Problem Vitamin B12 deficiency (non anemic) (55693034) B12 deficiency (E53.8) Active confirmed Problem Overweight (906061515) Over weight (E66.3) Active confirmed Problem Gastroesophageal reflux disease (916923500) GE reflux (K21.9) Active confirmed Problem 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, 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) Active confirmed Problem Chronic kidney disease stage 3 (disorder) (396776921) Chronic kidney disease, stage 3 unspecified (N18.30) Active confirmed Vital Signs Temperature 97.8 degrees Fahrenheit 01/27/2024 Oximetry 93 % 01/27/2024 Blood pressure diastolic 88 mm Hg 12/03/2024 Height 64 in 12/03/2024 Blood pressure systolic 152 mm Hg 12/03/2024 Weight 130.2 lbs 12/03/2024 BMI 22.35 kg/m2 12/03/2024 Encounters Encounter Location Date Provider Diagnosis [facility] [address] [place] [address] 12/07/2024 Avinash [facility] [address] [place] [address] 12/07/2024 Avinash [facility] [address] [place] [address] 01/01/2025 Avinash Hoy Fracture of body of sternum, initial encounter for closed fracture S22.22XA [facility] [address] [facility] [place] [place] [address] 01/04/2025 Avinash Ojeday [facility] [address] [place] [address] 08/03/2024 Avinash Muller [facility] [address] [place] [address] 08/10/2024 Avinash Hoy Neuropathy G62.9 [facility] [address] [place] [address] 09/10/2024 Avinash Hoy Neuropathy G62.9 [facility] [address] [place] [address] 10/08/2024 Avinash Hoy Neuropathy G62.9 [facility] [address] [facility] [place] [place] [address] 11/05/2024 Avinash Hoy Neuropathy G62.9 [facility] [address] [place] [address] 12/03/2024 Avinash [facility] [address] [place] [address] 05/04/2024 Avinash Hoy [facility] [address] [place] [address] 05/05/2024 Avinash Hoy [facility] [address] [place] [address] 05/07/2024 Avinash Hoy Edema R60.9 [facility] [address] [facility] [place] [address] 05/19/2024 Avinash Hoy [facility] [address] [facility] [place] [address] 07/13/2024 Avinash Hoy Neuropathy G62.9 [facility] [address] [facility] [place] [address] 07/28/2024 Avinash Hoy [facility] [address] [facility] [place] [address] 03/16/2024 Avinash Hoy Abdominal distension R14.0 [facility] [address] [facility] [place] [address] 04/03/2024 Avinash Hoy [facility] [address] [facility] [place] [address] 04/13/2024 Avinash Hoy Wedge compression fracture of second lumbar vertebra, sequela S32.020S [facility] [address] [facility] [place] [address] 04/27/2024 Avinash Hoy [facility] [address] [facility] [place] [address] 04/29/2024 Avinash Hoy Edema R60.9 [facility] [address] [facility] [place] [address] 05/01/2024 Avinash Hoy [facility] [address] [place] [address] 03/02/2024 Avinash Hoy Edema R60.9 [facility] [address] [facility] [place] [address] 03/03/2024 Avinash Hoy Edema R60.9 [facility] [address] [facility] [place] [address] 03/04/2024 Avinash Hoy [facility] [address] [place] [address] 03/09/2024 Avinash Hoy Edema R60.9 [facility] [address] [place] [address] 03/09/2024 Avinash Hoy Edema R60.9 [facility] [address] [place] [address] 03/11/2024 Avinash Hoy [facility] [address] [place] [address] 02/12/2024 Avinash Hoy [facility] [address] [place] [address] 02/12/2024 Avinash Hoy [facility] [address] [place] [address] 02/24/2024 Avinash Hoy [facility] [address] [place] [address] 02/25/2024 Avinash Hoy [facility] [address] [place] [address] 02/26/2024 Avinash Hoy Edema R60.9 [facility] [address] [facility] [place] [address] 02/27/2024 Avinash Hoy [facility] [address] [place] [address] 01/08/2024 Avinash Hoy [facility] [address] [place] [address] 01/10/2024 Avinash Hoy [facility] [address] [place] [address] 01/23/2024 Marilynn Bueno [facility] [address] [place] [address] 01/28/2024 Avinash Hoy Wedge compression fracture of second lumbar vertebra, sequela S32.020S [facility] [address] [place] [address] 01/09/2024 Avinash Hoy Productive cough R05 .8 and Fever R50.9 [facility] [address] [place] [address] 01/21/2024 Marilynn Ximena Bronchitis J40 [facility] [address] [place] [address] 02/24/2024 Avinash Hoy Edema R60.9 [facility] [address] [place] [address] 02/27/2024 Avinash Hoy Edema R60.9 [facility] [address] [place] [address] 01/10/2024 Avinash Hoy Dyspnea R06.00 [facility] [address] [place] [address] 01/23/2024 Marilynn Ximena Acute bronchitis, unspecified organism J20.9 [facility] [address] [place] [address] 01/27/2024 Avinash Hoy Acute bronchitis, unspecified organism J20.9 [facility] [address] [place] [address] 02/17/2024 Avinash Hoy Edema R60.9 [facility] [address] [place] [address] 03/06/2024 Avinash Hoy Hypertension I10 ; E shorty R60.9 ; Wedge compression fracture of second lumbar vertebra, sequela S32.020S and Encounter for immunization Z23 [facility] [address] [place] [address] 03/13/2024 Avinash Hoy Dyspnea R06.00 [facility] [address] [place] [address] 03/19/2024 Avinash Hoy [facility] [address] [place] [address] 04/27/2024 Avinash Hoy Hypertension I10 ; W edge compression fracture of second lumbar vertebra, sequela S32.020S ; GERD (gastroesophageal reflux disease) K21.9 and Chronic kidney disease, stage 3 unspecified N18.30 [facility] [address] [place] [address] 07/27/2024 Avinash Hoy Hypertension I10 ; W edge compression fracture of second lumbar vertebra, sequela S32.020S ; Asthma J45.909 ; Aspergillosis, allergic bronchopulmonary B44.81 and Chronic kidney disease, stage 3 unspecified N18.30 [facility] [address] [place] [address] 06/12/2024 Avinash Hoy Hypertension I10 ; Bronchiectasis J47.9 and Neuropathy G62.[address] [address] 12/03/2024 Avinash Hoy Fracture of body of sternum, initial encounter for closed fracture S22.22XA ; Hypertension I10 ; Asthma J45.909 and Bronchiectasis J47.9 [address] [place] [address] 02/12/2024 Avinash Hoy Chronic obstructive pulmonary disease J44.9 ; Hypertension I10 and Back pain M54.9 Assessments Encounter Date Diagnosis (ICD Code) Assessment Notes Treatment Notes Treatment Clinical Notes Section Notes 01/09/2024 Productive cough (ICD-10 - R05.8) 01/09/2024 Fever (ICD-10 - R50.9) 01/10/2024 Dyspnea (ICD-10 - R06.00) 01/21/2024 Bronchitis (ICD-10 - J40) continue to monitor sx refusing chest xray at this time fu as needed 01/23/2024 Acute bronchitis, unspecified organism (ICD-10 - J20.9) 01/27/2024 Acute bronchitis, unspecified organism (ICD-10 - J20.9) Rest and drink more liquids, especially water. You may use a humidifier or vaporizer to help keep the drainage moist. Mprx-uuc-mznqijv Nasal Saline may help the stuffy and runny nose. Use Ibuprofen and or Tylenol as needed for fever, chills, body aches or pain. Children 5 years old should not be given rapz-hjs-lwkhgiw cough and cold medications such as guaifenesin and dextromethorphan. If you're over age 5, you may try lbqh-mqy-cqxpcrc cold medications such as guaifenesin and dextromethorphan, or multi-symptom cold reliever such as Dayquil to help reduce the symptoms. Antibiotics have been prescribed. You should take these until completed and follow the directions. Antibiotics can sometimes cause upset stomach, and in rare cases, serious allergic reactions or serious gastrointestinal problems. If you start having severe abdominal pain, severe vomiting, or bloody diarrhea, you should be reevaluated by your physician or urgent care immediately. Follow up with your Primary Care Provider or return to clinic if symptoms do not improve within 3-5 days. If you develop severe symptoms such as shortness of breath, repeated vomiting, coughing up blood, or chest pain you should go to the emergency room or call 911 02/17/2024 Edema (ICD-10 - R60.9) 02/24/2024 Edema (ICD-10 - R60.9) 02/27/2024 Edema (ICD-10 - R60.9) 03/06/2024 Hypertension (ICD-10 - I10) 03/06/2024 Edema (ICD-10 - R60.9) 03/13/2024 Dyspnea (ICD-10 - R06.00) 04/27/2024 Hypertension (ICD-10 - I10) 04/27/2024 Wedge compression fracture of second lumbar vertebra, sequela (ICD-10 - S32.020S) 07/27/2024 Hypertension (ICD-10 - I10) 07/27/2024 Wedge compression fracture of second lumbar vertebra, sequela (ICD-10 - S32.020S) 02/12/2024 Chronic obstructive pulmonary disease (ICD-10 - J44.9) 02/12/2024 Hypertension (ICD-10 - I10) 06/12/2024 Hypertension (ICD-10 - I10) 06/12/2024 Bronchiectasis (ICD-10 - J47.9) 01/28/2024 Wedge compression fracture of second lumbar vertebra, sequela (ICD-10 - S32.020S) 02/26/2024 Edema (ICD-10 - R60.9) 03/02/2024 Edema (ICD-10 - R60.9) 03/03/2024 Edema (ICD-10 - R60.9) 03/09/2024 Edema (ICD-10 - R60.9) 03/09/2024 Edema (ICD-10 - R60.9) 03/16/2024 Abdominal distension (ICD-10 - R14.0) 04/13/2024 Wedge compression fracture of second lumbar vertebra, sequela (ICD-10 - S32.020S) 04/29/2024 Edema (ICD-10 - R60.9) 05/07/2024 Edema (ICD-10 - R60.9) 07/13/2024 Neuropathy (ICD-10 - G62.9) 08/10/2024 Neuropathy (ICD-10 - G62.9) 09/10/2024 Neuropathy (ICD-10 - G62.9) 10/08/2024 Neuropathy (ICD-10 - G62.9) 11/05/2024 Neuropathy (ICD-10 - G62.9) 01/01/2025 Fracture of body of sternum, initial encounter for closed fracture (ICD-10 - S22.22XA) 12/03/2024 Fracture of body of sternum, initial encounter for closed fracture (ICD-10 - S22.22XA) 12/03/2024 Hypertension (ICD-10 - I10) checking at home - not on irvasartan 12/03/2024 Asthma (ICD-10 - J45.909) 06/12/2024 Neuropathy (ICD-10 - G62.9) 02/12/2024 Back pain (ICD-10 - M54.9) 07/27/2024 Asthma (ICD-10 - J45.909) 04/27/2024 GERD (gastroesophageal reflux disease) (ICD-10 - K21.9) 04/27/2024 Chronic kidney disease, stage 3 unspecified (ICD-10 - N18.30) 07/27/2024 Aspergillosis, allergic bronchopulmonary (ICD-10 - B44.81) 12/03/2024 Bronchiectasis (ICD-10 - J47.9) 07/27/2024 Chronic kidney disease, stage 3 unspecified (ICD-10 - N18.30) 03/06/2024 Wedge compression fracture of second lumbar vertebra, sequela (ICD-10 - S32.020S) 03/06/2024 Encounter for immunization (ICD-10 - Z23) Plan Of Treatment Pending Test Test Name Order Date CMP (COMPLETE METABOLIC PANEL) 3 CMP (COMPLETE METABOLIC PANEL) 4 HEMOGLOBIN A1C (GLYCO) 02/20/2023 HEMOGLOBIN A1C (GLYCO) 07/27/2024 INSULIN, TOTAL 02/20/2023 IRON, TOTAL 02/12/2024 LIPID PANEL (CHOL/TRIG/HDL/LDL) 02/21/20 LIPID PANEL (CHOL/TRIG/HDL/LDL) 07/28/19 25 CBC WITH DIFF 02/20/2023 CBC WITH DIFF 02/12/2024 URIC ACID 02/20/2023 URIC ACID 07/27/2024 MAMM Mammograms CAD 02/20/2023 XR Abdomen KUB 1 View 03/16/2024 High Sensitivity Troponin 02/12/2024 STOOL OCCULT BLOOD 02/20/2023 VIT B12 AND FOLATE 02/20/2023 US DENTON DOP LEG LT 02/24/2024 US DENTON DOP LEG RT 02/24/2024 XR CHEST 2 V 02/12/2024 THYROID PANEL (T4/TSH/FREE T3) 4 THYROID PANEL (T4/TSH/FREE T3) 3 THYROID PANEL (T4/TSH/FREE T3) 5 MM screening mammo BI 07/27/2024 CA echo doppler complete 01/04/2025 CMP (COMP MET HALL) w/eGFR CKD-EPI 2024 CBC WITH DIFF 07/27/2024 Next Appt Details Provider Name:Avinash Muller, 10:45:00 AM, [address] [place], [address], Insurance Providers Payer Name Payer Address Payer Phone Subscriber Number Group Number Insured Name Patient Relationship to Insured Coverage Start Date Coverage End Date [place]IC[place] [address] [place] [address] [id number] Ilana Moore Self - patient is the insured 9 [employer] [address] [place] [id number] PLAN G Ilana Moore Self - patient is the insured 4 Medications Administered Medication Instructions Date of Administration Dosage Notes Dexamethasone, 4mg/mL 11/06/2023 12 mg 12 mg Triamcinolone 40 mg/ml 01/09/2024 120 mg Triamcinolone 40 mg/ml 01/10/2024 80 mg Triamcinolone 40 mg/ml 01/21/2024 80 mg Triamcinolone 40 mg/ml 01/23/2024 80 mg Triamcinolone 40 mg/ml 01/27/2024 120 mg Medical (General) History Medical History History ICD Code Over weight E66.3 Cellulitis L03.90 Contusion of right knee, initial encount er S80.01XA Wedge compression fracture of second lum bar vertebra, sequela S32.020S Back pain M54.9 Insomnia G47.00 Chest pain R07.9 B12 deficiency E53.8 Vitamin D deficiency E55.9 Fracture of body of sternum, initial enc ounter for closed fracture S22.22XA Bronchitis J40 Arthralgia M25.50 Osteoporosis M81.0 Hip pain M25.559 Eczema L30.9 Hypertension I10 Chronic obstructive pulmonary disease J4 4.9 Asthma J45.909 GE reflux K21.9 Dyspnea R06.00 Aspergillosis, allergic bronchopulmonary B44.81 Bronchiectasis J47.9 Surgical History Surgery Date(Month/Year) Lumpectomy Hernia Repair Excisional biopsy of right ear- Dr. Cleary 09/18/2023 left hip surgery with pins right hip replacement Gallbladder Cataract removed Appendectomy Hospitalization History Reason Date(Month/Year) breathing 02/15 see above
--- OUTSIDE RECORDS SUMMARY | 2025-01-04 16:19 | XMS_ITS | Clinical Summary ---
Author Organization [facility] Address [id number] [place] [address] Care Team Providers Care Electrical Continuity Tester Name Role Phone Zack Muller MD Primary Care Provider [phone] Allergies No known active allergies Medications No known medications Social History Tobacco Use Types Packs/Day Years Used Date Smoking Tobacco: Never Smokeless Tobacco: Never Childcare Answer Date Recorded Childcare Unknown 09/02/2018 Employment Answer Date Recorded Employment Unknown 09/02/2018 Purpose - Life Answer Date Recorded Purpose and direction in life Unknown Comments No Sex and Gender Information Value Date Recorded Sex Assigned at Not on file Legal Sex Female 7:20 PM EDT Gender Identity Not on file Sexual Orientation Not on file Last Filed Vital Signs Vital Sign Reading Time Taken Comments Blood Pressure 125/78 11/04/2021 10:56 PM EDT Pulse 85 11/04/2021 10:56 PM EDT Temperature 36.8 C (98.2 F) 11/04/2021 10:56 PM EDT Respiratory Rate 16 11/04/2021 10:56 PM EDT Oxygen Saturation 98% 11/04/2021 10:56 PM EDT Inhaled Oxygen Concentration - - Weight 66.2 kg (146 lb) 11/04/2021 9:12 PM EDT Height 160 cm (5' 3 ) 11/04/2021 9:12 PM EDT Body Mass Index 25.86 11/04/2021 9:12 PM EDT Plan of Treatment Health Maintenance Due Date Last Done Comments Depression Screening 1961 Tobacco Screening 1961 DTaP,Tdap and Td Vaccines (1 - Tdap) 02/23/1968 Zoster (Shingles) Vaccine (1 of 2) 1999 Fall Risk Screening 2014 COVID-19 Vaccine (2024-2 6 season) 2024 07/14/2021, 12/27/2020, 05/18/2020, Additional history exists Influenza Vaccine 11/23/2024 01/04/2020, , 01/18/2016, Additional history exists Medical Devices Not on file Insurance [facility] LIFE INSUR[facility] MEDICARE Care Teams Electrical Continuity Tester Relationship Specialty Start Date End Date Zack Muller MD PCP - General 04/18/17
--- OUTSIDE RECORDS SUMMARY | 2025-01-04 16:19 | XMS_ITS | Clinical Summary ---
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8 kg (134 lb) 04/15/2019 4:18 PM EST Height 160 cm (5' 3 ) 04/15/2019 4:18 PM EST Body Mass Index 23.74 04/15/2019 4:18 PM EST Plan of Treatment Upcoming Encounters Date Type Department Care Team (Late st Contact Info) Description 02/16/2025 11:00 AM EST Office Visit [facility] [address] [place] [address] Lefty Salcedo MD [address] [place] [id number] Health Maintenance Due Date Last Done Comments CT Colonography 1949 Colonoscopy 1949 Colorectal Cancer Screening 1949 FIT-DNA 1949 FIT 1949 FOBT 1949 Sigmoidoscopy 1949 Depression Screening 1961 Pneumococcal Vaccine: 50+ Ye ars (1 of 2 - PCV) 02/23/1968 Adult Tetanus 1971 Zoster Vaccines (1 of 2) 1999 Fall Risk Screening 2014 COVID-19 Vaccine (2023-2 5 season) 2024 Influenza Vaccine (#1) 2024 HIB Vaccines Aged Out No longer eligi ble based on patient's age to complete this topic HPV Vaccines Aged Out No longer eligi ble based on patient's age to complete this topic IPV Vaccines Aged Out No longer eligi ble based on patient's age to complete this topic Meningococcal B Vaccine Aged Out No l onger eligible based on patient's age to complete this topic Meningococcal Vaccine Aged Out No pattie homero eligible based on patient's age to complete this topic Rotavirus Vaccines Aged Out No longer eligible based on patient's age to complete this topic
--- OUTSIDE RECORDS SUMMARY | 2025-01-04 16:19 | XMS_ITS | Clinical Summary ---
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 Name Role Phone Unavailable Primary Care Provider Unavailabl e Social History Tobacco Use Types Packs/Day Years Used Date Smoking Tobacco: Never Assessed Comments Unknown Sex and Gender Information Value Date Recorded Sex Assigned at Not on file Legal Sex Female 9:28 PM EDT Gender Identity Not on file Sexual Orientation Not on file Last Filed Vital Signs Vital Sign Reading Time Taken Comments Blood Pressure 148/95 11/11/2018 12:00 PM EDT Pulse - - Temperature - - Respiratory Rate - - Oxygen Saturation - - Inhaled Oxygen Concentration - - Weight 65.3 kg (144 lb) 11/11/2018 12:00 PM EDT Height 165.1 cm (5' 5 ) 11/11/2018 12:00 PM EDT Body Mass Index 23.96 11/11/2018 12:00 PM EDT Plan of Treatment Not on file
--- OUTSIDE RECORDS SUMMARY | 2025-01-04 16:21 | XMS_ITS | CCD ---
Author Organization [facility] Care Team Providers Care Management Associate Name Role Phone NAYY ., DR CARREON [...] Consulting Unavailable Nayy, Velma Primary Care Physician [phone] MD Galileo Cleary Attending Provider Galileo CLEARY Attending Unavailable NILL, Galileo Jarrett Attending Unavailable NayyVelma Referring Unavailable NILLGalileo Attending Unavailable Nill, Galileo Jarrett Attending Unavailable Nill, Galileo Jarrett Admitting Unavailable Allergies Allergy Classification Reported Allergen(s) Allergy Type Date of Onset Reaction(s) Facility (3 sources) Aspirin; Translations: [aspirin] Drug Allergy 4 Difficulty Breathing [facility] Repository (3 sources) Codeine; Translations: [codeine] Drug Allergy 8 Difficulty Breathing [facility] Repository (3 sources) Morphine; Translations: [morphine] Drug Allergy 9 Difficulty Breathing [facility] Repository (2 sources) Propoxyphene; Translations: [Darvon] Drug Allergy 3 [facility] Repository (1 source) Sulfamethoxazole / Trimethoprim Drug Allergy 3 [facility] Repository (3 sources) Acetaminophen / HYDROcodone; Translations: [acetaminophen-hydro codone] Drug Allergy Dyspnea (finding) [facility] (2 sources) Aspirin; Translations: [aspirin] Drug Allergy Dyspnea (finding) [facility] (2 sources) Codeine; Translations: [codeine] Drug Allergy Dyspnea (finding) [facility] (2 sources) Morphine; Translations: [morphine] Drug Allergy Dyspnea (finding) [facility] (3 sources) Propoxyphene; Translations: [propoxyphene] Drug Allergy 9 Dyspnea (finding) [facility] (2 sources) Sulfamethoxazole; Translations: [sulfamethoxazole] Drug Allergy 9 Difficulty Breathing [facility] (2 sources) Trimethoprim; Translations: [trimethoprim] Drug Allergy 9 Difficulty Breathing [facility] (1 source) Aspirin Drug Allergy 9 [facility] (1 source) Codeine Drug Allergy 9 [facility] (1 source) Morphine Drug Allergy 9 [facility] Rep[facility] (1 source) Propoxyphene Drug Allergy 9 [facility] Repository Medications Current Medications Medication Drug Class(es) [...] sources) Calcitonin Start: 05-26-2018 End: 06-02-2018 Calcitonin ([place]) Active 1 SPRAYS NASAL Daily 2.7 30 [...] for choosing us for your care. [facility] General Surgery Office/Clini c Noteon [...] Immunizations Vaccine Date Status Comments SARS-CoV-2 (COVID-19) mRNAMUL.ORD![id number] 12/07/2021 Recorded SARSCoV2 mRNA(vukotlbxz-xxth-hikzu s) vac 07/14/2021 Recorded SARS-CoV-2 (COVID-19) mRNA BNT-162b2 vax 12/27/2020 Recorded SARS-CoV-2 (COVID-19) mRNA BNT-162b2 vax 05/18/2020 Recorded 2023-07-19: TPV70 SARS-CoV-2 (COVID-19) mRNA BNT-162b2 vax 04/27/2020 Recorded 2023-07-19: TPV70 Normal [facility] Comment on above: Result Comment: Elec tronically Signed By: MELL MONGE, Galileo Agrawalbr\Date and Time Signed: 09/24/23 14:47 EDT Cruz 09-18-2023 L Specimen: [id number] Received: 09/19/23 Status: KISHAN Garnett Num: [id number] Spec Type: Surgical Subm Dr: Galileo Cleary MD FACS Tissues: A Soft Tissue/Surgical Margin-Other than Tumor,Mass,Lip or Angella (RT EAR) Procedures: HE/4, Gross/Micro L4 Age/ Patient Sex Location Account Attending Physician Ilana Moore 73/F LABELL [id number] Galileo Cleary MD FACS SPEC NUM: [id number] RECD: 09/19/23 STATUS: INGRIDNicole GARNETT NUM: [id number] MARCO: 09/18/23-[address]: Galileo Cleary MD FACS ENTERED: 09/19/23-12[address] [facility] DR: Con Romero SPEC TYPE: [...] bisected and entirely submitted in A1. Specimen: [id number] Received: 09/19/23 Status: KISHAN Tamir Num: [id number] Spec Type: Surgical Subm Dr: Galileo Cleary MD FACS Tissues: A Soft Tissue/Surgical Margin-Other than Tumor,Mass,Lip or Angella (RT EAR) Procedures: HE/Melissa, Gross/Micro L4 Patient: OscarIlana L [id number] (Continued) Specimen: [id number] Received: 09/19/23 (Continued) Signed (signature on file) Cookie Evangelista MD 09/23/23 1129 Specimen: [id number] Received: 09/19/23 Status: KISHAN Coxalisha Num: [id number] Spec Type: Surgical Subm Dr: Galileo Cleary MD FACS Tissues: A Soft Tissue/Surgical Margin-Other than Tumor,Mass,Lip or Angella (RT EAR) Procedures: CLAUDE/Melissa, Gross/Micro L4 Patient: Ilana Moore [id number] (Continued) Specimen: [id number] Received: 09/19/23 (Continued) CPT Codes 12918 Specimen: [id number] Received: 09/19/23 Status: KISHAN Garnett Num: [id number] Spec Type: Surgical Subm Dr: Galileo Cleary MD FACS Tissues: A Soft Tissue/Surgical Margin-Other than Tumor,Mass,Lip or Angella (RT EAR) Procedures: /Melissa, Gross/Micro L4 Patient: Ilana Moore [id number] (Continued) Signed (signature on file) Cookie Evangelista MD 09/23/23 1129 Normal [facility] Consent for Procedure/Surger yon 08-02-2023 Consent for Procedure/Surgery [id number] Normal [facility] Facesheeton 08-01-2023 Facesheet [id number] [facility] Ambulatory Visit Summaryon 0 07-31-2023 Ambulatory [...] for choosing us for your care. Normal [facility] MG MAMM SCREEN 3D ALLEN CADon 05-14-2022 MG MAMM SCREEN 3D ALLEN CAD Patient: ILANA MOORE Exam Date: 05/14/2022 : 1950 Gender:F Ordering : DR VELMA MULLER . Admission #: [id number] Family : Order #: [id number] CLICK HERE TO VIEW EXAM RADIOLOGY REPORT [...] liver cancer at age 66. LOCATION: [facility] BREAST COMPOSITION: Scattered areas fibroglandular density. FINDINGS: [...] M.D. on 05/16/2022 at 13:19 Normal [facility] INSULINon 02-08-2022 Insulin 6.6 uIU/mL Normal 2.6-24.9 [facility] Comment on above: Performed By: #### C BC #### [facility] [address] [place] [address] Dr. Lupe Evangelista CBC AUTO DIFFon 02-07-2022 BASO # 0.1 103/ul Normal 0.0-0.1 [facility] Comment on above: Performed By: #### C BC #### [facility] [address] [place] [address] Dr. Lupe Evangelista Basophils/100 WBC (Bld) 0.7 % Normal 0.2-2.0 [facility] Comment on above: Performed By: #### C BC #### [facility] [address] [place] [address] Dr. Lupe Evangelista EO # 0.4 103/ul Normal 0.0-0.7 [facility] Comment on above: Performed By: #### C BC #### [facility] [address] [place] [address] Dr. Lupe Evangelista Eosinophils/100 WBC (Bld) 5.4 % Normal 0.9-7.0 [facility] Comment on above: Performed By: #### C BC #### [facility] [address] [place] [address] Dr. Lupe Evangelista Erythrocyte distribution width (RBC) [Ratio] 15.9 % Critically high 11.0-15.0 [facility] Comment on above: Performed By: #### C BC #### [facility] [address] [place] [address] Dr. Lupe Evangelista Hematocrit (Bld) [Volume fraction] 39.8 % Normal 36.0-48.0 [facility] Comment on above: Performed By: #### C BC #### [facility] [address] [place] [address] Dr. Lupe Evangelista Hemoglobin (Bld) [Mass/Vol] 11.6 g/dL Critically low 12.0-16.0 [facility] Comment on above: Performed By: #### C BC #### [facility] [address] [address] [address] Lupe Evangelista IG # 0.02 10e3/ul Normal 0.00-0.03 [facility] Comment on above: Performed By: #### C BC #### [facility] [address] [address] [address] Lupe Evangelista IG % 0.2 % Normal 0.0-0.5 [facility] Comment on above: Performed By: #### C BC #### [facility] [address] [place] [address] Dr. Lupe Evangelista LYMPH # 2.9 103/ul Normal 1.2-3.8 [facility] Comment on above: Performed By: #### C BC #### [facility] [address] [place] [address] Dr. Lupe Evangelista Lymphocytes/100 WBC (Bld) 35.2 % Normal 20.5-60.0 [facility] Comment on above: Performed By: #### C BC #### [facility] [address] [place] [address] Dr. Lupe Evangelista MANUAL DIFF REQ NO Normal [facility] Comment on above: Performed By: #### C BC #### [facility] [address] [place] [address] Dr. Lupe Evangelista MCH (RBC) [Entitic mass] 23.4 pg Critically low 26.7-34.0 [facility] Comment on above: Performed By: #### C BC #### [facility] [address] [place] [address] Dr. Lupe Evangelista MCHC (RBC) [Mass/Vol] 29.1 g/dL Critically low 29.9-35.2 [facility] Comment on above: Performed By: #### C BC #### [facility] [address] [place] [address] Dr. Lupe Evangelista MCV (RBC) [Entitic vol] 80.4 fL Critically low 81.0-99.0 [facility] Comment on above: Performed By: #### C BC #### [facility] [address] [place] [address] Dr. Lupe Evangelista MONO # 0.8 103/ul Normal 0.3-0.8 [facility] Comment on above: Performed By: #### C BC #### [facility] [address] [place] [address] Dr. Lupe Evangelista Monocytes/100 WBC (Bld) 9.8 % Normal 1.7-12.0 [facility] Comment on above: Performed By: #### C BC #### [facility] [address] [place] [address] Dr. Lupe Evangelista NEUT # 4.0 103/ul Normal 1.4-6.5 [facility] Comment on above: Performed By: #### C BC #### [facility] [address] [place] [address] Dr. Lupe Evangelista Neutrophils/100 WBC (Bld) 48.7 % Normal 43.0-75.0 [facility] Comment on above: Performed By: #### C BC #### [facility] [address] [place] [address] Dr. Lupe Evangelista Platelet mean volume (Bld) [Entitic vol] 11.0 fL Normal 9.5-13.5 [facility] Comment on above: Performed By: #### C BC #### [facility] [address] [place] [address] Dr. Lupe Evangelista PLT 341 103/ul Normal 150-450 [facility] Comment on above: Performed By: #### C BC #### [facility] [address] [place] [address] Dr. Lupe Evangelista RBC 4.95 106/ul Normal 4.20-5.40 [facility] Comment on above: Performed By: #### C BC #### [facility] [address] [place] [address] Dr. Lupe Evangelista WBC 8.2 103/ul Normal 4.0-11.0 [facility] Comment on above: Performed By: #### C BC #### [facility] [address] [place] [address] Dr. Lupe Evangelista FREE THYROXINE INDEX T7on FTI 1.98 Normal 1.30-4.50 [facility] Comment on above: Performed By: #### C BC #### [facility] [address] [address] [address] Lupe Evangelista T3U 31.0 % Normal 30.0-39.0 [facility] Comment on above: Performed By: #### C BC #### [facility] [address] [address] [address] Lupe Evangelista T4 [Mass/Vol] 6.40 ug/dL Normal 4.80-13.90 [facility] Comment on above: Performed By: #### C BC #### [facility] [address] [place] [address] Dr. Lupe Evangelista GLYCOHEMOGLOBIN A1Con 2021 ADA RECOMMENDATION SEE BELOW Normal [facility] Comment on above: Result Comment: ADA RECOMMENDED LIMIT 4.0 - 6.0 ADA THERAPEUTIC TARGET < 7.0 ACTION SUGGESTED > 7.0 Performed By: #### C BC #### [facility] [address] [place] [address] Dr. Lupe Evangelista Glucose [Mass/Vol] 128 mg/dL Normal [facility] Comment on above: Performed By: #### C BC #### [facility] [address] [place] [address] Dr. Lupe Evangelista HbA1c (Bld) [Mass fraction] 6.1 % Normal 4.5-6.2 [facility] Comment on above: Performed By: #### C BC #### [facility] [address] [place] [address] Dr. Lupe Evangelista IRONon 02-07-2022 Iron [Mass/Vol] 44.0 ug/dL Critically low 50.0-170.0 [facility] Comment on above: Performed By: #### I DINO JACOBO #### [facility] [address] [place] [address] Dr. Lupe Evangelista LIPID PROFILEon 02-07-2022 CHOL-HDL RATIO NORM SEE BELOW Normal [facility] Comment on above: Result Comment: 3.3 - 4.4 LOW RISK 4.4 - 7.1 AVERAGE RISK 7.1 - 11.0 MODERATE RISK >11.0 HIGH RISK Performed By: #### C BC #### [facility] [address] [place] [address] Dr. Lupe Evangelista Cholesterol [Mass/Vol] 217 mg/dL Critically high <=200 [facility] Comment on above: Performed By: #### C BC #### [facility] [address] [place] [address] Dr. Lupe Evangelista Cholesterol in HDL [Mass/Vol] 60 mg/dL Normal 40-60 [facility] Comment on above: Performed By: #### C BC #### [facility] [address] [place] [address] Dr. Lupe Evangelista Cholesterol in LDL [Mass/Vol] 136.0 mg/dL Normal [facility] Comment on above: Performed By: #### C BC #### [facility] [address] [place] [address] Dr. Lupe Evangelista Cholesterol.total/C holesterol in HDL [Mass ratio] 3.6 {ratio} Normal [facility] Comment on above: Performed By: #### C BC #### [facility] [address] [place] [address] Dr. Lupe Evangelista HDL NORMAL > or = 60 mg/dl - LO W CARDIOVASCULAR RISK <40 mg/dl - HIGH CARDIOVASCULAR RISK Normal [facility] Comment on above: Performed By: #### C BC #### [facility] [address] [place] [address] Dr. Lupe Evangelista LDL CALC NORMAL SEE BELOW Normal [facility] Comment on above: Result Comment: <100 mg/dl OPTIMAL 100 - 129 mg/dl NEAR OR ABOVE OPTIMAL 130 - 159 mg/dl BORDERLINE HIGH 160 - 189 mg/dl HIGH >190 mg/dl VERY HIGH Performed By: #### C BC #### [facility] [address] [place] [address] Dr. Lupe Evangelista Triglyceride [Mass/Vol] 105 mg/dL Normal <=150 [facility] Comment on above: Performed By: #### C BC #### [facility] [address] [address] [address] Lupe Evangelista VLDL CALC 21.0 mg/dL Normal [facility] Comment on above: Performed By: #### C BC #### [facility] [address] [place] [address] Dr. Lupe Evangelista PROF 14(COMP METB)on 022 Albumin [Mass/Vol] 3.7 g/dL Normal 3.4-5.0 [facility] Comment on above: Performed By: #### C MP, LIPID, TSH, T7 #### [facility] [address] [place] [address] Dr. Lupe Evangelista Albumin/Globulin [Mass ratio] 1.0 {ratio} Normal [facility] Comment on above: Performed By: #### C MP, LIPID, TSH, T7 #### [facility] [address] [place] [address] Dr. Lupe Evangelista ALP [Catalytic activity/Vol] 86 U/L Normal 46-116 [facility] Comment on above: Performed By: #### C MP, LIPID, TSH, T7 #### [facility] [address] [place] [address] Dr. Lupe Evangelista ALT [Catalytic activity/Vol] 16 U/L Normal 14-59 [facility] Comment on above: Performed By: #### C MP, LIPID, TSH, T7 #### [facility] [address] [place] [address] Dr. Lupe Evangelista Anion gap [Moles/Vol] 7.0 mmol/L Normal [facility] Comment on above: Performed By: #### C MP, LIPID, TSH, T7 #### [facility] [address] [place] [address] Dr. Lupe Evangelista AST [Catalytic activity/Vol] 14 U/L Critically low 15-37 [facility] Comment on above: Performed By: #### C MP, LIPID, TSH, T7 #### [facility] [address] [place] [address] Dr. Lupe Evangelista Bilirubin [Mass/Vol] 0.4 mg/dL Normal 0.2-1.0 [facility] Comment on above: Performed By: #### C MP, LIPID, TSH, T7 #### [facility] [address] [address] [address] Lupe Evangelista Calcium [Mass/Vol] 8.9 mg/dL Normal 8.5-10.1 [facility] Comment on above: Performed By: #### C MP, LIPID, TSH, T7 #### [facility] [address] [place] [address] Dr. Lupe Evangelista Chloride [Moles/Vol] 102 mmol/L Normal 98-107 [facility] Comment on above: Performed By: #### C MP, LIPID, TSH, T7 #### [facility] [address] [place] [address] Dr. Lupe Evangelista CO2 [Moles/Vol] 34.3 mmol/L Critically high 21.0-32.0 [facility] Comment on above: Performed By: #### C MP, LIPID, TSH, T7 #### [facility] [address] [place] [address] Dr. Lupe Evangelista Creatinine [Mass/Vol] 0.73 mg/dL Normal 0.55-1.02 [facility] Comment on above: Performed By: #### C MP, LIPID, TSH, T7 #### [facility] [address] [place] [address] Dr. Lupe Evangelista EGFR-AF SOLOMON ISLANDER >60 Normal >=60 [facility] Comment on above: Performed By: #### C MP, LIPID, TSH, T7 #### [facility] [address] [place] [address] Dr. Lupe Evangelista EGFR-NON AF SOL[place] ISLANDER >60 Normal >=60 [facility] Comment on above: Performed By: #### C MP, LIPID, TSH, T7 #### [facility] [address] [place] [address] Dr. Lupe Evangelista Globulin (S) [Mass/Vol] 3.8 g/dL Normal [facility] Comment on above: Performed By: #### C MP, LIPID, TSH, T7 #### [facility] [address] [place] [address] Dr. Lupe Evangelista Glucose [Mass/Vol] 111 mg/dL Critically high 74-106 T [facility] Comment on above: Performed By: #### C MP, LIPID, TSH, T7 #### [facility] [address] [address] [address] Lupe Evangelista Potassium [Moles/Vol] 4.3 mmol/L Normal 3.5-5.1 [facility] Comment on above: Performed By: #### C MP, LIPID, TSH, T7 #### [facility] [address] [address] [address] Lupe Evangelista Protein [Mass/Vol] 7.5 g/dL Normal 6.4-8.2 [facility] Comment on above: Performed By: #### C MP, LIPID, TSH, T7 #### [facility] [address] [place] [address] Dr. Lupe Evangelista Sodium [Moles/Vol] 139 mmol/L Normal 136-145 [facility] Comment on above: Performed By: #### C MP, LIPID, TSH, T7 #### [facility] [address] [place] [address] Dr. Lupe Evangelista Urea nitrogen [Mass/Vol] 11.0 mg/dL Normal 7.0-18.0 [facility] Comment on above: Performed By: #### C MP, LIPID, TSH, T7 #### [facility] [address] [place] [address] Dr. Lupe Evangelista Urea nitrogen/Creatinine [Mass ratio] 15.1 mg/mg Normal [facility] Comment on above: Performed By: #### C MP, LIPID, TSH, T7 #### [facility] [address] [place] [address] Dr. Lupe Evangelista TSHon 02-07-2022 TSH 2.224 uIU/mL Normal 0.358-3.740 [facility] Comment on above: Performed By: #### C BC #### [facility] [address] [place] [address] Dr. Lupe Evangelista VITAMIN D 25 OHon 02-07-2022 VIT D 25-OH 17.8 ng/mL Normal [facility] Comment on above: Performed By: #### I DONNELL VITAD #### [facility] [address] [address] [address] Lupe Evangelista VIT D RANGES SEE BELOW Normal [facility] Comment on above: Result Comment: <20 ng/mL Vit D deficient 20 - <30 ng/mL Vit D insufficient 30 - 100 ng/mL Vit D sufficient >100 ng/mL Potential Toxicity Performed By: #### I DONNELL VITAD #### [facility] [address] [address] [address] Lupe Evangelista XR CHEST 2 Von [...] ARIANNE BRAGA Date: 2022-02-07 17:56 Normal [facility] CBC AUTO DIFFon 12-01-2021 BASO # 0.1 103/ul Normal 0.0-0.1 [facility] Comment on above: Performed By: #### C BC #### [facility] [address] [place] [address] Dr. Lupe Evangelista Basophils/100 WBC (Bld) 0.8 % Normal 0.2-2.0 [facility] Comment on above: Performed By: #### C BC #### [facility] [address] [place] [address] Dr. Lupe Evangelista EO # 0.4 103/ul Normal 0.0-0.7 [facility] Comment on above: Performed By: #### C BC #### [facility] [address] [place] [address] Dr. Lupe Evangelista Eosinophils/100 WBC (Bld) 5.4 % Normal 0.9-7.0 [facility] Comment on above: Performed By: #### C BC #### [facility] [address] [place] [address] Dr. Lupe Evangelista Erythrocyte distribution width (RBC) [Ratio] 16.3 % Critically high 11.0-15.0 [facility] Comment on above: Performed By: #### C BC #### [facility] [address] [place] [address] Dr. Lupe Evangelista Hematocrit (Bld) [Volume fraction] 36.0 % Normal 36.0-48.0 [facility] Comment on above: Performed By: #### C BC #### [facility] [address] [place] [address] Dr. Lupe Evangelista Hemoglobin (Bld) [Mass/Vol] 10.4 g/dL Critically low 12.0-16.0 [facility] Comment on above: Performed By: #### C BC #### [facility] [address] [place] [address] Dr. Lupe Evangelista IG # 0.04 10e3/ul Critically high 0.00-0.03 [facility] Comment on above: Performed By: #### C BC #### [facility] [address] [place] [address] Dr. Lupe Evangelista IG % 0.6 % Critically high 0.0-0.5 [facility] Comment on above: Performed By: #### C BC #### [facility] [address] [place] [address] Dr. Lupe Evangelista LYMPH # 1.9 103/ul Normal 1.2-3.8 [facility] Comment on above: Performed By: #### C BC #### [facility] [address] [place] [address] Dr. Lupe Evangelista Lymphocytes/100 WBC (Bld) 29.1 % Normal 20.5-60.0 [facility] Comment on above: Performed By: #### C BC #### [facility] [address] [place] [address] Dr. Lupe Evangelista MANUAL DIFF REQ NO Normal [facility] Comment on above: Performed By: #### C BC #### [facility] [address] [place] [address] Dr. Lupe Evangelista MCH (RBC) [Entitic mass] 24.9 pg Critically low 26.7-34.0 [facility] Comment on above: Performed By: #### C BC #### [facility] [address] [place] [address] Dr. Lupe Evangelista MCHC (RBC) [Mass/Vol] 28.9 g/dL Critically low 29.9-35.2 [facility] Comment on above: Performed By: #### C BC #### [facility] [address] [place] [address] Dr. Lupe Evangelista MCV (RBC) [Entitic vol] 86.1 fL Normal 81.0-99.0 [facility] Comment on above: Performed By: #### C BC #### [facility] [address] [place] [address] Dr. Lupe Evangelista MONO # 0.7 103/ul Normal 0.3-0.8 [facility] Comment on above: Performed By: #### C BC #### [facility] [address] [place] [address] Dr. Lupe Evangelista Monocytes/100 WBC (Bld) 10.7 % Normal 1.7-12.0 [facility] Comment on above: Performed By: #### C BC #### [facility] [address] [place] [address] Dr. Lupe Evangelista NEUT # 3.4 103/ul Normal 1.4-6.5 [facility] Comment on above: Performed By: #### C BC #### [facility] [address] [place] [address] Dr. Lupe Evangelista Neutrophils/100 WBC (Bld) 53.4 % Normal 43.0-75.0 [facility] Comment on above: Performed By: #### C BC #### [facility] [address] [place] [address] Dr. Lupe Evangelista Platelet mean volume (Bld) [Entitic vol] 10.6 fL Normal 9.5-13.5 [facility] Comment on above: Performed By: #### C BC #### [facility] [address] [address] [address] Lupe Evangelista PLT 320 103/ul Normal 150-450 [facility] Comment on above: Performed By: #### C BC #### [facility] [address] [place] [address] Dr. Lupe Evangelista RBC 4.18 106/ul Critically low 4.20-5.40 [facility] Comment on above: Performed By: #### C BC #### [facility] [address] [place] [address] Dr. Lupe Evangelista WBC 6.4 103/ul Normal 4.0-11.0 [facility] Comment on above: Performed By: #### C BC #### [facility] [address] [place] [address] Dr. Lupe Evangelista CRPon 12-01-2021 CRP 1.6 mg/dL Critically high <=1.0 [facility] Comment on above: Performed By: #### C RP #### [facility] [address] [place] [address] Dr. Lupe Evangelista CBC AUTO DIFFon 11-29-2021 BASO # 0.1 103/ul Normal 0.0-0.1 [facility] Comment on above: Performed By: #### C BC #### [facility] [address] [place] [address] Dr. Lupe Evangelista Basophils/100 WBC (Bld) 0.6 % Normal 0.2-2.0 [facility] Comment on above: Performed By: #### C BC #### [facility] [address] [place] [address] Dr. Lupe Evangelista EO # 0.4 103/ul Normal 0.0-0.7 [facility] Comment on above: Performed By: #### C BC #### [facility] [address] [place] [address] Dr. Lupe Evangelista Eosinophils/100 WBC (Bld) 5.4 % Normal 0.9-7.0 [facility] Comment on above: Performed By: #### C BC #### [facility] [address] [place] [address] Dr. Lupe Evangelista Erythrocyte distribution width (RBC) [Ratio] 16.5 % Critically high 11.0-15.0 [facility] Comment on above: Performed By: #### C BC #### [facility] [address] [place] [address] Dr. Lupe Evangelista Hematocrit (Bld) [Volume fraction] 36.1 % Normal 36.0-48.0 [facility] Comment on above: Performed By: #### C BC #### [facility] [address] [place] [address] Dr. Lupe Evangelista Hemoglobin (Bld) [Mass/Vol] 10.6 g/dL Critically low 12.0-16.0 [facility] Comment on above: Performed By: #### C BC #### [facility] [address] [place] [address] Dr. Lupe Evangelista IG # 0.03 10e3/ul Normal 0.00-0.03 [facility] Comment on above: Performed By: #### C BC #### [facility] [address] [place] [address] Dr. Lupe Evangelista IG % 0.4 % Normal 0.0-0.5 [facility] Comment on above: Performed By: #### C BC #### [facility] [address] [place] [address] Dr. Lupe Evangelista LYMPH # 2.3 103/ul Normal 1.2-3.8 [facility] Comment on above: Performed By: #### C BC #### [facility] [address] [place] [address] Dr. Lupe Evangelista Lymphocytes/100 WBC (Bld) 29.9 % Normal 20.5-60.0 [facility] Comment on above: Performed By: #### C BC #### [facility] [address] [place] [address] Dr. Lupe Evangelista MANUAL DIFF REQ NO Normal [facility] Comment on above: Performed By: #### C BC #### [facility] [address] [place] [address] Dr. Lupe Evangelista MCH (RBC) [Entitic mass] 25.4 pg Critically low 26.7-34.0 [facility] Comment on above: Performed By: #### C BC #### [facility] [address] [place] [address] Dr. Lupe Evangelista MCHC (RBC) [Mass/Vol] 29.4 g/dL Critically low 29.9-35.2 [facility] Comment on above: Performed By: #### C BC #### [facility] [address] [place] [address] Dr. Lupe Evangelista MCV (RBC) [Entitic vol] 86.4 fL Normal 81.0-99.0 [facility] Comment on above: Performed By: #### C BC #### [facility] [address] [place] [address] Dr. Lupe Evangelista MONO # 0.9 103/ul Critically high 0.3-0.8 [facility] Comment on above: Performed By: #### C BC #### [facility] [address] [place] [address] Dr. Lupe Evangelista Monocytes/100 WBC (Bld) 10.9 % Normal 1.7-12.0 [facility] Comment on above: Performed By: #### C BC #### [facility] [address] [place] [address] Dr. Lupe Evangelista NEUT # 4.1 103/ul Normal 1.4-6.5 [facility] Comment on above: Performed By: #### C BC #### [facility] [address] [place] [address] Dr. Lupe Evangelista Neutrophils/100 WBC (Bld) 52.8 % Normal 43.0-75.0 [facility] Comment on above: Performed By: #### C BC #### [facility] [address] [place] [address] Dr. Lupe Evangelista Platelet mean volume (Bld) [Entitic vol] 11.2 fL Normal 9.5-13.5 [facility] Comment on above: Performed By: #### C BC #### [facility] [address] [place] [address] Dr. Lupe Evangelista PLT 351 103/ul Normal 150-450 [facility] Comment on above: Performed By: #### C BC #### [facility] [address] [address] [address] Lupe Evangelista RBC 4.18 106/ul Critically low 4.20-5.40 [facility] Comment on above: Performed By: #### C BC #### [facility] [address] [place] [address] Dr. Lupe Evangelista WBC 7.8 103/ul Normal 4.0-11.0 [facility] Comment on above: Performed By: #### C BC #### [facility] [address] [place] [address] Dr. Lupe Evangelista CRPon 11-29-2021 CRP 1.7 mg/dL Critically high <=1.0 [facility] Comment on above: Performed By: #### C RP, CMP #### [facility] [address] [place] [address] Dr. Lupe Evangelista CULTURE BLOODon 11-29-2021 Microscopic examination of blood, culture Culture Observations: NO GROWTH AT 5 DAYS. Normal [facility] Comment on above: Performed By: #### C BC #### [facility] [address] [place] [address] Dr. Lupe Evangelista Microscopic examination of blood, culture Culture Observations: NO GROWTH AT 5 DAYS. Normal [facility] Comment on above: Performed By: #### C BC #### [facility] [address] [place] [address] Dr. Lupe Evangelista PROF 14(COMP METB)on 022 Albumin [Mass/Vol] 3.5 g/dL Normal 3.4-5.0 [facility] Comment on above: Performed By: #### C RP, CMP #### [facility] [address] [place] [address] Dr. Lupe Evangelista Albumin/Globulin [Mass ratio] 0.9 {ratio} Normal [facility] Comment on above: Performed By: #### C RP, CMP #### [facility] [address] [address] [address] Lupe Evangelista ALP [Catalytic activity/Vol] 105 U/L Normal 46-116 [facility] Comment on above: Performed By: #### C RP, CMP #### [facility] [address] [place] [address] Dr. Lupe Evangelista ALT [Catalytic activity/Vol] 15 U/L Normal 14-59 [facility] Comment on above: Performed By: #### C RP, CMP #### [facility] [address] [place] [address] Dr. Lupe Evangelista Anion gap [Moles/Vol] 7.3 mmol/L Normal [facility] Comment on above: Performed By: #### C RP, CMP #### [facility] [address] [place] [address] Dr. Lupe Evangelista AST [Catalytic activity/Vol] 21 U/L Normal 15-37 [facility] Comment on above: Performed By: #### C RP, CMP #### [facility] [address] [place] [address] Dr. Lupe Evangelista Bilirubin [Mass/Vol] 0.4 mg/dL Normal 0.2-1.0 [facility] Comment on above: Performed By: #### C RP, CMP #### [facility] [address] [place] [address] Dr. Lupe Evangelista Calcium [Mass/Vol] 8.5 mg/dL Normal 8.5-10.1 [facility] Comment on above: Performed By: #### C RP, CMP #### [facility] [address] [place] [address] Dr. Lupe Evangelista Chloride [Moles/Vol] 102 mmol/L Normal 98-107 [facility] Comment on above: Performed By: #### C RP, CMP #### [facility] [address] [address] [address] Lupe Evangelista CO2 [Moles/Vol] 31.9 mmol/L Normal 21.0-32.0 [facility] Comment on above: Performed By: #### C RP, CMP #### [facility] [address] [place] [address] Dr. Lupe Evangelista Creatinine [Mass/Vol] 0.76 mg/dL Normal 0.55-1.02 [facility] Comment on above: Performed By: #### C RP, CMP #### [facility] [address] [place] [address] Dr. Lupe Evangelista EGFR-AF [place] ISLANDER >60 Normal >=60 [facility] Comment on above: Performed By: #### C RP, CMP #### [facility] [address] [place] [address] Dr. Lupe Evangelista EGFR-NON AF [place]LANDER >60 Normal >=60 [facility] Comment on above: Performed By: #### C RP, CMP #### [facility] [address] [place] [address] Dr. Lupe Evangelista Globulin (S) [Mass/Vol] 3.9 g/dL Normal [facility] Comment on above: Performed By: #### C RP, CMP #### [facility] [address] [place] [address] Dr. Lupe Evangelista Glucose [Mass/Vol] 92 mg/dL Normal 74-106 [facility] Comment on above: Performed By: #### C RP, CMP #### [facility] [address] [place] [address] Dr. Lupe Evangelista Potassium [Moles/Vol] 4.2 mmol/L Normal 3.5-5.1 [facility] Comment on above: Performed By: #### C RP, CMP #### [facility] [address] [place] [address] Dr. Lupe Evangelista Protein [Mass/Vol] 7.4 g/dL Normal 6.4-8.2 [facility] Comment on above: Performed By: #### C RP, CMP #### [facility] [address] [place] [address] Dr. Lupe Evangelista Sodium [Moles/Vol] 137 mmol/L Normal 136-145 [facility] Comment on above: Performed By: #### C RP, CMP #### [facility] [address] [address] [address] Lupe Evangelista Urea nitrogen [Mass/Vol] 8.0 mg/dL Normal 7.0-18.0 [facility] Comment on above: Performed By: #### C RP, CMP #### [facility] [address] [address] [address] Lupe Evangelista Urea nitrogen/Creatinine [Mass ratio] 10.5 mg/mg Normal [facility] Comment on above: Performed By: #### C RP, CMP #### [facility] [address] [place] [address] Dr. Lupe Evangelista SED RATE [facility] 2021 SED RATE 27 mm/hr Normal <=30 [facility] Comment on above: Performed By: #### S EDR #### [facility] [address] [place] [address] Dr. Lupe Evangelista XR KNEE RT 4V [...] Normal [facility] Vital Signs Date Time Vital Sign Value Performing Clinician [place] 07-31-2023 14:30-0400 Blood Pressure Location Galileo Mcnamara [facility] [place] 07-31-2023 14:30-0400 Diastolic blood pressure 62 mm[Hg] Galileo Mcnamara [facility] 07-31-2023 14:30-0400 Heart rate 68 /min Galileo CAMACHOL [facility] 07-31-2023 14:30-0400 Respiratory rate 16 /min Galileo CAMACHOL [facility] 07-31-2023 14:30-0400 Systolic blood pressure 120 mm[Hg] [facility] Encounter Date Encounter Type Care Provider Facility Start: 09-24-2023 End: 09-24-2023 ambulatory Galileo R MELL Facility: [facility] Start: 09-24-2023 End: 09-24-2023 Patient encounter [facility] Start: 09-18-2023 End: 09-18-2023 ambulatory Galileo Cleary [facility] Work Phone: Start: 09-18-2023 End: 09-18-2023 Departed Referred MD Galileo Cleary Work Phone: [facility] [place] [facility] Start: 09-18-2023 End: 09-18-2023 ambulatory Galileo CLEARY Facility:[id number] Start: 07-31-2023 End: 07-31-2023 ambulatory Galileo R NILRenu Facility: [facility] Start: 07-31-2023 End: 07-31-2023 [facility] Start: 07-19-2023 ambulatory Galileo CLEARY Facility:Fabricio Romero [...] Provider Fa cility 12-07-2021 SARS-CoV-2 (COVID-19 ) [id number].[id number] Galileo NILL [facility] 07-14-2021 SARS-CoV-2 mRNA (egmigqepakw-hnup-dnvfu se) vaccine Galileo NILL [facility] 12-27-2020 SARS-CoV-2 (COVID-19 ) mRNA BNT-162b2 vax Galileo NILL [facility] 05-18-2020 SARS-CoV-2 (COVID-19 ) mRNA BNT-162b2 vax Galileo NILL [facility] Comment on above: Result Comment: 2023: [id number] 04-27-2020 SARS-CoV-2 (COVID-19 ) mRNA BNT-162b2 vax Galileo CLEARY [facility] Comment on above: Result Comment: 2023: [id number] Payers Date Payer Category Payer Self-pay [id number] Medicare [id number] 1960 Unknown [id number] 1950 Unknown [id number] 1950 Unknown [id number] 1950 Unknown [id number] 1949 Unknown [id number] 1949 Unknown [id number] 1949 Unknown [id number] 1949 Unknown [id number] 1949 Unknown [id number] Unknown Regular Insurance [id number] Unknown [id number] Worker's Compensation [employer] [id number] Social History Date Type Detail Facility Start: 07-31-2023 Tobacco smoking status Never s moked tobacco (finding) [facility] Start: 1950 Sex Assigned At Female F [facility] Functional Status Date Assessment Result Facility 07-31-2023 [facility] [place] Clinical Note 07-31-2023 Note Date & Type [...] plan excisional biopsy under local anesthesia at [facility], for definitive diagnosis and treatment; informed [...] Immunizations Vaccine Date Status Comments SARS-CoV-2 (COVID-19) [id number].[id number] 12/07/2021 Recorded SARSCoV2 mRNA(sanhpoypt-etjx-gnryyh) vac 07/14/2021 Recorded SARS-CoV-2 (COVID-19) mRNA BNT-162b2 vax 12/27/2020 Recorded SARS-CoV-2 (COVID-19) mRNA BNT-162b2 vax 05/18/2020 Recorded 2023-07-19: [id number] SARS-CoV-2 (COVID-19) mRNA BNT-162b2 vax 04/27/2020 Recorded 2023-07-19: [id number] [facility] Comment on above: Result Comment: Elec tronically Signed By: MELL MONGE, Galileo Roberts\Date and Time Signed: 07/31/23 15:12 EDT Evaluation + Plan note Note Date & Type Note Facility Evaluation + Plan note No data available for this section [facility] Evaluation note Note Date & Type Note Facility [facility] note [facility] Discharge instructions Note Date & Type Note Facility Hospital Discharge instructions No data available for this section [facility] Progress note Note Date & Type Note Facility Progress note No data available for this section [facility] Summary Purpose Family History No [...] CREATED AUTHOR AUTHOR'S ORGANIZ ATION 09/26/2023 Earl Treutlen [facility] DATE CREATED AUTHOR AUTHOR'S ORGANIZ ATION 03/18/2024 [facility] Patient Care team informatio [...] BE BASED ON THE PRIMARY CLINICAL RECORDS. [employer] provides no warranty or guarantee of the accuracy or completeness of information in this document.
--- NOTE | 2025-01-04 16:41 | PM.CACN ---
History of Present Illness History of Present Illness Consult date: 01/04/25 Requesting physician: LUIS FELIPE DIAZ Consult reason: atrial fibrillation Chief complaint: Afib RVR Narrative: Ilana Moore is a 74-year-old female with a significant past medical history of COPD with bronchiectasis, right middle lobe lobectomy (2007), hypertension, and chronic kidney disease. She presented from home with complaints of generalized weakness, urinary frequency, and poor appetite. On admission, she was found to be in new-onset rapid atrial fibrillation with a ventricular rate >140 bpm. She received IV Cardizem and subsequently converted to sinus rhythm. Transthoracic echocardiogram revealed normal left ventricular systolic function and a normal left atrial size. She was seen and evaluated at the bedside today. The patient appears fatigued, and the physical exam was limited. She denies chest pain, shortness of breath, palpitations, dizziness, or lower extremity edema. 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 (ICD-10) Elevated brain natriuretic peptide (BNP) level ?R79.89 - Other specified abnormal findings of blood chemistry (ICD-10) WHITNEY (acute kidney injury) ?N17.9 - Acute kidney failure, unspecified (ICD-10) Vitamin D deficiency ?E55.9 - Vitamin D deficiency, unspecified (ICD-10) Vitamin B deficiency ?E53.9 - Vitamin B deficiency, unspecified (ICD-10) Osteoporosis ?M81.0 - Age-related osteoporosis without current pathological fracture (ICD-10) Benign neoplasm of ear ?D23.20 - Other benign neoplasm of skin of unspecified ear and external auricular canal (ICD-10) Insomnia ?G47.00 - Insomnia, unspecified (ICD-10) Gout ?M10.9 - Gout, unspecified (ICD-10) GERD (gastroesophageal reflux disease) ?K21.9 - Gastro-esophageal reflux disease without esophagitis (ICD-10) Eczema ?L30.9 - Dermatitis, unspecified (ICD-10) COPD (chronic obstructive pulmonary disease) ?J44.9 - Chronic obstructive pulmonary disease, unspecified (ICD-10) Asthma ?J45.909 - Unspecified asthma, uncomplicated (ICD-10) Surgical History Hx of cardiac cath ?Z98.890 - Other specified postprocedural states (ICD-10) History of bronchoscopy ?Z98.890 - Other specified postprocedural states (ICD-10) 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.2 - Acquired absence of lung [part of] (ICD-10) History of repair of hiatal hernia ?Z98.890 - Other specified postprocedural states (ICD-10) ?Z87.19 - Personal history of other diseases of the digestive system (ICD-10) History of lumpectomy of left breast ?Z98.890 - Other specified postprocedural states (ICD-10) History of hip surgery ?Z98.890 - Other specified postprocedural states (ICD-10) Hx of cholecystectomy ?Z90.49 - Acquired absence of other specified parts of digestive tract (ICD-10) H/O cataract extraction ?Z98.49 - Cataract extraction status, unspecified eye (ICD-10) History of arthroplasty of right hip ?Z96.641 - Presence of right artificial hip joint (ICD-10) History of laparoscopic appendectomy ?Z90.49 - Acquired absence of other specified parts of digestive tract (ICD-10) Family History Other Breast cancer Dementia Heart disease Stroke Social History Within the past year, how often did you have a drink containing alcohol: never Within the past year, how often did you have six or more drinks on one occasion: never Score interpretation: A score less than 3 is consistent with normal alcohol consumption. 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, residential Highest level of school completed/degree received: high school graduate Little interest or pleasure in doing things: not at all Feeling down, depressed, or hopeless: not at all Meds Home Medications and Allergies Home Medications ?Medication ?Instructions ?Recorded ?Confirmed ?Type fluticasone furoate 200 1 inh inhalation DAILY 08/13/23 01/03/25 History mcg-vilanterol 25 mcg/dose inhalation powder (Breo Ellipta) albuterol sulfate 2.5 mg/3 mL 2.5 mg inhalation Q6H PRN 09/17/23 01/03/25 History (0.083 %) solution for nebulization shortness of breath or wheezing calcitonin (salmon) 200 1 spray intranasal DAILY 02/13/24 01/03/25 History unit/actuation nasal spray albuterol sulfate 90 mcg/actuation 2 inh inhalation Q4H PRN shortness 02/28/24 01/03/25 History aerosol inhaler (Ventolin HFA) of breath or wheezing voriconazole 200 mg tablet 200 mg PO Q12H 01/03/25 01/03/25 History colchicine 0.6 mg capsule 0.6 mg PO .QD 01/04/25 01/04/25 History Allergies Allergy/AdvReac Type Severity Reaction Status Date / Time aspirin AdvReac Severe shortness Verified 01/03/25 12:57 of breath codeine AdvReac Severe shortness Verified 01/03/25 12:57 of breath morphine AdvReac Severe shortness Verified 01/03/25 12:57 of breath propoxyphene (From Darvon) AdvReac Mild shortness Verified 01/03/25 12:57 of breath Exam Constitutional Vital Signs, click to edit/add: Last Vital Signs Temp 98.5 F 01/04/25 15:37 Pulse 66 01/04/25 15:43 Resp 16 01/04/25 15:37 BP 127/73 01/04/25 15:37 Pulse Ox 97 01/04/25 15:37 O2 Del Method Room Air 01/04/25 15:37 Documenting provider has reviewed patient's vital signs: yes Common normals: no apparent distress General appearance: lethargic Orientation/consciousness: Yes lethargic Respiratory Common normals: normal respiratory effort Cardio Common normals: no JVD, regular rate, regular rhythm, S1 normal heart sound, S2 normal heart sound and no murmurs Rate: regular rate Rhythm: regular rhythm Results Labs and Meds Lab results: Cardiac Enzymes 01/04/25 Range/Units 05:49 AST 15 (15-37) U/L Lipids 01/04/25 Range/Units 05:49 Triglycerides 102 (<=150) mg/dL Cholesterol 182 (<=200) mg/dL HDL Cholesterol 53 (40-60) mg/dL Cholesterol/HDL Ratio 3.4 CBC 01/04/25 Range/Units 05:49 WBC 20.5 H (4.0-11.0) 10^3/uL RBC 4.86 (4.20-5.40) 10^6/uL Hgb 12.7 (12.0-16.0) g/dL Hct 40.3 (36.0-48.0) % Plt Count 307 (150-450) 10^3/uL Neut # (Auto) 16.3 H (1.4-6.5) 10^3/uL Lymph # (Auto) 2.0 (1.2-3.8) 10^3/uL [place] # (Auto) 1.9 H (0.3-0.8) 10^3/uL Eos # (Auto) 0.0 (0.0-0.7) 10^3/uL Baso # (Auto) 0.1 (0.0-0.1) 10^3/uL Comprehensive Metabolic Panel 01/04/25 Range/Units 05:49 Sodium 135 L (136-145) mmol/L Potassium 4.1 (3.5-5.1) mmol/L Chloride 98 (98-107) mmol/L Carbon Dioxide 25.3 (21.0-32.0) mmol/L BUN 31.0 H (7.0-18.0) mg/dL Creatinine 0.91 (0.55-1.02) mg/dL Glucose 112 H (74-106) mg/dL Calcium 8.8 (8.5-10.1) mg/dL AST 15 (15-37) U/L ALT 18 (14-59) U/L Alkaline Phosphatase 81 (46-116) U/L Total Protein 7.5 (6.4-8.2) g/dL Albumin 2.5 L (3.4-5.0) g/dL Intake and Output 01/04/25 01/04/25 01/04/25 07:59 15:59 23:59 Other: # Voids 1 # Bowel Movements 2 Assessment and Plan Assessment and Plan (1) Atrial fibrillation with rapid ventricular response: (2) New onset a-fib: Plan # New-onset atrial fibrillation [id number] = 4 (age, female, HTN) Initially presented to ED with a fib with ventricular rate >140 bpm. Converted to sinus rhythm with IV Cardizem. High-sensitivity troponin: 34.3 ---> 36.6 ng/L (minimal delta) ---> consistent with Type II [place]. Denies chest pain. Likely precipitated by underlying infection / UTI and leukocytosis ---> blood cultures ordered TTE (01/04/2025): Normal LV systolic function and normal left atrial size. ? Continue metoprolol tartrate 25 mg BID ? Continue Xarelto 20 mg daily ? Check TSH ? Maintain electrolytes (K >4.0, Mg >2.0) ? Recommend event monitor to be arranged at discharge ? Follow up in outpatient EP clinic #Hypertension Stable #COPD #CKD David Mccabe [facility] Cardiovascular Medicine
[2025-01-04] MEDS: RIVAROXABAN 10 MG TABLET 20 MG PO (17:05)
[2025-01-04] MEDS: TEMAZEPAM 15 MG CAPSULE PO (21:45)
[2025-01-05] VITALS (15 sets, daily range): BP systolic 111–155; BP diastolic 66–76; PULSE 64–83; TEMP 36.3–36.8; O2SAT 93–98
[2025-01-05] MEDS: ACETAMINOPHEN 325 MG TABLET 650 MG PO (05:28)
[2025-01-05 06:16] LABS: Hematocrit 41.0 % (36.0-48.0); Hemoglobin 12.9 g/dL (12.0-16.0); Immature Granulocytes Abs Auto 0.13 10^3/uL (0.00-0.03); Immature Granulocytes Pct Auto 0.9 % (0.0-0.5); Lymphocytes Absolute Auto 1.7 10^3/uL (1.2-3.8); Mean Corpuscular HGB Conc 31.5 g/dL (29.9-35.2); Mean Corpuscular Hemoglobin 26.1 pg (26.7-34.0); Mean Corpuscular Volume 83.0 fL (81.0-99.0); Platelet Count 301 10^3/uL (150-450); Red Blood Count 4.94 10^6/uL (4.20-5.40); White Blood Count 15.0 10^3/uL (4.0-11.0)
[2025-01-05 06:33] LABS: Alanine Aminotransferase 15 U/L (14-59); Albumin Globulin Ratio 0.5; Albumin Level 2.5 g/dL (3.4-5.0); Alkaline Phosphatase 73 U/L (46-116); Anion Gap 16.1; Aspartate Amino Transferase 26 U/L (15-37); Blood Urea Nitrogen 28.0 mg/dL (7.0-18.0); Calcium 8.9 mg/dL (8.5-10.1); Carbon Dioxide 27.5 mmol/L (21.0-32.0); Chloride 100 mmol/L (98-107); Estimated GFR (African America >60 (>=60 mL/min/1.73m^2); Estimated GFR (Non-African Ame >60 (>=60 mL/min/1.73m^2); Globulin 5.1 g/dL; Glucose 82 mg/dL (74-106); Potassium 3.6 mmol/L (3.5-5.1); Sodium 140 mmol/L (136-145); Total Protein 7.6 g/dL (6.4-8.2)
[2025-01-05 06:49] LABS: Folate 19.80 ng/mL (8.60-58.90)
[2025-01-05] MEDS: METOPROLOL TARTRATE 25 MG TABLET PO ×2 (08:17→21:20)
--- NOTE | 2025-01-05 10:00 | CM.NOTE ---
Rounds made with Dr. Reinoso, pt c/o increased lower back pain that radiates down bilat legs. Dr. Reinoso will order CT scan, possible discharge after CT scan. CM will discuss with pt HH services.
--- NOTE | 2025-01-05 10:36 | CT_ITS ---
The [address] [address] Patient Name: DARRLY ZAYAS MRN: [id number] date: 1950 Sex: F Assigned Patient Location: [place] Current Patient Location: [place] Accession/Order Number: [id number] Exam Date: 01/05/2025 11:52 Report Date: 01/05/2025 12:40 At the request of: LUIS FELIPE DIAZ MD Procedure: CT lumbar spine wo con CT lumbar spine wo con 01/05/2025 11:58 AM History:Back pain for 3 weeks. TECHNIQUE: Multi detector CT axial slices of the lumbar spine were obtained without IV contrast. Volumetric acquisition sagittal, coronal, and 3-D reconstructions were performed and reviewed on a separate workstation. CT was performed with one or more of the following dose reduction techniques: Automated exposure control, adjustment of the mA and/or kV according to patient size, or use of iterative reconstruction technique. COMPARISON: CT abdomen and pelvis 02/13/2024 FINDINGS: There appears be a chronic compression deformity involving the T12 vertebral body. There is a potential subacute superior endplate fracture of L1 with mild vertebral body height loss. There is approximately 4 mm retropulsion into the spinal canal. Endplate and facet joint degenerative changes with mild disc space narrowing L3-L4. Transverse processes appear intact. SI joints demonstrate degenerative change. No paraspinal mass. Visualized retroperitoneum demonstrates no acute findings. Sigmoid diverticulosis. 3 cm left adnexal cyst. Presacral edema. CT/CT lumbar spine wo con IMPRESSION: Potential subacute superior endplate fracture involving L1 with mild vertebral body height loss and 4 mm retropulsion into the spinal canal. Finding is new compared to the 2023 study. The acuity needs to be assessed, MRI suggested. Chronic compression deformity T12 vertebral body similar to the 2023 study. 3 cm left adnexal cyst which can be further evaluated by ultrasound. Impression dictated by: Slava Fry Jr., D.O. 01/05/2025 12:40 PM Dictation Location: [place] [address] Electronically authenticated by: [id number] Y Date: 01/05/2025 12:40
--- NOTE | 2025-01-05 11:00 | CM.NOTE ---
CM spoke with pt regarding HH services and PT and OT recommendations. Pt is open to having HH services and liked [facility] that she had in the past.
[2025-01-05] MEDS: HYDROMORPHONE HCL 0.5 MG/0.5 ML SYRINGE IV ×2 (11:22→17:05)
--- NOTE | 2025-01-05 12:02 | CM.NOTE ---
Faxed Case Management review, Progress notes and face sheet to [facility] for new referral.
--- NOTE | 2025-01-05 12:07 | CM.NOTE ---
CRF completed and signed by Dr. Reinoso for [facility].
--- NOTE | 2025-01-05 12:20 | CM.NOTE ---
Called [facility] to verify fax received. Awaiting call back for confirmation.
--- NOTE | 2025-01-05 12:27 | CM.NOTE ---
[facility] called back and are able to accept pt.
--- NOTE | 2025-01-05 13:29 | MR_ITS ---
The [address] [address] Patient Name: DARRYL ZAYAS MRN: [id number] date: 1950 Sex: F Assigned Patient Location: MS Current Patient Location: MS Accession/Order Number: [id number] Exam Date: 01/05/2025 15:25 Report Date: 01/05/2025 16:54 At the request of: LUIS FELIPE DIAZ MD Procedure: MR lumbar spine wo con MR lumbar spine wo con 01/05/2025 4:26 PM SIGNS AND SYMPTOMS: ^L1 compression fracture, eval acuity PROTOCOL: Multiplanar multisequence MR images of the lumbar spine without IV contrast COMPARISON: 01/05/2025 FINDINGS: The bones of the lumbar spine are in anatomic alignment. There are compression deformities of the superior endplates at T12 and L1. There is accompanying marrow edema along the superior endplate of L1 suggesting an acute fracture. There is approximately 5 mm of retropulsion of the posterior wall of T12 and L1 into the spinal canal. There is moderate disc height loss at L3-L4. The vertebral body heights and intervertebral discs are otherwise preserved. The conus terminates at the inferior endplate of the L1 vertebral body level. No epidural or paraspinous fluid collection is appreciated. At T12-L1: There is retropulsion of the posterior wall of T12 contributing to mild spinal canal stenosis. No significant neural foraminal narrowing. At L1-L2: There is retropulsion of the posterior wall of the L1 vertebral body contributing to mild spinal canal stenosis. There is facet hypertrophy. There is mild to moderate bilateral neural foraminal narrowing. At L2-L3: There is a normal disc, central canal, and neural foramen. At L3-L4: There is a broad-based disc bulge with facet hypertrophy. There is mild spinal canal narrowing with mild bilateral neural foraminal narrowing right greater than left. At L4-L5: There is a broad-based disc bulge with facet and ligament flavum degenerative change. There is moderate spinal canal stenosis with mild bilateral neural foraminal narrowing. At L5-S1: There is a normal disc, central canal, and neural foramen. MR/MR lumbar spine wo con IMPRESSION: There are compression deformities of the superior endplates at T12 and L1. There is accompanying marrow edema along the superior endplate of L1 suggesting an acute fracture. There is approximately 5 mm of retropulsion of the posterior wall of T12 and L1 into the spinal canal. No epidural or paraspinous fluid collection. At L1-L2: There is retropulsion of the posterior wall of the L1 vertebral body contributing to mild spinal canal stenosis. There is facet hypertrophy. There is mild to moderate bilateral neural foraminal narrowing. At L4-L5: There is a broad-based disc bulge with facet and ligament flavum degenerative change. There is moderate spinal canal stenosis with mild bilateral neural foraminal narrowing. Lesser degrees of degenerative changes are noted as above. Impression dictated by: Kofi Mcdonald M.D. 01/05/2025 4:54 PM Dictation Location: [place] [address] Electronically authenticated by: [id number] Y Date: 01/05/2025 16:54
--- NOTE | 2025-01-05 13:54 | CM.NOTE ---
Updated pt on [facility] able to accept. Discussed with pt about skilled therapy at discharge also based on increased back pain and Lumbar CT findings. Pt refuses skilled therapy. Pt states My grandson is getting on Saturday and I am going. Updated Dr. Reinoso.
--- NOTE | 2025-01-05 14:29 | P.PN_ITS ---
Progress Note: Subjective Subjective Interval history: Patient was evaluated at bedside, today complaining more of lower back pain shooting to both her legs. reports that first experienced it last then got worse Saturday for which she was brought her for weakness. Pt denies falls at home or heavy lifting or twisting or turning. Denies fevers or chills. denies nausea, vomiting diarrhea. Exam Narrative Exam Narrative: General:The patient appears in no acute respiratory distress. Skin:Warm, dry, no pallor noted.There is no rash noted. Head:Normocephalic, atraumatic Eye: Normal conjunctiva, no drainage Cardiovascular: normal rate and rhythm Respiratory: Clear to auscultation with equal breath sounds Back:non-tender GI: Soft and nontender Musculoskeletal: The patient has no evidence of calf tenderness, no pitting edema, symmetrical pulses noted bilaterally. Back: lower back tenderness to touch at lumbar level Neurological: Awake and alert, normal speech. sensation intact peripherally, strength equal in upper and lower extremities b/l Psychiatric:Cooperative Constitutional Vital Signs, click to edit/add: Last Vital Signs Temp 97.8 F 01/05/25 12:26 Pulse 70 01/05/25 12:26 Resp 18 01/05/25 12:26 BP 150/68 H 01/05/25 12:26 Pulse Ox 98 01/05/25 12:26 O2 Del Method Room Air 01/05/25 12:26 Progress Note: Objective Labs Labs: Short CBC 01/05/25 Range/Units 05:51 WBC 15.0 H (4.0-11.0) 10^3/uL Hgb 12.9 (12.0-16.0) g/dL Hct 41.0 (36.0-48.0) % Plt Count 301 (150-450) 10^3/uL BMP 01/05/25 05:51 Sodium 140 Potassium 3.6 Chloride 100 Carbon Dioxide 27.5 BUN 28.0 H Creatinine 0.60 Glucose 82 Calcium 8.9 Liver Function 01/05/25 Range/Units 05:51 Total Bilirubin 0.5 (0.2-1.0) mg/dL AST 26 (15-37) U/L ALT 15 (14-59) U/L Alkaline Phosphatase 73 (46-116) U/L Albumin 2.5 L (3.4-5.0) g/dL Progress Note: A&P Assessment and Plan (1) Atrial fibrillation with rapid ventricular response: (2) New onset a-fib: Plan New onset Afib with RVR -Required Cardizem bolus followed by drip, converted to NSR. started on Metoprolol for rate control 25 mg BID. -Started on Xarelto 20 mg daily for AC -Echo done and reviewed. Normal EF and LV function, mild LVH. -TSH WNL -Cardiology consulted. Input appreciated. recs for Holter monitor as outpatient. continue rate control Metoprolol and AC w xarelto. -Follow with cardiology as outpatient Leukocytosis UTI -Seems she has had chronic elevated WBC in the past as well. WBC downtrending -She did have fever 100.7F on admission, no more fevers. -UA mildly positive for infection, pt started on IV Rocephin here -Still Pending urine and blood cultures -We checked her Flu/RSV/Covid> negative Lower back pain -Reports started Last , denies falls at home -Experienced pain again here while working with PT/OT, lower back radiating to both legs -CT lumbar was done which showed Concerns for subacute superior endplate fracture of L1 with 4 mm retropulsion into spinal canal. -Discussed results with pt and agreed to proceed with MRI lumbar as recommended -PT/OT evaluated the pt. she would like to go home with [facility], declined SNF or rehab. -Pt declines any aggressive interventions like surgical options if any considered, would like conservative managment -Pain meds added with tramadol and Dilaudid as directed as needed. Cachexia/frailty/intentional weight loss due to poor oral intake -Will defer further work up and screening for malignancy to outpatient settings. Pt states she declined colonoscopies in the past, does not seem interested at this time. Asthma: controlled with home inhaler Trelegy DVT ppx: Xarelto Discussed with patient and her and son at bedside, all questions answered
[2025-01-05] MEDS: SENNOSIDES/DOCUSATE SODIUM 1 TAB TABLET PO (17:05)
[2025-01-05] MEDS: RIVAROXABAN 10 MG TABLET 20 MG PO (17:05)
[2025-01-05] MEDS: CYCLOBENZAPRINE HCL 10 MG TABLET PO (19:45)
[2025-01-06] VITALS (9 sets, daily range): BP systolic 139–149; BP diastolic 71–77; PULSE 65–83; TEMP 36.4–37.1; O2SAT 93–96; BMI 22.7
[2025-01-06] MEDS: HYDROMORPHONE HCL 0.5 MG/0.5 ML SYRINGE IV (04:08)
[2025-01-06] MEDS: CYCLOBENZAPRINE HCL 10 MG TABLET PO ×2 (05:39→14:13)
[2025-01-06 05:55] LABS: Hematocrit 37.8 % (36.0-48.0); Hemoglobin 11.9 g/dL (12.0-16.0); Immature Granulocytes Abs Auto 0.15 10^3/uL (0.00-0.03); Immature Granulocytes Pct Auto 1.5 % (0.0-0.5); Lymphocytes Absolute Auto 2.0 10^3/uL (1.2-3.8); Mean Corpuscular HGB Conc 31.5 g/dL (29.9-35.2); Mean Corpuscular Hemoglobin 26.3 pg (26.7-34.0); Mean Corpuscular Volume 83.6 fL (81.0-99.0); Platelet Count 315 10^3/uL (150-450); Red Blood Count 4.52 10^6/uL (4.20-5.40); White Blood Count 10.1 10^3/uL (4.0-11.0)
[2025-01-06 06:07] LABS: Anion Gap 13.3; Blood Urea Nitrogen 29.0 mg/dL (7.0-18.0); Calcium 8.9 mg/dL (8.5-10.1); Carbon Dioxide 26.6 mmol/L (21.0-32.0); Chloride 100 mmol/L (98-107); Estimated GFR (African America >60 (>=60 mL/min/1.73m^2); Estimated GFR (Non-African Ame >60 (>=60 mL/min/1.73m^2); Glucose 84 mg/dL (74-106); Potassium 3.9 mmol/L (3.5-5.1); Sodium 136 mmol/L (136-145)
[2025-01-06] MEDS: METOPROLOL TARTRATE 25 MG TABLET PO (09:08)
[2025-01-06] MEDS: ACETAMINOPHEN 325 MG TABLET 650 MG PO (09:08)
[2025-01-06] MEDS: TRAMADOL HCL 50 MG TABLET PO (09:08)
--- NOTE | 2025-01-06 10:10 | CM.NOTE ---
Rounds made with Dr. Reinoso, pt continues with back pain. Dr. Reinoso discussed findings on CT scan and new fx. Pt and verbalize understanding. Discussed again with pt regarding skilled therapy at discharge, pt continues to refuse skilled therapy. Dr. Reinoso discussed with pt about wearing back brace (Wilma brace). 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
[2025-01-06] MEDS: PREDNISONE 20 MG TABLET 30 MG PO (10:28)
[2025-01-06 11:09] LABS: Vitamin B12 158 pg/mL (232-1245)
--- NOTE | 2025-01-06 12:01 | PM.DS1 ---
DS: Providers Provider Date of admission: 01/03/25 16:28 Primary care physician: Zack Muller MD Consults: 01/04/25 Consult to Cardiology Routine Reason for consultation: new onset afib Occupational Therapy Eval and Treat Routine Reason for consultation: evaluate for HH Physical Therapy Eval and Treat Routine Reason for consultation: evaluate for HH DS: Diagnosis Discharge Diagnosis (1) Atrial fibrillation with rapid ventricular response: (2) New onset a-fib: (3) Lumbar compression fracture: Plan as above DS: Summary Hospital Course Hospital Course: Patient is a 74 year old female with medical hx as listed in PMH presented to ER 01/03/25 due to generalized weakness and fatigue noticed by her . Patient denies nausea, vomiting, diarrhea or constipation. denies cough, fevers or chills at home. She does have weight loss due to poor oral intake as reported per her . denies any chest pain or palpitations. She presented here with Afib with RVR as noted on arrival here. She was given Cardizem bolus followed by Cardizem drip 5 mg/hr. HR was coming down and rate was improving. Decision was made to admit her for further evaluation and management. During hospital course, patient remained hemodynamically stable, converted to normal sinus rhythm, off Cardizem drip today, has been started on metoprolol by my colleague hospitalist. Also been started on Xarelto by my colleague hospitalist for AC. Cardiology team was consulted. assessment and plan as listed below: New onset Afib with RVR -Required Cardizem bolus followed by drip, converted to NSR. started on Metoprolol for rate control 25 mg BID. -Started on Xarelto 20 mg daily for AC -Echo done and reviewed. Normal EF and LV function, mild LVH. -TSH WNL -Cardiology consulted. Input appreciated. recommended 30 day Holter monitor as outpatient. Continue rate control Metoprolol and AC w Xarelto. -Follow with cardiology as outpatient as directed. Leukocytosis- resolved UTI -Seems she has had previous elevated WBC in the past as well. WBC downtrending here and actually has resolved. -She did have fever 100.7F on admission, no more fevers. -UA mildly positive for infection, pt started on IV Rocephin here. - urine and blood cultures - negative to date -We checked her Flu/RSV/Covid> negative -Will transition to oral antibiotics to complete course of Tx. Acute Lower back pain Acute compression fracture of L1 -Reports started Last , denies falls at home -Experienced pain again here while working with PT/OT, lower back radiating to both legs. she does not complain of pain laying still in bed, only gets pain once she sits up and stand to walk. -CT lumbar was done which showed Concerns for subacute superior endplate fracture of L1 with 4 mm retropulsion into spinal canal. -Discussed results with pt and agreed to proceed with MRI lumbar as recommended -MRI lumbar spine was done which confirmed acute compression fracture of L1 -I did reach out to neurosurgery oncall specialist at [facility] Dr. Phan and discussed the case. Recommended conservative management, pain control, course of steroids and to order Wil[place] Hyperextension brace and to work with physical/occupational therapy with it. We discussed with pt and recommended going to inpt rehab vs SNF however patient adamantly declined both and would like to go home with home health and outpatient PT/OT and feels comfortable with this plan. -Pt declines any aggressive interventions like surgical options if any considered, would like conservative management only at this time. -Prescribed course of steroids prednisone w taper, muscle relaxant, [place] for severe pain. -Will need to follow up with neurosurgery clinic as outpatient. Cachexia/frailty/intentional weight loss due to poor oral intake -Will defer further work up and screening for malignancy to outpatient settings. Pt states she declined colonoscopies in the past, does not seem interested at this time. Asthma: controlled with home inhaler Trelegy As of today, patient remained hemodynamically stable. discussed plan of care with patient and at bedside, explained at length our working diagnosis and plan of management for each diagnosis as above. They are in agreement and comfortable with discharge plan at this time. Time Spent with Patient Time attestation: Total time spent providing and/or coordinating discharge services: Time spent: greater than 30 minutes Exam Narrative Exam Narrative: General:The patient appears in no acute respiratory distress. Skin:Warm, no pallor noted.There is no rash noted. Head:Normocephalic, atraumatic Eye: Normal conjunctiva, no drainage Cardiovascular: normal rate and rhythm Respiratory: Clear to auscultation with equal breath sounds Back:non-tender GI: Soft and nontender Musculoskeletal: The patient has no evidence of calf tenderness, no pitting edema, symmetrical pulses noted bilaterally. Back: lower back tenderness to touch at lumbar level Neurological: Awake and alert, normal speech. sensation intact peripherally, strength equal in upper and lower extremities b/l Psychiatric:Cooperative Constitutional Vital Signs, click to edit/add: Last Vital Signs Temp 98.8 F 01/06/25 08:51 Pulse 67 01/06/25 09:59 Resp 18 01/06/25 08:51 BP 149/74 H 01/06/25 08:51 Pulse Ox 96 01/06/25 08:51 O2 Del Method Room Air 01/06/25 08:51 DS: Data Data Completed and Pending Labs on day of discharge: Labs from last 24 hours 01/06/25 01/05/25 05:24 05:51 WBC 10.1 RBC 4.52 Hgb 11.9 L Hct 37.8 MCV 83.6 MCH 26.3 L MCHC 31.5 RDW 15.1 H Plt Count 315 MPV 12.1 Neut % (Auto) 65.0 Lymph % (Auto) 20.1 L Arthur % (Auto) 8.9 Eos % (Auto) 3.9 Baso % (Auto) 0.6 Neut # (Auto) 6.6 H Lymph # (Auto) 2.0 Arthur # (Auto) 0.9 H Eos # (Auto) 0.4 Baso # (Auto) 0.1 Abs Immat Gran (auto) 0.15 H Imm/Tot Granulo (auto) 1.5 H Sodium 136 Potassium 3.9 Chloride 100 Carbon Dioxide 26.6 Anion Gap 13.3 BUN 29.0 H Creatinine 0.72 Est GFR ( Amer) >60 Est GFR (Non-Af Amer) >60 BUN/Creatinine Ratio 40.3 Glucose 84 Calcium 8.9 Vitamin B12 158 L Preliminary micro results at discharge 01/03/25 13:25 Blood Culture Result 2 - Preliminary Blood NO GROWTH AT 36-48 HOURS. FINAL TO FOLLOW. 01/03/25 12:58 Blood Culture Result 1 - Preliminary Blood NO GROWTH AT 36-48 HOURS. FINAL TO FOLLOW. 01/03/25 15:17 Urine Culture - Preliminary Urine Catheterized Pending - Specimen sent to [facility] Discharge Plan Discharge Disposition: Home Health Service Condition: Good Plan of Treatment: -Continue antibiotics as directed -Prescribed pain medication and muscle relaxant as needed -Prednisone (steroids) with taper as directed -Follow with cardiology as outpatient -Holter monitor as ordered. Call cardiology office if you have any questions -Follow up with PCP office after discharge -Follow with neurosurgery clinic as directed. Discharge Medications: New metoprolol tartrate 25 mg Tablet 25 mg PO BID Qty: 60 0RF Xarelto 20 mg tablet 20 mg PO DAILY Qty: 30 0RF Rx Instructions: must administer with evening meal cyclobenzaprine 10 mg Tablet 10 mg PO TID PRN (Reason: muscle spasms) Qty: 30 0RF hydrocodone-acetaminophen 5-325 mg tablet 1 tab PO Q8H PRN (Reason: pain) 7 Days Qty: 21 0RF prednisone 10 mg tablet 10 mg PO DAILY Qty: 18 0RF Rx Instructions: as directed here: Prednisone 30 mg (3 tabs) for 3 days then Prednisone 20 mg (2tabs) for 3 days then Prednisone 10 mg (1 tab) for 3 days to finish cefuroxime axetil 250 mg tablet 250 mg PO BID 3 Days Qty: 6 0RF Continued calcitonin (salmon) 200 unit/actuation spray,non-aerosol 1 spray intranasal DAILY fluticasone furoate-vilanterol [Breo Ellipta] 200-25 mcg/dose blister with device 1 inh inhalation DAILY albuterol sulfate 2.5 mg /3 mL (0.083 %) solution for nebulization 2.5 mg inhalation Q6H PRN (Reason: shortness of breath or wheezing) albuterol sulfate [Ventolin HFA] 90 mcg/actuation HFA aerosol inhaler 2 inh INHALATION Q4H PRN (Reason: shortness of breath or wheezing) voriconazole 200 mg tablet 200 mg PO Q12H colchicine 0.6 mg capsule 0.6 mg PO .QD Print Language: Bengali 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 Renzo Robert. 01/11 @ 10:15am [phone] Dr. Matias Pyle. 02/16 @ 11:00am [phone]
--- NOTE | 2025-01-06 13:09 | SWNOTE1 ---
SW called [facility] and they do not carry [place] Hyperextension Brace that is recommended.
--- NOTE | 2025-01-06 14:00 | CM.NOTE ---
DME order completed and signed by Dr. Reinoso for back brace. SW given script to fax to [facility] for back brace.
--- NOTE | 2025-01-06 14:12 | SWNOTE1 ---
ADRIANA called [facility]. [place] office was closed, but the [place] office is open. ADRIANA spoke to [facility]. They do have those Wilma Hyperextension back braces. She voiced they need an order, face sheet, and supporting documentation. She stated they will run everything through the insurance. Since she is discharging today, pt will need to call the [place] offer tomorrow morning and they will schedule a time for her to come in tomorrow and get fitted for it. They do have them in stock and she will be able to go home with one tomorrow. ADRIANA to send over the orders and supporting documentation to [facility]. ADRIANA updated the nurse. ADRIANA provided pt and with name, phone number, and address for [facility]. ADRIANA advised they will need to call tomorrow morning and schedule a time to go in and get fitted and get the brace. They voiced understanding.
--- NOTE | 2025-01-06 14:24 | SWNOTE1 ---
ADRIANA faxed CRF, dc med rec, and dc summary to [facility].
--- NOTE | 2025-01-08 14:04 | CM.DCFOLLOWU ---
Person spoke with:Ilana How are you feeling? Still having some pain How is your pain? Still about an 8 Did you understand your discharge instructions? Yes Do you have any questions about your discharge instructions? No Were you given any prescriptions at discharge? Yes Were you able to get your prescriptions filled? Not yet but her is going to pick them up today Do you understand how to take your medications as ordered? Yes Do you have any questions about your follow up appointment and do you plan to keep your follow up appointment? No questions and yes I plan on keeping my appt Is there anything else that you would like to discuss? No Questions/Comments/Concerns/Other: The patient confirmed that she went and got her back brace.
== END 2025-01-06 14:30 | disposition home health service (06) | DRG 281 ==
LOC: ER 15:53 → MS 17:33
PROVIDERS: Admitting Provider Internal Medicine; Emergency Provider Emergency Medicine; PCP Family Medicine; Visit Provider Internal Medicine
DX: I48.91 Unspecified atrial fibrillation (principal); I13.0 Hypertensive heart and chronic kidney disease with heart failure and stage 1 through stage 4 chronic kidney disease, or unspecified chronic kidney disease; I21.A1 Myocardial infarction type 2; M48.56XA Collapsed vertebra, not elsewhere classified, lumbar region, initial encounter for fracture; N39.0 Urinary tract infection, site not specified; R64 Cachexia; I50.9 Heart failure, unspecified; J44.9 Chronic obstructive pulmonary disease, unspecified; Z90.2 Acquired absence of lung [part of]; Z90.49 Acquired absence of other specified parts of digestive tract; Z98.49 Cataract extraction status, unspecified eye; Z96.641 Presence of right artificial hip joint; G47.00 Insomnia, unspecified; Z79.899 Other long term (current) drug therapy; D72.829 Elevated white blood cell count, unspecified; R50.9 Fever, unspecified; R54 Age-related physical debility; M54.50 Low back pain, unspecified; N18.9 Chronic kidney disease, unspecified; Z68.22 Body mass index [BMI] 22.0-22.9, adult
CPT/HCPCS: 36415; 71045; 72131; 72148; 76376; 80048; 80053; 80061; 81001; 82607; 82746; 83735; 84443; 84484; 85007; 85025; 85027; 87040; 87086; 87420; 87804; 87811; 93005; 93270; 93306; 96365; 96366; 96375; 96376; 97161; 97165; 97530; 97535; 99285; J0696; J1171; J7512

== ENCOUNTER 2025-02-24 08:07 | Outpatient (OUT) | payer MEDICARE, OTHER, SELFPAY ==
--- OUTSIDE RECORDS SUMMARY | 2025-02-11 05:14 | XMS_ITS | Continuity of Care Document ---
Author Organization [facility] Address [address] [place] [address] Phone Care Team Providers Care Oil Field Pumper Name Role Phone Erick Oliva DO Attending Provider Osei Phan MD Attending Provider Zack Muller MD Primary Care Provider Huy Garza MD Attending Provider [phone] Osei Phan MD Referring Provider [phone] Care Teams Patient Care Team Team Status: Active Member Role/Relationship Status Ian Muller MD Primary Care Provider Active Visit Care Team Team Status: Inactive Member Role/Relationship Status Ian Oliva DO Attending Provider Active S tart: January 03, 2025 End: January 03, 2025 Visit Care Team Team Status: Inactive Member Role/Relationship Status Ian Phan MD Attending Provider Active Star t: February 04, 2025 End: February 04, 2025Zack Muller MDPrimary Care ProviderActiveStart: February 04, 2025 End: February 04, 2025 Patient Care Team Team Status: Inactive Member Role/Relationship Status Ian Muller MD Primary Care Provider Active Start: February 11, 2025 End: February 11, 2025Thte Garza MDAttjose a ProviderActiveStart: February 11, 2025 End: February 11, 2025INGRID Lovingeferring ProviderActiveStart: February 11, 2025 End: February 11, 2025 Chief Complaint and Reason for Visit Chief Complaint Admit Date Unknown January 03, 2025 3 :17pm Wedge compression fracture of second lum bar verteb February 04, 2025 10:28am Ref: Dr. Emilie Phan - Sacrococcygeal Disor ders February 11, 2025 9:43am Reason for Visit Admit Date Lumbar compression fracture January 10:28am Reason for Referral Type Reason(s) Provider Provider Contact Information [facility] Address Start Date Pain of left sacroiliac joint M53.3 - Sacrococcygeal disorders, not elsewhere mvbnsxbuiyX48.3 - Sacrococcygeal disorders, not elsewhere classifiedThomas Tracie Garza MDWork Phone: [phone] [place] [id number] 2024 Allergies, Adverse Reactions, Alerts Allergen Type Severity Reaction Last Updated Verified Status aspirin Allergy Unknown Difficulty Breathing February 04, 2025 11:41am Yes Active codeine Allergy Unknown Difficulty Breathing February 04, 2025 11:41am Yes Active morphine Allergy Unknown Difficulty Breathing February 04, 2025 11:41am Yes Active propoxyphene Allergy Unknown Difficulty Breathing February 04, 2025 11:41am Yes Active sulfamethoxazole Allergy Unknown Difficulty Breathing February 04, 2025 11:41am Yes Active trimethoprim Allergy Unknown Difficulty Breathing February 04, 2025 11:41am Yes Active Social History Smoking Status Status Start Date End Date Date of Observa tion Never smoked tobacco (finding) February 04, 2025 2:40pm Observation Status Observation Response Date of Response Legal Sex Female (finding) [facility] Problems Active Problems Problem Diagnosis/Recorded Date Onset Date Status C omments Other chronic pain February 11, 2025 10:11am Unknown Active Lumbar compression fractureFebruary 04, 2025 11:50amUnknownActiveSacroiliitis, not elsewhere classifiedFebruary 11, 2025 10:10amUnknownActive Inactive/Resolved Problems Problem Diagnosis/Recorded Date Onset Date Status C omments Sternal pain May 22, 2018 9:48am Unknown Resolve d Problem List clean-up per request of Phys. EHR Cmte Insomnia May 29, 2018 10:16am Unknown Resolved P roblem List clean-up per request of Phys. EHR Cmte History of COPD May 22, 2018 9:48am Unknown Reso lved Problem List clean-up per request of Phys. EHR Cmte Status post fall May 27, 2018 10:42am Unknown Resolv ed Problem List clean-up per request of Phys. EHR Cmte Impaired mobility and ADLs May 27, 2018 10:44am Unknown Resolved Problem List clean-up per request of Phys. EHR Cmte Wrist pain May 26, 2018 9:59am Unknown Resolved Pr oblem List clean-up per request of Phys. EHR Cmte Vitamin B12 deficiency May 26, 2018 9:59am Unknown R esolved Problem List clean-up per request of Phys. EHR Cmte Gout of left wrist May 26, 2018 4:03pm Unknown Resol christiano Problem List clean-up per request of Phys. EHR Cmte Closed fracture of thoracic spine at T1-T3 level May 22, 2018 6:54am Unknown Resolved Probl em List clean-up per request of Phys. EHR Cmte DVT prophylaxis May 26, 2018 10:00am Unknown Resolve d Problem List clean-up per request of Phys. EHR Cmte Musculoskeletal pain May 27, 2018 10:43am Unknown Re solved Problem List clean-up per request of Phys. EHR Cmte Left wrist pain May 26, 2018 4:03pm Unknown Resolved Problem List clean-up per request of Phys. EHR Cmte Sternal fracture May 23, 2018 3:27pm Unknown Resolve d Problem List clean-up per request of Phys. EHR Cmte Vitamin D deficiency May 26, 2018 9:59am Unknown Res olved Problem List clean-up per request of Phys. [facility] Medic[facility] Medication Status Dose Units Route Directions Qty Days Refills S tart Date Stop Date End Date Reason(s) Instructions Adherence Ascorbic Acid (Vitamin C) (Vitamin C) 500 mg Tablet Discontinued 500 MG PO Daily 30 30 0 Mar 2018 11:00pm February 04, 2025 11:43amCalcitonin ([place]) 200 unit/actuation [place],Non-LnmcgjlJflswjolvxrf5JDMHWRQCAKIFxclb4.7300[facility] 2018 11:00pm February 04, 2025 11:43amColchicine (Colcrys) 0.6 mg TabletDiscontinued0.6MGPO DAILY@[id number] 2018 11:00pmApril 2018 11:00pmApril 2018 11:16pmCholecalciferol (Vitamin D3) (Vitamin D3) 1,000 unit TabletDiscontinued 5875WWZBTVXjvmk07364Fbpus 2018 11:00pmNovember 2024 11:43am Fluticasone Propion-Salmeterol (Advair Hfa) 115-21 mcg/actuation Hfa Aerosol EcmoxrrSzuogphqpnlw3WPVTTDKWVIYQOAPcssu mggfr78185Ornpz 2018 11:00pm February 04, 2025 11:43amOmeprazole 20 mg Capsule,Delayed Release(Dr/Ec) Yddcmvqzqqfv80KDAPGemlc22870Pmmyx 2018 11:00pmApril 2018 11:00pmApril 2018 11:16pmZolpidem 5 mg GwypeaGxuyrhfgjsgt0YVVWGogvy at bedtime as needed for Lkbeq66770Ivewl 2018 11:[facility]pm[facility]pm[facility] 2018 11:02pmInsomnia, unspecifiedAmlodipine 2.5 mg TabletDiscontinued2.6VGPJJdwce3319 0[facility] 2018 11:00pmApril 2018 11:00pmApril 2018 11:16pmOxycodone 5 mg LbsbuaDfxuduwfahcg7KUKHCyond 4 hours as needed for breakthrough pain, xbxcem9427Mukrn 2018[facility] 2018 11:[facility]pm[facility] 2018 11:02pmPain, unspecifiedLansoprazole (Prevacid) 15 mg Capsule,Delayed Release(Dr/Ec) Tarefytamngp89MBDUGufphZkhmsqfq 2018 12:[facility]am[facility] 10:30am Albuterol Sulfate 90 mcg/actuation Hfa Aerosol DczhabgIoqjotdsqifc6MQYNFaxod 6 hours as needed for Shortness Of Breath Or WheezingFeuary 2018 12:00am June 02, 2018 10:27amFluticasone Furoate-Vilanterol 100-25 mcg/dose blister with refqdkVzmawgnuluib4CDIQLUOPXQDTFIVwrnlFolaeiya 2018 12:[facility]am[facility] 2018 10:30amAcetaminophen 325 mg SsaodmWqbncxncmcsk731SVJBU8E as needed for Pain 1-5 or dxuwa3Aofna 2018 12:[facility] 2018 10:27amIbuprofen 800 mg FqrfgpHvpfgwibudtl057EDPRKjltd times ztepl06Yousx 2018 12:[facility] 2018 10:30amAscorbic Acid (Vitamin C) (Vitamin C) 500 mg Tablet Vexfoedzvkyv081STKCYyvuo9Faqsv 2018 12:[facility] 2018 10:28am Calcitonin ([place]) 200 unit/actuation [place],Non-AqesyfwEdnqpvrqbnhv6QFJTREUIZFJ Bqvil5Iinid 2018 12:[facility] 2018 10:28amColchicine (Colcrys) 0.6 mg TabletDiscontinued0.6MGPODAILY@95372Ysqbl 2018 12:[facility] 2018 10:29amHeparin (Porcine) 5,000 unit/mL EnbmditbVrnmqejbqyjm5846ZTXWHXTAZVKzobe 12 rcigt4Uouzp 2018 12:[facility] 2018 10:27amOxycodone 5 mg Tablet Ynxoxgzzjtbd2OQEVPcqsq 8 hours as needed for Breakthrough Mgdq3Uvnrr 2018 12:[facility] 2018 10:30amCholecalciferol (Vitamin D3) (Vitamin D3) 1,000 unit HcvxdsNrqjbwhwscfp6295SGUDRKXeagt0Ixnbg 2018 12:[facility] 2018 10:29amOndansetron Hcl (Pf) 4 mg/2 mL RswkwkvrRcvsooucjypw0NURK-PJFMS6R as needed for Nausea And Yifekitj4Baozr 2018 12:[facility] 2018 10:30am Cyanocobalamin (Vitamin B-12) (Vitamin B-12) 500 mcg GdlxsgWtedkmrtaxmb041ZSDHI Jdufw653Nkblr 2018 12:[facility] 2018 10:27amDiclofenac Sodium (Voltaren) 1 % GasWyuqvvvhgnqi2TTILSKAIWItuoo tvocs7134Ubdto 2018 12:00am June 02, 2018 10:29amApply to left wristPantoprazole 20 mg tablet,delayed release (DR/EC)Isxipo29WDVVYgnfgNazohfmi 13th, 2025 12:00amComplies with drug therapyCalcitonin ([place]) 200 unit/mL uplxnjosWjollb638MSOFISSlgktJzsvwwfu 2024 12:00amComplies with drug therapyFluticasone Furoate-Vilanterol (Breo Ellipta) 200-25 mcg/dose blister with iordozDvpezv2QLEIZBOMFANXINyoacXifehjcg 13th, 2025 12:00amComplies with drug therapyOxycodone 5 mg dejdhoCnkdmg7WWXQ Every 6 hours as ccckjs7Avyilxdo2024 12:00amComplies with drug therapy Procedures Procedure Date Performed Status Urine Culture January 03, 2025 completed Relevant Diagnostic Tests and/or Laboratory Data Microbiology Results Procedure Source Result Collection Date/Time Result Date/Time Result Comment Performing Site Urine Culture Urine No Growth 2 Days January 032024 3:17pm January 06, 2025 10:59am [facility] [id number] [address] [place], [place] [id number] Vital Signs Vital Reading Result Reference Range Collection Date/Time Height 64 [in_i] February 04, 2025 11:10ooAcghfx99.00 kgFebruary 04, 2025 11:40amBMI (Body Mass Index)21.2 kg/y2NxqtmhofFebruary 04, 2025 11:40am Advance Directives Advance Directive Response Recorded Date/ Time Advance Directives No January 2:40pm Insurance Providers Guarantor Ilana Sears Oscar Address [address] [place] [id number] Info.Home Phone: Coverage Status Update:2024 Payer Group Member ID Coverage Type Subscriber Relationship to Subscriber Effective Date Expiration Date Medicare [id number] Renu Oscar Id: [id number] [address] [place] [id number] Home Phone: Email: declined [id number] [id number] L Drown Id: [id number] [address] [place] [phone] Home Phone: Email: declined 18Self Encounters Encounter Location(s) Arrival/Admit Date Discharge/Departure Date Discharge/Departure Disposition Provider(s) Departed Referred -[facility] January 03, 2025 3:17pm January 03, 2025 3:18pm Discharged to home care or self care (routine discharge) Gurdeep Marie DO Departed Physician/ Provider Office Visit -[facility] February 04, 2025 10:28am February 04, 2025 12:03pm Discharged to home care or self care (routine discharge) Osei Phan MD Departed Physician/ Provider Office Visit -[facility] February 11, 2025 9:43am February 11, 2025 10:13am Discharged to home care or self care (routine discharge) Tracie Bartlett MD Recent Diagnosis Onset Date Admit Date Lumbar compression fracture Unknown Dann jared 2024 10:28am Assessments Diagnosis Onset Date Resolution Status Admit Date Lumbar compression fracture acuteNovember 2024 10:28am Plan of Treatment Author Osei Phan [facility] 2024 12:43pm Independently reviewed the CT of the thoracic and lumbar spine which shows a new fracture at L1 confirmed by some bone edema. The canal is adequate. However the patient's pain is sacroiliac only not over the fracture and a vertebral augmentation procedure is not of significant benefit if the pain is elsewhere. I think the patient should see pain management consider sacroiliac injections and/or trigger point injections to try to make her better she should continue to wear the Somi brace and be seen by my nurse practitioner in 30 days. We should be getting over the DEXA scan from [facility] for evaluation. At that point further wearing of the brace will be determined also a AP and lateral x-ray of the lumbar spine to ensure she has not lost bone hide should be done prior to visit Future Tests Future scheduled test information is unavailable Pending Tests Pending diagnostic test information is unavailable Future Visits Future appointment information is unavailable Future Procedures Future procedure information is unavailable Future Medications Future medication information is unavailable Patient Instructions Patient instructions are unavailable
--- OUTSIDE RECORDS SUMMARY | 2025-02-16 11:00 | XMS_ITS | Encounter Summary ---
Author Organization [facility] Address [address] [place] [address] Care Team Providers Care Rat Trapper Name Role Phone Zack Muller MD Primary Care Provider [phone] Reason for Visit * ReasonCommentsFollow-upCongestive Heart FailureHypertension Encounter Details DateTypeDepartmentCare Team (Latest Contact Info)Vofghvbuxnj65/25/2025 11:00 AM ESTOffice Visit [facility] [place] [address] [place] [address] Lefty Salcedo MD [address] [place] [id number] Paroxysmal atrial fibrillation (CMS/HCC) (Primary Dx) Social History Tobacco UseTypesPacks/DayYears UsedDateSmoking Tobacco: NeverSmokeless Tobacco: Never Tobacco Cessation:Counseling Given: Not Answered CommentsUnknownSex and Gender InformationValueDate RecordedSex Assigned at MpkdmGrowvz62/18/2025 3:31 PM ESTLegal FhxHkrskm70/29/2022 10:23 PM EDTGender HlywullbNvvuol11/18/2025 3:31 PM ESTSexual OrientationHeterosexual or Straight 02/09/2025 3:31 PM ESTdocumented as of this encounter Last Filed Vital Signs Vital SignReadingTime TakenCommentsBlood Xkzmjilx482/7702/16/2025 11:17 AM EST Beygp021102/16/2025 11:17 AM ESTTemperature--Respiratory Rate--Oxygen Saturation 100%02/16/2025 11:17 AM ESTInhaled Oxygen Concentration--Lydylc21.4 kg (120 lb) 02/16/2025 11:17 AM CAZSacetq320 cm (5' 3 )02/16/2025 11:17 AM ESTBody Mass Index21.26104/18/2024 11:17 AM ESTdocumented in this encounter Progress Notes * Lefty Salcedo MD - 02/16/2025 11:00 AM EST Images from the original note were not included. [place] [facility] Consult Note [place] [facility] - [facility] Reason for visit: Afib HPI: Ilana Moore is a 74 y.o. year old with past medical history of COPD, bronchiectasis with right middle lobe lobectomy done in 2007, hypertension, CKD was recently admitted to [facility] 01/03/2025 and noted to be in atrial fibrillation with rapid ventricular rate in the 140s. She was given Cardizem for rate control and subsequently converted to sinus rhythm on her own. She was seen at that time by David Mccabe NP and an echocardiogram revealed normal systolic function and normal atrial size. Given that her POU4UZ0-ATXj score was 4 she was advised to follow-up in EP clinic. She was given event monitor which has revealed the presence of recurrence of atrial fibrillation and she is currently not on any anticoagulation probably aspirin. Patient denies chest pain. Patient complains of SOB/SHANKS, leg swelling, dizziness/lightheaded, nausea/vomiting. Patient wont eat/drink due to vomiting after eating/drinking PMH: Medical History[1] PSH: Surgical History[2] SH: Social Drivers of Health Tobacco Use: Low Risk (02/16/2025) Patient History Smoking Tobacco Use: Never Smokeless Tobacco Use: Never Passive Exposure: Not on file Alcohol Use: Not on file Financial Resource Strain: Not on file Food Insecurity: Not on file Transportation Needs: Not on file Physical Activity: Not on file Stress: Not on file Social Connections: Not on file Intimate Partner Violence: Not on file Depression: Not on file Housing Stability: Not on file Utilities: Not on file Health Literacy: Not on file Allergies: Allergies[3] Weight: 54.4kg Visit Vitals BP 125/77 (BP Location: Left arm, Patient Position: Sitting) Pulse 91 Ht 1.6 m (5' 3 ) Wt 54.4 kg (120 lb) SpO2 100% BMI 21.26 kg/m?? Smoking Status Never BSA 1.55 m?? Meds: Medications Ordered Prior to Encounter[4] ROS: Review of Systems Constitutional: Positive for decreased appetite, malaise/fatigue and weight loss. Cardiovascular: Positive for dyspnea on exertion and leg swelling. Respiratory: Positive for shortness of breath. Gastrointestinal: Positive for nausea and vomiting. Neurological: Positive for dizziness and light-headedness. Physical Exam: Constitutional General Appearance: well-nourished, well-developed, appears stated age Level of Distress: comfortable Eyes SUSANA Neck Neck: supple, trachea midline Carotid Arteries: bilateral normal upstroke, no bruits Jugular Veins: normal jugular venous pressure Thyroid: not enlarged Lungs Respiratory Effort: unlabored Chest Exam: normal curvature, no thoracic deformity Auscultation: clear, no wheezing, no rales, no rhonchi Cardiovascular Chest wall: Rate And Rhythm: regular Heart Sounds: normal S1, normal s2, no gallop Systolic Murmur: not heard Diastolic Murmur: not heard Extremities: no cyanosis, no edema, no peripheral signs of emboli Peripheral Pulses Radial Pulse: normal Abdomen Inspection and Palpation: soft, non distended, no bruit, non tender Neurologic Gait: normal gait Labs: @LABRESULTS@ No results found for: CHOLESTEROL TOTAL , HDL , LDL CALC , LDL DIRECT , TRIGLYCERIDES , TSH , T3 TOTAL , T4 TOTAL , THYROID PEROXIDASE AB , BNP EKG: Echo: 01/04/2025 Stress test: Coronary angiogram: @CATH@ Event monitor This revealed evidence of recurrence of atrial fibrillation as well as occasional PVCs Assessment and Plan: - New onset atrial fibrillation - Hypertension - COPD - Bronchiectasis s/p lobectomy in 2007 Given the new evidence of atrial fibrillation and recurrence of A-fib, I suggested the patient undergo a stress test so that she can be placed on class Ic drugs after CAD is ruled out. She is quite frail and given her underlying COPD is not an ideal candidate for amiodarone or ablation at the moment. If we can keep her in sinus rhythm with class Ic drugs that would be ideal. Given that her IQB0OD9-XUQq score is 4 I would recommend that she be started on anticoagulation I have given her the option of checking with the pharmacy to see whether Eliquis or Xarelto would be affordable for her. Oncewe know that I will give her a prescription to one of them and also gave given her the details of the [place] pharmacies as an option Lefty Salcedo MD Cardiac Electrophysiology [facility] [1] History reviewed. No pertinent past medical history. [2] History reviewed. No pertinent surgical history. [3] Allergies Allergen Reactions Aspirin Shortness of breath and Unknown Codeine Shortness of breath and Unknown Hydrocodone-Acetaminophen Shortness of breath and Unknown Propoxyphene Shortness of breath and Unknown Propoxyphene N-Acetaminophen Unknown Sulfamethoxazole Other Trimethoprim Other [4] Current Outpatient Medications on File Prior to Visit Medication Sig Dispense Refill albuterol 90 mcg/actuation inhaler Inhale 1 puff every 6 (six) hours if needed. calcitonin, salmon, (Miacalcin) 200 unit/actuation nasal spray Administer 1 spray into one nostril in the morning. ferrous sulfate 325 (65 Fe) MG tablet Take by mouth every 12 (twelve) hours. Not taking due to it making her sick fluticasone furoate-vilanteroL (Breo Elipta) 200-25 mcg/dose inhaler Inhale 1 puff in the morning. ondansetron ODT (Zofran-ODT) 4 mg disintegrating tablet Take 4 mg by mouth if needed. oxyCODONE (Roxicodone) 5 mg immediate release tablet Take 1 tablet by mouth every 6 (six) hours. pantoprazole (ProtoNix) 20 mg EC tablet Take 20 mg by mouth before breakfast. cholecalciferol, vitamin D3, 50 mcg (2,000 unit) capsule 1 capsule 1 (one) time each day at the same time. Not taking (Patient not taking: Reported on 02/16/2025) metoprolol tartrate (Lopressor) 25 mg tablet Take 25 mg by mouth two times daily. (Patient not taking: Reported on 02/16/2025) No current facility-administered medications on file prior to visit. documented in this encounter Plan of Treatment Not on file documented as of this encounter Procedures Procedure NamePriorityDate/TimeAssociated DiagnosisCommentsECG 12 LEAD UNIT SLKUGDPORZxivhbn08/25/2025 11:18 AM EST Paroxysmal atrial fibrillation (CMS/HCC) documented in this encounter Results * ECG 12 lead unit performed (02/16/2025 11:18 AM EST)Specimen (Source) Anatomical Location / LateralityCollection Method / VolumeCollection Time Received Time Narrative Authorizing ProviderResult TypeResult StatusPatony WATTS ORDERABLESFinal Result documented in this encounter Visit Diagnoses Diagnosis Paroxysmal atrial fibrillation (CMS/HCC)- Primary Atrial fibrillation documented in this encounter Care Teams Team MemberRelationshipSpecialtyStart DateEnd Date Zack Muller MD [address] [place] [address] PCP - GeneralFamily Eimyhvex98/25/25documented as of this encounter
--- NOTE | 2025-02-24 07:40 | NM_ITS ---
Patient Name: DARRYL ZAYAS MR#: [id number] : 1950 Exam Date: 02/24/2025 Ordering Doctor: [facility]OLOG[facility] REPORT PROCEDURE: NM CONI PERF SPECT REST STR COMPARISON: None. INDICATIONS: PAROXYSMAL ATRIAL FIBRILLATION, CORONARY ARTERY DISEASE TECHNIQUE: Exam Description: Stress/Rest one day protocol gated SPECT Rest Imagin.1 mCi Tc-99m Cardiolite IV on 02/24/2025 Stress Imaging 31.3 mCi Tc-99m Cardiolite IV on 02/24/2025 Exercise Protocol: 0.4 mg Lexiscan given IV Heart Rate (bpm): Rest: 91 Max: 114 PMHR: 79 Blood Pressure: Rest: 164/84 Max: 164/84 Symptoms: Rest and peak stress ECG findings were pending and the exercise portion of the study was pending per attending physician [facility] . For more details please see separate cardiac stress test report. FINDINGS: QUALITY OF STUDY: Good PERFUSION DEFECT none LOCATION: SIZE: SEVERITY: TYPE: WALL MOTION: Normal LV SIZE: 32 mL. TID / TCD: 0.8 LVEF: Calculated EF 94%. SUMMARY: Normal myocardial perfusion imaging study CONCLUSION: Normal myocardial perfusion nuclear images without evidence of ischemia or infarction Normal left ventricle systolic function, EF above 80% No transient ischemic dilatation, TID 0.8 EKG portion of stress test is reported separately Dictated by: Jodi Manzano MD on 03/01/2025 at 17:55 Approved by: Jodi Manzano MD on 03/01/2025 at 17:58
--- OUTSIDE RECORDS SUMMARY | 2025-02-24 08:10 | XMS_ITS | Encounter Summary ---
Author Organization [facility] Address [address] [place] [address] Care Team Providers Care Server Support Technician Name Role Phone Zack Muller MD Primary Care Provider [phone] Encounter Details DateTypeDepartmentCare Team (Latest Contact Info)Teundcrmaxr29/25/2025Orders Only [facility] at [facility] [address] [place] [address] Dee Dee Maloney MA Paroxysmal atrial fibrillation (CMS/HCC) (Primary Dx); 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 plaque Social History Tobacco UseTypesPacks/DayYears UsedDateSmoking Tobacco: NeverSmokeless Tobacco: NeverCommentsUnknownSex and Gender InformationValueDate RecordedSex Assigned at WmdrrNybxve46/18/2025 3:31 PM ESTLegal RcoPzduox59/29/2022 10:23 PM EDTGender WxcumsnlYvxlsy68/18/2025 3:31 PM ESTSexual OrientationHeterosexual or Dznnddjr98/18/2025 3:31 PM ESTdocumented as of this encounter Plan of Treatment NameTypePriorityAssociated DiagnosesOrder ScheduleLexiscan Stress Myocardial Perfusion ImagingCardiac ServicesRoutine Paroxysmal atrial fibrillation (CMS/HCC) 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 plaque Expected: 02/16/2025 (Approximate), Expires: 02/16/2027documented as of this encounter Visit Diagnoses Diagnosis Paroxysmal atrial fibrillation (CMS/HCC)- Primary Atrial fibrillation 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 plaque documented in this encounter Care Teams Team MemberRelationshipSpecialtyStart DateEnd Date Zack Muller MD [address] [address] PCP - GeneralFamily Evrheqrj59/25/25documented as of this encounter
--- OUTSIDE RECORDS SUMMARY | 2025-02-24 08:10 | XMS_ITS | Clinical Summary ---
Author Organization [facility] Address [address] [place] [address] Care Team Providers Care Lace Pinner Name Role Phone Unavailable Primary Care Provider Unavailabl e Social History Tobacco UseTypesPacks/DayYears UsedDateSmoking Tobacco: Never Assessed CommentsUnknownSex and Gender InformationValueDate RecordedSex Assigned at Not on fileLegal XsqVzscte16/15/2023 9:28 PM EDTGender IdentityNot on fileSexual OrientationNot on file Last Filed Vital Signs Vital SignReadingTime TakenCommentsBlood Zyzyfmqq479/9508 12:00 PM EDT Pulse--Temperature--Respiratory Rate--Oxygen Saturation--Inhaled Oxygen Concentration--Nkwagu26.3 kg (144 lb)11/11/2018 12:00 PM HBPKtznqc452.1 cm (5' 5 )11/11/2018 12:00 PM EDTBody Mass Index23.9611/11/2018 12:00 PM EDT Plan of Treatment Not on file
--- OUTSIDE RECORDS SUMMARY | 2025-02-24 08:10 | XMS_ITS | Clinical Summary ---
Author Organization [facility] Address [address] [place] [address] Care Team Providers Care C S S Representative Name Role Phone Zack Muller MD Primary Care Provider [phone] Allergies Active AllergyReactionsCriticalityNoted DateCommentsAspirinShortness of breath, HpipvlgRsul40/29/2011CodeineShortness of breath,RbdgtskTufp16/13/2025 Hydrocodone-AcetaminophenShortness of breath,NuzhssmCaew78/13/2025Propoxyphene Shortness of breath,SvtjjsbEvwd03/13/2025Propoxyphene N-AcetaminophenUnknown 01/04/20254639DvqnoxommxqdxdghXfsmc91/13/9528NrrcrwihlsfsXsfus18/13/2025 Medications MedicationSigDispense QuantityRefillsLast FilledStart DateEnd DateStatus albuterol 90 mcg/actuation inhaler Inhale 1 puff every 6 (six) hours if needed.Active ferrous sulfate 325 (65 Fe) MG tablet Take by mouth every 12 (twelve) hours. Not taking due to it making her sick Active fluticasone furoate-vilanteroL (Breo Elipta) 200-25 mcg/dose inhaler Inhale 1 puff in the morning.4Active metoprolol tartrate (Lopressor) 25 mg tablet Take 25 mg by mouth two times daily.Active pantoprazole (ProtoNix) 20 mg EC tablet Take 20 mg by mouth before breakfast.5Active calcitonin, salmon, (Miacalcin) 200 unit/actuation nasal spray Administer 1 spray into one nostril in the morning.5Active cholecalciferol, vitamin D3, 50 mcg (2,000 unit) capsule 1 capsule 1 (one) time each day at the same time. Not takingActive oxyCODONE (Roxicodone) 5 mg immediate release tablet Take 1 tablet by mouth every 6 (six) hours.5Active ondansetron ODT (Zofran-ODT) 4 mg disintegrating tablet Take 4 mg by mouth if needed.5Active rivaroxaban (Xarelto) 20 mg tablet Indications:Paroxysmal atrial fibrillation (CMS/HCC)Take 1 tablet (20 mg) by mouth daily with evening meal. Take with food. 90 tablet 5Active Active Problems ProblemNoted DateDiagnosed DateAtrial mlgaokltmbnj60/25/2025Encounter for prophylactic measures, zifygbhwovb31/20/2025 Overview (02/11/2025): Problem List clean-up per request of Phys. EHR Cmte Fracture of thoracic spine02/11/2025 Overview (02/11/2025): Problem List clean-up per request of Phys. EHR Cmte Gout of left wrist02/11/2025 Overview (02/11/2025): Problem List clean-up per request of Phys. EHR Cmte History of COPD02/11/2025 Overview (02/11/2025): Problem List clean-up per request of Phys. EHR Cmte Left wrist pain02/11/2025 Overview (02/11/2025): Problem List clean-up per request of Phys. EHR Cmte Lumbar compression obsklwjd14/20/2025Other chronic pain02/11/2025Sacroiliitis, not elsewhere qmoslyling97/20/2025Status post fall02/11/2025 Overview (02/11/2025): Problem List clean-up per request of Phys. EHR Cmte Sternal pain02/11/2025 Overview (02/11/2025): Problem List clean-up per request of Phys. EHR Cmte Znkyewizdd37/13/0386Ikjtyj68/13/2025Back pain01/04/20256716Ufommgyn61/13/2025 Allergic bronchopulmonary ftmtrvpitxjsd65/13/5804Cedplzyhojsuyu82/13/2025 Chondrodermatitis nodularis ehcbftp9501/04/2025hronic obstructive pulmonary qntgsro9101/04/2025losed fracture of fbpvfcq0901/04/2025ongestive heart failure 01/04/2025ontusion of right knee01/04/20255830Ovepdss62/13/2691Ykjahf18/13/2025 Edema01/04/2025Gastroesophageal reflux zanrusm9901/04/20255206Vvgaglhjpl77/13/2025Gout 01/04/20253323Melhiyujpiuw01/13/8198Zcrylkjw46/13/2025Neoplasm of uncertain behavior of skin01/04/20258871Myvnajbgax57/13/7556Jtwxvukipnlv68/13/2177Pdxxyzxequ59/13/2025 Stage 3 chronic kidney abdxcbm9601/04/2025Vitamin B12 deficiency (non anemic) 01/04/2025Vitamin D fvoigrmpxm52/13/2025Left knee pain11/20/2010ftercare for healing pathologic fracture of hip11/17/2010 Overview (01/04/2025): Left Pathologic fracture of neck of femur09/20/2010 Encounters DateTypeDepartmentCare ZpciEgqbykvkiiz00/25/2025 11:00 AM ESTOffice Visit [place] [address] [place] [address] Lefty Salcedo MD Paroxysmal atrial fibrillation (CMS/HCC) (Primary Dx)02/16/2025Orders Only [facility] [address] [place] [address] Dee Dee Maloney MA Paroxysmal atrial fibrillation (CMS/HCC) (Primary Dx); 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 plaquefrom Last 3 Months Family History RelationNameStatusCommentsFatherDeceasedMotherDeceased Social History Tobacco UseTypesPacks/DayYears UsedDateSmoking Tobacco: NeverSmokeless Tobacco: Never Tobacco Cessation:Counseling Given: Not Answered CommentsUnknownSex and Gender InformationValueDate RecordedSex Assigned at UxohoNstaai50/18/2025 3:31 PM ESTLegal JamDymygu93/29/2022 10:23 PM EDTGender BsqqzdsoQuekqw19/18/2025 3:31 PM ESTSexual OrientationHeterosexual or Straight 02/09/2025 3:31 PM EST Last Filed Vital Signs Vital SignReadingTime TakenCommentsBlood Boziqhxc462/7702/16/2025 11:17 AM EST Tpmyq331902/16/2025 11:17 AM ESTTemperature--Respiratory Rate--Oxygen Saturation 100%02/16/2025 11:17 AM ESTInhaled Oxygen Concentration--Qhkmyw24.4 kg (120 lb) 02/16/2025 11:17 AM RAAEdzpgt851 cm (5' 3 )02/16/2025 11:17 AM ESTBody Mass Index21.26104/18/2024 11:17 AM EST Plan of Treatment Health MaintenanceDue DateLast DoneCommentsMedicare Annual Wellness (AWV) 1950Depression Cbzgargrn76/01/1961Adult Xaznyzr7102/22/1971Zoster Vaccines (1 of 2)1999Fall Risk Yeyrqsixi38/01/2014Pneumococcal Vaccine: 50+ Years (2 of 2 - PPSV23, PCV20, or PCV21)COVID-19 Vaccine ( season)51, 01/04/2024, 01/05/2023, Additional history existsInfluenza ImiupunXvzuytyiu68/03/2025, 03/06/2024, 01/22/2023, Additional history existsHIB VaccinesAged OutNo longer eligible based on patient's age to complete this topicHPV VaccinesAged OutNo longer eligible based on patient's age to complete this topicIPV VaccinesAged OutNo longer eligible based on patient's age to complete this topicMeningococcal B VaccineAged OutNo longer eligible based on patient's age to complete this topicMeningococcal VaccineAged OutNo longer eligible based on patient's age to complete this topicRotavirus Vaccines Aged OutNo longer eligible based on patient's age to complete this topic Procedures Procedure NamePriorityDate/TimeAssociated DiagnosisCommentsECG 12 LEAD UNIT KKCGMRAIDIlvwdkm23/25/2025 11:18 AM EST Paroxysmal atrial fibrillation (CMS/HCC) from Last 3 Months Results * ECG 12 lead unit performed (02/16/2025 11:18 AM EST)Specimen (Source) Anatomical Location / LateralityCollection Method / VolumeCollection Time Received Time Narrative Authorizing ProviderResult TypeResult StatusPatony Salcedo MDECG ORDERABLESFinal Result from Last 3 Months Insurance * Guarantor: Ilana Moore TypeRelation to PatientDate of BirthPhone Billing AddressPersonal/EbzpknEsma1950 [address] [address] MemberSubscriberPlan / Payer (Effective 2009-Present)Name:Ilana Moore Member ID:[id number] Relation to Subscriber:SelfName:Oscar Ilana L Subscriber ID:[id number] Payer ID:[id number] Group ID:Not on file Type:Medicare Address: [facility] [place] [id number] Care Teams Team MemberRelationshipSpecialtyStart DateEnd Zack Muller MD [address] [address] [address] [address] PCP - GeneralFamily Vzknxgbm02/25/25
--- OUTSIDE RECORDS SUMMARY | 2025-02-24 08:11 | XMS_ITS | CCD ---
Author Organization [facility] Care Team Providers Care Kettle Skimmer Name Role Phone RENZO ., DR CARREON Admitting Unavailable HOY ., [...] DR CARREON Attending Unavailable HOY ., DR CRAREON Primary Care Unavailable HOY ., DR CARREON Consulting Unavailable HOY ., DR CARREON Admitting Unavailable HOY ., DR CARREON Attending Unavailable HOY ., DR CARREON Primary Care Unavailable HOY ., DR CARREON Consulting Unavailable RustyyAvinashVelma Primary Care Physician MD Galileo Cleary Attending Provider [phone] Galileo CLEARY Attending Unavailable Galileo CLEARY Attending Unavailable Velma Muller Referring Unavailable Galileo CLEARY Attending Unavailable Erick Oliva DO Attending Provider Erick Oliva Attending Unavailable Erick Oliva Admitting Unavailable Allergies Allergy ClassificationReported Allergen(s)Allergy TypeDate of OnsetReaction(s) Facility (4 sources)Aspirin; Translations: [aspirin]Drug Bxqxpxb89-82-7417Hplqebozjt [facility] ([facility] sources)Codeine; Translations: [codeine]Drug Oluuinn89-32-6070Hizokybrve [facility] (4 sources)Morphine; Translations: [morphine]Drug Ctwpgyp20-18-3178Kggvjpsfog [facility] (2 sources)Propoxyphene; Translations: [Darvon]Drug Hhfrccm81-82-1473BzsL[facility] Hospital Repository (1 source)Sulfamethoxazole / TrimethoprimDrug Ooququn98-43-4193MvyLutheran Hospital Repository (3 sources)Acetaminophen / HYDROcodone; Translations: [acetaminophen-hydrocodone]Drug AllergyDyspnea (finding)[facility] (2 sources)Aspirin; Translations: [aspirin]Drug AllergyDyspnea (finding)[facility] (2 sources)Codeine; Translations: [codeine]Drug AllergyDyspnea (finding)[facility] (2 sources)Morphine; Translations: [morphine]Drug AllergyDyspnea (finding) [facility] (4 sources)Propoxyphene; Translations: [propoxyphene]Drug Rxsnupw97-24-4904 Dyspnea (finding)[facility] (3 sources)Sulfamethoxazole; Translations: [sulfamethoxazole]Drug Allergy 40-81-2913Phhnftirwl [facility] (3 sources)Trimethoprim; Translations: [trimethoprim]Drug Iqbzacg02-31-4860 Difficulty [facility] (1 source)AspirinDrug Ofkocnn38-85-0072UmkrtfiafHocking Valley [facility] Hospital Repository (1 source)CodeineDrug Ajarwzo46-67-9860XukxpihcgHocking Valley Community Hospital Repository (1 source)MorphineDrug Dywhivg18-43-8945QhzlwtugtHocking Valley Community Hospital Repository (1 source)PropoxypheneDrug Oukgsmt76-95-2226OdellzyfvHocking Valley Community Hospital Repository Medications Current Medications MedicationDrug Class(es)DatesSig (Normalized)Sig (Original)albuterol 0.83 mg/ml inhalation solution (4 sources)beta2-Adrenergic AgonistStart: 80-36-5588zztu 2.5 mg by inhalation every six hoursalbuterol 0.083% Inh Marlene 3 mL 2.5 mg, 3 mL, NEB, q6hr Shortness of breath or wheezing, Refill(s) 0 Start Date: 07/19/23 Status: OrderedStart: 05-21-2018 End: 35-30-5788rled 1 puff(s) by inhalation every six hours as needed for wheezingAlbuterol Sulfate 90 mcg/actuation Hfa Aerosol Inhaler Discontinued 2 PUFF Every 6 hours as needed for Shortness Of Breath Or Wheezing May 21, 2018 1:00am June 02, 2018 11:27amStart: 05-21-2018 End: 78-38-5086Kusphifwl Sulfate Discontinued 2 PUFF Every 6 hours May 21, 2018 1:00am June 02, 2018 11:27amascorbic acid 500 mg oral tablet (4 sources)Vitamin CStart: 05-26-2018 End: 15-14-2248tume 1 tablet by mouth once dailyBreo Ellipta 200 mcg-25 mcg/inh inhalation powder (2 sources)Start: 45-63-4328qkce 1 puff(s) by inhalation once dailyBreo Ellipta 200 mcg-25 mcg/inh inhalation powder 1 puff(s), Inhalation, Daily, Refill(s) 0 Start Date: 07/19/23 Status: Orderedcholecalciferol 0.025 mg oral tablet (4 sources)Vitamin DStart: 05-26-2018 End: 06-89-6436abvh 2 tablets by mouth once dailycolchicine 0.6 mg oral tablet (6 sources)Start: 52-09-3450qqdy 1 tablet by mouth once dailycolchicine 0.6 mg Tab 0.6 mg = 1 tab(s), Oral, Daily, Refills(s) 0 Start Date: 07/31/23 Status: OrderedStart: 05-26-2018 End: 89-45-6000eztr 1 tablet by mouth once dailyColchicine (Colcrys) 0.6 mg Tablet Discontinued 0.6 MG PO DAILY@1530 30 30 June 02, 2018 12:00amApril 2018 12:00am July 02, 2018 12:16amFluticasone Propion-Salmeterol (2 sources)Corticosteroid, beta2-Adrenergic AgonistStart: 89-62-4583mlfk 1 puff(s) by inhalation twice dailyStart: 52-16-8888wmlc 1 puff(s) by inhalation twice dailyFluticasone Propion-Salmeterol (Advair Hfa) 115-21 mcg/actuation Hfa Aerosol Inhaler Active 2 PUFF INHALATION Twice daily 30 June 02, 2018 12:00amlansoprazole 15 mg disintegrating oral tablet (4 sources)Proton Pump InhibitorStart: 72-44-9408rdgw 1 tablet by mouth once dailylansoprazole 15 mg Dis Tab 15 mg = 1 tab(s), Oral, Daily, Refills(s) 0 Start Date: 07/19/23 Status: OrderedStart: 05-21-2018 End: 27-69-1984olfo 1 capsule by mouth once dailyLansoprazole (Prevacid) 15 mg Capsule,Delayed Release(Dr/Ec) Discontinued 15 MG PO Daily May 21, 2018 1:00am June 02, 2018 11:30amoxyCODONE hydrochloride 5 mg oral tablet (6 sources)Opioid AgonistStart: 35-00-9267pmts 1 tablet by mouth once daily as needed for painoxyCODONE 5 mg Tab 5 mg = 1 tab(s), Oral, Daily, PRN as needed for pain, Refills(s) 0 Start Date: 07/19/23 Status: OrderedStart: 06-03-2018 End: 31-18-7577xqym 1 tablet by mouth every four hours as needed for pain Oxycodone 5 mg Tablet Discontinued 5 MG PO Every 4 hours as needed for breakthrough pain, severe 305 June 03, 2018 June 07, 2018 12:00am June 08, 2018 12:02amStart: 05-26-2018 End: 51-81-3466taek 1 tablet by mouth every eight hours as needed for pain Oxycodone 5 mg Tablet Discontinued 5 MG PO Every 8 hours as needed for Breakthrough Pain May 1:00am June 02, 2018 11:30amsalmon calcitonin 200 unt/actuat nasal spray (4 sources)CalcitoninStart: 05-26-2018 End: 63-31-1077Atsfj: 05-26-2018 End: 47-50-2429Eagxkcugkt ([place]) Active 1 SPRAYS NASAL Daily 2.7 June 02, 2018 12:00amVitamin D2 2000 intl units oral capsule (2 sources)Start: 00-70-2392jrqq 1 capsule by mouth once dailyVitamin D2 2000 intl units oral capsule 50 mcg = 1 cap(s), Oral, Daily, Refills(s) 0 Start Date: 07/19/23 Status: Ordered Completed/Discontinued Medications MedicationDrug Class(es)DatesSig (Normalized)Sig (Original)acetaminophen 325 mg oral tablet (2 sources)Start: 05-26-2018 End: 27-09-6767rdyb 1-5 tablets by mouth every six hours as needed for pain Acetaminophen 325 mg Tablet Discontinued 650 MG PO Q6H as needed for Pain 1-5 or fever May 26, 2018 1:00am June 02, 2018 11:27amStart: 05-26-2018 End: 04-73-9555botm 650 mg by mouth every six hoursAcetaminophen Discontinued 650 MG PO Q6H May 26, 2018 1:00am June 02, 2018 11:27amamLODIPine 2.5 mg oral tablet (2 sources)Dihydropyridine Calcium Channel BlockerStart: 06-02-2018 End: 54-35-6900nvci 1 tablet by mouth once dailyAmlodipine 2.5 mg Tablet Discontinued 2.5 MG PO Daily 30 June 02, 2018 12:00am July 01, 2018 12:00am July 02, 2018 12:16amdiclofenac sodium 0.01 mg/mg topical gel (2 sources)Nonsteroidal Anti-inflammatory DrugStart: 05-26-2018 End: 47-76-2327fqfvn 2 g topically twice dailyDiclofenac Sodium (Voltaren) 1 % Gel Discontinued 2 GM TOPICAL Twice daily 120 May 26, 2018 1:00am June 02, 2018 11:29am Apply to left wrist30 actuat fluticasone furoate 0.1 mg/actuat / vilanterol 0.025 mg/actuat dry powder inhaler (2 sources)Corticosteroid, beta2-Adrenergic AgonistStart: 05-21-2018 End: 80-69-2967xaii 1 puff(s) by inhalation once dailyFluticasone Furoate- Vilanterol 100-25 mcg/dose blister with device Discontinued 1 PUFF INHALATION Da jamal May 21, 2018 1:00am June 02, 2018 11:30amheparin sodium, porcine 5000 unt/ml injectable solution (2 sources)Unfractionated Heparin, Anti-coagulantStart: 05-26-2018 End: 36-47-4916swnptj 5000 [IU] by subcutaneous injection every twelve hours Heparin (Porcine) 5,000 unit/mL Solution Discontinued 5000 UNIT SUBCUT Every 12 hours May 26, 2018 1:00am June 02, 2018 11:27amibuprofen 800 mg oral tablet (2 sources)Nonsteroidal Anti-inflammatory DrugStart: 05-26-2018 End: 06-24-0587duwk 1 tablet by mouth three times dailyIbuprofen 800 mg Tablet Discontinued 800 MG PO Three times daily 0 May 26, 2018 1:00am June 02, 2018 11:30amomeprazole 20 mg delayed release oral capsule (2 sources)Proton Pump InhibitorStart: 06-02-2018 End: 92-07-8579juzg 1 capsule by mouth once dailyOmeprazole 20 mg Capsule,Delayed Release(Dr/Ec) Discontinued 20 MG PO Daily June 02, 2018 12:00am July 01, 2018 12:00am July 02, 2018 12:16am2 ml ondansetron 2 mg/ml injection (2 sources)Serotonin-3 Receptor AntagonistStart: 05-26-2018 End: 75-21-8387ugbr 4 mg intravenously every six hours as needed for nausea and vomitingOndansetron Hcl (Pf) 4 mg/2 mL Solution Discontinued 4 MG IV-PUSH Q6H as needed for Nausea And Vomiting May 26, 2018 1:00am June 02, 2018 11:30am vitamin b12 0.5 mg oral tablet (2 sources)Vitamin H76Nyqrh: 05-26-2018 End: 16-28-4831hncy 1 tablet by mouth once dailyCyanocobalamin (Vitamin B-12) (Vitamin B-12) 500 mcg Tablet Discontinued 500 MCG PO Daily May 26, 2018 1:00am June 02, 2018 11:27amzolpidem tartrate 5 mg oral tablet (2 sources)gamma-Aminobutyric Acid-ergic AgonistStart: 06-02-2018 End: 67-70-4575lwoq 1 tablet by mouth once daily at bedtime as needed for sleep Zolpidem 5 mg Tablet Discontinued 5 MG PO Daily at bedtime as needed for Sleep 01 01June 02, 2018 12:00am June 11, 2018 12:00am June 12, 2018 12:02am Problems Active Problems Problem ClassificationProblemDateDocumented DateEpisodic/Chronic Administrative/social admission (2 sources)Other reduced mobility; Translations: [Impaired mobility and activities of daily living]96-08-5521OmmkfgdtKargcsi on above:Problem List clean-up per request of Phys. EHR CmteAllergic reactions (1 source)Allergic bronchopulmonary aspergillosis; Translations: [ALLERG BRONCHOPULMNRY ASPERGILLOSIS]Onset: 00-56-2672OvlbbfcBxxxcwuu reactions (2 sources)Pugeds89-44-9923UzvzlvjfMzuzdl (2 sources)Uczgvq53-50-4407TlwwhwkDywvafw obstructive pulmonary disease and bronchiectasis (3 sources)Bronchiectasis, uncomplicated; Translations: [Chronic obstructive lung disease]Onset: 262079-45-2602IxkrxdnGzosnxxcg of lipid metabolism (1 source)Hyperlipidemia, unspecified; Translations: [HYPERLIPIDEMIA UNSPECIFIED]Onset: 11-05-8282ZgcbsotMcbtabjesx disorders (2 sources)Gastroesophageal reflux dvbkjky38-21-0742TjruyzbDlxmxgofj hypertension (2 sources)Hypertensive -66-0191ZthqhnvOwil and other crystal arthropathies (4 sources)Gout; Translations: [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 EHR Cmte Neoplasms of unspecified nature or uncertain behavior (3 sources)Neoplasm of uncertain behavior of skin; Translations: [Neoplasm of uncertain behavior of skin]Onset: 73-32-2658PhwxautqKykflwpyffe chest pain (2 sources)Pain of sternum; Translations: [Other chest pain]59-72-3351Yueandlu Comment on above:Problem List clean-up per request of Phys. EHR CmteNutritional deficiencies (5 sources)Vitamin D deficiency, unspecified; Translations: [Vitamin D deficiency]Onset: 719859-57-5857WhpssvvEdpuhsq on above:Problem List clean-up per request of Phys. EHR CmteNutritional deficiencies (4 sources)Vitamin B12 deficiency (non anemic); Translations: [Cobalamin deficiency]85-21-8316DqsausyyZthcqlx on above:Problem List clean-up per request of Phys. EHR CmteOsteoporosis (2 sources)Dlpchbgipggt81-87-2154ZrqajxwJaqkh connective tissue disease (2 sources)Musculoskeletal pain; Translations: [Myalgia, other site]03-06-2023 EpisodicComment on above:Problem List clean-up per request of Phys. EHR Cmte Other ear and sense organ disorders (1 source)Perichondritis; Translations: [Unspecified perichondritis of external ear, unspecified ear]Onset: 68-57-2190TyugocncOpcsq ear and sense organ disorders (1 source)Chondrodermatitis nodularis ddfrioo02-55-2487UmrknmrfJjvrw fractures (2 sources)Fracture of thoracic spine; Translations: [Closed fracture of thoracic spine at T1-T3 level]19-39-7399MkiryhsyIdujlhi on above:Problem List clean-up per request of Phys. EHR CmteOther fractures (2 sources)Fracture of sternum; Translations: [Unspecified fracture of sternum, initial encounter for closed fracture]96-88-9955SweykoxyLmgawbr on above:Problem List clean-up per request of Phys. EHR CmteOther injuries and conditions due to external causes (2 sources)History of fall; Translations: [History of falling]59-69-8586Xkxbwoyo Comment on above:Problem List clean-up per request of Phys. EHR CmteOther lower respiratory disease (2 sources)History of chronic obstructive airway disease; Translations: [Personal history of other diseases ofthe respiratory system]19-22-0562Pkpvbvnh Comment on above:Problem List clean-up per request of Phys. EHR CmteOther non- traumatic joint disorders (3 sources)Pain in wrist; Translations: [Pain in unspecified wrist]03-06-2023 EpisodicComment on above:Problem List clean-up per request of Phys. EHR Cmte Other non-traumatic joint disorders (1 source)Pain of left wrist; Translations: [Pain in left wrist]03-06-2023 EpisodicComment on above:Problem List clean-up per request of Phys. EHR Cmte Other screening for suspected conditions (not mental disorders or infectious disease) (9 sources)Encounter for screening mammogram for malignant neoplasm of breast; Translations: [Encounter for screening for malignant neoplasm of rectum]Onset: 21-69-7137VhtpkpqpSrrkkrhr codes; unclassified (1 source)Family history of malignant neoplasm of breast; Translations: [FAMILY HX MALIG NEOPLASM OF BREAST]Onset: 25-58-0431LmammlqyRvitrsvp codes; unclassified (1 source)Family history of malignant neoplasm of other organs or systems; Translations: [FAM HX MALIG NEOPLASM OTH ORGN/SYS]Onset: 62-89-4272Iksvlbue Residual codes; unclassified (4 sources)Insomnia; Translations: [Insomnia, unspecified]36-57-4825Fifhkoxy Comment on above:Problem List clean-up per request of Phys. EHR CmteResidual codes; unclassified (2 sources)Patient encounter status; Translations: [Encounter for prophylactic measures, unspecified]63-64-8125AfgxozuqFfvlicn on above:Problem List clean-up per request of Phys. EHR Cmte Past or Other Problems Problem ClassificationProblemDateDocumented DateEpisodic/ChronicDeficiency and other anemia (1 source)Anemia, unspecified; Translations: [ANEMIA UNSPECIFIED]Onset: 93-04-3802SnogmoinUxucezze mellitus without complication (1 source)Other abnormal glucose; Translations: [OTHER ABNORMAL GLUCOSE]Onset: 59-06-9610WwibocgvJabhi infections; including parasitic (1 source)Unspecified infectious disease; Translations: [UNSPECIFIED INFECTIOUS DISEASE]Onset: 66-26-6359OrxdlkcnTfiaguez codes; unclassified (1 source)Insomnia, unspecified; Translations: [INSOMNIA UNSPECIFIED]Onset: 39-20-9441PlmwrsrkFvhs and subcutaneous tissue infections (4 sources)Cellulitis, unspecified; Translations: [CELLULITIS UNSPECIFIED]Onset: 00-72-2749MyfcqcvyQnzcsxtigjo injury; contusion (4 sources)Contusion of right knee, initial encounter; Translations: [CONTUSION RIGHT KNEE INITIAL ENC]Onset: 48-95-8440Yplgihgv Results Test NameValueInterpretationReference RangeFacilityDocumentationon 01-04-2025 [id number] Ilana Moore 1950 F Date Provider Department Center 01/04/2025 [id number]-XMMASYKELLI [facility] HeartVAS No family history on fileNormalUniversity of Houston Methodist Baytown HospitalUrine Culture on 87-54-0263Twppmpka identified Cx Nom (U)No Growth 2 Days PERFORMED BY: [facility] [address] [id number] PATHOLOGIST CORPORATE TRAVEL CONSULTANT CAYLA BECK M.D.[facility] Physician GroupComment on above: Performed By: #### CUU #### [facility] [address] [id number] USAAmbulatory Visit Summaryon 15-80-0438Wvoufwuyir Visit SummaryAmbulatory Visit Summary ILANA MOORE :1950 Visit Date:09/24/2023 Ambulatory Visit Instructions Your Care Team Attending Physician - MELL MONGE, Galileo Jarrett Primary Care Physician - Renzo MONGE, Velma This Is Your Medications List albuterol (albuterol [...] you for choosing us for your care. [facility] Office/Clinic Noteon 79-07-3509Ztiytsu Surgery Office/Clinic NoteGeneral Surgery Office/Clinic Note Chief Complaint post operative follow up HPI Staff 6 day post operative follow up post excisional biopsy right ear lesion. Denies discomfort, bleedingor drainage. Sutures intact. History of Present Illness [...] swallowing difficulties, no hearing loss, no ear infection(s),no nose bleeds. Cardiovascular: normal blood pressure, no [...] Immunizations Vaccine Date Status Comments SARS-CoV-2 (COVID-19) mRNAMUL.ORD![id number] 12/07/2021 Recorded SARSCoV2 mRNA(radqzmchd-annn-dldlpf) vac 07/14/2021 Recorded SARS-CoV-2 (COVID-19) mRNA BNT-162b2 vax 12/27/2020 Recorded SARS-CoV-2 (COVID-19) mRNA BNT-162b2 vax 05/18/2020 Recorded 2023-07-19: TPV70 SARS-CoV-2 (COVID-19) mRNA BNT-162b2 vax 04/27/2020 Recorded 2023-07-19: TPV70 [facility] SystemComment on above:Result Comment: Electronically Signed By: MELL MONGE, Galileo Jarrett\.br\Date and Time Signed: 09/24/23 14:47 EDT Consent for Procedure/Surgeryon 82-96-6899Penxswa for Procedure/Surgery [id number]#1.00[facility] HospitalFacesheeton 69-14-4301Abkhgyxuy [id number]#1.00[facility] HospitalAmbulatory Visit Summaryon 61-87-0018Vpsjxavwyx Visit Summary ILANA MOORE :1950 Visit Date:07/31/2023 Ambulatory Visit Instructions Your Care Team Attending Physician - MELL MONGE, Galileo Jarrett Primary Care Physician - Renzo MONGE, Velma Referring Physician - Velma Muller MD This [...] you for choosing us for your care. [facility] SystemMG MAMM SCREEN 3D ALLEN CADon 80-92-5056AN MAMM SCREEN 3D ALLEN CADPatient: ILANA MOORE Exam Date: 05/14/2022 : 1950 Gender:F Ordering : DR VELMA MULLER . Admission #: [id number] Family : Order #: [id number] CLICK HERE TO VIEW EXAM RADIOLOGY REPORT [...] liver cancer at age 66. LOCATION: [facility] BREAST COMPOSITION: Scattered areas fibroglandular [...] by: Paul Prieto M.D. on 05/16/2022 at 13:19NormalThCleveland Clinic Mentor HospitalINSULINon 29-80-0219Kkvrofj5.6 uIU/mLNormal2.6-24.9[facility] Comment on above:Performed By: #### CBC #### [facility] [address] [address] [address] Lupe Gerardo AUTO DIFFon 03-72-2566CYGH #0.1 103/ulNormal0.0-0.1[facility] HospitalComment on above:Performed By: #### CBC #### [facility] [address] [address] [address] Lupe EvangelistaBasophils/100 WBC (Bld)0.7 %Normal0.2-2.0[facility] Comment on above:Performed By: #### CBC #### [facility] [address] [address] [address] Lupe Stiles #0.4 103/ulNormal0.0-0.7The [facility] CenterComment on above: Performed By: #### CBC #### [facility] [address] [address] [address] Lupe Baezosinophils/100 WBC (Bld)5.4 %Normal0.9-7.0[facility] Comment on above:Performed By: #### CBC #### [facility] [address] [place] [address] Dr. Lupe Baezrythrocyte distribution width (RBC) [Ratio]15.9 %Critically high 11.0-15.0The [facility] CenterComment on above:Performed By: #### CBC #### [facility] [address] [place] [address] Dr. Lupe EvangelistaHematocrit (Bld) [Volume fraction]39.8 %Movzsz11.0-48.0The [facility] CenterComment on above:Performed By: #### CBC #### [facility] [address] [place] [address] Dr. Lupe EvangelistaHemoglobin (Bld) [Mass/Vol]11.6 g/dLCritically low12.0-16.0The [facility] CenterComment on above:Performed By: #### CBC #### [facility] [address] [place] [address] Dr. Lupe De La Garza #0.02 10e3/ulNormal0.00-0.03The [facility] CenterComment on above:Performed By: #### CBC #### [facility] [address] [place] [address] Dr. Lupe De La Garza %0.2 %Normal0.0-0.5The [facility] CenterComment on above: Performed By: #### CBC #### [facility] [address] [place] [address] Dr. Lupe LucasH #2.9 103/ulNormal1.2-3.8The [facility] CenterComment on above:Performed By: #### CBC #### [facility] [address] [place] [address] Dr. Lupe Wangmphocytes/100 WBC (Bld)35.2 %Glanrn65.5-60.0The [facility] CenterComment on above:Performed By: #### CBC #### [facility] [address] [place] [address] Dr. Lupe Weinstein DIFF REQNONormalThe [facility] Medical CenterComment on above: Performed By: #### CBC #### [facility] [address] [place] [address] Dr. Lupe Paulino (RBC) [Entitic mass]23.4 pgCritically low26.7-34.0The [facility] CenterComment on above:Performed By: #### CBC #### [facility] [address] [place] [address] Dr. Lupe Paulino (RBC) [Mass/Vol]29.1 g/dLCritically low29.9-35.2The [facility] CenterComment on above:Performed By: #### CBC #### [facility] [address] [place] [address] Dr. Lupe Hernandez (RBC) [Entitic vol]80.4 fLCritically low81.0-99.0The [facility] CenterComment on above:Performed By: #### CBC #### [facility] [address] [place] [address] Dr. Lupe Rutherford #0.8 103/ulNormal0.3-0.8The [facility] CenterComment on above:Performed By: #### CBC #### [facility] [address] [place] [address] Dr. Lupe Granadosocytes/100 WBC (Bld)9.8 %Normal1.7-12.0[facility] Comment on above:Performed By: #### CBC #### [facility] [address] [place] [address] Dr. Lupe Castro #4.0 103/ulNormal1.4-6.5The [facility] CenterComment on above:Performed By: #### CBC #### [facility] [address] [place] [address] Dr. Lupe Stewartutrophils/100 WBC (Bld)48.7 %Qtyxsn39.0-75.0The [facility] CenterComment on above:Performed By: #### CBC #### [facility] [address] [place] [address] Dr. Lupe Velascolet mean volume (Bld) [Entitic vol]11.0 fLNormal9.5-13.5The [facility] CenterComment on above:Performed By: #### CBC #### [facility] [address] [place] [address] Dr. Lupe EvangelistaPLT341 103/awHdqblj042-352Nqg [facility] CenterComment on above: Performed By: #### CBC #### [facility] [address] [place] [address] Dr. Lupe EvangelistaRBC4.95 106/ulNormal4.20-5.40The [facility] CenterComment on above:Performed By: #### CBC #### [facility] [address] [place] [address] Dr. Lupe EvangelistaWBC8.2 103/ulNormal4.0-11.0The [facility] CenterComment on above: Performed By: #### CBC #### [facility] [address] [place] [address] Dr. Lupe EvangelistaFRKATRINA THYROXINE INDEX T7on 83-10-8090UAA3.32Rqmona2.30-4.50The [facility] CenterComment on above:Performed By: #### CBC #### [facility] [address] [place] [address] Dr. Lupe EvangelistaT3U31.0 %Daisfn57.0-39.0The [facility] CenterComment on above: Performed By: #### CBC #### [facility] [address] [place] [address] Dr. Lupe EvangelistaT4 [Mass/Vol]6.40 ug/dLNormal4.80-13.90[facility] Comment on above:Performed By: #### CBC #### [facility] [address] [place] [address] Dr. Lupe EvangelistaGLYCOHEMOGLOBIN A1Con [id number] RECOMMENDATIONSEE BELOWNormal The [facility] Campus Medical CenterComment on above:Result Comment: ADA RECOMMENDED LIMIT 4.0 - 6.0 ADA THERAPEUTIC TARGET < 7.0 ACTION SUGGESTED > 7.0Performed By: #### CBC #### [facility] [address] [place] [address] Dr. Lupe EvangelistaGlucose [Mass/Vol]128 mg/dLSouthwest General Health Center on above:Performed By: #### CBC #### [facility] [address] [address] [address] Lupe EvangelistaHbA1c (Bld) [Mass fraction]6.1 %Normal4.5-6.2The [facility] on above:Performed By: #### CBC #### [facility] [address] [place] [address] Dr. Lupe Angel 06-29-5860Sqsb [Mass/Vol]44.0 ug/dLCritically low 50.0-170.0The [facility] on above:Performed By: #### IRON, VITAD #### [facility] [address] [place] [address] Dr. Lupe EvangelistaLIPID PROFILEon [id number]-HDL RATIO NORMSMercy Health Defiance [facility] on above:Result Comment: 3.3 - 4.4 LOW RISK 4.4 - 7.1 AVERAGE RISK 7.1 - 11.0 MODERATE RISK >11.0 HIGH RISKPerformed By: #### CBC #### [facility] [address] [place] [address] Dr. Lupe EvangelistaCholesterol [Mass/Vol]217 mg/dLCritically high<=200The [facility] on above:Performed By: #### CBC #### [facility] [address] [place] [address] Dr. Lupe EvangelistaCholesterol in HDL [Mass/Vol]60 mg/rPJycmiu50-68Xim [facility] on above:Performed By: #### CBC #### [facility] [address] [place] [address] Dr. Lupe EvangelistaCholesterol in LDL [Mass/Vol]136.0 mg/dLSouthwest General Health Center on above:Performed By: #### CBC #### [facility] [address] [address] [address] Lupe EvangelistaCholesterol.total/Cholesterol in HDL [Mass ratio]3.6 {ratio} NormalThe [facility] Campus Medical CenterComment on above:Performed By: #### CBC #### [facility] [address] [address] [address] Lupe Stoddard NORMAL> or = 60 mg/dl - LOW CARDIOVASCULAR RISK <40 mg/dl - HIGH CARDIOVASCULAR RISKEast Liverpool City HospitalComment on above:Performed By: #### CBC #### [facility] [address] [address] [address] Lupe EvangelistaLDL CALC NORMALSEE BELOWEast Liverpool City HospitalComment on above:Result Comment: <100 mg/dl OPTIMAL 100 - 129 mg/dl NEAR OR ABOVE OPTIMAL 130 - 159 mg/dl BORDERLINE HIGH 160 - 189 mg/dl HIGH >190 mg/dl VERY HIGH Performed By: #### CBC #### [facility] [address] [place] [address] Dr. Lupe EvangelistaTriglyceride [Mass/Vol]105 mg/dLNormal<=150The [facility] Comment on above:Performed By: #### CBC #### [facility] [address] [place] [address] Dr. Lupe FigueredoLDL CALC21.0 mg/dLNoFort Hamilton HospitalComment on above: Performed By: #### CBC #### [facility] [address] [place] [address] Dr. Lupe EvangelistaPROF 14(COMP METB)on [id number] [Mass/Vol]3.7 g/dLNormal 3.4-5.0The [facility] CenterComment on above:Performed By: #### CMP, LIPID, TSH, T7 #### [facility] [address] [place] [address] Dr. Lupe EvangelistaAlbumin/Globulin [Mass ratio]1.0 {ratio}NormalThe [facility] Campus Medical CenterComment on above:Performed By: #### CMP, LIPID, TSH, T7 #### [facility] [address] [place] [address] Dr. Lupe Hooker [Catalytic activity/Vol]86 U/ZOpnemo24-269She [facility] CenterComment on above:Performed By: #### CMP, LIPID, TSH, T7 #### [facility] [address] [address] [address] Lupe Fisher [Catalytic activity/Vol]16 U/IGzufoa22-42Fcl [facility] CenterComment on above:Performed By: #### CMP, LIPID, TSH, T7 #### [facility] [address] [address] [address] Lupe Linn gap [Moles/Vol]7.0 mmol/LNormalThe [facility] Medical CenterComment on above:Performed By: #### CMP, LIPID, TSH, T7 #### [facility] [address] [place] [address] Dr. Lupe EvangelistaAST [Catalytic activity/Vol]14 U/LCritically lqm18-08Ril [facility] CenterComment on above:Performed By: #### CMP, LIPID, TSH, T7 #### [facility] [address] [place] [address] Dr. Lupe EvangelistaBilirubin [Mass/Vol]0.4 mg/dLNormal0.2-1.0The [facility] Comment on above:Performed By: #### CMP, LIPID, TSH, T7 #### [facility] [address] [place] [address] Dr. Lupe EvangelistaCalcium [Mass/Vol]8.9 mg/dLNormal8.5-10.1The [facility] Comment on above:Performed By: #### CMP, LIPID, TSH, T7 #### [facility] [address] [place] [address] Dr. Lupe EvangelistaChloride [Moles/Vol]102 mmol/CRcgdjm29-047Eod [facility] Comment on above:Performed By: #### CMP, LIPID, TSH, T7 #### [facility] [address] [address] [address] Lupe EvangelistaCO2 [Moles/Vol]34.3 mmol/LCritically high21.0-32.0The Heather HospitalComment on above:Performed By: #### CMP, LIPID, TSH, T7 #### [facility] [address] [address] [address] Lupe EvangelistaCreatinine [Mass/Vol]0.73 mg/dLNormal0.55-1.02The [facility] CenterComment on above:Performed By: #### CMP, LIPID, TSH, T7 #### [facility] [address] [place] [address] Dr. Lupe BaezGFR-AF CAYMAN ISLANDER>60Normal>=60The [facility] Centerment on above:Performed By: #### CMP, LIPID, TSH, T7 #### [facility] [address] [place] [address] Dr. Lupe Burton-NON AF CAYMAN ISLANDER>60Normal>=60The [facility] CenterComment on above:Performed By: #### CMP, LIPID, TSH, T7 #### [facility] [address] [place] [address] Dr. Lupe EvangelistaGlobulin (S) [Mass/Vol]3.8 g/dLNormalThe [facility] CenterComment on above:Performed By: #### CMP, LIPID, TSH, T7 #### [facility] [address] [place] [address] Dr. Lupe EvangelistaGlucose [Mass/Vol]111 mg/dLCritically hgga69-342Fdy [facility] on above:Performed By: #### CMP, LIPID, TSH, T7 #### [facility] [address] [place] [address] Dr. Lupe EvangelistaPotassium [Moles/Vol]4.3 mmol/LNormal3.5-5.1The [facility] Comment on above:Performed By: #### CMP, LIPID, TSH, T7 #### [facility] [address] [place] [address] Dr. Lupe EvangelistaProtein [Mass/Vol]7.5 g/dLNormal6.4-8.2[facility] Comment on above:Performed By: #### CMP, LIPID, TSH, T7 #### [facility] [address] [address] [address] Lupe EvangelistaSodium [Moles/Vol]139 mmol/GAatqaf067-881Nmu [facility] Comment on above:Performed By: #### CMP, LIPID, TSH, T7 #### [facility] [address] [place] [address] Dr. Lupe Rocha nitrogen [Mass/Vol]11.0 mg/dLNormal7.0-18.0The [facility] CenterComment on above:Performed By: #### CMP, LIPID, TSH, T7 #### [facility] [address] [place] [address] Dr. Lupe Rocha nitrogen/Creatinine [Mass ratio]15.1 mg/mgNoFort Hamilton HospitalComment on above:Performed By: #### CMP, LIPID, TSH, T7 #### [facility] [address] [place] [address] Dr. Lupe SterlingHoreggie 59-75-3436XAH8.224 uIU/mLNormal0.358-3.740The [facility] CenterComment on above:Performed By: #### CBC #### [facility] [address] [place] [address] Dr. Lupe EvangelistaVITAMIN D 25 OHon [id number] D 25-OH17.8 ng/mLNormalThe [facility] Medical CenterComment on above:Performed By: #### IRON, VITAD #### [facility] [address] [place] [address] Dr. Lupe Moise D RANGESSEE BELOWEast Liverpool City HospitalComment on above: Result Comment: <20 ng/mL Vit D deficient 20 - <30 ng/mL Vit D insufficient 30 - 100 ng/mL Vit D sufficient >100 ng/mL Potential ToxicityPerformed By: #### IRON, VITAD #### [facility] [address] [place] [address] Dr. Lupe EvangelistaXR CHEST 2 Von 04-03-3301KG CHEST 2 VEXAM: XR CHEST 2 V HISTORY: Allergic bronchopulmonary [...] Electronically authenticated by: ARIANNE BRAGA Date: 2022-02-07 17:56NoGrand Lake Joint [facility] AUTO DIFFon [id number] #0.1 103/ulNormal0.0-0.1[facility]uther[facility] HospitalComment on above:Performed By: #### CBC #### [facility] [address] [place] [address] Dr. Lupe EvangelistaBasophils/100 WBC (Bld)0.8 %Normal0.2-2.0[facility] Comment on above:Performed By: #### CBC #### [facility] [address] [place] [address] Dr. Lupe Stiles #0.4 103/ulNormal0.0-0.7The [facility] CenterComment on above: Performed By: #### CBC #### [facility] [address] [place] [address] Dr. Lupe Baezosinophils/100 WBC (Bld)5.4 %Normal0.9-7.0[facility] Comment on above:Performed By: #### CBC #### [facility] [address] [place] [address] Dr. Lupe Baezrythrocyte distribution width (RBC) [Ratio]16.3 %Critically high 11.0-15.0[facility] HospitalComment on above:Performed By: #### CBC #### [facility] [address] [place] [address] Dr. Lupe EvangelistaHematocrit (Bld) [Volume fraction]36.0 %Afnzeo39.0-48.0The [facility] CenterComment on above:Performed By: #### CBC #### [facility] [address] [place] [address] Dr. Lupe EvangelistaHemoglobin (Bld) [Mass/Vol]10.4 g/dLCritically low12.0-16.0The [facility] CenterComment on above:Performed By: #### CBC #### [facility] [address] [place] [address] Dr. Lupe De La Garza #0.04 10e3/ulCritically high0.00-0.03The [facility] Comment on above:Performed By: #### CBC #### [facility] [address] [place] [address] Dr. Lupe De La Garza %0.6 %Critically high0.0-0.5The [facility] CenterComment on above:Performed By: #### CBC #### [facility] [address] [place] [address] Dr. Lupe Naik #1.9 103/ulNormal1.2-3.8The [facility] CenterComment on above:Performed By: #### CBC #### [facility] [address] [place] [address] Dr. Lupe Lucashocytes/100 WBC (Bld)29.1 %Sgucux59.5-60.0The [facility] CenterComment on above:Performed By: #### CBC #### [facility] [address] [place] [address] Dr. Lupe CrowleyUAL DIFF REQNONormalThe [facility] Medical CenterComment on above: Performed By: #### CBC #### [facility] [address] [place] [address] Dr. Lupe Cordova (RBC) [Entitic mass]24.9 pgCritically low26.7-34.0The [facility] CenterComment on above:Performed By: #### CBC #### [facility] [address] [place] [address] Dr. Lupe PaulinoHC (RBC) [Mass/Vol]28.9 g/dLCritically low29.9-35.2The [facility] CenterComment on above:Performed By: #### CBC #### [facility] [address] [place] [address] Dr. Lupe PaulinoV (RBC) [Entitic vol]86.1 qSVeiqpq48.0-99.0The [facility] CenterComment on above:Performed By: #### CBC #### [facility] [address] [place] [address] Dr. Lupe Rutherford #0.7 103/ulNormal0.3-0.8The [facility] CenterComment on above:Performed By: #### CBC #### [facility] [address] [place] [address] Dr. Lupe Granadosocytes/100 WBC (Bld)10.7 %Normal1.7-12.0The [facility] Comment on above:Performed By: #### CBC #### [facility] [address] [place] [address] Dr. Lupe Castro #3.4 103/ulNormal1.4-6.5The [facility] CenterComment on above:Performed By: #### CBC #### [facility] [address] [place] [address] Dr. Lupe Stewartutrophils/100 WBC (Bld)53.4 %Thyggj03.0-75.0The [facility] CenterComment on above:Performed By: #### CBC #### [facility] [address] [place] [address] Dr. Lupe Velascolet mean volume (Bld) [Entitic vol]10.6 fLNormal9.5-13.5The [facility] CenterComment on above:Performed By: #### CBC #### [facility] [address] [place] [address] Dr. Lupe StormT320 103/ztXsambe715-397Aai [facility] CenterComment on above: Performed By: #### CBC #### [facility] [address] [place] [address] Dr. Lupe EscobarC4.18 106/ulCritically low4.20-5.40The [facility] CenterComment on above:Performed By: #### CBC #### [facility] [address] [place] [address] Dr. Lupe EvangelistaWBC6.4 103/ulNormal4.0-11.0The [facility] CenterComment on above: Performed By: #### CBC #### [facility] [address] [place] [address] Dr. Lupe King 14-77-6200YPC4.6 mg/dLCritically high<=1.0The [facility] CenterComment on above:Performed By: #### CRP #### [facility] [address] [place] [address] Dr. Lupe Gerardo AUTO DIFFon [id number] #0.1 103/ulNormal0.0-0.1The [facility] CenterComment on above:Performed By: #### CBC #### [facility] [address] [place] [address] Dr. Lupe Yousophils/100 WBC (Bld)0.6 %Normal0.2-2.0The [facility] Comment on above:Performed By: #### CBC #### [facility] [address] [place] [address] Dr. Lupe Stiles #0.4 103/ulNormal0.0-0.7The [facility] CenterComment on above: Performed By: #### CBC #### [facility] [address] [place] [address] Dr. Lupe Baezosinophils/100 WBC (Bld)5.4 %Normal0.9-7.0The [facility] Comment on above:Performed By: #### CBC #### [facility] [address] [place] [address] Dr. Lupe Beazrythrocyte distribution width (RBC) [Ratio]16.5 %Critically high 11.0-15.0The [facility] CenterComment on above:Performed By: #### CBC #### [facility] [address] [address] [address] Lupe EvangelistaHematocrit (Bld) [Volume fraction]36.1 %Pdrabw01.0-48.0The [facility] CenterComment on above:Performed By: #### CBC #### [facility] [address] [place] [address] Dr. Lupe EvangelistaHemoglobin (Bld) [Mass/Vol]10.6 g/dLCritically low12.0-16.0The [facility] HospitalComment on above:Performed By: #### CBC #### [facility] [address] [place] [address] Dr. Lupe De La Garza #0.03 10e3/ulNormal0.00-0.03The [facility] CenterComment on above:Performed By: #### CBC #### [facility] [address] [place] [address] Dr. Lupe De La Garza %0.4 %Normal0.0-0.5The [facility] CenterComment on above: Performed By: #### CBC #### [facility] [address] [place] [address] Dr. Lupe Naik #2.3 103/ulNormal1.2-3.8The [facility] CenterComment on above:Performed By: #### CBC #### [facility] [address] [place] [address] Dr. Lupe Wangmphocytes/100 WBC (Bld)29.9 %Psffob78.5-60.0The [facility] CenterComment on above:Performed By: #### CBC #### [facility] [address] [place] [address] Dr. Lupe CrowleyUAL DIFF REQNONormalThe [facility] CenterComment on above: Performed By: #### CBC #### [facility] [address] [place] [address] Dr. Lupe Cordova (RBC) [Entitic mass]25.4 pgCritically low26.7-34.0The [facility] CenterComment on above:Performed By: #### CBC #### [facility] [address] [address] [address] Lupe PaulinoHC (RBC) [Mass/Vol]29.4 g/dLCritically low29.9-35.2The [facility] CenterComment on above:Performed By: #### CBC #### [facility] [address] [address] [address] Lupe PaulinoV (RBC) [Entitic vol]86.4 lIAzssmr44.0-99.0The [facility] CenterComment on above:Performed By: #### CBC #### [facility] [address] [place] [address] Dr. Lupe Rutherford #0.9 103/ulCritically high0.3-0.8The [facility] Comment on above:Performed By: #### CBC #### [facility] [address] [place] [address] Dr. Lupe Granadosocytes/100 WBC (Bld)10.9 %Normal1.7-12.0The [facility] Comment on above:Performed By: #### CBC #### [facility] [address] [address] [address] Lupe Castro #4.1 103/ulNormal1.4-6.5The [facility] CenterComment on above:Performed By: #### CBC #### [facility] [address] [address] [address] Lupe Stewartutrophils/100 WBC (Bld)52.8 %Nrfoqg47.0-75.0The [facility] CenterComment on above:Performed By: #### CBC #### [facility] [address] [address] [address] Lupe Velascolet mean volume (Bld) [Entitic vol]11.2 fLNormal9.5-13.5The [facility] CenterComment on above:Performed By: #### CBC #### [facility] [address] [address] [address] Lupe EvangelistaPLT351 103/aqXttlgb570-133Ibw Heather HospitalComment on above: Performed By: #### CBC #### [facility] [address] [place] [address] Dr. Lupe EvangelistaRBC4.18 106/ulCritically low4.20-5.40The [facility] CenterComment on above:Performed By: #### CBC #### [facility] [address] [place] [address] Dr. Lupe EvangelistaWBC7.8 103/ulNormal4.0-11.0The [facility] HospitalComment on above: Performed By: #### CBC #### [facility] [address] [place] [address] Dr. Lupe King 94-90-0626YXD4.7 mg/dLCritically high<=1.0The [facility] CenterComment on above:Performed By: #### CRP, CMP #### [facility] [address] [place] [address] Dr. Lupe Amos BLOODon 69-27-9087Rbyorogubzd examination of blood, cultureCulture Observations: NO GROWTH AT 5 DAYS.NormalThe [facility] CenterComment on above:Performed By: #### CBC #### [facility] [address] [place] [address] Dr. Lupe EvangelistaMicroscopic examination of blood, cultureCulture Observations: NO GROWTH AT 5 DAYS.NormalThe [facility] CenterComment on above:Performed By: #### CBC #### [facility] [address] [place] [address] Dr. Lupe EvangelistaPROF 14(COMP METB)on 76-81-7343Kzggqcu [Mass/Vol]3.5 g/dLNormal 3.4-5.0The [facility] CenterComment on above:Performed By: #### CRP, CMP #### [facility] [address] [place] [address] Dr. Lupe EvangelistaAlbumin/Globulin [Mass ratio]0.9 {ratio}NormalThe [facility] CenterComment on above:Performed By: #### CRP, CMP #### [facility] [address] [place] [address] Dr. Lupe Hooker [Catalytic activity/Vol]105 U/LPvaglg22-014Wao [facility] CenterComment on above:Performed By: #### CRP, CMP #### [facility] [address] [address] [address] Lupe GeorgeT [Catalytic activity/Vol]15 U/GDiweye11-54Nnq [facility] CenterComment on above:Performed By: #### CRP, CMP #### [facility] [address] [address] [address] Lupe Linn gap [Moles/Vol]7.3 mmol/LNormalThe [facility] CenterComment on above:Performed By: #### CRP, CMP #### [facility] [address] [place] [address] Dr. Lupe EvangelistaAST [Catalytic activity/Vol]21 U/KCnmstg25-34Yuw [facility] CenterComment on above:Performed By: #### CRP, CMP #### [facility] [address] [place] [address] Dr. Lupe EvangelistaBilirubin [Mass/Vol]0.4 mg/dLNormal0.2-1.0The [facility] Comment on above:Performed By: #### CRP, CMP #### [facility] [address] [place] [address] Dr. Lupe EvangelistaCalcium [Mass/Vol]8.5 mg/dLNormal8.5-10.1The [facility] Comment on above:Performed By: #### CRP, CMP #### [facility] [address] [place] [address] Dr. Lupe vEangelistaChloride [Moles/Vol]102 mmol/ZBlvgse62-578Kia [facility] Comment on above:Performed By: #### CRP, CMP #### [facility] [address] [place] [address] Dr. Lupe EvangelistaCO2 [Moles/Vol]31.9 mmol/TAlshin54.0-32.0The [facility] Comment on above:Performed By: #### CRP, CMP #### [facility] [address] [place] [address] Dr. Lupe EvangelistaCreatinine [Mass/Vol]0.76 mg/dLNormal0.55-1.02The [facility] CenterComment on above:Performed By: #### CRP, CMP #### [facility] [address] [address] [address] Lupe BaezGFR-AF CAYMAN ISLANDER>60Normal>=60The [facility] CenterComment on above:Performed By: #### CRP, CMP #### [facility] [address] [address] [address] Lupe BaezGFR-NON AF CAY[place] ISLANDER>60Normal>=60The [facility] CenterComment on above:Performed By: #### CRP, CMP #### [facility] [address] [address] [address] Lupe EvangelistaGlobulin (S) [Mass/Vol]3.9 g/dLNormalThe [facility] CenterComment on above:Performed By: #### CRP, CMP #### [facility] [address] [address] [address] Lupe EvangelistaGlucose [Mass/Vol]92 mg/rNWassaw82-703XeiLutheran Hospital Comment on above:Performed By: #### CRP, CMP #### [facility] [address] [place] [address] Dr. Lupe EvangelistaPotassium [Moles/Vol]4.2 mmol/LNormal3.5-5.1The [facility] Comment on above:Performed By: #### CRP, CMP #### [facility] [address] [place] [address] Dr. Lupe EvangelistaProtein [Mass/Vol]7.4 g/dLNormal6.4-8.2The [facility] Comment on above:Performed By: #### CRP, CMP #### [facility] [address] [address] [address] Lupe EvangelistaSodium [Moles/Vol]137 mmol/BLodmst573-010Iih [facility] Comment on above:Performed By: #### CRP, CMP #### [facility] [address] [place] [address] Dr. Lupe Rocha nitrogen [Mass/Vol]8.0 mg/dLNormal7.0-18.0The [facility] CenterComment on above:Performed By: #### CRP, CMP #### [facility] [address] [address] [address] Lupe Rocha nitrogen/Creatinine [Mass ratio]10.5 mg/mgNoFort Hamilton HospitalComment on above:Performed By: #### CRP, CMP #### [facility] [address] [address] [address] Lupe EvangelistaSED RATE WESTERGRENon 82-37-3520UHT RATE27 mm/hrNormal<=30The [facility] CenterComment on above:Performed By: #### SEDR #### [facility] [address] [address] [address] Lupe EvangelistaXR KNEE RT 4V or >on 64-07-8685ZC KNEE RT 4V or >EXAM: XR KNEE RT 4V or > HISTORY: [...] Electronically authenticated by: HUNTER LAWRENCE Date: 2021-11-15 21:55[facility] Vital Signs Date TimeVital SignValuePerforming HdsysvxyxJpmdlaor04-73-3849 14:30-0400Blood Pressure LocationMichaegeremias CAMACHOL [phone]-MnggqPar[facility]05-08-2024 14:30-0400Diastolic blood psuwdwfl49 mm[Hg]Galileo CLEARY [phone]-WopgxPar[facility]05-08-2024 14:30-0400Heart rate68 /minMichael NILL [phone]-BfgbbPar[facility]05-08-2024 14:30-0400Respiratory rate16 /minMichael NILL [phone]-SmuzoParma [facility] Hospital05-08-2024 14:30-0400Systolic blood uvvuwixt141 mm[Hg]Galileo NILL [phone]-WzmedParma Community General Hospital Encounters Encounter DateEncounter TypeCare ProviderFacilityStart: 01-03-2025 End: 32-13-1326jehpqwlnlqKfgcdmj D KatOur [facility] Work Phone: Start: 01-03-2025 End: 21-10-1991Trpjhuxk ReferredErick Mackenzie DO-LAB [facility] Start: 09-24-2023 End: 79-29-7846afkvmqbnutVffmffl R NILLFacility: BellueStart: 09-24-2023 End: 51-06-7944Mfndqks encounter procedureMichael R NILL [phone]-HnvfpCoshocton Regional Medical Centerue Start: 09-18-2023 End: 52-97-0715yylnnfvjlqKL Galileo Nill Work Phone: [facility] Work Phone: Start: 09-18-2023 End: 69-90-7232Dwmctfhj ReferredMD Galileo Nill Work Phone: [facility]-LAB [facility] HospStart: 09-18-2023 End: 00-98-9995fjaffkkfixIakoksy R NILLFacility:CD:[id number]: 07-31-2023 End: 58-18-6985byhorgvoyhUlndrcx R NILLFacility: BellevueStart: 07-31-2023 End: 77-58-2963Mjhwauz encounter procedureMichael R NILL [phone]-Gdhsb [facility] [place] Start: 64-83-1503iejsvixpsdTrxplzq NILLFacility: BellevueStart: 05-14-2022 End: 64-62-4203iowwqvjtosGS VELMA HOY .Facility:Y1Isshu: 02-07-2022 End: 07-50-9868jqetmjhtokMK VELMA HOY .Facility:H3Fuolh: 12-01-2021 End: 56-98-1529xxhipcdkbbUN VELMA HOY .Facility:J3Ntotu: 11-29-2021 End: 61-71-7152itsnmxgwpnMB VELMA HOY .Facility:I7Arepy: 11-15-2021 End: 85-98-0869ivzxxpvqqdBL VELMA HOY .Facility: Procedures DateProcedureProcedure DetailPerforming ClinicianStart: 25-75-4099Anbjtprd of lesion of skinMichael NILL Comment on above:right earAppendectomyMichael NILL CholecystectomyMichael NILL Esophageal hiatus hernia repairMichael NILL Extraction of cataractMichael NILL History of operative procedure on hipMichael NILL Lumpectomy of left breastMichael NILL Repair of joint of right hipMichael NILL Plan of Treatment DateCare ActivityDetailAuthorStart: 95-68-5777GyroaSt. Elizabeth Hospitaltart: 64-61-5969Wrvjvkur identified in Urine by CultureUrine [facility] Immunizations Immunization DateImmunizationNotesCare BevlovcbIrvbqtvi62-56-4009DESK-JdW-3 (COVID-19) mRNAMUL.ORD![id number] NILL [phone]-EhrijParma Community General Hospital04-22-2022 SARS-CoV-2 mRNA (pdrnjktphsv-xywh-xkbxluy) vaccineMichael NILL 197-1991Yccwzs-EvytmCoshocton Regional Medical Centerue10-05-2021 SARS-CoV-2 (COVID-19) mRNA BNT-162b2 vaxMichael NILL [phone]-UtevaCoshocton Regional Medical Centerue02-24-2021 SARS-CoV-2 (COVID-19) mRNA BNT-162b2 vaxMichael NILL [phone]-FimwfSalem Regional Medical Center BellevueComment on above: Result Comment: 2023-07-19: NNA2297-21-9511VWOX-LbM-1 (COVID-19) mRNA BNT-162b2 vaxMichael NILL [phone]-NmenoSalem Regional Medical Center BellevueComment on above: Result Comment: 2023-07-19: [id number] Payers DatePayer CategoryPayerPolicy [id number] [id number] 1961 [id number] 2..1.864427.[id number] 2..1.729878.3.57[id number] 2..1.137838.3.57[id number] 2.0.1.312014.3.57[id number] 2.0.1.421707.3.57[id number] 2.0.1.241220.3.57[id number] 2.0.1.208830.3.57[id number] 2..0.1.615453.3.5[id number] [id number] 2.0.1.796789.3.579.2.531Worker's CompensationIndustrial O [id number] Social History DateTypeDetailFacilityStart: 57-63-0911Hjipdlg smoking statusNever smoked tobacco (finding)[facility] BellevueTobacc smoking status NeverSalem Regional Medical Center BellevueSex Assigned At [facility] Hospitaltart: 06-57-2713Sbh Assigned At [facility] HospitalTobacco smoking status NHISUnknown if ever smoked [facility] Work Phone: SexFemale (finding)[facility] Functional Status WyhiLumvyjxyquTcdagzVixdgviv21-10-3321Pnrnklhseg StatusN/AFSt. Mary's Medical Centerevue Clinical Note 07-31-2023 Note Date & KzhnCfhrRucmzedz75-05-3922 NoteChief Complaint consultation for skin lesion HPI Staff [...] swallowing difficulties, no hearing loss, no ear infection(s),no nose bleeds. Cardiovascular: normal blood pressure, no [...] plan excisional biopsy under local anesthesia at [facility], for definitive diagnosis and treatment; informed [...] Immunizations Vaccine Date Status Comments SARS-CoV-2 (COVID-19) mRNAMUL.ORD![id number] 12/07/2021 Recorded SARSCoV2 mRNA(nywcyueyy-cesu-bkgkuo) vac 07/14/2021 Recorded SARS-CoV-2 (COVID-19) mRNA BNT-162b2 vax 12/27/2020 Recorded SARS-CoV-2 (COVID-19) mRNA BNT-162b2 vax 05/18/2020 Recorded 2023-07-19: [id number] SARS-CoV-2 (COVID-19) mRNA BNT-162b2 vax 04/27/2020 Recorded 2023-07-19: [id number] [facility]Comment [facility]:Result Comment: Electronically Signed By: MELL MONGE, Galileo Roberts\Date and Time Signed: 07/31/23 15:12 EDT Evaluation + Plan note Note Date & TypeNoteFacilityEvaluation + Plan note No data available for this section [facility] Evaluation note Note Date & TypeNoteFacilityEvaluation noteNo assessment information available [facility] Work Phone: Hospital Discharge instructions Note Date & TypeNoteFacilityHospital Discharge instructions No data available for this section [facility] Progress note Note Date & TypeNoteFacilityProgress note No data available for this section [facility] Reason for referral (narrative) Note Date & TypeNoteFacilityReason for referral (narrative)No reason for referral [facility] availableBer[facility] Work Phone: Summary Purpose Family History No Family History Records Found No data available for this section No data available for this section No Family History Records FoundNo Family History Records FoundNo Family History Records Found Advance Directives No Advanced Directives Records Found Advance Directive Response Recorded Date/ Time Advance Directives No July 10 018 6:52am Additional Source Comments INFORMATION SOURCE (unrecogn ized section and content) DATE CREATED AUTHOR 05/19/2022 [facility] DATE CREATED AUTHOR 'S ORGANIZ ATION 09/26/2023 [facility] DATE CREATED AUTHOR AUTHOR'S ORGANIZ ATION 01/08/2025 [facility] DATE CREATED AUTHOR AUTHOR'S ORGANIZ ATION 01/08/[address] [facility] Patient Care team informatio n (unrecognized section and content) Team Status: Inactive Member Role Status Dates Galileo Cleary MD FACS Attending Provider Active Start: September 18, 2023 End: September 18, 2023 Team Status: Inactive Member Role Status Dates Erick Oliva DO Attending Provider Active S tart: January 03, 2025 End: January 03, 2025 Goals (unrecognized section and content) Goals may [...] BE BASED ON THE PRIMARY CLINICAL RECORDS. [employer] [facility]. provides no warranty or guarantee of the accuracy or completeness of information in this document.
--- NOTE | 2025-02-24 10:11 | PC.NURSE ---
Patient tolerated Lexiscan stress test as expected. Nausea with Lexiscan injection resolved after rest. 2 assist to the bathroom with wheelchair. Kept in stress test room with CT tech and family supervision until scans.
[2025-02-24] MEDS: REGADENOSON 0.4 MG/5 ML SYRINGE IV (10:21)
--- NOTE | 2025-02-26 17:59 | PM.STRESS ---
Stress Test Stress Test Allergies Allergy/AdvReac Type Severity Reaction Status Date / Time aspirin AdvReac Severe shortness Verified 01/03/25 12:57 of breath codeine AdvReac Severe shortness Verified 01/03/25 12:57 of breath morphine AdvReac Severe shortness Verified 01/03/25 12:57 of breath propoxyphene (From Darvon) AdvReac Mild shortness Verified 01/03/25 12:57 of breath Requesting physician: Lefty Salcedo Procedure: This was a Lexiscan stress test with myocardial perfusion imaging performed at the [facility] on 02/24/2025. Intravenous line was secured. The patient was attached to electrocardiographic monitoring. Baseline vital signs and ECG were obtained. Lexiscan 0.4 mg was administered intravenously followed by administration of Cardiolite. The patient then went on to obtain myocardial perfusion imaging. Resting heart rate was 91 bpm and peak heart rate was 114 bpm. Resting blood pressure was 164/84 and peak blood pressure was 164/84. General Information: Reason for Stress Test: Atrial fibrillation, CAD. Cardiac History and Risk Factors: Hypertension, CAD, atrial fibrillation. Resting 12 - Lead Electrocardiogram: Sinus rhythm with nonspecific ST abnormality. Stress Test: Protocol: Pharmacologic stress with Lexiscan. Exercise Capacity: Not assessed. Blood Pressure Response: Resting hypertension. Rhythm: Sinus rhythm with occasional PVCs. ST - Response: No ischemic ST changes. Patient Response: No symptoms. Interpretation: 1. No evidence of ischemic ECG changes seen following infusion of Lexiscan. 2. Myocardial perfusion images will be reported separately.
== END 2025-02-24 08:08 | disposition home or self-care (01) ==
LOC: NM 08:08
PROVIDERS: PCP Family Medicine; Visit Provider Internal Medicine Cardiovascular Disease
DX: I48.0 Paroxysmal atrial fibrillation (principal); I25.10 Atherosclerotic heart disease of native coronary artery without angina pectoris; I25.83 Coronary atherosclerosis due to lipid rich plaque
CPT/HCPCS: 78452; 93017; A9500; J2785